=== PATIENT | male | born 1960 | race Caucasian/White ===

== ENCOUNTER 2017-12-13 18:45 | Inpatient (IN) | payer BC, SELFPAY ==
[2017-12-13 19:15] VITALS: BP 152/86; PULSE 100; RESP 18; TEMP 36.8; O2SAT 97; BMI 33.7
[2017-12-13] MEDS: fentaNYL 25 MCG Patch TRANSDERM. (20:17)
[2017-12-13] MEDS: oxyCODONE 5 MG Tablet PO (20:30)
[2017-12-13 20:37] VITALS: BMI 33.7
--- NOTE | 2017-12-13 20:54 | NURSING ---
pt reclining in bed with spouse at bedside. Pain medication administered and pt feeling fatigued. Will continue to monitor
[2017-12-13 21:05] VITALS: BP 150/86; PULSE 102; RESP 18; TEMP 36.8; O2SAT 97
[2017-12-13] MEDS: Atorvastatin Calcium 40 MG Tablet 80 MG PO (21:20)
[2017-12-13] MEDS: Gabapentin 300 MG Capsule PO (21:21)
[2017-12-13] MEDS: Senna/Docusate Sodium 1 Tablet 2 TABLET PO (21:21)
[2017-12-13] MEDS: Acetaminophen 500 MG Tablet 1000 MG PO (21:21)
[2017-12-13 21:45] LABS: Bedside Glucose 133 mg/dL (70-110)
[2017-12-13 22:00] VITALS: PULSE 102
[2017-12-14 05:55] LABS: Hematocrit 32.1 % (40-54); Hemoglobin 10.5 g/dl (13.0-16.5); Mean Corp Hgb Conc 32.7 g/gl (32-36); Mean Corpuscular Hgb 28.1 pg (27.0-32.0); Mean Corpuscular Volume 85.8 fL (80-94); Mean Platelet Vol. 8.5 fl (6.2-12.0); Platelet Count 355 K/mm3 (150-450); RBC Distribution Width CV 13.4 % (11.6-14.6); RBC Distribution Width SD 42.4 fl (35.1-43.9); Red Blood Count 3.74 M/mm3 (4.6-6.2); White Blood Count 11.7 K/mm3 (4.4-11.0)
[2017-12-14 06:04] LABS: Anion Gap 8 (5-15); BUN 22 mg/dL (7-18); BUN/Creat Ratio 29.3 RATIO (10-20); Calcium,Total 8.2 mg/dL (8.5-10.1); Chloride 96 mmol/L (98-107); Creatinine, Serum 0.75 mg/dL (0.70-1.30); EST Glomerular Filtration Rate 114 mL/min (>60); Est Glom Filt Rate - Afr Amer 138 mL/min (>60); Estimated Creatinine Clearance 127.87 ml/min; Glucose 121 mg/dL (74-106); Magnesium 2.3 mg/dL (1.6-2.6); Potassium 4.1 mmol/L (3.5-5.1); Sodium Level 132 mmol/L (136-145)
[2017-12-14 06:09] LABS: Scan Indicated on CBC? Y/N NO
[2017-12-14] MEDS: Acetaminophen 500 MG Tablet 1000 MG PO ×2 (06:39→13:18)
[2017-12-14] MEDS: Enoxaparin 40 MG/0.4 ML Syringe SC (06:39)
[2017-12-14 06:51] LABS: Bedside Glucose 129 mg/dL (70-110)
[2017-12-14 09:44] VITALS: BP 106/71; PULSE 115; RESP 18; TEMP 36.7; O2SAT 95
[2017-12-14] MEDS: oxyCODONE 5 MG Tablet PO ×3 (09:44→18:18)
[2017-12-14] MEDS: Citalopram 40 MG TABLET PO (09:45)
[2017-12-14] MEDS: amLODIPine 5 MG Tablet 10 MG PO (09:45)
[2017-12-14] MEDS: Ascorbic Acid 500 MG Tablet PO ×2 (09:45→17:17)
[2017-12-14] MEDS: hydroCHLOROthiazide 25 MG Tablet PO (09:45)
[2017-12-14 09:50] VITALS: PULSE 123
--- NOTE | 2017-12-14 10:12 | PCM.HP.COS ---
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 He has had ongoing knee pain and underwent a bilateral total knee replacement surgery performed 12/08/17 at the [facility] performed by Dr. Zamora. The postoperative course was uneventful however he did experience some pain. He now presents to [facility] acute rehab unit for rehabilitation in order to return home to his previous level of functional independence. He lives in a two-story house with his family as above, he will need to be able to manage stairs as well as travel to his basement. Past Medical History Past Medical History (Chronic Problems): Chronic Problems Depression (Chronic) Benign essential hypertension (Chronic) Low back pain (Chronic) Urinary incontinence (Chronic) Obesity (BMI 30.0-34.9) (Chronic) Elevated PSA (Chronic) recent biopsies done by DR. Monk are negative Allergies iohexol [From Omnipaque] Allergy (Verified 12/13/17 22:05) Rash Home Medications: Ambulatory Orders Medication Instructions Recorded Citalopram Hydrobromide 40 mg PO DAILY 07/05/16 [Citalopram HBr] Amlodipine [Norvasc] 10 mg PO DAILY 12/13/17 Aspirin E.C. [Ecotrin] mg PO 12/13/17 Atorvastatin Calcium [Lipitor] 80 mg PO QHS 12/13/17 Divalproex (ER) [Depakote ER] mg PO 12/13/17 Lisinopril [Zestril] mg PO 12/13/17 Pantoprazole Sodium [Protonix] 12/13/17 VTE Information - Inpt Only VTE Pharm Prophylaxis ordered?: Yes - Physical Exam Vital Signs Temp Pulse Resp BP Pulse Ox 36.7 C 123 H 18 106/71 95 12/14/17 09:44 12/14/17 09:50 12/14/17 09:44 12/14/17 09:44 12/14/17 09:44 Oxygen Delivery Method Room Air Weight: 119.204 kg Body Mass Index (BMI) 33.7 Finger Stick Blood Glucose 237 Intake and Output for Last 24 Hours 12/12/17 12/13/17 12/14/17 23:59 23:59 23:59 Intake Total 240 / 240 Balance 240 / 240 Laboratory Tests Past 24 Hrs 12/14/17 12/14/17 05:30 05:30 WBC 11.7 H RBC 3.74 L Hgb 10.5 L Hct 32.1 L MCV 85.8 MCH 28.1 MCHC 32.7 RDW 13.4 RDW Differential 42.4 Plt Count 355 MPV 8.5 Sodium 132 L Potassium 4.1 Chloride 96 L Carbon Dioxide 28.0 Anion Gap 8 BUN 22 H Creatinine 0.75 Estim Creat Clear Calc 127.87 Est GFR (MDRD) Af Amer 138 Est GFR (MDRD) Non-Af 114 BUN/Creatinine Ratio 29.3 H Glucose 121 H Calcium 8.2 L Phosphorus 3.0 Magnesium 2.3 POC Glucose 12/14/17 12/13/17 06:38 21:28 POC Glucose 129 H 133 H Assessment/Plan Impression: Debility status post bilateral knee replacement surgery complicated by history of hypertension, hyperlipidemia, and controlled depression. Goal of therapy is religious of prior level of functional independence. Plan: Physical therapy for gait and balance Occupational Therapy for ADLs As needed analgesics Bowel protocol Continue Celexa, depression appears to repeat a remote issue at this point Norvasc and hydrochlorothiazide for hypertension, controlled Lipitor for hyperlipidemia DVT prophylaxis: Lovenox <Jazmin Terrazas - Last Filed: 12/14/17 12:11> History of Present Illness The patient is a 57 year old right handed male, who was admitted to the rehab unit for rehabilitation after under going Bilateral Knee replacement at [facility] by Dr. Zamora on 12/08/17. The postoperative course was uncomplicated, he was experiencing a great deal of pain and discomfort and did have an episode of vagally down when using the toilet, but since then has had no issues. He has a pass medical history of HTN, HLD, BPH, Gout, Lumbago and a CVA in 2016, which left him with some memory difficulty. He is Obese with a BMI of 32.87. He lives with his and children in a 2 story home with 3 steps to get into the house and 13 steps to get up to their bedroom on the second floor. He is previously completely functionally independent, was driving, working and doing all his own ADL prior to his surgery. He is admitted to the rehab unit in order to restore his previous level of functional independence. Past Medical History Allergies iohexol [From Omnipaque] Allergy (Verified 12/13/17 22:05) Rash Surgical History: appendectomy, - - cervical dusion in [id number], prostate biopsy Psychiatric History: Depression - does not take his medication routinely Lives: Spouse/ Significant Other Smoking Status: Never smoker Alcohol: Occasional Drugs: None - *Family History Maternal History Items: - - His mother of a brain aneurysm, age 65 Paternal History Items: Cancer - bone and lung, age 75, - Review of Systems Constitutional: Denies: Chills, Fever, Weight Change HEENT: Denies: Head Aches, Sinus Congestion, Sinus Drainage Cardiovascular: Denies: Chest Pain, Palpitations Respiratory: Denies: Cough, Shortness of breath at rest, Sputum production Gastrointestinal: Denies: Abdominal Pain, Nausea, Vomiting Genitourinary: Denies: Dysuria Musculoskeletal: Denies: Joint Pain, Joint Tenderness Skin: Denies: Rash, Wounds Neurological: Denies: Numbness, Tingling, Focal weakness Psychiatric: Denies: Anxiety, Depression, Homicidal Ideations, Suicidal Ideations Hematologic/ Lymphatic: Denies: Easy Bruising, Easy Bleeding VTE Information - Inpt Only VTE Present on Admission: No VTE Mechan Device Prophylaxis: SCD's, Knee High AFTAB Hose VTE Pharm Prophylaxis ordered?: Yes - Physical Exam General: Alert, Oriented x3, Cooperative HEENT: Atraumatic, PERRLA, EOMI, Normocephalic Neck: Supple, No JVD, Negative Carotid Bruits Lungs: Clear to auscultation, Normal air movement Cardiovascular: Regular rate, No murmurs Abdomen: Bowel Sounds Present, Soft, Non Tender Extremities: No edema, Capillary Refill Less than 3 Seconds, - - Bilaterial knee incision, closed with dermabond, dressing in place is C/D/I, each incision measures 19cm, there is no drainage noted. Skin: No rashes, No breakdown Musculoskeletal: No Tenderness to Palpation of Joints or Extremities Neurological: Cranial nerves II-XII grossly intact Psych/Mental Status: Normal Affect, Appropriate, Alert and oriented to time, place, person, mood and affect Vital Signs Temp Pulse Resp BP Pulse Ox 98.1 F 123 H 18 106/71 95 12/14/17 09:44 12/14/17 09:50 12/14/17 09:44 12/14/17 09:44 12/14/17 09:44 Oxygen Delivery Method Room Air Weight: 119.204 kg Body Mass Index (BMI) 33.7 Finger Stick Blood Glucose 237 Intake and Output for Last 24 Hours 12/12/17 12/13/17 12/14/17 23:59 23:59 23:59 Intake Total 240 / 240 Balance 240 / 240 Laboratory Tests Past 24 Hrs 12/14/17 12/14/17 05:30 05:30 WBC 11.7 H RBC 3.74 L Hgb 10.5 L Hct 32.1 L MCV 85.8 MCH 28.1 MCHC 32.7 RDW 13.4 RDW Differential 42.4 Plt Count 355 MPV 8.5 Sodium 132 L Potassium 4.1 Chloride 96 L Carbon Dioxide 28.0 Anion Gap 8 BUN 22 H Creatinine 0.75 Estim Creat Clear Calc 127.87 Est GFR (MDRD) Af Amer 138 Est GFR (MDRD) Non-Af 114 BUN/Creatinine Ratio 29.3 H Glucose 121 H Calcium 8.2 L Phosphorus 3.0 Magnesium 2.3 POC Glucose 12/14/17 12/13/17 06:38 21:28 POC Glucose 129 H 133 H Active Medications Acetaminophen (Tylenol) 1,000 mg PO Q8 [facility] Last Admin: 12/14/17 06:39 Dose: 1,000 mg Amlodipine Besylate (Norvasc) 10 mg PO DAILY [facility] Last Admin: 12/14/17 09:45 Dose: 10 mg Ascorbic Acid (Vitamin C) 500 mg PO BIDCM [facility] Last Admin: 12/14/17 09:45 Dose: 500 mg Atorvastatin Calcium (Lipitor) 80 mg PO QHS [facility] Last Admin: 12/13/17 21:20 Dose: 80 mg Bisacodyl (Dulcolax) 10 mg RECTAL .PRN X 1 PRN PRN Reason: Constipation Citalopram Hydrobromide (Celexa) 40 mg PO DAILY [facility] Last Admin: 12/14/17 09:45 Dose: 40 mg Enoxaparin Sodium (Lovenox) 40 mg SC DAILY@0600 [facility] Last Admin: 04/03/18 06:39 Dose: 40 mg Fentanyl (Duragesic Patch) 25 mcg TRANSDERM. Q3D [facility] Last Admin: 12/13/17 20:17 Dose: 25 mcg Gabapentin (Neurontin) 300 mg PO QHS [facility] Last Admin: 12/13/17 21:21 Dose: 300 mg Hydrochlorothiazide (Hctz) 25 mg PO DAILY [facility] Last Admin: 12/14/17 09:45 Dose: 25 mg Magnesium Hydroxide (Milk Of Magnesia) 30 ml PO .PRN X 1 PRN PRN Reason: Constipation Ondansetron HCl (Zofran Odt) 4 mg PO Q6H PRN PRN PRN Reason: NAUSEA Oxycodone HCl (Oxyir) 5 - 10 mg PO Q6H PRN PRN PRN Reason: PAIN Last Admin: 12/14/17 09:44 Dose: 10 mg Polyethylene Glycol (Miralax) 17 gm PO DAILY PRN PRN PRN Reason: Constipation Senna/Docusate Sodium (Senokot-S, Zeenat-Colace) 2 tablet PO BID [facility] Last Admin: 12/14/17 09:47 Dose: Not Given
--- NOTE | 2017-12-14 10:23 | HP.PCM.COS_ITS ---
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 He has had ongoing knee pain and underwent a bilateral total knee replacement surgery performed 12/08/17 at the [facility] performed by Dr. Zamora. The postoperative course was uneventful however he did experience some pain. He now presents to [facility] acute rehab unit for rehabilitation in order to return home to his previous level of functional independence. He lives in a two-story house with his family as above, he will need to be able to manage stairs as well as travel to his basement. Past Medical History Past Medical History (Chronic Problems): Chronic Problems Depression (Chronic) Benign essential hypertension (Chronic) Low back pain (Chronic) Urinary incontinence (Chronic) Obesity (BMI 30.0-34.9) (Chronic) Elevated PSA (Chronic) recent biopsies done by DR. Monk are negative Allergies iohexol [From Omnipaque] Allergy (Verified 12/13/17 22:05) Rash Home Medications: Ambulatory Orders Medication Instructions Recorded Citalopram Hydrobromide 40 mg PO DAILY 07/05/16 [Citalopram HBr] Amlodipine [Norvasc] 10 mg PO DAILY 12/13/17 Aspirin E.C. [Ecotrin] mg PO 12/13/17 Atorvastatin Calcium [Lipitor] 80 mg PO QHS 12/13/17 Divalproex (ER) [Depakote ER] mg PO 12/13/17 Lisinopril [Zestril] mg PO 12/13/17 Pantoprazole Sodium [Protonix] 12/13/17 VTE Information - Inpt Only VTE Pharm Prophylaxis ordered?: Yes - Physical Exam Vital Signs Temp Pulse Resp BP Pulse Ox 36.7 C 123 H 18 106/71 95 12/14/17 09:44 12/14/17 09:50 12/14/17 09:44 12/14/17 09:44 12/14/17 09:44 Oxygen Delivery Method Room Air Weight: 119.204 kg Body Mass Index (BMI) 33.7 Finger Stick Blood Glucose 237 Intake and Output for Last 24 Hours 12/12/17 12/13/17 12/14/17 23:59 23:59 23:59 Intake Total 240 / 240 Balance 240 / 240 Laboratory Tests Past 24 Hrs 12/14/17 12/14/17 05:30 05:30 WBC 11.7 H RBC 3.74 L Hgb 10.5 L Hct 32.1 L MCV 85.8 MCH 28.1 MCHC 32.7 RDW 13.4 RDW Differential 42.4 Plt Count 355 MPV 8.5 Sodium 132 L Potassium 4.1 Chloride 96 L Carbon Dioxide 28.0 Anion Gap 8 BUN 22 H Creatinine 0.75 Estim Creat Clear Calc 127.87 Est GFR (MDRD) Af Amer 138 Est GFR (MDRD) Non-Af 114 BUN/Creatinine Ratio 29.3 H Glucose 121 H Calcium 8.2 L Phosphorus 3.0 Magnesium 2.3 POC Glucose 12/14/17 12/13/17 06:38 21:28 POC Glucose 129 H 133 H Assessment/Plan Impression: Debility status post bilateral knee replacement surgery complicated by history of hypertension, hyperlipidemia, and controlled depression. Goal of therapy is sikh of prior level of functional independence. Plan: Physical therapy for gait and balance Occupational Therapy for ADLs As needed analgesics Bowel protocol Continue Celexa, depression appears to repeat a remote issue at this point Norvasc and hydrochlorothiazide for hypertension, controlled Lipitor for hyperlipidemia DVT prophylaxis: Lovenox <Jazmin Terrazas - Last Filed: 12/14/17 12:11> History of Present Illness The patient is a 57 year old right handed male, who was admitted to the rehab unit for rehabilitation after under going Bilateral Knee replacement at [facility] by Dr. Zamora on 12/08/17. The postoperative course was uncomplicated, he was experiencing a great deal of pain and discomfort and did have an episode of vagally down when using the toilet, but since then has had no issues. He has a pass medical history of HTN, HLD, BPH, Gout, Lumbago and a CVA in 2016, which left him with some memory difficulty. He is Obese with a BMI of 32.87. He lives with his and children in a 2 story home with 3 steps to get into the house and 13 steps to get up to their bedroom on the second floor. He is previously completely functionally independent, was driving, working and doing all his own ADL prior to his surgery. He is admitted to the rehab unit in order to restore his previous level of functional independence. Past Medical History Allergies iohexol [From Omnipaque] Allergy (Verified 12/13/17 22:05) Rash Surgical History: appendectomy, - - cervical dusion in [id number], prostate biopsy Psychiatric History: Depression - does not take his medication routinely Lives: Spouse/ Significant Other Smoking Status: Never smoker Alcohol: Occasional Drugs: None - *Family History Maternal History Items: - - His mother of a brain aneurysm, age 65 Paternal History Items: Cancer - bone and lung, age 75, - Review of Systems Constitutional: Denies: Chills, Fever, Weight Change HEENT: Denies: Head Aches, Sinus Congestion, Sinus Drainage Cardiovascular: Denies: Chest Pain, Palpitations Respiratory: Denies: Cough, Shortness of breath at rest, Sputum production Gastrointestinal: Denies: Abdominal Pain, Nausea, Vomiting Genitourinary: Denies: Dysuria Musculoskeletal: Denies: Joint Pain, Joint Tenderness Skin: Denies: Rash, Wounds Neurological: Denies: Numbness, Tingling, Focal weakness Psychiatric: Denies: Anxiety, Depression, Homicidal Ideations, Suicidal Ideations Hematologic/ Lymphatic: Denies: Easy Bruising, Easy Bleeding VTE Information - Inpt Only VTE Present on Admission: No VTE Mechan Device Prophylaxis: SCD's, Knee High AFTAB Hose VTE Pharm Prophylaxis ordered?: Yes - Physical Exam General: Alert, Oriented x3, Cooperative HEENT: Atraumatic, PERRLA, EOMI, Normocephalic Neck: Supple, No JVD, Negative Carotid Bruits Lungs: Clear to auscultation, Normal air movement Cardiovascular: Regular rate, No murmurs Abdomen: Bowel Sounds Present, Soft, Non Tender Extremities: No edema, Capillary Refill Less than 3 Seconds, - - Bilaterial knee incision, closed with dermabond, dressing in place is C/D/I, each incision measures 19cm, there is no drainage noted. Skin: No rashes, No breakdown Musculoskeletal: No Tenderness to Palpation of Joints or Extremities Neurological: Cranial nerves II-XII grossly intact Psych/Mental Status: Normal Affect, Appropriate, Alert and oriented to time, place, person, mood and affect Vital Signs Temp Pulse Resp BP Pulse Ox 98.1 F 123 H 18 106/71 95 12/14/17 09:44 12/14/17 09:50 12/14/17 09:44 12/14/17 09:44 12/14/17 09:44 Oxygen Delivery Method Room Air Weight: 119.204 kg Body Mass Index (BMI) 33.7 Finger Stick Blood Glucose 237 Intake and Output for Last 24 Hours 12/12/17 12/13/17 12/14/17 23:59 23:59 23:59 Intake Total 240 / 240 Balance 240 / 240 Laboratory Tests Past 24 Hrs 12/14/17 12/14/17 05:30 05:30 WBC 11.7 H RBC 3.74 L Hgb 10.5 L Hct 32.1 L MCV 85.8 MCH 28.1 MCHC 32.7 RDW 13.4 RDW Differential 42.4 Plt Count 355 MPV 8.5 Sodium 132 L Potassium 4.1 Chloride 96 L Carbon Dioxide 28.0 Anion Gap 8 BUN 22 H Creatinine 0.75 Estim Creat Clear Calc 127.87 Est GFR (MDRD) Af Amer 138 Est GFR (MDRD) Non-Af 114 BUN/Creatinine Ratio 29.3 H Glucose 121 H Calcium 8.2 L Phosphorus 3.0 Magnesium 2.3 POC Glucose 12/14/17 12/13/17 06:38 21:28 POC Glucose 129 H 133 H Active Medications Acetaminophen (Tylenol) 1,000 mg PO Q8 [facility] Last Admin: 12/14/17 06:39 Dose: 1,000 mg Amlodipine Besylate (Norvasc) 10 mg PO DAILY [facility] Last Admin: 12/14/17 09:45 Dose: 10 mg Ascorbic Acid (Vitamin C) 500 mg PO BIDCM [facility] Last Admin: 12/14/17 09:45 Dose: 500 mg Atorvastatin Calcium (Lipitor) 80 mg PO QHS [facility] Last Admin: 12/13/17 21:20 Dose: 80 mg Bisacodyl (Dulcolax) 10 mg RECTAL .PRN X 1 PRN PRN Reason: Constipation Citalopram Hydrobromide (Celexa) 40 mg PO DAILY [facility] Last Admin: 12/14/17 09:45 Dose: 40 mg Enoxaparin Sodium (Lovenox) 40 mg SC DAILY@0600 [facility] Last Admin: 04/03/18 06:39 Dose: 40 mg Fentanyl (Duragesic Patch) 25 mcg TRANSDERM. Q3D [facility] Last Admin: 12/13/17 20:17 Dose: 25 mcg Gabapentin (Neurontin) 300 mg PO QHS [facility] Last Admin: 12/13/17 21:21 Dose: 300 mg Hydrochlorothiazide (Hctz) 25 mg PO DAILY [facility] Last Admin: 12/14/17 09:45 Dose: 25 mg Magnesium Hydroxide (Milk Of Magnesia) 30 ml PO .PRN X 1 PRN PRN Reason: Constipation Ondansetron HCl (Zofran Odt) 4 mg PO Q6H PRN PRN PRN Reason: NAUSEA Oxycodone HCl (Oxyir) 5 - 10 mg PO Q6H PRN PRN PRN Reason: PAIN Last Admin: 12/14/17 09:44 Dose: 10 mg Polyethylene Glycol (Miralax) 17 gm PO DAILY PRN PRN PRN Reason: Constipation Senna/Docusate Sodium (Senokot-S, Zeenat-Colace) 2 tablet PO BID [facility] Last Admin: 12/14/17 09:47 Dose: Not Given
[2017-12-14 11:00] VITALS: PULSE 120
--- NOTE | 2017-12-14 11:30 | NURSING ---
Tachy HR this AM and recheck HR tachy. Dr. Whalen aware. Labs ordered for tomorrow and UA to be done. Patient aware of orders. Very pleasant and cooperative. Patient rating pain high on 1-10 scale even after pain meds given and patient reported he had not taken any pain meds during the night and he should have. Will monitor.
--- NOTE | 2017-12-14 11:31 | PCM.RU.PYE ---
Admission Information Status Changes from Prescreening?: No changes Identified Actual Problem List:: Skin Intergrity, Pain, ALteration in Cmfrt, Depression, Mobility Impaired, Self Care Deficit, BP, Hypertension, Ineffect.D/C Plan r/t Psy Potential Problem List:: DVT, Bleeding, Infection, UTI, Aspiration, Falls, Skin Integrity, Depression Risk of Complications DVT: LMWH, AFTAB Hose, Sequential Compression Device Bleeding: Monitor Lab Values, Nursing to Teach Precautions for anti-coagulation therapy., Wound, if applicable, to be assessed every shift., Stroke patients assessed for lethargy or change in status. Infection: Clinical Staff to Monitor for S/S of infection:, S/S of infection include fever, redness, warmth, etc. Urinary Tract Infection: Monitor for frequency, burning, discomfort, or incontinence., Nursing will obtain urine sample for urinalysis and C&S when ordered. Aspiration: Clinical staff will monitor for coughing, drooling, congestion., Speech will evaluate swallowing and dsyphasia., Nursing will monitor patient swallowing during meals. Falls: Patient will be evaluated for Fall Precautions, Patient will be placed on Fall Precautions as indicated per protocol. Skin Breakdown: Nursing will assess skin daily using assessment tool., Nursing will place on Skin Breakdown Precautions as indicated. Pain: Clinical staff will assess patient's pain level per protocol., Medications will be given, if needed, and the pain level reassessed., Other methods: Massage, distraction, decrease stimulus, etc. used PRN. Plan of Care Patient requires physician specializing in physical medicine and rehab oversight to provide close medical supervision of rehab issues including: Pain Management, Sleep Problems, Bowel and Bladder, Medical and co-morbidity Management, DVT prophylaxis, Rehabilitation Leadership, Coordination of treatment team Patient needs Physical Therapy: For a minimum of 1 hour, At least 5 out of 7 days Patient needs Physical Therapy to improve:: Mobility, Mobility, Mobility, Strengthening, Transfers, Stretching, ROM, Endurance, Stairs, Gait, Balance Patient needs Occupational Therapy: For a minimum of 1 hour, At least 5 out of 7 days Patient needs Occupational Therapy to improve ADL's incl.: Eating, Grooming, Bathing, Dressing, Toileting, Toilet transfers, Community Reintegration, Higher functioning activities, Household tasks, Adaptive Equipment, Splinting, Other activities as determined Patient requires 24/ Rehabilitation Nursing for: Pain Issues, Identifying and preventing risk factors, Monitoring and reporting current medical conditions, Assisting with ambulation, transfer, and all ADL's, Teaching patients about disease process and medications, Family teaching, Providing safe environment, Bowel and Bladder Issues, Skin integrity, Medication Management Patient needs Operator Automated Process/ Case Management for: Discharge Planning, Arranging Home Equipment or Services, Family Interventions Patient needs Dietary and Nutrition Services for: Adequate Nutrition, Nutritional Supplements, Nutritional Education Goals Patient will remain: free from falls, or injury at time of discharge. Patient will perform bed mobility at: MOD I level of assist. Patient will complete transfers from bed to chair at: MOD I level of assist. Patient will ambulate: 100 feet, with MOD I assist, with LRD Patient will complete upper body dressing at: MOD I level of assist. Patient will complete lower body dressing at: MOD I level of assist. Patient will complete toileting at: MOD I level of assist. Patient will perform bathing at: MOD I level of assist. Patient will complete grooming at: MOD I level of assist. Patient will complete home management skills at: MOD I level of assist. Patient will achieve: 12 stairs, at MOD I assist Patient will have pain level of: of 3 or less Patient's skin will: remain intact, free from infection. Patient will receive: adequate nutrition. Discharge Planning Pt Prognosis for Sig. Practical Improv. w/in Reasonable Time: Good Anticipated D/C Destination: Home with Outpt Therapy Was Preadmission Assessment Accurate?: Yes
--- NOTE | 2017-12-14 13:42 | NURSING ---
Blood sugar done now due to patient refused lunch earlier but stated he would eat now.
[2017-12-14 13:46] LABS: Bedside Glucose 166 mg/dL (70-110)
--- NOTE | 2017-12-14 14:33 | PCM.PN.HOSP ---
Subjective: 57-year-old male with past medical history of CVA (2016), adjustment disorder with depression after CVA, hypertension, hyperlipidemia, degenerative disc disease, borderline diabetes type 2, BPH, who is status post bilateral total knee replacement admitted on 12/14/17 for acute rehab. Patient had bilateral total knee replacement surgery done on 12/08/2017 at the [facility]. His pain is fairly controlled, he denies dizziness, palpitations, chets pain, orthopnea, PND, leg swelling. Vitals/I&O's: Vital Signs Temp Pulse Resp BP Pulse Ox 98.1 F 123 H 18 106/71 95 12/14/17 09:44 12/14/17 09:50 12/14/17 09:44 12/14/17 09:44 12/14/17 09:44 Oxygen Delivery Method Room Air Weight: 119.204 kg Body Mass Index (BMI) 33.7 Finger Stick Blood Glucose 237 Intake and Output for Last 24 Hours 12/12/17 12/13/17 12/14/17 23:59 23:59 23:59 Intake Total 240 / 240 Balance 240 / 240 General: Alert, Oriented x3, Cooperative, No apparent distress HEENT: Atraumatic, PERRLA, EOMI, Normocephalic Oral: Moist Mucosa Neck: Supple Lungs: Clear to auscultation, Normal air movement Cardiovascular: Regular rate, Regular Rhythm, Normal S1, Normal S2, No murmurs Abdomen: Bowel Sounds Present, Soft, Non Tender, Non-Distended, No Hepato-splenomegaly, Obese Extremities: No edema Skin: No rashes, No breakdown Musculoskeletal: No Tenderness to Palpation of Joints or Extremities Lymphatic: No Cervical, Supraclavicular, or Inguinal Adenopathy Neurological: Cranial nerves II-XII grossly intact, Neuro grossly intact Psych/Mental Status: Normal Affect, Appropriate Laboratory Results 12/13/17 21:28: POC Glucose 133 H 12/14/17 05:30: WBC 11.7 H, RBC 3.74 L, Hgb 10.5 L, Hct 32.1 L, MCV 85.8, MCH 28.1, MCHC 32.7, RDW 13.4, RDW Differential 42.4, Plt Count 355, MPV 8.5 12/14/17 05:30: Sodium 132 L, Potassium 4.1, Chloride 96 L, Carbon Dioxide 28.0, Anion Gap 8, BUN 22 H, Creatinine 0.75, Estim Creat Clear Calc 127.87, Est GFR (MDRD) Af Amer 138, Est GFR (MDRD) Non-Af 114, BUN/Creatinine Ratio 29.3 H, Glucose 121 H, Calcium 8.2 L, Phosphorus 3.0, Magnesium 2.3 12/14/17 06:38: POC Glucose 129 H 12/14/17 13:40: POC Glucose 166 H Current Medications Acetaminophen (Tylenol) 1,000 mg PO Q8 [facility] Last Admin: 12/14/17 13:18 Dose: 1,000 mg Amlodipine Besylate (Norvasc) 10 mg PO DAILY [facility] Last Admin: 12/14/17 09:45 Dose: 10 mg Ascorbic Acid (Vitamin C) 500 mg PO BIDCM [facility] Last Admin: 12/14/17 09:45 Dose: 500 mg Atorvastatin Calcium (Lipitor) 80 mg PO QHS [facility] Last Admin: 12/13/17 21:20 Dose: 80 mg Bisacodyl (Dulcolax) 10 mg RECTAL .PRN X 1 PRN PRN Reason: Constipation Citalopram Hydrobromide (Celexa) 40 mg PO DAILY [facility] Last Admin: 12/14/17 09:45 Dose: 40 mg Enoxaparin Sodium (Lovenox) 40 mg SC DAILY@0600 [facility] Last Admin: 12/14/17 06:39 Dose: 40 mg Fentanyl (Duragesic Patch) 25 mcg TRANSDERM. Q3D [facility] Last Admin: 12/13/17 20:17 Dose: 25 mcg Gabapentin (Neurontin) 300 mg PO QHS [facility] Last Admin: 12/13/17 21:21 Dose: 300 mg Hydrochlorothiazide (Hctz) 25 mg PO DAILY [facility] Last Admin: 12/14/17 09:45 Dose: 25 mg Magnesium Hydroxide (Milk Of Magnesia) 30 ml PO .PRN X 1 PRN PRN Reason: Constipation Nutritional Formula (Lactose Free) (Ensure Enlive) 120 ml PO 4X/DAY [facility] Last Admin: 12/14/17 13:27 Dose: 120 ml Ondansetron HCl (Zofran Odt) 4 mg PO Q6H PRN PRN PRN Reason: NAUSEA Oxycodone HCl (Oxyir) 5 - 10 mg PO Q4H PRN PRN PRN Reason: PAIN Last Admin: 12/14/17 13:44 Dose: 10 mg Polyethylene Glycol (Miralax) 17 gm PO DAILY PRN PRN PRN Reason: Constipation Senna/Docusate Sodium (Senokot-S, Zeenat-Colace) 2 tablet PO BID [facility] Last Admin: 12/14/17 09:47 Dose: Not Given Medical Necessity - Tobacco Use Smoking Status: Never smoker Tobacco Use: Non-smoker Assessment/Plan 57-year-old male with past medical history of CVA (2016), adjustment disorder with depression after CVA, hypertension, hyperlipidemia, degenerative disc disease(neck), borderline diabetes type 2, BPH, who is status post bilateral total knee replacement admitted on 12/14/17 for acute rehab. Patient had bilateral total knee replacement surgery done on 12/08/2017 at the [facility]. 1. Debility due to recent bilateral knee replacement, here for rehabilitation 2. Bilateral knee replacement, in a patient by Dr. Aguilar arthritis, pain is fairly controlled on [place], will continue with therapy 3. Hypertension, controlled, continue home medication - amlodipine, HCTZ 4. Hyperlipidemia, on statin 5. Osteoarthritis of the knees/neck 6. Anxiety/depression, on Celexa 7. History of CVA, not on aspirin, on statin, 8. DVT PPx - Lovenox SC Code Visit Inpatient E&M: 33100 Subs Hosp L2
[2017-12-14 14:34] LABS: Bacteria 0 SEEN /hpf (None Seen); Mucous, Urine 0 SEEN /hpf (<or=2+); Red Blood Cells-Urine 0 SEEN /hpf (0-5); White Blood Cells 0 SEEN /hpf (0-5)
[2017-12-14 14:51] LABS: Squamous Epithelial Cells - UA 0-5 SEEN /hpf (0-5)
[2017-12-14 14:54] LABS: Color, Urine Yellow (Yellow); Glucose, Dipstick Normal (Normal); Ketone-Dipstick Negative (Negative); Leukocyte Esterase-Dipstick Negative /ul (Negative); Nitrite-Dipstick Negative (Negative); Occult Blood-Urine Negative /ul (Negative); Protein-Dipstick 15 mg/dl (Negative); Specific Gravity, Urine 1.015 (1.002-1.030); Urine Bilirubin Dipstick Negative (Negative); Urine Clarity Clear (Clear); Urine Urobilinogen 1 mg/dl (Normal)
[2017-12-14] MEDS: Senna/Docusate Sodium 1 Tablet 2 TABLET PO ×2 (17:17→21:12)
[2017-12-14 17:30] LABS: Bedside Glucose 121 mg/dL (70-110)
[2017-12-14 20:13] VITALS: PULSE 103
[2017-12-14 20:43] VITALS: BP 150/68; PULSE 103; RESP 18; TEMP 36.7; O2SAT 96
[2017-12-14 20:55] LABS: Bedside Glucose 148 mg/dL (70-110)
[2017-12-14] MEDS: Gabapentin 300 MG Capsule PO (21:12)
[2017-12-14] MEDS: Atorvastatin Calcium 40 MG Tablet 80 MG PO (21:12)
--- NOTE | 2017-12-14 21:46 | NURSING ---
pt Acetaminophen dosage exceeded with mg per day. Hospitalist called. N/O for 1xdose of Dilaudid 2mg provided for pain -03/22.
[2017-12-14] MEDS: Ondansetron ODT 4 MG Tablet PO (22:13)
[2017-12-14] MEDS: HYDROmorphone 2 MG TABLET PO (22:13)
[2017-12-15] MEDS: oxyCODONE 5 MG Tablet PO ×2 (03:00→07:36)
[2017-12-15] MEDS: Acetaminophen 500 MG Tablet 1000 MG PO (05:16)
[2017-12-15] MEDS: Enoxaparin 40 MG/0.4 ML Syringe SC (05:17)
--- NOTE | 2017-12-15 05:38 | NURSING ---
Dressing removed 05:40 on 12/15/2017. Scant drainage on right incision. No drainage to left drainage. Both left NIKKI. 2 steri strips per knee, 1 proximal and 1 distal incision. PT tolerated well
[2017-12-15 06:36] LABS: Bedside Glucose 198 mg/dL (70-110)
[2017-12-15 07:00] LABS: Hematocrit 32.7 % (40-54); Hemoglobin 10.6 g/dl (13.0-16.5); Mean Corp Hgb Conc 32.4 g/gl (32-36); Mean Corpuscular Hgb 27.9 pg (27.0-32.0); Mean Corpuscular Volume 86.1 fL (80-94); Mean Platelet Vol. 8.6 fl (6.2-12.0); Platelet Count 411 K/mm3 (150-450); RBC Distribution Width CV 13.4 % (11.6-14.6); RBC Distribution Width SD 42.1 fl (35.1-43.9); White Blood Count 15.2 K/mm3 (4.4-11.0)
[2017-12-15 07:02] LABS: Scan Indicated on CBC? Y/N NO
[2017-12-15] MEDS: Ascorbic Acid 500 MG Tablet PO ×2 (07:36→15:51)
[2017-12-15] MEDS: Senna/Docusate Sodium 1 Tablet 2 TABLET PO ×2 (07:36→21:33)
[2017-12-15 10:00] VITALS: BP 154/98; PULSE 104; RESP 16; TEMP 36.9; O2SAT 94
[2017-12-15] MEDS: amLODIPine 5 MG Tablet 10 MG PO (10:07)
[2017-12-15] MEDS: hydroCHLOROthiazide 25 MG Tablet PO (10:07)
[2017-12-15] MEDS: Citalopram 40 MG TABLET PO (10:07)
--- NOTE | 2017-12-15 10:26 | PCM.PN.NEU ---
Subjective: Patient seen and examined. Tolerating therapy. Bilateral incision, dressing is C/D/I, incision is well approximated, no redness or warmth noted along incision line. Denies any shortness of breath or chest pain. Denies any pain in his calves, or swelling in his legs. No issues with GI/. Patient had a CVA in 2015, was started on a statin but was not started on ASA or Plavix at that time, Denies a hx of ulcers or bleeding disorder, will start ASA 81mg. - Physical Exam General: Alert, Oriented x3, Cooperative HEENT: Atraumatic, PERRLA, EOMI, Normocephalic Neck: Supple, No JVD, Negative Carotid Bruits Lungs: Clear to auscultation, Normal air movement Cardiovascular: Regular rate, No murmurs Abdomen: Bowel Sounds Present, Soft, Non Tender Extremities: No edema, Capillary Refill Less than 3 Seconds Skin: No rashes, No breakdown Musculoskeletal: No Tenderness to Palpation of Joints or Extremities Neurological: Cranial nerves II-XII grossly intact Psych/Mental Status: Normal Affect, Appropriate Vital Signs Temp Pulse Resp BP Pulse Ox 98.1 F 104 H 16 154/98 H 94 12/14/17 20:43 12/15/17 10:00 12/15/17 10:00 12/15/17 10:00 12/15/17 10:00 Oxygen Delivery Method Room Air Weight: 113.2 kg Body Mass Index (BMI) 33.7 Finger Stick Blood Glucose 237 Intake and Output for Last 24 Hours 12/13/17 12/14/17 12/15/17 23:59 23:59 23:59 Intake Total 480 / 480 240 / 240 Output Total 250 / 250 325 / 325 Balance -250 / -250 155 / 155 240 / 240 Laboratory Tests Past 24 Hrs 12/14/17 12/15/17 13:09 06:45 WBC 15.2 H RBC 3.80 L Hgb 10.6 L Hct 32.7 L MCV 86.1 MCH 27.9 MCHC 32.4 RDW 13.4 RDW Differential 42.1 Plt Count 411 MPV 8.6 Urine Color Yellow Urine Clarity Clear Urine pH 6.0 Ur Specific [place] 1.015 Urine Protein 15 H Urine Glucose (UA) Normal Urine Ketones Negative Urine Occult Blood Negative Urine Nitrite Negative Urine Bilirubin Negative Urine Urobilinogen 1 H Ur Leukocyte Esterase Negative Urine RBC 0 SEEN Urine WBC 0 SEEN Ur Squamous Epith Cells 0-5 SEEN Urine Bacteria 0 SEEN Urine Mucus 0 SEEN POC Glucose 12/15/17 12/14/17 12/14/17 06:30 20:47 17:23 POC Glucose 198 H 148 H 121 H 12/14/17 13:40 POC Glucose 166 H Active Medications Acetaminophen (Tylenol) 1,000 mg PO Q8 [facility] Last Admin: 12/15/17 05:16 Dose: 1,000 mg Amlodipine Besylate (Norvasc) 10 mg PO DAILY [facility] Last Admin: 12/15/17 10:07 Dose: 10 mg Ascorbic Acid (Vitamin C) 500 mg PO BIDCM [facility] Last Admin: 12/15/17 07:36 Dose: 500 mg Atorvastatin Calcium (Lipitor) 80 mg PO QHS [facility] Last Admin: 12/14/17 21:12 Dose: 80 mg Bisacodyl (Dulcolax) 10 mg RECTAL .PRN X 1 PRN PRN Reason: Constipation Citalopram Hydrobromide (Celexa) 40 mg PO DAILY [facility] Last Admin: 12/15/17 10:07 Dose: 40 mg Enoxaparin Sodium (Lovenox) 40 mg SC DAILY@0600 [facility] Last Admin: 12/15/17 05:17 Dose: 40 mg Fentanyl (Duragesic Patch) 25 mcg TRANSDERM. Q3D [facility] Fentanyl (Duragesic Patch) 12 mcg TRANSDERM. Q72H [facility] Gabapentin (Neurontin) 300 mg PO QHS [facility] Last Admin: 12/14/17 21:12 Dose: 300 mg Hydrochlorothiazide (Hctz) 25 mg PO DAILY [facility] Last Admin: 12/15/17 10:07 Dose: 25 mg Magnesium Hydroxide (Milk Of Magnesia) 30 ml PO .PRN X 1 PRN PRN Reason: Constipation Megestrol Acetate (Megace) 40 mg PO 4X/DAY [facility] Nutritional Formula (Lactose Free) (Ensure Enlive) 120 ml PO 4X/DAY [facility] Last Admin: 12/15/17 10:07 Dose: 120 ml Ondansetron HCl (Zofran Odt) 4 mg PO Q6H PRN PRN PRN Reason: NAUSEA Last Admin: 12/14/17 22:13 Dose: 4 mg Oxycodone HCl (Oxyir) 5 - 10 mg PO Q4H PRN PRN PRN Reason: PAIN Last Admin: 12/15/17 07:36 Dose: 10 mg Polyethylene Glycol (Miralax) 17 gm PO DAILY PRN PRN PRN Reason: Constipation Senna/Docusate Sodium (Senokot-S, Zeenat-Colace) 2 tablet PO BID [facility] Last Admin: 12/15/17 07:36 Dose: 2 tablet Medical Necessity - Tobacco Use Smoking Status: Never smoker Tobacco Use: Non-smoker Assessment/Plan Impression: Debility status post bilateral knee replacement surgery complicated by history of hypertension, hyperlipidemia, and controlled depression. Goal of therapy is hinduism of prior level of functional independence. Plan: - Physical therapy for gait and balance - Occupational Therapy for ADLs - As needed analgesics - Bowel protocol - Continue Celexa, depression appears to repeat a remote issue at this point - Norvasc and hydrochlorothiazide for hypertension, controlled - Lipitor for hyperlipidemia - DVT prophylaxis: Lovenox, SCD, and Mino juan antonio - Increased fentanyl patch to 37 mcq - Poor appetite -> added Megace - Stroke prevention: ASA 81mg, and Statin
--- NOTE | 2017-12-15 10:46 | PN.NEURO_ITS ---
Subjective: Patient seen and examined. Tolerating therapy. Bilateral incision, dressing is C/D/I, incision is well approximated, no redness or warmth noted along incision line. Denies any shortness of breath or chest pain. Denies any pain in his calves, or swelling in his legs. No issues with GI/. Patient had a CVA in 2015 , was started on a statin but was not started on ASA or Plavix at that time, Denies a hx of ulcers or bleeding disorder, will start ASA 81mg. - Physical Exam General: Alert, Oriented x3, Cooperative HEENT: Atraumatic, PERRLA, EOMI, Normocephalic Neck: Supple, No JVD, Negative Carotid Bruits Lungs: Clear to auscultation, Normal air movement Cardiovascular: Regular rate, No murmurs Abdomen: Bowel Sounds Present, Soft, Non Tender Extremities: No edema, Capillary Refill Less than 3 Seconds Skin: No rashes, No breakdown Musculoskeletal: No Tenderness to Palpation of Joints or Extremities Neurological: Cranial nerves II-XII grossly intact Psych/Mental Status: Normal Affect, Appropriate Vital Signs Temp Pulse Resp BP Pulse Ox 98.1 F 104 H 16 154/98 H 94 12/14/17 20:43 12/15/17 10:00 12/15/17 10:00 12/15/17 10:00 12/15/17 10:00 Oxygen Delivery Method Room Air Weight: 113.2 kg Body Mass Index (BMI) 33.7 Finger Stick Blood Glucose 237 Intake and Output for Last 24 Hours 12/13/17 12/14/17 12/15/17 23:59 23:59 23:59 Intake Total 480 / 480 240 / 240 Output Total 250 / 250 325 / 325 Balance -250 / -250 155 / 155 240 / 240 Laboratory Tests Past 24 Hrs 12/14/17 12/15/17 13:09 06:45 WBC 15.2 H RBC 3.80 L Hgb 10.6 L Hct 32.7 L MCV 86.1 MCH 27.9 MCHC 32.4 RDW 13.4 RDW Differential 42.1 Plt Count 411 MPV 8.6 Urine Color Yellow Urine Clarity Clear Urine pH 6.0 Ur Specific [place] 1.015 Urine Protein 15 H Urine Glucose (UA) Normal Urine Ketones Negative Urine Occult Blood Negative Urine Nitrite Negative Urine Bilirubin Negative Urine Urobilinogen 1 H Ur Leukocyte Esterase Negative Urine RBC 0 SEEN Urine WBC 0 SEEN Ur Squamous Epith Cells 0-5 SEEN Urine Bacteria 0 SEEN Urine Mucus 0 SEEN POC Glucose 12/15/17 12/14/17 12/14/17 06:30 20:47 17:23 POC Glucose 198 H 148 H 121 H 12/14/17 13:40 POC Glucose 166 H Active Medications Acetaminophen (Tylenol) 1,000 mg PO Q8 [facility] Last Admin: 12/15/17 05:16 Dose: 1,000 mg Amlodipine Besylate (Norvasc) 10 mg PO DAILY [facility] Last Admin: 12/15/17 10:07 Dose: 10 mg Ascorbic Acid (Vitamin C) 500 mg PO BIDCM [facility] Last Admin: 12/15/17 07:36 Dose: 500 mg Atorvastatin Calcium (Lipitor) 80 mg PO QHS [facility] Last Admin: 12/14/17 21:12 Dose: 80 mg Bisacodyl (Dulcolax) 10 mg RECTAL .PRN X 1 PRN PRN Reason: Constipation Citalopram Hydrobromide (Celexa) 40 mg PO DAILY [facility] Last Admin: 12/15/17 10:07 Dose: 40 mg Enoxaparin Sodium (Lovenox) 40 mg SC DAILY@0600 [facility] Last Admin: 12/15/17 05:17 Dose: 40 mg Fentanyl (Duragesic Patch) 25 mcg TRANSDERM. Q3D [facility] Fentanyl (Duragesic Patch) 12 mcg TRANSDERM. Q72H [facility] Gabapentin (Neurontin) 300 mg PO QHS [facility] Last Admin: 12/14/17 21:12 Dose: 300 mg Hydrochlorothiazide (Hctz) 25 mg PO DAILY [facility] Last Admin: 12/15/17 10:07 Dose: 25 mg Magnesium Hydroxide (Milk Of Magnesia) 30 ml PO .PRN X 1 PRN PRN Reason: Constipation Megestrol Acetate (Megace) 40 mg PO 4X/DAY [facility] Nutritional Formula (Lactose Free) (Ensure Enlive) 120 ml PO 4X/DAY [facility] Last Admin: 12/15/17 10:07 Dose: 120 ml Ondansetron HCl (Zofran Odt) 4 mg PO Q6H PRN PRN PRN Reason: NAUSEA Last Admin: 12/14/17 22:13 Dose: 4 mg Oxycodone HCl (Oxyir) 5 - 10 mg PO Q4H PRN PRN PRN Reason: PAIN Last Admin: 12/15/17 07:36 Dose: 10 mg Polyethylene Glycol (Miralax) 17 gm PO DAILY PRN PRN PRN Reason: Constipation Senna/Docusate Sodium (Senokot-S, Zeenat-Colace) 2 tablet PO BID [facility] Last Admin: 12/15/17 07:36 Dose: 2 tablet Medical Necessity - Tobacco Use Smoking Status: Never smoker Tobacco Use: Non-smoker Assessment/Plan Impression: Debility status post bilateral knee replacement surgery complicated by history of hypertension, hyperlipidemia, and controlled depression. Goal of therapy is mormon of prior level of functional independence. Plan: - Physical therapy for gait and balance - Occupational Therapy for ADLs - As needed analgesics - Bowel protocol - Continue Celexa, depression appears to repeat a remote issue at this point - Norvasc and hydrochlorothiazide for hypertension, controlled - Lipitor for hyperlipidemia - DVT prophylaxis: Lovenox, SCD, and Mino juan antonio - Increased fentanyl patch to 37 mcq - Poor appetite -> added Megace - Stroke prevention: ASA 81mg, and Statin
[2017-12-15] MEDS: Ondansetron ODT 4 MG Tablet PO (11:18)
[2017-12-15] MEDS: fentaNYL 25 MCG Patch TRANSDERM. (11:19)
[2017-12-15 11:30] LABS: Bedside Glucose 157 mg/dL (70-110)
[2017-12-15] MEDS: HYDROcodone Bitartrate/Apap 5/325 Tablet PO ×2 (15:50→20:25)
[2017-12-15] MEDS: Aspirin 81 MG TAB.CHEW PO (15:52)
--- NOTE | 2017-12-15 15:53 | CASEMGMT ---
Social Work Updating insurance on this day. Collaborating with team and patient on discharge plan and patient ability to return home at this time. Therapy recommending for patient to continue with care and treatment within an inpatient rehab setting as patient is planning to return home and has steps to enter the home and negotiate the home. Patient is currently MaxA for stairs. Patient also have nausea on this day and requires cues for ambulating. Patient family is unable to be with patient at all times as patient family works or attending school. Patient lives with spouse and three children (1 high school age and 2 adults). Wanting to continue with patient on the Inpatient Rehab Unit at this time. Clinical information submitted to insurance. Pending continued stay approval. Auth#[id number] Will continue to follow. Divya NICKERSON, COLLECTOR OF PORT
[2017-12-15 17:45] LABS: Bedside Glucose 165 mg/dL (70-110)
[2017-12-15] MEDS: Megestrol 40 MG Tablet PO ×2 (18:29→21:34)
[2017-12-15 20:15] VITALS: BP 136/81; PULSE 102; RESP 20; TEMP 36.6; O2SAT 94
[2017-12-15] MEDS: Gabapentin 300 MG Capsule PO (21:33)
[2017-12-15] MEDS: Atorvastatin Calcium 40 MG Tablet 80 MG PO (21:34)
[2017-12-15 21:35] LABS: Bedside Glucose 131 mg/dL (70-110)
[2017-12-16] MEDS: HYDROcodone Bitartrate/Apap 5/325 Tablet PO ×4 (02:16→22:15)
[2017-12-16] MEDS: Enoxaparin 40 MG/0.4 ML Syringe SC (05:23)
[2017-12-16 06:03] LABS: Hematocrit 32.1 % (40-54); Hemoglobin 10.5 g/dl (13.0-16.5); Mean Corp Hgb Conc 32.7 g/gl (32-36); Mean Corpuscular Hgb 28.2 pg (27.0-32.0); Mean Corpuscular Volume 86.3 fL (80-94); Mean Platelet Vol. 8.6 fl (6.2-12.0); Platelet Count 540 K/mm3 (150-450); RBC Distribution Width CV 13.2 % (11.6-14.6); RBC Distribution Width SD 40.5 fl (35.1-43.9); Red Blood Count 3.72 M/mm3 (4.6-6.2)
[2017-12-16 06:06] LABS: Scan Indicated on CBC? Y/N NO
[2017-12-16 06:30] LABS: Bedside Glucose 126 mg/dL (70-110)
[2017-12-16 08:41] VITALS: BP 100/60; PULSE 121; RESP 18; TEMP 36.7; O2SAT 96
[2017-12-16] MEDS: Senna/Docusate Sodium 1 Tablet 2 TABLET PO ×2 (10:42→21:41)
[2017-12-16] MEDS: amLODIPine 5 MG Tablet 10 MG PO (10:42)
[2017-12-16] MEDS: Ascorbic Acid 500 MG Tablet PO ×2 (10:43→17:49)
[2017-12-16] MEDS: hydroCHLOROthiazide 25 MG Tablet PO (10:43)
[2017-12-16] MEDS: Aspirin 81 MG TAB.CHEW PO (10:43)
[2017-12-16] MEDS: Citalopram 40 MG TABLET PO (10:43)
[2017-12-16 10:46] LABS: Bedside Glucose 145 mg/dL (70-110)
[2017-12-16] MEDS: Megestrol 40 MG Tablet PO ×4 (10:47→21:41)
--- NOTE | 2017-12-16 10:54 | PCM.PN.NEU ---
Subjective: Patient seen and examined. Nursing noted irregular heart beat during vital signs will obtain an EKG, will continue to monitor. Denies any shortness of breath or chest pains. He is currently Tolerating therapy, his pain is controlled on the current pain medications. No issues with GI/. Dressing over bilateral incision is C/D/I, no warmth or redness noted along incision site. - Physical Exam General: Alert, Oriented x3, Cooperative HEENT: Atraumatic, PERRLA, EOMI, Normocephalic Neck: Supple, No JVD, Negative Carotid Bruits Lungs: Clear to auscultation, Normal air movement Cardiovascular: Regular rate, No murmurs Abdomen: Bowel Sounds Present, Soft, Non Tender Extremities: No edema, Capillary Refill Less than 3 Seconds Skin: No rashes, No breakdown Musculoskeletal: No Tenderness to Palpation of Joints or Extremities Neurological: Cranial nerves II-XII grossly intact Psych/Mental Status: Normal Affect, Appropriate Vital Signs Temp Pulse Resp BP Pulse Ox 98.1 F 121 H 18 100/60 96 12/16/17 08:41 12/16/17 08:41 12/16/17 08:41 12/16/17 08:41 12/16/17 08:41 Oxygen Delivery Method Room Air Weight: 113.2 kg Body Mass Index (BMI) 33.7 Finger Stick Blood Glucose 237 Intake and Output for Last 24 Hours 12/14/17 12/15/17 12/16/17 23:59 23:59 23:59 Intake Total 480 / 480 700 / 700 240 / 240 Output Total 325 / 325 Balance 155 / 155 700 / 700 240 / 240 Laboratory Tests Past 24 Hrs 12/16/17 05:20 WBC 14.0 H RBC 3.72 L Hgb 10.5 L Hct 32.1 L MCV 86.3 MCH 28.2 MCHC 32.7 RDW 13.2 RDW Differential 40.5 Plt Count 540 H MPV 8.6 POC Glucose 12/16/17 12/16/17 12/15/17 10:40 06:27 21:29 POC Glucose 145 H 126 H 131 H 12/15/17 12/15/17 17:32 11:28 POC Glucose 165 H 157 H Active Medications Hydrocodone Bitart/Acetaminophen ([place] 5mg-325mg) 1 - 2 tablet PO Q4H PRN PRN PRN Reason: SEVERE PAIN (6-10/10) Last Admin: 12/16/17 10:43 Dose: 2 tablet Amlodipine Besylate (Norvasc) 10 mg PO DAILY [facility] Last Admin: 12/16/17 10:42 Dose: 10 mg Ascorbic Acid (Vitamin C) 500 mg PO BIDCM [facility] Last Admin: 12/16/17 10:43 Dose: 500 mg Aspirin (Aspirin, Baby) 81 mg PO DAILY@0800 [facility] Last Admin: 12/16/17 10:43 Dose: 81 mg Atorvastatin Calcium (Lipitor) 80 mg PO QHS [facility] Last Admin: 12/15/17 21:34 Dose: 80 mg Bisacodyl (Dulcolax) 10 mg RECTAL .PRN X 1 PRN PRN Reason: Constipation Citalopram Hydrobromide (Celexa) 40 mg PO DAILY [facility] Last Admin: 12/16/17 10:43 Dose: 40 mg Enoxaparin Sodium (Lovenox) 40 mg SC DAILY@0600 [facility] Last Admin: 12/16/17 05:23 Dose: 40 mg Fentanyl (Duragesic Patch) 25 mcg TRANSDERM. Q3D [facility] Last Admin: 12/15/17 11:19 Dose: 25 mcg Fentanyl (Duragesic Patch) 12 mcg TRANSDERM. Q72H [facility] Last Admin: 12/15/17 11:19 Dose: 12 mcg Gabapentin (Neurontin) 300 mg PO QHS [facility] Last Admin: 12/15/17 21:33 Dose: 300 mg Hydrochlorothiazide (Hctz) 25 mg PO DAILY [facility] Last Admin: 12/16/17 10:43 Dose: 25 mg Magnesium Hydroxide (Milk Of Magnesia) 30 ml PO .PRN X 1 PRN PRN Reason: Constipation Megestrol Acetate (Megace) 40 mg PO 4X/DAY [facility] Last Admin: 12/16/17 10:47 Dose: 40 mg Nutritional Formula (Lactose Free) (Ensure Enlive) 120 ml PO 4X/DAY [facility] Last Admin: 12/16/17 10:42 Dose: 120 ml Ondansetron HCl (Zofran Odt) 4 mg PO Q6H PRN PRN PRN Reason: NAUSEA Last Admin: 12/15/17 11:18 Dose: 4 mg Oxycodone HCl (Oxyir) 5 - 10 mg PO Q4H PRN PRN PRN Reason: PAIN Last Admin: 12/15/17 07:36 Dose: 10 mg Polyethylene Glycol (Miralax) 17 gm PO DAILY PRN PRN PRN Reason: Constipation Senna/Docusate Sodium (Senokot-S, Zeenat-Colace) 2 tablet PO BID [facility] Last Admin: 12/16/17 10:42 Dose: 2 tablet Medical Necessity - Tobacco Use Smoking Status: Never smoker Tobacco Use: Non-smoker Assessment/Plan Impression: Debility status post bilateral knee replacement surgery complicated by history of hypertension, hyperlipidemia, and controlled depression. Goal of therapy is yarsani of prior level of functional independence. Plan: - Physical therapy for gait and balance - Occupational Therapy for ADLs - As needed analgesics - Bowel protocol - Continue Celexa, depression appears to repeat a remote issue at this point - Norvasc and hydrochlorothiazide for hypertension, controlled - Lipitor for hyperlipidemia - DVT prophylaxis: Lovenox, SCD, and Mino hoses - Increased fentanyl patch to 37 mcq - Poor appetite -> added Megace - Stroke prevention: ASA 81mg, and Statin - 30 day event monitor on discharge - Incision sites are C/D/I no warmth or redness noted along the incision
--- NOTE | 2017-12-16 10:59 | PN.NEURO_ITS ---
Subjective: Patient seen and examined. Nursing noted irregular heart beat during vital signs will obtain an EKG, will continue to monitor. Denies any shortness of breath or chest pains. He is currently Tolerating therapy, his pain is controlled on the current pain medications. No issues with GI/. Dressing over bilateral incision is C/D/I, no warmth or redness noted along incision site. - Physical Exam General: Alert, Oriented x3, Cooperative HEENT: Atraumatic, PERRLA, EOMI, Normocephalic Neck: Supple, No JVD, Negative Carotid Bruits Lungs: Clear to auscultation, Normal air movement Cardiovascular: Regular rate, No murmurs Abdomen: Bowel Sounds Present, Soft, Non Tender Extremities: No edema, Capillary Refill Less than 3 Seconds Skin: No rashes, No breakdown Musculoskeletal: No Tenderness to Palpation of Joints or Extremities Neurological: Cranial nerves II-XII grossly intact Psych/Mental Status: Normal Affect, Appropriate Vital Signs Temp Pulse Resp BP Pulse Ox 98.1 F 121 H 18 100/60 96 12/16/17 08:41 12/16/17 08:41 12/16/17 08:41 12/16/17 08:41 12/16/17 08:41 Oxygen Delivery Method Room Air Weight: 113.2 kg Body Mass Index (BMI) 33.7 Finger Stick Blood Glucose 237 Intake and Output for Last 24 Hours 12/14/17 12/15/17 12/16/17 23:59 23:59 23:59 Intake Total 480 / 480 700 / 700 240 / 240 Output Total 325 / 325 Balance 155 / 155 700 / 700 240 / 240 Laboratory Tests Past 24 Hrs 12/16/17 05:20 WBC 14.0 H RBC 3.72 L Hgb 10.5 L Hct 32.1 L MCV 86.3 MCH 28.2 MCHC 32.7 RDW 13.2 RDW Differential 40.5 Plt Count 540 H MPV 8.6 POC Glucose 12/16/17 12/16/17 12/15/17 10:40 06:27 21:29 POC Glucose 145 H 126 H 131 H 12/15/17 12/15/17 17:32 11:28 POC Glucose 165 H 157 H Active Medications Hydrocodone Bitart/Acetaminophen ([place] 5mg-325mg) 1 - 2 tablet PO Q4H PRN PRN PRN Reason: SEVERE PAIN (6-10/10) Last Admin: 12/16/17 10:43 Dose: 2 tablet Amlodipine Besylate (Norvasc) 10 mg PO DAILY [facility] Last Admin: 12/16/17 10:42 Dose: 10 mg Ascorbic Acid (Vitamin C) 500 mg PO BIDCM [facility] Last Admin: 12/16/17 10:43 Dose: 500 mg Aspirin (Aspirin, Baby) 81 mg PO DAILY@0800 [facility] Last Admin: 12/16/17 10:43 Dose: 81 mg Atorvastatin Calcium (Lipitor) 80 mg PO QHS [facility] Last Admin: 12/15/17 21:34 Dose: 80 mg Bisacodyl (Dulcolax) 10 mg RECTAL .PRN X 1 PRN PRN Reason: Constipation Citalopram Hydrobromide (Celexa) 40 mg PO DAILY [facility] Last Admin: 12/16/17 10:43 Dose: 40 mg Enoxaparin Sodium (Lovenox) 40 mg SC DAILY@0600 [facility] Last Admin: 12/16/17 05:23 Dose: 40 mg Fentanyl (Duragesic Patch) 25 mcg TRANSDERM. Q3D [facility] Last Admin: 12/15/17 11:19 Dose: 25 mcg Fentanyl (Duragesic Patch) 12 mcg TRANSDERM. Q72H [facility] Last Admin: 12/15/17 11:19 Dose: 12 mcg Gabapentin (Neurontin) 300 mg PO QHS [facility] Last Admin: 12/15/17 21:33 Dose: 300 mg Hydrochlorothiazide (Hctz) 25 mg PO DAILY [facility] Last Admin: 12/16/17 10:43 Dose: 25 mg Magnesium Hydroxide (Milk Of Magnesia) 30 ml PO .PRN X 1 PRN PRN Reason: Constipation Megestrol Acetate (Megace) 40 mg PO 4X/DAY [facility] Last Admin: 12/16/17 10:47 Dose: 40 mg Nutritional Formula (Lactose Free) (Ensure Enlive) 120 ml PO 4X/DAY [facility] Last Admin: 12/16/17 10:42 Dose: 120 ml Ondansetron HCl (Zofran Odt) 4 mg PO Q6H PRN PRN PRN Reason: NAUSEA Last Admin: 12/15/17 11:18 Dose: 4 mg Oxycodone HCl (Oxyir) 5 - 10 mg PO Q4H PRN PRN PRN Reason: PAIN Last Admin: 12/15/17 07:36 Dose: 10 mg Polyethylene Glycol (Miralax) 17 gm PO DAILY PRN PRN PRN Reason: Constipation Senna/Docusate Sodium (Senokot-S, Zeenat-Colace) 2 tablet PO BID [facility] Last Admin: 12/16/17 10:42 Dose: 2 tablet Medical Necessity - Tobacco Use Smoking Status: Never smoker Tobacco Use: Non-smoker Assessment/Plan Impression: Debility status post bilateral knee replacement surgery complicated by history of hypertension, hyperlipidemia, and controlled depression. Goal of therapy is yazdanism of prior level of functional independence. Plan: - Physical therapy for gait and balance - Occupational Therapy for ADLs - As needed analgesics - Bowel protocol - Continue Celexa, depression appears to repeat a remote issue at this point - Norvasc and hydrochlorothiazide for hypertension, controlled - Lipitor for hyperlipidemia - DVT prophylaxis: Lovenox, SCD, and Mino hoses - Increased fentanyl patch to 37 mcq - Poor appetite -> added Megace - Stroke prevention: ASA 81mg, and Statin - 30 day event monitor on discharge - Incision sites are C/D/I no warmth or redness noted along the incision
[2017-12-16] MEDS: Magnesium Hydroxide 30 ML UDC PO (12:02)
--- NOTE | 2017-12-16 16:37 | CHAPLAIN ---
Type of Pastoral Visit _x__ Initial Visit ___ Follow-up Visit ___ On-call Visit ___ General Patient Visit ___ Spiritual Assessment ___ Family Conference ___ Bereavement ___ Rapid Response ___ Code Blue ___ Other (describe below) Pastoral Care Referral From _x__ Patient ___ Family ___ Nurse ___ Physician ___ Cable Television Program Director ___ Creative Developer ___ Other (describe below) Sacrament/Intervention _x__ Active listening ___ Anointing ___ Judaism ___ Bereavement ___ Communion _x__ Hyun exploration ___ _x__ Life review _x__ Prayer ___ Reconciliation ___ Sacrament of Sick _x__ Supportive presence ___ Wedding ___ Other (describe below) Pastoral Comments 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
[2017-12-16 18:51] LABS: Bedside Glucose 196 mg/dL (70-110)
[2017-12-16 20:00] VITALS: BP 130/74; PULSE 108; RESP 16; TEMP 37.1; O2SAT 95
[2017-12-16] MEDS: Gabapentin 300 MG Capsule PO (21:41)
[2017-12-16] MEDS: Atorvastatin Calcium 40 MG Tablet 80 MG PO (21:41)
[2017-12-16 22:15] LABS: Bedside Glucose 160 mg/dL (70-110)
[2017-12-17 06:30] LABS: Bedside Glucose 117 mg/dL (70-110)
[2017-12-17] MEDS: Enoxaparin 40 MG/0.4 ML Syringe SC (06:59)
[2017-12-17] MEDS: Ondansetron ODT 4 MG Tablet PO (06:59)
[2017-12-17 08:21] VITALS: BP 144/88; PULSE 106; RESP 19; TEMP 36.7; O2SAT 95
[2017-12-17] MEDS: Senna/Docusate Sodium 1 Tablet 2 TABLET PO ×2 (09:04→20:44)
[2017-12-17] MEDS: amLODIPine 5 MG Tablet 10 MG PO (09:04)
[2017-12-17] MEDS: Aspirin 81 MG TAB.CHEW PO (09:05)
[2017-12-17] MEDS: Megestrol 40 MG Tablet PO ×4 (09:05→20:44)
[2017-12-17] MEDS: HYDROcodone Bitartrate/Apap 5/325 Tablet PO ×4 (09:05→22:13)
[2017-12-17] MEDS: hydroCHLOROthiazide 25 MG Tablet PO (09:05)
[2017-12-17] MEDS: Ascorbic Acid 500 MG Tablet PO ×2 (09:05→17:39)
[2017-12-17] MEDS: Citalopram 40 MG TABLET PO (09:05)
--- NOTE | 2017-12-17 11:54 | PCM.PN.NEU ---
Subjective: Patient lying quietly in bed taking a nap, easily aroused. Tolerating therapy. Pain is reasonable but still having issues, will make adjustment to dose, Fentanyl is 50 mcq, and [place] is 5mg/325mg. No issues with GI/. - Physical Exam General: Alert, Oriented x3, Cooperative HEENT: Atraumatic, PERRLA, EOMI, Normocephalic Neck: Supple, No JVD, Negative Carotid Bruits Lungs: Clear to auscultation, Normal air movement Cardiovascular: Regular rate, No murmurs Abdomen: Bowel Sounds Present, Soft, Non Tender Extremities: No edema, Capillary Refill Less than 3 Seconds Skin: No rashes, No breakdown Musculoskeletal: No Tenderness to Palpation of Joints or Extremities Neurological: Cranial nerves II-XII grossly intact Psych/Mental Status: Normal Affect, Appropriate Vital Signs Temp Pulse Resp BP Pulse Ox 98.0 F 106 H 19 H 144/88 H 95 12/17/17 08:21 12/17/17 08:21 12/17/17 08:21 12/17/17 08:21 12/17/17 08:21 Oxygen Delivery Method Room Air Weight: 113.2 kg Body Mass Index (BMI) 33.7 Finger Stick Blood Glucose 237 Intake and Output for Last 24 Hours 12/15/17 12/16/17 12/17/17 23:59 23:59 23:59 Intake Total 700 / 700 360 / 360 120 / 120 Balance 700 / 700 360 / 360 120 / 120 POC Glucose 12/17/17 12/16/17 12/16/17 06:27 21:55 18:48 POC Glucose 117 H 160 H 196 H Active Medications Hydrocodone Bitart/Acetaminophen ([place] 5mg-325mg) 1 - 2 tablet PO Q4H PRN PRN PRN Reason: SEVERE PAIN (6-10/10) Last Admin: 12/17/17 09:05 Dose: 2 tablet Amlodipine Besylate (Norvasc) 10 mg PO DAILY [facility] Last Admin: 12/17/17 09:04 Dose: 10 mg Ascorbic Acid (Vitamin C) 500 mg PO BIDCM [facility] Last Admin: 12/17/17 09:05 Dose: 500 mg Aspirin (Aspirin, Baby) 81 mg PO DAILY@0800 [facility] Last Admin: 12/17/17 09:05 Dose: 81 mg Atorvastatin Calcium (Lipitor) 80 mg PO QHS [facility] Last Admin: 12/16/17 21:41 Dose: 80 mg Bisacodyl (Dulcolax) 10 mg RECTAL .PRN X 1 PRN PRN Reason: Constipation Citalopram Hydrobromide (Celexa) 40 mg PO DAILY [facility] Last Admin: 12/17/17 09:05 Dose: 40 mg Enoxaparin Sodium (Lovenox) 40 mg SC DAILY@0600 [facility] Last Admin: 12/17/17 06:59 Dose: 40 mg Fentanyl (Duragesic Patch) 50 mcg TRANSDERM. Q3D [facility] Last Admin: 12/16/17 17:49 Dose: 50 mcg Gabapentin (Neurontin) 300 mg PO QHS [facility] Last Admin: 12/16/17 21:41 Dose: 300 mg Hydrochlorothiazide (Hctz) 25 mg PO DAILY [facility] Last Admin: 12/17/17 09:05 Dose: 25 mg Magnesium Hydroxide (Milk Of Magnesia) 30 ml PO .PRN X 1 PRN PRN Reason: Constipation Last Admin: 12/16/17 12:02 Dose: 30 ml Megestrol Acetate (Megace) 40 mg PO 4X/DAY [facility] Last Admin: 12/17/17 09:05 Dose: 40 mg Nutritional Formula (Lactose Free) (Ensure Enlive) 120 ml PO 4X/DAY [facility] Last Admin: 12/17/17 09:06 Dose: 120 ml Ondansetron HCl (Zofran Odt) 4 mg PO Q6H PRN PRN PRN Reason: NAUSEA Last Admin: 12/17/17 06:59 Dose: 4 mg Polyethylene Glycol (Miralax) 17 gm PO DAILY PRN PRN PRN Reason: Constipation Senna/Docusate Sodium (Senokot-S, Zeenat-Colace) 2 tablet PO BID [facility] Last Admin: 12/17/17 09:04 Dose: 2 tablet Medical Necessity - Tobacco Use Smoking Status: Never smoker Tobacco Use: Non-smoker Assessment/Plan Impression: Debility status post bilateral knee replacement surgery complicated by history of hypertension, hyperlipidemia, and controlled depression. Goal of therapy is evangelical of prior level of functional independence. Plan: - Physical therapy for gait and balance - Occupational Therapy for ADLs - As needed analgesics - Bowel protocol - Continue Celexa, depression appears to repeat a remote issue at this point - Norvasc and hydrochlorothiazide for hypertension, controlled - Lipitor for hyperlipidemia - DVT prophylaxis: Lovenox, SCD, and Mino hoses - Increased fentanyl patch to 37 mcq - Poor appetite -> added Megace - Stroke prevention: ASA 81mg, and Statin - 30 day event monitor on discharge - Incision sites are C/D/I no warmth or redness noted along the incision
--- NOTE | 2017-12-17 11:59 | PN.NEURO_ITS ---
Subjective: Patient lying quietly in bed taking a nap, easily aroused. Tolerating therapy. Pain is reasonable but still having issues, will make adjustment to dose, Fentanyl is 50 mcq, and [place] is 5mg/325mg. No issues with GI/. - Physical Exam General: Alert, Oriented x3, Cooperative HEENT: Atraumatic, PERRLA, EOMI, Normocephalic Neck: Supple, No JVD, Negative Carotid Bruits Lungs: Clear to auscultation, Normal air movement Cardiovascular: Regular rate, No murmurs Abdomen: Bowel Sounds Present, Soft, Non Tender Extremities: No edema, Capillary Refill Less than 3 Seconds Skin: No rashes, No breakdown Musculoskeletal: No Tenderness to Palpation of Joints or Extremities Neurological: Cranial nerves II-XII grossly intact Psych/Mental Status: Normal Affect, Appropriate Vital Signs Temp Pulse Resp BP Pulse Ox 98.0 F 106 H 19 H 144/88 H 95 12/17/17 08:21 12/17/17 08:21 12/17/17 08:21 12/17/17 08:21 12/17/17 08:21 Oxygen Delivery Method Room Air Weight: 113.2 kg Body Mass Index (BMI) 33.7 Finger Stick Blood Glucose 237 Intake and Output for Last 24 Hours 12/15/17 12/16/17 12/17/17 23:59 23:59 23:59 Intake Total 700 / 700 360 / 360 120 / 120 Balance 700 / 700 360 / 360 120 / 120 POC Glucose 12/17/17 12/16/17 12/16/17 06:27 21:55 18:48 POC Glucose 117 H 160 H 196 H Active Medications Hydrocodone Bitart/Acetaminophen ([place] 5mg-325mg) 1 - 2 tablet PO Q4H PRN PRN PRN Reason: SEVERE PAIN (6-10/10) Last Admin: 12/17/17 09:05 Dose: 2 tablet Amlodipine Besylate (Norvasc) 10 mg PO DAILY [facility] Last Admin: 12/17/17 09:04 Dose: 10 mg Ascorbic Acid (Vitamin C) 500 mg PO BIDCM [facility] Last Admin: 12/17/17 09:05 Dose: 500 mg Aspirin (Aspirin, Baby) 81 mg PO DAILY@0800 [facility] Last Admin: 12/17/17 09:05 Dose: 81 mg Atorvastatin Calcium (Lipitor) 80 mg PO QHS [facility] Last Admin: 12/16/17 21:41 Dose: 80 mg Bisacodyl (Dulcolax) 10 mg RECTAL .PRN X 1 PRN PRN Reason: Constipation Citalopram Hydrobromide (Celexa) 40 mg PO DAILY [facility] Last Admin: 12/17/17 09:05 Dose: 40 mg Enoxaparin Sodium (Lovenox) 40 mg SC DAILY@0600 [facility] Last Admin: 12/17/17 06:59 Dose: 40 mg Fentanyl (Duragesic Patch) 50 mcg TRANSDERM. Q3D [facility] Last Admin: 12/16/17 17:49 Dose: 50 mcg Gabapentin (Neurontin) 300 mg PO QHS [facility] Last Admin: 12/16/17 21:41 Dose: 300 mg Hydrochlorothiazide (Hctz) 25 mg PO DAILY [facility] Last Admin: 12/17/17 09:05 Dose: 25 mg Magnesium Hydroxide (Milk Of Magnesia) 30 ml PO .PRN X 1 PRN PRN Reason: Constipation Last Admin: 12/16/17 12:02 Dose: 30 ml Megestrol Acetate (Megace) 40 mg PO 4X/DAY [facility] Last Admin: 12/17/17 09:05 Dose: 40 mg Nutritional Formula (Lactose Free) (Ensure Enlive) 120 ml PO 4X/DAY [facility] Last Admin: 12/17/17 09:06 Dose: 120 ml Ondansetron HCl (Zofran Odt) 4 mg PO Q6H PRN PRN PRN Reason: NAUSEA Last Admin: 12/17/17 06:59 Dose: 4 mg Polyethylene Glycol (Miralax) 17 gm PO DAILY PRN PRN PRN Reason: Constipation Senna/Docusate Sodium (Senokot-S, Zeenat-Colace) 2 tablet PO BID [facility] Last Admin: 12/17/17 09:04 Dose: 2 tablet Medical Necessity - Tobacco Use Smoking Status: Never smoker Tobacco Use: Non-smoker Assessment/Plan Impression: Debility status post bilateral knee replacement surgery complicated by history of hypertension, hyperlipidemia, and controlled depression. Goal of therapy is jew of prior level of functional independence. Plan: - Physical therapy for gait and balance - Occupational Therapy for ADLs - As needed analgesics - Bowel protocol - Continue Celexa, depression appears to repeat a remote issue at this point - Norvasc and hydrochlorothiazide for hypertension, controlled - Lipitor for hyperlipidemia - DVT prophylaxis: Lovenox, SCD, and Mino hoses - Increased fentanyl patch to 37 mcq - Poor appetite -> added Megace - Stroke prevention: ASA 81mg, and Statin - 30 day event monitor on discharge - Incision sites are C/D/I no warmth or redness noted along the incision
[2017-12-17 20:40] VITALS: BP 138/74; PULSE 100; RESP 16; TEMP 36.7; O2SAT 96
[2017-12-17] MEDS: Atorvastatin Calcium 40 MG Tablet 80 MG PO (20:43)
[2017-12-17] MEDS: Magnesium Hydroxide 30 ML UDC PO (20:43)
[2017-12-17] MEDS: Gabapentin 300 MG Capsule PO (20:44)
[2017-12-18] MEDS: HYDROcodone Bitartrate/Apap 5/325 Tablet PO ×2 (05:28→18:27)
[2017-12-18] MEDS: Enoxaparin 40 MG/0.4 ML Syringe SC (05:28)
[2017-12-18 06:36] LABS: Bedside Glucose 132 mg/dL (70-110)
--- NOTE | 2017-12-18 07:24 | PCM.PN.HOSP ---
Subjective: Patient was seen and examined. He feels constipated, was given milk of magnesium as well as Senokot yesterday with no effect. Therapy is going well, swelling of his right knee has gone down considerably, denies any chest pain no dizziness or palpitations of fever or chills. Objective: Physical exam: General: Alert, Oriented x3, Cooperative, No apparent distress HEENT: Atraumatic, PERRLA, EOMI, Normocephalic Oral: Moist Mucosa Neck: Supple Lungs: Clear to auscultation, Normal air movement Cardiovascular: Regular rate, Regular Rhythm, Normal S1, Normal S2, No murmurs Abdomen: Bowel Sounds Present, Soft, Non Tender, Non-Distended, No Hepato-splenomegaly, Obese Extremities: No edema Skin: No rashes, No breakdown Musculoskeletal: No Tenderness to Palpation of Joints or Extremities Lymphatic: No Cervical, Supraclavicular, or Inguinal Adenopathy Neurological: Cranial nerves II-XII grossly intact, Neuro grossly intact Psych/Mental Status: Normal Affect, Appropriate Vitals/I&O's: Vital Signs Temp Pulse Resp BP Pulse Ox 98.1 F 100 16 138/74 H 96 12/17/17 20:40 12/17/17 20:40 12/17/17 20:40 12/17/17 20:40 12/17/17 20:40 Oxygen Delivery Method Room Air Weight: 113.2 kg Body Mass Index (BMI) 33.7 Finger Stick Blood Glucose 237 Intake and Output for Last 24 Hours 12/16/17 12/17/17 12/18/17 23:59 23:59 23:59 Intake Total 360 / 360 600 / 600 Balance 360 / 360 600 / 600 Laboratory Results 12/18/17 06:32: POC Glucose 132 H Current Medications Hydrocodone Bitart/Acetaminophen ([place] 5mg-325mg) 1 - 2 tablet PO Q4H PRN PRN PRN Reason: SEVERE PAIN (6-10/10) Last Admin: 12/18/17 05:28 Dose: 2 tablet Amlodipine Besylate (Norvasc) 10 mg PO DAILY [facility] Last Admin: 12/17/17 09:04 Dose: 10 mg Ascorbic Acid (Vitamin C) 500 mg PO BIDCM [facility] Last Admin: 12/17/17 17:39 Dose: 500 mg Aspirin (Aspirin, Baby) 81 mg PO DAILY@0800 [facility] Last Admin: 12/17/17 09:05 Dose: 81 mg Atorvastatin Calcium (Lipitor) 80 mg PO QHS [facility] Last Admin: 12/17/17 20:43 Dose: 80 mg Bisacodyl (Dulcolax) 10 mg RECTAL .PRN X 1 PRN PRN Reason: Constipation Citalopram Hydrobromide (Celexa) 40 mg PO DAILY [facility] Last Admin: 12/17/17 09:05 Dose: 40 mg Enoxaparin Sodium (Lovenox) 40 mg SC DAILY@0600 [facility] Last Admin: 12/18/17 05:28 Dose: 40 mg Fentanyl (Duragesic Patch) 50 mcg TRANSDERM. Q3D [facility] Last Admin: 12/16/17 17:49 Dose: 50 mcg Gabapentin (Neurontin) 300 mg PO QHS [facility] Last Admin: 12/17/17 20:44 Dose: 300 mg Hydrochlorothiazide (Hctz) 25 mg PO DAILY [facility] Last Admin: 12/17/17 09:05 Dose: 25 mg Magnesium Hydroxide (Milk Of Magnesia) 30 ml PO .PRN X 1 PRN PRN Reason: Constipation Last Admin: 12/17/17 20:43 Dose: 30 ml Megestrol Acetate (Megace) 40 mg PO 4X/DAY [facility] Last Admin: 12/17/17 20:44 Dose: 40 mg Nutritional Formula (Lactose Free) (Ensure Enlive) 120 ml PO 4X/DAY [facility] Last Admin: 12/17/17 20:44 Dose: 120 ml Ondansetron HCl (Zofran Odt) 4 mg PO Q6H PRN PRN PRN Reason: NAUSEA Last Admin: 12/17/17 06:59 Dose: 4 mg Polyethylene Glycol (Miralax) 17 gm PO DAILY PRN PRN PRN Reason: Constipation Senna/Docusate Sodium (Senokot-S, Zeenat-Colace) 2 tablet PO BID [facility] Last Admin: 12/17/17 20:44 Dose: 2 tablet Medical Necessity - Tobacco Use Smoking Status: Never smoker Tobacco Use: Non-smoker Assessment/Plan 57-year-old male with past medical history of CVA(2016), adjustment disorder with depression after CVA, hypertension, hyperlipidemia, degenerative disc disease(neck), borderline DM type 2, BPH, who is status post bilateral total knee replacement admitted on 12/14/17 for acute rehab. Patient had bilateral total knee replacement surgery done on 12/08/2017 at the [facility]. 1. Debility due to recent bilateral knee replacement, undergoing physical and occupational therapy with improvement. 2. s/p Bilateral knee replacement, pain is fairly controlled, on oxycodone, fentanyl patch, gabapentin, will continue with therapy 3. Constipation related to use of opiate medication, on senna depreciated, MiraLAX, encourage use of bisacodyl 4. Hypertension, controlled, continue amlodipine, HCTZ, would continue to monitor. 5. Hyperlipidemia, on statin 6. Osteoarthritis of the knees/neck 7. Anxiety/depression, on Celexa 8. History of CVA, not on aspirin, on statin, 9. DVT PPx - Lovenox SC Code Visit Inpatient E&M: 15257 Subs Hosp L2
[2017-12-18 07:49] VITALS: BP 160/90; PULSE 96; RESP 18; TEMP 36.4; O2SAT 95
[2017-12-18] MEDS: Megestrol 40 MG Tablet PO ×4 (07:51→20:47)
[2017-12-18] MEDS: Citalopram 40 MG TABLET PO (07:51)
[2017-12-18] MEDS: hydroCHLOROthiazide 25 MG Tablet PO (07:51)
[2017-12-18] MEDS: Aspirin 81 MG TAB.CHEW PO (07:51)
[2017-12-18] MEDS: Senna/Docusate Sodium 1 Tablet 2 TABLET PO ×2 (07:52→20:46)
[2017-12-18] MEDS: amLODIPine 5 MG Tablet 10 MG PO (07:52)
[2017-12-18] MEDS: Ascorbic Acid 500 MG Tablet PO ×2 (07:52→17:00)
[2017-12-18] MEDS: Polyethylene Glycol 3350 17 GM PACKET PO (08:18)
[2017-12-18 10:22] VITALS: BP 145/82; PULSE 100
[2017-12-18] MEDS: oxyCODONE 5 MG Tablet PO ×2 (13:05→23:26)
[2017-12-18] MEDS: Ondansetron ODT 4 MG Tablet PO ×2 (13:05→23:26)
[2017-12-18 20:25] VITALS: BP 150/78; PULSE 79; RESP 17; TEMP 36.8; O2SAT 96
[2017-12-18] MEDS: Gabapentin 300 MG Capsule PO (20:47)
[2017-12-18] MEDS: Atorvastatin Calcium 40 MG Tablet 80 MG PO (20:47)
[2017-12-19] MEDS: HYDROcodone Bitartrate/Apap 5/325 Tablet PO ×3 (03:10→18:02)
[2017-12-19] MEDS: Enoxaparin 40 MG/0.4 ML Syringe SC (05:44)
[2017-12-19 07:41] VITALS: BP 136/85; PULSE 101; RESP 17; TEMP 36.9; O2SAT 97
[2017-12-19] MEDS: Senna/Docusate Sodium 1 Tablet 2 TABLET PO ×2 (08:21→22:18)
[2017-12-19] MEDS: Aspirin 81 MG TAB.CHEW PO (08:21)
[2017-12-19] MEDS: Megestrol 40 MG Tablet PO ×4 (08:21→22:17)
[2017-12-19] MEDS: hydroCHLOROthiazide 25 MG Tablet PO (08:21)
[2017-12-19] MEDS: Ascorbic Acid 500 MG Tablet PO ×2 (08:21→17:00)
[2017-12-19] MEDS: amLODIPine 5 MG Tablet 10 MG PO (08:21)
[2017-12-19] MEDS: Citalopram 40 MG TABLET PO (08:24)
[2017-12-19] MEDS: oxyCODONE 5 MG Tablet PO (11:31)
--- NOTE | 2017-12-19 19:00 | NURSING ---
Duragesic patch changed, old patch unable locate after shower. Jenifer Javier aware d/t possibility of patch surfacing.
[2017-12-19 22:00] VITALS: BP 137/92; PULSE 100; RESP 16; TEMP 36.8; O2SAT 92
[2017-12-19] MEDS: Atorvastatin Calcium 40 MG Tablet 80 MG PO (22:18)
[2017-12-19] MEDS: Gabapentin 300 MG Capsule PO (22:18)
--- NOTE | 2017-12-20 02:09 | NURSING ---
Reviewed and agree with [employer] documentation.
[2017-12-20] MEDS: Enoxaparin 40 MG/0.4 ML Syringe SC (05:15)
[2017-12-20] MEDS: HYDROcodone Bitartrate/Apap 5/325 Tablet PO ×3 (07:12→19:49)
[2017-12-20] MEDS: amLODIPine 5 MG Tablet 10 MG PO (07:51)
[2017-12-20] MEDS: Aspirin 81 MG TAB.CHEW PO (07:51)
[2017-12-20] MEDS: hydroCHLOROthiazide 25 MG Tablet PO (07:51)
[2017-12-20] MEDS: Citalopram 40 MG TABLET PO (07:51)
[2017-12-20] MEDS: Ascorbic Acid 500 MG Tablet PO ×2 (07:51→17:08)
[2017-12-20] MEDS: Megestrol 40 MG Tablet PO ×4 (07:51→21:19)
[2017-12-20 07:52] VITALS: BP 127/91; PULSE 92; RESP 18; TEMP 36.8; O2SAT 95
--- NOTE | 2017-12-20 10:17 | PCM.PN.HOSP ---
Subjective: Patient is a 57-year-old gentleman with multiple comorbidities who underwent bilateral knee replacement by orthopedic surgery subsequently transferred to [facility] Vitals/I&O's: Vital Signs Temp Pulse Resp BP Pulse Ox 98.2 F 92 18 127/91 H 95 12/20/17 07:52 12/20/17 07:52 12/20/17 07:52 12/20/17 07:52 12/20/17 07:52 Oxygen Delivery Method Room Air Weight: 113.2 kg Body Mass Index (BMI) 33.7 Finger Stick Blood Glucose 237 Intake and Output for Last 24 Hours 12/18/17 12/19/17 12/20/17 23:59 23:59 23:59 Intake Total 760 / 760 320 / 320 240 / 240 Balance 760 / 760 320 / 320 240 / 240 General: Alert HEENT: Atraumatic Neck: Supple Lungs: Diminished Cardiovascular: Regular rate, Regular Rhythm Abdomen: Non-Distended Extremities: No clubbing Neurological: Neuro grossly intact Psych/Mental Status: Normal Affect Current Medications Hydrocodone Bitart/Acetaminophen ([place] 5mg-325mg) 1 tablet PO Q4H PRN PRN PRN Reason: SEVERE PAIN (6-06/22) Amlodipine Besylate (Norvasc) 10 mg PO DAILY [facility] Last Admin: 12/20/17 07:51 Dose: 10 mg Ascorbic Acid (Vitamin C) 500 mg PO BIDCM [facility] Last Admin: 12/20/17 07:51 Dose: 500 mg Aspirin (Aspirin, Baby) 81 mg PO DAILY@0800 [facility] Last Admin: 12/20/17 07:51 Dose: 81 mg Atorvastatin Calcium (Lipitor) 80 mg PO QHS [facility] Last Admin: 12/19/17 22:18 Dose: 80 mg Bisacodyl (Dulcolax) 10 mg RECTAL .PRN X 1 PRN PRN Reason: Constipation Citalopram Hydrobromide (Celexa) 40 mg PO DAILY [facility] Last Admin: 12/20/17 07:51 Dose: 40 mg Enoxaparin Sodium (Lovenox) 40 mg SC DAILY@0600 [facility] Last Admin: 12/20/17 05:15 Dose: 40 mg Fentanyl (Duragesic Patch) 50 mcg TRANSDERM. Q3D [facility] Last Admin: 12/19/17 14:56 Dose: 50 mcg Gabapentin (Neurontin) 300 mg PO QHS [facility] Last Admin: 12/19/17 22:18 Dose: 300 mg Hydrochlorothiazide (Hctz) 25 mg PO DAILY [facility] Last Admin: 12/20/17 07:51 Dose: 25 mg Magnesium Hydroxide (Milk Of Magnesia) 30 ml PO .PRN X 1 PRN PRN Reason: Constipation Last Admin: 12/17/17 20:43 Dose: 30 ml Megestrol Acetate (Megace) 40 mg PO 4X/DAY [facility] Last Admin: 12/20/17 07:51 Dose: 40 mg Nutritional Formula (Lactose Free) (Ensure Enlive) 120 ml PO 4X/DAY [facility] Last Admin: 12/20/17 07:51 Dose: 120 ml Ondansetron HCl (Zofran Odt) 4 mg PO Q6H PRN PRN PRN Reason: NAUSEA Last Admin: 12/18/17 23:26 Dose: 4 mg Oxycodone HCl (Oxyir) 5 mg PO Q6H PRN PRN PRN Reason: Break through Pain (>4/10) Last Admin: 12/19/17 11:31 Dose: 5 mg Polyethylene Glycol (Miralax) 17 gm PO DAILY PRN PRN PRN Reason: Constipation Last Admin: 12/18/17 08:18 Dose: 17 gm Senna/Docusate Sodium (Senokot-S, Zeenat-Colace) 2 tablet PO BID [facility] Last Admin: 12/20/17 07:51 Dose: Not Given Medical Necessity - Tobacco Use Smoking Status: Never smoker Tobacco Use: Non-smoker Assessment/Plan Patient is a 57-year-old gentleman with multiple comorbidities who underwent bilateral knee replacement by orthopedic surgery subsequently transferred to [facility] 1. Status post bilateral total knee arthroplasty on 12/08/2017 at [facility] transferred to the inpatient rehab unit where patient is currently undergoing therapy 2. Hypertension-blood pressure controlled, home medications continued with dose adjustment as needed 3. Dyslipidemia-patient is on statin therapy, continued at home dose 4. Generalized osteoarthritis 5. History of previous CVA 6. Depression with anxiety 7. DVT prophylaxis SC Lovenox 8. Obesity with BMI of 32.0 weight loss advised 9. Constipation treated symptomatically Code Visit Inpatient E&M: 95383 Subs Hosp L2
--- NOTE | 2017-12-20 10:31 | CASEMGMT ---
Team meeting held. Patient present as well as patient sister, Kimi. No discharge date set at this time. Patient continues to be pending insurance approval. Patient plans to discharge home with family at time of discharge. Kimi requesting a call when further information is obtained from insurance. Kimi . Patient to continue with further care and treatment on the Inpatient Rehab Unit. Support given. Will continue to follow. Divya NICKERSON, MARKET GARDEN WORKER
--- NOTE | 2017-12-20 10:42 | PCM.PN.NEU ---
Subjective: Staffed in team meeting. Family was at bedside. Questions answered. With Physical therapy, he is able to stand occasionally at standby assist if the height of the chair is greater than 18 inches if lower requires assistance to stand. He is able to walk about 250feet with walker at standby assistance. Occasionally he requires a hand on his back for safety if he is in pain. He is able to walk up and down about 7 steps using two hand rails. His ROM in his right knee is 89 degrees flexion, his left knee is 71 degrees flexion. With Occupational therapy he is able to do all his own personal care, he can put on his socks and shoes, he does require a hand for balance occasionally. With nursing he still is in pain and we continue to make adjustments as needed. The plan is to re-team him on Wednesday or next week. - Physical Exam General: Alert, Oriented x3, Cooperative HEENT: Atraumatic, PERRLA, EOMI, Normocephalic Neck: Supple, No JVD, Negative Carotid Bruits Lungs: Clear to auscultation, Normal air movement Cardiovascular: Regular rate, No murmurs Abdomen: Bowel Sounds Present, Soft, Non Tender Extremities: No edema, Capillary Refill Less than 3 Seconds Skin: No rashes, No breakdown Musculoskeletal: No Tenderness to Palpation of Joints or Extremities Neurological: Cranial nerves II-XII grossly intact Psych/Mental Status: Normal Affect, Appropriate Vital Signs Temp Pulse Resp BP Pulse Ox 98.2 F 92 18 127/91 H 95 12/20/17 07:52 12/20/17 07:52 12/20/17 07:52 12/20/17 07:52 12/20/17 07:52 Oxygen Delivery Method Room Air Weight: 113.2 kg Body Mass Index (BMI) 33.7 Finger Stick Blood Glucose 237 Intake and Output for Last 24 Hours 12/18/17 12/19/17 12/20/17 23:59 23:59 23:59 Intake Total 760 / 760 320 / 320 240 / 240 Balance 760 / 760 320 / 320 240 / 240 Active Medications Hydrocodone Bitart/Acetaminophen ([place] 5mg-325mg) 1 tablet PO Q4H PRN PRN PRN Reason: SEVERE PAIN (6-10/10) Amlodipine Besylate (Norvasc) 10 mg PO DAILY [facility] Last Admin: 12/20/17 07:51 Dose: 10 mg Ascorbic Acid (Vitamin C) 500 mg PO BIDCM [facility] Last Admin: 12/20/17 07:51 Dose: 500 mg Aspirin (Aspirin, Baby) 81 mg PO DAILY@0800 [facility] Last Admin: 12/20/17 07:51 Dose: 81 mg Atorvastatin Calcium (Lipitor) 80 mg PO QHS [facility] Last Admin: 12/19/17 22:18 Dose: 80 mg Bisacodyl (Dulcolax) 10 mg RECTAL .PRN X 1 PRN PRN Reason: Constipation Citalopram Hydrobromide (Celexa) 40 mg PO DAILY [facility] Last Admin: 12/20/17 07:51 Dose: 40 mg Enoxaparin Sodium (Lovenox) 40 mg SC DAILY@0600 [facility] Last Admin: 12/20/17 05:15 Dose: 40 mg Fentanyl (Duragesic Patch) 50 mcg TRANSDERM. Q3D [facility] Last Admin: 12/19/17 14:56 Dose: 50 mcg Gabapentin (Neurontin) 300 mg PO QHS [facility] Last Admin: 12/19/17 22:18 Dose: 300 mg Hydrochlorothiazide (Hctz) 25 mg PO DAILY [facility] Last Admin: 12/20/17 07:51 Dose: 25 mg Magnesium Hydroxide (Milk Of Magnesia) 30 ml PO .PRN X 1 PRN PRN Reason: Constipation Last Admin: 12/17/17 20:43 Dose: 30 ml Megestrol Acetate (Megace) 40 mg PO 4X/DAY [facility] Last Admin: 12/20/17 07:51 Dose: 40 mg Nutritional Formula (Lactose Free) (Ensure Enlive) 120 ml PO 4X/DAY [facility] Last Admin: 12/20/17 07:51 Dose: 120 ml Ondansetron HCl (Zofran Odt) 4 mg PO Q6H PRN PRN PRN Reason: NAUSEA Last Admin: 12/18/17 23:26 Dose: 4 mg Oxycodone HCl (Oxyir) 5 mg PO Q6H PRN PRN PRN Reason: Break through Pain (>4/10) Last Admin: 12/19/17 11:31 Dose: 5 mg Polyethylene Glycol (Miralax) 17 gm PO DAILY PRN PRN PRN Reason: Constipation Last Admin: 12/18/17 08:18 Dose: 17 gm Senna/Docusate Sodium (Senokot-S, Zeenat-Colace) 2 tablet PO BID [facility] Last Admin: 12/20/17 07:51 Dose: Not Given Medical Necessity - Tobacco Use Smoking Status: Never smoker Tobacco Use: Non-smoker Assessment/Plan Impression: Debility status post bilateral knee replacement surgery complicated by history of hypertension, hyperlipidemia, and controlled depression. Goal of therapy is gnosticism of prior level of functional independence. Plan: - Physical therapy for gait and balance - Occupational Therapy for ADLs - As needed analgesics - Bowel protocol - Continue Celexa, depression appears to repeat a remote issue at this point - Norvasc and hydrochlorothiazide for hypertension, controlled - Lipitor for hyperlipidemia - DVT prophylaxis: Lovenox, SCD, and Mino hoses - Increased fentanyl patch to 37 mcq - Poor appetite -> added Megace - Stroke prevention: ASA 81mg, and Statin - 30 day event monitor on discharge - Incision sites are C/D/I no warmth or redness noted along the incision - Re-team on Wednesday of next week
--- NOTE | 2017-12-20 10:45 | PN.NEURO_ITS ---
Subjective: Staffed in team meeting. Family was at bedside. Questions answered. With Physical therapy, he is able to stand occasionally at standby assist if the height of the chair is greater than 18 inches if lower requires assistance to stand. He is able to walk about 250feet with walker at standby assistance. Occasionally he requires a hand on his back for safety if he is in pain. He is able to walk up and down about 7 steps using two hand rails. His ROM in his right knee is 89 degrees flexion, his left knee is 71 degrees flexion. With Occupational therapy he is able to do all his own personal care, he can put on his socks and shoes, he does require a hand for balance occasionally. With nursing he still is in pain and we continue to make adjustments as needed. The plan is to re-team him on Wednesday or next week. - Physical Exam General: Alert, Oriented x3, Cooperative HEENT: Atraumatic, PERRLA, EOMI, Normocephalic Neck: Supple, No JVD, Negative Carotid Bruits Lungs: Clear to auscultation, Normal air movement Cardiovascular: Regular rate, No murmurs Abdomen: Bowel Sounds Present, Soft, Non Tender Extremities: No edema, Capillary Refill Less than 3 Seconds Skin: No rashes, No breakdown Musculoskeletal: No Tenderness to Palpation of Joints or Extremities Neurological: Cranial nerves II-XII grossly intact Psych/Mental Status: Normal Affect, Appropriate Vital Signs Temp Pulse Resp BP Pulse Ox 98.2 F 92 18 127/91 H 95 12/20/17 07:52 12/20/17 07:52 12/20/17 07:52 12/20/17 07:52 12/20/17 07:52 Oxygen Delivery Method Room Air Weight: 113.2 kg Body Mass Index (BMI) 33.7 Finger Stick Blood Glucose 237 Intake and Output for Last 24 Hours 12/18/17 12/19/17 12/20/17 23:59 23:59 23:59 Intake Total 760 / 760 320 / 320 240 / 240 Balance 760 / 760 320 / 320 240 / 240 Active Medications Hydrocodone Bitart/Acetaminophen ([place] 5mg-325mg) 1 tablet PO Q4H PRN PRN PRN Reason: SEVERE PAIN (6-10/10) Amlodipine Besylate (Norvasc) 10 mg PO DAILY [facility] Last Admin: 12/20/17 07:51 Dose: 10 mg Ascorbic Acid (Vitamin C) 500 mg PO BIDCM [facility] Last Admin: 12/20/17 07:51 Dose: 500 mg Aspirin (Aspirin, Baby) 81 mg PO DAILY@0800 [facility] Last Admin: 12/20/17 07:51 Dose: 81 mg Atorvastatin Calcium (Lipitor) 80 mg PO QHS [facility] Last Admin: 12/19/17 22:18 Dose: 80 mg Bisacodyl (Dulcolax) 10 mg RECTAL .PRN X 1 PRN PRN Reason: Constipation Citalopram Hydrobromide (Celexa) 40 mg PO DAILY [facility] Last Admin: 12/20/17 07:51 Dose: 40 mg Enoxaparin Sodium (Lovenox) 40 mg SC DAILY@0600 [facility] Last Admin: 12/20/17 05:15 Dose: 40 mg Fentanyl (Duragesic Patch) 50 mcg TRANSDERM. Q3D [facility] Last Admin: 12/19/17 14:56 Dose: 50 mcg Gabapentin (Neurontin) 300 mg PO QHS [facility] Last Admin: 12/19/17 22:18 Dose: 300 mg Hydrochlorothiazide (Hctz) 25 mg PO DAILY [facility] Last Admin: 12/20/17 07:51 Dose: 25 mg Magnesium Hydroxide (Milk Of Magnesia) 30 ml PO .PRN X 1 PRN PRN Reason: Constipation Last Admin: 12/17/17 20:43 Dose: 30 ml Megestrol Acetate (Megace) 40 mg PO 4X/DAY [facility] Last Admin: 12/20/17 07:51 Dose: 40 mg Nutritional Formula (Lactose Free) (Ensure Enlive) 120 ml PO 4X/DAY [facility] Last Admin: 12/20/17 07:51 Dose: 120 ml Ondansetron HCl (Zofran Odt) 4 mg PO Q6H PRN PRN PRN Reason: NAUSEA Last Admin: 12/18/17 23:26 Dose: 4 mg Oxycodone HCl (Oxyir) 5 mg PO Q6H PRN PRN PRN Reason: Break through Pain (>4/10) Last Admin: 12/19/17 11:31 Dose: 5 mg Polyethylene Glycol (Miralax) 17 gm PO DAILY PRN PRN PRN Reason: Constipation Last Admin: 12/18/17 08:18 Dose: 17 gm Senna/Docusate Sodium (Senokot-S, Zeenat-Colace) 2 tablet PO BID [facility] Last Admin: 12/20/17 07:51 Dose: Not Given Medical Necessity - Tobacco Use Smoking Status: Never smoker Tobacco Use: Non-smoker Assessment/Plan Impression: Debility status post bilateral knee replacement surgery complicated by history of hypertension, hyperlipidemia, and controlled depression. Goal of therapy is lutheran of prior level of functional independence. Plan: - Physical therapy for gait and balance - Occupational Therapy for ADLs - As needed analgesics - Bowel protocol - Continue Celexa, depression appears to repeat a remote issue at this point - Norvasc and hydrochlorothiazide for hypertension, controlled - Lipitor for hyperlipidemia - DVT prophylaxis: Lovenox, SCD, and Mino hoses - Increased fentanyl patch to 37 mcq - Poor appetite -> added Megace - Stroke prevention: ASA 81mg, and Statin - 30 day event monitor on discharge - Incision sites are C/D/I no warmth or redness noted along the incision - Re-team on Wednesday of next week
[2017-12-20] MEDS: oxyCODONE 5 MG Tablet PO ×2 (13:27→21:17)
--- NOTE | 2017-12-20 14:14 | CASEMGMT ---
Insurance Have not heard back from insurance. Telephone call to Was able to leave voicemail for nurse reviewer on status of case. Will continue to follow. Auth#[id number] Divya NICKERSON, CLINICAL TRAINING SPECIALIST
--- NOTE | 2017-12-20 15:27 | CASEMGMT ---
Insurance Telephone call from Laura, nurse reviewer, gave verbal update. Laura to get back to this social science teacher on continued stay approval by tomorrow. Auth#[id number] Divya NICKERSON, BUSINESS INTEGRATION ANALYST
--- NOTE | 2017-12-20 16:28 | CHAPLAIN ---
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
[2017-12-20 19:47] VITALS: BP 120/78; PULSE 105; RESP 18; TEMP 36.6; O2SAT 95
[2017-12-20] MEDS: Gabapentin 300 MG Capsule PO (21:18)
[2017-12-20] MEDS: Atorvastatin Calcium 40 MG Tablet 80 MG PO (21:18)
[2017-12-20] MEDS: Senna/Docusate Sodium 1 Tablet 2 TABLET PO (21:19)
[2017-12-21] MEDS: HYDROcodone Bitartrate/Apap 5/325 Tablet PO ×5 (01:53→23:03)
[2017-12-21] MEDS: oxyCODONE 5 MG Tablet PO (03:47)
--- NOTE | 2017-12-21 04:03 | NURSING ---
pt awakened by knee pain and Oxyir 5m given for breakthrough pain of 8/10 reported pain. Pt repositioned in bed and polar care refilled with ice.
[2017-12-21] MEDS: Enoxaparin 40 MG/0.4 ML Syringe SC (06:14)
[2017-12-21 07:32] VITALS: BP 144/86; PULSE 110; RESP 16; TEMP 36.3; O2SAT 98
[2017-12-21] MEDS: Ondansetron ODT 4 MG Tablet PO (08:08)
--- NOTE | 2017-12-21 08:50 | NURSING ---
Therapy reported patient did all of his therapy today but max rest breaks given and OT did all bed exercises.
--- NOTE | 2017-12-21 08:56 | CASEMGMT ---
Insurance Continued stay approved with next update due on 12/27/17. Auth#[id number] Divya NICKERSON, PROJECT MANAGER PROCESS DEVELOPMENT
[2017-12-21] MEDS: amLODIPine 5 MG Tablet 10 MG PO (09:30)
[2017-12-21] MEDS: Ascorbic Acid 500 MG Tablet PO ×2 (09:30→18:44)
[2017-12-21] MEDS: Aspirin 81 MG TAB.CHEW PO (09:30)
[2017-12-21] MEDS: Citalopram 40 MG TABLET PO (09:30)
[2017-12-21] MEDS: Megestrol 40 MG Tablet PO ×3 (09:30→22:29)
[2017-12-21] MEDS: hydroCHLOROthiazide 25 MG Tablet PO (09:30)
[2017-12-21] MEDS: Senna/Docusate Sodium 1 Tablet 2 TABLET PO ×2 (09:30→22:29)
--- NOTE | 2017-12-21 10:45 | NURSING ---
VS taken and wnl. Patient up with therapy in [place] and could only take a few steps and said he was not feelling well and had been nauseated this morning and prn zofran given. Patient sat down with therapy assist and stated, I need to go downstairs to see my mother. Reoriented and patient quickly oriented and was Alert and oriented x3. Patient also reported he felt a brief moment of dizziness. Patient requested to lay down and done so. Will monitor.
[2017-12-21 10:46] VITALS: BP 133/81; PULSE 96; RESP 16; TEMP 36.5; O2SAT 98
--- NOTE | 2017-12-21 11:20 | NURSING ---
This nurse called to [facility] and spoke to air quality instrument specialist and requested Jazmin BUSCH to call back regarding possible pain med changes due to pain meds changed yesterday and may be affecting his orientation today.
--- NOTE | 2017-12-21 13:00 | NURSING ---
Jazmin gave new orders to dc oxyir and continue other pain meds per order and this nurse has not given any pain meds this shift to patient and patient has been resting comfortably and has not requested pain meds. No distress noted.
--- NOTE | 2017-12-21 15:15 | NURSING ---
Addendum entered by Chetna Whitney 12/22/17 08:51: Patient also c/o dizzy feeling when up with PT and once sat down it ceased. Original Note: Dr. Oropeza ordered labs. Patient has been alert and oriented all afternoon and fluids encouraged but still reports he cannot do all the therapy today due to not feeling well but no distinct complaint made.
[2017-12-21 17:13] LABS: Hematocrit 32.7 % (40-54); Hemoglobin 10.8 g/dl (13.0-16.5); Mean Corpuscular Hgb 28.1 pg (27.0-32.0); Mean Corpuscular Volume 85.2 fL (80-94); Mean Platelet Vol. 8.4 fl (6.2-12.0); RBC Distribution Width CV 13.6 % (11.6-14.6); RBC Distribution Width SD 41.4 fl (35.1-43.9); Red Blood Count 3.84 M/mm3 (4.6-6.2); White Blood Count 15.3 K/mm3 (4.4-11.0)
[2017-12-21 17:21] LABS: Anion Gap 8 (5-15); BUN 25 mg/dL (7-18); BUN/Creat Ratio 34.2 RATIO (10-20); Calcium,Total 8.6 mg/dL (8.5-10.1); Chloride 98 mmol/L (98-107); Creatinine, Serum 0.73 mg/dL (0.70-1.30); EST Glomerular Filtration Rate 118 mL/min (>60); Est Glom Filt Rate - Afr Amer 142 mL/min (>60); Estimated Creatinine Clearance 131.37 ml/min; Glucose 138 mg/dL (74-106); Potassium 4.4 mmol/L (3.5-5.1); Sodium Level 131 mmol/L (136-145)
[2017-12-21 17:45] LABS: Platelet Count 832 K/mm3 (150-450); Scan Indicated on CBC? Y/N YES- FLAGS NOTED
[2017-12-21 17:46] LABS: Differential Comment SCANNED
--- NOTE | 2017-12-21 17:50 | NURSING ---
Dr. Oropeza paged per movie operator and movie operator made nurse aware that no longer here today due to abnormal lab results reported.
--- NOTE | 2017-12-21 19:00 | NURSING ---
Next shift nurse will report the labs today on patient to saturation diver for [facility].
[2017-12-21 19:45] VITALS: BP 127/65; PULSE 99; RESP 20; TEMP 36.8; O2SAT 95
--- NOTE | 2017-12-21 20:17 | NURSING ---
PAGE PLACED TO NEURO ASSISTANT COUNTY ENGINEER TO INFORM OF LAB RESULTS.
--- NOTE | 2017-12-21 21:10 | NURSING ---
DR CASTRO PHONES INTO UNIT. INFORMED OF PT'S CRITICAL LAB VALUE AND OTHER LAB VALUES THAT WERE DONE TODAY PT HAD SOME FATIGUE, MILD CONFUSION AND DID NOT COMPLETE ALL OF HIS THERAPY TODAY. ORDERS GIVEN.
--- NOTE | 2017-12-21 21:12 | NURSING ---
PAGE PLACED AT 1944, 2009, 2034 TO NEURO ANSWERING SERVICE FOR [facility]. AT 2039 NEURO ANSWERING SERVICE CALLS INTO UNIT AND STATES DR CASTRO WILL BE CALLING ME BACK INSTEAD OF DR MUNSON.
[2017-12-21] MEDS: Atorvastatin Calcium 40 MG Tablet 80 MG PO (22:29)
[2017-12-21] MEDS: Gabapentin 300 MG Capsule PO (22:29)
[2017-12-22] MEDS: HYDROcodone Bitartrate/Apap 5/325 Tablet PO ×5 (03:16→20:41)
[2017-12-22] MEDS: Enoxaparin 40 MG/0.4 ML Syringe SC (05:30)
[2017-12-22 07:10] LABS: Erythrocyte Sedimentation Rate 22 mm/hr (0-20)
[2017-12-22] MEDS: Aspirin 81 MG TAB.CHEW PO (07:30)
[2017-12-22] MEDS: Citalopram 40 MG TABLET PO (07:30)
[2017-12-22] MEDS: Ascorbic Acid 500 MG Tablet PO ×2 (07:30→16:20)
[2017-12-22 07:45] VITALS: BP 137/82; PULSE 125; RESP 19; TEMP 36.8; O2SAT 100
[2017-12-22 08:22] VITALS: BP 135/78; PULSE 127
--- NOTE | 2017-12-22 09:05 | PCM.PN.HOSP ---
Subjective: Patient seen complains of not feeling well. Pain in the knee is quite significant. Has elevated platelet counts and infectious workup undertaken. Objective: General: Alert HEENT: Atraumatic Neck: Supple Lungs: Diminished Cardiovascular: Regular rate, Regular Rhythm Abdomen: Non-Distended Extremities: No clubbing Neurological: Neuro grossly intact Psych/Mental Status: Normal Affect Vitals/I&O's: Vital Signs Temp Pulse Resp BP Pulse Ox 98.3 F 127 H 19 H 135/78 H 100 12/22/17 07:45 12/22/17 08:22 12/22/17 07:45 12/22/17 08:22 12/22/17 07:45 Oxygen Delivery Method Room Air Weight: 108.5 kg Body Mass Index (BMI) 33.7 Finger Stick Blood Glucose 237 Intake and Output for Last 24 Hours 12/20/17 12/21/17 12/22/17 23:59 23:59 23:59 Intake Total 760 / 760 700 / 700 120 / 120 Balance 760 / 760 700 / 700 120 / 120 Laboratory Results 12/21/17 17:02: WBC 15.3 H, RBC 3.84 L, Hgb 10.8 L, Hct 32.7 L, MCV 85.2, MCH 28.1, MCHC 33.0, RDW 13.6, RDW Differential 41.4, Plt Count 832 H*, MPV 8.4, Differential Comment SCANNED, Diff Path Review January12/21/17 17:02: Sodium 131 L, Potassium 4.4, Chloride 98, Carbon Dioxide 25.0, Anion Gap 8, BUN 25 H, Creatinine 0.73, Estim Creat Clear Calc 131.37, Est GFR (MDRD) Af Amer 142, Est GFR (MDRD) Non-Af 118, BUN/Creatinine Ratio 34.2 H, Glucose 138 H, Calcium 8.6 12/22/17 05:40: ESR 22 H Current Medications Hydrocodone Bitart/Acetaminophen ([place] 5mg-325mg) 1 tablet PO Q4H PRN PRN PRN Reason: SEVERE PAIN (-06/22) Last Admin: 12/22/17 07:30 Dose: 1 tablet Amlodipine Besylate (Norvasc) 10 mg PO DAILY [facility] Last Admin: 12/21/17 09:30 Dose: 10 mg Ascorbic Acid (Vitamin C) 500 mg PO BIDCM [facility] Last Admin: 12/22/17 07:30 Dose: 500 mg Aspirin (Aspirin, Baby) 81 mg PO DAILY@0800 [facility] Last Admin: 12/22/17 07:30 Dose: 81 mg Atorvastatin Calcium (Lipitor) 80 mg PO QHS [facility] Last Admin: 12/21/17 22:29 Dose: 80 mg Bisacodyl (Dulcolax) 10 mg RECTAL .PRN X 1 PRN PRN Reason: Constipation Citalopram Hydrobromide (Celexa) 40 mg PO DAILY [facility] Last Admin: 12/22/17 07:30 Dose: 40 mg Enoxaparin Sodium (Lovenox) 40 mg SC DAILY@0600 [facility] Last Admin: 12/22/17 05:30 Dose: 40 mg Fentanyl (Duragesic Patch) 50 mcg TRANSDERM. Q3D [facility] Last Admin: 12/19/17 14:56 Dose: 50 mcg Gabapentin (Neurontin) 300 mg PO QHS [facility] Last Admin: 12/21/17 22:29 Dose: 300 mg Hydrochlorothiazide (Hctz) 25 mg PO DAILY [facility] Last Admin: 12/21/17 09:30 Dose: 25 mg Magnesium Hydroxide (Milk Of Magnesia) 30 ml PO .PRN X 1 PRN PRN Reason: Constipation Last Admin: 12/17/17 20:43 Dose: 30 ml Megestrol Acetate (Megace) 40 mg PO 4X/DAY [facility] Last Admin: 12/21/17 22:29 Dose: 40 mg Nutritional Formula (Lactose Free) (Ensure Enlive) 120 ml PO 4X/DAY [facility] Last Admin: 12/21/17 22:29 Dose: 120 ml Ondansetron HCl (Zofran Odt) 4 mg PO Q6H PRN PRN PRN Reason: NAUSEA Last Admin: 12/21/17 08:08 Dose: 4 mg Polyethylene Glycol (Miralax) 17 gm PO DAILY PRN PRN PRN Reason: Constipation Last Admin: 12/18/17 08:18 Dose: 17 gm Senna/Docusate Sodium (Senokot-S, Zeenat-Colace) 2 tablet PO BID [facility] Last Admin: 12/21/17 22:29 Dose: 2 tablet Medical Necessity - Tobacco Use Smoking Status: Never smoker Tobacco Use: Non-smoker Assessment/Plan Patient is a 57-year-old gentleman with multiple comorbidities who underwent bilateral knee replacement by orthopedic surgery subsequently transferred to [facility] 1. Status post bilateral total knee arthroplasty on 12/08/2017 at [facility] Leticia transferred to the inpatient rehab unit where patient is currently undergoing therapy 2. Hypertension-blood pressure controlled, home medications continued with dose adjustment as needed 3. Dyslipidemia-patient is on statin therapy, continued at home dose 4. Generalized osteoarthritis 5. History of previous CVA 6. Depression with anxiety 7. DVT prophylaxis [place] Lovenox 8. Obesity with BMI of 32.0 weight loss advised 9. Constipation treated symptomatically 10. Thrombocytosis possibly reactive did order chest-x-ray as well as urinalysis to rule out infectious etiology Code Visit Inpatient E&M: 70980 Subs Hosp L2
[2017-12-22 09:07] LABS: Pathologist Review Reviewed
--- NOTE | 2017-12-22 09:30 | NURSING ---
Dr. Oropeza and Jazmin CDL SERVICE TECHNICIAN assessed patient this morning as he was sitting up in chair post therapy session. Labs reviewed. Patient denies cp, nausea, sob, dizziness. Patient had to sit down after taking a few steps with therapy and therapy reported he looked like he was going to pass out. Patient denied feeling any different but stated he was sweaty and he had a pain in his knee and that is why he sat quick. Patient's skin pale and warm, no sweat observed by this nurse.
--- NOTE | 2017-12-22 09:40 | RAD_ITS ---
STUDY: X-RAY CHEST REASON FOR EXAM: Male, 57 years old. Shortness of breath/dyspnea. TECHNIQUE: Single AP portable view of the chest. COMPARISON: Comparison is made with prior study dated July 05, 2016. FINDINGS: The lungs are clear and expanded. Scattered calcified granulomas. There is no demonstrated pleural abnormality. Normal size heart. Normal mediastinum and dain. Normal visualized pulmonary arteries. Normal visualized aortic arch and descending thoracic aorta. There are diffuse degenerative changes of the visualized thoracic spine. There is degenerative osteoarthritis of the bilateral shoulders. There is evidence of prior fusion of the lower cervical vertebrae. There is no demonstrated abnormality of the visualized soft tissue structures of the upper abdomen. RAD/Chest 1 View (Portable) IMPRESSION: Stable examination. No acute abnormality is seen. Electronically Signed: Simón Ro MD at 13:36 EDT Tel [phone], Service support ,
[2017-12-22] MEDS: amLODIPine 5 MG Tablet 10 MG PO (11:08)
[2017-12-22] MEDS: Senna/Docusate Sodium 1 Tablet 2 TABLET PO ×2 (11:08→20:41)
[2017-12-22] MEDS: Megestrol 40 MG Tablet PO ×2 (11:08→20:42)
[2017-12-22] MEDS: hydroCHLOROthiazide 25 MG Tablet PO (11:08)
[2017-12-22] MEDS: Polyethylene Glycol 3350 17 GM PACKET PO (11:38)
[2017-12-22 12:28] LABS: Red Blood Cells-Urine 0 SEEN /hpf (0-5); Squamous Epithelial Cells - UA 0 SEEN /hpf (0-5)
[2017-12-22 12:37] LABS: Color, Urine Yellow (Yellow); Glucose, Dipstick Normal (Normal); Ketone-Dipstick Negative (Negative); Leukocyte Esterase-Dipstick 25 /ul (Negative); Nitrite-Dipstick Negative (Negative); Occult Blood-Urine Negative /ul (Negative); Protein-Dipstick 15 mg/dl (Negative); Urine Bilirubin Dipstick Negative (Negative); Urine Clarity Sl. Cloudy (Clear); Urine Urobilinogen 1 mg/dl (Normal)
[2017-12-22 12:52] LABS: Bacteria RARE /hpf (None Seen); Hyaline Cast 0-5 SEEN /lpf (0-5); White Blood Cells 0-5 SEEN /hpf (0-5)
[2017-12-22 12:53] LABS: Mucous, Urine 1+ /hpf (<or=2+)
[2017-12-22 13:22] VITALS: BP 124/81; BP 132/74; BP 93/76; PULSE 107; PULSE 120; PULSE 70
--- NOTE | 2017-12-22 13:59 | PCM.PN.NEU ---
Subjective: Patient seen and examined. Complaining of pain in his knees during therapy, WBC count is climbing, spoke with the hospitalist, he will order a CXR, UA and culture. Patient denies fevers, chills, or calf pain. Does have some SOB occasionally, will order Orthostatic BPs. His CXR was negative, UA had a few Leukocyte. He does have Orthostatic Hypotension, we D/Cd his HCTZ, Hold his Norvasc if his SBP is < 110, will continue to monitor his BP. - Physical Exam General: Alert, Oriented x3, Cooperative HEENT: Atraumatic, PERRLA, EOMI, Normocephalic Neck: Supple, No JVD, Negative Carotid Bruits Lungs: Clear to auscultation, Normal air movement Cardiovascular: Regular rate, No murmurs Abdomen: Bowel Sounds Present, Soft, Non Tender Extremities: No edema, Capillary Refill Less than 3 Seconds Skin: No rashes, No breakdown Musculoskeletal: No Tenderness to Palpation of Joints or Extremities Neurological: Cranial nerves II-XII grossly intact Psych/Mental Status: Normal Affect, Appropriate, Alert and oriented to time, place, person, mood and affect Vital Signs Temp Pulse Resp BP Pulse Ox 98.3 F 107 H 19 H 132/74 H 100 12/22/17 07:45 12/22/17 13:22 12/22/17 07:45 12/22/17 13:22 12/22/17 07:45 Oxygen Delivery Method Room Air Weight: 108.5 kg Body Mass Index (BMI) 33.7 Finger Stick Blood Glucose 237 Orthostatic Vital Signs Start: 12/22/17 13:22 Freq: q24h Status: Active Protocol: Activity Type Activity Date Activity User E-Sign Co-Sign Detail Recorded Client Recorded Date Recorded By Document 12/22/17 13:22 BL [id number] 12/22/17 13:37 BL 12/22/17 13:22 Orthostatic Vitals Standing -Blood Pressure (90/60-120/80) 93/76 -Extremity Use Right Arm -Pulse Rate (60-100) 70 Sitting -Blood Pressure (90/60-120/80) 124/81 H -Extremity Use Right Arm -Pulse Rate (60-100) 120 H Lying -Blood Pressure (90/60-120/80) 132/74 H -Extremity Use Right Arm -Pulse Rate (60-100) 107 H Intake and Output for Last 24 Hours 12/20/17 12/21/17 12/22/17 23:59 23:59 23:59 Intake Total 760 / 760 700 / 700 120 / 120 Balance 760 / 760 700 / 700 120 / 120 Laboratory Tests Past 24 Hrs 12/21/17 12/21/17 12/22/17 17:02 17:02 05:40 WBC 15.3 H RBC 3.84 L Hgb 10.8 L Hct 32.7 L MCV 85.2 MCH 28.1 MCHC 33.0 RDW 13.6 RDW Differential 41.4 Plt Count 832 H* MPV 8.4 Differential Comment SCANNED Diff Path Review Reviewed ESR 22 H Sodium 131 L Potassium 4.4 Chloride 98 Carbon Dioxide 25.0 Anion Gap 8 BUN 25 H Creatinine 0.73 Estim Creat Clear Calc 131.37 Est GFR (MDRD) Af Amer 142 Est GFR (MDRD) Non-Af 118 BUN/Creatinine Ratio 34.2 H Glucose 138 H Calcium 8.6 Urine Color Urine Clarity Urine pH Ur Specific [place] Urine Protein Urine Glucose (UA) Urine Ketones Urine Occult Blood Urine Nitrite Urine Bilirubin Urine Urobilinogen Ur Leukocyte Esterase Urine RBC Urine WBC Ur Squamous Epith Cells Urine Bacteria Hyaline Casts Urine Mucus 12/22/17 12:00 WBC RBC Hgb Hct MCV MCH MCHC RDW RDW Differential Plt Count MPV Differential Comment Diff Path Review ESR Sodium Potassium Chloride Carbon Dioxide Anion Gap BUN Creatinine Estim Creat Clear Calc Est GFR (MDRD) Af Amer Est GFR (MDRD) Non-Af BUN/Creatinine Ratio Glucose Calcium Urine Color Yellow Urine Clarity Sl. Cloudy Urine pH 6.0 Ur Specific [place] 1.020 Urine Protein 15 H Urine Glucose (UA) Normal Urine Ketones Negative Urine Occult Blood Negative Urine Nitrite Negative Urine Bilirubin Negative Urine Urobilinogen 1 H Ur Leukocyte Esterase 25 H Urine RBC 0 SEEN Urine WBC 0-5 SEEN Ur Squamous Epith Cells 0 SEEN Urine Bacteria RARE Hyaline Casts 0-5 SEEN Urine Mucus 1+ Active Medications Hydrocodone Bitart/Acetaminophen ([place] 5mg-325mg) 1 tablet PO Q4H PRN PRN PRN Reason: SEVERE PAIN (6-10/10) Last Admin: 12/22/17 11:37 Dose: 1 tablet Amlodipine Besylate (Norvasc) 10 mg PO DAILY [facility] Ascorbic Acid (Vitamin C) 500 mg PO BIDCM [facility] Last Admin: 12/22/17 07:30 Dose: 500 mg Aspirin (Aspirin, Baby) 81 mg PO DAILY@0800 [facility] Last Admin: 12/22/17 07:30 Dose: 81 mg Atorvastatin Calcium (Lipitor) 80 mg PO QHS [facility] Last Admin: 12/21/17 22:29 Dose: 80 mg Bisacodyl (Dulcolax) 10 mg RECTAL .PRN X 1 PRN PRN Reason: Constipation Citalopram Hydrobromide (Celexa) 40 mg PO DAILY [facility] Last Admin: 12/22/17 07:30 Dose: 40 mg Enoxaparin Sodium (Lovenox) 40 mg SC DAILY@0600 [facility] Last Admin: 12/22/17 05:30 Dose: 40 mg Fentanyl (Duragesic Patch) 50 mcg TRANSDERM. Q3D [facility] Last Admin: 12/19/17 14:56 Dose: 50 mcg Gabapentin (Neurontin) 300 mg PO QHS [facility] Last Admin: 12/21/17 22:29 Dose: 300 mg Magnesium Hydroxide (Milk Of Magnesia) 30 ml PO .PRN X 1 PRN PRN Reason: Constipation Last Admin: 12/17/17 20:43 Dose: 30 ml Megestrol Acetate (Megace) 40 mg PO 4X/DAY [facility] Last Admin: 12/22/17 11:08 Dose: 40 mg Nutritional Formula (Lactose Free) (Ensure Enlive) 120 ml PO 4X/DAY [facility] Last Admin: 12/22/17 11:08 Dose: 120 ml Ondansetron HCl (Zofran Odt) 4 mg PO Q6H PRN PRN PRN Reason: NAUSEA Last Admin: 12/21/17 08:08 Dose: 4 mg Polyethylene Glycol (Miralax) 17 gm PO DAILY [facility] Last Admin: 12/22/17 11:38 Dose: 17 gm Senna/Docusate Sodium (Senokot-S, Zeenat-Colace) 2 tablet PO BID [facility] Last Admin: 12/22/17 11:08 Dose: 2 tablet Medical Necessity - Tobacco Use Smoking Status: Never smoker Tobacco Use: Non-smoker Assessment/Plan Impression: Debility status post bilateral knee replacement surgery complicated by history of hypertension, hyperlipidemia, and controlled depression. Goal of therapy is oriental orthodox of prior level of functional independence. Plan: - Physical therapy for gait and balance - Occupational Therapy for ADLs - As needed analgesics - Bowel protocol - Continue Celexa, depression appears to repeat a remote issue at this point - Norvasc and hydrochlorothiazide for hypertension, controlled - Lipitor for hyperlipidemia - DVT prophylaxis: Lovenox, SCD, and Mino hoses - Increased fentanyl patch to 37 mcq - Poor appetite -> added Megace - Stroke prevention: ASA 81mg, and Statin - 30 day event monitor on discharge - Incision sites are C/D/I no warmth or redness noted along the incision - Re-team on Wednesday of next week - Orthostatic Hypotension - D/C HCTZ, Hold his Norvasc if SBP < 110
--- NOTE | 2017-12-22 14:00 | NURSING ---
Dr. rodriguez aware of orthostatic BP's and new orders received and patient aware to drink more fluids.
--- NOTE | 2017-12-22 16:42 | CHAPLAIN ---
Type of Pastoral Visit ___ Initial Visit _x__ Follow-up Visit ___ On-call Visit ___ General Patient Visit ___ Spiritual Assessment ___ Family Conference ___ Bereavement ___ Rapid Response ___ Code Blue ___ Other (describe below) Pastoral Care Referral From _x__ Patient ___ Family ___ Nurse ___ Physician ___ Registered Radiographer ___ Burn Center Nurse ___ Other (describe below) Sacrament/Intervention _x__ Active listening ___ Anointing ___ Baptist ___ Bereavement ___ Communion ___ Hyun exploration ___ _x__ Life review _x__ Prayer ___ Reconciliation ___ Sacrament of Sick _x__ Supportive presence ___ Wedding ___ Other (describe below) Pastoral Comments
[2017-12-22 20:32] VITALS: BP 141/76; PULSE 103; RESP 20; TEMP 36.7; O2SAT 98
[2017-12-22] MEDS: Atorvastatin Calcium 40 MG Tablet 80 MG PO (20:42)
[2017-12-22] MEDS: Gabapentin 300 MG Capsule PO (20:42)
[2017-12-23] MEDS: HYDROcodone Bitartrate/Apap 5/325 Tablet PO ×6 (01:03→23:30)
[2017-12-23] MEDS: Enoxaparin 40 MG/0.4 ML Syringe SC (05:49)
[2017-12-23 07:37] VITALS: BP 129/80; PULSE 114; RESP 19; TEMP 36.3; O2SAT 100
[2017-12-23] MEDS: Citalopram 40 MG TABLET PO (08:16)
[2017-12-23] MEDS: Senna/Docusate Sodium 1 Tablet 2 TABLET PO ×2 (08:16→20:27)
[2017-12-23] MEDS: Ascorbic Acid 500 MG Tablet PO ×2 (08:16→17:28)
[2017-12-23] MEDS: Aspirin 81 MG TAB.CHEW PO (08:16)
--- NOTE | 2017-12-23 09:45 | NURSING ---
[facility] [employer] DEPARTMENT CHAIR aware of small amt bright red drainage in toilet after hard formed stool noted and patient reported he had to strain to have the bm and new order received. This nurse will given anusol supp to patient.
[2017-12-23] MEDS: Megestrol 40 MG Tablet PO ×4 (10:32→20:27)
[2017-12-23] MEDS: amLODIPine 10 MG Tablet PO (10:32)
[2017-12-23] MEDS: Polyethylene Glycol 3350 17 GM PACKET PO (10:33)
--- NOTE | 2017-12-23 10:45 | PN.NEURO_ITS ---
Subjective: Patient seen and examined. Continues to have pain during the night, will increase his Fentanyl patch to 75mcq. He is tolerating therapy without difficulty. Denies any shortness of breath or calf pain. No issues with GI/. - Physical Exam General: Alert, Oriented x3, Cooperative HEENT: Atraumatic, PERRLA, EOMI, Normocephalic Neck: Supple, No JVD, Negative Carotid Bruits Lungs: Clear to auscultation, Normal air movement Cardiovascular: Regular rate, No murmurs Abdomen: Bowel Sounds Present, Soft, Non Tender Extremities: No edema, Capillary Refill Less than 3 Seconds Skin: No rashes, No breakdown Musculoskeletal: No Tenderness to Palpation of Joints or Extremities Neurological: Cranial nerves II-XII grossly intact Psych/Mental Status: Normal Affect, Appropriate, Alert and oriented to time, place, person, mood and affect Vital Signs Temp Pulse Resp BP Pulse Ox 97.4 F L 114 H 19 H 129/80 H 100 12/23/17 07:37 12/23/17 07:37 12/23/17 07:37 12/23/17 07:37 12/23/17 07:37 Oxygen Delivery Method Room Air Weight: 108.5 kg Body Mass Index (BMI) 33.7 Finger Stick Blood Glucose 237 Orthostatic Vital Signs Start: 12/22/17 13:22 Freq: q24h Status: Active Protocol: Activity Type Activity Date Activity User E-Sign Co-Sign Detail Recorded Client Recorded Date Recorded By Document 12/22/17 13:22 BL [id number] 12/22/17 13:37 BL 12/22/17 13:22 Orthostatic Vitals Standing -Blood Pressure (90/60-120/80) 93/76 -Extremity Use Right Arm -Pulse Rate (60-100) 70 Sitting -Blood Pressure (90/60-120/80) 124/81 H -Extremity Use Right Arm -Pulse Rate (60-100) 120 H Lying -Blood Pressure (90/60-120/80) 132/74 H -Extremity Use Right Arm -Pulse Rate (60-100) 107 H Intake and Output for Last 24 Hours 12/21/17 12/22/17 12/23/17 23:59 23:59 23:59 Intake Total 700 / 700 570 / 570 260 / 260 Balance 700 / 700 570 / 570 260 / 260 Laboratory Tests Past 24 Hrs 12/22/17 12:00 Urine Color Yellow Urine Clarity Sl. Cloudy Urine pH 6.0 Ur Specific [place] 1.020 Urine Protein 15 H Urine Glucose (UA) Normal Urine Ketones Negative Urine Occult Blood Negative Urine Nitrite Negative Urine Bilirubin Negative Urine Urobilinogen 1 H Ur Leukocyte Esterase 25 H Urine RBC 0 SEEN Urine WBC 0-5 SEEN Ur Squamous Epith Cells 0 SEEN Urine Bacteria RARE Hyaline Casts 0-5 SEEN Urine Mucus 1+ Active Medications Hydrocodone Bitart/Acetaminophen ([place] 5mg-325mg) 1 tablet PO Q4H PRN PRN PRN Reason: SEVERE PAIN (6-1010) Last Admin: 12/23/17 10:31 Dose: 1 tablet Amlodipine Besylate (Norvasc) 10 mg PO DAILY [facility] Last Admin: 12/23/17 10:32 Dose: 10 mg [facility] Last Admin: 12/23/17 08:16 Dose: 500 mg Aspirin (Aspirin, Baby) 81 mg PO DAILY@0800 [facility] Last Admin: 12/23/17 08:16 Dose: 81 mg Atorvastatin Calcium (Lipitor) 80 mg PO QHS [facility] Last Admin: 12/22/17 20:42 Dose: 80 mg Bisacodyl (Dulcolax) 10 mg RECTAL .PRN X 1 PRN PRN Reason: Constipation Citalopram Hydrobromide (Celexa) 40 mg PO DAILY [facility] Last Admin: 12/23/17 08:16 Dose: 40 mg Enoxaparin Sodium (Lovenox) 40 mg SC DAILY@0600 [facility] Last Admin: 12/23/17 05:49 Dose: 40 mg Fentanyl (Duragesic Patch) 75 mcg TRANSDERM. Q72H [facility] Last Admin: 12/23/17 10:32 Dose: 75 mcg Gabapentin (Neurontin) 300 mg PO QHS [facility] Last Admin: 12/22/17 20:42 Dose: 300 mg Hydrocortisone Acetate (Anusol Hc) 25 mg RECTAL BID PRN PRN PRN Reason: Hemorrhoids Magnesium Hydroxide (Milk Of Magnesia) 30 ml PO .PRN X 1 PRN PRN Reason: Constipation Last Admin: 12/17/17 20:43 Dose: 30 ml Megestrol Acetate (Megace) 40 mg PO 4X/DAY [facility] Last Admin: 12/23/17 10:32 Dose: 40 mg Nutritional Formula (Lactose Free) (Ensure Enlive) 120 ml PO 4X/DAY [facility] Last Admin: 12/23/17 08:18 Dose: Not Given Ondansetron HCl (Zofran Odt) 4 mg PO Q6H PRN PRN PRN Reason: NAUSEA Last Admin: 12/21/17 08:08 Dose: 4 mg Polyethylene Glycol (Miralax) 17 gm PO DAILY [facility] Last Admin: 12/23/17 10:33 Dose: 17 gm Senna/Docusate Sodium (Senokot-S, Zeenat-Colace) 2 tablet PO BID [facility] Last Admin: 12/23/17 08:16 Dose: 2 tablet Medical Necessity - Tobacco Use Smoking Status: Never smoker Tobacco Use: Non-smoker Assessment/Plan Impression: Debility status post bilateral knee replacement surgery complicated by history of hypertension, hyperlipidemia, and controlled depression. Goal of therapy is temple of prior level of functional independence. Plan: - Physical therapy for gait and balance - Occupational Therapy for ADLs - As needed analgesics - Bowel protocol - Continue Celexa, depression appears to repeat a remote issue at this point - Norvasc and hydrochlorothiazide for hypertension, controlled - Lipitor for hyperlipidemia - DVT prophylaxis: Lovenox, SCD, and Mino hoses - Increased fentanyl patch to 37 mcq - Poor appetite -> added Megace - Stroke prevention: ASA 81mg, and Statin - 30 day event monitor on discharge - Incision sites are C/D/I no warmth or redness noted along the incision - Re-team on Wednesday of next week - Orthostatic Hypotension - D/C HCTZ, Hold his Norvasc if SBP < 110 - Surgical incisional pain => increase Fentanyl patch to 75mcq
[2017-12-23] MEDS: Hydrocortisone 25 MG Suppository RECTAL (14:39)
[2017-12-23 19:08] VITALS: BP 120/78; PULSE 87; RESP 17; TEMP 36.9; O2SAT 96
[2017-12-23] MEDS: Gabapentin 300 MG Capsule PO (20:26)
[2017-12-23] MEDS: Atorvastatin Calcium 40 MG Tablet 80 MG PO (20:27)
[2017-12-24 06:23] LABS: Hematocrit 31.8 % (40-54); Hemoglobin 10.3 g/dl (13.0-16.5); Mean Corp Hgb Conc 32.4 g/gl (32-36); Mean Corpuscular Hgb 27.9 pg (27.0-32.0); Mean Corpuscular Volume 86.2 fL (80-94); Mean Platelet Vol. 8.6 fl (6.2-12.0); RBC Distribution Width CV 13.7 % (11.6-14.6); RBC Distribution Width SD 41.6 fl (35.1-43.9); Red Blood Count 3.69 M/mm3 (4.6-6.2)
[2017-12-24] MEDS: Enoxaparin 40 MG/0.4 ML Syringe SC (06:23)
[2017-12-24] MEDS: HYDROcodone Bitartrate/Apap 5/325 Tablet PO ×4 (06:23→21:08)
[2017-12-24 06:27] LABS: Scan Indicated on CBC? Y/N YES- FLAGS NOTED
[2017-12-24 06:28] LABS: Platelet Count 880 K/mm3 (150-450)
[2017-12-24 06:29] LABS: Anion Gap 7 (5-15); BUN 23 mg/dL (7-18); BUN/Creat Ratio 32.3 RATIO (10-20); Calcium,Total 8.5 mg/dL (8.5-10.1); Chloride 102 mmol/L (98-107); Creatinine, Serum 0.71 mg/dL (0.70-1.30); EST Glomerular Filtration Rate 121 mL/min (>60); Est Glom Filt Rate - Afr Amer 147 mL/min (>60); Estimated Creatinine Clearance 135.07 ml/min; Glucose 109 mg/dL (74-106); Potassium 4.1 mmol/L (3.5-5.1); Sodium Level 135 mmol/L (136-145)
[2017-12-24 07:19] LABS: Differential Comment SCAN
[2017-12-24 08:37] VITALS: BP 127/73; PULSE 85; RESP 16; TEMP 36.9; O2SAT 98
--- NOTE | 2017-12-24 10:50 | PN.NEURO_ITS ---
Subjective: Patient seen and examined. No new compliant, slept well during the night pain has improved since increase of the fentanyl patch. Tolerating therapy. No issues with GI/. - Physical Exam General: Alert, Oriented x3, Cooperative HEENT: Atraumatic, PERRLA, EOMI, Normocephalic Neck: Supple, No JVD, Negative Carotid Bruits Lungs: Clear to auscultation, Normal air movement Cardiovascular: Regular rate, No murmurs Abdomen: Bowel Sounds Present, Soft, Non Tender Extremities: No edema, Capillary Refill Less than 3 Seconds Skin: No rashes, No breakdown Musculoskeletal: No Tenderness to Palpation of Joints or Extremities Neurological: Cranial nerves II-XII grossly intact Psych/Mental Status: Normal Affect, Appropriate, Alert and oriented to time, place, person, mood and affect Vital Signs Temp Pulse Resp BP Pulse Ox 98.5 F 85 16 127/73 H 98 12/24/17 08:37 12/24/17 08:37 12/24/17 08:37 12/24/17 08:37 12/24/17 08:37 Oxygen Delivery Method Room Air Weight: 108.5 kg Body Mass Index (BMI) 33.7 Finger Stick Blood Glucose 237 Intake and Output for Last 24 Hours 12/22/17 12/23/17 12/24/17 23:59 23:59 23:59 Intake Total 570 / 570 500 / 500 420 / 420 Balance 570 / 570 500 / 500 420 / 420 Microbiology Past 72 Hours 12/22/17 12:00 Urine Culture - Final Urine Catheter - Catheter Culture exhibits no growth. Laboratory Tests Past 24 Hrs 12/24/17 12/24/17 05:40 05:40 WBC 13.0 H RBC 3.69 L Hgb 10.3 L Hct 31.8 L MCV 86.2 MCH 27.9 MCHC 32.4 RDW 13.7 RDW Differential 41.6 Plt Count 880 H* MPV 8.6 Differential Comment SCAN Diff Path Review May foll Sodium 135 L Potassium 4.1 Chloride 102 Carbon Dioxide 26.0 Anion Gap 7 BUN 23 H Creatinine 0.71 Estim Creat Clear Calc 135.07 Est GFR (MDRD) Af Amer 147 Est GFR (MDRD) Non-Af 121 BUN/Creatinine Ratio 32.3 H Glucose 109 H Calcium 8.5 Active Medications Hydrocodone Bitart/Acetaminophen ([place] 5mg-325mg) 1 tablet PO Q4H PRN PRN PRN Reason: SEVERE PAIN (6-10/10) Last Admin: 12/24/17 06:23 Dose: 1 tablet Amlodipine Besylate (Norvasc) 10 mg PO DAILY [facility] Last Admin: 12/23/17 10:32 Dose: 10 mg Ascorbic Acid (Vitamin C) 500 mg PO BIDCM [facility] Last Admin: 12/23/17 17:28 Dose: 500 mg Aspirin (Aspirin, Baby) 81 mg PO DAILY@0800 [facility] Last Admin: 12/23/17 08:16 Dose: 81 mg Atorvastatin Calcium (Lipitor) 80 mg PO QHS [facility] Last Admin: 12/23/17 20:27 Dose: 80 mg Bisacodyl (Dulcolax) 10 mg RECTAL .PRN X 1 PRN PRN Reason: Constipation Citalopram Hydrobromide (Celexa) 40 mg PO DAILY [facility] Last Admin: 12/23/17 08:16 Dose: 40 mg Enoxaparin Sodium (Lovenox) 40 mg SC DAILY@0600 [facility] Last Admin: 12/24/17 06:23 Dose: 40 mg Fentanyl (Duragesic Patch) 75 mcg TRANSDERM. Q72H [facility] Last Admin: 12/23/17 10:32 Dose: 75 mcg Gabapentin (Neurontin) 300 mg PO QHS [facility] Last Admin: 12/23/17 20:26 Dose: 300 mg Hydrocortisone Acetate (Anusol Hc) 25 mg RECTAL BID PRN PRN PRN Reason: Hemorrhoids Last Admin: 12/23/17 14:39 Dose: 25 mg Magnesium Hydroxide (Milk Of Magnesia) 30 ml PO .PRN X 1 PRN PRN Reason: Constipation Last Admin: 12/17/17 20:43 Dose: 30 ml Megestrol Acetate (Megace) 40 mg PO 4X/DAY [facility] Last Admin: 12/23/17 20:27 Dose: 40 mg Nutritional Formula (Lactose Free) (Ensure Enlive) 120 ml PO 4X/DAY [facility] Last Admin: 12/23/17 20:27 Dose: Not Given Ondansetron HCl (Zofran Odt) 4 mg PO Q6H PRN PRN PRN Reason: NAUSEA Last Admin: 12/21/17 08:08 Dose: 4 mg Polyethylene Glycol (Miralax) 17 gm PO DAILY [facility] Last Admin: 12/23/17 10:33 Dose: 17 gm Senna/Docusate Sodium (Senokot-S, Zeenat-Colace) 2 tablet PO BID [facility] Last Admin: 12/23/17 20:27 Dose: 2 tablet Medical Necessity - Tobacco Use Smoking Status: Never smoker Tobacco Use: Non-smoker Assessment/Plan Impression: Debility status post bilateral knee replacement surgery complicated by history of hypertension, hyperlipidemia, and controlled depression. Goal of therapy is tenriism of prior level of functional independence. Plan: - Physical therapy for gait and balance - Occupational Therapy for ADLs - As needed analgesics - Bowel protocol - Continue Celexa, depression appears to repeat a remote issue at this point - Norvasc and hydrochlorothiazide for hypertension, controlled - Lipitor for hyperlipidemia - DVT prophylaxis: Lovenox, SCD, and Mino hoses - Increased fentanyl patch to 37 mcq - Poor appetite -> added Megace - Stroke prevention: ASA 81mg, and Statin - 30 day event monitor on discharge - Incision sites are C/D/I no warmth or redness noted along the incision - Re-team on Wednesday of next week - Orthostatic Hypotension - D/C HCTZ, Hold his Norvasc if SBP < 110 - Surgical incisional pain => increase Fentanyl patch to 75mcq
[2017-12-24] MEDS: Polyethylene Glycol 3350 17 GM PACKET PO (11:08)
[2017-12-24] MEDS: Megestrol 40 MG Tablet PO ×4 (11:08→21:05)
[2017-12-24] MEDS: Citalopram 40 MG TABLET PO (11:09)
[2017-12-24] MEDS: Aspirin 81 MG TAB.CHEW PO (11:09)
[2017-12-24] MEDS: amLODIPine 10 MG Tablet PO (11:09)
[2017-12-24] MEDS: Ascorbic Acid 500 MG Tablet PO ×2 (11:09→18:21)
--- NOTE | 2017-12-24 11:52 | PN_ITS ---
Subjective: Seen feels much better compared to 2 days ago. Tolerating PT well Objective: General: Alert HEENT: Atraumatic Neck: Supple Lungs: Diminished Cardiovascular: Regular rate, Regular Rhythm Abdomen: Non-Distended Extremities: No clubbing Neurological: Neuro grossly intact Psych/Mental Status: Normal Affect Vitals/I&O's: Vital Signs Temp Pulse Resp BP Pulse Ox 98.5 F 85 16 127/73 H 98 12/24/17 08:37 12/24/17 08:37 12/24/17 08:37 12/24/17 08:37 12/24/17 08:37 Oxygen Delivery Method Room Air Weight: 108.5 kg Body Mass Index (BMI) 33.7 Finger Stick Blood Glucose 237 Intake and Output for Last 24 Hours 12/22/17 12/23/17 12/24/17 23:59 23:59 23:59 Intake Total 570 / 570 500 / 500 420 / 420 Balance 570 / 570 500 / 500 420 / 420 Microbiology Past 72 Hours 12/22/17 12:00 Urine Catheter - Catheter Urine Culture - Final Culture exhibits no growth. Laboratory Results 12/24/17 05:40: WBC 13.0 H, RBC 3.69 L, Hgb 10.3 L, Hct 31.8 L, MCV 86.2, MCH 27.9, MCHC 32.4, RDW 13.7, RDW Differential 41.6, Plt Count 880 H*, MPV 8.6, Differential Comment SCAN, Diff Path Review January12/24/17 05:40: Sodium 135 L, Potassium 4.1, Chloride 102, Carbon Dioxide 26.0, Anion Gap 7, BUN 23 H, Creatinine 0.71, Estim Creat Clear Calc 135.07, Est GFR ( MDRD) Af Amer 147, Est GFR (MDRD) Non-Af 121, BUN/Creatinine Ratio 32.3 H, Glucose 109 H, Calcium 8.5 Current Medications Hydrocodone Bitart/Acetaminophen ([place] 5mg-325mg) 1 tablet PO Q4H PRN PRN PRN Reason: SEVERE PAIN (6-10/10) Last Admin: 12/24/17 11:08 Dose: 1 tablet Amlodipine Besylate (Norvasc) 10 mg PO DAILY [facility] Last Admin: 12/24/17 11:09 Dose: 10 mg Ascorbic Acid (Vitamin C) 500 mg PO BIDCM [facility] Last Admin: 12/24/17 11:09 Dose: 500 mg Aspirin (Aspirin, Baby) 81 mg PO DAILY@0800 [facility] Last Admin: 12/24/17 11:09 Dose: 81 mg Atorvastatin Calcium (Lipitor) 80 mg PO QHS [facility] Last Admin: 12/23/17 20:27 Dose: 80 mg Bisacodyl (Dulcolax) 10 mg RECTAL .PRN X 1 PRN PRN Reason: Constipation Citalopram Hydrobromide (Celexa) 40 mg PO DAILY [facility] Last Admin: 12/24/17 11:09 Dose: 40 mg Enoxaparin Sodium (Lovenox) 40 mg SC DAILY@0600 [facility] Last Admin: 12/24/17 06:23 Dose: 40 mg Fentanyl (Duragesic Patch) 75 mcg TRANSDERM. Q72H [facility] Last Admin: 12/23/17 10:32 Dose: 75 mcg Gabapentin (Neurontin) 300 mg PO QHS [facility] Last Admin: 12/23/17 20:26 Dose: 300 mg Hydrocortisone Acetate (Anusol Hc) 25 mg RECTAL BID PRN PRN PRN Reason: Hemorrhoids Last Admin: 12/23/17 14:39 Dose: 25 mg Magnesium Hydroxide (Milk Of Magnesia) 30 ml PO .PRN X 1 PRN PRN Reason: Constipation Last Admin: 12/17/17 20:43 Dose: 30 ml Megestrol Acetate (Megace) 40 mg PO 4X/DAY [facility] Last Admin: 12/24/17 11:08 Dose: 40 mg Nutritional Formula (Lactose Free) (Ensure Enlive) 120 ml PO 4X/DAY [facility] Last Admin: 12/24/17 11:08 Dose: 120 ml Ondansetron HCl (Zofran Odt) 4 mg PO Q6H PRN PRN PRN Reason: NAUSEA Last Admin: 12/21/17 08:08 Dose: 4 mg Polyethylene Glycol (Miralax) 17 gm PO DAILY [facility] Last Admin: 12/24/17 11:08 Dose: 17 gm Senna/Docusate Sodium (Senokot-S, Zeenat-Colace) 2 tablet PO BID [facility] Last Admin: 12/24/17 11:09 Dose: Not Given Medical Necessity - Tobacco Use Smoking Status: Never smoker Tobacco Use: Non-smoker Assessment/Plan Patient is a 57-year-old gentleman with multiple comorbidities who underwent bilateral knee replacement by orthopedic surgery subsequently transferred to [facility] 1. Status post bilateral total knee arthroplasty on 12/08/2017 at [facility] [place] transferred to the inpatient rehab unit where patient is currently undergoing therapy 2. Hypertension-blood pressure controlled, home medications continued with dose adjustment as needed 3. Dyslipidemia-patient is on statin therapy, continued at home dose 4. Generalized osteoarthritis 5. History of previous CVA 6. Depression with anxiety 7. DVT prophylaxis SC Lovenox 8. Obesity with BMI of 32.0 weight loss advised 9. Constipation treated symptomatically 10. Thrombocytosis possibly reactive did order chest-x-ray as well as urinalysis to rule out infectious etiology. work up was negative Code Visit Inpatient E&M: 25876 Subs Hosp L2
[2017-12-24 21:01] VITALS: BP 138/73; PULSE 94; RESP 17; TEMP 36.8; O2SAT 98
[2017-12-24] MEDS: Atorvastatin Calcium 40 MG Tablet 80 MG PO (21:04)
[2017-12-24] MEDS: Gabapentin 300 MG Capsule PO (21:05)
[2017-12-24] MEDS: Senna/Docusate Sodium 1 Tablet 2 TABLET PO (21:05)
[2017-12-25] MEDS: HYDROcodone Bitartrate/Apap 5/325 Tablet PO ×4 (02:56→20:21)
[2017-12-25] MEDS: Enoxaparin 40 MG/0.4 ML Syringe SC (06:06)
[2017-12-25] MEDS: Citalopram 40 MG TABLET PO (08:51)
[2017-12-25] MEDS: Megestrol 40 MG Tablet PO ×4 (08:51→20:22)
[2017-12-25] MEDS: Aspirin 81 MG TAB.CHEW PO (08:51)
[2017-12-25] MEDS: Ascorbic Acid 500 MG Tablet PO ×2 (08:51→17:37)
[2017-12-25] MEDS: Senna/Docusate Sodium 1 Tablet 2 TABLET PO ×2 (08:52→20:22)
[2017-12-25] MEDS: Polyethylene Glycol 3350 17 GM PACKET PO (08:52)
[2017-12-25] MEDS: amLODIPine 10 MG Tablet PO (08:52)
[2017-12-25 09:05] VITALS: BP 143/77; PULSE 107; RESP 18; TEMP 37.1; O2SAT 94
[2017-12-25 09:07] VITALS: PULSE 107
[2017-12-25 20:18] VITALS: BP 142/83; PULSE 101; RESP 17; TEMP 37.3; O2SAT 97
[2017-12-25] MEDS: Gabapentin 300 MG Capsule PO (20:22)
[2017-12-25] MEDS: Atorvastatin Calcium 40 MG Tablet 80 MG PO (20:22)
[2017-12-25 20:44] VITALS: PULSE 101
[2017-12-26] MEDS: HYDROcodone Bitartrate/Apap 5/325 Tablet PO ×5 (00:17→23:43)
[2017-12-26 00:39] VITALS: BP 140/70; PULSE 99; RESP 17; TEMP 36.8; O2SAT 98
[2017-12-26] MEDS: Enoxaparin 40 MG/0.4 ML Syringe SC (05:02)
[2017-12-26] MEDS: Megestrol 40 MG Tablet PO ×4 (08:56→20:36)
[2017-12-26] MEDS: Ascorbic Acid 500 MG Tablet PO ×2 (08:56→18:03)
[2017-12-26] MEDS: Senna/Docusate Sodium 1 Tablet 2 TABLET PO ×2 (08:56→20:35)
[2017-12-26] MEDS: Citalopram 40 MG TABLET PO (08:56)
[2017-12-26] MEDS: amLODIPine 10 MG Tablet PO (08:56)
[2017-12-26] MEDS: Polyethylene Glycol 3350 17 GM PACKET PO (08:56)
[2017-12-26] MEDS: Aspirin 81 MG TAB.CHEW PO (08:56)
[2017-12-26 10:00] VITALS: BP 143/91; PULSE 94; RESP 18; TEMP 36.6; O2SAT 96
--- NOTE | 2017-12-26 12:33 | PCM.PN.HOSP ---
Subjective: Seen complains of significant discomfort in both knees otherwise tolerating PT well Objective: General: Alert HEENT: Atraumatic Neck: Supple Lungs: Diminished Cardiovascular: Regular rate, Regular Rhythm Abdomen: Non-Distended Extremities: No clubbing Neurological: Neuro grossly intact Psych/Mental Status: Normal Affect Vitals/I&O's: Vital Signs Temp Pulse Resp BP Pulse Ox 98 F 94 18 143/91 H 96 12/26/17 10:00 12/26/17 10:00 12/26/17 10:00 12/26/17 10:00 12/26/17 10:00 Oxygen Delivery Method Room Air Weight: 108.5 kg Body Mass Index (BMI) 33.7 Finger Stick Blood Glucose 237 Intake and Output for Last 24 Hours 12/24/17 12/25/17 12/26/17 23:59 23:59 23:59 Intake Total 660 / 660 Balance 660 / 660 Microbiology Past 72 Hours 12/22/17 12:00 Urine Catheter - Catheter Urine Culture - Final Culture exhibits no growth. Current Medications Hydrocodone Bitart/Acetaminophen ([place] 5mg-325mg) 1 tablet PO Q4H PRN PRN PRN Reason: SEVERE PAIN (6-10/10) Last Admin: 12/26/17 05:02 Dose: 1 tablet Amlodipine Besylate (Norvasc) 10 mg PO DAILY [facility] Last Admin: 12/26/17 08:56 Dose: 10 mg Ascorbic Acid (Vitamin C) 500 mg PO BIDCM [facility] Last Admin: 12/26/17 08:56 Dose: 500 mg Aspirin (Aspirin, Baby) 81 mg PO DAILY@0800 [facility] Last Admin: 12/26/17 08:56 Dose: 81 mg Atorvastatin Calcium (Lipitor) 80 mg PO QHS [facility] Last Admin: 12/25/17 20:22 Dose: 80 mg Bisacodyl (Dulcolax) 10 mg RECTAL .PRN X 1 PRN PRN Reason: Constipation Citalopram Hydrobromide (Celexa) 40 mg PO DAILY [facility] Last Admin: 12/26/17 08:56 Dose: 40 mg Enoxaparin Sodium (Lovenox) 40 mg SC DAILY@0600 [facility] Last Admin: 12/26/17 05:02 Dose: 40 mg Fentanyl (Duragesic Patch) 75 mcg TRANSDERM. Q72H [facility] Last Admin: 12/26/17 09:55 Dose: 75 mcg Gabapentin (Neurontin) 300 mg PO QHS [facility] Last Admin: 12/25/17 20:22 Dose: 300 mg Hydrocortisone Acetate (Anusol Hc) 25 mg RECTAL BID PRN PRN PRN Reason: Hemorrhoids Last Admin: 12/23/17 14:39 Dose: 25 mg Magnesium Hydroxide (Milk Of Magnesia) 30 ml PO .PRN X 1 PRN PRN Reason: Constipation Last Admin: 12/17/17 20:43 Dose: 30 ml Megestrol Acetate (Megace) 40 mg PO 4X/DAY [facility] Last Admin: 12/26/17 08:56 Dose: 40 mg Nutritional Formula (Lactose Free) (Ensure Enlive) 120 ml PO 4X/DAY [facility] Last Admin: 12/26/17 08:57 Dose: Not Given Ondansetron HCl (Zofran Odt) 4 mg PO Q6H PRN PRN PRN Reason: NAUSEA Last Admin: 12/21/17 08:08 Dose: 4 mg Polyethylene Glycol (Miralax) 17 gm PO DAILY [facility] Last Admin: 12/26/17 08:56 Dose: 17 gm Senna/Docusate Sodium (Senokot-S, Zeenat-Colace) 2 tablet PO BID [facility] Last Admin: 12/26/17 08:56 Dose: 2 tablet Medical Necessity - Tobacco Use Smoking Status: Never smoker Tobacco Use: Non-smoker Assessment/Plan Patient is a 57-year-old gentleman with multiple comorbidities who underwent bilateral knee replacement by orthopedic surgery subsequently transferred to [facility] 1. Status post bilateral total knee arthroplasty on 12/08/2017 at [facility] transferred to the inpatient rehab unit where patient is currently undergoing therapy 2. Hypertension-blood pressure controlled, home medications continued with dose adjustment as needed 3. Dyslipidemia-patient is on statin therapy, continued at home dose 4. Generalized osteoarthritis 5. History of previous CVA 6. Depression with anxiety 7. DVT prophylaxis SC Lovenox 8. Obesity with BMI of 32.0 weight loss advised 9. Constipation treated symptomatically 10. Thrombocytosis possibly reactive did order chest-x-ray as well as urinalysis to rule out infectious etiology. work up was negative Code Visit Inpatient E&M: 99954 Subs Hosp L2
--- NOTE | 2017-12-26 16:35 | NURSING ---
Pt walked 2x around rehab unit and did nustep, tolerating well.
[2017-12-26 20:23] VITALS: BP 136/79; PULSE 94; RESP 17; TEMP 36.4; O2SAT 94
[2017-12-26] MEDS: Gabapentin 300 MG Capsule PO (20:36)
[2017-12-26] MEDS: Atorvastatin Calcium 40 MG Tablet 80 MG PO (20:36)
[2017-12-27] MEDS: HYDROcodone Bitartrate/Apap 5/325 Tablet PO ×4 (05:05→20:41)
[2017-12-27] MEDS: Enoxaparin 40 MG/0.4 ML Syringe SC (05:05)
[2017-12-27 06:27] LABS: Anion Gap 8 (5-15); BUN 15 mg/dL (7-18); BUN/Creat Ratio 21.8 RATIO (10-20); Calcium,Total 8.6 mg/dL (8.5-10.1); Chloride 100 mmol/L (98-107); Creatinine, Serum 0.69 mg/dL (0.70-1.30); EST Glomerular Filtration Rate 126 mL/min (>60); Est Glom Filt Rate - Afr Amer 153 mL/min (>60); Estimated Creatinine Clearance 138.99 ml/min; Glucose 107 mg/dL (74-106); Magnesium 1.8 mg/dL (1.6-2.6); Potassium 4.4 mmol/L (3.5-5.1); Sodium Level 134 mmol/L (136-145)
[2017-12-27 06:58] LABS: Absolute Lymphocyte Count 3.75 X10^3/ul (0.83-4.51); Absolute Neutrophil Count 6.6 X10^3/uL (2.0-7.7); Basophil# 0.02 X10^3/uL; Basophil% 0.2 % (0-1); Eosinophil# 0.31 X10^3/uL; Eosinophils% 2.7 % (0-5); Hematocrit 33.4 % (40-54); Hemoglobin 10.5 g/dl (13.0-16.5); Lymphocyte # 3.75 X10^3/ul (4.0); Lymphocyte % 32.7 % (19-41); Mean Corp Hgb Conc 31.4 g/gl (32-36); Mean Corpuscular Hgb 27.3 pg (27.0-32.0); Mean Corpuscular Volume 86.8 fL (80-94); Mean Platelet Vol. 8.5 fl (6.2-12.0); Monocyte# 0.78 X10^3/uL; Monocyte% 6.8 % (0-10); Neutrophil # 6.56 X10^3/uL (2.7-7.7); Neutrophil % 57.3 % (47-70); RBC Distribution Width CV 13.9 % (11.6-14.6); RBC Distribution Width SD 44.3 fl (35.1-43.9); Red Blood Count 3.85 M/mm3 (4.6-6.2); White Blood Count 11.5 K/mm3 (4.4-11.0)
[2017-12-27 07:01] LABS: Differential Indicated SCAN CRITERIA MET; POSITIVE COUNT YES; POSITIVE DIFFERENTIAL NO; POSITIVE MORPHOLOGY NO; Platelet Count 893 K/mm3 (150-450)
[2017-12-27 07:38] VITALS: BP 125/82; PULSE 103; RESP 18; TEMP 36.4; O2SAT 96
[2017-12-27] MEDS: Senna/Docusate Sodium 1 Tablet 2 TABLET PO ×2 (07:43→20:39)
[2017-12-27] MEDS: Aspirin 81 MG TAB.CHEW PO (07:43)
[2017-12-27] MEDS: Citalopram 40 MG TABLET PO (07:43)
[2017-12-27] MEDS: Polyethylene Glycol 3350 17 GM PACKET PO (07:43)
[2017-12-27] MEDS: Ascorbic Acid 500 MG Tablet PO ×2 (07:43→16:55)
[2017-12-27] MEDS: amLODIPine 10 MG Tablet PO (07:44)
[2017-12-27] MEDS: Megestrol 40 MG Tablet PO (07:44)
--- NOTE | 2017-12-27 08:44 | NURSING ---
dr rodriguez aware of platlet count of 893. new order for sed rate and to d/c megace.
--- NOTE | 2017-12-27 08:59 | PCM.PN.NEU ---
Subjective: Staffed in team meeting. Family at bedside. Questions answered. With Physical therapy, He is supervision for transfers, bed mobility, and getting on and off the toilet. He is able to walk about 300 to 600 feet at standby assist, or with the therapist walking a few steps behind. He is able to go up and down a flight of stairs using both hand rails at stand by assist. With Occupational therapy, he is supervision for personal care. With Nursing, he continues to have Thrombocytosis, his Sed Rate is 56, and his C-Reactive Protein is 27.50. In the records sent with the patient he had an elevated Platelet count of 391 on 11/29/17, requested additional Lab records from facility where his surgery was performed. He is having pain in his left calf also will obtain B/L Doppler of his lower extremities. The plan is for discharge on Sunday 12/31 home with outpatient Physical therapy. - Physical Exam General: Alert, Oriented x3, Cooperative HEENT: Atraumatic, PERRLA, EOMI, Normocephalic Neck: Supple, No JVD, Negative Carotid Bruits Lungs: Clear to auscultation, Normal air movement Cardiovascular: Regular rate, No murmurs Abdomen: Bowel Sounds Present, Soft, Non Tender Extremities: No edema, Capillary Refill Less than 3 Seconds Skin: No rashes, No breakdown Musculoskeletal: No Tenderness to Palpation of Joints or Extremities Neurological: Cranial nerves II-XII grossly intact Psych/Mental Status: Normal Affect, Appropriate, Alert and oriented to time, place, person, mood and affect Vital Signs Temp Pulse Resp BP Pulse Ox 97.5 F L 103 H 18 125/82 H 96 12/27/17 07:38 12/27/17 07:38 12/27/17 07:38 12/27/17 07:38 12/27/17 07:38 Oxygen Delivery Method Room Air Weight: 108.5 kg Body Mass Index (BMI) 33.7 Finger Stick Blood Glucose 237 Microbiology Past 72 Hours 12/22/17 12:00 Urine Culture - Final Urine Catheter - Catheter Culture exhibits no growth. Laboratory Tests Past 24 Hrs 12/27/17 12/27/17 12/27/17 05:30 05:30 05:30 WBC 11.5 H RBC 3.85 L Hgb 10.5 L Hct 33.4 L MCV 86.8 MCH 27.3 MCHC 31.4 L RDW 13.9 RDW Differential 44.3 H Plt Count 893 H* MPV 8.5 Immature Gran % (Auto) 0.300 Neut % (Auto) 57.3 Lymph % (Auto) 32.7 [place] % (Auto) 6.8 Eos % (Auto) 2.7 Baso % (Auto) 0.2 Absolute Neuts (auto) 6.6 Absolute Lymphs (auto) 3.75 Total Counted Pending ESR Pending Sodium 134 L Potassium 4.4 Chloride 100 Carbon Dioxide 26.0 Anion Gap 8 BUN 15 Creatinine 0.69 L Estim Creat Clear Calc 138.99 Est GFR (MDRD) Af Amer 153 Est GFR (MDRD) Non-Af 126 BUN/Creatinine Ratio 21.8 H Glucose 107 H Calcium 8.6 Magnesium 1.8 Active Medications Hydrocodone Bitart/Acetaminophen ([place] 5mg-325mg) 1 tablet PO Q4H PRN PRN PRN Reason: SEVERE PAIN (6-10/10) Last Admin: 12/27/17 05:05 Dose: 1 tablet Amlodipine Besylate (Norvasc) 10 mg PO DAILY [facility] Last Admin: 12/27/17 07:44 Dose: 10 mg [facility] Last Admin: 12/27/17 07:43 Dose: 500 mg Aspirin (Aspirin, Baby) 81 mg PO DAILY@0800 [facility] Last Admin: 12/27/17 07:43 Dose: 81 mg Atorvastatin Calcium (Lipitor) 80 mg PO QHS [facility] Last Admin: 12/26/17 20:36 Dose: 80 mg Bisacodyl (Dulcolax) 10 mg RECTAL .PRN X 1 PRN PRN Reason: Constipation Citalopram Hydrobromide (Celexa) 40 mg PO DAILY [facility] Last Admin: 12/27/17 07:43 Dose: 40 mg Enoxaparin Sodium (Lovenox) 40 mg SC DAILY@0600 [facility] Last Admin: 12/27/17 05:05 Dose: 40 mg Fentanyl (Duragesic Patch) 75 mcg TRANSDERM. Q72H [facility] Last Admin: 12/26/17 09:55 Dose: 75 mcg Gabapentin (Neurontin) 300 mg PO QHS [facility] Last Admin: 12/26/17 20:36 Dose: 300 mg Hydrocortisone Acetate (Anusol Hc) 25 mg RECTAL BID PRN PRN PRN Reason: Hemorrhoids Last Admin: 12/23/17 14:39 Dose: 25 mg Magnesium Hydroxide (Milk Of Magnesia) 30 ml PO .PRN X 1 PRN PRN Reason: Constipation Last Admin: 12/17/17 20:43 Dose: 30 ml Nutritional Formula (Lactose Free) (Ensure Enlive) 120 ml PO 4X/DAY [facility] Last Admin: 12/27/17 07:45 Dose: 120 ml Ondansetron HCl (Zofran Odt) 4 mg PO Q6H PRN PRN PRN Reason: NAUSEA Last Admin: 12/21/17 08:08 Dose: 4 mg Polyethylene Glycol (Miralax) 17 gm PO DAILY [facility] Last Admin: 12/27/17 07:43 Dose: 17 gm Senna/Docusate Sodium (Senokot-S, Zeenat-Colace) 2 tablet PO BID [facility] Last Admin: 12/27/17 07:43 Dose: 2 tablet Medical Necessity - Tobacco Use Smoking Status: Never smoker Tobacco Use: Non-smoker Assessment/Plan Impression: Debility status post bilateral knee replacement surgery complicated by history of hypertension, hyperlipidemia, and controlled depression. Goal of therapy is congregation of prior level of functional independence. Plan: - Physical therapy for gait and balance - Occupational Therapy for ADLs - As needed analgesics - Bowel protocol - Continue Celexa, depression appears to repeat a remote issue at this point - Norvasc and hydrochlorothiazide for hypertension, controlled - Lipitor for hyperlipidemia - DVT prophylaxis: Lovenox, SCD, and Mino hoses - Increased fentanyl patch to 37 mcq - Poor appetite -> added Megace - Stroke prevention: ASA 81mg, and Statin - 30 day event monitor on discharge - Incision sites are C/D/I no warmth or redness noted along the incision - Re-team on Wednesday of next week - Orthostatic Hypotension - D/C HCTZ, Hold his Norvasc if SBP < 110 - Surgical incisional pain => increase Fentanyl patch to 75mcq - Thrombocytosis - obtain Sed rate, C- reactive protein, and d/c Megace - B/L Doppler of lower extremity
--- NOTE | 2017-12-27 09:03 | PN.NEURO_ITS ---
Subjective: Staffed in team meeting. Family at bedside. Questions answered. With Physical therapy, He is supervision for transfers, bed mobility, and getting on and off the toilet. He is able to walk about 300 to 600 feet at standby assist, or with the therapist walking a few steps behind. He is able to go up and down a flight of stairs using both hand rails at stand by assist. With Occupational therapy, he is supervision for personal care. With Nursing, he continues to have Thrombocytosis, his Sed Rate is 56, and his C-Reactive Protein is 27.50. In the records sent with the patient he had an elevated Platelet count of 391 on , requested additional Lab records from facility where his surgery was performed. He is having pain in his left calf also will obtain B/L Doppler of his lower extremities. The plan is for discharge on Sunday 12/31 home with outpatient Physical therapy. - Physical Exam General: Alert, Oriented x3, Cooperative HEENT: Atraumatic, PERRLA, EOMI, Normocephalic Neck: Supple, No JVD, Negative Carotid Bruits Lungs: Clear to auscultation, Normal air movement Cardiovascular: Regular rate, No murmurs Abdomen: Bowel Sounds Present, Soft, Non Tender Extremities: No edema, Capillary Refill Less than 3 Seconds Skin: No rashes, No breakdown Musculoskeletal: No Tenderness to Palpation of Joints or Extremities Neurological: Cranial nerves II-XII grossly intact Psych/Mental Status: Normal Affect, Appropriate, Alert and oriented to time, place, person, mood and affect Vital Signs Temp Pulse Resp BP Pulse Ox 97.5 F L 103 H 18 125/82 H 96 12/27/17 07:38 12/27/17 07:38 12/27/17 07:38 12/27/17 07:38 12/27/17 07:38 Oxygen Delivery Method Room Air Weight: 108.5 kg Body Mass Index (BMI) 33.7 Finger Stick Blood Glucose 237 Microbiology Past 72 Hours 12/22/17 12:00 Urine Culture - Final Urine Catheter - Catheter Culture exhibits no growth. Laboratory Tests Past 24 Hrs 12/27/17 12/27/17 12/27/17 05:30 05:30 05:30 WBC 11.5 H RBC 3.85 L Hgb 10.5 L Hct 33.4 L MCV 86.8 MCH 27.3 MCHC 31.4 L RDW 13.9 RDW Differential 44.3 H Plt Count 893 H* MPV 8.5 Immature Gran % (Auto) 0.300 Neut % (Auto) 57.3 Lymph % (Auto) 32.7 [place] % (Auto) 6.8 Eos % (Auto) 2.7 Baso % (Auto) 0.2 Absolute Neuts (auto) 6.6 Absolute Lymphs (auto) 3.75 Total Counted Pending ESR Pending Sodium 134 L Potassium 4.4 Chloride 100 Carbon Dioxide 26.0 Anion Gap 8 BUN 15 Creatinine 0.69 L Estim Creat Clear Calc 138.99 Est GFR (MDRD) Af Amer 153 Est GFR (MDRD) Non-Af 126 BUN/Creatinine Ratio 21.8 H Glucose 107 H Calcium 8.6 Magnesium 1.8 Active Medications Hydrocodone Bitart/Acetaminophen ([place] 5mg-325mg) 1 tablet PO Q4H PRN PRN PRN Reason: SEVERE PAIN (6-10/10) Last Admin: 12/27/17 05:05 Dose: 1 tablet Amlodipine Besylate (Norvasc) 10 mg PO DAILY [facility] Last Admin: 12/27/17 07:44 Dose: 10 mg [facility]ic [facility] ([facility] C) [facility] Last Admin: 12/27/17 07:43 Dose: 500 mg Aspirin (Aspirin, Baby) 81 mg PO DAILY@0800 [facility] Last Admin: 12/27/17 07:43 Dose: 81 mg Atorvastatin Calcium (Lipitor) 80 mg PO QHS [facility] Last Admin: 12/26/17 20:36 Dose: 80 mg Bisacodyl (Dulcolax) 10 mg RECTAL .PRN X 1 PRN PRN Reason: Constipation Citalopram Hydrobromide (Celexa) 40 mg PO DAILY [facility] Last Admin: 12/27/17 07:43 Dose: 40 mg Enoxaparin Sodium (Lovenox) 40 mg SC DAILY@0600 [facility] Last Admin: 12/27/17 05:05 Dose: 40 mg Fentanyl (Duragesic Patch) 75 mcg TRANSDERM. Q72H [facility] Last Admin: 12/26/17 09:55 Dose: 75 mcg Gabapentin (Neurontin) 300 mg PO QHS [facility] Last Admin: 12/26/17 20:36 Dose: 300 mg Hydrocortisone Acetate (Anusol Hc) 25 mg RECTAL BID PRN PRN PRN Reason: Hemorrhoids Last Admin: 12/23/17 14:39 Dose: 25 mg Magnesium Hydroxide (Milk Of Magnesia) 30 ml PO .PRN X 1 PRN PRN Reason: Constipation Last Admin: 12/17/17 20:43 Dose: 30 ml Nutritional Formula (Lactose Free) (Ensure Enlive) 120 ml PO 4X/DAY [facility] Last Admin: 12/27/17 07:45 Dose: 120 ml Ondansetron HCl (Zofran Odt) 4 mg PO Q6H PRN PRN PRN Reason: NAUSEA Last Admin: 12/21/17 08:08 Dose: 4 mg Polyethylene Glycol (Miralax) 17 gm PO DAILY [facility] Last Admin: 12/27/17 07:43 Dose: 17 gm Senna/Docusate Sodium (Senokot-S, Zeenat-Colace) 2 tablet PO BID [facility] Last Admin: 12/27/17 07:43 Dose: 2 tablet Medical Necessity - Tobacco Use Smoking Status: Never smoker Tobacco Use: Non-smoker Assessment/Plan Impression: Debility status post bilateral knee replacement surgery complicated by history of hypertension, hyperlipidemia, and controlled depression. Goal of therapy is anglican of prior level of functional independence. Plan: - Physical therapy for gait and balance - Occupational Therapy for ADLs - As needed analgesics - Bowel protocol - Continue Celexa, depression appears to repeat a remote issue at this point - Norvasc and hydrochlorothiazide for hypertension, controlled - Lipitor for hyperlipidemia - DVT prophylaxis: Lovenox, SCD, and Mino hoses - Increased fentanyl patch to 37 mcq - Poor appetite -> added Megace - Stroke prevention: ASA 81mg, and Statin - 30 day event monitor on discharge - Incision sites are C/D/I no warmth or redness noted along the incision - Re-team on Wednesday of next week - Orthostatic Hypotension - D/C HCTZ, Hold his Norvasc if SBP < 110 - Surgical incisional pain => increase Fentanyl patch to 75mcq - Thrombocytosis - obtain Sed rate, C- reactive protein, and d/c Megace - B/L Doppler of lower extremity
[2017-12-27 09:20] LABS: Erythrocyte Sedimentation Rate 56 mm/hr (0-20)
--- NOTE | 2017-12-27 09:46 | VDLE_ITS ---
Reason For Study: Pain RIGHT LEFT GSV is normal. GSV is normal. CFV is compressible, spontaneous, phasic, CFV is compressible, spontaneous, phasic, competent and demonstrates normal competent, and demonstrates normal augmentation. augmentation. FV is compressible, spontaneous, phasic, FV is compressible, spontaneous, phasic, competent and demonstrates normal competent and demonstrates normal augmentation. augmentation. POP V is compressible, spontaneous, phasic, POP V is compressible, spontaneous, phasic, competent and demonstrates normal competent and demonstrates normal augmentation. augmentation. T/P Trunk is compressible. T/P Trunk is compressible. PTV is compressible. PTV is compressible. RT PerV is compressible. LT PerV is compressible. Procedure Hypoechoic, non vascular structure noted Lt Exam performed portable in patient room. Pop Fossa measuring 1.59cm x 3.20cm. A preliminary report was called and/or faxed to Patients RN. Interpretation Summary Deep veins of the lower extremities are bilaterally patent and compressible segmentally. There is no evidence of deep vein thrombosis on either side. Valvular competence appears intact within the proximal deep venous systems bilaterally. The greater saphenous veins appear bilaterally patent and compressible segmentally. A non-vascular, hypoechoic structure is noted in the left popliteal space, measuring 1.59 cm x 3.20 cm. This probably represents a popliteal cyst. Clinical correlation is advised. Ordering Physician: Jazmin Terrazas Referring Physician: Billy De Santiago Performed By: Veronique Ayala, GORDY, RVT
[2017-12-27 10:06] LABS: Pathologist Review Reviewed
--- NOTE | 2017-12-27 10:36 | CASEMGMT ---
Team meeting held. Patient present as well as patient spouse. Collaborating with team, discharge date set for 12/31/17 with plan to continue to monitor lab work and improve patient independence. Patient plans to discharge home with spouse/family at time of discharge. Patient will not have 24hr care at time of discharge. Patient reporting to need a walker set up at time of discharge. Patient aware that insurance update is due on 12/27/17 and that continued stay approval is not guaranteed. Physical therapy recommending for patient to continue with therapy services through Outpatient physical therapy, patient agreeable. Support given. Proposed discharge date: 12/31/17 pending insurance approval. Will continue to follow for discharge planning and support. Divya NICKERSON, AGRICULTURE LABORER
--- NOTE | 2017-12-27 10:39 | CASEMGMT ---
Insurance Clinical information faxed. Pending continued stay approval at this time. Auth#[id number] Divya NICKERSON, STATION SUPERVISOR
--- NOTE | 2017-12-27 15:55 | NURSING ---
duplex completed to ble, negative bernadette ward aware.
--- NOTE | 2017-12-27 18:02 | PCM.PN.HOSP ---
Subjective: Patient was seen and examined. Denies any new complaints. Therapy has been going well. Incisions on his knees are healed. No acute events. Noted that his platelet counts have been increasing. History of elevated platelet counts. Records from that [facility] showed a discharge platelet level was around 252-90 Vitals/I&O's: Vital Signs Temp Pulse Resp BP Pulse Ox 97.5 F L 103 H 18 125/82 H 96 12/27/17 07:38 12/27/17 07:38 12/27/17 07:38 12/27/17 07:38 12/27/17 07:38 Oxygen Delivery Method Room Air Weight: 108.5 kg Body Mass Index (BMI) 33.7 Finger Stick Blood Glucose 237 Intake and Output for Last 24 Hours 12/25/17 12/26/17 12/27/17 23:59 23:59 23:59 Intake Total 360 / 360 Output Total 100 / 100 Balance 260 / 260 General: Alert, Oriented x3, Cooperative, No apparent distress HEENT: Atraumatic, PERRLA, EOMI, Normocephalic Oral: Moist Mucosa Neck: Supple, No JVD, Negative Carotid Bruits Lungs: Clear to auscultation, Normal air movement Cardiovascular: Regular rate, Regular Rhythm, Normal S1, Normal S2, No murmurs Abdomen: Bowel Sounds Present, Soft, Non Tender, Non-Distended, No Hepato-splenomegaly Extremities: No edema, - - Incisions over both knees are clean and dry Skin: No rashes, No breakdown Musculoskeletal: No Tenderness to Palpation of Joints or Extremities Lymphatic: No Cervical, Supraclavicular, or Inguinal Adenopathy Neurological: Cranial nerves II-XII grossly intact Psych/Mental Status: Normal Affect, Appropriate Laboratory Results 12/24/17 05:40: Diff Path Review Reviewed 12/27/17 05:30: WBC 11.5 H, RBC 3.85 L, Hgb 10.5 L, Hct 33.4 L, MCV 86.8, MCH 27.3, MCHC 31.4 L, RDW 13.9, RDW Differential 44.3 H, Plt Count 893 H*, MPV 8.5, Immature Gran % (Auto) 0.300, Neut % (Auto) 57.3, Lymph % (Auto) 32.7, Branch % (Auto) 6.8, Eos % (Auto) 2.7, Baso % (Auto) 0.2, Absolute Neuts (auto) 6.6, Absolute Lymphs (auto) 3.75, Total Counted Not Reportable, Differential Comment COMMENT, Diff Path Review May foll 12/27/17 05:30: Sodium 134 L, Potassium 4.4, Chloride 100, Carbon Dioxide 26.0, Anion Gap 8, BUN 15, Creatinine 0.69 L, Estim Creat Clear Calc 138.99, Est GFR (MDRD) Af Amer 153, Est GFR (MDRD) Non-Af 126, BUN/Creatinine Ratio 21.8 H, Glucose 107 H, Calcium 8.6, Magnesium 1.8 12/27/17 05:30: ESR 56 H 12/27/17 05:30: C-React Prot Ext Range 27.50 H Current Medications Hydrocodone Bitart/Acetaminophen ([place] 5mg-325mg) 1 tablet PO Q4H PRN PRN PRN Reason: SEVERE PAIN (6-10/10) Last Admin: 12/27/17 14:49 Dose: 1 tablet Amlodipine Besylate (Norvasc) 10 mg PO DAILY [facility] Last Admin: 12/27/17 07:44 Dose: 10 mg Ascorbic Acid (Vitamin C) 500 mg PO BIDCM [facility] Last Admin: 12/27/17 16:55 Dose: 500 mg Atorvastatin Calcium (Lipitor) 80 mg PO QHS [facility] Last Admin: 12/26/17 20:36 Dose: 80 mg Bisacodyl (Dulcolax) 10 mg RECTAL .PRN X 1 PRN PRN Reason: Constipation Citalopram Hydrobromide (Celexa) 40 mg PO DAILY [facility] Last Admin: 12/27/17 07:43 Dose: 40 mg Enoxaparin Sodium (Lovenox) 40 mg SC DAILY@0600 [facility] Last Admin: 12/27/17 05:05 Dose: 40 mg Fentanyl (Duragesic Patch) 75 mcg TRANSDERM. Q72H [facility] Last Admin: 12/26/17 09:55 Dose: 75 mcg Gabapentin (Neurontin) 300 mg PO QHS [facility] Last Admin: 12/26/17 20:36 Dose: 300 mg Hydrocortisone Acetate (Anusol Hc) 25 mg RECTAL BID PRN PRN PRN Reason: Hemorrhoids Last Admin: 12/23/17 14:39 Dose: 25 mg Magnesium Hydroxide (Milk Of Magnesia) 30 ml PO .PRN X 1 PRN PRN Reason: Constipation Last Admin: 12/17/17 20:43 Dose: 30 ml Nutritional Formula (Lactose Free) (Ensure Enlive) 120 ml PO 4X/DAY [facility] Last Admin: 12/27/17 16:55 Dose: 120 ml Ondansetron HCl (Zofran Odt) 4 mg PO Q6H PRN PRN PRN Reason: NAUSEA Last Admin: 12/21/17 08:08 Dose: 4 mg Polyethylene Glycol (Miralax) 17 gm PO DAILY [facility] Last Admin: 12/27/17 07:43 Dose: 17 gm Senna/Docusate Sodium (Senokot-S, Zeenat-Colace) 2 tablet PO BID [facility] Last Admin: 12/27/17 07:43 Dose: 2 tablet Medical Necessity - Tobacco Use Smoking Status: Never smoker Tobacco Use: Non-smoker Assessment/Plan 57-year-old male with past medical history of CVA(2016), adjustment disorder with depression after CVA, hypertension, hyperlipidemia, degenerative disc disease(neck), borderline DM type 2, BPH, who is status post bilateral total knee replacement admitted on 12/14/17 for acute rehab. Patient had bilateral total knee replacement surgery done on 12/08/2017 at the [facility]. 1. Debility due to recent bilateral knee replacement, improved with ongoing physical and occupational therapy 2. Thrombocytosis, likely reactive vs related to probable iron deficiency anemia, check for iron deficiency, hematology consult, CBC D in a.m. 3. Anemia, postop, hemoglobin stable around 10.5, will check for iron deficiency, 4. s/p Bilateral knee replacement, pain is fairly controlled, on oxycodone, fentanyl patch, gabapentin, will continue with therapy 5. Constipation related to use of opiate medication, on senna depreciated, MiraLAX, encourage use of bisacodyl 6. Hypertension, controlled, continue amlodipine, HCTZ, would continue to monitor. 7. Hyperlipidemia, on statin 8. Osteoarthritis of the knees/neck 9.. Anxiety/depression, on Celexa 10. History of CVA, on aspirin and statin 11. DVT PPx - Lovenox SC Code Visit Inpatient E&M: 93715 Subs Hosp L2
--- NOTE | 2017-12-27 18:09 | PN_ITS ---
Subjective: Patient was seen and examined. Denies any new complaints. Therapy has been going well. Incisions on his knees are healed. No acute events. Noted that his platelet counts have been increasing. History of elevated platelet counts. Records from that [facility] showed a discharge platelet level was around 252-90 Vitals/I&O's: Vital Signs Temp Pulse Resp BP Pulse Ox 97.5 F L 103 H 18 125/82 H 96 12/27/17 07:38 12/27/17 07:38 12/27/17 07:38 12/27/17 07:38 12/27/17 07:38 Oxygen Delivery Method Room Air Weight: 108.5 kg Body Mass Index (BMI) 33.7 Finger Stick Blood Glucose 237 Intake and Output for Last 24 Hours 12/25/17 12/26/17 12/27/17 23:59 23:59 23:59 Intake Total 360 / 360 Output Total 100 / 100 Balance 260 / 260 General: Alert, Oriented x3, Cooperative, No apparent distress HEENT: Atraumatic, PERRLA, EOMI, Normocephalic Oral: Moist Mucosa Neck: Supple, No JVD, Negative Carotid Bruits Lungs: Clear to auscultation, Normal air movement Cardiovascular: Regular rate, Regular Rhythm, Normal S1, Normal S2, No murmurs Abdomen: Bowel Sounds Present, Soft, Non Tender, Non-Distended, No Hepato- splenomegaly Extremities: No edema, - - Incisions over both knees are clean and dry Skin: No rashes, No breakdown Musculoskeletal: No Tenderness to Palpation of Joints or Extremities Lymphatic: No Cervical, Supraclavicular, or Inguinal Adenopathy Neurological: Cranial nerves II-XII grossly intact Psych/Mental Status: Normal Affect, Appropriate Laboratory Results 12/24/17 05:40: Diff Path Review Reviewed 12/27/17 05:30: WBC 11.5 H, RBC 3.85 L, Hgb 10.5 L, Hct 33.4 L, MCV 86.8, MCH 27.3, MCHC 31.4 L, RDW 13.9, RDW Differential 44.3 H, Plt Count 893 H*, MPV 8.5 , Immature Gran % (Auto) 0.300, Neut % (Auto) 57.3, Lymph % (Auto) 32.7, [place] % (Auto) 6.8, Eos % (Auto) 2.7, Baso % (Auto) 0.2, Absolute Neuts (auto) 6.6, Absolute Lymphs (auto) 3.75, Total Counted Not Reportable, Differential Comment COMMENT, Diff Path Review May foll 12/27/17 05:30: Sodium 134 L, Potassium 4.4, Chloride 100, Carbon Dioxide 26.0, Anion Gap 8, BUN 15, Creatinine 0.69 L, Estim Creat Clear Calc 138.99, Est GFR ( MDRD) Af Amer 153, Est GFR (MDRD) Non-Af 126, BUN/Creatinine Ratio 21.8 H, Glucose 107 H, Calcium 8.6, Magnesium 1.8 12/27/17 05:30: ESR 56 H 12/27/17 05:30: C-React Prot Ext Range 27.50 H Current Medications Hydrocodone Bitart/Acetaminophen ([place] 5mg-325mg) 1 tablet PO Q4H PRN PRN PRN Reason: SEVERE PAIN (6-10/10) Last Admin: 12/27/17 14:49 Dose: 1 tablet Amlodipine Besylate (Norvasc) 10 mg PO DAILY [facility] Last Admin: 12/27/17 07:44 Dose: 10 mg Ascorbic Acid (Vitamin C) 500 mg PO BIDCM [facility] Last Admin: 12/27/17 16:55 Dose: 500 mg Atorvastatin Calcium (Lipitor) 80 mg PO QHS [facility] Last Admin: 12/26/17 20:36 Dose: 80 mg Bisacodyl (Dulcolax) 10 mg RECTAL .PRN X 1 PRN PRN Reason: Constipation Citalopram Hydrobromide (Celexa) 40 mg PO DAILY [facility] Last Admin: 12/27/17 07:43 Dose: 40 mg Enoxaparin Sodium (Lovenox) 40 mg SC DAILY@0600 [facility] Last Admin: 12/27/17 05:05 Dose: 40 mg Fentanyl (Duragesic Patch) 75 mcg TRANSDERM. Q72H [facility] Last Admin: 12/26/17 09:55 Dose: 75 mcg Gabapentin (Neurontin) 300 mg PO QHS [facility] Last Admin: 12/26/17 20:36 Dose: 300 mg Hydrocortisone Acetate (Anusol Hc) 25 mg RECTAL BID PRN PRN PRN Reason: Hemorrhoids Last Admin: 12/23/17 14:39 Dose: 25 mg Magnesium Hydroxide (Milk Of Magnesia) 30 ml PO .PRN X 1 PRN PRN Reason: Constipation Last Admin: 12/17/17 20:43 Dose: 30 ml Nutritional Formula (Lactose Free) (Ensure Enlive) 120 ml PO 4X/DAY [facility] Last Admin: 12/27/17 16:55 Dose: 120 ml Ondansetron HCl (Zofran Odt) 4 mg PO Q6H PRN PRN PRN Reason: NAUSEA Last Admin: 12/21/17 08:08 Dose: 4 mg Polyethylene Glycol (Miralax) 17 gm PO DAILY [facility] Last Admin: 12/27/17 07:43 Dose: 17 gm Senna/Docusate Sodium (Senokot-S, Zeenat-Colace) 2 tablet PO BID [facility] Last Admin: 12/27/17 07:43 Dose: 2 tablet Medical Necessity - Tobacco Use Smoking Status: Never smoker Tobacco Use: Non-smoker Assessment/Plan 57-year-old male with past medical history of CVA(2016), adjustment disorder with depression after CVA, hypertension, hyperlipidemia, degenerative disc disease(neck), borderline DM type 2, BPH, who is status post bilateral total knee replacement admitted on 12/14/17 for acute rehab. Patient had bilateral total knee replacement surgery done on 12/08/2017 at the [facility]. 1. Debility due to recent bilateral knee replacement, improved with ongoing physical and occupational therapy 2. Thrombocytosis, likely reactive vs related to probable iron deficiency anemia, check for iron deficiency, hematology consult, CBC D in a.m. 3. Anemia, postop, hemoglobin stable around 10.5, will check for iron deficiency , 4. s/p Bilateral knee replacement, pain is fairly controlled, on oxycodone, fentanyl patch, gabapentin, will continue with therapy 5. Constipation related to use of opiate medication, on senna depreciated, MiraLAX, encourage use of bisacodyl 6. Hypertension, controlled, continue amlodipine, HCTZ, would continue to monitor. 7. Hyperlipidemia, on statin 8. Osteoarthritis of the knees/neck 9.. Anxiety/depression, on Celexa 10. History of CVA, on aspirin and statin 11. DVT PPx - Lovenox SC Code Visit Inpatient E&M: 64327 Subs Hosp L2
--- NOTE | 2017-12-27 18:13 | NURSING ---
dr frederick here to see patient, new orders received.
[2017-12-27 19:25] LABS: Ferritin 638 ng/mL (26-388); Iron 37 ug/dL (65-175); Iron Binding Capacity,Total 226 ug/dL (250-450); PERCENT IRON SATURATION 16.4 % (15.0-55.0)
[2017-12-27 19:59] VITALS: BP 217/74; PULSE 100; RESP 12; TEMP 36.6; O2SAT 98
[2017-12-27] MEDS: Gabapentin 300 MG Capsule PO (20:40)
[2017-12-27] MEDS: Atorvastatin Calcium 40 MG Tablet 80 MG PO (20:40)
[2017-12-28] MEDS: HYDROcodone Bitartrate/Apap 5/325 Tablet PO ×5 (00:45→17:45)
[2017-12-28] MEDS: Enoxaparin 40 MG/0.4 ML Syringe SC (05:11)
[2017-12-28 07:37] VITALS: BP 127/76; PULSE 117; RESP 20; TEMP 36.7; O2SAT 95
[2017-12-28] MEDS: Citalopram 40 MG TABLET PO (07:41)
[2017-12-28] MEDS: Ascorbic Acid 500 MG Tablet PO ×2 (07:41→16:44)
[2017-12-28] MEDS: Aspirin 81 MG TAB.CHEW PO (07:42)
[2017-12-28] MEDS: Senna/Docusate Sodium 1 Tablet 2 TABLET PO (07:42)
[2017-12-28] MEDS: amLODIPine 10 MG Tablet PO (07:42)
--- NOTE | 2017-12-28 09:15 | CASEMGMT ---
Insurance Continued stay denied with last cover day being 12/27/17 with patient to discharge or financial responsibility to begin on 12/28/17. Auth#[id number] Divya NICKERSON, CONFERENCE SERVICES COORDINATOR
--- NOTE | 2017-12-28 09:16 | CASEMGMT ---
Social Work Spoke with patient. This psych social worker communicating that continued stay has been denied with a last cover day of 12/27/17 and patient to discharge on or financial responsibility to begin on 12/28/17. Patient plans to discharge on 12/28/17 to home with spouse. Physical therapy recommending for patient to have continued therapy through outpatient physical therapy. Patient is agreeable to recommendation and requesting for outpatient physical therapy to be set up through [facility]. This psych social worker educating patient that an order will be faxed to [facility] and then [facility] will contact patient to set up an appointment. Patient also identifying a need for a walker, patient does not have a preference of [employer] to be utilized. This psych social worker offering to contact patient spouse to communicate discharge date and plan, patient declining and reporting to be planning to contact patient spouse. Support given. Telephone call to Destiny Werner. This psych social worker making referral for front wheeled walker. Destiny to deliver walker to patient room prior to discharge. Order faxed. faxed order for outpatient physical therapy to [facility]. Proposed discharge date: 12/28/17 PLAN: Discharge home with spouse and outpatient physical therapy. Divya NICKERSON, CULINARY DIRECTOR
[2017-12-28 09:54] LABS: Pathologist Review Reviewed
--- NOTE | 2017-12-28 11:20 | PCM.RU.DC ---
Rehab Discharge Summary DATE OF ADMISSION: 12/13/17 DATE OF DISCHARGE: 12/28/17 - Rehab Diagnosis Bilateral TKR Discharge Diet: No Restrictions Discharge Activity: May Not Drive, May not drive while taking narcotic pain medications., May Shower, Use Walker, - - do not soak in a tub bath until cleared by surgeon Weight Bearing Status: Weight bearing as tolerated Call your doctor if your incision/area has: Sudden Increased Bleeding, Increased Pain/ Swelling, Increased Redness, Foul Smelling Discharge, Swelling at the incision site Call your doctor if you observe: Fever of 101 or Higher, Coldness, Increased Pain, Numbness or Tingling, Change in Color, Inability to urinate, Inability to have a bowel movement, Using more than one pad per hour, Shortness of breath, Dizziness, Fainting spells, Swelling in the ankles, Chest pain, Prolonged hiccoughing, Increased palpitations (irregular heartbeat), Calf discomfort, Uncontrolled pain Home Medications: Medications to take at Discharge Citalopram Hydrobromide [Citalopram HBr] 40 mg PO DAILY 07/05/16 Atorvastatin Calcium [Lipitor] 80 mg PO QHS 12/13/17 Amlodipine [Norvasc] 10 mg PO DAILY #30 tab 12/28/17 Ascorbic Acid [Vitamin C] 500 mg PO BIDCM #60 tab 12/28/17 Aspirin [Aspirin, Baby] 81 mg PO DAILY@0800 tab.chew 12/28/17 Docusate Sodium [Colace] 200 mg PO BID #60 cap 12/28/17 Ferrous Gluconate 325 mg PO BIDCM #60 tab 12/28/17 Gabapentin [Neurontin] 300 mg PO QHS #30 cap 12/28/17 Hydrocodone Bitart/Apap 5-325 [[place] 5/325] 1 tab PO Q4H PRN PRN #42 tab 12/28/17 Hydrocortisone [Anusol Hc] 25 mg RECTAL BID PRN PRN #20 suppos. 12/28/17 Polyethylene Glycol 3350 [Miralax] 17 gm PO DAILY #30 packet 12/28/17 Senna [Senokot] 2 tab PO BID #60 tab 12/28/17 Following Prescrptions Were Given to Patient: Hydrocodone Bitart/Apap 5-325 [[place] 5/325] 1 tab PO Q4H PRN PRN #42 tab PRN Reason: Severe Pain (6-06/22) Amlodipine [Norvasc] 10 mg PO DAILY #30 tab Gabapentin [Neurontin] 300 mg PO QHS #30 cap Hydrocortisone [Anusol Hc] 25 mg RECTAL BID PRN PRN #20 suppos. PRN Reason: Hemorrhoids Polyethylene Glycol 3350 [Miralax] 17 gm PO DAILY #30 packet Ascorbic Acid [Vitamin C] 500 mg PO BIDCM #60 tab Docusate Sodium [Colace] 200 mg PO BID #60 cap Ferrous Gluconate 325 mg PO BIDCM #60 tab Senna [Senokot] 2 tab PO BID #60 tab Primary Care Physician: Billy De Santiago MD [Primary Care Provider] - Please Follow Up With: [facility] - Outpatient Physical Therapy Please Follow Up With: Dr. De Santiago Please Follow Up With: Dr. 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 He has had ongoing knee pain and underwent a bilateral total knee replacement surgery performed 12/08/17 at the [facility] performed by Dr. Zamora. The postoperative course was uneventful however he did experience some pain. He now presents to [facility] acute rehab unit for rehabilitation in order to return home to his previous level of functional independence. He lives in a two-story house with his family as above, he will need to be able to manage stairs as well as travel to his basement. With Physical therapy, He is supervision for transfers, bed mobility, and getting on and off the toilet. He is able to walk about 300 to 600 feet at standby assist, or with the therapist walking a few steps behind. He is able to go up and down a flight of stairs using both hand rails at stand by assist. With Occupational therapy, he is supervision for personal care. With Nursing, he continues to have Thrombocytosis, his Sed Rate is 56, and his C-Reactive Protein is 27.50. In the records sent with the patient he had an elevated Platelet count of 391 on 11/29/17, requested additional Lab records from facility where his surgery was performed, Oncology was consulted for his Reactive Thrombocytosis, he was started on Iron gluconate with vitamin C 325mg, BID, she feels it is caused by his being anemic, he will follow up with them as an outpatient. He is having pain in his left calf also will obtain B/L Doppler of his lower extremities, which was negative for a DVT. He will be discharged home, with outpatient Physical therapy, all necessary medical equipment needed and his follow up appointments. Meaningful Use Info Meaningful Use Diagnoses (Choose all that apply): None applicable
--- NOTE | 2017-12-28 11:28 | DS.PCM_ITS ---
Rehab Discharge Summary DATE OF ADMISSION: 12/13/17 DATE OF DISCHARGE: 12/28/17 - Rehab Diagnosis Bilateral TKR Discharge Diet: No Restrictions Discharge Activity: May Not Drive, May not drive while taking narcotic pain medications., May Shower, Use Walker, - - do not soak in a tub bath until cleared by surgeon Weight Bearing Status: Weight bearing as tolerated Call your doctor if your incision/area has: Sudden Increased Bleeding, Increased Pain/ Swelling, Increased Redness, Foul Smelling Discharge, Swelling at the incision site Call your doctor if you observe: Fever of 101 or Higher, Coldness, Increased Pain, Numbness or Tingling, Change in Color, Inability to urinate, Inability to have a bowel movement, Using more than one pad per hour, Shortness of breath, Dizziness, Fainting spells, Swelling in the ankles, Chest pain, Prolonged hiccoughing, Increased palpitations (irregular heartbeat), Calf discomfort, Uncontrolled pain Home Medications: Medications to take at Discharge Citalopram Hydrobromide [Citalopram HBr] 40 mg PO DAILY 07/05/16 Atorvastatin Calcium [Lipitor] 80 mg PO QHS 12/13/17 Amlodipine [Norvasc] 10 mg PO DAILY #30 tab 12/28/17 Ascorbic Acid [Vitamin C] 500 mg PO BIDCM #60 tab 12/28/17 Aspirin [Aspirin, Baby] 81 mg PO DAILY@0800 tab.chew 12/28/17 Docusate Sodium [Colace] 200 mg PO BID #60 cap 12/28/17 Ferrous Gluconate 325 mg PO BIDCM #60 tab 12/28/17 Gabapentin [Neurontin] 300 mg PO QHS #30 cap 12/28/17 Hydrocodone Bitart/Apap 5-325 [[place] 5/325] 1 tab PO Q4H PRN PRN #42 tab Hydrocortisone [Anusol Hc] 25 mg RECTAL BID PRN PRN #20 suppos. 12/28/17 Polyethylene Glycol 3350 [Miralax] 17 gm PO DAILY #30 packet 12/28/17 Senna [Senokot] 2 tab PO BID #60 tab 12/28/17 Following Prescrptions Were Given to Patient: Hydrocodone Bitart/Apap 5-325 [[place] 5/325] 1 tab PO Q4H PRN PRN #42 tab PRN Reason: Severe Pain (6-06/22) Amlodipine [Norvasc] 10 mg PO DAILY #30 tab Gabapentin [Neurontin] 300 mg PO QHS #30 cap Hydrocortisone [Anusol Hc] 25 mg RECTAL BID PRN PRN #20 suppos. PRN Reason: Hemorrhoids Polyethylene Glycol 3350 [Miralax] 17 gm PO DAILY #30 packet Ascorbic Acid [Vitamin C] 500 mg PO BIDCM #60 tab Docusate Sodium [Colace] 200 mg PO BID #60 cap Ferrous Gluconate 325 mg PO BIDCM #60 tab Senna [Senokot] 2 tab PO BID #60 tab Primary Care Physician: Billy De Santiago MD [Primary Care Provider] - Please Follow Up With: [facility] - Outpatient Physical Therapy Please Follow Up With: Dr. De Santiago Please Follow Up With: Dr. 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 Zamora. The postoperative course was uneventful however he did experience some pain. He now presents to [facility] acute rehab unit for rehabilitation in order to return home to his previous level of functional independence. He lives in a two-story house with his family as above, he will need to be able to manage stairs as well as travel to his basement. With Physical therapy, He is supervision for transfers, bed mobility, and getting on and off the toilet. He is able to walk about 300 to 600 feet at standby assist, or with the therapist walking a few steps behind. He is able to go up and down a flight of stairs using both hand rails at stand by assist. With Occupational therapy, he is supervision for personal care. With Nursing, he continues to have Thrombocytosis, his Sed Rate is 56, and his C- Reactive Protein is 27.50. In the records sent with the patient he had an elevated Platelet count of 391 on 11/29/17, requested additional Lab records from facility where his surgery was performed, Oncology was consulted for his Reactive Thrombocytosis, he was started on Iron gluconate with vitamin C 325mg, BID, she feels it is caused by his being anemic, he will follow up with them as an outpatient. He is having pain in his left calf also will obtain B/L Doppler of his lower extremities, which was negative for a DVT. He will be discharged home, with outpatient Physical therapy, all necessary medical equipment needed and his follow up appointments. Meaningful Use Info Meaningful Use Diagnoses (Choose all that apply): None applicable
--- NOTE | 2017-12-28 11:28 | PCM.DC ---
- Discharge Diagnoses Reason(s) for Visit for Discharge Instructions: Bilateral TKR You will use the following diet at home:: Regular Your food should be the consistency of: Regular Your liquids should be the consistency of: Regular/Thin Discharge Activity: May Not Drive, May not drive while taking narcotic pain medications., May Shower, Use Walker, - - do not soak in a tub bath until cleared by surgeon Weight Bearing Status: Weight bearing as tolerated Call your doctor if your incision/area has: Sudden Increased Bleeding, Increased Pain/ Swelling, Increased Redness, Foul Smelling Discharge, Swelling at the incision site Call your doctor if you observe: Fever of 101 or Higher, Coldness, Increased Pain, Numbness or Tingling, Change in Color, Inability to urinate, Inability to have a bowel movement, Using more than one pad per hour, Shortness of breath, Dizziness, Fainting spells, Swelling in the ankles, Chest pain, Prolonged hiccoughing, Increased palpitations (irregular heartbeat), Calf discomfort, Uncontrolled pain Allergies/Adverse Reactions: Allergies iohexol [From Omnipaque] Allergy (Verified 12/13/17 22:05) Rash Medications to take at Discharge Citalopram Hydrobromide [Citalopram HBr] 40 mg PO DAILY 07/05/16 Atorvastatin Calcium [Lipitor] 80 mg PO QHS 12/13/17 Amlodipine [Norvasc] 10 mg PO DAILY #30 tab 12/28/17 Ascorbic Acid [Vitamin C] 500 mg PO BIDCM #60 tab 12/28/17 Aspirin [Aspirin, Baby] 81 mg PO DAILY@0800 tab.chew 12/28/17 Docusate Sodium [Colace] 200 mg PO BID #60 cap 12/28/17 Ferrous Gluconate 325 mg PO BIDCM #60 tab 12/28/17 Gabapentin [Neurontin] 300 mg PO QHS #30 cap 12/28/17 Hydrocodone Bitart/Apap 5-325 [[place] 5/325] 1 tab PO Q4H PRN PRN #42 tab 12/28/17 Hydrocortisone [Anusol Hc] 25 mg RECTAL BID PRN PRN #20 suppos. 12/28/17 Polyethylene Glycol 3350 [Miralax] 17 gm PO DAILY #30 packet 12/28/17 Senna [Senokot] 2 tab PO BID #60 tab 12/28/17 The following prescriptions were given: Hydrocodone Bitart/Apap 5-325 [[place] 5/325] 1 tab PO Q4H PRN PRN #42 tab PRN Reason: Severe Pain (-06/22) Amlodipine [Norvasc] 10 mg PO DAILY #30 tab Gabapentin [Neurontin] 300 mg PO QHS #30 cap Hydrocortisone [Anusol Hc] 25 mg RECTAL BID PRN PRN #20 suppos. PRN Reason: Hemorrhoids Polyethylene Glycol 3350 [Miralax] 17 gm PO DAILY #30 packet Ascorbic Acid [Vitamin C] 500 mg PO BIDCM #60 tab Docusate Sodium [Colace] 200 mg PO BID #60 cap Ferrous Gluconate 325 mg PO BIDCM #60 tab Senna [Senokot] 2 tab PO BID #60 tab Primary Care Physician: Billy De Santiago MD [Primary Care Provider] - Please Follow Up With: [facility] - Outpatient [facility] Please Follow Up With: Dr. De Santiago Please Follow Up With: Dr. Zamora Please Follow Up With: Kelly BUSCH When: Hematology Proposed Discharge Date: 12/28/17
--- NOTE | 2017-12-28 11:28 | NURSING ---
[facility] ward from hematology here to see patient will f/u in 2 weeks in office as outpatient recommended ferrous gluconate with vitamin c bid. Bernadette ward aware scant amount of bright red blood noted around stool unable to perform stool occult bernadette ward and dr frederick aware hx of hemorrhoids.
--- NOTE | 2017-12-28 12:13 | ONC.CONS.INP ---
Consult Referring Physician: Dr. Evonne Abraham Subjective Date of Service:: 12/28/17 Chief Complaint: Thrombocytosis History of Present Illness: The patient is a 57 year old male with a history of hypertension, mild remote depression, hyperlipidemia, who is previously functionally independent, lives at home with his and children and is active. He experienced ongoing knee pain and underwent a bilateral total knee replacement surgeries 12/08/17 at the [facility] under the care of Dr. Zamora. The postoperative course was uncomplicated. Transferred to [facility] 12/14/17 for acute rehab. Underwent bilateral lower extremity doppler yesterday which revealed no evidence for DVT. On prophylactic Lovenox. Consult requested by primary team to address finding of thrombocytopenia. Patient reports family history is negative for hematologic disorders including myeloproliferative neoplasms with the exception of an adult son who has hemophilia A and according to patient he has never been told of any aberrancies on CBC. Pre op admits to taking up to 25 tablets of IBU/day x several weeks. Specifically denies weight loss, headaches, abdominal pain and any episodes of bruising or overt bleeding inclusive of melena/hematochezia. Past Medical History: Chronic Problems Depression (Chronic) Benign essential hypertension (Chronic) Low back pain (Chronic) Urinary incontinence (Chronic) Obesity (BMI 30.0-34.9) (Chronic) Elevated PSA (Chronic) recent biopsies done by DR. Monk are negative Past Medical/Surgical History: Past Medical History - Most Recent Inpatient Visit Past Medical History Start: 12/13/17 19:15 Text: Status: Complete Freq: ONCE Protocol: Document 12/13/17 20:37 CAK (Rec: 12/13/17 20:40 CAK [id number]) BMI Required to complete PMH What is Patient's BMI 33.7 Neurologic Medical History Hx Stroke/TIA Yes Hx Dementia/Alzheimer's No Hx Parkinson's Disease No Hx Seizures No Hx Multiple Sclerosis No Hx Migraines No Cardiac Medical History VTE Present on Admission No Hx of Deep Vein Thrombosis/VTE/PE No Hx Hypertension Yes Hx Chest Pain/Angina Yes Hx Heart Attack No Hx Cardiac Surgery/Stents/Etc. No Hx Heart Failure No Hx Pacemaker/AICD No Hx Irregular Heartbeat and/or Afib No Hx Anticoagulant Therapy No Query Text:(Coumadin, Aspirin, Plavix, Xarelto, etc.) Hx Pain in Legs when Walking/Leg Cramps Yes: PAIN IN BOTH FEET Respiratory Medical History Hx COPD No Hx Emphysema No Hx Smoking No Smoking Status Never smoker Hx Smoking Cessation Counseling No: non-smoker Hx Smoking Exposure No Hx Tobacco Use in last 12 months No Hx of Pipe Smoking No Hx Sleep Apnea Yes: NEVER BEEN CHECKED, SUSPECTED CPAP No BIPAP No STOP Results Positive GI Medical History Hx Ulcer No Hx Hepatitis No Hx Cirrhosis No Hx GI Bleed No Hx Unplanned Weight Loss No Genitourinary Medical History Indwelling Catheter in Place on Arrival/ No Admission Hx Renal Disease No Hx Dialysis No Musculoskeletal History Hx Arthritis No Hx Rheumatoid Arthritis No Endocrine Medical History Hx Diabetes Yes Hx Thyroid Disease No Hematologic Medical History Hx of Blood Transfusion No Hx of Transfusion in last 3 Months No Ever experience any problems with No transfusion(s)? Hx of Preganancy in last 3 Months N/A Nurse Filling Out Transfusion & CKAYLOR Questions: Date: 12/13/17 Time: 20:39 Psycho/Social Medical History Hx Depression Yes Hx Anxiety Yes Hx Behavior Disorder No Hx Alcohol Use No Hx Substance Use No Other Medical History Hx Blood Disorders No Hx Anemia No Hx Cancer No: TESTED FOR PROSTATE CANCER Hx Drug Resistant Organism No Wound/Pressure Injury Present on Arrival No /Admission Query Text:If yes, chart assessment in Shift/Clinical Findings Central Line/PICC/VAD Present on Arrival No /Admission Antibiotics within last 7 days? No Methicillin Resistant Staphylococcus aureus Screening Active MRSA No Risk for Readmission Number of Risk Factors 4 At Risk for Readmission Patient is At Risk For Readmission Patient is eligible for Call Back Y Maternal Family History: - - His mother of a brain aneurysm, age 65 Paternal Family History: Cancer - bone and lung, age 75, - - Social History Lives: Spouse/ Significant Other Smoking Status: Never smoker Tobacco Use: Non-smoker Alcohol: Occasional Drugs: None Allergies/Adverse Reactions: Allergy/AdvReac Type Severity Reaction Status Date / Time iohexol [From Omnipaque] Allergy Rash Verified 12/13/17 22:05 Home Medications Medication Instructions Recorded Citalopram Hydrobromide 40 mg PO DAILY 07/05/16 [Citalopram HBr] Atorvastatin Calcium [Lipitor] 80 mg PO QHS 12/13/17 Amlodipine [Norvasc] 10 mg PO DAILY #30 tab 12/28/17 Ascorbic Acid [Vitamin C] 500 mg PO BIDCM #60 tab 12/28/17 Aspirin [Aspirin, Baby] 81 mg PO DAILY@0800 tab.chew 12/28/17 Docusate Sodium [Colace] 200 mg PO BID #60 cap 12/28/17 Ferrous Gluconate 325 mg PO BIDCM #60 tab 12/28/17 Gabapentin [Neurontin] 300 mg PO QHS #30 cap 12/28/17 Hydrocodone Bitart/Apap 5-325 1 tab PO Q4H PRN PRN #42 tab 12/28/17 [[place] 5/325] Hydrocortisone [Anusol Hc] 25 mg RECTAL BID PRN PRN #20 12/28/17 suppos. Polyethylene Glycol 3350 [Miralax] 17 gm PO DAILY #30 packet 12/28/17 Senna [Senokot] 2 tab PO BID #60 tab 12/28/17 Review of Systems Constitutional:: Denies: Fever, Sweats, Weight loss, Appetite change, Chills Cardiovascular:: Denies: Chest pain, Palpitations, Dyspnea on exertion, Orthopnea, PND, Shortness of breath Respiratory: Denies: Cough, Hemoptysis, Shortness of Breath, Wheezing Gastrointestinal:: Denies: Abdominal pain, Nausea, Vomiting, Diarrhea, Constipation, Melena, Hematochezia, Reflux Genitourinary: Denies: Incontinence, Dysuria, Hematuria, Flank pain Musculoskeletal:: Reports: Joint stiffness, - - knees bilat Skin: Denies: Rash, Skin Changes, Wounds Neurological:: Denies: Headache, Dizziness, Numbness, Tingling, Visual changes, Tinnitus, Hearing loss Psychiatric: Denies: Anxiety, Depression, Homicidal Ideations, Suicidal Ideations Vital Signs Height 6 ft 2 in Weight: 239 lb 3.225 oz Weight in Pounds 239.2 lbs Pulse Ox 95 Temperature 98.0 F Pulse Rate [Standing] 70 Pulse Rate [Sitting] 120 Pulse Rate [Lying] 107 Pulse Rate 117 Respiratory Rate 20 Blood Pressure [Standing] 93/76 Blood Pressure [Sitting] 124/81 Blood Pressure [Lying] 132/74 Blood Pressure 127/76 Blood Pressure Position Sitting - Physical Exam General: Alert, Oriented x3, No apparent distress HEENT: Atraumatic, Normocephalic Oropharynx:: Dry mucosa. Negative for: Ulcerated lesions Neck:: Supple, Trachea midline. Negative for: JVD, bilateral Cardiac:: Regular rate, Regular rhythm, Normal S1, Normal S2. Negative for: Murmur Lungs: Clear to auscultation, Excusion symmetrical. Negative for: Rhonchi, Wheezes Abdomen:: Bowel sounds x 4, Soft, Non-tender, Non-distended. Negative for: Hepatosplenomegaly Extremities:: Edema - trace BLE. Negative for: Cyanosis Skin:: - - bilat knees with well healed scars, minimal BLE edema. Negative for: Lesions, Rash, Petechiae, Ecchymosis Psychiatric:: Appropriate affect, Euthymic Lymphatics:: Negative for: Cervical lymphadenopathy, Supraclavicular lymphadenopathy Laboratory Data: Laboratory Tests 12/27/17 12/27/17 Range/Units 05:30 05:30 Diff Path Review Reviewed Iron 37 L (65-175) ug/dL TIBC 226 L (250-450) ug/dL Iron Saturation 16.4 (15.0-55.0) % Ferritin 638 H (26-388) ng/mL Diagnostic Data: Diagnostic Data Chest X-Ray 12/22/17 09:40 IMPRESSION: Stable examination. No acute abnormality is seen. Electronically Signed: Simón Ro MD at 13:36 EDT Tel [phone], Service support , Assessment and Plan Mr. Guerrero is a very pleasant 57 year old man with a past medical history positive for hypertension and hyperlipidemia who underwent bilateral total knee replacements 12/08/17 and was subsequently transferred to [facility] for rehabilitation and care. 1. Thrombocytosis- As evidenced by platelet count of 893,000 today. Presumably reactive in response to trauma imposed by surgery as well as iron deficiency associated with acute blood loss. 2. Anemia in the post operative context- Hgb stable at 10.5. Iron studies reveal deficiency as saturation 16.4%. Recommend he begin PO ferrous gluconate BID with vitamin C on an empty stomach if tolerated. Counseled to continue bowel regimen while on iron. CRP elevated-inflammation is a factor. Would consider stool for guaiac in the ambulatory setting given over-use of IBU of late. Advised against continued over-use of IBU otc. 3. DVT prophylaxis- Recommend continuation of Lovenox prophylactically through day 35 of post operative period. Advised patient to follow up with [facility] 1-2 weeks subsequent to discharge. Will repeat labs at that time. Tatiana Swan, MSN, [employer], AOCNP Medications: Prescriptions This Visit Medication Instructions Recorded Amlodipine [Norvasc] 10 mg PO DAILY 12/13/17 Aspirin E.C. [Ecotrin] mg PO 12/13/17 Atorvastatin Calcium [Lipitor] 80 mg PO QHS 12/13/17 Divalproex (ER) [Depakote ER] mg PO 12/13/17 Lisinopril [Zestril] mg PO 12/13/17 Pantoprazole Sodium [Protonix] 12/13/17 Medications Added to Medication List This Visit Category Date Time Status Aspirin [Aspirin, Baby] Med 12/28/17 08:00 Active 81 mg PO DAILY@0800 Docusate Sodium [Colace] Med 12/28/17 22:00 Active 200 mg PO BID Ferrous Gluconate Med 12/28/17 17:00 Active 325 mg PO BIDCM Senna [Senokot] Med 12/28/17 22:00 Active 2 tablet PO BID Primary Care Provider: Billy De Santiago Referring Provider: - Problem List (1) Thrombocytosis Status: Acute (2) Iron deficiency anemia Status: Acute Qualifiers: Iron deficiency anemia type: other iron deficiency Qualified Code(s): D50.8 - Other iron deficiency anemias (3) DVT prophylaxis Status: Acute
--- NOTE | 2017-12-28 12:20 | NURSING ---
dorie here and delivered walker to patient.
--- NOTE | 2017-12-28 15:19 | CHAPLAIN ---
patient requested that I stop by to see him before he is discharged; pt will be leaving soon; pt expresses thankfulness for support
[2017-12-28] MEDS: Ferrous Gluconate 325 MG Tablet PO (16:44)
--- NOTE | 2017-12-28 18:00 | NURSING ---
both spouse and patient verbalized understanding of discharge instructions. patient discharge home with spouse.
--- NOTE | 2017-12-29 16:21 | CASEMGMT ---
Insurance Notified insurance of patient discharge on 12/28/17 to home with family and outpatient physical therapy. Auth#[id number] Divya NICKERSON, [employer] MACHINIST
== END 2017-12-28 18:02 | disposition home or self-care (01) | DRG 561 ==
PROVIDERS: Internal Medicine; Nurse Practitioner Acute Care; Admitting Provider Psychiatry & Neurology Neurology; Family Provider Family Medicine; PCP Family Medicine; Visit Provider Internal Medicine
DX: Z47.1 Aftercare following joint replacement surgery (principal); Z96.653 Presence of artificial knee joint, bilateral; N40.0 Benign prostatic hyperplasia without lower urinary tract symptoms; I10 Essential (primary) hypertension; E78.5 Hyperlipidemia, unspecified; E11.9 Type 2 diabetes mellitus without complications; F41.8 Other specified anxiety disorders; K59.03 Drug induced constipation; T40.2X5A Adverse effect of other opioids, initial encounter; E66.9 Obesity, unspecified; R79.89 Other specified abnormal findings of blood chemistry; I95.1 Orthostatic hypotension; M47.892 Other spondylosis, cervical region; D50.8 Other iron deficiency anemias; I69.311 Memory deficit following cerebral infarction; Z68.33 Body mass index [BMI] 33.0-33.9, adult; Z71.3 Dietary counseling and surveillance; Z79.899 Other long term (current) drug therapy
CPT/HCPCS: 36415; 71045; 80048; 81001; 82728; 82962; 83540; 83550; 83735; 84100; 85025; 85027; 85652; 86140; 87086; 92606; 93970; 97110; 97116; 97162; 97165; 97530; 97535; 97802

== ENCOUNTER 2017-12-29 12:10 | Inpatient (IN) | payer BC, SELFPAY ==
[2017-12-29] VITALS (7 sets, daily range): BP systolic 88–118; BP diastolic 51–97; PULSE 85–118; RESP 16–21; TEMP 36.6–37.1; O2SAT 93–98; BMI 30.7
--- NOTE | 2017-12-29 13:19 | RAD_ITS ---
STUDY: X-RAY CHEST REASON FOR EXAM: Male, 57 years old. Shortness of breath TECHNIQUE: A single frontal view of the chest was obtained. COMPARISON: December 22, 2017 FINDINGS: The lungs are adequately aerated. There are no focal airspace opacities. There is no demonstrated pleural abnormality. The cardiac silhouette is normal in size. The mediastinum and hilar regions are unremarkable. Normal visualized pulmonary arteries. Normal visualized aortic arch and descending thoracic aorta. There are diffuse degenerative changes of the visualized spine. There are surgical changes in the cervical spine. The visualized ribs, clavicles, and shoulders are unremarkable. There is no demonstrated abnormality of the visualized upper abdomen. RAD/Chest 1 View (Portable) IMPRESSION: No acute cardiopulmonary abnormalities or changes. Electronically Signed: Dorys Madden MD at 13:56 EDT Tel Direct: [phone], Service support ,
--- NOTE | 2017-12-29 13:19 | EKG12_ITS ---
Test Reason : KNEE PAIN Blood Pressure : / mmHG Vent. Rate : 093 BPM Atrial Rate : 093 BPM P-R Int : 136 ms QRS Dur : 106 ms QT Int : 362 ms P-R-T Axes : 043 013 020 degrees QTc Int : 450 ms Normal sinus rhythm Normal ECG Confirmed by ZEUS SHELBY, DANNY ([id number]), book editor GLENN HENNING ([id number]) on 01/04/2018 3:02:33 PM Referred By: NETTE Confirmed By:DANNY SCHULZ MD
[2017-12-29] MEDS: Morphine 4 MG/ML Syringe IV ×4 (13:40→18:52)
[2017-12-29] MEDS: Ondansetron 4 MG/2 ML Vial IV (13:40)
[2017-12-29 14:01] LABS: Absolute Lymphocyte Count 1.68 X10^3/ul (0.83-4.51); Absolute Neutrophil Count 8.1 X10^3/uL (2.0-7.7); Basophil# 0.01 X10^3/uL; Basophil% 0.1 % (0-1); Eosinophil# 0.12 X10^3/uL; Eosinophils% 1.1 % (0-5); Hematocrit 30.9 % (40-54); Hemoglobin 9.9 g/dl (13.0-16.5); Lymphocyte # 1.68 X10^3/ul (4.0); Lymphocyte % 15.9 % (19-41); Mean Corpuscular Hgb 27.7 pg (27.0-32.0); Mean Corpuscular Volume 86.6 fL (80-94); Mean Platelet Vol. 8.5 fl (6.2-12.0); Monocyte# 0.68 X10^3/uL; Monocyte% 6.4 % (0-10); Neutrophil # 8.06 X10^3/uL (2.7-7.7); Neutrophil % 76.2 % (47-70); Platelet Count 714 K/mm3 (150-450); RBC Distribution Width SD 44.2 fl (35.1-43.9); Red Blood Count 3.57 M/mm3 (4.6-6.2); White Blood Count 10.6 K/mm3 (4.4-11.0)
[2017-12-29 14:03] LABS: POSITIVE COUNT NO; POSITIVE DIFFERENTIAL NO; POSITIVE MORPHOLOGY NO
[2017-12-29 14:10] LABS: Anion Gap 6 (5-15); BUN 19 mg/dL (7-18); BUN/Creat Ratio 20.9 RATIO (10-20); Chloride 102 mmol/L (98-107); Creatinine, Serum 0.91 mg/dL (0.70-1.30); EST Glomerular Filtration Rate 91 mL/min (>60); Est Glom Filt Rate - Afr Amer 111 mL/min (>60); Estimated Creatinine Clearance 105.38 ml/min; Glucose 98 mg/dL (74-106); Potassium 4.1 mmol/L (3.5-5.1); Sodium Level 134 mmol/L (136-145)
--- NOTE | 2017-12-29 14:14 | CT_ITS ---
STUDY: CTA CHEST REASON FOR EXAM: Male, 57 years old. Shortness of breath RADIATION DOSAGE (If Supplied By Facility): CTDIvol = ( 24.69 ) mGy, DLP = ( 1614.27 ) mGycm TECHNIQUE: The examination was performed with the intravenous administration of 125 ml of Isovue 370 contrast material. Post-processing of the angiographic images was performed, with multiplanar reformation and 3D reconstruction. Individualized dose optimization techniques were used for this CT. COMPARISON: Chest radiograph from the same day FINDINGS: Normal enhancement of the main pulmonary artery and right and left pulmonary arteries without filling defects. There is limited enhancement of the bilateral peripheral pulmonary arteries. The thoracic aorta is unremarkable. There is no demonstrated aortic dissection. The heart is normal in size. The mediastinum is unremarkable. The hilar regions are unremarkable. The airways are unremarkable. There is a calcified granuloma in the periphery of the left upper lobe. There are increased markings in the dependent aspects of both lungs. There is no demonstrated pleural abnormality. The soft tissues are unremarkable. There are mild degenerative changes in the visualized spine. There is a small hiatal hernia. No acute abnormalities are seen in the upper abdomen. CT/CTA Chest W/WO Contrast IMPRESSION: There is no evidence of pulmonary embolism in the main pulmonary arteries. The peripheral branches are not adequately evaluated due to suboptimal contrast bolus and breathing motion artifact. There is dependent atelectasis in both lungs. There are no focal parenchymal abnormalities. There is no pleural effusion or significant lymphadenopathy. Electronically Signed: Dorys Madden MD at 16:08 EDT Tel Direct: [phone], Service support ,
--- NOTE | 2017-12-29 14:23 | ED.DCSUM_ITS ---
- ER Visit Summary Date of Service: 12/29/17 Chief Complaint: Bilateral knee pain History of Present Illness: The patient is a 57 M presenting with bilateral knee pain. Patient was at his orthopedic surgeon office today. He states he was nauseated and dizzy and they advised him to come to the ED. He has had bilateral knee replacement December [address] Zamora. He was just discharged from rehab yesterday. He states that an ultrasound yesterday of his lower extremities which showed no evidence of DVT. He denies chest pain or shortness of breath. He states that he has bilateral knee pain, nausea, dizziness. Physical Examination: Vitals are stable. Patient is afebrile. Alert no acute distress. HEENT exam is unremarkable. Neck is supple. Lungs are clear and equal bilaterally. Heart is regular rate and rhythm. Abdomen is soft nontender nondistended. Extremities bilateral knee incisions clean dry intact with no erythema or warmth. He is able to range both knees to 45?. Normal distal pulses. Skin is warm and dry. No focal neurologic deficit. Remainder of exam is unremarkable. Emergency Department Course and Treatment: EKG is sinus rate of 93 with no acute ischemic changes. CBC normal except hemoglobin 9.9. Previous 10.5, 2 days ago. Chemistries sodium 134, BUN 19. Troponin is negative. Patient given morphine, Zofran IV. Chest x-ray shows no acute process. Stool is guaiac positive. CTA chest shows no obvious PE, suboptimal. Discussed with Dr. Zamora. He states patient had x-rays of his knees yesterday does not feel these need to be repeated. He had venous doppler yesterday which was negative. He was seen by the nurse practitioner today with no concern for infection. Discussed with Dr. Jensen who will see him in consultation. Discussed with Dr. Bustamante who will admit the patient. Disposition: Admission Impression: Lower GI bleed, dizziness; status post bilateral knee replacement This note was generated with [employer] dictation software. It may contain incorrect words, spelling, and punctuation that were not noted in review of the chart prior to signing ED Disposition - Plan for ED Patient: Chief Complaint: Lower Extremity Injury Referrals: Billy De Santiago MD [Primary Care Provider] -
--- NOTE | 2017-12-29 16:40 | NURSING ---
MED SURG GI BLEED, ANEMIA GBARUK
--- NOTE | 2017-12-29 17:47 | PCM.CONS.GEN ---
Reason for Consult Date of Consultation: 12/29/17 History of Present Illness: The patient is a 57 year old M who is 3 weeks status post bilateral total knee arthroplasty. he is currently on Lovenox injections to prevent lower extremity DVT. Presented for follow-up visit. At [facility], and was noted to have syncopal episodes. He was transferred to [facility] emergency department. In the emergency department he was noted to have rectal bleeding which was relatively bright red. I was contacted by Dr. Matilda Davis with plans for the patient be admitted for monitoring for lower GI bleeding. the patient has a past history of hypertension, GI, or joint disease, and previous CVA. he underwent colonoscopy November 23, 2014 at [facility] by Dr. Delfin Goel. This demonstrated- normal-appearing colon with sigmoid diverticulosis. in discussions with the patient, he states he had rectal bleeding for at least the past 3 or 4 months. This occasionally occurs when his stools are harder. When the patient was in rehabilitation for his knee. He had 2 days of loose stools. 4. He had worse bleeding. His bowels have returned nearly to normal. He has decreased bleeding currently. He did not notice bleeding for the last 24 hours. Rectal exam in the ER was felt to be unremarkable. the patient states he feels his episodes of feeling nearly syncopal occur when he is having relatively severe knee pain. At this point. He says his knee pain is more severe than he expected and occasionally is very significant. This is when he states he feels dizzy or nearly syncopal during his severe pain episodes. Past Medical History Past Medical History (Chronic Problems): Chronic Problems Depression (Chronic) Benign essential hypertension (Chronic) Low back pain (Chronic) Urinary incontinence (Chronic) Obesity (BMI 30.0-34.9) (Chronic) Elevated PSA (Chronic) recent biopsies done by DR. Monk are negative Allergies iohexol [From Omnipaque] Allergy (Verified 12/13/17 22:05) Rash Home Medications: Ambulatory Orders Medication Instructions Recorded Citalopram Hydrobromide 40 mg PO DAILY 07/05/16 [Citalopram HBr] Atorvastatin Calcium [Lipitor] 80 mg PO QHS 12/13/17 Hydrocodone Bitart/Apap 5-325 1 tab PO Q4H PRN PRN #42 tab 12/28/17 [[place] 5/325] Hydrocortisone [Anusol Hc] 25 mg RECTAL BID PRN PRN #20 12/28/17 suppos. Amlodipine [Norvasc] 10 mg PO DAILY 12/29/17 Ascorbic Acid [Vitamin C] 500 mg PO BIDCM 12/29/17 Aspirin [Aspirin, Baby] 81 mg PO DAILY@0800 12/29/17 Docusate Sodium [Colace] 200 mg PO BID 12/29/17 Fentanyl 75 mg TD Q3D PRN 12/29/17 Ferrous Gluconate 325 mg PO BIDCM 12/29/17 Gabapentin [Neurontin] 300 mg PO QHS 12/29/17 Polyethylene Glycol 3350 [Miralax] 17 gm PO DAILY 12/29/17 Senna [Senokot] 2 tablet PO BID 12/29/17 Surgical History: appendectomy, - - cervical dusion in [id number], prostate biopsy Psychiatric History: Depression - does not take his medication routinely Smoking Status: Never smoker - *Family History Maternal History Items: - - His mother of a brain aneurysm, age 65 Paternal History Items: Cancer - bone and lung, age 75, - - Physical Exam General: Alert, Oriented x3, Cooperative Lungs: Clear to auscultation, Normal air movement Cardiovascular: Regular rate, No murmurs Abdomen: Bowel Sounds Present, Soft, Non Tender Vital Signs Temp Pulse Resp BP Pulse Ox 97.8 F 92 18 116/51 L 98 12/29/17 12:11 12/29/17 17:00 12/29/17 17:00 12/29/17 17:00 12/29/17 17:00 Assessment/Plan blood per rectum-likely anal rectal bleeding. Given his history I would recommend outpatient colonoscopy in 3-4 weeks once his knee pain is improved. At this point, I discussed with the patient that since he had a negative colonoscopy 3 years previously, his chance of significant colon pathology is very slim. We discussed that he would require a full bowel prep and given his continued need discomfort in his early postoperative course from his bilateral knee replacement feel its more prudent to perform this in 3-4 weeks. I would like to see him in the office in one week and then arrange for follow-up endoscopy at that time.
--- NOTE | 2017-12-29 20:32 | PCM.HP.STD ---
Problem List (1) Thrombocytosis Status: Acute (2) Iron deficiency anemia Status: Acute Qualifiers: Iron deficiency anemia type: other iron deficiency Qualified Code(s): D50.8 - Other iron deficiency anemias (3) Sleep disorder breathing Status: Acute (4) Hypertensive urgency Status: Acute (5) LALITA (acute kidney injury) Status: Ruled-out (6) CVA (cerebral vascular accident) Status: Acute Qualifiers: CVA mechanism: unspecified Qualified Code(s): I63.9 - Cerebral infarction, unspecified History of Present Illness Date of Admission: 12/29/17 Chief Complaint: presyncope, rectal bleed The patient is a 57 year old M with past medical history of CVA, degenerative joint disease status post recent bilateral knee replacement, she underwent he underwent rehab and was just discharged yesterday. The patient is complaining of bilateral leg pain yesterday underwent ultrasound that showed no DVTs. He is currently receiving Lovenox for DVT prophylaxis. The patient was seen in the surgeon's office today and complained of nausea and dizziness and was recommended to come to the emergency room. Patient room he was noted to have bright red blood per rectum. Her hemoglobin was 9.1. When I saw the patient she was alert and oriented to time place and person and did not appear to be any form of distress, he denied any abdominal pain and no active hematochezia I am of my evaluation. Dr. Reyes of general surgery was also consulted by the ED to see this patient for further evaluation Past Medical History Past Medical History (Chronic Problems): Chronic Problems Depression (Chronic) Benign essential hypertension (Chronic) Low back pain (Chronic) Urinary incontinence (Chronic) Obesity (BMI 30.0-34.9) (Chronic) Elevated PSA (Chronic) recent biopsies done by DR. Monk are negative Allergies iohexol [From Omnipaque] Allergy (Verified 12/13/17 22:05) Rash Home Medications: Ambulatory Orders Medication Instructions Recorded Citalopram Hydrobromide 40 mg PO DAILY 07/05/16 [Citalopram HBr] Atorvastatin Calcium [Lipitor] 80 mg PO QHS 12/13/17 Hydrocodone Bitart/Apap 5-325 1 tab PO Q4H PRN PRN #42 tab 12/28/17 [Ethridge 5/325] Hydrocortisone [Anusol Hc] 25 mg RECTAL BID PRN PRN #20 12/28/17 suppos. Amlodipine [Norvasc] 10 mg PO DAILY 12/29/17 Ascorbic Acid [Vitamin C] 500 mg PO BIDCM 12/29/17 Aspirin [Aspirin, Baby] 81 mg PO DAILY@0800 12/29/17 Docusate Sodium [Colace] 200 mg PO BID 12/29/17 Fentanyl 1 each TD Q3D PRN 12/29/17 Ferrous Gluconate 325 mg PO BIDCM 12/29/17 Gabapentin [Neurontin] 300 mg PO QHS 12/29/17 Polyethylene Glycol 3350 [Miralax] 17 gm PO DAILY 12/29/17 Senna [Senokot] 2 tablet PO BID 12/29/17 Surgical History: appendectomy, - - cervical dusion in [id number], prostate biopsy Psychiatric History: Depression - does not take his medication routinely Smoking Status: Never smoker - *Family History Maternal History Items: - - His mother of a brain aneurysm, age 65 Paternal History Items: Cancer - bone and lung, age 75, - Review of Systems Comment: All Systems were reviewed with pertinent positives mentioned in the HPI above. VTE Information - Inpt Only VTE Present on Admission: No VTE Mechan Device Prophylaxis: SCD's VTE Pharm Prophylaxis ordered?: No - Physical Exam General: Alert, Oriented x3 HEENT: Atraumatic Oral: Moist Mucosa Neck: Supple, No JVD Lungs: Clear to auscultation, Normal air movement, No wheeze Cardiovascular: Regular rate, Regular Rhythm, Normal S1, Normal S2 Abdomen: Bowel Sounds Present, Soft, Non Tender, Non-Distended Extremities: No edema Vital Signs Temp Pulse Resp BP Pulse Ox 97.8 F 91 16 113/97 H 98 12/29/17 12:11 12/29/17 18:37 12/29/17 18:37 12/29/17 18:37 12/29/17 18:37 Weight: 108.55 kg Body Mass Index (BMI) 30.7 Assessment/Plan 1. Acute rectal bleed; will monitor H&H, Dr. Reyes has been consulted to evaluate for colonoscopy. Lovenox has been discontinued. 2. Acute blood loss anemia; hemoglobin is stable at this point we will continue to monitor and transfuse with PRBCs if need be. 3. Recent bilateral knee replacement SCDs for DVT prophylaxis. 4. Old stroke; the patient is on aspirin for secondary stroke prevention we are holding this for now due to the active GI bleed. 5. Essential hypertension ; he is on amlodipine. Code Visit OBSV E&M: 00400 Initial observation care L3
[2017-12-29] MEDS: 0.9% Normal Saline 1,000 ML 100 ML IV (22:15)
[2017-12-29] MEDS: Docusate Sodium 100 MG Capsule 200 MG PO (22:20)
[2017-12-29] MEDS: Atorvastatin Calcium 80 MG Tablet PO (22:21)
[2017-12-29] MEDS: Gabapentin 300 MG Capsule PO (22:21)
[2017-12-29] MEDS: Senna Tablet 2 TABLET PO (22:22)
[2017-12-29 22:40] LABS: Hematocrit 32.3 % (40-54); Hemoglobin 10.3 g/dl (13.0-16.5)
[2017-12-29] MEDS: HYDROcodone Bitartrate/Apap 5/325 Tablet PO (23:52)
[2017-12-30] VITALS (12 sets, daily range): BP systolic 99–138; BP diastolic 63–75; PULSE 85–120; RESP 16–18; TEMP 36.6–37.2; O2SAT 92–100
[2017-12-30] MEDS: HYDROcodone Bitartrate/Apap 5/325 Tablet PO (04:27)
[2017-12-30 06:42] LABS: Absolute Lymphocyte Count 2.34 X10^3/ul (0.83-4.51); Absolute Neutrophil Count 5.8 X10^3/uL (2.0-7.7); Basophil# 0.01 X10^3/uL; Basophil% 0.1 % (0-1); Eosinophil# 0.19 X10^3/uL; Eosinophils% 2.1 % (0-5); Hematocrit 30.4 % (40-54); Hemoglobin 9.7 g/dl (13.0-16.5); Lymphocyte # 2.34 X10^3/ul (4.0); Lymphocyte % 25.8 % (19-41); Mean Corp Hgb Conc 31.9 g/gl (32-36); Mean Corpuscular Hgb 27.6 pg (27.0-32.0); Mean Corpuscular Volume 86.4 fL (80-94); Mean Platelet Vol. 8.4 fl (6.2-12.0); Monocyte# 0.67 X10^3/uL; Monocyte% 7.4 % (0-10); Neutrophil # 5.83 X10^3/uL (2.7-7.7); Neutrophil % 64.4 % (47-70); Platelet Count 681 K/mm3 (150-450); RBC Distribution Width CV 14.4 % (11.6-14.6); RBC Distribution Width SD 45.2 fl (35.1-43.9); Red Blood Count 3.52 M/mm3 (4.6-6.2); White Blood Count 9.1 K/mm3 (4.4-11.0)
[2017-12-30 06:44] LABS: POSITIVE COUNT NO; POSITIVE DIFFERENTIAL NO; POSITIVE MORPHOLOGY NO
[2017-12-30 06:55] LABS: Anion Gap 7 (5-15); BUN 20 mg/dL (7-18); BUN/Creat Ratio 24.6 RATIO (10-20); Chloride 103 mmol/L (98-107); Creatinine, Serum 0.81 mg/dL (0.70-1.30); EST Glomerular Filtration Rate 104 mL/min (>60); Est Glom Filt Rate - Afr Amer 126 mL/min (>60); Glucose 96 mg/dL (74-106); Potassium 4.1 mmol/L (3.5-5.1); Sodium Level 136 mmol/L (136-145)
[2017-12-30] MEDS: Docusate Sodium 100 MG Capsule 200 MG PO ×2 (08:08→22:41)
[2017-12-30] MEDS: 0.9% Normal Saline 1,000 ML 100 ML IV (08:08)
[2017-12-30] MEDS: amLODIPine 10 MG Tablet PO (08:08)
[2017-12-30] MEDS: Polyethylene Glycol 3350 17 GM PACKET PO (08:08)
[2017-12-30] MEDS: Citalopram 40 MG TABLET PO (08:09)
[2017-12-30] MEDS: Ferrous Gluconate 325 MG Tablet PO ×2 (08:09→16:27)
[2017-12-30] MEDS: Senna Tablet 2 TABLET PO ×2 (08:15→22:41)
[2017-12-30 09:44] LABS: Hematocrit 31.5 % (40-54); Hemoglobin 10.1 g/dl (13.0-16.5)
[2017-12-30 10:05] LABS: International Normalized Ratio 1.1; Prothrombin Time (Protime)PT. 14.4 SECONDS (11.7-14.9)
--- NOTE | 2017-12-30 11:02 | PCM.PROGNOTE ---
Subjective: Chief complaint: Follow-up after admission for GI bleed and chronic anemia. Patient seen and examined. No acute events overnight. He has no more active bleeding. He complains of bilateral knee pain, dull aching, constant pain, 9 out of 10 in severity. He has been on fentanyl patch and [place] as needed since his surgery and he thinks that his pain is not controlled at all. His vital signs are stable. - Physical Exam General: Alert, Oriented x3, Cooperative, No apparent distress HEENT: Atraumatic, PERRLA, EOMI Oral: Moist Mucosa, No Gingival or Mucosal Lesions/ Ulcerations Neck: Supple, No JVD, Negative Carotid Bruits, Trachea Midline, Thyroid Normal Size and Texture Lungs: Clear to auscultation, Normal air movement, No rhonchi, No wheeze, No rales Cardiovascular: Regular rate, Regular Rhythm, Normal S1, Normal S2, No murmurs Abdomen: Bowel Sounds Present, Soft, Non Tender, Non-Distended, No Hepato-splenomegaly Extremities: No clubbing, No cyanosis, No edema Skin: No rashes, - - Surgical scars of the both knees are intact, dry no erythema or drainage. Lymphatic: No Cervical, Supraclavicular, or Inguinal Adenopathy Neurological: Cranial nerves II-XII grossly intact, Motor Exam 5/5 strength throughout Psych/Mental Status: Normal Affect, Appropriate, Alert and oriented to time, place, person, mood and affect Vital Signs Temp Pulse Resp BP Pulse Ox 98.9 F 108 H 18 117/71 92 12/30/17 08:01 12/30/17 09:28 12/30/17 08:01 12/30/17 08:01 12/30/17 08:01 Oxygen Delivery Method Room Air Weight: 239 lb 5 oz Body Mass Index (BMI) 30.7 Intake and Output for Last 24 Hours 12/28/17 12/29/17 12/30/17 23:59 23:59 23:59 Intake Total 800 / 800 Output Total 450 / 450 Balance 350 / 350 Laboratory Tests Past 24 Hrs 12/29/17 12/29/17 12/29/17 22:15 22:15 22:15 WBC RBC Hgb 10.3 L Hct 32.3 L MCV MCH MCHC RDW RDW Differential Plt Count MPV Immature Gran % (Auto) Neut % (Auto) Lymph % (Auto) Martin % (Auto) Eos % (Auto) Baso % (Auto) Absolute Neuts (auto) Absolute Lymphs (auto) Total Counted PT INR Sodium Potassium Chloride Carbon Dioxide Anion Gap BUN Creatinine Estim Creat Clear Calc Est GFR (MDRD) Af Amer Est GFR (MDRD) Non-Af BUN/Creatinine Ratio Glucose Calcium Blood Type O POSITIVE Antibody Screen NEGATIVE Crossmatch See Detail 12/30/17 12/30/17 12/30/17 05:46 05:46 09:38 WBC 9.1 RBC 3.52 L Hgb 9.7 L 10.1 L Hct 30.4 L 31.5 L MCV 86.4 MCH 27.6 MCHC 31.9 L RDW 14.4 RDW Differential 45.2 H Plt Count 681 H MPV 8.4 Immature Gran % (Auto) 0.200 Neut % (Auto) 64.4 Lymph % (Auto) 25.8 Martin % (Auto) 7.4 Eos % (Auto) 2.1 Baso % (Auto) 0.1 Absolute Neuts (auto) 5.8 Absolute Lymphs (auto) 2.34 Total Counted Not Reportable PT INR Sodium 136 Potassium 4.1 Chloride 103 Carbon Dioxide 26.0 Anion Gap 7 BUN 20 H Creatinine 0.81 Estim Creat Clear Calc 118.40 Est GFR (MDRD) Af Amer 126 Est GFR (MDRD) Non-Af 104 BUN/Creatinine Ratio 24.6 H Glucose 96 Calcium 8.0 L Blood Type Antibody Screen Crossmatch 12/30/17 09:38 WBC RBC Hgb Hct MCV MCH MCHC RDW RDW Differential Plt Count MPV Immature Gran % (Auto) Neut % (Auto) Lymph % (Auto) Martin % (Auto) Eos % (Auto) Baso % (Auto) Absolute Neuts (auto) Absolute Lymphs (auto) Total Counted PT 14.4 INR 1.1 Sodium Potassium Chloride Carbon Dioxide Anion Gap BUN Creatinine Estim Creat Clear Calc Est GFR (MDRD) Af Amer Est GFR (MDRD) Non-Af BUN/Creatinine Ratio Glucose Calcium Blood Type Antibody Screen Crossmatch Medical Necessity - Tobacco Use Smoking Status: Never smoker Assessment/Plan This is a 57 years old male patient who underwent bilateral knee replacement 3 weeks ago, was seen yesterday at [facility] [place] because of dizziness, lightheadedness and nausea and he was sent to the ER, found to have GI bleed, anemia, presyncope and his bilateral knee pain is not controlled. #1 GI bleed: This has been going on for almost 1 year. Today, he has no more rectal bleeding. His stool was positive for occult blood. Reportedly, patient had colonoscopy 3 years ago that was unremarkable according to Dr. Reyes. He was on aspirin and Lovenox for DVT prophylaxis after his bilateral knee replacement. General surgery consulted. Plan: Monitoring blood counts, transfuse if needed, no plan for endoscopy or colonoscopy at this time. #2 anemia: This has been going on since his surgery. Before surgery, his hemoglobin was normal. After his surgery of bilateral knee replacement, hemoglobin has been around 10 g/dL. This is likely because of blood loss during surgery in addition to GI bleed. Admission hemoglobin was 10.3 g/dL, today's hemoglobin is 10.1 g with sitter. At this time, patient is not actively bleeding. No indication for transfusion. Plan to monitor, repeat H&H tomorrow morning. #3 presyncope: Patient mentioned that he gets dizzy and lightheaded when he gets severe bilateral knee pain. Today, he denies any more dizziness or lightheadedness. His vital signs are stable. #4 status post bilateral knee replacement: Surgical scar of both knees looks clean and dry, no evidence of infection. His bilateral knee pain is not well controlled. He states that his pain is around 8-9 out of 10 in severity. He has been on fentanyl patch and [place] as needed since his surgery which are not effective. Plan: DC fentanyl patch, DC [place], start IV morphine as needed, OxyIR as needed, PT OT eval and treatment, patient [facility] need [facility]. #5 hypertension: Blood pressure stable, continue Norvasc. #6 hyperlipidemia: Continue statins. #7 depression: Continue Celexa. #8 DVT prophylaxis: SCDs. This note was generated with [employer] dictation software. It may contain incorrect words, spelling, and punctuation that were not noted in checking the note before signing. Code Visit Inpatient E&M: 27590 Subs Hosp L2
--- NOTE | 2017-12-30 11:06 | PN_ITS ---
Subjective: Chief complaint: Follow-up after admission for GI bleed and chronic anemia. Patient seen and examined. No acute events overnight. He has no more active bleeding. He complains of bilateral knee pain, dull aching, constant pain, 9 out of 10 in severity. He has been on fentanyl patch and Aroda as needed since his surgery and he thinks that his pain is not controlled at all. His vital signs are stable. - Physical Exam General: Alert, Oriented x3, Cooperative, No apparent distress HEENT: Atraumatic, PERRLA, EOMI Oral: Moist Mucosa, No Gingival or Mucosal Lesions/ Ulcerations Neck: Supple, No JVD, Negative Carotid Bruits, Trachea Midline, Thyroid Normal Size and Texture Lungs: Clear to auscultation, Normal air movement, No rhonchi, No wheeze, No rales Cardiovascular: Regular rate, Regular Rhythm, Normal S1, Normal S2, No murmurs Abdomen: Bowel Sounds Present, Soft, Non Tender, Non-Distended, No Hepato- splenomegaly Extremities: No clubbing, No cyanosis, No edema Skin: No rashes, - - Surgical scars of the both knees are intact, dry no erythema or drainage. Lymphatic: No Cervical, Supraclavicular, or Inguinal Adenopathy Neurological: Cranial nerves II-XII grossly intact, Motor Exam 5/5 strength throughout Psych/Mental Status: Normal Affect, Appropriate, Alert and oriented to time, place, person, mood and affect Vital Signs Temp Pulse Resp BP Pulse Ox 98.9 F 108 H 18 117/71 92 12/30/17 08:01 12/30/17 09:28 12/30/17 08:01 12/30/17 08:01 12/30/17 08:01 Oxygen Delivery Method Room Air Weight: 239 lb 5 oz Body Mass Index (BMI) 30.7 Intake and Output for Last 24 Hours 12/28/17 12/29/17 12/30/17 23:59 23:59 23:59 Intake Total 800 / 800 Output Total 450 / 450 Balance 350 / 350 Laboratory Tests Past 24 Hrs 12/29/17 12/29/17 12/29/17 22:15 22:15 22:15 WBC RBC Hgb 10.3 L Hct 32.3 L MCV MCH MCHC RDW RDW Differential Plt Count MPV Immature Gran % (Auto) Neut % (Auto) Lymph % (Auto) Crenshaw % (Auto) Eos % (Auto) Baso % (Auto) Absolute Neuts (auto) Absolute Lymphs (auto) Total Counted PT INR Sodium Potassium Chloride Carbon Dioxide Anion Gap BUN Creatinine Estim Creat Clear Calc Est GFR (MDRD) Af Amer Est GFR (MDRD) Non-Af BUN/Creatinine Ratio Glucose Calcium Blood Type O POSITIVE Antibody Screen NEGATIVE Crossmatch See Detail 12/30/17 12/30/17 12/30/17 05:46 05:46 09:38 WBC 9.1 RBC 3.52 L Hgb 9.7 L 10.1 L Hct 30.4 L 31.5 L MCV 86.4 MCH 27.6 MCHC 31.9 L RDW 14.4 RDW Differential 45.2 H Plt Count 681 H MPV 8.4 Immature Gran % (Auto) 0.200 Neut % (Auto) 64.4 Lymph % (Auto) 25.8 [place] % (Auto) 7.4 Eos % (Auto) 2.1 Baso % (Auto) 0.1 Absolute Neuts (auto) 5.8 Absolute Lymphs (auto) 2.34 Total Counted Not Reportable PT INR Sodium 136 Potassium 4.1 Chloride 103 Carbon Dioxide 26.0 Anion Gap 7 BUN 20 H Creatinine 0.81 Estim Creat Clear Calc 118.40 Est GFR (MDRD) Af Amer 126 Est GFR (MDRD) Non-Af 104 BUN/Creatinine Ratio 24.6 H Glucose 96 Calcium 8.0 L Blood Type Antibody Screen Crossmatch 12/30/17 09:38 WBC RBC Hgb Hct MCV MCH MCHC RDW RDW Differential Plt Count MPV Immature Gran % (Auto) Neut % (Auto) Lymph % (Auto) [place] % (Auto) Eos % (Auto) Baso % (Auto) Absolute Neuts (auto) Absolute Lymphs (auto) Total Counted PT 14.4 INR 1.1 Sodium Potassium Chloride Carbon Dioxide Anion Gap BUN Creatinine Estim Creat Clear Calc Est GFR (MDRD) Af Amer Est GFR (MDRD) Non-Af BUN/Creatinine Ratio Glucose Calcium Blood Type Antibody Screen Crossmatch Medical Necessity - Tobacco Use Smoking Status: Never smoker Assessment/Plan This is a 57 years old male patient who underwent bilateral knee replacement 3 weeks ago, was seen yesterday at [facility] [place] because of dizziness, lightheadedness and nausea and he was sent to the ER, found to have GI bleed, anemia, presyncope and his bilateral knee pain is not controlled. #1 GI bleed: This has been going on for almost 1 year. Today, he has no more rectal bleeding. His stool was positive for occult blood. Reportedly, patient had colonoscopy 3 years ago that was unremarkable according to Dr. Reyes. He was on aspirin and Lovenox for DVT prophylaxis after his bilateral knee replacement. General surgery consulted. Plan: Monitoring blood counts, transfuse if needed, no plan for endoscopy or colonoscopy at this time. #2 anemia: This has been going on since his surgery. Before surgery, his hemoglobin was normal. After his surgery of bilateral knee replacement, hemoglobin has been around 10 g/dL. This is likely because of blood loss during surgery in addition to GI bleed. Admission hemoglobin was 10.3 g/dL, today's hemoglobin is 10.1 g with sitter. At this time, patient is not actively bleeding. No indication for transfusion. Plan to monitor, repeat H&H tomorrow morning. #3 presyncope: Patient mentioned that he gets dizzy and lightheaded when he gets severe bilateral knee pain. Today, he denies any more dizziness or lightheadedness. His vital signs are stable. #4 status post bilateral knee replacement: Surgical scar of both knees looks clean and dry, no evidence of infection. His bilateral knee pain is not well controlled. He states that his pain is around 8-9 out of 10 in severity. He has been on fentanyl patch and Aroda as needed since his surgery which are not effective. Plan: DC fentanyl patch, DC Aroda, start IV morphine as needed, OxyIR as needed, PT OT eval and treatment, patient may need to [facility] again to [facility]. #5 hypertension: Blood pressure stable, continue Norvasc. #6 hyperlipidemia: Continue statins. #7 depression: Continue Celexa. #8 DVT prophylaxis: SCDs. This note was generated with [employer] dictation software. It may contain incorrect words, spelling, and punctuation that were not noted in checking the note before signing. Code Visit Inpatient E&M: 90832 Subs Hosp L2
--- NOTE | 2017-12-30 11:27 | CASEMGMT ---
TANYA DE SANTIAGO Face to Face with patient for initial transition planning/care coordination assessment. TANYA DE SANTIAGO introduced self and role at [facility]. Patient lying in bed, alert and oriented. Patient willing to participate in assessment and is able to answer all questions appropriately. Care providers, pharmacy, and demographics verified. See link attached. Patient wishes to return to rehab unit if able. Patient states that he was discharged from rehab recently and was to start with outpatient therapy at [facility]. TANYA DE SANTIAGO will update YU Santiago regarding request for inpatient rehab unit. Patient states he has no further needs or concerns at this time. CM to follow for discharge planning needs that may arise. Disposition Plan: Patient to discharge to inpatient rehab unit vs home with outpatient therapy
[2017-12-30] MEDS: oxyCODONE 5 MG Tablet PO ×2 (14:08→20:38)
[2017-12-30] MEDS: 0.9% NaCl Peripheral Flush Adult/Peds IV (16:27)
[2017-12-30] MEDS: Morphine 2 MG/ML Syringe IV ×2 (16:27→22:41)
--- NOTE | 2017-12-30 16:40 | CASEMGMT ---
Social Work: Spoke to Mireya Brown RN CM who states that patient is requesting referral to return to . Spoke with Melina Rivera, apartment community assistant manager. Melina states that they are unable to accept patient back into rehab LOC due to patient just being discharged from the on 12/28/17 at a mod I level. Met with patient in room to discuss D/C plan. Patient aware that the inpatient rehab unit is unable to accept patient back. Patient verbalizing understanding and states that he will return home with outpatient PT. Patient states that [facility] had not called to schedule an outpatient PT appointment as of yet. This SW assured patient that outpatient PT appointment will be made before patient leaves the hospital this admission. TC to Mireya Brown RN CM to update that patient is aware that is unable to accept patient. Mireya states that she will set up outpatient PT at [facility] before patient is discharged. PLAN: Patient to return home with and outpatient PT. TANISHA Mehta
--- NOTE | 2017-12-30 18:24 | NURSING ---
HR tachy at 130. Pt up to restroom. Had a bloody BM (second one of the day). Assisted back to bed. pt c/o of not feeling well. described symptoms as hot, weak, shaky, and off. BP 129/73 and temp 98.6. Room temp was warm and adjusted per pt request. Pt feeling better once back to bed. Instructed pt to call for help when getting up from now on.
[2017-12-30] MEDS: Atorvastatin Calcium 80 MG Tablet PO (22:41)
[2017-12-30] MEDS: Gabapentin 300 MG Capsule PO (22:41)
[2017-12-30 23:18] LABS: Hematocrit 31.1 % (40-54); Hemoglobin 9.8 g/dl (13.0-16.5)
[2017-12-31] VITALS (9 sets, daily range): BP systolic 131–164; BP diastolic 76–85; PULSE 89–114; RESP 16–18; TEMP 36.6–36.9; O2SAT 98–100
[2017-12-31] MEDS: oxyCODONE 5 MG Tablet PO ×2 (02:47→10:16)
[2017-12-31 06:11] LABS: Absolute Lymphocyte Count 2.43 X10^3/ul (0.83-4.51); Absolute Neutrophil Count 6.2 X10^3/uL (2.0-7.7); Basophil# 0.01 X10^3/uL; Basophil% 0.1 % (0-1); Eosinophil# 0.25 X10^3/uL; Eosinophils% 2.6 % (0-5); Hematocrit 30.7 % (40-54); Hemoglobin 9.7 g/dl (13.0-16.5); Lymphocyte # 2.43 X10^3/ul (4.0); Lymphocyte % 25.7 % (19-41); Mean Corp Hgb Conc 31.6 g/gl (32-36); Mean Corpuscular Hgb 27.1 pg (27.0-32.0); Mean Corpuscular Volume 85.8 fL (80-94); Mean Platelet Vol. 8.3 fl (6.2-12.0); Monocyte# 0.58 X10^3/uL; Monocyte% 6.1 % (0-10); Neutrophil # 6.15 X10^3/uL (2.7-7.7); Neutrophil % 65.3 % (47-70); Platelet Count 627 K/mm3 (150-450); RBC Distribution Width CV 14.1 % (11.6-14.6); RBC Distribution Width SD 44.1 fl (35.1-43.9); Red Blood Count 3.58 M/mm3 (4.6-6.2); White Blood Count 9.4 K/mm3 (4.4-11.0)
[2017-12-31 06:13] LABS: POSITIVE COUNT NO; POSITIVE DIFFERENTIAL NO; POSITIVE MORPHOLOGY NO
--- NOTE | 2017-12-31 06:16 | PCM.PN.SRG ---
Subjective: some scant blood in the toilet bowel - still bilateral knee pain - Physical Exam General: Alert, Oriented x3, Cooperative Lungs: Clear to auscultation, Normal air movement Cardiovascular: Regular rate, No murmurs Abdomen: Bowel Sounds Present, Soft, Non Tender Vital Signs Temp Pulse Resp BP Pulse Ox 98 F 99 16 142/85 H 100 12/31/17 02:30 12/31/17 02:45 12/31/17 02:30 12/31/17 02:30 12/31/17 02:30 Oxygen Delivery Method Room Air Weight: 108.55 kg Body Mass Index (BMI) 30.7 Orthostatic Vital Signs Start: 12/30/17 14:00 Freq: X1 Status: Active Protocol: Activity Type Activity Date Activity User E-Sign Co-Sign Detail Recorded Client Recorded Date Recorded By Document 12/30/17 14:00 MAB [id number] 12/30/17 14:04 MAB 12/30/17 14:00 Orthostatic Vitals Standing -Blood Pressure (90/60-120/80) 101/63 -Extremity Use Left Arm -Pulse Rate (60-100) 120 H Sitting -Blood Pressure (90/60-120/80) 99/64 -Extremity Use Left Arm -Pulse Rate (60-100) 113 H Lying -Blood Pressure (90/60-120/80) 136/75 H -Extremity Use Left Arm -Pulse Rate (60-100) 92 Intake and Output for Last 24 Hours 12/29/17 12/30/17 12/31/17 23:59 23:59 23:59 Intake Total 1946 / 1946 600 / 600 Output Total 450 / 450 Balance 1496 / 1496 600 / 600 Laboratory Tests Past 24 Hrs 12/30/17 12/30/17 12/30/17 05:46 05:46 09:38 WBC 9.1 RBC 3.52 L Hgb 9.7 L 10.1 L Hct 30.4 L 31.5 L MCV 86.4 MCH 27.6 MCHC 31.9 L RDW 14.4 RDW Differential 45.2 H Plt Count 681 H MPV 8.4 Immature Gran % (Auto) 0.200 Neut % (Auto) 64.4 Lymph % (Auto) 25.8 Hamilton % (Auto) 7.4 Eos % (Auto) 2.1 Baso % (Auto) 0.1 Absolute Neuts (auto) 5.8 Absolute Lymphs (auto) 2.34 Total Counted Not Reportable PT INR Sodium 136 Potassium 4.1 Chloride 103 Carbon Dioxide 26.0 Anion Gap 7 BUN 20 H Creatinine 0.81 Estim Creat Clear Calc 118.40 Est GFR (MDRD) Af Amer 126 Est GFR (MDRD) Non-Af 104 BUN/Creatinine Ratio 24.6 H Glucose 96 Calcium 8.0 L 12/30/17 12/30/17 12/31/17 09:38 23:03 05:40 WBC 9.4 RBC 3.58 L Hgb 9.8 L 9.7 L Hct 31.1 L 30.7 L MCV 85.8 MCH 27.1 MCHC 31.6 L RDW 14.1 RDW Differential 44.1 H Plt Count 627 H MPV 8.3 Immature Gran % (Auto) 0.200 Neut % (Auto) 65.3 Lymph % (Auto) 25.7 Hamilton % (Auto) 6.1 Eos % (Auto) 2.6 Baso % (Auto) 0.1 Absolute Neuts (auto) 6.2 Absolute Lymphs (auto) 2.43 Total Counted Not Reportable PT 14.4 INR 1.1 Sodium Potassium Chloride Carbon Dioxide Anion Gap BUN Creatinine Estim Creat Clear Calc Est GFR (MDRD) Af Amer Est GFR (MDRD) Non-Af BUN/Creatinine Ratio Glucose Calcium 12/31/17 05:40 WBC RBC Hgb Hct MCV MCH MCHC RDW RDW Differential Plt Count MPV Immature Gran % (Auto) Neut % (Auto) Lymph % (Auto) [place] % (Auto) Eos % (Auto) Baso % (Auto) Absolute Neuts (auto) Absolute Lymphs (auto) Total Counted PT INR Sodium Pending Potassium Pending Chloride Pending Carbon Dioxide Pending Anion Gap Pending BUN Pending Creatinine Pending Estim Creat Clear Calc Est GFR (MDRD) Af Amer Pending Est GFR (MDRD) Non-Af Pending BUN/Creatinine Ratio Pending Glucose Pending Calcium Pending Medical Necessity - Tobacco Use Smoking Status: Never smoker Assessment/Plan blood per rectum-likely anal rectal bleeding. Given his history, I would recommend outpatient colonoscopy in 3-4 weeks once his knee pain is improved. At this point, I discussed with the patient that since he had a negative colonoscopy 3 years previously, his chance of significant colon pathology is very slim. We discussed that he would require a full bowel prep and given his continued need discomfort in his early postoperative course from his bilateral knee replacement feel its more prudent to perform this in 3-4 weeks. I would like to see him in the office in one week and then arrange for follow-up endoscopy at that time.
[2017-12-31 06:22] LABS: Anion Gap 8 (5-15); BUN 16 mg/dL (7-18); BUN/Creat Ratio 22.4 RATIO (10-20); Calcium,Total 8.2 mg/dL (8.5-10.1); Chloride 105 mmol/L (98-107); Creatinine, Serum 0.71 mg/dL (0.70-1.30); EST Glomerular Filtration Rate 121 mL/min (>60); Est Glom Filt Rate - Afr Amer 147 mL/min (>60); Estimated Creatinine Clearance 135.07 ml/min; Glucose 136 mg/dL (74-106); Potassium 3.9 mmol/L (3.5-5.1); Sodium Level 138 mmol/L (136-145)
[2017-12-31] MEDS: Polyethylene Glycol 3350 17 GM PACKET PO (07:49)
[2017-12-31] MEDS: Citalopram 40 MG TABLET PO (07:49)
[2017-12-31] MEDS: Docusate Sodium 100 MG Capsule 200 MG PO ×2 (07:49→21:18)
[2017-12-31] MEDS: Senna Tablet 2 TABLET PO ×2 (07:49→21:17)
[2017-12-31] MEDS: amLODIPine 10 MG Tablet PO (07:49)
[2017-12-31] MEDS: Ferrous Gluconate 325 MG Tablet PO ×2 (07:49→16:55)
[2017-12-31] MEDS: 0.9% NaCl Peripheral Flush Adult/Peds IV ×2 (07:53→13:36)
[2017-12-31] MEDS: Morphine 2 MG/ML Syringe IV ×2 (07:53→13:36)
[2017-12-31 10:21] LABS: Hematocrit 33.6 % (40-54); Hemoglobin 10.7 g/dl (13.0-16.5)
--- NOTE | 2017-12-31 15:31 | PCM.PROGNOTE ---
Subjective: Chief complaint: Follow-up after admission for GI bleed, anemia, presyncope and intractable bilateral knee pain due to bilateral knee replacement. Patient seen and examined. No acute events overnight. Still having some scant blood in the toilet. Denies any more dizziness or lightheadedness. Knee pain still not controlled, 7 out of 10 in severity without improvement with change of his pain medication. His vital signs are stable. - Physical Exam General: Alert, Oriented x3, Cooperative, No apparent distress HEENT: Atraumatic, PERRLA, EOMI Oral: Moist Mucosa, No Gingival or Mucosal Lesions/ Ulcerations Neck: Supple, No JVD, Negative Carotid Bruits, Trachea Midline, Thyroid Normal Size and Texture Lungs: Clear to auscultation, Normal air movement, No rhonchi, No wheeze, No rales Cardiovascular: Regular rate, Regular Rhythm, Normal S1, Normal S2, PMI Normal Abdomen: Bowel Sounds Present, Soft, Non Tender, Non-Distended, No Hepato-splenomegaly Extremities: No clubbing, No cyanosis, No edema Skin: No rashes, No breakdown Lymphatic: No Cervical, Supraclavicular, or Inguinal Adenopathy Neurological: Cranial nerves II-XII grossly intact, Neuro grossly intact Psych/Mental Status: Normal Affect, Appropriate, Alert and oriented to time, place, person, mood and affect Vital Signs Temp Pulse Resp BP Pulse Ox 98.0 F 114 H 18 131/76 H 98 12/31/17 13:33 12/31/17 13:33 12/31/17 13:33 12/31/17 13:33 12/31/17 13:33 Oxygen Delivery Method Room Air Weight: 239 lb 4.988 oz Body Mass Index (BMI) 30.7 Orthostatic Vital Signs Start: 12/30/17 14:00 Freq: X1 Status: Active Protocol: Activity Type Activity Date Activity User E-Sign Co-Sign Detail Recorded Client Recorded Date Recorded By Document 12/30/17 14:00 [facility] [id number] 12/30/17 14:04 [facility] 12/30/17 14:00 Orthostatic Vitals Standing -Blood Pressure (90/60-120/80) 101/63 -Extremity Use Left Arm -Pulse Rate (60-100) 120 H Sitting -Blood Pressure (90/60-120/80) 99/64 -Extremity Use Left Arm -Pulse Rate (60-100) 113 H Lying -Blood Pressure (90/60-120/80) 136/75 H -Extremity Use Left Arm -Pulse Rate (60-100) 92 Intake and Output for Last 24 Hours 12/29/17 12/30/17 12/31/17 23:59 23:59 23:59 Intake Total 1946 / 1946 970 / 970 Output Total 450 / 450 250 / 250 Balance 1496 / 1496 720 / 720 Laboratory Tests Past 24 Hrs 12/30/17 12/31/17 12/31/17 23:03 05:40 05:40 WBC 9.4 RBC 3.58 L Hgb 9.8 L 9.7 L Hct 31.1 L 30.7 L MCV 85.8 MCH 27.1 MCHC 31.6 L RDW 14.1 RDW Differential 44.1 H Plt Count 627 H MPV 8.3 Immature Gran % (Auto) 0.200 Neut % (Auto) 65.3 Lymph % (Auto) 25.7 [place] % (Auto) 6.1 Eos % (Auto) 2.6 Baso % (Auto) 0.1 Absolute Neuts (auto) 6.2 Absolute Lymphs (auto) 2.43 Total Counted Not Reportable Sodium 138 Potassium 3.9 Chloride 105 Carbon Dioxide 25.0 Anion Gap 8 BUN 16 Creatinine 0.71 Estim Creat Clear Calc 135.07 Est GFR (MDRD) Af Amer 147 Est GFR (MDRD) Non-Af 121 BUN/Creatinine Ratio 22.4 H Glucose 136 H Calcium 8.2 L 12/31/17 10:10 WBC RBC Hgb 10.7 L Hct 33.6 L MCV MCH MCHC RDW RDW Differential Plt Count MPV Immature Gran % (Auto) Neut % (Auto) Lymph % (Auto) [place] % (Auto) Eos % (Auto) Baso % (Auto) Absolute Neuts (auto) Absolute Lymphs (auto) Total Counted Sodium Potassium Chloride Carbon Dioxide Anion Gap BUN Creatinine Estim Creat Clear Calc Est GFR (MDRD) Af Amer Est GFR (MDRD) Non-Af BUN/Creatinine Ratio Glucose Calcium Medical Necessity - Tobacco Use Smoking Status: Never smoker Assessment/Plan This is a 57 years old male patient who underwent bilateral knee replacement 3 weeks ago, was seen yesterday at [facility] because of dizziness, lightheadedness and nausea and he was sent to the ER, found to have GI bleed, anemia, presyncope and his bilateral knee pain is not controlled. #1 GI bleed: Patient still having scant amount of blood in the toilet. Most recent hemoglobin is 10.7 g/dL. Remains stable, no indication for transfusion. Vital signs are stable. His stool was positive for occult blood. Reportedly, patient had colonoscopy 3 years ago that was unremarkable according to Dr. Reyes. Dr. Reyes recommended colonoscopy as outpatient in 3-4 weeks. #2 anemia: Secondary to above in addition to some history of bilateral knee replacement. Today's hemoglobin is 10.7 g/dL, remained stable. No indication for transfusion. Plan to repeat H&H tomorrow morning. #3 presyncope: Patient mentioned that he gets dizzy and lightheaded when he gets severe bilateral knee pain. Today, he denies any more dizziness or lightheadedness. His vital signs are stable. #4 Intractable bilateral knee pain/status post bilateral knee replacement: Patient was on fentanyl patch and [place] as needed but pain was not controlled. Yesterday, fentanyl patch and [place] discontinued, started on IV morphine and OxyIR and without improvement. Today, he is still rating his pain as 8 out of 10 in severity. I contacted his orthopedic surgeon, Dr. Zamora's office and I spoke with his nurse who contacted the doctor and they mentioned that he ran out of orders as suggested pain management consultation as outpatient. I discussed the plan with the patient again and I recommended to start him on MS Contin twice daily as well as OxyIR as needed for breakthrough pain: Plan: We will start him on MS Contin, continue OxyIR as needed, anticipate discharge home tomorrow. #5 hypertension: Blood pressure stable, continue Norvasc. #6 hyperlipidemia: Continue statins. #7 depression: Continue Celexa. #8 DVT prophylaxis: SCDs. This note was generated with [employer] dictation software. It may contain incorrect words, spelling, and punctuation that were not noted in checking the note before signing. Code Visit Inpatient E&M: 62882 Subs Hosp L2
--- NOTE | 2017-12-31 15:31 | CASEMGMT ---
RN CM spoke to patient regarding outpatient therapy at [facility] and patient requested that this RN CM schedule appt for patient. RN CM called [facility] and they did not have order from rehab unit for outpatient therapy. TANYA DE SANTIAGO obtained script for outpatient therapy from [facility] Thompson from rehab unit and refaxed to [facility]. RN CM called [facility] again to schedule appt. Patient has appt for Wednesday01/04/18 at 8:00am. Patient updated regarding appt.
--- NOTE | 2017-12-31 15:41 | PN_ITS ---
Subjective: Chief complaint: Follow-up after admission for GI bleed, anemia, presyncope and intractable bilateral knee pain due to bilateral knee replacement. Patient seen and examined. No acute events overnight. Still having some scant blood in the toilet. Denies any more dizziness or lightheadedness. Knee pain still not controlled, 7 out of 10 in severity without improvement with change of his pain medication. His vital signs are stable. - Physical Exam General: Alert, Oriented x3, Cooperative, No apparent distress HEENT: Atraumatic, PERRLA, EOMI Oral: Moist Mucosa, No Gingival or Mucosal Lesions/ Ulcerations Neck: Supple, No JVD, Negative Carotid Bruits, Trachea Midline, Thyroid Normal Size and Texture Lungs: Clear to auscultation, Normal air movement, No rhonchi, No wheeze, No rales Cardiovascular: Regular rate, Regular Rhythm, Normal S1, Normal S2, PMI Normal Abdomen: Bowel Sounds Present, Soft, Non Tender, Non-Distended, No Hepato- splenomegaly Extremities: No clubbing, No cyanosis, No edema Skin: No rashes, No breakdown Lymphatic: No Cervical, Supraclavicular, or Inguinal Adenopathy Neurological: Cranial nerves II-XII grossly intact, Neuro grossly intact Psych/Mental Status: Normal Affect, Appropriate, Alert and oriented to time, place, person, mood and affect Vital Signs Temp Pulse Resp BP Pulse Ox 98.0 F 114 H 18 131/76 H 98 12/31/17 13:33 12/31/17 13:33 12/31/17 13:33 12/31/17 13:33 12/31/17 13:33 Oxygen Delivery Method Room Air Weight: 239 lb 4.988 oz Body Mass Index (BMI) 30.7 Orthostatic Vital Signs Start: 12/30/17 14:00 Freq: X1 Status: Active Protocol: Activity Type Activity Date Activity User E-Sign Co-Sign Detail Recorded Client Recorded Date Recorded By Document 12/30/17 14:00 [facility] [id number] 12/30/17 14:04 [facility] 12/30/17 14:00 Orthostatic Vitals Standing -Blood Pressure (90/60-120/80) 101/63 -Extremity Use Left Arm -Pulse Rate (60-100) 120 H Sitting -Blood Pressure (90/60-120/80) 99/64 -Extremity Use Left Arm -Pulse Rate (60-100) 113 H Lying -Blood Pressure (90/60-120/80) 136/75 H -Extremity Use Left Arm -Pulse Rate (60-100) 92 Intake and Output for Last 24 Hours 12/29/17 12/30/17 12/31/17 23:59 23:59 23:59 Intake Total 1946 / 1946 970 / 970 Output Total 450 / 450 250 / 250 Balance 1496 / 1496 720 / 720 Laboratory Tests Past 24 Hrs 12/30/17 12/31/17 12/31/17 23:03 05:40 05:40 WBC 9.4 RBC 3.58 L Hgb 9.8 L 9.7 L Hct 31.1 L 30.7 L MCV 85.8 MCH 27.1 MCHC 31.6 L RDW 14.1 RDW Differential 44.1 H Plt Count 627 H MPV 8.3 Immature Gran % (Auto) 0.200 Neut % (Auto) 65.3 Lymph % (Auto) 25.7 [place] % (Auto) 6.1 Eos % (Auto) 2.6 Baso % (Auto) 0.1 Absolute Neuts (auto) 6.2 Absolute Lymphs (auto) 2.43 Total Counted Not Reportable Sodium 138 Potassium 3.9 Chloride 105 Carbon Dioxide 25.0 Anion Gap 8 BUN 16 Creatinine 0.71 Estim Creat Clear Calc 135.07 Est GFR (MDRD) Af Amer 147 Est GFR (MDRD) Non-Af 121 BUN/Creatinine Ratio 22.4 H Glucose 136 H Calcium 8.2 L 12/31/17 10:10 WBC RBC Hgb 10.7 L Hct 33.6 L MCV MCH MCHC RDW RDW Differential Plt Count MPV Immature Gran % (Auto) Neut % (Auto) Lymph % (Auto) [place] % (Auto) Eos % (Auto) Baso % (Auto) Absolute Neuts (auto) Absolute Lymphs (auto) Total Counted Sodium Potassium Chloride Carbon Dioxide Anion Gap BUN Creatinine Estim Creat Clear Calc Est GFR (MDRD) Af Amer Est GFR (MDRD) Non-Af BUN/Creatinine Ratio Glucose Calcium Medical Necessity - Tobacco Use Smoking Status: Never smoker Assessment/Plan This is a 57 years old male patient who underwent bilateral knee replacement 3 weeks ago, was seen yesterday at [facility] because of dizziness, lightheadedness and nausea and he was sent to the ER, found to have GI bleed, anemia, presyncope and his bilateral knee pain is not controlled. #1 GI bleed: Patient still having scant amount of blood in the toilet. Most recent hemoglobin is 10.7 g/dL. Remains stable, no indication for transfusion. Vital signs are stable. His stool was positive for occult blood. Reportedly , patient had colonoscopy 3 years ago that was unremarkable according to Dr. Reyes. Dr. Reyes recommended colonoscopy as outpatient in 3-4 weeks. #2 anemia: Secondary to above in addition to some history of bilateral knee replacement. Today's hemoglobin is 10.7 g/dL, remained stable. No indication for transfusion. Plan to repeat H&H tomorrow morning. #3 presyncope: Patient mentioned that he gets dizzy and lightheaded when he gets severe bilateral knee pain. Today, he denies any more dizziness or lightheadedness. His vital signs are stable. #4 Intractable bilateral knee pain/status post bilateral knee replacement: Patient was on fentanyl patch and [place] as needed but pain was not controlled. Yesterday, fentanyl patch and [place] discontinued, started on IV morphine and OxyIR and without improvement. Today, he is still rating his pain as 8 out of 10 in severity. I contacted his orthopedic surgeon, Dr. Zamora's office and I spoke with his nurse who contacted the doctor and they mentioned that he ran out of orders as suggested pain management consultation as outpatient. I discussed the plan with the patient again and I recommended to start him on MS Contin twice daily as well as OxyIR as needed for breakthrough pain: Plan: We will start him on MS Contin, continue OxyIR as needed, anticipate discharge home tomorrow. #5 hypertension: Blood pressure stable, continue Norvasc. #6 hyperlipidemia: Continue statins. #7 depression: Continue Celexa. #8 DVT prophylaxis: SCDs. This note was generated with [employer] dictation software. It may contain incorrect words, spelling, and punctuation that were not noted in checking the note before signing. Code Visit Inpatient E&M: 31727 Subs Hosp L2
[2017-12-31] MEDS: morphine SR 15 MG Tablet PO ×2 (15:45→21:17)
--- NOTE | 2017-12-31 15:46 | CASEMGMT ---
Social Work Note SW informed pt that his outpatient therapy is scheduled for January 04 at 8am at [facility]. Pt states understanding. Plan: Discharge home with outpatient therapy Mireya Santiago LEAD SOFTWARE ARCHITECT, NUCLEAR EQUIPMENT TEST ENGINEER
[2017-12-31] MEDS: Atorvastatin Calcium 80 MG Tablet PO (21:17)
[2017-12-31] MEDS: Gabapentin 300 MG Capsule PO (21:18)
[2018-01-01] MEDS: oxyCODONE 5 MG Tablet PO ×3 (01:08→13:39)
[2018-01-01 01:59] VITALS: PULSE 112
[2018-01-01 04:59] VITALS: BP 163/85; PULSE 87; RESP 18; TEMP 36.4; O2SAT 97
--- NOTE | 2018-01-01 06:32 | PCM.PN.SRG ---
Subjective: Patient denies abdominal pain - Physical Exam General: Alert, Oriented x3 Oral: Moist Mucosa Neck: Supple Abdomen: Soft, Non Tender Vital Signs Temp Pulse Resp BP Pulse Ox 97.6 F L 87 18 163/85 H 97 01/01/18 04:59 01/01/18 04:59 01/01/18 04:59 01/01/18 04:59 01/01/18 04:59 Oxygen Delivery Method Room Air Weight: 108.55 kg Body Mass Index (BMI) 30.7 Orthostatic Vital Signs Start: 12/30/17 14:00 Freq: X1 Status: Active Protocol: Activity Type Activity Date Activity User E-Sign Co-Sign Detail Recorded Client Recorded Date Recorded By Document 12/30/17 14:00 [facility] [id number] 12/30/17 14:04 [facility] 12/30/17 14:00 Orthostatic Vitals Standing -Blood Pressure (90/60-120/80) 101/63 -Extremity Use Left Arm -Pulse Rate (60-100) 120 H Sitting -Blood Pressure (90/60-120/80) 99/64 -Extremity Use Left Arm -Pulse Rate (60-100) 113 H Lying -Blood Pressure (90/60-120/80) 136/75 H -Extremity Use Left Arm -Pulse Rate (60-100) 92 Intake and Output for Last 24 Hours 12/30/17 12/31/17 01/01/18 23:59 23:59 23:59 Intake Total 1946 / 1946 1450 / 1450 460 / 460 Output Total 450 / 450 250 / 250 Balance 1496 / 1496 1200 / 1200 460 / 460 Laboratory Tests Past 24 Hrs 12/31/17 10:10 Hgb 10.7 L Hct 33.6 L Medical Necessity - Tobacco Use Smoking Status: Never smoker Assessment/Plan Impression: anemia rectal bleeding Plan: colonoscopy as an outpatient as per Dr. Jensen's note Hct has been stable - no need for blood transfusions at this point Patient will follow up with Dr. Jensen as an outpatient
[2018-01-01 06:54] LABS: Hemoglobin 10.2 g/dl (13.0-16.5)
[2018-01-01 07:35] VITALS: BP 136/77; PULSE 108; RESP 18; TEMP 36.9; O2SAT 97
--- NOTE | 2018-01-01 08:04 | DCINST_ITS ---
You will use the following diet at home:: Cardiac Your food should be the consistency of: Regular Discharge Activity: Return to Normal Activity, May not drive while taking narcotic pain medications. Weight Bearing Status: Weight bearing as tolerated Keep extremity elevated above heart level: Left Leg, Right Leg Call your doctor if your incision/area has: Continuous Slow Oozing, Increased Pain/ Swelling, Increased Redness, Foul Smelling Discharge, Swelling at the incision site Call your doctor if you observe: Fever of 101 or Higher, Shortness of breath, Dizziness, Fainting spells, Chest pain, Increased palpitations (irregular heartbeat), Uncontrolled pain Allergies/Adverse Reactions: Allergies iohexol [From Omnipaque] Allergy (Verified 12/13/17 22:05) Rash Medications to take at Discharge Citalopram Hydrobromide [Citalopram HBr] 40 mg PO DAILY 07/05/16 Atorvastatin Calcium [Lipitor] 80 mg PO QHS 12/13/17 Hydrocortisone [Anusol Hc] 25 mg RECTAL BID PRN PRN #20 suppos. 12/28/17 Amlodipine [Norvasc] 10 mg PO DAILY 12/29/17 Ascorbic Acid [Vitamin C] 500 mg PO BIDCM 12/29/17 Aspirin [Aspirin, Baby] 81 mg PO DAILY@0800 12/29/17 Docusate Sodium [Colace] 200 mg PO BID 12/29/17 Ferrous Gluconate 325 mg PO BIDCM 12/29/17 Gabapentin [Neurontin] 300 mg PO QHS 12/29/17 Polyethylene Glycol 3350 [Miralax] 17 gm PO DAILY 12/29/17 Senna [Senokot] 2 tablet PO BID 12/29/17 Oxycodone [Oxyir] 5 - 10 mg PO Q6H PRN PRN 7 Days #30 tab 01/01/18 morphine SR tablet [Ms Contin] 15 mg PO BID 7 Days #14 tab 01/01/18 The following prescriptions were given: Oxycodone [Oxyir] 5 - 10 mg PO Q6H PRN PRN 7 Days #30 tab PRN Reason: Severe Pain (6-10/10) morphine SR tablet [Ms Contin] 15 mg PO BID 7 Days #14 tab Orders to be completed after discharge: CBC W/Diff, Automated Time Frame: 1 Week, Location: Laboratory Primary Care Physician: Billy De Santiago MD [Primary Care Provider] - Please follow up with your Primary Care Physician in: 1 week. Please Follow Up With: [employer] When: Wednesday Please Follow Up With: Carlos Zamora MD When: please call his office.
[2018-01-01] MEDS: Polyethylene Glycol 3350 17 GM PACKET PO (09:58)
[2018-01-01] MEDS: Ferrous Gluconate 325 MG Tablet PO (09:58)
[2018-01-01] MEDS: amLODIPine 10 MG Tablet PO (09:58)
[2018-01-01] MEDS: Docusate Sodium 100 MG Capsule 200 MG PO (09:58)
[2018-01-01] MEDS: Citalopram 40 MG TABLET PO (09:58)
[2018-01-01 10:00] VITALS: PULSE 99
[2018-01-01] MEDS: morphine SR 15 MG Tablet PO (10:01)
[2018-01-01] MEDS: Senna Tablet 2 TABLET PO (10:02)
--- NOTE | 2018-01-01 10:30 | NURSING ---
PT ASKING TO SPEAK WITH DR URIBE REGARDING CANCELLING DC HOME FOR TODAY. THIS RN SPOKE WITH DR URIBE. MS STATES PT TO BE DC'D TODAY & NEEDS TO FOLLOW UP WITH ORTHO SURGEON THAT PERFORMED HIS SURGERY. SCRIPTS FOR PAIN MEDICATIONS AVAILABLE FOR PT. EXPLAINED SAME TO PT - PT VERBALIZED UNDERSTANDING.
[2018-01-01 11:47] VITALS: BP 144/86; PULSE 102; RESP 18; TEMP 37.1; O2SAT 99
[2018-01-01 14:07] VITALS: BP 144/86; PULSE 102; RESP 18; TEMP 37.1; O2SAT 99
--- NOTE | 2018-01-01 14:26 | PCM.DC.SUM ---
Discharge Date and Diagnosis Date of Admission: 12/29/17 Date of Discharge: 01/01/18 - Primary Discharge Diagnosis #1 GI bleed, unclear source. #2 anemia. #3 presyncope. #4 intractable bilateral knee pain secondary to recent bilateral knee replacement. - Secondary Discharge Diagnosis Chronic Problems Depression (Chronic) Benign essential hypertension (Chronic) Low back pain (Chronic) Urinary incontinence (Chronic) Obesity (BMI 30.0-34.9) (Chronic) Elevated PSA (Chronic) recent biopsies done by DR. Monk are negative Hospital Course and Treatment Imaging Results: Clinical Impression(s) from Imaging Studies Chest X-Ray 12/29/17 13:19 IMPRESSION: No acute cardiopulmonary abnormalities or changes. Electronically Signed: Dorys Madden MD at 13:56 EDT Tel Direct: [phone], Service support , Chest CTA 12/29/17 14:14 IMPRESSION: There is no evidence of pulmonary embolism in the main pulmonary arteries. The peripheral branches are not adequately evaluated due to suboptimal contrast bolus and breathing motion artifact. There is dependent atelectasis in both lungs. There are no focal parenchymal abnormalities. There is no pleural effusion or significant lymphadenopathy. Electronically Signed: Dorys Madden MD at 16:08 EDT Tel Direct: [phone], Service support , Dr. Reyes, general surgery. Operations: None Procedures: None Summary of Care Provided: Patient seen and examined on the day of discharge and appeared to be stable to be discharged home. He has normal rectal bleeding. He continued to complain of bilateral knee pain. His pain medication adjusted couple of times and still his pain is not controlled. His vital signs are stable. His hemoglobin is stable. - Physical Exam General: Alert, Oriented x3, Cooperative, No apparent distress. HEENT: Atraumatic, PERRLA, EOMI. Neck: Supple, No JVD, Negative Carotid Bruits, Trachea Midline, Thyroid Normal. Lungs: Clear to auscultation, Normal air movement, No rhonchi, No wheeze, No rales. Cardiovascular: Regular rate, Regular Rhythm, Normal S1, Normal S2, PMI Normal. Abdomen: Bowel Sounds Present, Soft, Non Tender, Non-Distended, No Hepato-splenomegaly. Extremities: No clubbing, No cyanosis, No edema. Surgical incisions of both knees are dry and clean. Skin: No rashes, No breakdown. Neurological: Neuro grossly intact Vital Signs are stable. Hospital course: The patient is a 57 year old M was sent to the emergency room from [facility] because of dizziness, lightheadedness and nausea as well as blood in the stool and she was found to have GI bleed with acute anemia as well as presyncope that was attributed to severe bilateral knee pain. Patient was treated with IV fluids and serial H&H and his hemoglobin remained stable without indication for blood transfusion. The patient mentioned that he has been having this GI bleed for almost one year. Recently, he underwent bilateral knee replacement and he was on Lovenox injections for DVT prophylaxis. According to Dr. Reyes, patient had colonoscopy 3 years ago and that was unremarkable. Patient complained of uncontrollable bilateral knee replacement. He was discharged from the rehab 1 day before the admission and he was discharged on fentanyl patch and [place] as needed for pain. He mentioned that his pain never got under control since his surgery. His orthopedic surgeon is aware. I started him on IV morphine and OxyIR as needed without improvement. Next day, patient was started on on MS Contin and OxyIR as needed after discontinuation of IV morphine and again, he stated no improvement of his knee pain. He mentioned that his pain is almost the same since his surgery and when he was at the rehab unit and also when he went home. He has been doing okay with physical therapy. He was evaluated by PT OT and he was refused to go back to rehab for further treatment. I contacted his orthopedic surgeon office and I spoke with his nurse who stated that Dr. Zamora was notified and he has no more options for pain control. He suggested consultation of pain management. On the day of discharge, patient mentioned that with MS Contin, he was able to sleep last night. Patient discharged home in a stable medical condition, discharged on MS Contin twice daily and OxyIR as needed, fentanyl patch and [place] discontinued, order given to repeat CBC in 1 week, continued on his chronic home medication without any changes, recommended to follow-up with his orthopedic surgery regarding uncontrolled bilateral knee pain, suggested referral to pain management as outpatient, plan to follow-up with Dr. Reyes in 3-4 weeks for upper endoscopy and colonoscopy. Discharge Activity: Return to Normal Activity, May not drive while taking narcotic pain medications. Weight Bearing Status: Weight bearing as tolerated Keep extremity elevated above heart level: Left Leg, Right Leg Call your doctor if your incision/area has: Continuous Slow Oozing, Increased Pain/ Swelling, Increased Redness, Foul Smelling Discharge, Swelling at the incision site Call your doctor if you observe: Fever of 101 or Higher, Shortness of breath, Dizziness, Fainting spells, Chest pain, Increased palpitations (irregular heartbeat), Uncontrolled pain Home Medications: Medications to take at Discharge Citalopram Hydrobromide [Citalopram HBr] 40 mg PO DAILY 07/05/16 Atorvastatin Calcium [Lipitor] 80 mg PO QHS 12/13/17 Hydrocortisone [Anusol Hc] 25 mg RECTAL BID PRN PRN #20 suppos. 12/28/17 Amlodipine [Norvasc] 10 mg PO DAILY 12/29/17 Ascorbic Acid [Vitamin C] 500 mg PO BIDCM 12/29/17 Aspirin [Aspirin, Baby] 81 mg PO DAILY@0800 12/29/17 Docusate Sodium [Colace] 200 mg PO BID 12/29/17 Ferrous Gluconate 325 mg PO BIDCM 12/29/17 Gabapentin [Neurontin] 300 mg PO QHS 12/29/17 Polyethylene Glycol 3350 [Miralax] 17 gm PO DAILY 12/29/17 Senna [Senokot] 2 tablet PO BID 12/29/17 Oxycodone [Oxyir] 5 - 10 mg PO Q6H PRN PRN 7 Days #30 tab 01/01/18 morphine SR tablet [Ms Contin] 15 mg PO BID 7 Days #14 tab 01/01/18 Following Prescrptions Were Given to Patient: Oxycodone [Oxyir] 5 - 10 mg PO Q6H PRN PRN 7 Days #30 tab PRN Reason: Severe Pain (6-06/22) morphine SR tablet [Ms Contin] 15 mg PO BID 7 Days #14 tab Primary Care Physician: Billy De Santiago MD [Primary Care Provider] - Please follow up with your Primary Care Physician in: 1 week. Please Follow Up With: [facility] When: Wednesday Please Follow Up With: Carlos Zamora MD When: please call his office. Disposition: Home Minutes spent on discharge:: 34 Medical Necessity - Tobacco Use Smoking Status: Never smoker Meaningful Use Info Meaningful Use Diagnoses (Choose all that apply): None applicable Code Visit Inpatient E&M: 68340 Disch Hosp
--- NOTE | 2018-01-01 14:34 | DS.PCM_ITS ---
Discharge Date and Diagnosis Date of Admission: 12/29/17 Date of Discharge: 01/01/18 - Primary Discharge Diagnosis #1 GI bleed, unclear source. #2 anemia. #3 presyncope. #4 intractable bilateral knee pain secondary to recent bilateral knee replacement. - Secondary Discharge Diagnosis Chronic Problems Depression (Chronic) Benign essential hypertension (Chronic) Low back pain (Chronic) Urinary incontinence (Chronic) Obesity (BMI 30.0-34.9) (Chronic) Elevated PSA (Chronic) recent biopsies done by DR. Monk are negative Hospital Course and Treatment Imaging Results: Clinical Impression(s) from Imaging Studies Chest X-Ray 12/29/17 13:19 IMPRESSION: No acute cardiopulmonary abnormalities or changes. Electronically Signed: Dorys Madden MD at 13:56 EDT Tel Direct: [phone], Service support , Chest CTA 12/29/17 14:14 IMPRESSION: There is no evidence of pulmonary embolism in the main pulmonary arteries. The peripheral branches are not adequately evaluated due to suboptimal contrast bolus and breathing motion artifact. There is dependent atelectasis in both lungs. There are no focal parenchymal abnormalities. There is no pleural effusion or significant lymphadenopathy. Electronically Signed: Dorys Madden MD at 16:08 EDT Tel Direct: [phone], Service support , Dr. Reyes, general surgery. Operations: None Procedures: None Summary of Care Provided: Patient seen and examined on the day of discharge and appeared to be stable to be discharged home. He has normal rectal bleeding. He continued to complain of bilateral knee pain. His pain medication adjusted couple of times and still his pain is not controlled. His vital signs are stable. His hemoglobin is stable. - Physical Exam General: Alert, Oriented x3, Cooperative, No apparent distress. HEENT: Atraumatic, PERRLA, EOMI. Neck: Supple, No JVD, Negative Carotid Bruits, Trachea Midline, Thyroid Normal. Lungs: Clear to auscultation, Normal air movement, No rhonchi, No wheeze, No rales. Cardiovascular: Regular rate, Regular Rhythm, Normal S1, Normal S2, PMI Normal. Abdomen: Bowel Sounds Present, Soft, Non Tender, Non-Distended, No Hepato- splenomegaly. Extremities: No clubbing, No cyanosis, No edema. Surgical incisions of both knees are dry and clean. Skin: No rashes, No breakdown. Neurological: Neuro grossly intact Vital Signs are stable. Hospital course: The patient is a 57 year old M was sent to the emergency room from [facility] because of dizziness, lightheadedness and nausea as well as blood in the stool and she was found to have GI bleed with acute anemia as well as presyncope that was attributed to severe bilateral knee pain. Patient was treated with IV fluids and serial H&H and his hemoglobin remained stable without indication for blood transfusion. The patient mentioned that he has been having this GI bleed for almost one year. Recently, he underwent bilateral knee replacement and he was on Lovenox injections for DVT prophylaxis. According to Dr. Ryees, patient had colonoscopy 3 years ago and that was unremarkable. Patient complained of uncontrollable bilateral knee replacement. He was discharged from the rehab 1 day before the admission and he was discharged on fentanyl patch and Prosperity as needed for pain. He mentioned that his pain never got under control since his surgery. His orthopedic surgeon is aware. I started him on IV morphine and OxyIR as needed without improvement. Next day, patient was started on on MS Contin and OxyIR as needed after discontinuation of IV morphine and again, he stated no improvement of his knee pain. He mentioned that his pain is almost the same since his surgery and when he was at the rehab unit and also when he went home. He has been doing okay with physical therapy. He was evaluated by PT OT and he was refused to go back to rehab for further treatment. I contacted his orthopedic surgeon office and I spoke with his nurse who stated that Dr. Zamora was notified and he has no more options for pain control. He suggested consultation of pain management. On the day of discharge, patient mentioned that with MS Contin, he was able to sleep last night. Patient discharged home in a stable medical condition, discharged on MS Contin twice daily and OxyIR as needed, fentanyl patch and Prosperity discontinued, order given to repeat CBC in 1 week, continued on his chronic home medication without any changes, recommended to follow-up with his orthopedic surgery regarding uncontrolled bilateral knee pain, suggested referral to pain management as outpatient, plan to follow-up with Dr. Reyes in 3-4 weeks for upper endoscopy and colonoscopy. Discharge Activity: Return to Normal Activity, May not drive while taking narcotic pain medications. Weight Bearing Status: Weight bearing as tolerated Keep extremity elevated above heart level: Left Leg, Right Leg Call your doctor if your incision/area has: Continuous Slow Oozing, Increased Pain/ Swelling, Increased Redness, Foul Smelling Discharge, Swelling at the incision site Call your doctor if you observe: Fever of 101 or Higher, Shortness of breath, Dizziness, Fainting spells, Chest pain, Increased palpitations (irregular heartbeat), Uncontrolled pain Home Medications: Medications to take at Discharge Citalopram Hydrobromide [Citalopram HBr] 40 mg PO DAILY 07/05/16 Atorvastatin Calcium [Lipitor] 80 mg PO QHS 12/13/17 Hydrocortisone [Anusol Hc] 25 mg RECTAL BID PRN PRN #20 suppos. 12/28/17 Amlodipine [Norvasc] 10 mg PO DAILY 12/29/17 Ascorbic Acid [Vitamin C] 500 mg PO BIDCM 12/29/17 Aspirin [Aspirin, Baby] 81 mg PO DAILY@0800 12/29/17 Docusate Sodium [Colace] 200 mg PO BID 12/29/17 Ferrous Gluconate 325 mg PO BIDCM 12/29/17 Gabapentin [Neurontin] 300 mg PO QHS 12/29/17 Polyethylene Glycol 3350 [Miralax] 17 gm PO DAILY 12/29/17 Senna [Senokot] 2 tablet PO BID 12/29/17 Oxycodone [Oxyir] 5 - 10 mg PO Q6H PRN PRN 7 Days #30 tab 01/01/18 morphine SR tablet [Ms Contin] 15 mg PO BID 7 Days #14 tab 01/01/18 Following Prescrptions Were Given to Patient: Oxycodone [Oxyir] 5 - 10 mg PO Q6H PRN PRN 7 Days #30 tab PRN Reason: Severe Pain (6-06/22) morphine SR tablet [Ms Contin] 15 mg PO BID 7 Days #14 tab Primary Care Physician: Billy De Santiago MD [Primary Care Provider] - Please follow up with your Primary Care Physician in: 1 week. Please Follow Up With: [employer] When: Wednesday Please Follow Up With: Carlos Zamora MD When: please call his office. Disposition: Home Minutes spent on discharge:: 34 Medical Necessity - Tobacco Use Smoking Status: Never smoker Meaningful Use Info Meaningful Use Diagnoses (Choose all that apply): None applicable Code Visit Inpatient E&M: 20519 Disch Hosp
--- NOTE | 2018-01-05 14:57 | CASEMGMT ---
RN CM Discharge Follow-up Phone Call: EDWARDO: Imer Strata: 3 Call Date: 12/2517 Discharge Date: 01/01/18 Time of Call: 1455 Duration: 1 min Admitting Diagnosis: Bilateral knee pain s/p surgery, lower GI bleed RN JONNATHAN attempted to complete follow-up phone call. No answer and unable to leave message at this time due to mailbox full. TANYA DE SANTIAGO will attempt again later.
== END 2018-01-01 14:07 | disposition home or self-care (01) | DRG 378 ==
LOC: ED 14:03 → MS3 16:53
PROVIDERS: Surgery; Admitting Provider Internal Medicine; Emergency Provider Emergency Medicine; Family Provider Family Medicine; PCP Family Medicine; Visit Provider Hospitalist
DX: K92.2 Gastrointestinal hemorrhage, unspecified (principal); D62 Acute posthemorrhagic anemia; Z96.653 Presence of artificial knee joint, bilateral; R55 Syncope and collapse; D64.9 Anemia, unspecified; D50.8 Other iron deficiency anemias; F32.9 Major depressive disorder, single episode, unspecified; I10 Essential (primary) hypertension; E66.9 Obesity, unspecified; Z86.73 Personal history of transient ischemic attack (TIA), and cerebral infarction without residual deficits; Z68.30 Body mass index [BMI] 30.0-30.9, adult; Z79.82 Long term (current) use of aspirin; E78.5 Hyperlipidemia, unspecified; M54.5 Low back pain; R32 Unspecified urinary incontinence; R97.20 Elevated prostate specific antigen [PSA]
CPT/HCPCS: 36415; 71045; 71275; 80048; 82274; 84484; 85014; 85018; 85025; 85610; 86850; 86900; 86920; 86922; 93005; 97110; 97162; 97166; 97530; 97802; 99285; J7030; Q9967; A4216; J2405

== ENCOUNTER 2018-04-27 14:19 | Emergency (ER) | payer BC, SELFPAY ==
[2018-04-27 14:20] VITALS: BP 203/107; PULSE 94; RESP 16; TEMP 37.4; O2SAT 97; BMI 30.8
[2018-04-27] MEDS: Morphine 4 MG/ML Syringe IV ×3 (15:39→19:32)
--- NOTE | 2018-04-27 16:11 | ED.VISSUMM ---
- ER Visit Summary Date of Service: 04/27/18 Chief Complaint: Back pain History of Present Illness: The patient is a 57 M who presents with back pain that became worse today. Patient went to an urgent care and was referred here for further evaluation. Patient states he lost control of his bowels once and his bladder once. Patient states the pain is sharp and aching. Patient states pain is over the lower lumbar area. Patient states pain is worse with movement. Patient states the pain improves when he is still. Patient admits to some tingling in his legs. Patient denies any weakness. Patient denies any numbness. Patient denies any radiation of the pain. Patient denies any saddle anesthesia. Physical Examination: Vital signs are stable except for an elevated blood pressure of 203/107. Patient is in no acute distress. Patient is afebrile. Heart was regular rate and rhythm. Lungs are clear and equal bilaterally. Abdomen is soft. Bowel sounds are normal. There is no tenderness. Cranial nerves II through XII are intact. Strength is 5/5 bilaterally upper and lower extremities. There are no sensory deficits noted. Deep tendon reflexes are 2+/4 bilaterally. The remaining physical exam is within normal limits. Test Results: MRI does not show any evidence of cauda equina syndrome. There is some bulging disks at L4-L5 and L5-S1. There are mild degenerative changes noted. Emergency Department Course and Treatment: Patient was given morphine and Ativan here in the emergency department. Patient was given subsequent doses of morphine. Patient felt better on reevaluation. Patient was given a prescription for a short course of [place]. Patient was instructed to follow-up with his primary care physician in 5-7 days. Patient understood and was agreeable with the plan. All questions were answered. Disposition: Discharge home Impression: Acute low back pain This note was generated with [employer] dictation software. It may contain incorrect words, spelling, and punctuation that were not noted in review of the chart prior to signing ED Disposition - Plan for ED Patient: Disposition: Home or Assisted Living Chief Complaint: Back Diagnosis: Low back pain Instructions: ED Low Back Pain Injury Prescriptions: Hydrocodone Bitart/Apap 5-325 [[place] 5MG-325MG] 1 tab PO Q6H PRN PRN 3 Days #10 tab PRN Reason: Pain Referrals: Billy De Santiago MD [Primary Care Provider] -
[2018-04-27] MEDS: LORazepam 2 MG/ML Syringe 1 MG IV (16:21)
[2018-04-27 19:36] VITALS: BP 185/98; PULSE 79; RESP 16; O2SAT 96
[2018-04-27] MEDS: proCHLORPERazine 10 MG/2 ML Vial IV (20:38)
[2018-04-27] MEDS: 0.9% Normal Saline 1,000 ML 999 ML IV (20:38)
[2018-04-27] MEDS: DiphenhydrAMINE 50 MG/ML Syringe 25 MG IV (20:38)
--- NOTE | 2018-04-27 20:39 | ED.RN ---
MC WAS MADE AWARE THAT THE PT'S SBP IN THE 180'S AND HEAD FEELS BAD.ORDERS RECIEVED/
[2018-04-27 21:27] VITALS: BP 169/111; PULSE 80; RESP 20; O2SAT 98
--- NOTE | 2018-04-27 21:30 | ED.RN ---
made md aware that the pt feels much better and his sbp is 160's.okay to discharge.
== END 2018-04-27 21:30 | disposition home or self-care (01) ==
PROVIDERS: Emergency Provider Emergency Medicine; Family Provider Family Medicine; PCP Family Medicine
DX: M54.5 Low back pain (principal); I10 Essential (primary) hypertension
CPT/HCPCS: 72148; 99283; J7030; A4216

== ENCOUNTER 2018-06-10 09:00 | Outpatient (RCR) | payer BC, SELFPAY ==
--- NOTE | 2018-01-04 08:46 | HP.PTEVAL ---
Patient's Visit Information ASHWINI HAYES is a 57 year old M referred to Physical Therapy by MUSA Lochkart with a diagnosis of Bilateral TKR. Date of Evaluation: 01/04/18 Physical Therapist: Ivanna Camacho - Visit Plan Frequency: 3x /Week Duration: 4 Weeks Plan: PT called to speak to MD Dr. Zamora secondary to pain level and bleeding from the rectum. Focus on LE ROM, strength and functional mobility - Subjective Subjective: Bilateral knee replacments December 08, [address] Zamora- [facility]- stayed until that Wednesday then transfered to [facility] 4th floor and was there for a 2 weeks. Then went back to see Dr. Zamora and he passed out and ended up being transfered to [facility] for 3 days due to blood pressure issues and knees. Blood pressure is normal and he will follow up PCP Dr. De Santiago. Came home 01/01- two story home with bedroom/bathroom on 2nd floor- with hand rail- able to go up/down with cane and hand rails. Lives with and kids- can help as needed. Before surgery fully I but 2 weeks before surgery was off work due to not being able to walk. Right knee had torn ACL, meniscus and OA and the left was completely full of OA. Patient reports that he is miserable- pooping blood and lots of pain- has not had a bowel movement in 2 days. Has been in contact with PCP and surgeon. Hasn't eaten anything in 2 days. Sleep: disturbed-unable. Sharp, burning, aching pain. Left is worse than right. Worst: 10/10. Agg: movement Eases: walking, exercises Best: 9/10. Pain is located in the knees itself. Sometimes radiates to the left him and down to the left ankle. 10% of the time has N/T in the toes. 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 Return to work February 01, 2018 but subject to change. Goes back to [facility] January 13, [address] Castro as soon as he can get in. PMHx/Meds: no change since surgery. - Objective Posture: FH, RS. Observation: does not sit still throughout evaluation- moving, squirming, putting his head down. His face is pale and writhes in pain. Incisions bilaterally healing well- no s/s of infection. Vitals: 125/75, 96% O2 sats, 104 bmp. Gait: antalgic- uses a straight cane- decrease heel strike/toe off bilaterally secondary to poor ROM. SLS: unable but will weight shift with UE A. HR/TR: able with UE A. Palpation: significantly tender throughout bilateral knees - no pain in calf or quad/hamstring. ROM: left: 35 degrees-90 degrees, right: 20-95 degrees. Strength: Ankle: 5/5, Knee: 2+/5 throughout, Hip: 4/5 can straight leg raise but has a significant lag secondary to ROM - Goals Goal 1:: Patient will be I with HEP and progression Goal Time Frame: 4-6 Weeks Goal 2:: Patient will ambulate >300 feet with a normalized gait pattern and LRD Goal Time Frame: 4-6 Weeks Goal 3:: Patient will asc/desc 8 stairs recip with 1 HR and normal pattern Goal Time Frame: 4-6 Weeks Goal 4:: Patient will demo 0-115 degrees of ROM in bilateral LE Goal Time Frame: 4-6 Weeks - Rehabilitation Potential Physical Therapy Diagnosis: Patient presents with hypomobility- he has decreased ROM, strength and muscular endurance s/p bilateral TKR. Rehabilitation Potential: Fair - Anticipated Interventions Patient/Client Instruction: Educate patient on: Benefits of Fitness Program For the Purpose of:: To improve ability to perform ADL's Therapeutic Exercise to Include: Strength training, Endurance training, Balance training, Body mechanics, Postural training, Flexibilty training, Gait and locomotor training, Passive ROM, Active ROM, Dynamic Lumbar Stabilization For the Purpose of:: To improve muscle performance and motor function TENS: Yes Cryotherapy (ice pack, ice massage): Yes Thermo therapy (hot pack): Yes Ultrasound (thermal/non thermal): No Vasopneumatic device: Yes For the Purpose of:: To decrease pain Thank you for the opportunity to evaluate your patient. For Medicare and Medicare HMO plans, please review the plan of care and approve it. It will need to be FAXED BACK to us at [phone] for Medicare purposes. Please let me know if there are questions or concerns regarding this plan of care. Physician Signature: Date:
--- NOTE | 2018-02-04 09:45 | HP.PTREVAL_ITS ---
Jazmin Terrazas, NARAYAN-C, It has been my pleasure to treat ASHWINI HAYES over the last 12 visits for Bilateral TKR. Please see the progress note below for an update on the physical therapy plan of care! Subjective: Patient reports that his knees are pretty sore. Saw last week who couldn't understand why he is in so much pain- but the knees look good- he is still struggling to sleep- is out of pain medication but plans to start it again today. Worst: 05/23 Agg: yard work (standing). Eases: walking or moving, ice. Had x-rays taken and they look good. Feels like he is moving better- no cane on a daily basis but uses it if he is on uneven terrain or unfamiliar areas. 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 Goes back to March 07. Patient reports that he is less than 1/2 of where he wants to be. Objective/Function: Posture: FH, RS. Observation: sitting still today in chair Incisions bilaterally healing well- no s/s of infection. Gait: antalgic- No AD- decrease heel strike/toe off bilaterally secondary to poor ROM wide GUILLE with increased arm swing. SLS: 3 seconds bilaterally. HR/TR: able with UE A. Palpation: significantly tender throughout bilateral knees - no pain in calf or quad/hamstring. ROM: left: 15-110 degrees, right: 5-110 degrees. Strength: Ankle: 5/5, Knee: 3-/5 throughout, Hip: 4/5 can straight leg raise but has pain Plan Plan: Continue with POC- 3x a week for 4 weeks. Goals Goal 1:: Patient will be I with HEP and progression Goal Time Frame: 4-6 Weeks Goal 2:: Patient will ambulate >300 feet with a normalized gait pattern and LRD Goal Time Frame: 4-6 Weeks Goal 3:: Patient will asc/desc 8 stairs recip with 1 HR and normal pattern Goal Time Frame: 4-6 Weeks Goal 4:: Patient will demo 0-115 degrees of ROM in bilateral LE Goal Time Frame: 4-6 Weeks Anticipated Interventions Patient/Client Instruction: Educate patient on: Benefits of Fitness Program For the Purpose of:: To improve ability to perform ADL's Therapeutic Exercise to Include: Strength training, Endurance training, Balance training, Body mechanics, Postural training, Flexibilty training, Gait and locomotor training, Passive ROM, Active ROM, Dynamic Lumbar Stabilization For the Purpose of:: To improve muscle performance and motor function TENS: Yes Cryotherapy (ice pack, ice massage): Yes Thermo therapy (hot pack): Yes Ultrasound (thermal/non thermal): No Vasopneumatic device: Yes For the Purpose of:: To decrease pain Please do not hesitate to contact me at [phone] by phone or Fax: if you have questions or concerns regarding this new plan of care! Sincerely, Ivanna Camacho
--- NOTE | 2018-03-04 09:33 | HP.PTREVAL_ITS ---
Jazmin Terrazas, NARAYAN-C, It has been my pleasure to treat ASHWINI HAYES over the last 22 visits for Bilateral TKR. Please see the progress note below for an update on the physical therapy plan of care! Subjective: Patient reports that the knees are coming along- the pain is still a 6-7/10- the right knee gives out on him every once in awhile- but feels we are making progress. Right is mildly worse that the left. Feels that he still wants to continue therapy. Does not have a return to work date- talked to who was thinking May- goes back to [facility] on Wednesday. Objective/Function: posture: FH, RS. Observation: sitting still today in chair Incisions bilaterally healing well- no s/s of infection. Gait: antalgic- No AD- decrease heel strike/toe off bilaterally SLS: 10 seconds bilaterally. HR/TR : able with UE A. Palpation: significantly tender throughout bilateral knees - no pain in calf or quad/hamstring. ROM: left: 0-115 degrees, right:0-120 degrees. Strength: Ankle: 5/5, Knee: 4/5 throughout, Hip: 4+/5 can straight leg raise but has pain Plan Plan: Continue 3x a week for 4 weeks- progress with strength and functional mobility Goals Goal 1:: Patient will be I with HEP and progression Goal Time Frame: 4-6 Weeks Goal Progress: Progressing Goal 2:: Patient will ambulate >300 feet with a normalized gait pattern and LRD Goal Time Frame: 4-6 Weeks Goal Progress: Progressing Goal 3:: Patient will asc/desc 8 stairs recip with 1 HR and normal pattern Goal Time Frame: 4-6 Weeks Goal Progress: Progressing Goal 4:: Patient will demo 0-115 degrees of ROM in bilateral LE Goal Time Frame: 4-6 Weeks Goal Progress: Goal Met Anticipated Interventions Patient/Client Instruction: Educate patient on: Benefits of Fitness Program For the Purpose of:: To improve ability to perform ADL's Therapeutic Exercise to Include: Strength training, Endurance training, Balance training, Body mechanics, Postural training, Flexibilty training, Gait and locomotor training, Passive ROM, Active ROM, Dynamic Lumbar Stabilization For the Purpose of:: To improve muscle performance and motor function TENS: Yes Cryotherapy (ice pack, ice massage): Yes Thermo therapy (hot pack): Yes Ultrasound (thermal/non thermal): No Vasopneumatic device: Yes For the Purpose of:: To decrease pain Please do not hesitate to contact me at [phone] by phone or Fax: if you have questions or concerns regarding this new plan of care! Sincerely, Ivanna Camacho
--- NOTE | 2018-04-11 10:17 | HP.PTREVAL_ITS ---
Jazmin Terrazas, NARAYAN-C, It has been my pleasure to treat ASHWINI HAYES over the last 34 visits for Bilateral TKR. Please see the progress note below for an update on the physical therapy plan of care! Subjective: Patient reports that he feels he is 50% back to normal function of both knees. His pain level is normally a 6/10 but had a 7/10 after sitting for 45 minutes. He reports therapy is going well but he is still challenged with box lifts from the ground. He goes back to [facility] on Wednesday. He is concerned about going back to work due to his job duties of sitting, standing, stooping and being on his knees for 12 hours. Objective/Function: Posture: FH, RS. Observation: sitting still today in chair Incisions bilaterally healing well- no s/s of infection. Gait: antalgic- No AD- decrease heel strike/toe off bilaterally HR/TR: able with UE A. ROM: left: 0-115 degrees, right:0-120 degrees. Strength: Ankle: 5/5, Knee: 4+/5 throughout , Hip: 4+/5. Plan Plan: Possible Work Conditioning Goals Goal 1:: Patient will be I with HEP and progression Goal Time Frame: 4-6 Weeks Goal Progress: Goal Met Goal 2:: Patient will ambulate >300 feet with a normalized gait pattern and LRD Goal Time Frame: 4-6 Weeks Goal Progress: Progressing Goal 3:: Patient will asc/desc 8 stairs recip with 1 HR and normal pattern Goal Time Frame: 4-6 Weeks Goal Progress: Progressing Goal 4:: Patient will demo 0-115 degrees of ROM in bilateral LE Goal Time Frame: 4-6 Weeks Goal Progress: Goal Met Anticipated Interventions Patient/Client Instruction: Educate patient on: Benefits of Fitness Program For the Purpose of:: To improve ability to perform ADL's Therapeutic Exercise to Include: Strength training, Endurance training, Balance training, Body mechanics, Postural training, Flexibilty training, Gait and locomotor training, Passive ROM, Active ROM, Dynamic Lumbar Stabilization For the Purpose of:: To improve muscle performance and motor function TENS: Yes Cryotherapy (ice pack, ice massage): Yes Thermo therapy (hot pack): Yes Ultrasound (thermal/non thermal): No Vasopneumatic device: Yes For the Purpose of:: To decrease pain Please do not hesitate to contact me at [phone] by phone or Fax: if you have questions or concerns regarding this new plan of care! Sincerely, Ivanna Camacho
--- NOTE | 2018-05-13 10:20 | HP.PTREVAL ---
Jazmin Terrazas, NARAYAN-C, It has been my pleasure to treat ASHWINI HAYES over the last 46 visits for Bilateral TKR. Please see the progress note below for an update on the physical therapy plan of care! Subjective: Pain is getting better- 4/10. Feels like he turned a corner. MD wants him to continue work conditioning as he is not going back to work. Follow up again Jun 09. Work conditioning is helping- really hard to bend down and lift, getting on his knees. Bike/TM are going well no problems. Increases in therapy due to bending goes up to a 5/10. The back is painful right in the back but its getting better. Objective/Function: Posture: FH, RS sits in slumped position. Observation: sitting still today in chair. Incisions bilaterally healing well- no s/s of infection- no adhesions. Gait: antalgic- No AD- decrease heel strike/toe off bilaterally HR/TR: able with UE A. SLS: left 4 seconds right 11 seconds Strength: Ankle: 5/5, Knee: 4+/5 throughout, Hip: 4+/5. Plan Plan: Continue work conditioning per MD- focus on hour of work related tasks and do I 30-60 minutes of cardio in clinic Goals Goal 1:: Patient will be I with HEP and progression Goal Time Frame: 4-6 Weeks Goal Progress: Goal Met Goal 2:: Patient will ambulate >300 feet with a normalized gait pattern and LRD Goal Time Frame: 4-6 Weeks Goal Progress: Progressing Goal 3:: Patient will asc/desc 8 stairs recip with 1 HR and normal pattern Goal Time Frame: 4-6 Weeks Goal Progress: Progressing Goal 4:: Patient will demo 0-115 degrees of ROM in bilateral LE Goal Time Frame: 4-6 Weeks Goal Progress: Goal Met Goal 5:: Patient will lift box floor to counter x 10 with good technique. Goal Time Frame: 4-6 Weeks Anticipated Interventions Patient/Client Instruction: Educate patient on: Benefits of Fitness Program For the Purpose of:: To improve ability to perform ADL's Therapeutic Exercise to Include: Strength training, Endurance training, Balance training, Body mechanics, Postural training, Flexibilty training, Gait and locomotor training, Passive ROM, Active ROM, Dynamic Lumbar Stabilization For the Purpose of:: To improve muscle performance and motor function TENS: Yes Cryotherapy (ice pack, ice massage): Yes Thermo therapy (hot pack): Yes Ultrasound (thermal/non thermal): No Vasopneumatic device: Yes For the Purpose of:: To decrease pain Please do not hesitate to contact me at [phone] by phone or if you have questions or concerns regarding this new plan of care! Sincerely, Ivanna Camacho
--- NOTE | 2018-06-10 09:31 | HP.PTDCSUM_ITS ---
HP - PT D/C Summary It has been my pleasure to treat ASHWINI HAYES under orders from CECI Lockhart C, for the diagnosis of Bilateral TKR for a total of 60 visit(s). Discharge Date: Please see the following information for a summary of their discharge status. - Subjective Subjective: Patient reports that he goes back to work July 03. The knees still burn and ache- he still has problems bending down and getting in/out of the car. Still working on kneeling on the knee. Patient feels that he is 70% better. Pain level is currently a 3/10 Worst: 4/10. The back is good again. - Pain Left Knee Pain Intensity (Out of 10): 4 Right Knee Pain Intensity (Out of 10): 4 Back Pain Intensity (Out of 10): 4 - Overall Improvement % Improvement: 70 - Objective Objective/Function: Posture: good throughout session. Observation: sitting still today in chair. Incisions bilaterally healing well- no s/s of infection- no adhesions. Gait: slightly antalgic decrease heel.toe pattern HR/TR: able with UE A. SLS: left 22 seconds right 30 seconds Strength: Ankle: 5/5, Knee: 5/5 throughout, Hip: 5/5. - Goals Goal 1:: Patient will be I with HEP and progression Goal Progress: Goal Met Goal 2:: Patient will ambulate >300 feet with a normalized gait pattern and LRD Goal Progress: Progressing Goal 3:: Patient will asc/desc 8 stairs recip with 1 HR and normal pattern Goal Progress: Progressing Goal 4:: Patient will demo 0-115 degrees of ROM in bilateral LE Goal Progress: Goal Met Goal 5:: Patient will lift box floor to counter x 10 with good technique. - Plan Plan: Discharge to HEP - D/C Information If there are questions or concerns regarding this patient's physical therapy, please feel free to call me at [phone]. Thank you for the referral of this patient. Sincerely, Ivanna Camacho
== END 2018-06-10 14:21 | disposition home or self-care (01) ==
LOC: PT 09:00
PROVIDERS: Family Provider Family Medicine; PCP Family Medicine; Visit Provider Nurse Practitioner Acute Care
DX: Z96.653 Presence of artificial knee joint, bilateral (principal)
CPT/HCPCS: 97014; 97110; 97163; 97164; 97530; G0283

== ENCOUNTER 2018-08-07 19:50 | Observation (INO) | payer BC, SELFPAY ==
[2018-08-07] VITALS (8 sets, daily range): BP systolic 154–189; BP diastolic 78–110; PULSE 68–89; RESP 12–20; TEMP 36.6–37.6; O2SAT 97–99; BMI 33.3
--- NOTE | 2018-08-07 19:53 | CT_ITS ---
STUDY: CT BRAIN WITHOUT CONTRAST REASON FOR EXAM: Male, 58 years old. Weakness and confusion RADIATION DOSAGE (If Supplied By Facility): CTDIvol = ( 57.90 ) mGy, DLP = ( 1067.18 ) mGycm TECHNIQUE: Transaxial CT imaging of the brain was performed without administration of intravenous contrast material. Individualized dose optimization techniques were used for this CT. COMPARISON: 2015 FINDINGS: Normal soft tissue structures. Normal calvarium. Normal size ventricles and extra-axial spaces for the patient's age. Normal white matter tracts of the cerebral hemispheres. Normal basal ganglia and thalami. Normal brainstem. Normal cerebellum. There is no intracranial hemorrhage. There are no findings of an acute ischemic infarction. Normal visualized paranasal sinuses. CT/Brain/Head without Contrast IMPRESSION: Chronic involutional changes of the brain. No acute hemorrhage Electronically Signed: Mo Rowe MD at 21:24 EST , Service support ,
--- NOTE | 2018-08-07 19:53 | EKG12_ITS ---
Test Reason : CP Blood Pressure : / mmHG Vent. Rate : 083 BPM Atrial Rate : 083 BPM P-R Int : 156 ms QRS Dur : 114 ms QT Int : 376 ms P-R-T Axes : 054 027 044 degrees QTc Int : 441 ms Normal sinus rhythm Possible Left atrial enlargement Borderline ECG Confirmed by SARA SHELBY, IVAN ([id number]), loan expeditor RONAK PLASCENCIA ([id number]) on 08/09/2018 4:24:30 PM Referred By: MARTIN/TRUMAN Confirmed By:IVAN RUIZ MD
--- NOTE | 2018-08-07 19:55 | RAD_ITS ---
STUDY: X-RAY CHEST REASON FOR EXAM: Male, 58 years old. Weakness times several weeks, confusion and found unresponsive TECHNIQUE: Single AP portable view of the chest. COMPARISON: Prior study of 12/29/2017 FINDINGS: personnel monitor leads are present. The lungs are clear and expanded. There is no demonstrated pleural abnormality. Normal size heart. Normal mediastinum and dain. Normal visualized pulmonary arteries. Normal visualized aortic arch and descending thoracic aorta. Normal visualized thoracic spine. Normal visualized ribs, clavicles, and shoulders. Orthopedic hardware is seen over the lower cervical spine. There is no demonstrated abnormality of the visualized soft tissue structures of the upper abdomen. RAD/Chest 1 View IMPRESSION: No acute cardiopulmonary disease process is seen. Chest findings are stable in the interval. Electronically Signed: Patrice Red MD at 20:33 EST , Service support ,
[2018-08-07] MEDS: Dextrose 50%-Water 25 GM/50 ML DISP.SYRIN IV (19:59)
--- NOTE | 2018-08-07 20:01 | ED.DCSUM_ITS ---
- ER Visit Summary Date of Service: 08/07/18 Chief Complaint: Weakness, headache History of Present Illness: The patient is a 58 M presents to the emergency department multiple complaints. The patient apparently was in his normal state of health today. He went to work. 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 He is complaining of mild headache earlier in the day. He stopped and checked his blood pressure and it was high. He states that he came home. His did see him in approximately 4:00. States that he was normal. Later on in the evening, he had called his son and told him that he was having problems with his vision and was asking nonsensical questions. The son was not at the house but called the squad. states when she got home from confucianist, EMS was [facility] on scene. Patient does have prior stroke in 2016. He has been having intermittent headache for the past 3 days that worsened today. Physical Examination: Vital signs reviewed General: Well-nourished, well-developed Head: Normocephalic, atraumatic Eyes: Pupils equal and reactive, extraocular muscles intact Neck, supple, no lymphadenopathy Heart: Regular rate and rhythm Respiratory: No distress, clear bilaterally Abdomen: Soft, nontender, nondistended, no peritoneal signs Back: Nontender Extremities: Nontender, no edema, no cords Skin: Normal color no rash Neuro: Alert and oriented, no focal or lateralizing deficits, patient does answer questions appropriately, he will not hold any extremities against gravity. His exam is nonfocal. Test Results: [] Emergency Department Course and Treatment: The patient did score an NIH of 16 for his extremities, but it involves all 4 extremities and is nonfocal. I do not feel that he is a TPA candidate. His last known well was approximately 4:00 today. As this does not fall though a definitive focal process, stroke team was not called. The patient was sent for immediate noncontrast head CT. This shows no evidence of bleeding or tumor. His NIH exam would wax and wane where he would have more effort against gravity diffusely, but then would have no effort. He was also complaining of headache. On arrival, his blood sugar was 67 he was given half an amp of D50. He really had no change in his symptoms. His screening labs are unremarkable. I am unsure if this was true stroke versus some other process. The patient has been under a significant amount of stress lately. States that his daughter had just left to go back to college. He is also concerned about his current employment status. Either way, with the patient's history of hypertension, prior stroke, and the symptoms I do feel that he is going to require further workup. The patient was discussed with the hospitalist and will be admitted. Treatment Plan: [] Disposition: Admission Impression: 1. Generalized weakness with history of stroke This note was generated with [employer] dictation software. It may contain incorrect words, spelling, and punctuation that were not noted in review of the chart prior to signing ED Disposition - Plan for ED Patient: Chief Complaint: Neuro S/Sx Referrals: Billy De Santiago MD [Primary Care Provider] -
[2018-08-07 20:06] LABS: Bedside Glucose 67 mg/dL (70-110)
[2018-08-07 20:07] LABS: Absolute Lymphocyte Count 2.78 X10^3/ul (0.83-4.51); Absolute Neutrophil Count 6.3 X10^3/uL (2.0-7.7); Basophil# 0.03 X10^3/uL; Basophil% 0.3 % (0-1); Eosinophil# 0.09 X10^3/uL; Eosinophils% 0.9 % (0-5); Hematocrit 41.3 % (40-54); Hemoglobin 13.8 g/dl (13.0-16.5); Lymphocyte # 2.78 X10^3/ul (4.0); Lymphocyte % 28.5 % (19-41); Mean Corp Hgb Conc 33.4 g/gl (32-36); Mean Corpuscular Hgb 28.3 pg (27.0-32.0); Mean Corpuscular Volume 84.6 fL (80-94); Mean Platelet Vol. 9.4 fl (6.2-12.0); Monocyte% 6.1 % (0-10); Neutrophil # 6.25 X10^3/uL (2.7-7.7); POSITIVE COUNT NO; POSITIVE DIFFERENTIAL NO; POSITIVE MORPHOLOGY NO; Platelet Count 388 K/mm3 (150-450); RBC Distribution Width CV 13.9 % (11.6-14.6); RBC Distribution Width SD 43.3 fl (35.1-43.9); Red Blood Count 4.88 M/mm3 (4.6-6.2); White Blood Count 9.8 K/mm3 (4.4-11.0)
[2018-08-07 20:10] LABS: Prothrombin Time (Protime)PT. 13.1 SECONDS (11.7-14.9)
[2018-08-07 20:11] LABS: Partial Thromboplast Time 29.7 Seconds (24.1-36.2)
[2018-08-07 20:26] LABS: Anion Gap 7 (5-15); BUN 16 mg/dL (7-18); BUN/Creat Ratio 16.4 RATIO (10-20); Calcium,Total 8.6 mg/dL (8.5-10.1); Chloride 103 mmol/L (98-107); Creatinine, Serum 0.98 mg/dL (0.70-1.30); EST Glomerular Filtration Rate 84 mL/min (>60); Est Glom Filt Rate - Afr Amer 102 mL/min (>60); Estimated Creatinine Clearance 96.69 ml/min; Glucose 84 mg/dL (74-106); Potassium 3.6 mmol/L (3.5-5.1); Sodium Level 136 mmol/L (136-145)
[2018-08-07 20:31] LABS: Bedside Glucose 99 mg/dL (70-110)
[2018-08-07] MEDS: Morphine 4 MG/ML Syringe IV (20:34)
[2018-08-07] MEDS: Acetaminophen 500 MG Tablet 1000 MG PO (21:22)
--- NOTE | 2018-08-07 21:41 | PCM.HP.STD ---
Problem List (1) Migraine Status: Acute Qualifiers: Intractability: intractable (2) TIA (transient ischemic attack) Status: Acute (3) Anxiety and depression Status: Chronic (4) Chronic back pain Status: Chronic Qualifiers: Back pain location: back pain in unspecified location Back pain laterality: unspecified Qualified Code(s): M54.9 - Dorsalgia, unspecified; G89.29 - Other chronic pain (5) Thrombocytosis Status: Chronic (6) Iron deficiency anemia Status: Chronic Qualifiers: Iron deficiency anemia type: unspecified iron deficiency Qualified Code(s): D50.9 - Iron deficiency anemia, unspecified (7) Sleep disorder breathing Status: Chronic (8) CVA (cerebral vascular accident) Status: Chronic Qualifiers: CVA mechanism: unspecified Qualified Code(s): I63.9 - Cerebral infarction, unspecified (9) Benign essential hypertension Status: Chronic (10) Obesity (BMI 30.0-34.9) Status: Chronic History of Present Illness Date of Admission: 08/07/18 Chief Complaint: Headache, confusion, generalized weakness. 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 Upon EMS evaluation, he had no focal deficits. Family and patient note he has been under significant stress with several things going on at home. Inital ED NIH 16-->repeat prior to admission improved to 9 with continued improvement upon evaluation. In the ED work-up included T 99.6, heart rate 87, BP initially 180/101, respiratory rate 19, 9 mm percent on room air, unremarkable CBC, unremarkable coags, unremarkable BMP except initially noted BS check 67, repeat 99 and on BMP 102 as noted normal, troponin < 0.015, EKG w/ no acute evidence of ischemia, chest x-ray with no acute process, CT brain with no acute findings. In the ED patient administered Compazine, morphine, Benadryl, dextrose, Tylenol. Past Medical History Past Medical History (Chronic Problems): Chronic Problems Thrombocytosis (Chronic) Iron deficiency anemia (Chronic) Anxiety and depression (Chronic) Chronic back pain (Chronic) Sleep disorder breathing (Chronic) CVA (cerebral vascular accident) (Chronic) Depression (Chronic) Benign essential hypertension (Chronic) Low back pain (Chronic) Urinary incontinence (Chronic) Obesity (BMI 30.0-34.9) (Chronic) Elevated PSA (Chronic) recent biopsies done by DR. Monk are negative Allergies iohexol [From Omnipaque] Allergy (Verified 08/07/18 20:09) Rash Home Medications: Ambulatory Orders Medication Instructions Recorded Citalopram Hydrobromide 40 mg PO DAILY 07/05/16 [Citalopram HBr] Atorvastatin Calcium [Lipitor] 80 mg PO QHS 12/13/17 Amlodipine [Norvasc] 10 mg PO DAILY 12/29/17 Ascorbic Acid [Vitamin C] 500 mg PO BIDCM 12/29/17 Docusate Sodium [Colace] 200 mg PO BID 12/29/17 Ferrous Gluconate 325 mg PO BIDCM 12/29/17 Gabapentin [Neurontin] 300 mg PO TID PRN 12/29/17 Polyethylene Glycol 3350 [Miralax] 17 gm PO DAILY 12/29/17 Oxycodone [Oxyir] 5 - 10 mg PO Q6H PRN PRN 7 Days 01/01/18 #30 tab Carvedilol [Coreg] 6.25 mg PO BID 04/27/18 Hydrocodone Bitart/Apap 5-325 1 tab PO Q6H PRN PRN 3 Days #10 tab 04/27/18 [[place] 5MG-325MG] Ondansetron [Zofran Odt] 4 mg PO Q6H PRN PRN 04/27/18 Zolpidem Tartrate [Ambien] 10 mg PO QHS 04/27/18 traZODone [Desyrel] 50 mg PO QHS 04/27/18 Surgical History: appendectomy, - - Cervical fusion, prostate biopsy, BL TKR. Psychiatric History: Depression - does not take his medication routinely Lives: Spouse/ Significant Other Smoking Status: Never smoker Tobacco Use: Non-smoker Alcohol: None Drugs: None - *Family History Maternal History Items: - - His mother of a brain aneurysm, age 65 Paternal History Items: Cancer - Fathered with history of cancer, bone and lung, age 75 Review of Systems Constitutional: Reports: Weakness, Fatigue. Denies: Chills, Fever, Weight Change HEENT: Reports: Visual Changes. Denies: Head Aches, Sinus Congestion, Sinus Drainage Cardiovascular: Denies: Chest Pain, Palpitations Respiratory: Denies: Cough, Shortness of breath at rest, Sputum production Gastrointestinal: Denies: Abdominal Pain, Nausea, Vomiting Genitourinary: Denies: Dysuria Musculoskeletal: Reports: Back Pain, Joint Pain. Denies: Joint Tenderness Skin: Denies: Rash, Wounds Neurological: Reports: Balance problems, Blurred vision, Confusion. Denies: Focal weakness, Numbness, Tingling Psychiatric: Reports: Anxiety, Depression. Denies: Homicidal Ideations, Suicidal Ideations Hematologic/ Lymphatic: Reports: Anemia. Denies: Easy Bruising, Easy Bleeding VTE Information - Inpt Only VTE Present on Admission: No VTE Mechan Device Prophylaxis: SCD's VTE Pharm Prophylaxis ordered?: Yes Patient Problems: Active and Suspected Problems TIA (transient ischemic attack) (Acute) Migraine (Acute) Subjective: Seated upright in the ED bed, fatigued, improved. Objective: Physical Examination: General: awake, alert, oriented x 3 and cooperative, seated upright in the ED bed in no apparent distress. Skin: normal color, turgor, no icterus, cyanosis. HEENT: AT/NC, EOMI, PERRLA, mildly dry MM, no carotid bruits or JVD noted. Lungs: CTA bilaterally, moderate effort, mild decrease BL bases, no rales, ronchi or wheezing. Heart: Regular rate and rhythm; no gallop, rub audible. Abdomen: soft, obese, NTTP, ND, normal BS, no HSM. Extremities: no cyanosis, clubbing, or edema. Neurological: patient awake, alert, oriented x 3; cognitive function improved, nearing baseline intact; pupils equally reactive to light and accomodation; cranial nerves II-XII grossly normal, moving all 4 extremities, sensation intact, negative babinski, FTN mildly irregular BL, HTS normal BL, no focal deficits, strength mildly to moderately generally decreased. Psychiatric: affect appears fatigued, stressed, no acute evidence of depressive feelings. - Physical Exam Vital Signs Temp Pulse Resp BP Pulse Ox 99.6 F H 86 13 189/110 H 98 08/07/18 19:51 08/07/18 21:30 08/07/18 21:30 08/07/18 21:30 08/07/18 21:30 Oxygen Flow Rate (L/min) 2 Oxygen Delivery Method Nasal Cannula Weight: 259 lb 7.745 oz Body Mass Index (BMI) 33.3 Finger Stick Blood Glucose 99 Laboratory Tests Past 24 Hrs 08/07/18 08/07/18 08/07/18 20:00 20:00 20:00 WBC 9.8 RBC 4.88 Hgb 13.8 Hct 41.3 MCV 84.6 MCH 28.3 MCHC 33.4 RDW 13.9 RDW Differential 43.3 Plt Count 388 MPV 9.4 Immature Gran % (Auto) 0.200 Neut % (Auto) 64.0 Lymph % (Auto) 28.5 [place] % (Auto) 6.1 Eos % (Auto) 0.9 Baso % (Auto) 0.3 Absolute Neuts (auto) 6.3 Absolute Lymphs (auto) 2.78 Total Counted Not Reportable PT 13.1 INR 1.0 APTT 29.7 Sodium 136 Potassium 3.6 Chloride 103 Carbon Dioxide 26.0 Anion Gap 7 BUN 16 Creatinine 0.98 Estim Creat Clear Calc 96.69 Est GFR (MDRD) Af Amer 102 Est GFR (MDRD) Non-Af 84 BUN/Creatinine Ratio 16.4 Glucose 84 Calcium 8.6 Troponin I < 0.015 POC Glucose 08/07/18 08/07/18 20:23 19:54 POC Glucose 99 67 L Assessment/Plan All Active Problems DVT prophylaxis (Acute) TIA (transient ischemic attack) (Acute) Migraine (Acute) Noncompliance with medication regimen (Acute) Hypertensive urgency (Acute) LALITA (acute kidney injury) (Ruled-out) Headache (Acute) The patient is a 58 y/o M w/ PMHx: Obesity, HTN, HLD, History of Headaches, Prior CVA 2016 with only memory deficits, Sleep Disorder Breathing, Fe Deficiency Anemia, Anxiety and Depression who presents to the [facility] ED on 08/07/18 noted to have gone to work on day of presentation without issue, but did note ongoing generalized sharp stabbing headache with elevated BP (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 (1) Confusion, Generalized Weakness concerning for Atypical presentation TIA/CVA versus Acute Complex Migraine: ED work-up included T 99.6, heart rate 87, BP initially 180/101, respiratory rate 19, 9 mm percent on room air, unremarkable CBC, unremarkable coags, unremarkable BMP except initially noted BS check 67, repeat 99 and on BMP 102 as noted normal, troponin < 0.015, EKG w/ no acute evidence of ischemia, chest x-ray with no acute process, CT brain with no acute findings. Will admit to PCU, will obtain MRI Brain, MRA Head and Neck, ECHO, PT/OT/Speech/Nutrition evaluation per protocol. Will consult Neurology for evaluation. Will allow permissive HTN, maintain on asa, statin w/ AM FLP, fall precautions. Mag, TSH pending. Will additionally, given headache ongoing, administered migraine cocktail per ED, initiate IV VPA 500mg Q6 hours, IV Decadron 4mg Q6 hours, IV Toradol 15 mg q 8h x 5, continue home neurontin regimen. (2) Chronic Headaches: From prior Neurology note, patient w/ chronic headaches treated in the past with Depakote ED but did not follow with treatment, recommendation at that time had been to restart Depakote 500 mg ER and avoid all NSAID usage. As noted some concern presentation consistent w/ complex migraine but still concern for possible alternate neurological etiology. (3) Prior CVA: Prior CVA 2016 tiny acute infarct left basal ganglia with sequelae of old infarcts involving the left frontal lobe, left basal ganglia and mckeon radiata, continued on aspirin, high-dose statin, BP regimen with permissive hypertension currently but re-addition once appropriate. (4) Suspected PEYTON: Benefit from outpatient sleep study. (5) Fe Deficiency Anemia: Admission Hgb 13.8, continue Fe supplementation. (6) obesity: Weight loss and lifestyle changes encouraged. (7) Hypertension: Permissive pending MRI brain. (8) Hyperlipidemia: Continue home statin regimen. AM FLP. (9) Anxiety and Depression: Continue home citalopram regimen. (10 DVT prophylaxis: SCDs, lovenox. Code Visit Inpatient E&M: 13795 Init Hosp L3
[2018-08-07] MEDS: proCHLORPERazine 10 MG/2 ML Vial IV (21:49)
[2018-08-07] MEDS: DiphenhydrAMINE 50 MG/ML Syringe 25 MG IV (21:49)
--- NOTE | 2018-08-07 22:39 | MRI_ITS ---
STUDY: MRI BRAIN WITHOUT CONTRAST REASON FOR EXAM: Male, 58 years old. CVA and headache for 2 days TECHNIQUE: Standardized multiplanar fat and water weighted pulse sequences were obtained. COMPARISON: CT of the brain on August 07, 2018 MRI on July 06, 2016 FINDINGS: Normal size of the ventricles and extra-axial spaces for the patient's age. Mild periventricular white matter changes in the left mckeon radiata and subependymoma white matter contiguous with the frontal horn of left lateral ventricle. There is no restricted diffusion observed.. Normal bilateral basal ganglia. Normal thalami. There is no extra-axial fluid accumulation. Normal flow voids within the major intracranial circulation suggesting patency by spin echo criteria. Normal sella turcica, pituitary gland, infundibular stalk, optic chiasm and hypothalamus. Normal tectal plate and pineal gland. Normal midbrain, jeremei and medulla. Normal cerebellum. Normal basal cisterns. Normal bilateral temporal bones. Normal bilateral internal auditory canals. No demonstrated orbital abnormality, within the constraints of a routine brain study. Minor mucosal thickening of the maxillary and ethmoid sinuses bilaterally.. Normal calvarium and skull base. Normal visualized soft tissue structures. Normal visualized upper cervical spine. No significant change since prior exam MRI/Brain without Contrast IMPRESSION: Chronic ischemic changes in the left frontal lobe. No evidence for acute infarct at this time. Electronically Signed: Rashaad Sellers MD at 16:37 EST , Service support ,
--- NOTE | 2018-08-07 22:39 | MRI_ITS ---
STUDY: MRA OF THE HEAD WITHOUT CONTRAST REASON FOR EXAM: Male, 58 years old. Stroke TECHNIQUE: 3-D [id number] (TOF) imaging was performed with MIPs. The study was performed unenhanced. COMPARISON: July 06, 2016 FINDINGS: Normal bilateral petrous carotid arteries. Normal right cavernous carotid artery with a normal supraclinoid bifurcation. Normal left cavernous carotid artery with a normal supraclinoid bifurcation. Normal right A1 segments of the anterior cerebral artery. Normal left A1 segments of the anterior cerebral artery. Normal intact anterior communicating artery (ACOM). Normal bilateral A2 segments of the anterior cerebral arteries. Normal right M1 and M2 segments of the middle cerebral arteries, with a normal M1 bifurcation. Normal left M1 and M2 segments of the middle cerebral arteries, with a normal M1 bifurcation. Normal right posterior communicating artery (PCOM). Left posterior communicating artery not visualized consistent with normal variant Normal bilateral vertebral arteries. Normal basilar artery with a normal basilar bifurcation. The visualized bilateral superior cerebellar (SCA) arteries are normal. Normal left posterior cerebral artery. origin of the right posterior cerebral artery with absence of the P1 segment There is no demonstrated aneurysm of the [place]. There is no major vessel occlusion or hemodynamically significant stenosis. There is no demonstrated abnormality of the visualized brain. MRI/MRA Head ONLY without Contrast IMPRESSION: Normal MRA of the head Electronically Signed: Rashaad Sellers MD at 17:51 EST , Service support ,
--- NOTE | 2018-08-07 22:39 | MRI_ITS ---
STUDY: MRA NECK WITHOUT CONTRAST REASON FOR EXAM: Male, 58 years old. Stroke TECHNIQUE: Source images were obtained, MIPs were performed. The study was performed unenhanced. COMPARISON: None. FINDINGS: RIGHT CAROTID ARTERIES: Normal right common carotid artery (CCA). Normal right common carotid bulb. Normal origin of the right internal carotid (ICA) artery without a hemodynamically significant stenosis. Normal visualized cervical portion of the right internal carotid artery. Normal origin of the right external carotid artery (ECA). LEFT CAROTID ARTERIES: Normal left common carotid artery (CCA). Normal left common carotid bulb. Normal origin of the left internal carotid (ICA) artery without a hemodynamically significant stenosis. Normal visualized cervical portion of the left internal carotid artery. Normal origin of the left external carotid artery (ECA). VERTEBRAL ARTERIES: Normal antegrade flow within the bilateral vertebral artery without a hemodynamically significant stenosis. MRI/MRA Neck without Contrast IMPRESSION: Normal bilateral cervical carotid and vertebral arteries. Electronically Signed: Rashaad Sellers MD at 17:52 EST , Service support ,
--- NOTE | 2018-08-07 22:39 | ECHOD_ITS ---
Reason For Study: TIA/CVA Procedure This was a 2D Doppler, Color Flow transthoracic echocardiogram. Exam performed portable in patient room. Left Ventricle Normal LV size. Left ventricular systolic function is normal. The estimated ejection fraction is 55 %. No evidence for diastolic dysfunction. No regional wall motion abnormalities noted. Right Ventricle Normal RV size. Normal systolic function. Atria Normal left atrium. Normal right atrium. Bubble contrast study negative for right to left interatrial shunt. Mitral Valve Normal mitral valve. Tricuspid Valve Normal tricuspid valve. Mild tricuspid valve insufficiency. Pulmonary artery systolic pressure is 26 mmHg. Aortic Valve Normal aortic valve. Trisinus/trileaflet aortic valve. Pulmonic Valve Normal pulmonic valve. Great Vessels Normal aortic root. The pulmonary artery is normal size. Normal inferior vena cava. Pericardium/Pleural No pericardial effusion. Medication Performed a rapid injection of agitated mix of 9 cc saline and 1cc air to assess for atrial septal defect. MMode/2D Measurements & Calculations LVIDd: 5.2 cm IVSd: 1.1 cm Ao root diam: 3.5 cm LVIDs: 3.6 cm LVPWd: 1.1 cm RVDd: 3.6 cm FS: 29.6 % LAV(MOD-bp): 81.2 ml LA A4 area: 26.2 cm2 LA dimension(2D): 4.4 cm LAV(MOD-bp) Indexed: 33.9 ml/m2 LAV(MOD-sp2): 64.2 ml LAV(MOD-sp4): 81.7 ml RA A4 area: 17.1 cm2 Time Measurements MV dec time: 0.28 sec Doppler Measurements & Calculations MV E max td: 107.3 cm/sec Lat Peak E' Td: 8.8 cm/sec Med Peak E' Td: 9.2 cm/sec MV A max td: 106.1 cm/sec E/E' lat: 12.1 E/E' med: 11.7 MV E/A: 1.0 Ao V2 max: 146.2 cm/sec LV V1 max: 88.3 cm/sec TR max td: 235.6 cm/sec Ao max P.6 mmHg LV V1 max P.1 mmHg TR max P.3 mmHg Interpretation Summary Normal LV size. Left ventricular systolic function is normal. The estimated ejection fraction is 55 %. No evidence for diastolic dysfunction. Mild tricuspid valve insufficiency. Bubble contrast study negative for right to left interatrial shunt. Ordering Physician: Kirsten Vogel Referring Physician: MD Anyi Billy Performed By: Suni Fuentes, RDCS, RVT
[2018-08-07 23:12] LABS: Thyroid Stim Hormone (TSH) 2.32 uIU/mL (0.358-3.74)
[2018-08-07] MEDS: 0.9% Normal Saline 1,000 ML 125 ML IV (23:47)
[2018-08-07] MEDS: Docusate Sodium 100 MG Capsule 200 MG PO (23:50)
[2018-08-07] MEDS: Gabapentin 100 MG Capsule PO (23:51)
[2018-08-07] MEDS: Ketorolac 15 MG/ML Vial IV (23:51)
[2018-08-07] MEDS: Famotidine 20 MG Tablet PO (23:52)
[2018-08-07] MEDS: traZODone 50 MG Tablet PO (23:52)
[2018-08-07] MEDS: Magnesium Sulfate 1 GM in 0.9% Normal Saline 100 ML IV (23:53)
[2018-08-08] VITALS (15 sets, daily range): BP systolic 140–186; BP diastolic 71–104; PULSE 58–116; RESP 15–18; TEMP 36.4–36.8; O2SAT 94–100; BMI 32.3; BMI 32.4
[2018-08-08] MEDS: 0.9% NaCl Peripheral Flush Adult/Peds IV ×2 (06:09→12:44)
[2018-08-08] MEDS: Ketorolac 15 MG/ML Vial IV ×3 (06:09→21:52)
--- NOTE | 2018-08-08 06:35 | PCM.PROGNOTE ---
Patient Problems: Active and Suspected Problems TIA (transient ischemic attack) (Acute) Migraine (Acute) Objective: Mr. Guerrero is a 58-year-old male with a past medical history of obesity, hypertension, hyperlipidemia, CVA in 2016, suspected disordered breathing, iron deficiency anemia, anxiety/depression and headaches who presented to the [facility] emergency department on 08/07/2018 complaining of a sharp stabbing headache and confusion. He complained of generalized weakness and not being able to see. EMS was summoned and he had no focal deficits. CT brain in the emergency department had no acute findings. Chest x-ray showed no infiltrates, pleural effusions. CBC was normal. BMP was unremarkable. TSH was normal and troponin was less than 0.015. The initial glucose was mildly decreased at 67. Home medications include Ambien, trazodone, Vicodin, OxyIR, gabapentin and citalopram. He admitted to not consistently taking his antidepressant. When Dr. Vogel examined him in the emergency department he was alert and oriented x3. Neuro exam was unremarkable. He had no focal neurologic deficits. He was treated with a migraine cocktail in the emergency department and had Depakote, Decadron and Toradol ordered at admission. He had a similar presentation to [facility] in September 2015 at which time I took care of him. At that time he was taking Motrin, up to 1000 mg 3 times daily. He was a valid UA did by neurology at that time and they felt his headaches were multifactorial and due to untreated sleep apnea, uncontrolled hypertension and possible migraine variant. They recommended discharge on Depakote and gabapentin and follow-up in the office in 1-2 weeks. They also recommended an outpatient PSG but the patient never followed up. Afebrile since admission Blood pressures were initially quite elevated and ranged from 162/107-180 9/110. The current blood pressure is 154/72. Repeat lab is pending. In summary the patient has been seen for headaches in the past and was not compliant with follow-up or with the medication given to him. He was not compliant with follow-up for an outpatient PSG. He has been diagnosed with depression and is not consistently taking his antidepressant. He is on multiple medications which are sedating and he likely has sleep disordered breathing. - Physical Exam Vital Signs Temp Pulse Resp BP Pulse Ox 97.7 F L 68 16 140/71 H 96 08/08/18 03:02 08/08/18 03:02 08/08/18 03:02 08/08/18 03:02 08/08/18 03:02 Oxygen Flow Rate (L/min) 2 Oxygen Delivery Method Room Air Weight: 251 lb 15.814 oz Body Mass Index (BMI) 32.3 Finger Stick Blood Glucose 99 Intake and Output for Last 24 Hours 08/06/18 08/07/18 08/08/18 23:59 23:59 23:59 Intake Total 1039 / 1039 Output Total 475 / 475 Balance 564 / 564 Laboratory Tests Past 24 Hrs 08/07/18 08/07/18 08/07/18 20:00 20:00 20:00 WBC 9.8 RBC 4.88 Hgb 13.8 Hct 41.3 MCV 84.6 MCH 28.3 MCHC 33.4 RDW 13.9 RDW Differential 43.3 Plt Count 388 MPV 9.4 Immature Gran % (Auto) 0.200 Neut % (Auto) 64.0 Lymph % (Auto) 28.5 [place] % (Auto) 6.1 Eos % (Auto) 0.9 Baso % (Auto) 0.3 Absolute Neuts (auto) 6.3 Absolute Lymphs (auto) 2.78 Total Counted Not Reportable PT 13.1 INR 1.0 APTT 29.7 Sodium 136 Potassium 3.6 Chloride 103 Carbon Dioxide 26.0 Anion Gap 7 BUN 16 Creatinine 0.98 Estim Creat Clear Calc 96.69 Est GFR (MDRD) Af Amer 102 Est GFR (MDRD) Non-Af 84 BUN/Creatinine Ratio 16.4 Glucose 84 Calcium 8.6 Magnesium Troponin I < 0.015 TSH 08/07/18 22:00 WBC RBC Hgb Hct MCV MCH MCHC RDW RDW Differential Plt Count MPV Immature Gran % (Auto) Neut % (Auto) Lymph % (Auto) [place] % (Auto) Eos % (Auto) Baso % (Auto) Absolute Neuts (auto) Absolute Lymphs (auto) Total Counted PT INR APTT Sodium Potassium Chloride Carbon Dioxide Anion Gap BUN Creatinine Estim Creat Clear Calc Est GFR (MDRD) Af Amer Est GFR (MDRD) Non-Af BUN/Creatinine Ratio Glucose Calcium Magnesium 2.0 Troponin I TSH 2.32 POC Glucose 08/07/18 08/07/18 20:23 19:54 POC Glucose 99 67 L Medical Necessity - Tobacco Use Smoking Status: Never smoker Tobacco Use: Non-smoker Assessment/Plan All Active Problems DVT prophylaxis (Acute) TIA (transient ischemic attack) (Acute) Migraine (Acute) Noncompliance with medication regimen (Acute) Hypertensive urgency (Acute) LALITA (acute kidney injury) (Ruled-out) Headache (Acute)
[2018-08-08 06:45] LABS: Absolute Lymphocyte Count 1.11 X10^3/ul (0.83-4.51); Absolute Neutrophil Count 4.9 X10^3/uL (2.0-7.7); Basophil# 0.01 X10^3/uL; Basophil% 0.2 % (0-1); Hematocrit 40.7 % (40-54); Hemoglobin 13.3 g/dl (13.0-16.5); Lymphocyte # 1.11 X10^3/ul (4.0); Mean Corp Hgb Conc 32.7 g/gl (32-36); Mean Corpuscular Hgb 27.9 pg (27.0-32.0); Mean Corpuscular Volume 85.3 fL (80-94); Mean Platelet Vol. 9.4 fl (6.2-12.0); Monocyte# 0.11 X10^3/uL; Monocyte% 1.8 % (0-10); Neutrophil # 4.92 X10^3/uL (2.7-7.7); Neutrophil % 79.8 % (47-70); Platelet Count 384 K/mm3 (150-450); RBC Distribution Width CV 13.8 % (11.6-14.6); RBC Distribution Width SD 42.4 fl (35.1-43.9); Red Blood Count 4.77 M/mm3 (4.6-6.2); White Blood Count 6.2 K/mm3 (4.4-11.0)
[2018-08-08 06:54] LABS: POSITIVE COUNT NO; POSITIVE DIFFERENTIAL NO; POSITIVE MORPHOLOGY NO
[2018-08-08 07:00] LABS: Anion Gap 11 (5-15); BUN 15 mg/dL (7-18); BUN/Creat Ratio 15.8 RATIO (10-20); Calcium,Total 8.2 mg/dL (8.5-10.1); Chloride 103 mmol/L (98-107); Cholesterol 172 mg/dL (200); Creatinine, Serum 0.95 mg/dL (0.70-1.30); EST Glomerular Filtration Rate 87 mL/min (>60); Est Glom Filt Rate - Afr Amer 105 mL/min (>60); Estimated Creatinine Clearance 99.75 ml/min; Glucose 155 mg/dL (74-106); High Density Lipoprotein 38 mg/dL; Potassium 4.7 mmol/L (3.5-5.1); Sodium Level 137 mmol/L (136-145); Triglycerides 68 mg/dL; Very Low Density Lipoprotein 14 mg/dL (5-40)
[2018-08-08] MEDS: Aspirin 81 MG TAB.CHEW PO (08:53)
[2018-08-08] MEDS: Enoxaparin 40 MG/0.4 ML Syringe SC (08:54)
[2018-08-08] MEDS: Gabapentin 100 MG Capsule PO ×2 (08:54→16:53)
[2018-08-08] MEDS: Citalopram 40 MG TABLET PO (08:54)
[2018-08-08] MEDS: Ferrous Gluconate 324 MG Tablet PO ×2 (08:54→16:53)
[2018-08-08] MEDS: Docusate Sodium 100 MG Capsule 200 MG PO ×2 (08:54→21:51)
[2018-08-08] MEDS: Famotidine 20 MG Tablet PO ×2 (08:55→21:51)
--- NOTE | 2018-08-08 10:39 | PCM.CONS.GEN ---
Reason for Consult Date of Consultation: 08/08/18 Reason for Consultation: headache History of Present Illness: The patient is a 58 year old M who presented with a headache associated with high blood pressure over 200 measured at home. reports increased stress at home but no other trigger, reports good med compliance. headache now 4/10, improved from 9/10. normally takes ibuprofen 15-20/day for headache and knee pain (recent b tkr), but says would still take 10/day for headache. 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 Upon EMS evaluation, he had no focal deficits. Family and patient note he has been under significant stress with several things going on at home. Inital ED NIH 16-->repeat prior to admission improved to 9 with continued improvement upon evaluation. In the ED work-up included T 99.6, heart rate 87, BP initially 180/101, respiratory rate 19, 9 mm percent on room air, unremarkable CBC, unremarkable coags, unremarkable BMP except initially noted BS check 67, repeat 99 and on BMP 102 as noted normal, troponin < 0.015, EKG w/ no acute evidence of ischemia, chest x-ray with no acute process, CT brain with no acute findings. In the ED patient administered Compazine, morphine, Benadryl, dextrose, Tylenol. Past Medical History Past Medical History (Chronic Problems): Chronic Problems Thrombocytosis (Chronic) Iron deficiency anemia (Chronic) Anxiety and depression (Chronic) Chronic back pain (Chronic) Sleep disorder breathing (Chronic) CVA (cerebral vascular accident) (Chronic) Depression (Chronic) Benign essential hypertension (Chronic) Low back pain (Chronic) Urinary incontinence (Chronic) Obesity (BMI 30.0-34.9) (Chronic) Elevated PSA (Chronic) recent biopsies done by DR. Monk are negative Allergies iohexol [From Omnipaque] Allergy (Verified 08/07/18 20:09) Rash Home Medications: Ambulatory Orders Medication Instructions Recorded Citalopram Hydrobromide 40 mg PO DAILY 07/05/16 [Citalopram HBr] Amlodipine [Norvasc] 10 mg PO DAILY 12/29/17 Zolpidem Tartrate [Ambien] 10 mg PO QHS 04/27/18 Lisinopril [Zestril] 40 mg PO DAILY 08/08/18 Surgical History: appendectomy, - - Cervical fusion, prostate biopsy, BL TKR. Psychiatric History: Depression - does not take his medication routinely Lives: Spouse/ Significant Other Smoking Status: Never smoker Tobacco Use: Non-smoker Alcohol: None Drugs: None - *Family History Maternal History Items: - - His mother of a brain aneurysm, age 65 Paternal History Items: Cancer - Fathered with history of cancer, bone and lung, age 75 Patient Problems: Active and Suspected Problems TIA (transient ischemic attack) (Acute) Migraine (Acute) - Physical Exam General: Alert, Oriented x3, Cooperative HEENT: Atraumatic, PERRLA, EOMI, Normocephalic Neck: Supple, No JVD, Negative Carotid Bruits Lungs: Clear to auscultation, Normal air movement Cardiovascular: Regular rate, No murmurs Abdomen: Bowel Sounds Present, Soft, Non Tender Extremities: No edema, Capillary Refill Less than 3 Seconds Skin: No rashes, No breakdown Musculoskeletal: No Tenderness to Palpation of Joints or Extremities Neurological: Cranial nerves II-XII grossly intact Psych/Mental Status: Normal Affect, Appropriate Vital Signs Temp Pulse Resp BP Pulse Ox 36.5 C L 63 16 154/72 H 94 08/08/18 06:26 08/08/18 06:26 08/08/18 06:26 08/08/18 06:26 08/08/18 07:10 Oxygen Flow Rate (L/min) 2 Oxygen Delivery Method Room Air Weight: 114.3 kg Body Mass Index (BMI) 32.3 Finger Stick Blood Glucose 99 Intake and Output for Last 24 Hours 08/06/18 08/07/18 08/08/18 23:59 23:59 23:59 Intake Total 1039 / 1039 Output Total 475 / 475 Balance 564 / 564 Laboratory Tests Past 24 Hrs 08/07/18 08/07/18 08/07/18 19:54 20:00 20:00 WBC 9.8 RBC 4.88 Hgb 13.8 Hct 41.3 MCV 84.6 MCH 28.3 MCHC 33.4 RDW 13.9 RDW Differential 43.3 Plt Count 388 MPV 9.4 Immature Gran % (Auto) 0.200 Neut % (Auto) 64.0 Lymph % (Auto) 28.5 [place] % (Auto) 6.1 Eos % (Auto) 0.9 Baso % (Auto) 0.3 Absolute Neuts (auto) 6.3 Absolute Lymphs (auto) 2.78 Total Counted Not Reportable PT 13.1 INR 1.0 APTT 29.7 Sodium Potassium Chloride Carbon Dioxide Anion Gap BUN Creatinine Estim Creat Clear Calc Est GFR (MDRD) Af Amer Est GFR (MDRD) Non-Af BUN/Creatinine Ratio Glucose Calcium Magnesium Troponin I Triglycerides Cholesterol LDL Cholesterol VLDL Cholesterol HDL Cholesterol TSH POC Glucose 67 L 08/07/18 08/07/18 08/07/18 20:00 20:23 22:00 WBC RBC Hgb Hct MCV MCH MCHC RDW RDW Differential Plt Count MPV Immature Gran % (Auto) Neut % (Auto) Lymph % (Auto) [place] % (Auto) Eos % (Auto) Baso % (Auto) Absolute Neuts (auto) Absolute Lymphs (auto) Total Counted PT INR APTT Sodium 136 Potassium 3.6 Chloride 103 Carbon Dioxide 26.0 Anion Gap 7 BUN 16 Creatinine 0.98 Estim Creat Clear Calc 96.69 Est GFR (MDRD) Af Amer 102 Est GFR (MDRD) Non-Af 84 BUN/Creatinine Ratio 16.4 Glucose 84 Calcium 8.6 Magnesium 2.0 Troponin I < 0.015 Triglycerides Cholesterol LDL Cholesterol VLDL Cholesterol HDL Cholesterol TSH 2.32 POC Glucose 99 08/08/18 08/08/18 06:25 06:25 WBC 6.2 RBC 4.77 Hgb 13.3 Hct 40.7 MCV 85.3 MCH 27.9 MCHC 32.7 RDW 13.8 RDW Differential 42.4 Plt Count 384 MPV 9.4 Immature Gran % (Auto) 0.200 Neut % (Auto) 79.8 H Lymph % (Auto) 18.0 L [place] % (Auto) 1.8 Eos % (Auto) 0.0 Baso % (Auto) 0.2 Absolute Neuts (auto) 4.9 Absolute Lymphs (auto) 1.11 Total Counted Not Reportable PT INR APTT Sodium 137 Potassium 4.7 Chloride 103 Carbon Dioxide 23.0 Anion Gap 11 BUN 15 Creatinine 0.95 Estim Creat Clear Calc 99.75 Est GFR (MDRD) Af Amer 105 Est GFR (MDRD) Non-Af 87 BUN/Creatinine Ratio 15.8 Glucose 155 H Calcium 8.2 L Magnesium Troponin I Triglycerides 68 Cholesterol 172 LDL Cholesterol 120 VLDL Cholesterol 14 HDL Cholesterol 38 L TSH POC Glucose POC Glucose 08/07/18 08/07/18 20:23 19:54 POC Glucose 99 67 L Current Home Med List Medication Instructions Recorded Confirmed Type Citalopram Hydrobromide 40 mg PO DAILY 07/05/16 08/08/18 History [Citalopram HBr] Amlodipine [Norvasc] 10 mg PO DAILY 12/29/17 08/08/18 History Zolpidem Tartrate [Ambien] 10 mg PO QHS 04/27/18 08/08/18 History Lisinopril [Zestril] 40 mg PO DAILY 08/08/18 08/08/18 History Current Medications Generic Name Dose Route Start Last Admin Trade Name Freq PRN Reason Stop Dose Admin Acetaminophen 650 mg 08/07/18 22:39 Tylenol PO Q4H PRN PRN Headache/Temp>99F Acetaminophen 650 mg 08/07/18 22:39 Tylenol RECTAL Q4H PRN PRN Headache/Temp>99F Acetaminophen 650 mg 08/07/18 22:39 Tylenol Liquid NG Q4H PRN PRN Headache/Temp>99F Al Hydroxide/Mg Hydroxide 30 ml 08/07/18 22:39 Mylanta Ii PO Q6H PRN PRN Gastric burning Aspirin 81 mg 08/08/18 08:00 08/08/18 08:53 Aspirin, Baby PO 81 mg DAILY@0800 [facility] Administration Citalopram Hydrobromide 40 mg 08/08/18 10:00 08/08/18 08:54 Celexa PO 40 mg DAILY [facility] Administration Dexamethasone Sodium Phosphate 4 mg 08/07/18 22:39 08/08/18 06:09 Decadron IV 4 mg Q6 [facility] Administration Docusate Sodium 200 mg 08/07/18 22:39 08/08/18 08:54 Colace PO 200 mg BID [facility] Administration Enoxaparin Sodium 40 mg 08/08/18 10:00 08/08/18 08:54 Lovenox SC 40 mg DAILY@1000 [facility] Administration Famotidine 20 mg 08/07/18 22:39 08/08/18 08:55 Pepcid PO 20 mg BID [facility] Administration Ferrous Gluconate 324 mg 08/08/18 08:00 08/08/18 08:54 Ferrous Gluconate PO 324 mg BIDCM [facility] Administration Gabapentin 100 mg 08/07/18 22:53 08/08/18 08:54 Neurontin PO 100 mg BIDCM [facility] Administration Hydralazine HCl 10 mg 08/07/18 22:39 Apresoline Iv IV Q4H PRN SBP > 180 Sodium Chloride 1,000 mls @ 125 mls/hr 08/07/18 22:39 08/07/18 23:47 IV 125 mls/hr .Q8H [facility] Administration Valproic Acid 500 mg/ Dextrose 55 mls @ 50 mls/hr 08/07/18 22:55 08/08/18 06:09 IV 50 mls/hr Q6 [facility] Administration Ketorolac Tromethamine 15 mg 08/07/18 22:39 08/08/18 06:09 Toradol IV 08/09/18 06:01 15 mg Q8 [facility] Administration Labetalol HCl 10 mg 08/07/18 22:39 Trandate IV 08/08/18 22:40 Q10M PRN SBP > 180 Magnesium Hydroxide 30 ml 08/07/18 22:39 Milk Of Magnesia PO DAILY PRN Constipation Ondansetron HCl 4 mg 08/07/18 22:39 Zofran IV Q8H PRN PRN NAUSEA Polyethylene Glycol 17 gm 08/08/18 10:00 08/08/18 08:53 Miralax PO Not Given DAILY [facility] Promethazine HCl 12.5 mg 08/07/18 22:39 Phenergan IV Q6H PRN PRN NAUSEA/VOMITING Sodium Chloride 5 - 30 ml 08/08/18 00:35 08/08/18 06:09 IV 10 ml UD PRN Administration SALINE FLUSH Trazodone HCl 50 mg 08/07/18 22:39 11/25/18 23:52 Desyrel PO 50 mg QHS [facility] Administration Assessment/Plan All Active Problems DVT prophylaxis (Acute) TIA (transient ischemic attack) (Acute) Migraine (Acute) Noncompliance with medication regimen (Acute) Hypertensive urgency (Acute) LALITA (acute kidney injury) (Ruled-out) Headache (Acute) headache, combination of medication overuse, migraine, possible htn urgency as well, in addition to anxiety. insomnia may contribute as well, currently treated with sleep aide at night (ambien 10mg). also snorer. await mri treat migriane avoid nsaids recommend outpt psg recommend
--- NOTE | 2018-08-08 10:44 | CON.PCM_ITS ---
Reason for Consult Date of Consultation: 08/08/18 Reason for Consultation: headache History of Present Illness: The patient is a 58 year old M who presented with a headache associated with high blood pressure over 200 measured at home. reports increased stress at home but no other trigger, reports good med compliance. headache now 4/10, improved from 9/10. normally takes ibuprofen 15-20/day for headache and knee pain (recent b tkr), but says would still take 10/day for headache. 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 Upon EMS evaluation, he had no focal deficits. Family and patient note he has been under significant stress with several things going on at home. Inital ED NIH 16-->repeat prior to admission improved to 9 with continued improvement upon evaluation. In the ED work-up included T 99.6, heart rate 87, BP initially 180/101, respiratory rate 19, 9 mm percent on room air, unremarkable CBC, unremarkable coags, unremarkable BMP except initially noted BS check 67, repeat 99 and on BMP 102 as noted normal, troponin < 0.015, EKG w/ no acute evidence of ischemia, chest x-ray with no acute process, CT brain with no acute findings. In the ED patient administered Compazine, morphine, Benadryl, dextrose, Tylenol. Past Medical History Past Medical History (Chronic Problems): Chronic Problems Thrombocytosis (Chronic) Iron deficiency anemia (Chronic) Anxiety and depression (Chronic) Chronic back pain (Chronic) Sleep disorder breathing (Chronic) CVA (cerebral vascular accident) (Chronic) Depression (Chronic) Benign essential hypertension (Chronic) Low back pain (Chronic) Urinary incontinence (Chronic) Obesity (BMI 30.0-34.9) (Chronic) Elevated PSA (Chronic) recent biopsies done by DR. Monk are negative Allergies iohexol [From Omnipaque] Allergy (Verified 08/07/18 20:09) Rash Home Medications: Ambulatory Orders Medication Instructions Recorded Citalopram Hydrobromide 40 mg PO DAILY 07/05/16 [Citalopram HBr] Amlodipine [Norvasc] 10 mg PO DAILY 12/29/17 Zolpidem Tartrate [Ambien] 10 mg PO QHS 04/27/18 Lisinopril [Zestril] 40 mg PO DAILY 08/08/18 Surgical History: appendectomy, - - Cervical fusion, prostate biopsy, BL TKR. Psychiatric History: Depression - does not take his medication routinely Lives: Spouse/ Significant Other Smoking Status: Never smoker Tobacco Use: Non-smoker Alcohol: None Drugs: None - *Family History Maternal History Items: - - His mother of a brain aneurysm, age 65 Paternal History Items: Cancer - Fathered with history of cancer, bone and lung, age 75 Patient Problems: Active and Suspected Problems TIA (transient ischemic attack) (Acute) Migraine (Acute) - Physical Exam General: Alert, Oriented x3, Cooperative HEENT: Atraumatic, PERRLA, EOMI, Normocephalic Neck: Supple, No JVD, Negative Carotid Bruits Lungs: Clear to auscultation, Normal air movement Cardiovascular: Regular rate, No murmurs Abdomen: Bowel Sounds Present, Soft, Non Tender Extremities: No edema, Capillary Refill Less than 3 Seconds Skin: No rashes, No breakdown Musculoskeletal: No Tenderness to Palpation of Joints or Extremities Neurological: Cranial nerves II-XII grossly intact Psych/Mental Status: Normal Affect, Appropriate Vital Signs Temp Pulse Resp BP Pulse Ox 36.5 C L 63 16 154/72 H 94 08/08/18 06:26 08/08/18 06:26 08/08/18 06:26 08/08/18 06:26 08/08/18 07:10 Oxygen Flow Rate (L/min) 2 Oxygen Delivery Method Room Air Weight: 114.3 kg Body Mass Index (BMI) 32.3 Finger Stick Blood Glucose 99 Intake and Output for Last 24 Hours 08/06/18 08/07/18 08/08/18 23:59 23:59 23:59 Intake Total 1039 / 1039 Output Total 475 / 475 Balance 564 / 564 Laboratory Tests Past 24 Hrs 08/07/18 08/07/18 08/07/18 19:54 20:00 20:00 WBC 9.8 RBC 4.88 Hgb 13.8 Hct 41.3 MCV 84.6 MCH 28.3 MCHC 33.4 RDW 13.9 RDW Differential 43.3 Plt Count 388 MPV 9.4 Immature Gran % (Auto) 0.200 Neut % (Auto) 64.0 Lymph % (Auto) 28.5 Faulk % (Auto) 6.1 Eos % (Auto) 0.9 Baso % (Auto) 0.3 Absolute Neuts (auto) 6.3 Absolute Lymphs (auto) 2.78 Total Counted Not Reportable PT 13.1 INR 1.0 APTT 29.7 Sodium Potassium Chloride Carbon Dioxide Anion Gap BUN Creatinine Estim Creat Clear Calc Est GFR (MDRD) Af Amer Est GFR (MDRD) Non-Af BUN/Creatinine Ratio Glucose Calcium Magnesium Troponin I Triglycerides Cholesterol LDL Cholesterol VLDL Cholesterol HDL Cholesterol TSH POC Glucose 67 L 08/07/18 08/07/18 08/07/18 20:00 20:23 22:00 WBC RBC Hgb Hct MCV MCH MCHC RDW RDW Differential Plt Count MPV Immature Gran % (Auto) Neut % (Auto) Lymph % (Auto) Faulk % (Auto) Eos % (Auto) Baso % (Auto) Absolute Neuts (auto) Absolute Lymphs (auto) Total Counted PT INR APTT Sodium 136 Potassium 3.6 Chloride 103 Carbon Dioxide 26.0 Anion Gap 7 BUN 16 Creatinine 0.98 Estim Creat Clear Calc 96.69 Est GFR (MDRD) Af Amer 102 Est GFR (MDRD) Non-Af 84 BUN/Creatinine Ratio 16.4 Glucose 84 Calcium 8.6 Magnesium 2.0 Troponin I < 0.015 Triglycerides Cholesterol LDL Cholesterol VLDL Cholesterol HDL Cholesterol TSH 2.32 POC Glucose 99 08/08/18 08/08/18 06:25 06:25 WBC 6.2 RBC 4.77 Hgb 13.3 Hct 40.7 MCV 85.3 MCH 27.9 MCHC 32.7 RDW 13.8 RDW Differential 42.4 Plt Count 384 MPV 9.4 Immature Gran % (Auto) 0.200 Neut % (Auto) 79.8 H Lymph % (Auto) 18.0 L Faulk % (Auto) 1.8 Eos % (Auto) 0.0 Baso % (Auto) 0.2 Absolute Neuts (auto) 4.9 Absolute Lymphs (auto) 1.11 Total Counted Not Reportable PT INR APTT Sodium 137 Potassium 4.7 Chloride 103 Carbon Dioxide 23.0 Anion Gap 11 BUN 15 Creatinine 0.95 Estim Creat Clear Calc 99.75 Est GFR (MDRD) Af Amer 105 Est GFR (MDRD) Non-Af 87 BUN/Creatinine Ratio 15.8 Glucose 155 H Calcium 8.2 L Magnesium Troponin I Triglycerides 68 Cholesterol 172 LDL Cholesterol 120 VLDL Cholesterol 14 HDL Cholesterol 38 L TSH POC Glucose POC Glucose 08/07/18 08/07/18 20:23 19:54 POC Glucose 99 67 L Current Home Med List Medication Instructions Recorded Confirmed Type Citalopram Hydrobromide 40 mg PO DAILY 07/05/16 08/08/18 History [Citalopram HBr] Amlodipine [Norvasc] 10 mg PO DAILY 12/29/17 08/08/18 History Zolpidem Tartrate [Ambien] 10 mg PO QHS 04/27/18 08/08/18 History Lisinopril [Zestril] 40 mg PO DAILY 08/08/18 08/08/18 History Current Medications Generic Name Dose Route Start Last Admin Trade Name Freq PRN Reason Stop Dose Admin Acetaminophen 650 mg 08/07/18 22:39 Tylenol PO Q4H PRN PRN Headache/Temp>99F Acetaminophen 650 mg 08/07/18 22:39 Tylenol RECTAL Q4H PRN PRN Headache/Temp>99F Acetaminophen 650 mg 08/07/18 22:39 Tylenol Liquid NG Q4H PRN PRN Headache/Temp>99F Al Hydroxide/Mg Hydroxide 30 ml 08/07/18 22:39 Mylanta Ii PO Q6H PRN PRN Gastric burning Aspirin 81 mg 08/08/18 08:00 08/08/18 08:53 Aspirin, Baby PO 81 mg DAILY@0800 [facility] Administration Citalopram Hydrobromide 40 mg 08/08/18 10:00 08/08/18 08:54 Celexa PO 40 mg DAILY [facility] Administration Dexamethasone Sodium Phosphate 4 mg 08/07/18 22:39 08/08/18 06:09 Decadron IV 4 mg Q6 [facility] Administration Docusate Sodium 200 mg 08/07/18 22:39 08/08/18 08:54 Colace PO 200 mg BID [facility] Administration Enoxaparin Sodium 40 mg 08/08/18 10:00 08/08/18 08:54 Lovenox SC 40 mg DAILY@1000 [facility] Administration Famotidine 20 mg 08/07/18 22:39 08/08/18 08:55 Pepcid PO 20 mg BID [facility] Administration Ferrous Gluconate 324 mg 08/08/18 08:00 08/08/18 08:54 Ferrous Gluconate PO 324 mg BIDCM [facility] Administration Gabapentin 100 mg 08/07/18 22:53 08/08/18 08:54 Neurontin PO 100 mg BIDCM [facility] Administration Hydralazine HCl 10 mg 08/07/18 22:39 Apresoline Iv IV Q4H PRN SBP > 180 Sodium Chloride 1,000 mls @ 125 mls/hr 08/07/18 22:39 08/07/18 23:47 IV 125 mls/hr .Q8H [facility] Administration Valproic Acid 500 mg/ Dextrose 55 mls @ 50 mls/hr 08/07/18 22:55 08/08/18 06:09 IV 50 mls/hr Q6 [facility] Administration Ketorolac Tromethamine 15 mg 08/07/18 22:39 08/08/18 06:09 Toradol IV 08/09/18 06:01 15 mg Q8 [facility] Administration Labetalol HCl 10 mg 08/07/18 22:39 Trandate IV 08/08/18 22:40 Q10M PRN SBP > 180 Magnesium Hydroxide 30 ml 08/07/18 22:39 Milk Of Magnesia PO DAILY PRN Constipation Ondansetron HCl 4 mg 08/07/18 22:39 Zofran IV Q8H PRN PRN NAUSEA Polyethylene Glycol 17 gm 08/08/18 10:00 08/08/18 08:53 Miralax PO Not Given DAILY [facility] Promethazine HCl 12.5 mg 08/07/18 22:39 Phenergan IV Q6H PRN PRN NAUSEA/VOMITING Sodium Chloride 5 - 30 ml 08/08/18 00:35 08/08/18 06:09 IV 10 ml UD PRN Administration SALINE FLUSH Trazodone HCl 50 mg 08/07/18 22:39 08/07/18 23:52 Desyrel PO 50 mg QHS [facility] Administration Assessment/Plan All Active Problems DVT prophylaxis (Acute) TIA (transient ischemic attack) (Acute) Migraine (Acute) Noncompliance with medication regimen (Acute) Hypertensive urgency (Acute) LALITA (acute kidney injury) (Ruled-out) Headache (Acute) headache, combination of medication overuse, migraine, possible htn urgency as well, in addition to anxiety. insomnia may contribute as well, currently treated with sleep aide at night (ambien 10mg). also snorer. await mri treat migriane avoid nsaids recommend outpt psg recommend
--- NOTE | 2018-08-08 11:12 | CASEMGMT ---
Face to Face with patient for initial transition planning/care coordination assessment. RN JONNATHAN introduced self and role at [facility], pt voices understanding. Care providers, pharmacy, and demographics verified. PCP: Dr. De Santiago Preferred Pharmacy: [facility] Insurance: [facility] Will/HPOA: Has both, copies not here. Shana is listed as HPOA. Living Arrangements: Pt lives in a 2 story home with 13 steps to the second floor and 3 steps to get into the home. 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 Pt states his is able to assist him if needed. Pt denies any mobility concerns at this time. Transportation: Drives independently DME/HHC: None Plan: Pt plans to return home. Pt denies any needs. MRI, neuro consult and therapy evals pending. Will continue to follow for any identified discharge needs.
[2018-08-08] MEDS: 0.9% Normal Saline 1,000 ML 125 ML IV (12:50)
[2018-08-08] MEDS: DiphenhydrAMINE 50 MG/ML Syringe IV (13:59)
[2018-08-08] MEDS: LORazepam 2 MG/ML Syringe 0.5 MG IV (14:04)
--- NOTE | 2018-08-08 16:06 | PCM.PN.HOSP ---
Patient Problems: Active and Suspected Problems TIA (transient ischemic attack) (Acute) Migraine (Acute) Subjective: Patient seen and examined. Was admitted with a complaint of headache. He is been managed for migraines. Patient seen and examined. He had no complaints. He did say headache was still present and oriented about 7 out of 10. He denied any fever chills, cough or chest pain, shortness of breath, abdominal pain, any diarrhea vomiting. He has been admitted and managed for migraines in the past and was scheduled to follow-up with neurology but he never did. Labs and vitals reviewed. Vitals/I&O's: Vital Signs Temp Pulse Resp BP Pulse Ox 98.2 F 88 15 162/89 H 96 08/08/18 10:26 08/08/18 11:21 08/08/18 10:26 08/08/18 10:26 08/08/18 10:26 Oxygen Flow Rate (L/min) 2 Oxygen Delivery Method Room Air Weight: 251 lb 15.814 oz Body Mass Index (BMI) 32.3 Finger Stick Blood Glucose 99 Intake and Output for Last 24 Hours 08/06/18 08/07/18 08/08/18 23:59 23:59 23:59 Intake Total 1902 / 1902 Output Total 475 / 475 Balance 1427 / 1427 General: Alert, Oriented x3, Cooperative, No apparent distress HEENT: Atraumatic, PERRLA, EOMI, Normocephalic Oral: Moist Mucosa Neck: Supple, No JVD, Negative Carotid Bruits Lungs: Clear to auscultation, Normal air movement Cardiovascular: Regular rate, Regular Rhythm, Normal S1, Normal S2, No murmurs Abdomen: Bowel Sounds Present, Soft, Non Tender, Non-Distended, No Hepato-splenomegaly Extremities: No clubbing, No cyanosis, No edema, Capillary Refill Less than 3 Seconds Skin: No rashes, No breakdown Musculoskeletal: No Tenderness to Palpation of Joints or Extremities Lymphatic: No Cervical, Supraclavicular, or Inguinal Adenopathy Neurological: Cranial nerves II-XII grossly intact, Neuro grossly intact, Motor Exam 5/5 strength throughout Psych/Mental Status: Normal Affect, Appropriate, Alert and oriented to time, place, person, mood and affect Laboratory Results 08/07/18 19:54: POC Glucose 67 L 08/07/18 20:00: WBC 9.8, RBC 4.88, Hgb 13.8, Hct 41.3, MCV 84.6, MCH 28.3, MCHC 33.4, RDW 13.9, RDW Differential 43.3, Plt Count 388, MPV 9.4, Immature Gran % (Auto) 0.200, Neut % (Auto) 64.0, Lymph % (Auto) 28.5, Jones % (Auto) 6.1, Eos % (Auto) 0.9, Baso % (Auto) 0.3, Absolute Neuts (auto) 6.3, Absolute Lymphs (auto) 2.78, Total Counted Not Reportable 08/07/18 20:00: PT 13.1, INR 1.0, APTT 29.7 08/07/18 20:00: Sodium 136, Potassium 3.6, Chloride 103, Carbon Dioxide 26.0, Anion Gap 7, BUN 16, Creatinine 0.98, Estim Creat Clear Calc 96.69, Est GFR (MDRD) Af Amer 102, Est GFR (MDRD) Non-Af 84, BUN/Creatinine Ratio 16.4, Glucose 84, Calcium 8.6, Troponin I < 0.015 08/07/18 20:23: POC Glucose 99 08/07/18 22:00: Magnesium 2.0, TSH 2.32 08/08/18 06:25: WBC 6.2, RBC 4.77, Hgb 13.3, Hct 40.7, MCV 85.3, MCH 27.9, MCHC 32.7, RDW 13.8, RDW Differential 42.4, Plt Count 384, MPV 9.4, Immature Gran % (Auto) 0.200, Neut % (Auto) 79.8 H, Lymph % (Auto) 18.0 L, Jones % (Auto) 1.8, Eos % (Auto) 0.0, Baso % (Auto) 0.2, Absolute Neuts (auto) 4.9, Absolute Lymphs (auto) 1.11, Total Counted Not Reportable 08/08/18 06:25: Sodium 137, Potassium 4.7, Chloride 103, Carbon Dioxide 23.0, Anion Gap 11, BUN 15, Creatinine 0.95, Estim Creat Clear Calc 99.75, Est GFR (MDRD) Af Amer 105, Est GFR (MDRD) Non-Af 87, BUN/Creatinine Ratio 15.8, Glucose 155 H, Calcium 8.2 L, Triglycerides 68, Cholesterol 172, LDL Cholesterol 120, VLDL Cholesterol 14, HDL Cholesterol 38 L Diagnostic Data Brain CT 08/07/18 19:53 IMPRESSION: Chronic involutional changes of the brain. No acute hemorrhage Electronically Signed: Mo Rowe MD at 21:24 EST , Service support , Chest X-Ray 08/07/18 19:55 IMPRESSION: No acute cardiopulmonary disease process is seen. Chest findings are stable in the interval. Electronically Signed: Patrice Red MD at 20:33 EST , Service support , Current Medications Acetaminophen (Tylenol) 650 mg PO Q4H PRN PRN PRN Reason: Headache/Temp>99F Acetaminophen (Tylenol) 650 mg RECTAL Q4H PRN PRN PRN Reason: Headache/Temp>99F Acetaminophen (Tylenol Liquid) 650 mg NG Q4H PRN PRN PRN Reason: Headache/Temp>99F Al Hydroxide/Mg Hydroxide (Mylanta Ii) 30 ml PO Q6H PRN PRN PRN Reason: Gastric burning Aspirin (Aspirin, Baby) 81 mg PO DAILY@0800 [facility] Last Admin: 08/08/18 08:53 Dose: 81 mg Citalopram Hydrobromide (Celexa) 40 mg PO DAILY [facility] Last Admin: 08/08/18 08:54 Dose: 40 mg Dexamethasone Sodium Phosphate (Decadron) 4 mg IV Q6 [facility] Last Admin: 08/08/18 12:44 Dose: 4 mg Docusate Sodium (Colace) 200 mg PO BID [facility] Last Admin: 08/08/18 08:54 Dose: 200 mg Enoxaparin Sodium (Lovenox) 40 mg SC DAILY@1000 [facility] Last Admin: 08/08/18 08:54 Dose: 40 mg Famotidine (Pepcid) 20 mg PO BID [facility] Last Admin: 08/08/18 08:55 Dose: 20 mg [facility] Last Admin: 08/08/18 08:54 Dose: 324 mg Gabapentin (Neurontin) 100 mg PO BIDCM [facility] Last Admin: 08/08/18 08:54 Dose: 100 mg Hydralazine HCl (Apresoline Iv) 10 mg IV Q4H PRN PRN Reason: SBP > 180 Sodium Chloride () 1,000 mls @ 125 mls/hr IV .Q8H [facility] Last Admin: 08/08/18 12:50 Dose: 125 mls/hr Valproic Acid 500 mg/ Dextrose 55 mls @ 50 mls/hr IV Q6 [facility] Last Admin: 08/08/18 12:44 Dose: 50 mls/hr Ketorolac Tromethamine (Toradol) 15 mg IV Q8 [facility] Stop: 08/09/18 06:01 Last Admin: 08/08/18 06:09 Dose: 15 mg Labetalol HCl (Trandate) 10 mg IV Q10M PRN PRN Reason: SBP > 180 Stop: 08/08/18 22:40 Magnesium Hydroxide (Milk Of Magnesia) 30 ml PO DAILY PRN PRN Reason: Constipation Ondansetron HCl (Zofran) 4 mg IV Q8H PRN PRN PRN Reason: NAUSEA Polyethylene Glycol (Miralax) 17 gm PO DAILY [facility] Last Admin: 08/08/18 08:53 Dose: Not Given Promethazine HCl (Phenergan) 12.5 mg IV Q6H PRN PRN PRN Reason: NAUSEA/VOMITING Sodium Chloride () 5 - 30 ml IV UD PRN PRN Reason: SALINE FLUSH Last Admin: 08/08/18 12:44 Dose: 10 ml Trazodone HCl (Desyrel) 50 mg PO QHS [facility] Last Admin: 08/07/18 23:52 Dose: 50 mg Medical Necessity - Tobacco Use Smoking Status: Never smoker Tobacco Use: Non-smoker Assessment/Plan All Active Problems DVT prophylaxis (Acute) TIA (transient ischemic attack) (Acute) Migraine (Acute) Noncompliance with medication regimen (Acute) Hypertensive urgency (Acute) LALITA (acute kidney injury) (Ruled-out) Headache (Acute) 1. Migraine headache Admitted with headaches which still persists. He has been seen in the past for chronic headaches and was treated with Depakote but did not follow-up. Neurology on board. To have MRI today CT brain showed no acute intracranial pathology With Depakote. On IV Decadron and IV Toradol. Avoid NSAIDs. 2. Confusion and weakness concerning for TIA: resolved. having MRI today to assess for any intracranial pathology 3. History of CVA: on aspirin, statin 4. Suspected PEYTON: for outpatient sleep study 5. Iron deficiency anemia: on iron supplementation 6. Obesity: Counseled on weight loss and lifestyle changes. 7. Hypertension: BP in 160s systolic. The pain meds were held on admission on account of suspicion for stroke and to allow permissive hypertension. Will resume BP meds. 8. Depression: On citalopram DVT prophylaxis: Lovenox Code Visit OBSV E&M: 16184 Subsequent observation care L3
--- NOTE | 2018-08-08 16:12 | PN_ITS ---
Patient Problems: Active and Suspected Problems TIA (transient ischemic attack) (Acute) Migraine (Acute) Subjective: Patient seen and examined. Was admitted with a complaint of headache. He is been managed for migraines. Patient seen and examined. He had no complaints. He did say headache was still present and oriented about 7 out of 10. He denied any fever chills, cough or chest pain, shortness of breath, abdominal pain, any diarrhea vomiting. He has been admitted and managed for migraines in the past and was scheduled to follow-up with neurology but he never did. Labs and vitals reviewed. Vitals/I&O's: Vital Signs Temp Pulse Resp BP Pulse Ox 98.2 F 88 15 162/89 H 96 08/08/18 10:26 08/08/18 11:21 08/08/18 10:08/08/18 10:26 08/08/18 10:26 Oxygen Flow Rate (L/min) 2 Oxygen Delivery Method Room Air Weight: 251 lb 15.814 oz Body Mass Index (BMI) 32.3 Finger Stick Blood Glucose 99 Intake and Output for Last 24 Hours 08/06/18 08/07/18 08/08/18 23:59 23:59 23:59 Intake Total 1902 / 1902 Output Total 475 / 475 Balance 1427 / 1427 General: Alert, Oriented x3, Cooperative, No apparent distress HEENT: Atraumatic, PERRLA, EOMI, Normocephalic Oral: Moist Mucosa Neck: Supple, No JVD, Negative Carotid Bruits Lungs: Clear to auscultation, Normal air movement Cardiovascular: Regular rate, Regular Rhythm, Normal S1, Normal S2, No murmurs Abdomen: Bowel Sounds Present, Soft, Non Tender, Non-Distended, No Hepato-s plenomegaly Extremities: No clubbing, No cyanosis, No edema, Capillary Refill Less than 3 Seconds Skin: No rashes, No breakdown Musculoskeletal: No Tenderness to Palpation of Joints or Extremities Lymphatic: No Cervical, Supraclavicular, or Inguinal Adenopathy Neurological: Cranial nerves II-XII grossly intact, Neuro grossly intact, Motor Exam 5/5 strength throughout Psych/Mental Status: Normal Affect, Appropriate, Alert and oriented to time, elie ce, person, mood and affect Laboratory Results 08/07/18 19:54: POC Glucose 67 L 08/07/18 20:00: WBC 9.8, RBC 4.88, Hgb 13.8, Hct 41.3, MCV 84.6, MCH 28.3, MCHC 33.4, RDW 13.9, RDW Differential 43.3, Plt Count 388, MPV 9.4, Immature Gran % (Auto) 0.200, Neut % (Auto) 64.0, Lymph % (Auto) 28.5, [place] % (Auto) 6.1, Eos % (Auto) 0.9, Baso % (Auto) 0.3, Absolute Neuts (auto) 6.3, Absolute Lymphs (auto) 2.78, Total Counted Not Reportable 08/07/18 20:00: PT 13.1, INR 1.0, APTT 29.7 08/07/18 20:00: Sodium 136, Potassium 3.6, Chloride 103, Carbon Dioxide 26.0, Anion Gap 7, BUN 16, Creatinine 0.98, Estim Creat Clear Calc 96.69, Est GFR (MDRD) Af Amer 102, Est GFR (MDRD) Non-Af 84, BUN/Creatinine Ratio 16.4, Glucose 84, Calcium 8.6, Troponin I < 0.015 08/07/18 20:23: POC Glucose 99 08/07/18 22:00: Magnesium 2.0, TSH 2.32 08/08/18 06:25: WBC 6.2, RBC 4.77, Hgb 13.3, Hct 40.7, MCV 85.3, MCH 27.9, MCHC 32.7, RDW 13.8, RDW Differential 42.4, Plt Count 384, MPV 9.4, Immature Gran % (Auto) 0.200, Neut % (Auto) 79.8 H, Lymph % (Auto) 18.0 L, [place] % (Auto) 1.8, Eos % (Auto) 0.0, Baso % (Auto) 0.2, Absolute Neuts (auto) 4.9, Absolute Lymphs (auto) 1.11, Total Counted Not Reportable 08/08/18 06:25: Sodium 137, Potassium 4.7, Chloride 103, Carbon Dioxide 23.0, Anion Gap 11, BUN 15, Creatinine 0.95, Estim Creat Clear Calc 99.75, Est GFR (MDRD) Af Amer 105, Est GFR (MDRD) Non-Af 87, BUN/Creatinine Ratio 15.8, Glucose 155 H, Calcium 8.2 L, Triglycerides 68, Cholesterol 172, LDL Cholesterol 120, VLDL Cholesterol 14, HDL Cholesterol 38 L Diagnostic Data Brain CT 08/07/18 19:53 IMPRESSION: Chronic involutional changes of the brain. No acute hemorrhage Electronically Signed: Mo Rowe MD at 21:24 EST , Service support , Chest X-Ray 08/07/18 19:55 IMPRESSION: No acute cardiopulmonary disease process is seen. Chest findings are stable in the interval. Electronically Signed: Patrice Red MD at 20:33 EST , Service support , Current Medications Acetaminophen (Tylenol) 650 mg PO Q4H PRN PRN PRN Reason: Headache/Temp>99F Acetaminophen (Tylenol) 650 mg RECTAL Q4H PRN PRN PRN Reason: Headache/Temp>99F Acetaminophen (Tylenol Liquid) 650 mg NG Q4H PRN PRN PRN Reason: Headache/Temp>99F Al Hydroxide/Mg Hydroxide (Mylanta Ii) 30 ml PO Q6H PRN PRN PRN Reason: Gastric burning Aspirin (Aspirin, Baby) 81 mg PO DAILY@0800 [facility] Last Admin: 08/08/18 08:53 Dose: 81 mg Citalopram Hydrobromide (Celexa) 40 mg PO DAILY [facility] Last Admin: 08/08/18 08:54 Dose: 40 mg Dexamethasone Sodium Phosphate (Decadron) 4 mg IV Q6 [facility] Last Admin: 08/08/18 12:44 Dose: 4 mg Docusate Sodium (Colace) 200 mg PO BID [facility] Last Admin: 08/08/18 08:54 Dose: 200 mg Enoxaparin Sodium (Lovenox) 40 mg SC DAILY@1000 [facility] Last Admin: 08/08/18 08:54 Dose: 40 mg Famotidine (Pepcid) 20 mg PO BID [facility] Last Admin: 08/08/18 08:55 Dose: 20 mg [facility]ous [facility] Admin: 08/08/18 08:54 Dose: 324 mg Gabapentin (Neurontin) 100 mg PO BIDCM [facility] Last Admin: 08/08/18 08:54 Dose: 100 mg Hydralazine HCl (Apresoline Iv) 10 mg IV Q4H PRN PRN Reason: SBP > 180 Sodium Chloride () 1,000 mls @ 125 mls/hr IV .Q8H [facility] Last Admin: 08/08/18 12:50 Dose: 125 mls/hr Valproic Acid 500 mg/ Dextrose 55 mls @ 50 mls/hr IV Q6 [facility] Last Admin: 08/08/18 12:44 Dose: 50 mls/hr Ketorolac Tromethamine (Toradol) 15 mg IV Q8 [facility] Stop: 08/09/18 06:01 Last Admin: 08/08/18 06:09 Dose: 15 mg Labetalol HCl (Trandate) 10 mg IV Q10M PRN PRN Reason: SBP > 180 Stop: 08/08/18 22:40 Magnesium Hydroxide (Milk Of Magnesia) 30 ml PO DAILY PRN PRN Reason: Constipation Ondansetron HCl (Zofran) 4 mg IV Q8H PRN PRN PRN Reason: NAUSEA Polyethylene Glycol (Miralax) 17 gm PO DAILY [facility] Last Admin: 08/08/18 08:53 Dose: Not Given Promethazine HCl (Phenergan) 12.5 mg IV Q6H PRN PRN PRN Reason: NAUSEA/VOMITING Sodium Chloride () 5 - 30 ml IV UD PRN PRN Reason: SALINE FLUSH Last Admin: 08/08/18 12:44 Dose: 10 ml Trazodone HCl (Desyrel) 50 mg PO QHS [facility] Last Admin: 08/07/18 23:52 Dose: 50 mg Medical Necessity - Tobacco Use Smoking Status: Never smoker Tobacco Use: Non-smoker Assessment/Plan All Active Problems DVT prophylaxis (Acute) TIA (transient ischemic attack) (Acute) Migraine (Acute) Noncompliance with medication regimen (Acute) Hypertensive urgency (Acute) LALITA (acute kidney injury) (Ruled-out) Headache (Acute) 1. Migraine headache * Admitted with headaches which still persists. He has been seen in the past for chronic headaches and was treated with Depakote but did not follow-up. * Neurology on board. To have MRI today * CT brain showed no acute intracranial pathology * With Depakote. * On IV Decadron and IV Toradol. Avoid NSAIDs. * 2. Confusion and weakness concerning for TIA: resolved. having MRI today to assess for any intracranial pathology 3. History of CVA: on aspirin, statin 4. Suspected PEYTON: for outpatient sleep study 5. Iron deficiency anemia: on iron supplementation 6. Obesity: Counseled on weight loss and lifestyle changes. 7. Hypertension: * BP in 160s systolic. * The pain meds were held on admission on account of suspicion for stroke and to allow permissive hypertension. * Will resume BP meds. * 8. Depression: On citalopram DVT prophylaxis: Lovenox Code Visit OBSV E&M: 89399 Subsequent observation care L3
[2018-08-08] MEDS: hydrALAZINE 20 MG/ML Vial 10 MG IV (17:10)
[2018-08-08] MEDS: Metoprolol Tartrate 5 MG/5 ML Vial 2.5 MG IV (19:43)
[2018-08-08] MEDS: Lisinopril 40 MG Tablet PO (19:44)
[2018-08-08] MEDS: amLODIPine 10 MG Tablet PO (19:44)
[2018-08-08 19:51] LABS: Bedside Glucose 197 mg/dL (70-110)
[2018-08-08] MEDS: Zolpidem Tartrate 5 MG Tablet PO (21:51)
[2018-08-08] MEDS: traZODone 50 MG Tablet PO (21:51)
[2018-08-09] VITALS (17 sets, daily range): BP systolic 126–166; BP diastolic 74–94; PULSE 65–110; RESP 16–20; TEMP 36.4–36.8; O2SAT 96–99
[2018-08-09] MEDS: Zolpidem Tartrate 5 MG Tablet PO (00:25)
[2018-08-09 06:26] LABS: Absolute Lymphocyte Count 1.42 X10^3/ul (0.83-4.51); Absolute Neutrophil Count 14.8 X10^3/uL (2.0-7.7); Basophil# 0.01 X10^3/uL; Basophil% 0.1 % (0-1); Hematocrit 39.8 % (40-54); Hemoglobin 12.9 g/dl (13.0-16.5); Lymphocyte # 1.42 X10^3/ul (4.0); Lymphocyte % 8.4 % (19-41); Mean Corp Hgb Conc 32.4 g/gl (32-36); Mean Corpuscular Hgb 27.5 pg (27.0-32.0); Mean Corpuscular Volume 84.9 fL (80-94); Mean Platelet Vol. 9.6 fl (6.2-12.0); Monocyte# 0.77 X10^3/uL; Monocyte% 4.5 % (0-10); Neutrophil # 14.76 X10^3/uL (2.7-7.7); Neutrophil % 86.8 % (47-70); Platelet Count 401 K/mm3 (150-450); RBC Distribution Width SD 43.5 fl (35.1-43.9); Red Blood Count 4.69 M/mm3 (4.6-6.2)
[2018-08-09 06:47] LABS: Anion Gap 10 (5-15); BUN 22 mg/dL (7-18); BUN/Creat Ratio 23.6 RATIO (10-20); Calcium,Total 8.5 mg/dL (8.5-10.1); Chloride 106 mmol/L (98-107); Creatinine, Serum 0.93 mg/dL (0.70-1.30); EST Glomerular Filtration Rate 89 mL/min (>60); Est Glom Filt Rate - Afr Amer 107 mL/min (>60); Estimated Creatinine Clearance 101.89 ml/min; Glucose 199 mg/dL (74-106); Potassium 4.4 mmol/L (3.5-5.1); Sodium Level 138 mmol/L (136-145)
[2018-08-09 07:02] LABS: POSITIVE COUNT NO; POSITIVE DIFFERENTIAL NO; POSITIVE MORPHOLOGY NO
[2018-08-09] MEDS: Ketorolac 15 MG/ML Vial IV (07:04)
[2018-08-09] MEDS: Aspirin 81 MG TAB.CHEW PO (08:24)
[2018-08-09] MEDS: Ferrous Gluconate 324 MG Tablet PO ×2 (08:24→16:47)
[2018-08-09] MEDS: Gabapentin 100 MG Capsule PO ×2 (08:24→16:48)
[2018-08-09] MEDS: Citalopram 40 MG TABLET PO (08:25)
[2018-08-09] MEDS: Enoxaparin 40 MG/0.4 ML Syringe SC (08:25)
[2018-08-09] MEDS: Docusate Sodium 100 MG Capsule 200 MG PO ×2 (08:25→21:56)
[2018-08-09] MEDS: amLODIPine 10 MG Tablet PO (08:26)
[2018-08-09] MEDS: Famotidine 20 MG Tablet PO ×2 (08:26→21:56)
[2018-08-09] MEDS: Lisinopril 40 MG Tablet PO (08:26)
[2018-08-09] MEDS: 0.9% NaCl Peripheral Flush Adult/Peds IV ×2 (12:09→18:21)
[2018-08-09] MEDS: Acetaminophen 325 MG Tablet 650 MG PO (12:11)
[2018-08-09] MEDS: Acetaminophen/Butalbital/Caffe 1 Tablet 2 TABLET PO (15:04)
[2018-08-09] MEDS: Metoprolol Tartrate 50 MG Tablet PO (16:44)
[2018-08-09] MEDS: oxyCODONE 5 MG Tablet 15 MG PO (16:45)
--- NOTE | 2018-08-09 17:18 | CHAPLAIN ---
Type of Pastoral Visit _x__ Initial Visit ___ Follow-up Visit ___ On-call Visit ___ General Patient Visit ___ Spiritual Assessment ___ Family Conference ___ Bereavement ___ Rapid Response ___ Code Blue ___ Other (describe below) Pastoral Care Referral From _x__ Patient ___ Family ___ Nurse ___ Physician ___ Events Administrative Assistant ___ Event Mgr ___ Other (describe below) Sacrament/Intervention _x__ Active listening ___ Anointing ___ Jainism ___ Bereavement ___ Communion _x__ Hyun exploration ___ _x__ Life review _x__ Prayer ___ Reconciliation ___ Sacrament of Sick _x__ Supportive presence ___ Wedding ___ Other (describe below) Pastoral Comments patient has been seen by this pattern wheel maker in previous admission; pt claims stress as a problem; pt asks for spiritual guidance on how to deal with stress; pt requests prayer and is open to future visits
--- NOTE | 2018-08-09 19:26 | PN_ITS ---
Patient Problems: Active and Suspected Problems TIA (transient ischemic attack) (Acute) Migraine (Acute) Subjective: Patient was seen and examined today, I spent some time talking with him today and ultimately talked with his . Patient has had a headache all day long, I have given him Fioricet, OxyIR, and he is remained on IV Decadron and IV Depakote. Patient also had periods of rapid respiration and complaint of being short of breath although his pulse ox was 96% on room air. I feel the patient most likely has an anxiety disorder, he became very defensive today when I talked with him at times and said he would just go home. Patient's echocardiogram today showed a preserved EF, he had a brief period of ventricular bigeminy that was asymptomatic. His blood pressure remained elevated today and I elected to place him on a beta-lorenzo. I do not feel at this time that the patient is safe to go home due to his headache, I think he may need to be seen again by neurology tomorrow for reevaluation of his problem, patient denies any history of migraine cephalgia. Patient's MRI showed no evidence of acute ischemic stroke. Patient does state in the past he was told he had a stroke but was not told to remain on aspirin which I feel is odd. - Physical Exam General: Alert, Oriented x3, Cooperative, No apparent distress, Well developed, Well nourished HEENT: Atraumatic, PERRLA, EOMI, Normocephalic Oral: Moist Mucosa Neck: Supple, No Nuchal Rigidity, Trachea Midline, Thyroid Normal Size and Texture Lungs: Clear to auscultation, Normal air movement, No rhonchi, No wheeze, No rales Cardiovascular: Regular rate, Regular Rhythm, Normal S1, Normal S2, No murmurs, No Ectopic Activity Abdomen: Bowel Sounds Present, Soft, Non Tender, Non-Distended Extremities: No clubbing, No cyanosis, No edema, Capillary Refill Less than 3 Seconds Skin: No rashes, No breakdown Musculoskeletal: No Tenderness to Palpation of Joints or Extremities Neurological: Cranial nerves II-XII grossly intact, Neuro grossly intact, Sensory exam intact to light touch and pain, Coordination normal Psych/Mental Status: Appropriate, Flat Affect, Alert and oriented to time, place, person, mood and affect Vital Signs Temp Pulse Resp BP Pulse Ox 98.0 F 98 16 166/87 H 99 08/09/18 16:00 08/09/18 16:44 08/09/18 16:00 08/09/18 16:00 08/09/18 16:00 Oxygen Flow Rate (L/min) [ 0 AMBULATING on Room Air] Oxygen Flow Rate (L/min) [At 0 REST on Room Air] Oxygen Flow Rate (L/min) 2 Oxygen Delivery Method Room Air Weight: 114.3 kg Body Mass Index (BMI) 32.3 Finger Stick Blood Glucose 99 Intake and Output for Last 24 Hours 08/07/18 08/08/18 08/09/18 23:59 23:59 23:59 Intake Total 2691 / 2691 2066 Output Total 475 / 475 Balance 221 / 2216 2066 Laboratory Tests Past 24 Hrs 08/09/18 08/09/18 05:45 05:45 WBC 17.0 H RBC 4.69 Hgb 12.9 L Hct 39.8 L MCV 84.9 MCH 27.5 MCHC 32.4 RDW 14.0 RDW Differential 43.5 Plt Count 401 MPV 9.6 Immature Gran % (Auto) 0.200 Neut % (Auto) 86.8 H Lymph % (Auto) 8.4 L [place] % (Auto) 4.5 Eos % (Auto) 0.0 Baso % (Auto) 0.1 Absolute Neuts (auto) 14.8 H Absolute Lymphs (auto) 1.42 Total Counted Not Reportable Sodium 138 Potassium 4.4 Chloride 106 Carbon Dioxide 22.0 Anion Gap 10 BUN 22 H Creatinine 0.93 Estim Creat Clear Calc 101.89 Est GFR (MDRD) Af Amer 107 Est GFR (MDRD) Non-Af 89 BUN/Creatinine Ratio 23.6 H Glucose 199 H Calcium 8.5 POC Glucose 08/08/18 18:19 POC Glucose 197 H Medical Necessity - Tobacco Use Smoking Status: Never smoker Tobacco Use: Non-smoker Assessment/Plan All Active Problems DVT prophylaxis (Acute) TIA (transient ischemic attack) (Acute) Migraine (Acute) Noncompliance with medication regimen (Acute) Hypertensive urgency (Acute) LALITA (acute kidney injury) (Ruled-out) Headache (Acute) #1 cephalgia-etiology unclear at this point, it is neurology's opinion that it may be secondary to migraine, neurology will need to reevaluate the patient tomorrow, for now, he will remain on his present medications #2 depression with questionable compliance on his medications #3 complaints of acute dyspnea-etiology unclear at this point, patient's pulse ox has remained high on room air #4 probable anxiety disorder #5 cerebrovascular disease without acute infarction #6 hypertension-patient was placed on metoprolol in addition to his other blood pressure medications. Code Visit OBSV E&M: 27656 Subsequent observation care L3
[2018-08-09] MEDS: traZODone 50 MG Tablet PO (21:56)
[2018-08-09] MEDS: Zolpidem Tartrate 5 MG Tablet 10 MG PO (21:56)
[2018-08-10] VITALS (11 sets, daily range): BP systolic 125–164; BP diastolic 81–94; PULSE 53–73; RESP 16–24; TEMP 36.3–36.4; O2SAT 95–100
[2018-08-10] MEDS: Gabapentin 100 MG Capsule PO (08:53)
[2018-08-10] MEDS: Aspirin 81 MG TAB.CHEW PO (08:53)
[2018-08-10] MEDS: Polyethylene Glycol 3350 17 GM PACKET PO (09:08)
[2018-08-10] MEDS: Enoxaparin 40 MG/0.4 ML Syringe SC (09:08)
[2018-08-10] MEDS: Citalopram 40 MG TABLET PO (09:08)
[2018-08-10] MEDS: Famotidine 20 MG Tablet PO (09:09)
[2018-08-10] MEDS: Lisinopril 40 MG Tablet PO (09:09)
[2018-08-10] MEDS: Docusate Sodium 100 MG Capsule 200 MG PO (09:10)
[2018-08-10] MEDS: Metoprolol Tartrate 50 MG Tablet PO (09:10)
[2018-08-10] MEDS: amLODIPine 10 MG Tablet PO (09:10)
[2018-08-10] MEDS: Ferrous Gluconate 324 MG Tablet PO (09:50)
[2018-08-10] MEDS: 0.9% NaCl Peripheral Flush Adult/Peds IV (11:29)
--- NOTE | 2018-08-10 11:32 | DCINST_ITS ---
- Discharge Diagnoses Current Active Problems: Current Active and Chronic Problems Anxiety and depression (Chronic) Chronic back pain (Chronic) TIA (transient ischemic attack) (Acute) Migraine (Acute) You will use the following diet at home:: Cardiac Your food should be the consistency of: Regular Discharge Activity: Return to Normal Activity Weight Bearing Status: Weight bearing as tolerated Call your doctor if you observe: - - worsening headache Allergies/Adverse Reactions: Allergies iohexol [From Omnipaque] Allergy (Verified 08/07/18 20:09) Rash Medications to take at Discharge Citalopram Hydrobromide [Citalopram HBr] 40 mg PO DAILY 07/05/16 Amlodipine [Norvasc] 10 mg PO DAILY 12/29/17 Zolpidem Tartrate [Ambien] 10 mg PO QHS 04/27/18 Lisinopril [Zestril] 40 mg PO DAILY 08/08/18 Acetaminophen [Tylenol Tablet] 650 mg PO Q4H PRN PRN #30 tablet 08/10/18 The following prescriptions were given: Acetaminophen [Tylenol Tablet] 650 mg PO Q4H PRN PRN #30 tablet PRN Reason: Headache/Temp>99F Primary Care Physician: Billy De Santiago MD [Primary Care Provider] - Please follow up with your Primary Care Physician in: one week Test Results: Test results from this visit will be discussed in further detail at your follow- up appointment, if applicable. Please Follow Up With: Frederick Whalen MD When: 1-2 weeks Please Follow Up With: Cheng Norris DO When: 2-4 weeks for outpatient sleep study Proposed Discharge Date: 08/10/18
--- NOTE | 2018-08-10 11:33 | PCM.DC.SUM ---
Discharge Date and Diagnosis - Problem List Patient Problems: Active and Suspected Problems TIA (transient ischemic attack) (Acute) Migraine (Acute) Date of Admission: 08/07/18 Date of Discharge: 08/10/18 - Primary Discharge Diagnosis Active and Suspected Problems TIA (transient ischemic attack) (Acute) Migraine (Acute) - Secondary Discharge Diagnosis Chronic Problems Thrombocytosis (Chronic) Iron deficiency anemia (Chronic) Anxiety and depression (Chronic) Chronic back pain (Chronic) Sleep disorder breathing (Chronic) CVA (cerebral vascular accident) (Chronic) Depression (Chronic) Benign essential hypertension (Chronic) Low back pain (Chronic) Urinary incontinence (Chronic) Obesity (BMI 30.0-34.9) (Chronic) Elevated PSA (Chronic) recent biopsies done by DR. Monk are negative Hospital Course and Treatment Imaging Results: Diagnostic Data Brain CT 08/07/18 19:53 IMPRESSION: Chronic involutional changes of the brain. No acute hemorrhage Electronically Signed: Mo Rowe MD at 21:24 EST , Service support , Chest X-Ray 08/07/18 19:55 IMPRESSION: No acute cardiopulmonary disease process is seen. Chest findings are stable in the interval. Electronically Signed: Patrice Red MD at 20:33 EST , Service support , Brain MRI 08/07/18 22:39 IMPRESSION: Chronic ischemic changes in the left frontal lobe. No evidence for acute infarct at this time. Electronically Signed: Rashaad Sellers MD at 16:37 EST , Service support , Head MRA 08/07/18 22:39 IMPRESSION: Normal MRA of the head Electronically Signed: Rashaad Sellers MD at 17:51 EST , Service support , Neck MRA 08/07/18 22:39 IMPRESSION: Normal bilateral cervical carotid and vertebral arteries. Electronically Signed: Rashaad Sellers MD at 17:52 EST , Service support , neurology- Dr Whalen Operations: None Procedures: None Summary of Care Provided: The patient is a 58 year old M with an extensive PMH as listed below. He was admitted with a complaint of headache, confusion and generalised weakness. He was admitted and managed for possible TIA and migraine headache. CT of the head and MRI of hte brain showed no acute pathology. He was started on depakote and prednisone for hte migraine. He had not been compliant with his meds. 2D echo done showed EF of 55%, with negative bubble conrsat study, normal LV SF. Neurology was consulted. Patient remained stable; his BP was not controlled so lopressor was added onto his meds.; He remained stable and was dischaged home on after being reviewed by [facility]; it was thought that anxiety played a role in his symptoms. Patient was seen and examined prior to discharge. He had no complaints and felt well. He denied any fever, chills, cough, chest pain, SOB, abdominal pain, diarrhea or vomiting. Headache was much better. LAbs and vitals reviewed. Home meds reviewed and reconciled. o/e: Vital Signs Height 6 ft 2 in Weight: 251 lb 15.814 oz Weight in Pounds 252.0 lbs Pulse Ox [AMBULATING on Room 97 Air] Pulse Ox [At REST on Room Air] 98 Pulse Ox 99 Temperature 97.6 F Pulse Rate 60 Respiratory Rate 20 Blood Pressure [BP] 157/79 Blood Pressure 125/88 Blood Pressure Position [BP] Semi-Fowlers Blood Pressure Position Sitting []General: Alert, Oriented x3, Cooperative, No apparent distress HEENT: Atraumatic, PERRLA, EOMI, Normocephalic Oral: Moist Mucosa Neck: Supple, No JVD, Negative Carotid Bruits Lungs: Clear to auscultation, Normal air movement Cardiovascular: Regular rate, Regular Rhythm, Normal S1, Normal S2, No murmurs Abdomen: Bowel Sounds Present, Soft, Non Tender, Non-Distended, No Hepato-splenomegaly Extremities: No clubbing, No cyanosis, No edema, Capillary Refill Less than 3 Seconds Skin: No rashes, No breakdown Musculoskeletal: No Tenderness to Palpation of Joints or Extremities Lymphatic: No Cervical, Supraclavicular, or Inguinal Adenopathy Neurological: Cranial nerves II-XII grossly intact, Neuro grossly intact, Motor Exam 5/5 strength throughout Psych/Mental Status: Normal Affect, Appropriate, Alert and oriented to time, place, person, mood and affect Plan as described above. He is to follow up with his PCP and neurologist. He is also to follow up with an outpatient counselor for anxiety issues. He is also to follow up with pulmonology for outpatient sleep study o/a of sleep apnea. Patient Problems: Active and Suspected Problems TIA (transient ischemic attack) (Acute) Migraine (Acute) - Physical Exam Psych/Mental Status: Alert and oriented to time, place, person, mood and affect Vital Signs Temp Pulse Resp BP Pulse Ox 97.6 F L 60 20 H 125/88 H 97 08/10/18 09:06 08/10/18 09:10 08/10/18 09:06 08/10/18 09:10 08/10/18 10:05 Oxygen Flow Rate (L/min) [ 0 AMBULATING on Room Air] Oxygen Flow Rate (L/min) [At 0 REST on Room Air] Oxygen Flow Rate (L/min) 2 Oxygen Delivery Method Room Air Weight: 251 lb 15.814 oz Body Mass Index (BMI) 32.3 Finger Stick Blood Glucose 99 Intake and Output for Last 24 Hours 08/08/18 08/09/18 08/10/18 23:59 23:59 23:59 Intake Total 2691 / 2691 2066 / 2066 1691 / 1691 Output Total 475 / 475 Balance 2216 / 2216 2066 1691 / 1691 Discharge Diet: Low fat/ Low Cholesterol Discharge Activity: Return to Normal Activity Weight Bearing Status: Weight bearing as tolerated Call your doctor if you observe: - - worsening headache Home Medications: Medications to take at Discharge Citalopram Hydrobromide [Citalopram HBr] 40 mg PO DAILY 07/05/16 Amlodipine [Norvasc] 10 mg PO DAILY 12/29/17 Zolpidem Tartrate [Ambien] 10 mg PO QHS 04/27/18 Lisinopril [Zestril] 40 mg PO DAILY 08/08/18 Acetaminophen [Tylenol Tablet] 650 mg PO Q4H PRN PRN #30 tablet 08/10/18 Metoprolol Tartrate [Lopressor (beta lorenzo)] 50 mg PO BID #60 tablet 08/10/18 Following Prescrptions Were Given to Patient: Acetaminophen [Tylenol Tablet] 650 mg PO Q4H PRN PRN #30 tablet PRN Reason: Headache/Temp>99F Metoprolol Tartrate [Lopressor (beta lorenzo)] 50 mg PO BID #60 tablet Primary Care Physician: Billy De Santiago MD [Primary Care Provider] - Please follow up with your Primary Care Physician in: one week Please Follow Up With: Frederick Whalen MD When: 1-2 weeks Please Follow Up With: Cheng Norris DO When: 2-4 weeks for outpatient sleep study Disposition: Home Minutes spent on discharge:: 40 Patient Condition:: Stable Medical Necessity - Tobacco Use Smoking Status: Never smoker Tobacco Use: Non-smoker Meaningful Use Info Meaningful Use Diagnoses (Choose all that apply): None applicable Code Visit Inpatient E&M: 04384 Disch Hosp
--- NOTE | 2018-08-10 11:35 | CASEMGMT ---
In morning huddle this am it was discussed that patient may benefit from a visit from Behavioral Health due to his anxiety. YU spoke with RN who agreed this would be a great idea. YU called David with Behavioral Health and let him know situation. He will be over to see patient. Kami JACQUES MSW
--- NOTE | 2018-08-10 12:11 | NURSING ---
ATTEMPTED TO MAKE APPOINTMENT WITH DR. CASTRO. STATES THEY WILL NOT MAKE ONE D/T PT BEING IN COLLECTIONS.
--- NOTE | 2018-08-10 12:42 | BH.NOTE ---
BH: Inpatient Note - Notes Behavioral Health Inpatient Note: 08/10/18 12:42 Referral from [facility] social work due to anxiety exacerbating medical issues. Met with pt in his room alone. Cooperative. Smiling at times. Pt denies active suicidal ideations, plan, or intent. No hx of attempts or psychiatric admissions. Admits to hx of depression and anxiety. Not currently linked with outpatient mental health treatment. Reports frustration with managing medical issues which include two strokes and bilateral knee surgery in the past few years. Notes that medical issues have led to stress at job and decrease in overall wellness. Admits to stress at home however is vague and guarded regarding the specifics. Working 60 hours a week. Was open to referral to outpatient counseling and recommendations to find daily self-care and relaxation strategies to decrease stress, anxiety, and depression. Discussed outpatient treatment options and pt was given a list of referrals to local MH providers including [facility] and [facility].
== END 2018-08-10 11:32 | disposition home or self-care (01) ==
LOC: ED 20:11 → PCU 22:07
PROVIDERS: Admitting Provider Family Medicine; Emergency Provider Emergency Medicine; Family Provider Family Medicine; PCP Family Medicine; Visit Provider Student in an Organized Health Care Education/Training Program
DX: G45.9 Transient cerebral ischemic attack, unspecified (principal); G43.909 Migraine, unspecified, not intractable, without status migrainosus; I10 Essential (primary) hypertension; F41.9 Anxiety disorder, unspecified; F32.9 Major depressive disorder, single episode, unspecified; E66.9 Obesity, unspecified; Z68.32 Body mass index [BMI] 32.0-32.9, adult; Z71.3 Dietary counseling and surveillance; Z79.899 Other long term (current) drug therapy; D50.9 Iron deficiency anemia, unspecified; R32 Unspecified urinary incontinence; Z91.14 Patient's other noncompliance with medication regimen; I69.311 Memory deficit following cerebral infarction; E78.5 Hyperlipidemia, unspecified
CPT/HCPCS: 36415; 70450; 70544; 70547; 70551; 71045; 80048; 80061; 82962; 83735; 84443; 84484; 85025; 85610; 85730; 92523; 93005; 93306; 96361; 96365; 96366; 96372; 96375; 96376; 97162; 97165; 97802; 99218; 99284; J7030; Q9957; A4216; G0378

== ENCOUNTER 2019-01-16 12:23 | Emergency (ER) | payer BC, SELFPAY ==
[2018-08-08 00:07] VITALS: BMI 32.3
[2019-01-16 12:24] VITALS: BP 200/105; BP 212/112; PULSE 91; RESP 18; TEMP 36.7; O2SAT 96; BMI 33.7
--- NOTE | 2019-01-16 13:02 | EKG12_ITS ---
Test Reason : CP Blood Pressure : / mmHG Vent. Rate : 089 BPM Atrial Rate : 089 BPM P-R Int : 144 ms QRS Dur : 104 ms QT Int : 360 ms P-R-T Axes : 049 012 015 degrees QTc Int : 438 ms Normal sinus rhythm Possible Left atrial enlargement Borderline ECG Confirmed by REINALDO SANTIAGO ([id number]), senior editor FIDEL BERMAN ([id number]) on 01/20/2019 10:55:29 AM Referred By: MARCOS/ALISHA Confirmed By:REINALDO SANTIAGO
--- NOTE | 2019-01-16 13:02 | CT_ITS ---
STUDY: CT BRAIN WITHOUT CONTRAST REASON FOR EXAM: Male, 58 years old. Headache with blurry vision and left-sided numbness RADIATION DOSAGE (If Supplied By Facility): CTDIvol = ( 44.99 ) mGy, DLP = ( 815.79 ) mGycm TECHNIQUE: Transaxial CT imaging of the brain was performed without administration of intravenous contrast material. Individualized dose optimization techniques were used for this CT. COMPARISON: 08/07/2018 FINDINGS: Normal soft tissue structures. Normal calvarium. There is mild cerebral atrophy with widening of the extra-axial spaces and ventricular dilatation. There are areas of decreased attenuation within the white matter tracts of the supratentorial brain, consistent with microvascular disease changes. Normal basal ganglia and thalami. Normal brainstem. There is mild cerebellar atrophy. Prior lacunar infarct in the left basal ganglia. There is no intracranial hemorrhage. There are no findings of an acute ischemic infarction. Normal visualized paranasal sinuses. CT/Brain/Head without Contrast IMPRESSION: Chronic involutional changes of the brain. Electronically Signed: Kirt Brumfield DO at 13:47 EDT Tel , Service support ,
[2019-01-16 13:21] LABS: Hematocrit 49.1 % (40-54); Hemoglobin 16.6 g/dl (13.0-16.5); Mean Corp Hgb Conc 33.8 g/gl (32-36); Mean Corpuscular Volume 82.9 fL (80-94); Mean Platelet Vol. 9.7 fl (6.2-12.0); Platelet Count 313 K/mm3 (150-450); RBC Distribution Width CV 15.3 % (11.6-14.6); RBC Distribution Width SD 46.3 fl (35.1-43.9); Red Blood Count 5.92 M/mm3 (4.6-6.2); Scan Indicated on CBC? Y/N NO; White Blood Count 9.4 K/mm3 (4.4-11.0)
[2019-01-16 13:25] VITALS: BP 187/113; PULSE 83; RESP 18; O2SAT 97
[2019-01-16 13:28] LABS: Anion Gap 3 (5-15); BUN 23 mg/dL (7-18); BUN/Creat Ratio 21.9 RATIO (10-20); Chloride 104 mmol/L (98-107); Creatinine, Serum 1.05 mg/dL (0.70-1.30); EST Glomerular Filtration Rate 77 mL/min (>60); Est Glom Filt Rate - Afr Amer 93 mL/min (>60); Estimated Creatinine Clearance 90.25 ml/min; Glucose 111 mg/dL (74-106); Potassium 4.4 mmol/L (3.5-5.1); Sodium Level 134 mmol/L (136-145)
[2019-01-16 14:48] VITALS: BP 192/108; PULSE 78; RESP 19
--- NOTE | 2019-01-16 14:58 | ED.VIS.GEN ---
History of Present Illness Chief Complaint: Chest Pain Detail of Chief Complaint: Headache, change in vision and numbness Informant: Patient Onset: Yesterday Context: - - Unknown Timing: Continuous Quality: Bifrontal head pain, blurred vision left numbness left upper extremity Location: Previously documented Current Severity: Mild Maximum Severity: Moderate Worsened by: Per patient has symptoms when blood pressure elevated Relieved by: Nothing Associated Symptoms: Previously documented Narrative: Patient presents because of headache, blurred vision left eye and numbness left upper extremity. He attributes this to his elevated blood pressure. He did not take his medication this morning. He is not able to tell me why he did not take his blood pressure meds. When asked to clarify regarding dizziness he does not describe vertiginous symptoms or problems with balance. He denies trouble with speech or swallowing. He denies cardiac or respiratory symptoms. He denies GI symptoms. He denies urologic symptoms. Prior similar symptoms: Yes Recent Illness/Hospitalization: No - Past Medical History (1) Migraine Status: Acute (2) TIA (transient ischemic attack) Status: Acute (3) Anxiety and depression Status: Chronic (4) Benign essential hypertension Status: Chronic (5) Chronic back pain Status: Chronic (6) Iron deficiency anemia Status: Chronic (7) Obesity (BMI 30.0-34.9) Status: Chronic (8) Sleep disorder breathing Status: Chronic Past Medical History - Allergies and Home Meds Allergies/Adverse Reactions: Allergies iohexol [From Omnipaque] Allergy (Verified 08/07/18 20:09) Rash Primary Care Physician: Billy De Santiago MD [Primary Care Provider] - Prior records reviewed: Yes Surgical History: appendectomy, - - Cervical fusion, prostate biopsy, BL TKR. Lives: Spouse/ Significant Other Smoking Status: Never smoker Alcohol: None - Family History Maternal Family History: Reports: - - His mother of a brain aneurysm, age 65 Paternal Family History: Reports: Cancer - Fathered with history of cancer, bone and lung, age 75 Review of Systems General: Denies: Chills, Fever, Subjective, Sweats Eyes: Denies: Visual changes - bilaterally, Blurred Vision - bilaterally, Diplopia ENT: Denies: Bilateral ear pain, Rhinorrhea, Sore throat Cardiovascular: Denies: Chest pain, Palpitations Respiratory: Denies: Dyspnea, Cough, Dyspnea on exertion Gastrointestinal: Denies: Abdominal pain, Nausea, Vomiting, Diarrhea, Melena, Hematochezia Genitourinary: Denies: Dysuria, Hematuria, Frequency Musculoskeletal: Denies: Back pain, Extremity Pain Skin: Denies: Rash, Wounds Neurological: Reports: Headache, Parasthesia. Denies: Weakness, Numbness, -, - Psych: Reports: Depression Hematologic: Denies: Easy bruising, Easy bleeding Allergy: Denies: Uticaria, Swelling of the mouth Physical Exam Vital Signs/Narrative: Vital Signs Temp Pulse Resp BP Pulse Ox 01/16/19 14:48 78 19 H 192/108 H 01/16/19 13:25 83 18 187/113 H 97 01/16/19 12:24 98.0 F 91 18 200/105 H 96 Inital Vital Signs reviewed: Yes General: Well nourished, Well developed, Obese, No Acute Distress Head: Normocephalic, Atraumatic Eyes: Perrl, EOMI. Negative for: Pale conjunctiva, Scleral icterus, - ENT: Moist mucous membranes, No rhinorrhea, TM's clear Neck: Supple, Nontender, No lymphadenopathy, No JVD, - Cardiovascular: Regular rate, Regular rhythm, No murmurs, Normal S1, Normal S2 Respiratory: No distress, CTA bilaterally, Chest nontender Abdomen: Soft, Nontender, Nondistended, Normal bowel sounds, No masses Extremities: Nontender, No edema Skin: Normal color, No rash. Negative for: Cyanosis, Jaundice Neurological: Alert, Oriented x3, Cranial nerves II-XII grossly intact, Normal Strength, Normal Sensation, Normal DTR, - - [id number] to finger performed well. Tandem gait normal. Psychological: Depressed Diagnostic/Tx/Re-eval - EKG Initial EKG Interpretation: Sinus Rhythm - Circular rate 89. DE interval, QT interval and axis are normal. QRS duration is 104 ms. There is evidence of left atrial enlargement. - Medical Decision Making With patient's symptoms and prior history of hypertensive urgency CT of the head was obtained to evaluate for intracranial bleed. None was noted. Blood work reveals no evidence of endorgan injury. EKG does not reveal evidence of LVH. Patient was administered 20 mill grams of labetalol. I was informed he was administered this medication approximately 15 to 30 minutes ago. Patient's had a 15% reduction in his systolic and diastolic blood pressure. He still reports headache but his vision and left upper extremity symptoms resolved. Patient was informed to continue taking his blood pressure medication and not to withhold his medication. He was instructed to follow-up with his primary care physician for repeat blood pressure check in 2 to 3 days. ED Disposition - Plan for ED Patient: Disposition: Home or Assisted Living Diagnosis: Accelerated hypertension Instructions: ED Hypertension Conf Out Of Control Referrals: Billy De Santiago MD [Primary Care Provider] - 3-5 Days
[2019-01-16 15:05] VITALS: BP 181/104; PULSE 71
[2019-01-16 15:32] VITALS: BP 172/103; PULSE 75; RESP 18; O2SAT 94
[2019-01-16] MEDS: Acetaminophen 325 MG Tablet 650 MG PO (15:55)
[2019-01-16 15:56] VITALS: BP 175/98; PULSE 71; RESP 18
== END 2019-01-16 16:12 | disposition home or self-care (01) ==
PROVIDERS: Emergency Provider Emergency Medicine; Family Provider Family Medicine; PCP Family Medicine
DX: I10 Essential (primary) hypertension (principal); F32.9 Major depressive disorder, single episode, unspecified; E66.9 Obesity, unspecified; G89.29 Other chronic pain; M54.9 Dorsalgia, unspecified; D50.9 Iron deficiency anemia, unspecified; F41.9 Anxiety disorder, unspecified; Z86.73 Personal history of transient ischemic attack (TIA), and cerebral infarction without residual deficits
CPT/HCPCS: 70450; 80048; 85027; 93005; 96374; 99285; A4216

== ENCOUNTER 2019-03-19 12:48 | Emergency (ER) | payer BC, SELFPAY ==
[2019-03-19 12:49] VITALS: BP 172/124; PULSE 83; RESP 16; TEMP 36.7; O2SAT 97; BMI 33.1
--- NOTE | 2019-03-19 13:08 | CT_ITS ---
STUDY: CT ABDOMEN AND PELVIS WITHOUT CONTRAST REASON FOR EXAM: Male, 58 years old. Left-sided abdominal pain RADIATION DOSAGE (If Supplied By Facility): CTDIvol = ( 14.79 ) mGy, DLP = ( 759.00 ) mGycm TECHNIQUE: Transaxial images were obtained from the dome of the diaphragm to the symphysis pubis without oral contrast, and without intravenous contrast. Sagittal and coronal images were reconstructed. Individualized dose optimization techniques were used for this CT. COMPARISON: CT 10/04/2015. FINDINGS: The visualized lung bases are unremarkable. The visualized portions of the heart are within normal limits. There is inhomogeneous hypodensity within the liver. Normal gallbladder and extrahepatic biliary system. Normal spleen. Normal pancreas. There is small hiatal hernia versus mild wall thickening of lower esophagus. Normal bilateral adrenal glands. Normal right kidney. There is a 2 mm left renal calculus. No hydronephrosis or ureteral calculi Normal visualized stomach. Normal small intestine. Normal colon. The appendix is visualized and appears normal. Normal abdominal aorta. Normal inferior vena cava. Normal retroperitoneum. Normal urinary bladder. There is enlargement of the prostate. Normal abdominal wall. There are multilevel Schmorl's nodes. There are bilateral fatty inguinal hernia. There is small anterior abdominal wall fatty hernia CT/Abdomen/Pelvis without Cont IMPRESSION: Inhomogeneous hypodensity within the liver suspicious for fatty infiltration versus infiltrative liver lesions. Further evaluation with CT IV contrast study would be recommended. 2 mm left renal calculus, no hydronephrosis or ureteral calculi Colonic diverticulosis no evidence for acute diverticulitis mild bladder wall thickening which may represent incomplete distention versus cystitis Prostate enlargement which should be correlated with PSA level Small anterior abdominal wall fatty hernia Multilevel Schmorl's nodes Bilateral fatty inguinal hernias Small hiatal hernia, wall thickening of the lower esophagus which may be secondary to esophagitis cannot exclude esophageal malignancy. Barium swallow or endoscopy is recommended to further evaluate Electronically Signed: Delfin Melchor, at 17:12 EDT Tel , Service support ,
[2019-03-19] MEDS: Morphine 4 MG/ML Syringe IV ×2 (13:16→15:22)
[2019-03-19] MEDS: 0.9% Normal Saline 1,000 ML 125 ML IV (13:16)
[2019-03-19] MEDS: Ketorolac 30 MG/ML Syringe IV (13:16)
[2019-03-19] MEDS: Ondansetron 4 MG/2 ML Vial IV (13:16)
[2019-03-19 13:40] LABS: Absolute Lymphocyte Count 2.74 X10^3/ul (0.83-4.51); Absolute Neutrophil Count 5.1 X10^3/uL (2.0-7.7); Basophil# 0.02 X10^3/uL; Basophil% 0.2 % (0-1); Eosinophil# 0.24 X10^3/uL; Eosinophils% 2.8 % (0-5); Hematocrit 46.7 % (40-54); Lymphocyte # 2.74 X10^3/ul (4.0); Lymphocyte % 31.5 % (19-41); Mean Corp Hgb Conc 34.3 g/gl (32-36); Mean Corpuscular Hgb 29.2 pg (27.0-32.0); Mean Corpuscular Volume 85.2 fL (80-94); Mean Platelet Vol. 9.8 fl (6.2-12.0); Monocyte# 0.64 X10^3/uL; Monocyte% 7.3 % (0-10); Neutrophil # 5.05 X10^3/uL (2.7-7.7); Platelet Count 280 K/mm3 (150-450); RBC Distribution Width CV 13.7 % (11.6-14.6); RBC Distribution Width SD 42.6 fl (35.1-43.9); Red Blood Count 5.48 M/mm3 (4.6-6.2); White Blood Count 8.7 K/mm3 (4.4-11.0)
[2019-03-19 13:41] LABS: Anion Gap 4 (5-15); BUN 16 mg/dL (7-18); BUN/Creat Ratio 19.5 RATIO (10-20); Calcium,Total 9.5 mg/dL (8.5-10.1); Chloride 103 mmol/L (98-107); Creatinine, Serum 0.82 mg/dL (0.70-1.30); EST Glomerular Filtration Rate 102 mL/min (>60); Est Glom Filt Rate - Afr Amer 124 mL/min (>60); Estimated Creatinine Clearance 115.56 ml/min; Glucose 113 mg/dL (74-106); Potassium 4.1 mmol/L (3.5-5.1); Sodium Level 135 mmol/L (136-145)
[2019-03-19 13:49] LABS: POSITIVE COUNT NO; POSITIVE DIFFERENTIAL NO; POSITIVE MORPHOLOGY NO
[2019-03-19 13:51] LABS: Bacteria 0 SEEN /hpf (None Seen); Mucous, Urine 0 SEEN /hpf (<or=2+); Red Blood Cells-Urine 0 SEEN /hpf (0-5); Squamous Epithelial Cells - UA 0 SEEN /hpf (0-5); White Blood Cells 0 SEEN /hpf (0-5)
[2019-03-19 13:53] LABS: Color, Urine Yellow (Yellow); Glucose, Dipstick Normal (Normal); Ketone-Dipstick Negative (Negative); Leukocyte Esterase-Dipstick Negative /ul (Negative); Nitrite-Dipstick Negative (Negative); Occult Blood-Urine Negative /ul (Negative); Protein-Dipstick 15 mg/dl (Negative); Specific Gravity, Urine 1.015 (1.002-1.030); Urine Bilirubin Dipstick Negative (Negative); Urine Clarity Clear (Clear); Urine Urobilinogen Normal (Normal)
[2019-03-19 15:00] VITALS: PULSE 82; RESP 16
--- NOTE | 2019-03-19 17:29 | ED.DCSUM_ITS ---
- ER Visit Summary Date of Service: 03/19/19 Chief Complaint: [Flank pain] History of Present Illness: The patient is a 58 M [presents the emergency department with left-sided flank pain that started about 3 days ago. Patient states the pain is been continuous and he rates it an 8 out of 10. He has had nausea with it but no vomiting. He denies urinary symptoms. He denies any fever. Patient states the pain came on rather suddenly. Patient states that the pain comes from the back and radiates to the front of the abdomen and pelvis. Patient denies any injury to his back. He has not had discomfort like this before. He denies any testicular pain.] Physical Examination: [HEENT-PERRLA, EOMI. Cranial nerves II through XII grossly intact. TMs clear. Mucous membranes moist. No adenopathy. Cardiovascular-regular rate and rhythm without murmur or ectopy Lungs-clear to auscultation, chest wall stable without crepitus or subcu emphysema Abdomen-normoactive bowel sounds, soft. Patient has tenderness palpation over left lower quadrant with some guarding. There is no rebound, rigidity, cranial signs. Patient does have CVA tenderness on the left. Back exam-has tenderness over the lumbar paraspinal muscular trip. Patient has negative straight leg raises. Deep tendon reflexes are plus 2 out of 4 bilaterally at the patella and Achilles. Patient has normal 5 extension. Extremities-intact ?4, normal range of motion, normal pulses, atraumatic] Test Results: [CBC with differential obtained was normal. Chemistries were normal. Urinalysis was normal. CT flank showed prostate enlargement as well as bilateral inguinal hernias containing fat. Patient had a hiatal hernia with some thickening of the esophagus which could be esophagitis versus cannot rule out mass. Patient also was noted to have some infiltrated lesions of the liver which may be fatty infiltration but recommended having a CT with IV contrast at some point to further evaluate.] Emergency Department Course and Treatment: [Patient was medicated with Toradol, morphine, and Zofran. Patient had to be remedicated with morphine for continued pain.] Treatment Plan: [Patient will be given a prescription for [facility] for home and referral to general surgery on-call Dr. Raffaele Nam for follow-up if symptoms persist. Patient is aware that he needs to follow-up with primary care physician regarding the CT with IV contrast that can be done as an outpatient as well as he will need to follow-up to have an EGD performed.] Disposition: [Discharged to home stable condition.] Impression: [Abdominal pain pain-etiology uncertain] Back pain This note was generated with [employer] dictation software. It may contain incorrect words, spelling, and punctuation that were not noted in review of the chart prior to signing ED Disposition - Plan for ED Patient: Referrals: Billy De Santiago MD [Primary Care Provider] -
--- NOTE | 2019-03-19 17:34 | DCINST.ED_ITS ---
ED Disposition - Plan for ED Patient: Instructions: FLANK PAIN, Uncertain Cause Prescriptions: Hydrocodone Bitart/Apap 5-325 [[facility] 5MG-325MG] 1 tab PO Q4H PRN PRN 2 Days #15 tab PRN Reason: Pain Prescription Printed Referrals: Billy De Santiago MD [Primary Care Provider] - 3-5 Days Raffaele Jensen MD [STAFF PHYSICIAN] - 3-5 Days
[2019-03-19 17:44] VITALS: BP 188/112; PULSE 64; RESP 16
== END 2019-03-19 17:49 | disposition home or self-care (01) ==
LOC: ED 13:33
PROVIDERS: Emergency Provider Emergency Medicine; Family Provider Family Medicine; PCP Family Medicine
DX: R10.9 Unspecified abdominal pain (principal); M54.9 Dorsalgia, unspecified; N40.0 Benign prostatic hyperplasia without lower urinary tract symptoms; K40.20 Bilateral inguinal hernia, without obstruction or gangrene, not specified as recurrent; I10 Essential (primary) hypertension; Z86.73 Personal history of transient ischemic attack (TIA), and cerebral infarction without residual deficits; Z86.718 Personal history of other venous thrombosis and embolism
CPT/HCPCS: 74176; 80048; 81001; 85025; 96361; 96374; 96375; 96376; 99283; J7030; J2405

== ENCOUNTER 2019-04-09 07:54 | Inpatient (IN) | payer BC, SELFPAY ==
[2019-04-09] VITALS (20 sets, daily range): BP systolic 125–197; BP diastolic 10–120; PULSE 69–89; RESP 16–22; TEMP 36.5–37; O2SAT 94–98; BMI 28.2; BMI 33.0
--- NOTE | 2019-04-09 08:12 | ED.RN ---
PT APPEARS TO NOT BE ABLE TO COMPREHEND COMMANDS IMMEDIATELY. DELAYED REACTION TO COMMANDS. MEMORY WAS IMPAIRED BY PREVIOUS CVA, WELL IMPAIRED TO RT ARM PER .
[2019-04-09 08:16] LABS: Bedside Glucose 138 mg/dL (70-110)
--- NOTE | 2019-04-09 08:18 | CT_ITS ---
STUDY: CT BRAIN WITHOUT CONTRAST REASON FOR EXAM: Male, 58 years old. FOUND ON BATHROOM FLOOR, CONFUSION, HX TIA. RADIATION DOSAGE (If Supplied By Facility): CTDIvol = ( 44.99 ) mGy, DLP = ( 812.98 ) mGycm TECHNIQUE: Transaxial CT imaging of the brain was performed without administration of intravenous contrast material. Individualized dose optimization techniques were used for this CT. COMPARISON: January 16, 2019 FINDINGS: Normal size ventricles and extra-axial spaces for the patient's age. Normal white matter tracts of the cerebral hemispheres. Again noted is the left basal ganglia chronic infarct. Normal brainstem. Normal cerebellum. There is no intracranial hemorrhage. There are no findings of an acute ischemic infarction. CT/Brain/Head without Contrast IMPRESSION: No acute intracranial abnormality. Chronic left basal ganglia infarct. Electronically Signed: Carlota Rivas MD at 8:37 EDT Tel , Service support ,
--- NOTE | 2019-04-09 08:18 | RAD_ITS ---
STUDY: X-RAY CHEST REASON FOR EXAM: Male, 58 years old. Confused. TECHNIQUE: Single AP portable view of the chest. COMPARISON: 07 August 2018 FINDINGS: The lungs are clear and expanded. There is no demonstrated pleural abnormality. Normal size heart. Normal mediastinum and dain. Normal visualized pulmonary arteries. Normal visualized aortic arch and descending thoracic aorta. Normal visualized thoracic spine. Normal visualized ribs, clavicles, and shoulders. There is no demonstrated abnormality of the visualized soft tissue structures of the upper abdomen. RAD/Chest 1 View IMPRESSION: No evidence of acute cardiopulmonary process. Electronically Signed: Juan M Field DO at 8:58 EDT , Service support ,
--- NOTE | 2019-04-09 08:18 | EKG12_ITS ---
Test Reason : SYNCOPE Blood Pressure : / mmHG Vent. Rate : 076 BPM Atrial Rate : 076 BPM P-R Int : 154 ms QRS Dur : 112 ms QT Int : 384 ms P-R-T Axes : 042 016 022 degrees QTc Int : 432 ms Normal sinus rhythm Possible Left atrial enlargement Borderline ECG Confirmed by ZEUS SHELBY, DANNY ([id number]), development editor FIDEL BERMAN ([id number]) on 04/12/2019 10:37:26 AM Referred By: BB Confirmed By:DANNY SCHULZ MD
--- NOTE | 2019-04-09 08:20 | ED.DCSUM_ITS ---
History of Present Illness Chief Complaint: Fall Informant: Family Narrative: Patient is confused this morning. heard a crash apparently as he was getting out of bed he fell and hit his head on a nearby nightstand. He slept all day yesterday, getting up once to eat something, but did not talk to him, and the last time she had a conversation with him that he was normal and at baseline was the day/night before yesterday. He had a stroke about a year and a half ago that left him with some right arm deficits and some memory issues. He has had no other recent illnesses except for some lower abdominal discomfort that he was seen in the ER several weeks ago and thought to have large prostate, states he urinates very frequently since then, but she does not know details of all of those symptoms. - Past Medical History (1) Migraine Status: Chronic (2) TIA (transient ischemic attack) Status: Chronic (3) Anxiety and depression Status: Chronic (4) Benign essential hypertension Status: Chronic (5) CVA (cerebral vascular accident) Status: Chronic (6) Chronic back pain Status: Chronic (7) Iron deficiency anemia Status: Chronic (8) Sleep disorder breathing Status: Chronic Past Medical History - Allergies and Home Meds Allergies/Adverse Reactions: Allergies iohexol [From Omnipaque] Allergy (Verified 04/09/19 07:54) Rash Primary Care Physician: Billy De Santiago MD [Primary Care Provider] - Surgical History: appendectomy, - - Cervical fusion, prostate biopsy, BL TKR. Lives: Spouse/ Significant Other Smoking Status: Never smoker - Family History Maternal Family History: Reports: - - His mother of a brain aneurysm, age 65 Paternal Family History: Reports: Cancer - Fathered with history of cancer, bone and lung, age 75 Review of Systems ROS: Unable to Obtain Physical Exam Vital Signs/Narrative: Vital Signs Temp Pulse Resp BP Pulse Ox 04/09/19 07:55 98.6 F 83 17 189/120 H 95 Inital Vital Signs reviewed: Yes General: Well nourished, Well developed, No Acute Distress Head: Normocephalic, Atraumatic Eyes: Perrl, EOMI - Very limited exam, patient has trouble following commands but eventually is able to move his eyes in all directions ENT: Moist mucous membranes, No rhinorrhea, TM's clear - No hemotympanum, - - No midface trauma or tenderness Neck: Supple, Nontender, - - No carotid bruits bilaterally Cardiovascular: Regular rate, Regular rhythm, No murmurs Respiratory: No distress, CTA bilaterally, Chest nontender Abdomen: Soft, Nontender, Nondistended, Normal bowel sounds Back: Nontender, Normal Inspection Extremities: Nontender, No edema Skin: Normal color, No rash Neurological: Alert - But somnolent; eyes open to voice. Does follow commands. Very confused and not able to carry conversation. GCS 3/6/4 equals 13., Oriented x3, Cranial nerves II-XII grossly intact, Normal Sensation, Weakness - Can hold both arms up without drift, but both legs at the bed and both move, symmetrically. Not able to perform cerebellar exam. See NIHSS. Psychological: Normal affect, Normal Mood Diagnostic/Tx/Re-eval NIH Stroke Scale/Score (NIHSS) from [employer] on 04/09/2019 0815 All calculations should be rechecked by clinician prior to use RESULT SUMMARY: 6 points NIH Stroke Scale INPUTS: 1A: Level of consciousness ?> 1 = Arouses to minor stimulation 1B: Ask month and age ?> 0 = Both questions right 1C: 'Blink eyes' & 'squeeze hands' ?> 0 = Performs both tasks 2: Horizontal extraocular movements ?> 0 = Normal 3: Visual wade ?> 0 = No visual loss 4: Facial palsy ?> 0 = Normal symmetry 5A: Left arm motor drift ?> 0 = No drift for 10 seconds 5B: Right arm motor drift ?> 0 = No drift for 10 seconds 6A: Left leg motor drift ?> 2 = Some effort against gravity 6B: Right leg motor drift ?> 2 = Some effort against gravity 7: Limb Ataxia ?> 0 = No ataxia 8: Sensation ?> 0 = Normal; no sensory loss 9: Language/aphasia ?> 1 = Mild-moderate aphasia: some obvious changes, without significant limitation 10: Dysarthria ?> 0 = Normal 11: Extinction/inattention ?> 0 = No abnormality Impressions Brain CT 04/09/19 08:18 IMPRESSION: No acute intracranial abnormality. Chronic left basal ganglia infarct. Electronically Signed: Carlota Rivas MD at 8:37 EDT Tel , Service support , Chest X-Ray 04/09/19 08:18 IMPRESSION: No evidence of acute cardiopulmonary process. Electronically Signed: Juan M Field at 8:58 EDT , Service support , Head/Neck CTA 04/09/19 09:00 IMPRESSION: No evidence of significant steno-occlusive disease or aneurysm. Electronically Signed: Juan M FieldDO at 10:26 EDT , Service support , 04/09/19 08:18 Brain/Head without Contrast [CT] Stat Chest 1 View [RAD] Stat 04/09/19 09:00 CTA Head AND Neck W/ Contrast [CT] Stat Laboratory Results 04/09/19 04/09/19 04/09/19 08:10 08:11 08:11 WBC 9.5 RBC 5.89 Hgb 16.7 H Hct 51.0 MCV 86.6 MCH 28.4 MCHC 32.7 RDW Std Deviation 41.6 RDW Coeff of Melanie 13.1 Plt Count 290 MPV 9.6 Immature Gran % (Auto) 0.600 Neut % (Auto) 63.7 Lymph % (Auto) 26.3 Sevier % (Auto) 6.8 Eos % (Auto) 2.3 Baso % (Auto) 0.3 Absolute Neuts (auto) 6.0 Absolute Lymphs (auto) 2.49 Absolute Nucleated RBC 0.00 Nucleated RBC % 0 PT 14.6 INR 1.2 APTT 28.5 Sodium Potassium Chloride Carbon Dioxide Anion Gap BUN Creatinine Estim Creat Clear Calc Est GFR (MDRD) Af Amer Est GFR (MDRD) Non-Af BUN/Creatinine Ratio Glucose Calcium Total Bilirubin AST ALT Alkaline Phosphatase Troponin I Total Protein Albumin Globulin Albumin/Globulin Ratio POC Glucose 138 H 04/09/19 08:11 WBC RBC Hgb Hct MCV MCH MCHC RDW Std Deviation RDW Coeff of Melanie Plt Count MPV Immature Gran % (Auto) Neut % (Auto) Lymph % (Auto) Sevier % (Auto) Eos % (Auto) Baso % (Auto) Absolute Neuts (auto) Absolute Lymphs (auto) Absolute Nucleated RBC Nucleated RBC % PT INR APTT Sodium 140 Potassium 4.3 Chloride 104 Carbon Dioxide 26.0 Anion Gap 10 BUN 17 Creatinine 0.94 Estim Creat Clear Calc 100.81 Est GFR (MDRD) Af Amer 107 Est GFR (MDRD) Non-Af 88 BUN/Creatinine Ratio 18.2 Glucose 121 H Calcium 8.8 Total Bilirubin 0.60 AST 17 ALT 39 Alkaline Phosphatase 118 H Troponin I < 0.015 Total Protein 7.6 Albumin 3.6 Globulin 4.0 Albumin/Globulin Ratio 0.9 POC Glucose - Medical Decision Making Unknown when the patient became confused, if it was after hitting his head this morning or if it was before today, as really did not interact with them yesterday, she states that he basically slept all day. Therefore he was out of the 24-hour window for emergent treatment for LVO, so stroke team was not called or indicated. Plain CT of the head showed nothing acute, he was sent back for CT angiography later, it showed no acute abnormality. The rest of his evaluation is unremarkable. His blood pressure remains very high. I would consider him potentially hypertensive encephalopathy until proven otherwise, starting him on Cardene, admit to PCU. Discussed with Dr. Abraham - Critical Care Time Critical care time (excluding procedures): 30-74 minutes, Including time spent:, Discussing w/Patient &/or Family/Community Board Member, Discussing w/Consultants, Arranging Admission or Transfer, Performing Direct Patient Care at Bedside ED Disposition - Plan for ED Patient: Disposition: Acute Care Hospital [facility] Diagnosis: Altered mental status, unspecified, Hypertensive emergency Referrals: Billy De Santiago MD [Primary Care Provider] -
[2019-04-09 08:29] LABS: Absolute Lymphocyte Count 2.49 X10^3/uL (0.83-4.51); Basophil# 0.03 X10^3/uL; Basophil% 0.3 % (0-1); Eosinophil# 0.22 X10^3/uL; Eosinophils% 2.3 % (0-5); Hemoglobin 16.7 g/dL (13.0-16.5); Lymphocyte # 2.49 X10^3/ul (4.0); Lymphocyte % 26.3 % (19-41); Mean Corp Hgb Conc 32.7 g/dL (32-36); Mean Corpuscular Hgb 28.4 pg (27.0-32.0); Mean Corpuscular Volume 86.6 fL (80-94); Mean Platelet Vol. 9.6 fl (6.2-12.0); Monocyte# 0.64 X10^3/uL; Monocyte% 6.8 % (0-10); NRBC Flagged by Analyzer 0 % (0-5); Neutrophil # 6.04 X10^3/uL (2.7-7.7); Neutrophil % 63.7 % (47-70); Platelet Count 290 K/mm3 (150-450); RBC Distribution Width CV 13.1 % (11.6-14.6); RBC Distribution Width SD 41.6 fl (35.1-43.9); Red Blood Count 5.89 M/mm3 (4.6-6.2); White Blood Count 9.5 K/mm3 (4.4-11.0)
--- NOTE | 2019-04-09 08:30 | ED.RN ---
PT WAS ABLE TO MOVE TO THE CT BED AND BACK TO ED CART BY HIMSELF. PT IS BECOMING MORE VERBAL, TOLD RADIOLOGY STAFF THANK YOU AFTER CHEST XRAY.
[2019-04-09 08:37] LABS: International Normalized Ratio 1.2; Prothrombin Time (Protime)PT. 14.6 SECONDS (11.7-14.9)
[2019-04-09 08:38] LABS: Partial Thromboplast Time 28.5 Seconds (24.1-36.2)
[2019-04-09 08:55] LABS: ALB/GLOB Ratio 0.9 RATIO (0.9-2.4); AST(SGOT) 17 U/L (15-37); Alanine Aminotransfer ALT/SGPT 39 U/L (16-61); Albumin, Serum 3.6 g/dL (3.2-5.0); Alkaline Phosphatase 118 U/L (45-117); Anion Gap 10 (5-15); BUN 17 mg/dL (7-18); BUN/Creat Ratio 18.2 RATIO (10-20); Calcium,Total 8.8 mg/dL (8.5-10.1); Chloride 104 mmol/L (98-107); Creatinine, Serum 0.94 mg/dL (0.70-1.30); EST Glomerular Filtration Rate 88 mL/min (>60); Est Glom Filt Rate - Afr Amer 107 mL/min (>60); Estimated Creatinine Clearance 100.81 ml/min; Glucose 121 mg/dL (74-106); Potassium 4.3 mmol/L (3.5-5.1); Protein, Total 7.6 g/dL (6.4-8.2); Sodium Level 140 mmol/L (136-145)
--- NOTE | 2019-04-09 09:00 | CT_ITS ---
STUDY: CTA HEAD AND NECK WITH CONTRAST REASON FOR EXAM: Male, 58 years old. Aphasia, found in the bathroom floor with confusion. RADIATION DOSAGE (If Supplied By Facility): CTDIvol = ( 27.11 ) mGy, DLP = ( 873.55 ) mGycm TECHNIQUE: CT angiography was performed with a multi-detector CT scanner. Data acquisition was obtained from the skull base through the vertex following intravenous administration of 100 IV Isovue 370. MIP images were reconstructed from the axial data set. Post-processing of the angiographic images was performed, with multiplanar reformation and 3D reconstruction. Individualized dose optimization techniques were used for this CT. COMPARISON: No relevant priors. FINDINGS: Normal bilateral petrous carotid arteries. Normal right cavernous carotid artery with a normal supraclinoid bifurcation. Normal left cavernous carotid artery with a normal supraclinoid bifurcation. Normal right A1 segments of the anterior cerebral artery. Normal left A1 segments of the anterior cerebral artery. Normal intact anterior communicating artery (ACOM). Normal bilateral A2 segments of the anterior cerebral arteries. Normal right M1 and M2 segments of the middle cerebral arteries, with a normal M1 bifurcation. Normal left M1 and M2 segments of the middle cerebral arteries, with a normal M1 bifurcation. Normal right posterior communicating artery (PCOM). Normal left posterior communicating artery (PCOM). Normal bilateral vertebral arteries. Normal basilar artery with a normal basilar bifurcation. The visualized bilateral superior cerebellar (SCA) arteries are normal. Normal bilateral P1, P2 and visualized P3 segments of the posterior cerebral arteries. There is no demonstrated aneurysm of the [place]. There is no demonstrated abnormality of the visualized brain. AORTIC ARCH: Normal visualized aortic arch. Normal origins of the brachiocephalic, left common carotid, and left subclavian arteries. RIGHT CAROTID ARTERIES: Normal right common carotid artery (CCA). Normal right common carotid bulb. Normal origin of the right internal carotid (ICA) artery without a hemodynamically significant stenosis. Normal visualized cervical portion of the right internal carotid artery. Normal origin of the right external carotid artery (ECA). LEFT CAROTID ARTERIES: Normal left common carotid artery (CCA). Normal left common carotid bulb. Normal origin of the left internal carotid (ICA) artery without a hemodynamically significant stenosis. Normal visualized cervical portion of the left internal carotid artery. Normal origin of the left external carotid artery (ECA). VERTEBRAL ARTERIES: Normal bilateral vertebral arteries. CT/CTA Head AND Neck W/ Contrast IMPRESSION: No evidence of significant steno-occlusive disease or aneurysm. Electronically Signed: Juan M Field DO at 10:26 EDT , Service support ,
[2019-04-09] MEDS: MethylPREDNISolone 125 MG/2 ML Vial IV (09:07)
[2019-04-09] MEDS: DiphenhydrAMINE 50 MG/ML Syringe 25 MG IV (09:07)
--- NOTE | 2019-04-09 11:49 | HP.PCM_ITS ---
Problem List (1) Altered mental status, unspecified Status: Acute Qualifiers: Altered mental status type: unspecified Qualified Code(s): R41.82 - Altered mental status, unspecified (2) Anxiety and depression Status: Chronic (3) Benign essential hypertension Status: Chronic (4) CVA (cerebral vascular accident) Status: Chronic Qualifiers: CVA mechanism: unspecified Qualified Code(s): I63.9 - Cerebral infarction, unspecified (5) Chronic back pain Status: Chronic Qualifiers: Back pain location: back pain in unspecified location Back pain laterality: unspecified Qualified Code(s): M54.9 - Dorsalgia, unspecified; G89.29 - Other chronic pain (6) Syncope Status: Acute Qualifiers: Syncope type: unspecified Qualified Code(s): R55 - Syncope and collapse History of Present Illness Date of Admission: 04/09/19 Chief Complaint: Syncope, altered mental status - 1 day The patient is a 58 year old M with PMHx of Hypertension, migraine headaches, h/o TIA who was in his usual state of health until 2 days ago when he started feeling generally unwell. He spent the whole day lying in bed yesterday. He denied any fever or chills or diarrhea. He complains of left lower abdominal discomfort. He was seen in the emergency department on 03/19/[address] of the abdomen/pelvis did not show any acute emergent findings. He woke up this morning, as he was getting ready to go to work, his heard a fall, found him in the bathroom, unconscious. She is unsure if he fell and hit his head on a nearby nightstand. He regained consciousness. He had since then been confused and not himself. Patient admits to frequency and strangury. His says he has history of enlarged prostate. His vitals in the ED show temperature 98.6 F, heart rate 83, blood pressure 189/120, respiratory rate is 70, SPO2 is 95% on room air. His admitting blood work was unremarkable CT scan of the head showed no acute intracranial abnormality, chronic left basal ganglia infarct. CT of the head and neck was negative. NIHSS in ED was 6. Past Medical History Past Medical History (Chronic Problems): Chronic Problems Thrombocytosis (Chronic) Iron deficiency anemia (Chronic) Anxiety and depression (Chronic) Chronic back pain (Chronic) TIA (transient ischemic attack) (Chronic) Migraine (Chronic) Sleep disorder breathing (Chronic) CVA (cerebral vascular accident) (Chronic) Depression (Chronic) Benign essential hypertension (Chronic) Low back pain (Chronic) Urinary incontinence (Chronic) Obesity (BMI 30.0-34.9) (Chronic) Elevated PSA (Chronic) recent biopsies done by DR. Monk are negative Allergies iohexol [From Omnipaque] Allergy (Verified 04/09/19 07:54) Rash Home Medications: Ambulatory Orders Medication Instructions Recorded Citalopram Hydrobromide 40 mg PO DAILY 07/05/16 [Citalopram HBr] Amlodipine [Norvasc] 10 mg PO DAILY 12/29/17 Zolpidem Tartrate [Ambien] 10 mg PO QHS 04/27/18 Lisinopril [Zestril] 40 mg PO DAILY 08/08/18 Acetaminophen [Tylenol Tablet] 650 mg PO Q4H PRN PRN #30 tablet 08/10/18 Metoprolol Tartrate [Lopressor 50 mg PO BID #60 tablet 08/10/18 (beta lorenzo)] Surgical History: appendectomy, - - Cervical fusion, prostate biopsy, BL TKR. Psychiatric History: Depression - does not take his medication routinely Lives: Spouse/ Significant Other Smoking Status: Never smoker - *Family History Maternal History Items: - - His mother of a brain aneurysm, age 65 Paternal History Items: Cancer - Fathered with history of cancer, bone and lung, age 75 Review of Systems Constitutional: Reports: Anorexia, Malaise, Weakness, Fatigue. Denies: Chills, Fever, Night Sweats, Weight Change Eyes: Denies: Blurred vision, Cataracts, Conjunctivae Inflammation, Double vision, Pain, Redness, Vision Change HEENT: Denies: Difficulty Hearing, Difficulty Swallowing, Head Aches, Hearing Changes, Nasal Congestion, Post Nasal Drip, Sinus Congestion, Sinus Drainage Cardiovascular: Denies: Chest Pain, Claudication, Chest Pressure, Palpitations Respiratory: Denies: Cough, Hemoptysis, Shortness of breath at rest, Sputum production Gastrointestinal: Reports: Abdominal Pain. Denies: Hematemesis, Hematochezia, Nausea, Vomiting Genitourinary: Denies: Dysuria, Frequency Musculoskeletal: Denies: Joint Pain, Joint stiffness, Joint swelling, Joint Tend erness Skin: Denies: Rash, Wounds Neurological: Denies: Numbness, Tingling, Focal weakness Psychiatric: Denies: Anxiety, Depression, Homicidal Ideations, Suicidal Ideations Hematologic/ Lymphatic: Denies: Easy Bruising, Easy Bleeding VTE Information - Inpt Only VTE Present on Admission: No VTE Pharm Prophylaxis ordered?: Yes Patient Problems: Active and Suspected Problems Altered mental status, unspecified (Acute) Hypertensive emergency (Acute) Syncope (Acute) - Physical Exam General: Alert, Oriented x3, Cooperative, - - looks unwell, takes time to answer, appears unhappy HEENT: Atraumatic, PERRLA, EOMI, Normocephalic Oral: Moist Mucosa Neck: Supple Lungs: Clear to auscultation, Normal air movement Cardiovascular: Regular rate, Regular Rhythm, Normal S1, Normal S2, No murmurs Abdomen: Bowel Sounds Present, Soft, Non-Distended, No Hepato-splenomegaly, Tender - over the LLQ with guarding, no RBT Extremities: No edema Skin: No rashes, No breakdown Musculoskeletal: No Tenderness to Palpation of Joints or Extremities Lymphatic: No Cervical, Supraclavicular, or Inguinal Adenopathy Neurological: Cranial nerves II-XII grossly intact, Neuro grossly intact, - - flat Psych/Mental Status: Normal Affect, Appropriate Vital Signs Temp Pulse Resp BP Pulse Ox 98.6 F 69 20 H 195/115 H 95 04/09/19 07:55 04/09/19 10:30 04/09/19 10:30 04/09/19 11:00 04/09/19 10:00 Oxygen Flow Rate (L/min) 97 Oxygen Delivery Method Room Air Weight: 99.79 kg Body Mass Index (BMI) 28.2 Finger Stick Blood Glucose 138 Laboratory Tests Past 24 Hrs 04/09/19 04/09/19 04/09/19 08:11 08:11 08:11 WBC 9.5 RBC 5.89 Hgb 16.7 H Hct 51.0 MCV 86.6 MCH 28.4 MCHC 32.7 RDW Std Deviation 41.6 RDW Coeff of Melanie 13.1 Plt Count 290 MPV 9.6 Immature Gran % (Auto) 0.600 Neut % (Auto) 63.7 Lymph % (Auto) 26.3 Foard % (Auto) 6.8 Eos % (Auto) 2.3 Baso % (Auto) 0.3 Absolute Neuts (auto) 6.0 Absolute Lymphs (auto) 2.49 Absolute Nucleated RBC 0.00 Nucleated RBC % 0 PT 14.6 INR 1.2 APTT 28.5 Sodium 140 Potassium 4.3 Chloride 104 Carbon Dioxide 26.0 Anion Gap 10 BUN 17 Creatinine 0.94 Estim Creat Clear Calc 100.81 Est GFR (MDRD) Af Amer 107 Est GFR (MDRD) Non-Af 88 BUN/Creatinine Ratio 18.2 Glucose 121 H Calcium 8.8 Total Bilirubin 0.60 AST 17 ALT 39 Alkaline Phosphatase 118 H Troponin I < 0.015 Total Protein 7.6 Albumin 3.6 Globulin 4.0 Albumin/Globulin Ratio 0.9 POC Glucose 04/09/19 08:10 POC Glucose 138 H Assessment/Plan All Active Problems DVT prophylaxis (Acute) Altered mental status, unspecified (Acute) Hypertensive emergency (Acute) Syncope (Acute) Noncompliance with medication regimen (Acute) Hypertensive urgency (Acute) LALITA (acute kidney injury) (Ruled-out) Headache (Acute) 58 year old M with PMHx of Hypertension, migraine headaches, h/o TIA who was in his usual state of health until 2 days ago when he started feeling generally unwell. 1. Altered mental status, unclear etiology for now, h/o TIA, chronic migraine, will need to rule out acute stroke Initial CT of the head, CTA of the head and neck is negative Plan: Admit to PCU, monitor on telemetry, MRI brain, neurology consult, continue on home meds 2. Syncope, likely vasovagal from abdominal pain, will work up as #1 3. Abdominal pain, unclear etiology, CT scan on abd/pelvis is unchanged from 03/19/19 4 Accelerated hypertension/Hypertensive urgency, patient complains of headaches. Continue home metoprolol, Lisinopril, amlodipine, prn hydralazine 5 Chronic migraine, will monitor 6. Anxiety/depression, continue home Celexa 7. DVT PPx - Lovenox SC Code Visit Inpatient E&M: 27209 Init Hosp L3
[2019-04-09] MEDS: Morphine 2 MG/ML Syringe IV ×4 (12:09→21:57)
--- NOTE | 2019-04-09 12:53 | ECHOD_ITS ---
Reason For Study: TIA/CVA Procedure This was a 2D Doppler, Color Flow transthoracic echocardiogram. Exam performed portable in patient room. Left Ventricle Normal LV size. Left ventricular systolic function is normal. The estimated ejection fraction is 60 %. Stage 2 diastolic dysfunction. No regional wall motion abnormalities noted. Right Ventricle Normal RV size. Normal systolic function. Atria Normal left atrium. Normal right atrium. Mitral Valve Normal mitral valve. Tricuspid Valve Normal tricuspid valve. Mild (1+) tricuspid valve insufficiency. Pulmonary artery systolic pressure is 32 mmHg. Aortic Valve Normal aortic valve. Pulmonic Valve Normal pulmonic valve. Great Vessels Normal aortic root. The pulmonary artery is normal size. Normal inferior vena cava. Pericardium/Pleural No pericardial effusion. MMode/2D Measurements & Calculations LVIDd: 5.2 cm IVSd: 1.3 cm Ao root diam: 3.4 cm LVIDs: 3.5 cm LVPWd: 1.2 cm RVDd: 3.6 cm FS: 33.5 % LAV(MOD-bp): 45.3 ml LVAd ap4: 34.8 cm2 SV(MOD-sp4): 64.3 ml LAV(MOD-bp) Indexed: 18.7 ml/m2 EDV(MOD-sp4): 111.2 ml LAV(MOD-sp2): 43.4 ml EDV(sp4-el): 111.4 ml LAV(MOD-sp4): 45.5 ml LVAs ap4: 20.0 cm2 ESV(MOD-sp4): 46.9 ml ESV(sp4-el): 47.2 ml EF(MOD-sp4): 57.8 % EF(sp4-el): 57.7 % SV(sp4-el): 64.3 ml LA A4 area: 17.6 cm2 LA dimension(2D): 3.7 cm RA A4 area: 13.8 cm2 Doppler Measurements & Calculations MV E max td: 100.2 cm/sec Lat Peak E' Td: 9.2 cm/sec Med Peak E' Td: 7.7 cm/sec MV A max td: 80.3 cm/sec E/E' lat: 10.9 E/E' med: 13.0 MV E/A: 1.2 Ao V2 max: 152.1 cm/sec LV V1 max: 94.4 cm/sec PA V2 max: 105.9 cm/sec Ao max P.2 mmHg LV V1 max P.6 mmHg Ao V2 mean: 108.6 cm/sec Ao mean P.2 mmHg Ao V2 VTI: 33.9 cm PI end-d td: 89.6 cm/sec TR max td: 263.3 cm/sec TR max P.7 mmHg Interpretation Summary Normal LV size. Left ventricular systolic function is normal. The estimated ejection fraction is 60 %. Stage 2 diastolic dysfunction. Mild (1+) tricuspid valve insufficiency. Ordering Physician: Evonne Abraham Referring Physician: Billy De Santiago Performed By: Veronique Ayala, GORDY, RVT
--- NOTE | 2019-04-09 12:53 | CT_ITS ---
STUDY: CT ABDOMEN AND PELVIS WITHOUT CONTRAST REASON FOR EXAM: Male, 58 years old. Low abdominal pain RADIATION DOSAGE (If Supplied By Facility): CTDIvol = ( 22.03 ) mGy, DLP = ( 1221.92 ) mGycm TECHNIQUE: Transaxial images were obtained from the dome of the diaphragm to the symphysis pubis without oral contrast, and without intravenous contrast. Sagittal and coronal images were reconstructed. Individualized dose optimization techniques were used for this CT. COMPARISON: March 19, 2019 CT scan abdomen and pelvis FINDINGS: There is minimal lower lobe atelectasis. The visualized portions of the heart are within normal limits. The liver is fatty infiltrated with sparing. Normal gallbladder and extrahepatic biliary system. Normal spleen. Normal pancreas. Normal bilateral adrenal glands. There is contrast in the collecting system of the right kidney from a previous CT angiogram study. Normal left kidney. There is a small hiatal hernia. Normal small intestine. There is mild to moderate stool in the colon. There is diverticulosis without visualized diverticulitis. There is non-visualization of the appendix. There is partially calcified. Normal inferior vena cava. Normal retroperitoneum. The bladder is full of contrast. State is enlarged measuring 5.2 x 5.2 cm. There is a right-sided fatty inguinal hernia. There is a midline umbilical hernia. There are diffuse degenerative changes of the visualized lumbar spine. CT/Abdomen/Pelvis without Cont IMPRESSION: Mild to moderate constipation diverticulosis no evidence of diverticulitis. Mildly enlarged prostate recommend correlation with laboratory values. Findings are not changed since prior study, March 19, 2019. Enlarged fatty infiltrated liver with sparing. The minimal heterogeneity and mild wall thickening of the distal esophagus similar to prior study consider esophagitis. Multilevel degenerative change of the thoracolumbar spine stable since prior study. Electronically Signed: Britni Chaidez MD at 14:09 EDT Tel , Service support ,
[2019-04-09] MEDS: amLODIPine 10 MG Tablet PO (14:00)
[2019-04-09] MEDS: Metoprolol Tartrate 50 MG Tablet PO ×2 (14:00→21:58)
[2019-04-09] MEDS: Lisinopril 40 MG Tablet PO (14:00)
[2019-04-09 14:28] LABS: Amphetamine Urine VISTA NEGATIVE (<1000 ng/mL); Barbiturate Urine VISTA NEGATIVE (< 200 ng/mL); Benzodiazepine Urine VISTA NEGATIVE (< 200 ng/mL); Cocaine Urine VISTA NEGATIVE (< 300 ng/mL); Ecstacy Urine VISTA NEGATIVE (< 500 ng/mL); Methadone Urine VISTA NEGATIVE (< 300 ng/mL); PCP Urine VISTA NEGATIVE (< 25 ng/mL); THC Urine VISTA NEGATIVE (< 50 ng/mL); Vista UDS pH Range 5
[2019-04-09] MEDS: Acetaminophen 325 MG Tablet 650 MG PO (19:58)
[2019-04-09] MEDS: MELATONIN 3 MG TABLET PO (21:57)
[2019-04-09] MEDS: Famotidine 20 MG Tablet PO (21:58)
[2019-04-10] VITALS (12 sets, daily range): BP systolic 104–143; BP diastolic 67–83; PULSE 49–79; RESP 16–18; TEMP 36.3–37.1; O2SAT 93–98; BMI 33.0
[2019-04-10] MEDS: Morphine 2 MG/ML Syringe IV ×4 (02:11→21:26)
[2019-04-10 06:34] LABS: Absolute Lymphocyte Count 2.54 X10^3/uL (0.83-4.51); Absolute Neutrophil Count 11.7 X10^3/uL (2.0-7.7); Basophil# 0.02 X10^3/uL; Basophil% 0.1 % (0-1); Eosinophil# 0.03 X10^3/uL; Eosinophils% 0.2 % (0-5); Hemoglobin 15.4 g/dL (13.0-16.5); Lymphocyte # 2.54 X10^3/ul (4.0); Lymphocyte % 16.3 % (19-41); Mean Corp Hgb Conc 32.8 g/dL (32-36); Mean Corpuscular Hgb 28.4 pg (27.0-32.0); Mean Corpuscular Volume 86.6 fL (80-94); Mean Platelet Vol. 9.9 fl (6.2-12.0); Monocyte# 1.18 X10^3/uL; Monocyte% 7.6 % (0-10); NRBC Flagged by Analyzer 0 % (0-5); Neutrophil # 11.69 X10^3/uL (2.7-7.7); Neutrophil % 75.2 % (47-70); Platelet Count 290 K/mm3 (150-450); RBC Distribution Width CV 13.6 % (11.6-14.6); RBC Distribution Width SD 42.8 fl (35.1-43.9); Red Blood Count 5.43 M/mm3 (4.6-6.2); White Blood Count 15.6 K/mm3 (4.4-11.0)
[2019-04-10 06:55] LABS: Anion Gap 9 (5-15); BUN 25 mg/dL (7-18); BUN/Creat Ratio 25.5 RATIO (10-20); Calcium,Total 8.5 mg/dL (8.5-10.1); Chloride 104 mmol/L (98-107); Cholesterol 228 mg/dL (200); Creatinine, Serum 0.98 mg/dL (0.70-1.30); EST Glomerular Filtration Rate 83 mL/min (>60); Est Glom Filt Rate - Afr Amer 101 mL/min (>60); Estimated Creatinine Clearance 96.69 ml/min; Glucose 143 mg/dL (74-106); High Density Lipoprotein 43 mg/dL; PSA,Total- Diagnostic 3.31 ng/mL (0.0-4.0); Potassium 4.1 mmol/L (3.5-5.1); Sodium Level 138 mmol/L (136-145); Triglycerides 108 mg/dL; Very Low Density Lipoprotein 22 mg/dL (5-40)
[2019-04-10 08:02] LABS: Hemoglobin A1c 6.9 % (4.2-6.3)
[2019-04-10 08:09] LABS: Bacteria 0 SEEN /hpf (None Seen); Mucous, Urine 0 SEEN /hpf (<or=2+); Red Blood Cells-Urine 0 SEEN /hpf (0-5); Squamous Epithelial Cells - UA 0 SEEN /hpf (0-5); White Blood Cells 0 SEEN /hpf (0-5)
[2019-04-10 08:24] LABS: Color, Urine Yellow (Yellow); Glucose, Dipstick Normal (Normal); Ketone-Dipstick Negative (Negative); Leukocyte Esterase-Dipstick Negative /ul (Negative); Nitrite-Dipstick Negative (Negative); Occult Blood-Urine Negative /ul (Negative); Protein-Dipstick 15 mg/dl (Negative); Urine Bilirubin Dipstick Negative (Negative); Urine Clarity Clear (Clear); Urine Urobilinogen Normal (Normal)
[2019-04-10] MEDS: Acetaminophen 325 MG Tablet 650 MG PO ×3 (08:28→21:27)
--- NOTE | 2019-04-10 08:30 | MRI_ITS ---
STUDY: MRI BRAIN WITHOUT CONTRAST REASON FOR EXAM: Male, 58 years old. Confusion, unsteady gait, syncope, h/o migraines, htn. TECHNIQUE: Standardized multiplanar fat and water weighted pulse sequences were obtained. COMPARISON: April 09, 2018 FINDINGS: Normal size of the ventricles and extra-axial spaces for the patient's age. There are a limited number of small white matter hyperintensities, distributed throughout the deep white matter tracts of the cerebral hemispheres, consistent with mild chronic white matter ischemic changes. Normal bilateral basal ganglia. Normal thalami. There is no extra-axial fluid accumulation. Normal flow voids within the major intracranial circulation suggesting patency by spin echo criteria. Normal sella turcica, pituitary gland, infundibular stalk, optic chiasm and hypothalamus. Normal tectal plate and pineal gland. Normal midbrain, jeremie and medulla. Normal cerebellum. MRI/Brain without Contrast IMPRESSION: No acute intracranial abnormality Electronically Signed: Carlota Rivas MD at 14:12 EDT Tel , Service support ,
[2019-04-10] MEDS: Enoxaparin 40 MG/0.4 ML Syringe SC (10:24)
[2019-04-10] MEDS: Citalopram 40 MG TABLET PO (10:25)
[2019-04-10] MEDS: Famotidine 20 MG Tablet PO ×2 (10:26→21:27)
--- NOTE | 2019-04-10 10:41 | CASEMGMT ---
TANYA DE SANTIAGO assessment: Face to Face with patient for initial transition planning/care coordination assessment. TANYA DE SANTIAGO introduced self and role at [facility], pt voices understanding and consents to assessment at this time. Pt is sitting up in chair in no distress at this time. Pt is A/Ox4 at this time and answers all questions appropriately at this time. Care providers, pharmacy, and demographics verified at this time. PCP: [facility] Specialists: Pt states currently has no specialists. [facility]erred [facility]acy: [facility] Insurance: [place] Prescription Benefit: [place] Living Will/HPOA: Pt states does not have LW/HPOA but would like AD info at this time. Pt is aware that AD's can be completed here with SW, voices understanding. Liza NICHOLAS aware at this time, voices understanding. LNOK: Shana Guerrero, Living Arrangements: Pt lives with in 2 story home and states no concerns at home at this time. Pt states is independent with ADL's. Transportation: Pt states drives self and states no transportation concerns at this time. DME/HHC: Pt states no current DME or need for any at this time. Pt states no hx of HHC or SNF in the past. Pt states no concerns with going home at time of discharge. 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 Pt states does not smoke or drink ETOH. Pt states no further concerns/needs at this time. CM to follow for any further discharge planning/needs. Advised pt to ask for CM if any further questions/concerns/needs arise, voices understanding. Pt Goal: Home Plan[place] TANYA DE SANTIAGO
--- NOTE | 2019-04-10 10:54 | PCM.CONS.GEN ---
Problem List (1) Altered mental status, unspecified Status: Acute Qualifiers: Altered mental status type: unspecified Qualified Code(s): R41.82 - Altered mental status, unspecified (2) Syncope Status: Acute Qualifiers: Syncope type: unspecified Qualified Code(s): R55 - Syncope and collapse (3) Hypertensive urgency Status: Acute Reason for Consult Date of Consultation: 04/10/19 Reason for Consultation: Confusion, syncope History of Present Illness: The patient is a 58 year old M [facility] HTN, history of stroke, history of neck surgery, anxiety/depression, admitted with altered mental status and confusion. Per patient yesterday's 04/09/2019 patient got up at around 5:30 AM and got ready to go to work, patient then suddenly had episode of confusion and he passed out, had a fall, hit the head, per patient he may have passed out for few seconds, denies any tongue bite, denies any urinary incontinence, but was confused after the event, per documentation patient was probably sleepy and not feeling well the day before. Per patient at present he denies any confusion, dizziness, focal motor weakness, sensory loss, speech disturbances, visual disturbances and per patient his headache has improved. CT head done on admission did not report anything acute but showed chronic left basal ganglia infarct, CTA head/neck did not show any hemodynamically significant stenosis or occlusion. Per patient he is not on any aspirin or any antiplatelets at baseline, denies any frequent falls, does not use a cane or walker to ambulate, and does drive. Patient was found to have uncontrolled high blood pressure on admission. Per patient he has been stressed out of late as 1 of his sons had overdosed on heroine about a week ago, and per patient he generally goes to counseling for help. [] Past Medical History Past Medical History (Chronic Problems): Chronic Problems Thrombocytosis (Chronic) Iron deficiency anemia (Chronic) Anxiety and depression (Chronic) Chronic back pain (Chronic) TIA (transient ischemic attack) (Chronic) Migraine (Chronic) Sleep disorder breathing (Chronic) CVA (cerebral vascular accident) (Chronic) Depression (Chronic) Benign essential hypertension (Chronic) Low back pain (Chronic) Urinary incontinence (Chronic) Obesity (BMI 30.0-34.9) (Chronic) Elevated PSA (Chronic) recent biopsies done by DR. Monk are negative Allergies iohexol [From Omnipaque] Allergy (Verified 07/28/19 07:54) Rash Home Medications: Ambulatory Orders Medication Instructions Recorded Citalopram Hydrobromide 40 mg PO DAILY 07/05/16 [Citalopram HBr] Amlodipine [Norvasc] 10 mg PO DAILY 12/29/17 Zolpidem Tartrate [Ambien] 10 mg PO QHS 04/27/18 Lisinopril [Zestril] 40 mg PO DAILY 08/08/18 Acetaminophen [Tylenol Tablet] 650 mg PO Q4H PRN PRN #30 tablet 08/10/18 Metoprolol Tartrate [Lopressor 50 mg PO BID #60 tablet 08/10/18 (beta lorenzo)] Surgical History: appendectomy, - - Cervical fusion, prostate biopsy, BL TKR. Psychiatric History: Depression - does not take his medication routinely Lives: Spouse/ Significant Other Smoking Status: Never smoker Tobacco Use: Non-smoker Alcohol: None Drugs: None - *Family History Maternal History Items: - - His mother of a brain aneurysm, age 65 Paternal History Items: Cancer - Fathered with history of cancer, bone and lung, age 75 Review of Systems Constitutional: Reports: - - Complete ROS negative except as documented in HPI Patient Problems: Active and Suspected Problems Altered mental status, unspecified (Acute) Hypertensive emergency (Acute) Syncope (Acute) - Physical Exam General: Alert HEENT: Normocephalic Neck: Supple Lungs: Normal air movement Cardiovascular: Normal S1, Normal S2 Abdomen: Bowel Sounds Present Extremities: No cyanosis Neurological: - - Conscious, alert, CN II through XII grossly intact, power 5 x 5 both upper and lower extremities, no sensory loss, no cerebellar signs, no speech disturbances at present, gait deferred, reflexes + B/L B/S/T/K/A Psych/Mental Status: Normal Affect Vital Signs Temp Pulse Resp BP Pulse Ox 97.4 F L 59 L 18 122/67 H 96 04/10/19 10:04/10/19 10:00 04/10/19 10:00 04/10/19 10:04/10/19 10:00 Oxygen Flow Rate (L/min) 97 Oxygen Delivery Method Room Air Weight: 117.4 kg Body Mass Index (BMI) 33.0 Finger Stick Blood Glucose 138 Intake and Output for Last 24 Hours 04/08/19 04/09/19 04/10/19 23:59 23:59 23:59 Intake Total 1430 / 1430 240 / 240 Output Total 500 / 500 Balance 930 / 930 240 / 240 Laboratory Tests Past 24 Hrs 04/09/19 04/09/19 04/09/19 13:27 14:00 14:08 WBC RBC Hgb Hct MCV MCH MCHC RDW Std Deviation RDW Coeff of Melanie Plt Count MPV Immature Gran % (Auto) Neut % (Auto) Lymph % (Auto) [place] % (Auto) Eos % (Auto) Baso % (Auto) Absolute Neuts (auto) Absolute Lymphs (auto) Nucleated RBC % Sodium Potassium Chloride Carbon Dioxide Anion Gap BUN Creatinine Estim Creat Clear Calc Est GFR (MDRD) Af Amer Est GFR (MDRD) Non-Af BUN/Creatinine Ratio Glucose Hemoglobin A1c Calcium Troponin I < 0.015 Triglycerides Cholesterol LDL Cholesterol VLDL Cholesterol HDL Cholesterol Total PSA Urine Color Yellow Urine Clarity Clear Urine pH 5.0 Ur Specific [place] 1.010 Urine Protein 15 H Urine Glucose (UA) Normal Urine Ketones Negative Urine Occult Blood Negative Urine Nitrite Negative Urine Bilirubin Negative Urine Urobilinogen Normal Ur Leukocyte Esterase Negative Urine RBC 0 SEEN Urine WBC 0 SEEN Ur Squamous Epith Cells 0 SEEN Urine Bacteria 0 SEEN Urine Mucus 0 SEEN Urine Opiates Screen POSITIVE H Urine Methadone Screen NEGATIVE Ur Barbiturates Screen NEGATIVE Ur Phencyclidine Scrn NEGATIVE Ur Amphetamines Screen NEGATIVE U Methamphetamin-MDMA NEGATIVE U Benzodiazepines Scrn NEGATIVE Urine Cocaine Screen NEGATIVE U Cannabinoids Screen NEGATIVE Ur Drug Screen Comment 04/09/19 04/09/19 04/10/19 15:55 19:40 05:40 WBC 15.6 H RBC 5.43 Hgb 15.4 Hct 47.0 MCV 86.6 MCH 28.4 MCHC 32.8 RDW Std Deviation 42.8 RDW Coeff of Melanie 13.6 Plt Count 290 MPV 9.9 Immature Gran % (Auto) 0.600 Neut % (Auto) 75.2 H Lymph % (Auto) 16.3 L [place] % (Auto) 7.6 Eos % (Auto) 0.2 Baso % (Auto) 0.1 Absolute Neuts (auto) 11.7 H Absolute Lymphs (auto) 2.54 Nucleated RBC % 0 Sodium Potassium Chloride Carbon Dioxide Anion Gap BUN Creatinine Estim Creat Clear Calc Est GFR (MDRD) Af Amer Est GFR (MDRD) Non-Af BUN/Creatinine Ratio Glucose Hemoglobin A1c Calcium Troponin I < 0.015 < 0.015 Triglycerides Cholesterol LDL Cholesterol VLDL Cholesterol HDL Cholesterol Total PSA Urine Color Urine Clarity Urine pH Ur Specific [place] Urine Protein Urine Glucose (UA) Urine Ketones Urine Occult Blood Urine Nitrite Urine Bilirubin Urine Urobilinogen Ur Leukocyte Esterase Urine RBC Urine WBC Ur Squamous Epith Cells Urine Bacteria Urine Mucus Urine Opiates Screen Urine Methadone Screen Ur Barbiturates Screen Ur Phencyclidine Scrn Ur Amphetamines Screen U Methamphetamin-MDMA U Benzodiazepines Scrn Urine Cocaine Screen U Cannabinoids Screen Ur Drug Screen Comment 04/10/19 04/10/19 05:40 05:40 WBC RBC Hgb Hct MCV MCH MCHC RDW Std Deviation RDW Coeff of Melanie Plt Count MPV Immature Gran % (Auto) Neut % (Auto) Lymph % (Auto) [place] % (Auto) Eos % (Auto) Baso % (Auto) Absolute Neuts (auto) Absolute Lymphs (auto) Nucleated RBC % Sodium 138 Potassium 4.1 Chloride 104 Carbon Dioxide 25.0 Anion Gap 9 BUN 25 H Creatinine 0.98 Estim Creat Clear Calc 96.69 Est GFR (MDRD) Af Amer 101 Est GFR (MDRD) Non-Af 83 BUN/Creatinine Ratio 25.5 H Glucose 143 H Hemoglobin A1c 6.9 H Calcium 8.5 Troponin I Triglycerides 108 Cholesterol 228 H LDL Cholesterol 163 H VLDL Cholesterol 22 HDL Cholesterol 43 Total PSA 3.31 Urine Color Urine Clarity Urine pH Ur Specific [place] Urine Protein Urine Glucose (UA) Urine Ketones Urine Occult Blood Urine Nitrite Urine Bilirubin Urine Urobilinogen Ur Leukocyte Esterase Urine RBC Urine WBC Ur Squamous Epith Cells Urine Bacteria Urine Mucus Urine Opiates Screen Urine Methadone Screen Ur Barbiturates Screen Ur Phencyclidine Scrn Ur Amphetamines Screen U Methamphetamin-MDMA U Benzodiazepines Scrn Urine Cocaine Screen U Cannabinoids Screen Ur Drug Screen Comment Assessment/Plan All Active Problems DVT prophylaxis (Acute) Altered mental status, unspecified (Acute) Hypertensive emergency (Acute) Syncope (Acute) Noncompliance with medication regimen (Acute) Hypertensive urgency (Acute) LALITA (acute kidney injury) (Ruled-out) Headache (Acute) The patient is a 58 year old M [facility] HTN, history of stroke, history of neck surgery, anxiety/depression, admitted with altered mental status and confusion. Per patient yesterday's 04/09/2019 patient got up at around 5:30 AM and got ready to go to work, patient then suddenly had episode of confusion and he passed out, had a fall, hit the head, per patient he may have passed out for few seconds, denies any tongue bite, denies any urinary incontinence, but was confused after the event, per documentation patient was probably sleepy and not feeling well the day before. Per patient at present he denies any confusion, dizziness, focal motor weakness, sensory loss, speech disturbances, visual disturbances and per patient his headache has improved. CT head done on admission did not report anything acute but showed chronic left basal ganglia infarct, CTA head/neck did not show any hemodynamically significant stenosis or occlusion. Per patient he is not on any aspirin or any antiplatelets at baseline, denies any frequent falls, does not use a cane or walker to ambulate, and does drive. Patient was found to have uncontrolled high blood pressure on admission. Per patient he has been stressed out of late as 1 of his sons had overdosed on heroine about a week ago, and per patient he generally goes to counseling for help Impression Episode of confusion/AMS possibly secondary to uncontrolled hypertension Syncope Plan ?MRI brain without contrast ?EEG ?CT head reported to show chronic left basal angle infarct, nothing acute. ?CTA head/neck did not show any hemodynamically significant stenosis or occlusion. ?Given the history of stroke, patient should be on aspirin 81 mg p.o. once daily for secondary stroke prevention and also on Lipitor 20 mg p.o. nightly, LDL 163 and cholesterol 228 ?TTE ?Cardiology consult ?Better blood pressure control with goal of less than 130/80 mmHg defer to hospitalist ?PT/OT/ST ?Fall precautions ?GI/DVT prophylaxis ?Further medical management per hospitalist team ?Follow-up with neurology as outpatient in 6 weeks ?Please call with questions if any ?Thank you for allowing us to participate in patient's care and management. This note was generated with [employer] dictation software. It may contain incorrect words, spelling, and punctuation that were not noted in review of the chart prior to signing Code Visit Inpatient E&M: 45173 Init Hosp L3
[2019-04-10] MEDS: Metoprolol Tartrate 50 MG Tablet PO ×2 (11:12→21:26)
[2019-04-10] MEDS: amLODIPine 10 MG Tablet PO (11:13)
[2019-04-10] MEDS: Lisinopril 40 MG Tablet PO (11:13)
[2019-04-10] MEDS: Aspirin 81 MG TAB.CHEW PO (11:38)
[2019-04-10] MEDS: LORazepam 2 MG/ML Syringe 1 MG IV (11:51)
[2019-04-10] MEDS: Ondansetron 4 MG/2 ML Vial IV (14:30)
--- NOTE | 2019-04-10 15:01 | CASEMGMT ---
SW completed Healthcare Power of [employer] and Healthcare Living Will with patient. Copies made and given to patient along with originals. A copy of each was also placed in his chart. Kami SMITH
--- NOTE | 2019-04-10 15:30 | EEG ---
- Electroencephalogram Date of service 04/10/2019 History EEG is being done in this 58 yr M to rule out seizures EEG Description: This is an 18 channel EEG with 10-20 lead placement system. Bipolar montages, and Referential montages were reviewed. Photic stimulation and Hyperventilation were performed. The posterior dominant rhythm is 9 HZ synchronous, symmetric, reacting to eye opening and closing. Photo stimulation elicited normal driving response but no abnormal photoparoxysmal response, Hyperventilation did not elicit any abnormal photoparoxysmal response. Sleep was identified. There is no abnormal background slowing noted. There was no epileptiform discharges or electrographic seizures noted during this recording. EKG artefact noted during the record. EEG Interpretation This is a normal awake and asleep EEG. There is no epileptiform discharges or electrographic seizures noted during the record.
[2019-04-10] MEDS: Tamsulosin HCl 0.4 MG Capsule PO (17:47)
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
[2019-04-10] MEDS: Zolpidem Tartrate 5 MG Tablet PO (21:27)
[2019-04-10] MEDS: Atorvastatin Calcium 20 MG Tablet PO (21:27)
[2019-04-11] VITALS (9 sets, daily range): BP systolic 113–148; BP diastolic 52–81; PULSE 50–62; RESP 16–18; TEMP 36.4–36.7; O2SAT 95–98; BMI 33.0
--- NOTE | 2019-04-11 05:55 | EKG12_ITS ---
Test Reason : AM EKG Blood Pressure : / mmHG Vent. Rate : 049 BPM Atrial Rate : 049 BPM P-R Int : 162 ms QRS Dur : 122 ms QT Int : 450 ms P-R-T Axes : 010 033 029 degrees QTc Int : 406 ms Sinus bradycardia Non-specific intra-ventricular conduction delay Borderline ECG When compared with ECG of 09-APR-2019 08:31, MANUAL COMPARISON REQUIRED, DATA IS UNCONFIRMED Confirmed by REINALDO SANTIAGO ([id number]), television news video editor FIDEL BERMAN ([id number]) on 04/14/2019 9:05:13 AM Referred By: SHEYLA Confirmed By:REINALDO SANTIAGO
[2019-04-11] MEDS: Lisinopril 40 MG Tablet PO (06:28)
[2019-04-11] MEDS: Aspirin 81 MG TAB.CHEW PO (06:28)
[2019-04-11 06:38] LABS: Prothrombin Time (Protime)PT. 13.2 SECONDS (11.7-14.9)
[2019-04-11 06:41] LABS: Absolute Lymphocyte Count 3.93 X10^3/uL (0.83-4.51); Absolute Neutrophil Count 4.7 X10^3/uL (2.0-7.7); Basophil# 0.05 X10^3/uL; Basophil% 0.5 % (0-1); Eosinophil# 0.19 X10^3/uL; Hematocrit 44.5 % (40-54); Hemoglobin 14.4 g/dL (13.0-16.5); Lymphocyte # 3.93 X10^3/ul (4.0); Mean Corp Hgb Conc 32.4 g/dL (32-36); Mean Corpuscular Hgb 28.4 pg (27.0-32.0); Mean Corpuscular Volume 87.8 fL (80-94); Mean Platelet Vol. 9.8 fl (6.2-12.0); Monocyte# 0.67 X10^3/uL; NRBC Flagged by Analyzer 0 % (0-5); Platelet Count 258 K/mm3 (150-450); RBC Distribution Width CV 13.8 % (11.6-14.6); RBC Distribution Width SD 43.7 fl (35.1-43.9); Red Blood Count 5.07 M/mm3 (4.6-6.2); White Blood Count 9.6 K/mm3 (4.4-11.0)
[2019-04-11 06:51] LABS: Bedside Glucose 106 mg/dL (70-110)
[2019-04-11 06:54] LABS: Anion Gap 7 (5-15); BUN 27 mg/dL (7-18); BUN/Creat Ratio 27.2 RATIO (10-20); Calcium,Total 8.2 mg/dL (8.5-10.1); Chloride 103 mmol/L (98-107); Creatinine, Serum 0.99 mg/dL (0.70-1.30); EST Glomerular Filtration Rate 82 mL/min (>60); Est Glom Filt Rate - Afr Amer 100 mL/min (>60); Estimated Creatinine Clearance 95.72 ml/min; Glucose 105 mg/dL (74-106); Potassium 4.5 mmol/L (3.5-5.1); Sodium Level 138 mmol/L (136-145)
[2019-04-11] MEDS: Acetaminophen 325 MG Tablet 650 MG PO (07:24)
[2019-04-11] MEDS: Morphine 2 MG/ML Syringe IV (07:25)
--- NOTE | 2019-04-11 09:44 | STRESSREP ---
Stress Test Report Date: 04-11-19 Procedure: Exercise tolerance test/imaging study Indications: Near-syncope/syncope; CAD Consent: Per the patient Procedure: The patient exercised on a Ezra protocol for 8 minutes and 30 seconds completing Stage II and 2 minutes and 30 seconds of Stage III achieving a peak heart rate of 129 bpm (79 % predicted maximal heart rate) with a peak blood pressure 182/100 mmHg and a peak MET capacity of 9 METs. The baseline ECG demonstrated sinus bradycardia. The peak exercise ECG demonstrated no obvious ECG changes. There was a rare PVC and an isolated ventricular couplet during exercise. The functional capacity was considered good. There was no complaint of chest discomfort during exercise or recovery. The examination was discontinued secondary to dyspnea; fatigue; left arm discomfort . Impression: 1. Technically adequate (percent predicted maximal heart rate greater than 85%) exercise tolerance test 2. Peak exercise ECG mistreated no obvious ECG changes at the heart rate achieved 3. There was a rare PVC and an isolated ventricular couplet during exercise 4. Nuclear images pending Myocardial perfusion imaging study: Technique: The patient was injected with 14.5 mCi of technetium 99m Cardiolite and subsequently rest SPECT Cardiolite nuclear imaging was obtained in the horizontal long, vertical long, and short axis views. The patient exercised on a Ezra protocol for 8 minutes and 30 seconds completing Stage II and 2 minutes and 30 seconds of Stage III achieving a peak heart rate of 129 bpm (79 % predicted maximal heart rate) with a peak blood pressure 182/100 mmHg and a peak MET capacity of 9 METs. The patient was injected with 44.7 mCi of technetium 99m Cardiolite and subsequently stress SPECT Cardiolite nuclear imaging was obtained in the horizontal long, vertical long, and short axis views. A gated Cardiolite study at peak stress was obtained. Interpretation: Rest and stress SPECT Cardiolite nuclear imaging status post realignment, normalization, and attenuation correction, demonstrates the appearance of relative uniform tracer uptake and myocardial perfusion appearing within normal limits. There is end systolic thickening and brightening. The gated Cardiolite study demonstrates myocardial thickening and inward wall motion. The reported LVEF is 57 %. Impression: 1. Rest and stress SPECT Cardiolite nuclear imaging demonstrate relative uniform tracer uptake and myocardial perfusion appearing within normal limits at the heart rate achieved. 2. The gated Cardiolite study reports an LVEF of 57 %. This note was generated with Next[employer] software. It may contain incorrect words, spelling, and punctuation that were not noted in checking the note before signing.
[2019-04-11] MEDS: Metoprolol Tartrate 50 MG Tablet PO (10:38)
[2019-04-11] MEDS: Citalopram 40 MG TABLET PO (10:38)
[2019-04-11] MEDS: Enoxaparin 40 MG/0.4 ML Syringe SC (10:39)
[2019-04-11] MEDS: amLODIPine 10 MG Tablet PO (10:39)
[2019-04-11] MEDS: Famotidine 20 MG Tablet PO (10:39)
--- NOTE | 2019-04-11 11:25 | PCM.DC ---
- Discharge Diagnoses Current Active Problems: Current Active and Chronic Problems Altered mental status, unspecified (Acute) Hypertensive emergency (Acute) Syncope (Acute) You will use the following diet at home:: Other - Low-fat, carbohydrate controlled Your food should be the consistency of: Regular Your liquids should be the consistency of: Regular/Thin Discharge Activity: Return to Normal Activity Call your doctor if you observe: Fever of 101 or Higher, Inability to urinate, Shortness of breath, Dizziness, Fainting spells, Swelling in the ankles, Uncontrolled pain Additional Instructions: 1. You have diabetes mellitus type 2. Your blood sugars are mildly elevated and at this time you do not require medication. Decrease your carbohydrate intake and lose some weight and you may not need medication in the future. 2. Your cholesterol is too high. Cholesterol can be broken down into good cholesterol and bad cholesterol. The bad cholesterol is the LDL and in patients with a history of TIA or stroke the LDL needs to be 70 or less. Your LDL is 163 and you have been started on a medication called Lipitor to lower your cholesterol. You will need your primary care doctor to order a lipid profile and liver tests in 6 weeks to see how the lipid-lowering agent is working. 3. Your prostate is enlarged but your PSA is within normal limits. We have started you on a medication called Flomax to help the urine flow better. I suggest you follow-up with a urologist as an outpatient and the urologist at [facility] is Dr. Gaona. 4. If the abdominal pain fails to resolve with the flomax I would discuss starting a drug to treat irritable bowel syndrome with Dr. De Santiago or ask to see a surgeon for possible adhesions. Jaylen Lang. I really hope things work out for you, your family and danielle your son.......I hope something clicks with him in rehab and he is able to get off drugs.......most people go to rehab more than one time and sometimes 7-8 times before they are able to stay off drugs. Hang in there Pending Tests on Discharge: none Allergies/Adverse Reactions: Allergies iohexol [From Omnipaque] Allergy (Verified 04/09/19 07:54) Rash Medications to take at Discharge Citalopram Hydrobromide [Citalopram HBr] 40 mg PO DAILY 07/05/16 Amlodipine [Norvasc] 10 mg PO DAILY 12/29/17 Zolpidem Tartrate [Ambien] 10 mg PO QHS 04/27/18 Lisinopril [Zestril] 40 mg PO DAILY 08/08/18 Acetaminophen [Tylenol Tablet] 650 mg PO Q4H PRN PRN #30 tablet 08/10/18 Metoprolol Tartrate [Lopressor (beta lorenzo)] 50 mg PO BID #60 tablet 08/10/18 Aspirin [Aspirin, Baby] 81 mg PO DAILY@0800 tab.chew 04/11/19 Atorvastatin Calcium [Lipitor] 20 mg PO QHS #30 tab 04/11/19 Tamsulosin HCl [Flomax] 0.4 mg PO DAILY@1730 #30 cap 04/11/19 The following prescriptions were given: Tamsulosin HCl [Flomax] 0.4 mg PO DAILY@1730 #30 cap Transmission Status: Received by [facility] Atorvastatin Calcium [Lipitor] 20 mg PO QHS #30 tab Transmission Status: Received by [facility] Primary Care Physician: Billy De Santiago MD [Primary Care Provider] - Please follow up with your Primary Care Physician in: 2 weeks Test Results: Test results from this visit will be discussed in further detail at your follow-up appointment, if applicable. Proposed Discharge Date: 04/11/19
[2019-04-11] MEDS: Gabapentin 300 MG Capsule PO (11:53)
--- NOTE | 2019-04-11 12:00 | PN.NEURO_ITS ---
Patient Problems: Active and Suspected Problems Leukocytosis (Acute) Diabetes mellitus type 2 in obese (Acute) BPH (benign prostatic hyperplasia) (Acute) Hypertensive emergency (Acute) Syncope (Acute) Subjective: No issues overnight. Care discussed with the hospitalist. Per photovoltaic technician patient was dizzy and lightheaded yesterday 04/10/2019 while the EEG was being done. But patient denies any dizziness or lightheadedness at present. - Physical Exam General: Alert HEENT: Normocephalic Neck: Supple Lungs: Normal air movement Cardiovascular: Normal S1, Normal S2 Abdomen: Bowel Sounds Present Extremities: No cyanosis Neurological: - - Conscious, alert, CN II through XII grossly intact, power 5 x 5 both upper and lower extremities, no sensory loss, no cerebellar signs, no speech disturbances at present, gait deferred, reflexes + B/L B/S/T/K/A Psych/Mental Status: Normal Affect Vital Signs Temp Pulse Resp BP Pulse Ox 97.7 F L 60 16 113/57 L 95 04/11/19 10:48 04/11/19 11:20 04/11/19 10:48 04/11/19 10:48 04/11/19 10:48 Oxygen Flow Rate (L/min) 97 Oxygen Delivery Method Room Air Weight: 119 kg Body Mass Index (BMI) 33.0 Finger Stick Blood Glucose 138 Intake and Output for Last 24 Hours 04/09/19 04/10/19 04/11/19 23:59 23:59 23:59 Intake Total 1430 / 1430 840 / 1080 840 / 840 Output Total 500 / 500 Balance 930 / 930 840 / 1080 840 / 840 Microbiology Past 72 Hours 04/09/19 14:00 Urine Culture - Preliminary Urine, Clean Catch Culture exhibits no growth. Laboratory Tests Past 24 Hrs 04/11/19 04/11/19 04/11/19 06:10 06:10 06:10 WBC 9.6 RBC 5.07 Hgb 14.4 Hct 44.5 MCV 87.8 MCH 28.4 MCHC 32.4 RDW Std Deviation 43.7 RDW Coeff of Melanie 13.8 Plt Count 258 MPV 9.8 Immature Gran % (Auto) 0.500 Neut % (Auto) 49.0 Lymph % (Auto) 41.0 [place] % (Auto) 7.0 Eos % (Auto) 2.0 Baso % (Auto) 0.5 Absolute Neuts (auto) 4.7 Absolute Lymphs (auto) 3.93 Nucleated RBC % 0 PT 13.2 INR 1.0 APTT 30.0 Sodium 138 Potassium 4.5 Chloride 103 Carbon Dioxide 28.0 Anion Gap 7 BUN 27 H Creatinine 0.99 Estim Creat Clear Calc 95.72 Est GFR (MDRD) Af Amer 100 Est GFR (MDRD) Non-Af 82 BUN/Creatinine Ratio 27.2 H Glucose 105 Calcium 8.2 L POC Glucose 04/11/19 06:31 POC Glucose 106 Medical Necessity - Tobacco Use Smoking Status: Never smoker Tobacco Use: Non-smoker Assessment/Plan All Active Problems Leukocytosis (Acute) Diabetes mellitus type 2 in obese (Acute) BPH (benign prostatic hyperplasia) (Acute) Hypertensive emergency (Acute) Syncope (Acute) ALLITA (acute kidney injury) (Ruled-out) Headache (Acute) CVA (cerebral vascular accident) (Resolved) Elevated PSA (Resolved) Thrombocytosis (Resolved) The patient is a 58 year old M [facility] HTN, history of stroke, history of neck surgery, anxiety/depression, admitted with altered mental status and confusion. Per patient yesterday's 04/09/2019 patient got up at around 5:30 AM and got ready to go to work, patient then suddenly had episode of confusion and he passed out, had a fall, hit the head, per patient he may have passed out for few seconds, denies any tongue bite, denies any urinary incontinence, but was confused after the event, per documentation patient was probably sleepy and not feeling well the day before. Per patient at present he denies any confusion, dizziness, focal motor weakness, sensory loss, speech disturbances, visual disturbances and per patient his headache has improved. CT head done on admission did not report anything acute but showed chronic left basal ganglia infarct, CTA head/neck did not show any hemodynamically significant stenosis or occlusion. Per patient he is not on any aspirin or any antiplatelets at baseline, denies any frequent falls, does not use a cane or walker to ambulate, and does drive. Patient was found to have uncontrolled high blood pressure on admission. Per patient he has been stressed out of late as 1 of his sons had overdosed on heroine about a week ago, and per patient he generally goes to counseling for help Impression Episode of confusion/AMS possibly secondary to uncontrolled hypertension Syncope Plan ?MRI brain without contrast-nothing acute, possible old left basal ganglia infarct ?EEG- normal ?CT head reported to show chronic left basal angle infarct, nothing acute. ?CTA head/neck did not show any hemodynamically significant stenosis or occlusion. ?Given the history of stroke, patient should be on aspirin 81 mg p.o. once daily for secondary stroke prevention and also on Lipitor 20 mg p.o. nightly, LDL 163 and cholesterol 228 ?TTE-EF 60%, normal LA size ?Cardiology consult ?Better blood pressure control with goal of less than 130/80 mmHg defer to hospitalist ?PT/OT/ST ?Fall precautions ?GI/DVT prophylaxis ?Further medical management per hospitalist team ?Follow-up with neurology as outpatient in 6 weeks ?Please call with questions if any ?Thank you for allowing us to participate in patient's care and management. This note was generated with [employer] dictation software. It may contain incorrect words, spelling, and punctuation that were not noted in review of the note prior to signing
[2019-04-11] MEDS: Tamsulosin HCl 0.4 MG Capsule PO (16:25)
--- NOTE | 2019-04-11 18:17 | PCM.DC.SUM ---
Discharge Date and Diagnosis - Problem List Patient Problems: Active and Suspected Problems Leukocytosis (Acute) Diabetes mellitus type 2 in obese (Acute) BPH (benign prostatic hyperplasia) (Acute) Date of Admission: 04/09/19 Date of Discharge: 04/11/19 - Primary Discharge Diagnosis Active and Suspected Problems Syncope (Acute) Hypertensive emergency (Acute) Transient confusion and slurred speech-possibly secondary to uncontrolled hypertension. CVA ruled out Leukocytosis (Acute) - due to solu-medrol Diabetes mellitus type 2 in obese (Acute) - new diagnosis BPH (benign prostatic hyperplasia)suspected - Secondary Discharge Diagnosis Chronic Problems Abdominal pain (Chronic) - possible IBS vs adhesions Grade II diastolic dysfunction (Chronic) Hyperlipidemia (Chronic) Iron deficiency anemia (Chronic) Anxiety and depression (Chronic) Chronic back pain (Chronic) TIA (transient ischemic attack) (Chronic) Migraine (Chronic) Sleep disorder breathing (Chronic) Depression/anxiety (Chronic) Benign essential hypertension (Chronic) Low back pain (Chronic) Urinary incontinence and nocturia (Chronic) Obesity (BMI 30.0-34.9) (Chronic) Hospital Course and Treatment Imaging Results: Clinical Impression(s) from Imaging Studies Brain CT 04/09/19 08:18 IMPRESSION: No acute intracranial abnormality. Chronic left basal ganglia infarct. Electronically Signed: Carlota Rivas MD at 8:37 EDT Tel , Service support , Chest X-Ray 04/09/19 08:18 IMPRESSION: No evidence of acute cardiopulmonary process. Electronically Signed: Juan M Field DO at 8:58 EDT , Service support , Head/Neck CTA 04/09/19 09:00 IMPRESSION: No evidence of significant steno-occlusive disease or aneurysm. Electronically Signed: Juan M Field DO at 10:26 EDT , Service support , Abdomen/Pelvis CT 04/09/19 12:53 IMPRESSION: Mild to moderate constipation diverticulosis no evidence of diverticulitis. Mildly enlarged prostate recommend correlation with laboratory values. Findings are not changed since prior study, March 19, 2019. Enlarged fatty infiltrated liver with sparing. The minimal heterogeneity and mild wall thickening of the distal esophagus similar to prior study consider esophagitis. Multilevel degenerative change of the thoracolumbar spine stable since prior study. Electronically Signed: Britni Chaidez MD at 14:09 EDT Tel , Service support , Brain MRI 04/10/19 08:30 IMPRESSION: No acute intracranial abnormality Electronically Signed: Carlota Rivas MD at 14:12 EDT Tel , Service support , Dr. Moore-neurology Operations: None Procedures: 2-D Echocardiogram, Nuclear stress test Summary of Care Provided: The patient is a 58-year-old male with a past medical history of chronic back pain, chronic bilateral knee pain, chronic lower abdominal pain for the past 6 to 7 months, anxiety/depression, insomnia and obesity who presented to the emergency department at [facility] on 04/09/2019 complaining of having a syncopal episode at home. He told me that he fell over a chair and he does not recall if he passed out after falling over the chair or passed out and then fell over a chair. When he awoke he recognized his 's voice and he knew where he was. He denied any fecal or urinary incontinence. He complained of difficulty getting his words out in the emergency department and also some difficulty swallowing. He also related that he had a similar episode while in a restaurant approximately 1 year ago and it lasted a few hours. Vital signs at presentation to the emergency room were temperature 98.6, pulse rate 83, blood pressure 189/120, respiratory rate 17 and he was 95% saturated on room air. CBC was remarkable for an elevated hemoglobin at 16.7. BUN was 17 with a creatinine of 0.94 and a BUN/creatinine ratio of 18.2. LFTs were unremarkable. Troponin was less than 0.015. UA was negative for infection or hematuria. Brain CT had no acute findings. In addition to syncope and slurred speech with difficulty swallowing he complained of pain in the right and left lower abdomen which comes and goes and has been present for the past 6 or [address] scan of the abdomen and pelvis showed mild to moderate constipation and diverticulosis with no evidence of diverticulitis. The prostate was mildly enlarged and there was fatty infiltration of the liver. Many years ago he had an elevated PSA and was seen by Dr. Monk and had a prostate biopsy that was negative for malignancy. No source for lower abdominal pain was identified. He was admitted to a monitored bed on PCU and the stroke protocol was initiated. He was started on aspirin 81 mg daily. CTA of the head and neck were negative for any significant stenosis or dissection or aneurysm. MRI of the brain showed no acute abnormality. He was seen in consultation by Dr. Moore from neurology who ordered an EEG which was negative for epileptiform activity. A lipid panel showed an elevated LDL at 163 and the patient was started on Lipitor. A transthoracic echocardiogram showed a left ventricular ejection fraction of 60% with stage II diastolic dysfunction and +1 TR. Telemetry showed normal sinus rhythm and sinus bradycardia with no significant ectopy and specifically no atrial fibrillation. A nuclear stress test was done on the date of discharge and was negative for ischemia. The gated nuclear ejection fraction was 57%. While in the hospital he was started on Flomax because of nocturia, urge incontinence and urinary frequency and this improved his flow and prior to discharge he slept through the night without having to get up to urinate. On the date of discharge he was given a dose of gabapentin to see if the abdominal pain would improve and point us toward radiculitis as the etiology of the lower abdominal pain which is severe for 5 to 10 seconds and then resolves. The gabapentin was not very effective. He was then given a dose of Librax for possible irritable bowel syndrome and this did not change his pain at all. He is very overwhelmed currently because his son overdosed on illicit drugs 1 week prior to admission and is now living with him and his . There is a lot of conflict in the family over this arrangement. He has had anxiety and depression in the past and is on a high dose of citalopram and Ambien at night. He is currently seeing a counselor once a week. He has been seen by behavioral health at [facility] in the past. He was discharged home on Flomax, aspirin and atorvastatin in addition to his regular home medications. He will need a liver panel and lipid profile in 6 weeks. If the abdominal pain persists he may want to consider a surgical consult since he has had an appendectomy in the past and may have adhesions. Another consideration would be starting a medication to treat irritable bowel syndrome. - Physical Exam General: Alert, Oriented x3, Cooperative, No apparent distress HEENT: Atraumatic, PERRLA, EOMI, Normocephalic Oral: Moist Mucosa Neck: Supple, No JVD, Negative Carotid Bruits Lungs: Clear to auscultation Cardiovascular: Regular rate, Regular Rhythm, Normal S1, Normal S2, No murmurs, No rub noted, No Gallop Abdomen: Bowel Sounds Present, Soft, Non-Distended, Obese, Tender - Intermittently tender in the right and left lower quadrants laterally.... Nontender with palpation and no guarding with even deep palpation. Extremities: No clubbing, No cyanosis, No edema Neurological: Cranial nerves II-XII grossly intact, Neuro grossly intact Psych/Mental Status: Appropriate, Flat Affect This note was generated with [employer] dictation software. It may contain incorrect words, spelling, and punctuation that were not noted in checking the note before signing. Patient Problems: Active and Suspected Problems Leukocytosis (Acute) Diabetes mellitus type 2 in obese (Acute) BPH (benign prostatic hyperplasia) (Acute) - Physical Exam Vital Signs Temp Pulse Resp BP Pulse Ox 97.8 F 58 L 16 148/73 H 98 04/11/19 16:30 04/11/19 16:30 04/11/19 16:30 04/11/19 16:30 04/11/19 16:30 Oxygen Flow Rate (L/min) 97 Oxygen Delivery Method Room Air Weight: 262 lb 5.601 oz Body Mass Index (BMI) 33.0 Finger Stick Blood Glucose 138 Intake and Output for Last 24 Hours 04/09/19 04/10/19 04/11/19 23:59 23:59 23:59 Intake Total 1430 / 1430 840 / 1080 840 / 840 Output Total 500 / 500 Balance 930 / 930 840 / 1080 840 / 840 Microbiology Past 72 Hours 04/09/19 14:00 Urine Culture - Preliminary Urine, Clean Catch Culture exhibits no growth. Laboratory Tests Past 24 Hrs 04/11/19 04/11/19 04/11/19 06:10 06:10 06:10 WBC 9.6 RBC 5.07 Hgb 14.4 Hct 44.5 MCV 87.8 MCH 28.4 MCHC 32.4 RDW Std Deviation 43.7 RDW Coeff of Melanie 13.8 Plt Count 258 MPV 9.8 Immature Gran % (Auto) 0.500 Neut % (Auto) 49.0 Lymph % (Auto) 41.0 [place] % (Auto) 7.0 Eos % (Auto) 2.0 Baso % (Auto) 0.5 Absolute Neuts (auto) 4.7 Absolute Lymphs (auto) 3.93 Nucleated RBC % 0 PT 13.2 INR 1.0 APTT 30.0 Sodium 138 Potassium 4.5 Chloride 103 Carbon Dioxide 28.0 Anion Gap 7 BUN 27 H Creatinine 0.99 Estim Creat Clear Calc 95.72 Est GFR (MDRD) Af Amer 100 Est GFR (MDRD) Non-Af 82 BUN/Creatinine Ratio 27.2 H Glucose 105 Calcium 8.2 L POC Glucose 04/11/19 06:31 POC Glucose 106 Discharge Activity: Return to Normal Activity Call your doctor if you observe: Fever of 101 or Higher, Inability to urinate, Shortness of breath, Dizziness, Fainting spells, Swelling in the ankles, Uncontrolled pain Home Medications: Medications to take at Discharge Citalopram Hydrobromide [Citalopram HBr] 40 mg PO DAILY 07/05/16 Amlodipine [Norvasc] 10 mg PO DAILY 12/29/17 Zolpidem Tartrate [Ambien] 10 mg PO QHS 04/27/18 Lisinopril [Zestril] 40 mg PO DAILY 08/08/18 Acetaminophen [Tylenol Tablet] 650 mg PO Q4H PRN PRN #30 tablet 08/10/18 Metoprolol Tartrate [Lopressor (beta lorenzo)] 50 mg PO BID #60 tablet 08/10/18 Aspirin [Aspirin, Baby] 81 mg PO DAILY@0800 tab.chew 04/11/19 Atorvastatin Calcium [Lipitor] 20 mg PO QHS #30 tab 04/11/19 Tamsulosin HCl [Flomax] 0.4 mg PO DAILY@1730 #30 cap 04/11/19 Following Prescrptions Were Given to Patient: Tamsulosin HCl [Flomax] 0.4 mg PO DAILY@1730 #30 cap Transmission Status: Received by [facility] Atorvastatin Calcium [Lipitor] 20 mg PO QHS #30 tab Transmission Status: Received by [facility] Primary Care Physician: Billy De Santiago MD [Primary Care Provider] - Please follow up with your Primary Care Physician in: 2 weeks Minutes spent on discharge:: 35 Medical Necessity - Tobacco Use Smoking Status: Never smoker Tobacco Use: Non-smoker Meaningful Use Info Meaningful Use Diagnoses (Choose all that apply): None applicable Code Visit Inpatient E&M: 05106 Subs Hosp L3
--- NOTE | 2019-04-12 14:51 | CASEMGMT ---
TANYA DE SANTIAGO Discharge Follow-Up Phone Call. Lace: 12 Strata: 4 Discharge Date: 04/11/19 Adm Dx: Acute Metabolic Encephalopathy Attempted discharge follow-up phone call. No answer. Message left for pt to return call to MANUFACTURING SHIFT SUPERVISOR CM, Mireya Agrawal, if he has any questions about the discharge instructions, medications, or appts. Phone number provided. Erick DOUGLAS RN, CM
== END 2019-04-11 18:16 | disposition home or self-care (01) | DRG 305 ==
LOC: ED 11:42 → PCU 12:23
PROVIDERS: Family Medicine; Admitting Provider Internal Medicine; Emergency Provider Emergency Medicine; Family Provider Family Medicine; PCP Family Medicine; Visit Provider Internal Medicine
DX: I16.1 Hypertensive emergency (principal); R55 Syncope and collapse; G43.909 Migraine, unspecified, not intractable, without status migrainosus; E78.5 Hyperlipidemia, unspecified; E66.9 Obesity, unspecified; E11.9 Type 2 diabetes mellitus without complications; N40.1 Benign prostatic hyperplasia with lower urinary tract symptoms; Z68.33 Body mass index [BMI] 33.0-33.9, adult; R41.0 Disorientation, unspecified; R47.81 Slurred speech; I10 Essential (primary) hypertension; R35.1 Nocturia; D72.829 Elevated white blood cell count, unspecified; T38.0X5A Adverse effect of glucocorticoids and synthetic analogues, initial encounter; G89.29 Other chronic pain; M54.5 Low back pain; R35.0 Frequency of micturition; Z86.73 Personal history of transient ischemic attack (TIA), and cerebral infarction without residual deficits; F32.9 Major depressive disorder, single episode, unspecified; F41.9 Anxiety disorder, unspecified; R10.9 Unspecified abdominal pain
CPT/HCPCS: 36415; 70450; 70496; 70498; 70551; 71045; 74176; 78452; 80048; 80053; 80061; 80307; 81001; 82962; 83036; 84153; 84484; 85025; 85610; 85730; 87086; 92523; 93005; 93017; 93306; 94762; 95819; 97116; 97162; 97530; 97802; 97803; 99285; A9500; J7030; J7040; J7050; Q9957; Q9967; A4216; J2405; J2785

== ENCOUNTER 2020-07-30 10:29 | Emergency (ER) | payer BC, SELFPAY ==
[2019-04-11 08:59] VITALS: BMI 33.0
[2020-07-30 10:30] VITALS: BP 191/110; PULSE 73; RESP 22; TEMP 36.8; O2SAT 97; BMI 33.4
--- NOTE | 2020-07-30 10:46 | EKG12_ITS ---
Test Reason : Blood Pressure : / mmHG Vent. Rate : 071 BPM Atrial Rate : 071 BPM P-R Int : 158 ms QRS Dur : 108 ms QT Int : 392 ms P-R-T Axes : 012 -03 011 degrees QTc Int : 425 ms Normal sinus rhythm Normal ECG Confirmed by SARA SHELBY, IVAN ([id number]), design editor MARYLU GUTHRIE ([id number]) on 07/31/2020 1:52:19 PM Referred By: LUCIANO Confirmed By:IVAN RUIZ MD
--- NOTE | 2020-07-30 10:57 | ED.DCSUM_ITS ---
History of Present Illness Chief Complaint: Dizziness Informant: Patient Onset: Yesterday - At approximately 10 AM Context: Sudden Onset Timing: Continuous Quality: Sense of not feeling well, dyspnea, chest pain Location: Anterior central Current Severity: Mild Maximum Severity: Moderate Worsened by: Nothing Relieved by: Nothing Associated Symptoms: No cough, fever chills or exposure to anyone ill Narrative: Patient is a middle-age male with multiple medical problems who presents with not feeling well. Onset of symptoms at approximately 10 AM yesterday. He does complain of pain above his right brow for the past 3 months. He denies change in vision double vision etc. He states that he has by ocular blurred vision. He has not checked his blood sugar recently. He denies polyuria polydipsia. He denies fever, chills night sweats. Denies rhinorrhea, postnasal drainage or congestion. He denies sore throat. He denies change in taste or smell. Nothing exacerbates, alleviates or precipitates the chest discomfort. He has not noted any swelling of his lower extremities. He states he is able to lie flat in bed. He denies abdominal pain. He denies nausea, vomiting or diarrhea. He denies hematemesis, melena hematochezia. He denies urologic symptoms. Prior similar symptoms: No Recent Illness/Hospitalization: No - Past Medical History (1) BPH (benign prostatic hyperplasia) Status: Acute (2) Diabetes mellitus type 2 in obese Status: Acute (3) Headache Status: Acute (4) Hypertensive emergency Status: Acute (5) Anxiety and depression Status: Chronic (6) Grade II diastolic dysfunction Status: Chronic (7) Iron deficiency anemia Status: Chronic (8) Migraine Status: Chronic (9) Obesity (BMI 30.0-34.9) Status: Chronic (10) Sleep disorder breathing Status: Chronic (11) TIA (transient ischemic attack) Status: Chronic (12) Noncompliance with medication regimen Status: Suspected Past Medical History - Allergies and Home Meds Allergies/Adverse Reactions: Allergies iohexol [From Omnipaque] Allergy (Verified 04/09/19 07:54) Rash Primary Care Physician: Billy De Santiago MD [Primary Care Provider] - Prior records reviewed: Yes Surgical History: appendectomy, - - Cervical fusion, prostate biopsy, BL TKR. Lives: Spouse/ Significant Other Smoking Status: Never smoker Alcohol: None Drugs: None - Family History Maternal Family History: Reports: - - His mother of a brain aneurysm, age 65 Paternal Family History: Reports: Cancer - Fathered with history of cancer, bone and lung, age 75 Review of Systems General: Reports: Malaise. Denies: Chills, Fever, Subjective, Sweats, Weight loss Eyes: Reports: Blurred Vision - bilaterally. Denies: Visual changes - bilaterally, Diplopia ENT: Reports: - - See HPI. He denies ringing in his ears or decreased hearing.. Denies: Bilateral ear pain, Rhinorrhea, Sore throat Cardiovascular: Reports: Chest pain. Denies: Palpitations, Heart racing Respiratory: Reports: Dyspnea. Denies: Cough, Sputum, Dyspnea on exertion, Orthopnea, Paroxysmal nocturnal dyspnea Gastrointestinal: Denies: Abdominal pain, Nausea, Vomiting, Diarrhea, Constipation, Melena, Hematochezia Genitourinary: Denies: Dysuria, Hematuria, Frequency Musculoskeletal: Denies: Myalgias, Arthralgias, Neck pain, Back pain, Swelling, Extremity Pain Skin: Denies: Rash, Wounds Neurological: Reports: Headache. Denies: Weakness, Parasthesia, Numbness Psych: Reports: Depression Endocrine: Denies: Polyuria, Polydipsia Hematologic: Denies: Easy bruising, Easy bleeding Physical Exam Vital Signs/Narrative: Vital Signs Temp Pulse Resp BP Pulse Ox 07/30/20 10:30 98.2 F 73 22 H 191/110 H 97 Inital Vital Signs reviewed: Yes General: Well nourished, Well developed, Obese, No Acute Distress Head: Normocephalic, Atraumatic Eyes: Perrl, EOMI. Negative for: Pale conjunctiva, Scleral icterus ENT: No rhinorrhea, TM's clear. Negative for: Dry mucous membranes, Nasal congestion, Sinus tenderness Neck: Supple, Nontender, No lymphadenopathy, No JVD Cardiovascular: Regular rate, Regular rhythm, No murmurs, Normal S1, Normal S2 Respiratory: No distress, CTA bilaterally, Chest nontender Abdomen: Soft, Nontender, Nondistended, Normal bowel sounds Back: Nontender, Normal Inspection. Negative for: CVA tenderness Extremities: Nontender, Edema - 1 to 2 mm of pitting edema Skin: Normal color, No rash Neurological: Alert, Oriented x3, Cranial nerves II-XII grossly intact, Normal Strength, Normal Sensation Psychological: Depressed Diagnostic/Tx/Re-eval Chest X-Ray - ED: 1 View, Read by ED Physician, Normal, Heart, Mediastinum, Bony Structures - Hardware noted lower cervical spine., No Acute Disease, Chronic Changes, - - X-ray was interpreted by me at 1114. Impressions Chest X-Ray 07/30/20 11:05 IMPRESSION: No acute abnormality is seen. Mild scarring at the lung bases. Electronically Signed: Simón Ro, at 11:21 EST , Service support , 07/30/20 11:05 Chest 1 View (Portable) [RAD] Stat Laboratory Results 07/30/20 07/30/20 11:00 11:00 WBC 7.5 RBC 5.75 Hgb 15.8 Hct 49.7 MCV 86.4 MCH 27.5 MCHC 31.8 L RDW Std Deviation 40.5 RDW Coeff of Melanie 12.8 Plt Count 302 MPV 9.8 Immature Gran % (Auto) 0.400 Neut % (Auto) 51.2 Lymph % (Auto) 38.4 [place] % (Auto) 7.7 Eos % (Auto) 1.9 Baso % (Auto) 0.4 Absolute Neuts (auto) 3.9 Absolute Lymphs (auto) 2.89 Nucleated RBC % 0 ESR 5 Sodium 137 Potassium 4.5 Chloride 107 Carbon Dioxide 26.0 Anion Gap 4 L BUN 20 H Creatinine 1.03 Estim Creat Clear Calc 89.78 Est GFR (MDRD) Af Amer 95 Est GFR (MDRD) Non-Af 79 BUN/Creatinine Ratio 19.4 Glucose 143 H Calcium 9.0 Troponin I 0.019 - EKG Initial EKG Interpretation: Sinus Rhythm - Normal sinus rhythm with a ventricular rate of 71. TX interval is 158 ms. QRS duration 100 ms. QT duration 392 ms. [place] is normal. The EKG is normal. - Medical Decision Making Patient with very vague symptoms. Will rule out atypical cardiac etiology, pneumonia, possible early viral infection Patient was informed that his blood results were essentially unremarkable other than slightly elevated glucose of 140. He does feel better after Toradol. There is no evidence of vasculitis. Patient was given excuse for work that included today and for tomorrow. Suspect he has a viral infection. ED Disposition - Plan for ED Patient: Disposition: Home or Assisted Living Diagnosis: Acute viral syndrome, Cephalgia Instructions: ED Viral Syndrome Referrals: Billy De Santiago MD [Primary Care Provider] - 3-5 Days if not improving
--- NOTE | 2020-07-30 11:05 | RAD_ITS ---
STUDY: X-RAY CHEST REASON FOR EXAM: Male, 60 years old. Chest pain and dyspnea, dizziness, headache, shortness of breath TECHNIQUE: Single AP portable view of the chest. COMPARISON: Comparison is made with prior study dated 04/09/2019. FINDINGS: EKG electrodes are seen. Stable mild increased linear markings at the lung bases suggests mild bibasilar scarring. There is no demonstrated pleural abnormality. Normal size heart. Normal mediastinum and dain. Normal visualized pulmonary arteries. Normal visualized aortic arch and descending thoracic aorta. There are diffuse degenerative changes of the visualized thoracic spine. Prior fusion in the lower cervical spine. Normal visualized ribs, clavicles, and shoulders. There is no demonstrated abnormality of the visualized soft tissue structures of the upper abdomen. RAD/Chest 1 View (Portable) IMPRESSION: No acute abnormality is seen. Mild scarring at the lung bases. Electronically Signed: Simón Ro, at 11:21 EST , Service support ,
[2020-07-30 11:15] VITALS: BP 174/112
[2020-07-30 11:27] LABS: Anion Gap 4 (5-15); BUN 20 mg/dL (7-18); BUN/Creat Ratio 19.4 RATIO (10-20); Chloride 107 mmol/L (98-107); Creatinine, Serum 1.03 mg/dL (0.70-1.30); EST Glomerular Filtration Rate 79 mL/min (>60); Est Glom Filt Rate - Afr Amer 95 mL/min (>60); Estimated Creatinine Clearance 89.78 ml/min; Glucose 143 mg/dL (74-106); Potassium 4.5 mmol/L (3.5-5.1); Sodium Level 137 mmol/L (136-145)
[2020-07-30 11:37] LABS: Erythrocyte Sedimentation Rate 5 mm/hr (0-20)
[2020-07-30 11:39] LABS: Absolute Lymphocyte Count 2.89 X10^3/uL (0.83-4.51); Absolute Neutrophil Count 3.9 X10^3/uL (2.0-7.7); Basophil# 0.03 X10^3/uL; Basophil% 0.4 % (0-1); Eosinophil# 0.14 X10^3/uL; Eosinophils% 1.9 % (0-5); Hematocrit 49.7 % (40-54); Hemoglobin 15.8 g/dL (13.0-16.5); Lymphocyte # 2.89 X10^3/ul (4.0); Lymphocyte % 38.4 % (19-41); Mean Corp Hgb Conc 31.8 g/dL (32-36); Mean Corpuscular Hgb 27.5 pg (27.0-32.0); Mean Corpuscular Volume 86.4 fL (80-94); Mean Platelet Vol. 9.8 fl (6.2-12.0); Monocyte# 0.58 X10^3/uL; Monocyte% 7.7 % (0-10); NRBC Flagged by Analyzer 0 % (0-5); Neutrophil # 3.86 X10^3/uL (2.7-7.7); Neutrophil % 51.2 % (47-70); Platelet Count 302 K/mm3 (150-450); RBC Distribution Width CV 12.8 % (11.6-14.6); RBC Distribution Width SD 40.5 fl (35.1-43.9); Red Blood Count 5.75 M/mm3 (4.6-6.2); White Blood Count 7.5 K/mm3 (4.4-11.0)
[2020-07-30 12:50] VITALS: BP 180/103; PULSE 70; RESP 19; O2SAT 98
[2020-07-30 12:52] VITALS: BP 180/103; BP 193/105; BP 194/105; PULSE 67; PULSE 70; PULSE 74
[2020-07-30 14:00] VITALS: BP 167/97; PULSE 70; RESP 16; O2SAT 99
[2020-07-30] MEDS: Ketorolac 15 MG/ML Vial IV (14:26)
[2020-07-30 15:28] VITALS: BP 164/86; PULSE 66; RESP 17; O2SAT 99
== END 2020-07-30 15:29 | disposition home or self-care (01) ==
PROVIDERS: Emergency Provider Emergency Medicine; PCP Family Medicine
DX: B34.9 Viral infection, unspecified (principal); R51.9 Headache, unspecified; N40.0 Benign prostatic hyperplasia without lower urinary tract symptoms; E11.9 Type 2 diabetes mellitus without complications; E66.9 Obesity, unspecified; Z80.1 Family history of malignant neoplasm of trachea, bronchus and lung; Z86.73 Personal history of transient ischemic attack (TIA), and cerebral infarction without residual deficits; F32.9 Major depressive disorder, single episode, unspecified; F41.9 Anxiety disorder, unspecified; D50.9 Iron deficiency anemia, unspecified; Z68.30 Body mass index [BMI] 30.0-30.9, adult
CPT/HCPCS: 71045; 80048; 84484; 85025; 85652; 93005; 96374; 99284; A4216

== ENCOUNTER 2021-01-20 06:09 | Emergency (ER) | payer BC, SELFPAY ==
[2021-01-20 06:10] VITALS: BP 191/101; PULSE 83; RESP 18; TEMP 36.5; O2SAT 97; BMI 33.0
--- NOTE | 2021-01-20 06:25 | CT_ITS ---
HISTORY: Pain ADDITIONAL HISTORY: None provided. EXAMINATION/TECHNIQUE: CT Abdomen And Pelvis W/O Contrast Injection Enteric contrast was not given. Number of images including paperwork: 532. A radiation dose optimization technique was used for this scan. COMPARISON: 04/09/2019 FINDINGS: Evaluation of the abdominopelvic organs is limited in the absence of contrast. LOWER THORAX: No consolidation or pleural effusion. LIVER: Hepatic steatosis, somewhat inhomogeneous. GALLBLADDER: No radiopaque calculi. BILE DUCTS: No significant biliary dilatation. SPLEEN: Unremarkable. PANCREAS: Unremarkable. ADRENAL GLANDS: Unremarkable. KIDNEYS/URETERS: Left renal cyst for which no follow-up is warranted for consensus guidelines. Punctate nonobstructing left renal calculus. BOWEL: No bowel obstruction. No significant bowel wall thickening. No localized inflammation. Colonic diverticulosis. APPENDIX: No evidence of appendicitis. FREE FLUID: No significant free fluid. FREE AIR: None. LYMPH NODES: No pathologic appearing adenopathy. PERITONEUM, RETROPERITONEUM AND MESENTERY: Otherwise unremarkable. VASCULATURE: Atherosclerotic calcification. ABDOMINAL WALL: Unremarkable. PELVIS: Unremarkable bladder. Enlarged prostate. OSSEOUS AND SOFT TISSUE STRUCTURES: No acute skeletal findings. Degenerative changes. CT/Abdomen/Pelvis without Cont IMPRESSION: No acute abdominopelvic abnormality. Colonic diverticulosis. Nonobstructing left renal calculus. Additional findings above. Individualized dose optimization techniques were used for this CT. at 0740 Reported and signed by: Deepali Donato MD Electronically Signed: Deepali Donato MD at 7:40 EDT Tel , Service support ,
--- NOTE | 2021-01-20 06:25 | EKG12_ITS ---
Test Reason : ABD PAIN Blood Pressure : / mmHG Vent. Rate : 080 BPM Atrial Rate : 080 BPM P-R Int : 156 ms QRS Dur : 116 ms QT Int : 368 ms P-R-T Axes : 055 016 024 degrees QTc Int : 424 ms Normal sinus rhythm Normal ECG Confirmed by ZEUS SHELBY, DANNY ([id number]), mapping editor FIDEL BERMAN ([id number]) on 01/22/2021 8:18:36 AM Referred By: MIRA Confirmed By:DANNY SCHULZ MD
--- NOTE | 2021-01-20 06:33 | ED.VIS.GI ---
HPI <Dr. Feng Turner DO - Last Filed: 01/20/21 08:07> HPI - GI History of Present Illness Chief Complaint: Abd Pain Informant: patient Abdominal Pain/Flank Pain Onset: Weeks (3) Context: Gradual Onset Timing: Continuous Quality: Sharp Location: RUQ and Right Flank Worsened by: Nothing Relieved by: - (Sleep) Nausea/Vomiting/Emesis GI Symptom: Positive for Nausea; Negative for Vomiting Diarrhea/Melena/Hematochezia GI Symptom: Negative for Diarrhea, Melena and Hematochezia Associated Symptoms Associated Symptoms: Positive for Frequency; Negative for Dysuria and Hematuria Narrative Narrative: Patient presents with right-sided abdominal and flank pain that is been getting worse over the past 2 to 3 weeks. Patient describes the pain as sharp and aching. Patient states the pain is localized to the right flank area and radiates to his right shoulder area. Patient also states the pain radiates into his right lower abdomen. Patient states it gets better with sleep. Patient admits to nausea but denies any vomiting. Patient denies any diarrhea, melena, or hematochezia. Patient denies any dysuria but admits to urinary frequency. [facility] <Dr. Feng Turner DO - Last Filed: 01/20/21 08:07> [facility] Medical History TIA (transient ischemic attack) Home Medications citalopram 40 mg PO DAILY 07/05/16 [History Last Taken 08/07/18] amlodipine 10 mg PO DAILY 12/29/17 [History Last Taken 08/07/18] lisinopril [Zestril] 40 mg PO DAILY 08/08/18 [History Last Taken 08/07/18] metoprolol tartrate 50 mg PO BID #60 tablet 08/10/18 [Rx Last Taken Unknown] atorvastatin 20 mg PO QHS #30 tab 04/11/19 [Rx Last Taken Unknown] tamsulosin 0.4 mg PO DAILY@1730 #30 cap 04/11/19 [Rx Last Taken Unknown] metformin 1,000 mg PO DAILY 01/20/21 [History Last Taken Unknown] naproxen 500 mg PO BID PRN #20 tab 01/20/21 [Rx Last Taken Unknown] Allergy/AdvReac Type Severity Reaction Status Date / Time iohexol [From oneDrum] Allergy Rash Verified 01/20/21 06:10 Surgical History History of appendectomy History of knee joint replacement History of tonsillectomy Social History Smoking Status: Never smoker ROS <Dr. Feng Turner DO - Last Filed: 01/20/21 08:07> ROS ED Constitutional Constitutional ED: Reports chills and subjective; Denies fever(s) ENT ENT ED: Denies rhinorrhea or sore throat Cardiovascular Cardiovascular: Denies chest pain or palpitations Respiratory/Chest Respiratory/Chest: Reports cough and dyspnea Gastrointestinal Gastrointestinal: Reports abdominal pain and nausea; Denies vomiting Genitourinary Genitourinary ED: Reports urinary frequency; Denies dysuria or hematuria Musculoskeletal Musculoskeletal: Reports back pain and neck pain Integumentary Denies abscess or rash Neurologic Neurologic: Denies headache(s) or weakness Allergic/Immunologic Allergic/Immunologic ED: Denies mouth swelling or urticaria EXAM <Dr. Feng Turner DO - Last Filed: 01/20/21 08:07> Physical Exam Const Vital Signs: 01/20/21 06:10 01/20/21 08:10 Temperature 97.7 F L Temperature Source Temporal Pulse Rate 83 77 Respiratory Rate 18 16 Blood Pressure 191/101 H 183/98 H Blood Pressure Mean 131 126 Pulse Ox 97 98 Oxygen Delivery Method Room Air Positive well nourished, well developed and obese General Appearance ED: well developed Nutritional Appearance: obese HEENT Reports moist mucous membranes Neck supple and no JVD Resp normal respiratory effort and clear to auscultation bilaterally Cardio regular rate and regular rhythm GI Auscultation: normoactive bowel sounds Palpation: soft and tender LLQ, RLQ, LUQ and RUQ; Negative for guarding or rebound tenderness present Neuro CN's II-XII intact bilaterally, moves all extremities and no sensory deficits noted Sensorium / Orientation: alert, oriented to person, oriented to place and oriented to time <Dr. Timothy Stanton MD - Last Filed: 01/20/21 08:53> Physical Exam Const Vital Signs: 01/20/21 06:10 01/20/21 08:10 Temperature 97.7 F L Temperature Source Temporal Pulse Rate 83 77 Respiratory Rate 18 16 Blood Pressure 191/101 H 183/98 H Blood Pressure Mean 131 126 Pulse Ox 97 98 Oxygen Delivery Method Room Air [facility] <Dr. Feng Turner, DO - Last Filed: 01/20/21 08:07> [facility] Narrative Medical decision making narrative: EKG was obtained. On my interpretation, it showed a normal sinus rhythm with a rate of 80. MA interval, QRS interval, and QTc intervals were all normal. [place] was normal. There are no acute ST or T wave changes. CBC and comprehensive metabolic profile were within normal limits. Troponin was normal. Urinalysis does not show any evidence of urinary tract infection. CT scan of the abdomen and pelvis was obtained. There is no acute abnormality noted. This was interpreted by the radiologist and reviewed by myself. Patient states he is not feeling any better. Patient was given Benadryl and Solu-Medrol. CTA of the chest was ordered. This is pending. Care of the patient will be signed out to the oncoming physician. Lab Data Attestation: I reviewed the patient's lab results. Labs: Laboratory Results - last 24 hr 01/20/21 01/20/21 01/20/21 06:30 06:30 06:45 WBC 7.6 RBC 5.58 Hgb 15.8 Hct 47.5 MCV 85.1 MCH 28.3 MCHC 33.3 RDW Std Deviation 38.4 RDW Coeff of Melanie 12.3 Plt Count 302 MPV 9.2 Immature Gran % (Auto) 0.400 Neut % (Auto) 53.3 Lymph % (Auto) 33.6 [place] % (Auto) 8.4 Eos % (Auto) 3.9 Baso % (Auto) 0.4 Absolute Neuts (auto) 4.1 Absolute Lymphs (auto) 2.57 Nucleated RBC % 0 Sodium 135 L Potassium 4.1 Chloride 103 Carbon Dioxide 24.0 Anion Gap 8 BUN 22 H Creatinine 0.94 Estim Creat Clear Calc 98.38 Est GFR (MDRD) Af Amer 106 Est GFR (MDRD) Non-Af 87 BUN/Creatinine Ratio 23.4 H Glucose 217 H Calcium 8.6 Total Bilirubin 0.60 AST 18 ALT 40 Alkaline Phosphatase 152 H Troponin I < 0.015 Total Protein 6.9 Albumin 3.4 Globulin 3.5 Albumin/Globulin Ratio 1.0 Urine Color Yellow Urine Clarity Clear Urine pH 5.0 Ur Specific [place] 1.025 Urine Protein 15 H Urine Glucose (UA) 1000 H Urine Ketones 15 H Urine Occult Blood 10 H Urine Nitrite Negative Urine Bilirubin Negative Urine Urobilinogen Normal Ur Leukocyte Esterase Negative Urine RBC 0-5 SEEN Urine WBC 0 SEEN Ur Squamous Epith Cells 0 SEEN Urine Bacteria 0 SEEN Urine Mucus 0 SEEN Radiography Diagnostic Testing: Radiology Impression Abdomen/Pelvis CT 01/20/21 06:25 IMPRESSION: No acute abdominopelvic abnormality. Colonic diverticulosis. Nonobstructing left renal calculus. Additional findings above. Individualized dose optimization techniques were used for this CT. at 0740 Reported and signed by: Deepali Donato MD Electronically Signed: Deepali Donato MD at 7:40 EDT Tel , Service support , Chest CTA 01/20/21 07:53 IMPRESSION: Normal CTA chest examination, without a demonstrated pulmonary embolism or arterial dissection. Electronically Signed: Simón Ro MD at 8:30 EDT , Service support , EKG Initial EKG: Attestation: I personally reviewed and interpreted this EKG as follows: Interpretation: Sinus Rhythm (80) and No Acute Injury Pattern <Dr. Timothy Stanton MD - Last Filed: 01/20/21 08:53> [facility] Narrative Medical decision making narrative: CTA of the chest was unremarkable. I did give him a dose of Dilaudid for pain control. I do not see any acute causes for the patient's pain at this time. I will send him home with analgesia. He will need to follow-up with his PCP. Lab Data Labs: Laboratory Results - last 24 hr 01/20/21 01/20/21 01/20/21 06:30 06:30 06:45 WBC 7.6 RBC 5.58 Hgb 15.8 Hct 47.5 MCV 85.1 MCH 28.3 MCHC 33.3 RDW Std Deviation 38.4 RDW Coeff of Melanie 12.3 Plt Count 302 MPV 9.2 Immature Gran % (Auto) 0.400 Neut % (Auto) 53.3 Lymph % (Auto) 33.6 [place] % (Auto) 8.4 Eos % (Auto) 3.9 Baso % (Auto) 0.4 Absolute Neuts (auto) 4.1 Absolute Lymphs (auto) 2.57 Nucleated RBC % 0 Sodium 135 L Potassium 4.1 Chloride 103 Carbon Dioxide 24.0 Anion Gap 8 BUN 22 H Creatinine 0.94 Estim Creat Clear Calc 98.38 Est GFR (MDRD) Af Amer 106 Est GFR (MDRD) Non-Af 87 BUN/Creatinine Ratio 23.4 H Glucose 217 H Calcium 8.6 Total Bilirubin 0.60 AST 18 ALT 40 Alkaline Phosphatase 152 H Troponin I < 0.015 Total Protein 6.9 Albumin 3.4 Globulin 3.5 Albumin/Globulin Ratio 1.0 Urine Color Yellow Urine Clarity Clear Urine pH 5.0 Ur Specific [place] 1.025 Urine Protein 15 H Urine Glucose (UA) 1000 H Urine Ketones 15 H Urine Occult Blood 10 H Urine Nitrite Negative Urine Bilirubin Negative Urine Urobilinogen Normal Ur Leukocyte Esterase Negative Urine RBC 0-5 SEEN Urine WBC 0 SEEN Ur Squamous Epith Cells 0 SEEN Urine Bacteria 0 SEEN Urine Mucus 0 SEEN Radiography Diagnostic Testing: Radiology Impression Abdomen/Pelvis CT 01/20/21 06:25 IMPRESSION: No acute abdominopelvic abnormality. Colonic diverticulosis. Nonobstructing left renal calculus. Additional findings above. Individualized dose optimization techniques were used for this CT. at 0740 Reported and signed by: Deepali Donato MD Electronically Signed: Deepali Donato MD at 7:40 EDT Tel , Service support , Chest CTA 01/20/21 07:53 IMPRESSION: Normal CTA chest examination, without a demonstrated pulmonary embolism or arterial dissection. Electronically Signed: Simón Ro MD at 8:30 EDT , Service support , Discharge Plan Triage Chief Complaint: Abd Pain Other Complaint: Shortness of Breath ED Provider: Timothy Stanton Dx/Rx/DC Orders Clinical Impression: Acute right flank pain Instructions: ED Flank Pain, Uncertain Cause Prescriptions: New naproxen 500 MG tablet 500 mg PO BID PRN Qty: 20 RF: 0 No Action citalopram 40 MG tablet 40 mg PO DAILY RF: 0 amlodipine 10 MG tablet 10 mg PO DAILY RF: 0 lisinopril [Zestril] 40 MG tablet 40 mg PO DAILY RF: 0 metoprolol tartrate 50 MG tablet 50 mg PO BID Qty: 60 RF: 1 atorvastatin 20 MG tablet 20 mg PO QHS Qty: 30 RF: 0 tamsulosin 0.4 MG capsule 0.4 mg PO DAILY@1730 Qty: 30 RF: 0 metformin 500 mg Tablet 1,000 mg PO DAILY RF: 0 Primary Care Provider: Billy De Santiago Referrals: Billy De Santiago MD [Primary Care Provider] - Disposition Disposition: Home, self care
[2021-01-20 06:37] LABS: Absolute Lymphocyte Count 2.57 X10^3/uL (0.83-4.51); Absolute Neutrophil Count 4.1 X10^3/uL (2.0-7.7); Basophil# 0.03 X10^3/uL; Basophil% 0.4 % (0-1); Eosinophils% 3.9 % (0-5); Hematocrit 47.5 % (40-54); Hemoglobin 15.8 g/dL (13.0-16.5); Lymphocyte # 2.57 X10^3/ul (0.83-4.51); Lymphocyte % 33.6 % (19-41); Mean Corp Hgb Conc 33.3 g/dL (32-36); Mean Corpuscular Hgb 28.3 pg (27.0-32.0); Mean Corpuscular Volume 85.1 fL (80-94); Mean Platelet Vol. 9.2 fl (6.2-12.0); Monocyte# 0.64 X10^3/uL; Monocyte% 8.4 % (0-10); NRBC Flagged by Analyzer 0 % (0-5); Neutrophil # 4.07 X10^3/uL (2.7-7.7); Neutrophil % 53.3 % (47-70); Platelet Count 302 K/mm3 (150-450); RBC Distribution Width CV 12.3 % (11.6-14.6); RBC Distribution Width SD 38.4 fl (35.1-43.9); Red Blood Count 5.58 M/mm3 (4.6-6.2); White Blood Count 7.6 K/mm3 (4.4-11.0)
[2021-01-20] MEDS: 0.9% Normal Saline 1,000 ML 1000 ML IV (06:39)
[2021-01-20] MEDS: Ondansetron 4 MG/2 ML Vial IV (06:39)
[2021-01-20] MEDS: Morphine 4 MG/ML Syringe IV (06:39)
[2021-01-20 06:52] LABS: Bacteria 0 SEEN /hpf (None Seen); Mucous, Urine 0 SEEN /hpf (<or=2+); Squamous Epithelial Cells - UA 0 SEEN /hpf (0-5); White Blood Cells 0 SEEN /hpf (0-5)
[2021-01-20 06:53] LABS: Color, Urine Yellow (Yellow); Glucose, Dipstick 1000 mg/dl (Normal); Ketone-Dipstick 15 mg/dl (Negative); Leukocyte Esterase-Dipstick Negative /ul (Negative); Nitrite-Dipstick Negative (Negative); Occult Blood-Urine 10 /ul (Negative); Protein-Dipstick 15 mg/dl (Negative); Specific Gravity, Urine 1.025 (1.002-1.030); Urine Bilirubin Dipstick Negative (Negative); Urine Clarity Clear (Clear); Urine Urobilinogen Normal (Normal)
[2021-01-20 06:58] LABS: Red Blood Cells-Urine 0-5 SEEN /hpf (0-5)
[2021-01-20 07:05] LABS: AST(SGOT) 18 U/L (15-37); Alanine Aminotransfer ALT/SGPT 40 U/L (16-61); Albumin, Serum 3.4 g/dL (3.2-5.0); Alkaline Phosphatase 152 U/L (45-117); Anion Gap 8 (5-15); BUN 22 mg/dL (7-18); BUN/Creat Ratio 23.4 RATIO (10-20); Calcium,Total 8.6 mg/dL (8.5-10.1); Chloride 103 mmol/L (98-107); Creatinine, Serum 0.94 mg/dL (0.70-1.30); EST Glomerular Filtration Rate 87 mL/min (>60); Est Glom Filt Rate - Afr Amer 106 mL/min (>60); Estimated Creatinine Clearance 98.38 ml/min; Globulin 3.5 g/dL (2.2-4.2); Glucose 217 mg/dL (74-106); Potassium 4.1 mmol/L (3.5-5.1); Protein, Total 6.9 g/dL (6.4-8.2); Sodium Level 135 mmol/L (136-145)
--- NOTE | 2021-01-20 07:53 | CT_ITS ---
STUDY: CTA CHEST REASON FOR EXAM: Male, 60 years old. Chest pain. Right lower quadrant pain and nausea. RADIATION DOSAGE (If Supplied By Facility): CTDIvol = ( 14.8 ) mGy, DLP = ( 504.57 ) mGycm TECHNIQUE: The examination was performed with the intravenous administration of IV 100mL Isovue-370. Post-processing of the angiographic images was performed, with multiplanar reformation and 3D reconstruction. Individualized dose optimization techniques were used for this CT. COMPARISON: Comparison is made with prior study dated 12/29/2017. FINDINGS: Normal enhancement of the main pulmonary artery and right and left pulmonary arteries. Normal enhancement of the bilateral peripheral pulmonary arteries. There is no demonstrated pulmonary embolism. Normal thoracic aorta and visualized great vessels. There is no demonstrated aortic dissection. Normal heart and pericardium. Normal mediastinum. Normal hilar regions. Normal visualized trachea and bronchi. The lungs are well expanded. Normal pulmonary parenchyma. Normal pleura. Normal chest wall structures. Normal osseous structures. There is a small hiatal hernia. CT/CTA Chest W/WO Contrast IMPRESSION: Normal CTA chest examination, without a demonstrated pulmonary embolism or arterial dissection. Electronically Signed: Simón Ro MD at 8:30 EDT , Service support ,
[2021-01-20] MEDS: DiphenhydrAMINE 50 MG/ML Syringe 25 MG IV (07:58)
[2021-01-20] MEDS: MethylPREDNISolone 125 MG/2 ML Vial 60 MG IV (07:58)
[2021-01-20 08:10] VITALS: BP 183/98; PULSE 77; RESP 16; O2SAT 98
[2021-01-20] MEDS: HYDROmorphone 1 MG/ML Syringe IV (08:54)
[2021-01-20 09:43] VITALS: BP 160/75; PULSE 72; RESP 15; O2SAT 96
== END 2021-01-20 09:44 | disposition home or self-care (01) ==
PROVIDERS: Emergency Medicine; Emergency Provider Emergency Medicine; PCP Family Medicine
DX: R06.02 Shortness of breath (principal); E66.9 Obesity, unspecified; Z79.84 Long term (current) use of oral hypoglycemic drugs; Z79.899 Other long term (current) drug therapy
CPT/HCPCS: 71275; 74176; 80053; 81001; 84484; 85025; 93005; 96374; 96375; 99283; J7030; Q9967; A4216; J2405

== ENCOUNTER 2021-01-24 12:29 | Emergency (ER) | payer BC, SELFPAY ==
[2021-01-24 12:30] VITALS: BP 188/107; PULSE 109; RESP 18; TEMP 37.1; O2SAT 96; BMI 35.9
--- NOTE | 2021-01-24 13:06 | EKG12_ITS ---
Test Reason : NEURO S SX Blood Pressure : / mmHG Vent. Rate : 088 BPM Atrial Rate : 088 BPM P-R Int : 148 ms QRS Dur : 108 ms QT Int : 360 ms P-R-T Axes : 066 047 051 degrees QTc Int : 435 ms Normal sinus rhythm Normal ECG Confirmed by SARA SHELBY, IVAN ([id number]), editor & co founder FIDEL BERMAN ([id number]) on 01/28/2021 9:28:52 AM Referred By: LUÍS Confirmed By:IVAN RUIZ MD
[2021-01-24 13:24] LABS: Absolute Lymphocyte Count 2.55 X10^3/uL (0.83-4.51); Basophil# 0.04 X10^3/uL; Basophil% 0.5 % (0-1); Eosinophil# 0.21 X10^3/uL; Eosinophils% 2.5 % (0-5); Hematocrit 47.6 % (40-54); Hemoglobin 15.3 g/dL (13.0-16.5); Lymphocyte # 2.55 X10^3/ul (0.83-4.51); Lymphocyte % 30.8 % (19-41); Mean Corp Hgb Conc 32.1 g/dL (32-36); Mean Corpuscular Hgb 27.1 pg (27.0-32.0); Mean Corpuscular Volume 84.2 fL (80-94); Mean Platelet Vol. 9.4 fl (6.2-12.0); Monocyte# 0.47 X10^3/uL; Monocyte% 5.7 % (0-10); NRBC Flagged by Analyzer 0 % (0-5); Neutrophil # 4.98 X10^3/uL (2.7-7.7); Neutrophil % 60.1 % (47-70); Platelet Count 295 K/mm3 (150-450); RBC Distribution Width CV 12.4 % (11.6-14.6); RBC Distribution Width SD 37.5 fl (35.1-43.9); Red Blood Count 5.65 M/mm3 (4.6-6.2); White Blood Count 8.3 K/mm3 (4.4-11.0)
--- NOTE | 2021-01-24 13:30 | RAD_ITS ---
STUDY: X-RAY CHEST REASON FOR EXAM: Male, 60 years old. Patient presents with numbness and tingling in the right arm and right leg. TECHNIQUE: Single AP portable view of the chest. COMPARISON: Comparison is made with prior study dated 07/30/2020. FINDINGS: Hyperinflation. Minimal increased linear markings at the lung bases suggestive of minimal basilar scarring. This is unchanged. There is no demonstrated pleural abnormality. Normal size heart. Normal mediastinum and dain. Normal visualized pulmonary arteries. Normal visualized aortic arch and descending thoracic aorta. There are diffuse degenerative changes of the visualized thoracic spine. The patient is status post fusion and prosthetic disc placement in the lower cervical spine. There is no demonstrated abnormality of the visualized soft tissue structures of the upper abdomen. RAD/Chest 1 View (Portable) IMPRESSION: Hyperinflation. No acute abnormality is seen. Electronically Signed: Simón Ro MD at 14:02 EDT , Service support ,
[2021-01-24 13:38] LABS: D-Dimer Quantitative (DVT/PE) <= 0.27 FEU/ug/m (0.27-0.49)
[2021-01-24 13:42] LABS: AST(SGOT) 10 U/L (15-37); Alanine Aminotransfer ALT/SGPT 34 U/L (16-61); Albumin, Serum 3.1 g/dL (3.2-5.0); Alkaline Phosphatase 134 U/L (45-117); Anion Gap 6 (5-15); BUN 23 mg/dL (7-18); BUN/Creat Ratio 20.5 RATIO (10-20); Bilirubin, Direct 0.07 mg/dL (0.00-0.30); Calcium,Total 8.6 mg/dL (8.5-10.1); Chloride 99 mmol/L (98-107); Creatinine, Serum 1.12 mg/dL (0.70-1.30); EST Glomerular Filtration Rate 71 mL/min (>60); Est Glom Filt Rate - Afr Amer 86 mL/min (>60); Estimated Creatinine Clearance 82.57 ml/min; Globulin 3.7 g/dL (2.2-4.2); Glucose 387 mg/dL (74-106); Lipase 284 U/L (73-393); Protein, Total 6.8 g/dL (6.4-8.2); Sodium Level 133 mmol/L (136-145)
[2021-01-24] MEDS: oxyCODONE 5 MG Tablet PO (13:47)
--- NOTE | 2021-01-24 15:22 | EDS_ITS ---
HPI History of Present Illness Chief Complaint: Numb/Ting Informant: patient Onset/Context/Timing Onset: Month(s) Context: Gradual Onset Timing: Waxes and wanes Current Severity: Moderate Maximum Severity: Moderate Narrative Narrative: Patient complains of pain which he describes as a burning sensation along with numbness and tingling from his right upper chest, down his right torso, including the right arm and leg. Patient does complain of some sharp pain in the right upper chest. Symptoms of been ongoing since at least November. He was seen by nurse practitioner at his PCPs office. He had a right upper quadrant ultrasound. He states the report showed an enlarged liver with a normal gallbladder. Normal right kidney. He states he was told if he did not get any better he should just go the emergency room. [facility] Medical History Benign essential hypertension BPH (benign prostatic hyperplasia) Depression Diabetes Diabetes mellitus type 2 in obese Hyperlipidemia TIA (transient ischemic attack) Home Medications citalopram 40 mg PO DAILY 07/05/16 [History Last Taken 08/07/18] amlodipine 10 mg PO DAILY 12/29/17 [History Last Taken 08/07/18] lisinopril [Zestril] 40 mg PO DAILY 08/08/18 [History Last Taken 08/07/18] metoprolol tartrate 50 mg PO BID #60 tablet 08/10/18 [Rx Last Taken Unknown] atorvastatin 20 mg PO QHS #30 tab 04/11/19 [Rx Last Taken Unknown] tamsulosin 0.4 mg PO DAILY@1730 #30 cap 04/11/19 [Rx Last Taken Unknown] metformin 1,000 mg PO DAILY 01/20/21 [History Last Taken Unknown] naproxen 500 mg PO BID PRN #20 tab 01/20/21 [Rx Last Taken Unknown] oxycodone-acetaminophen [Percocet] 1 tab PO Q6H PRN 3 Days #10 tab 01/24/21 [Rx Last Taken Unknown] Allergy/AdvReac Type Severity Reaction Status Date / Time Iodinated Contrast Media [CT] Allergy Rash Verified 01/24/21 12:33 iohexol [From Omnipaque] Allergy Rash Verified 01/20/21 06:10 Surgical History History of appendectomy History of knee joint replacement History of tonsillectomy Social History Smoking Status: Never smoker ROS ROS ED Constitutional Constitutional ED: Denies chills or fever(s) Eyes Eyes: Denies change in vision ENT ENT ED: Denies sore throat Cardiovascular Cardiovascular: Reports chest pain Respiratory/Chest Respiratory/Chest: Denies cough or dyspnea Gastrointestinal Gastrointestinal: Reports abdominal pain; Denies diarrhea, nausea or vomiting Genitourinary Genitourinary ED: Denies dysuria Musculoskeletal Musculoskeletal: Reports arthralgias; Denies back pain Integumentary Denies rash Neurologic Neurologic: Reports paresthesias and weakness; Denies headache(s) Psychiatric Psychiatric: Denies anxiety or depression Endocrine Endocrinology: Denies polydipsia or polyuria Allergic/Immunologic Allergic/Immunologic ED: Denies urticaria EXAM Physical Exam Const Vital Signs: 01/24/21 12:30 Temperature 98.7 F Temperature Source Temporal Pulse Rate 109 H Respiratory Rate 18 Blood Pressure 188/107 H Blood Pressure Mean 134 Pulse Ox 96 Oxygen Delivery Method Room Air Positive well nourished and well developed General Appearance ED: well developed HEENT Reports normocephalic and head/scalp atraumatic Eyes PERRL and EOMs intact bilaterally Neck supple Chest Wall inspection of chest normal and palpation of chest normal Chest Narrative: No reproducible chest wall pain. Resp normal respiratory effort and clear to auscultation bilaterally Cardio regular rate and regular rhythm GI normal to inspection, nondistended, normoactive bowel sounds Palpation: soft Back/Spine no CVA tenderness Extremity normal to inspection Neuro oriented x3 Sensorium / Orientation: alert and other Patient reports decreased sensation to light touch over the right forearm, but normal sensation over the right upper arm. No other neurologic deficits noted on testing. Motor Exam: strength 5/5 throughout Psych mental status grossly normal Skin no rashes or lesions noted MDM MDM MDM Narrative Medical decision making narrative: Patient given a tab of oxycodone for pain. Lab Data Attestation: I reviewed the patient's lab results. Labs: Laboratory Results - last 24 hr 01/24/21 01/24/21 01/24/21 13:15 13:15 13:15 WBC 8.3 RBC 5.65 Hgb 15.3 Hct 47.6 MCV 84.2 MCH 27.1 MCHC 32.1 RDW Std Deviation 37.5 RDW Coeff of Melanie 12.4 Plt Count 295 MPV 9.4 Immature Gran % (Auto) 0.400 Neut % (Auto) 60.1 Lymph % (Auto) 30.8 [place] % (Auto) 5.7 Eos % (Auto) 2.5 Baso % (Auto) 0.5 Absolute Neuts (auto) 5.0 Absolute Lymphs (auto) 2.55 Nucleated RBC % 0 D-Dimer Quant (PE/DVT) <= 0.27 Sodium 133 L Potassium 4.0 Chloride 99 Carbon Dioxide 28.0 Anion Gap 6 BUN 23 H Creatinine 1.12 Estim Creat Clear Calc 82.57 Est GFR (MDRD) Af Amer 86 Est GFR (MDRD) Non-Af 71 BUN/Creatinine Ratio 20.5 H Glucose 387 H Calcium 8.6 Total Bilirubin 0.50 Direct Bilirubin 0.07 AST 10 L ALT 34 Alkaline Phosphatase 134 H Troponin I < 0.015 Total Protein 6.8 Albumin 3.1 L Globulin 3.7 Lipase 284 Radiography Chest X-Ray - ED: 1 View, Read by ED Physician and Chronic Changes Diagnostic Testing: Radiology Impression Chest X-Ray 01/24/21 13:30 IMPRESSION: Hyperinflation. No acute abnormality is seen. Electronically Signed: Simón Ro MD at 14:02 EDT , Service support , EKG Initial EKG: Interpretation: Sinus Rhythm (Sinus 88. No acute ischemia.) Treatment and Re-Evaluation Comments:: Repeat evaluation patient resting comfortably. He does still complain of burning pain to his right side. He is already on gabapentin. Test results are discussed with him. This time blood work including D-dimer are unremarkable. We did discuss his elevated blood sugar in the 380s. Patient will continue his gabapentin and I will add oxycodone for breakthrough pain. He will follow with his PCP for further testing. Just prior to discharge nursing staff advised the patient's blood pressure was 210/109. Patient be given a dose of clonidine p.o. for blood pressure. Discharge Plan Triage Chief Complaint: Numb/Ting ED Provider: Dorys Colin Dx/Rx/DC Orders Clinical Impression: Neuropathy, Abdominal pain Instructions: ED Neuropathy, Peripheral, ED Unknown Causes of Abdominal ... Prescriptions: New oxycodone-acetaminophen [Percocet] 5-325 mg tablet 1 tab PO Q6H PRN (Reason: pain) 3 Days Qty: 10 RF: 0 No Action citalopram 40 MG tablet 40 mg PO DAILY RF: 0 amlodipine 10 MG tablet 10 mg PO DAILY RF: 0 lisinopril [Zestril] 40 MG tablet 40 mg PO DAILY RF: 0 metoprolol tartrate 50 MG tablet 50 mg PO BID Qty: 60 RF: 1 atorvastatin 20 MG tablet 20 mg PO QHS Qty: 30 RF: 0 tamsulosin 0.4 MG capsule 0.4 mg PO DAILY@1730 Qty: 30 RF: 0 metformin 500 mg Tablet 1,000 mg PO DAILY RF: 0 naproxen 500 MG tablet 500 mg PO BID PRN Qty: 20 RF: 0 Primary Care Provider: Billy De Santiago Referrals: Billy De Santiago MD [Primary Care Provider] - 1 Week Disposition Disposition: Home, self care
[2021-01-24] MEDS: cloNIDine HCl 0.1 MG Tablet PO (16:09)
[2021-01-24 16:11] VITALS: BP 210/109; PULSE 75; RESP 16; O2SAT 95
== END 2021-01-24 16:13 | disposition home or self-care (01) ==
PROVIDERS: Emergency Provider Emergency Medicine; PCP Family Medicine
DX: E11.40 Type 2 diabetes mellitus with diabetic neuropathy, unspecified (principal); R10.9 Unspecified abdominal pain; E78.5 Hyperlipidemia, unspecified; I10 Essential (primary) hypertension; F32.9 Major depressive disorder, single episode, unspecified; N40.0 Benign prostatic hyperplasia without lower urinary tract symptoms; Z86.73 Personal history of transient ischemic attack (TIA), and cerebral infarction without residual deficits; Z79.84 Long term (current) use of oral hypoglycemic drugs
CPT/HCPCS: 71045; 80048; 80076; 83690; 84484; 85025; 85379; 93005; 99285

== ENCOUNTER 2021-02-14 14:29 | Emergency (ER) | payer BC, SELFPAY ==
[2021-02-14 14:29] VITALS: BP 168/120; PULSE 109; RESP 18; TEMP 37.1; O2SAT 96; BMI 32.1
--- NOTE | 2021-02-14 14:45 | EDS_ITS ---
HPI History of Present Illness Chief Complaint: Hyperglycemia Informant: patient Onset/Context/Timing Onset: Weeks Context: Gradual Onset Timing: Continuous Current Severity: Mild Maximum Severity: Mild Narrative Narrative: 60-year-old [id number] diabetic male states his blood sugars have been elevated 1 to 2 weeks. That was as high as 700 last week. He states today there were 400. He spoke to his primary care physician's office who instructed him to come in the emergency department. He denies any fever or chills. He has had nausea but no vomiting. Denies diarrhea. States has been peeing more frequently. He denies any chest pain nor any abdominal pain or any shortness of breath. Prior similar symptoms: Yes Recent Illness/Hospitalization: No PFSH PFS Medical History Benign essential hypertension BPH (benign prostatic hyperplasia) Depression Diabetes Diabetes mellitus type 2 in obese Hyperlipidemia TIA (transient ischemic attack) Home Medications citalopram 40 mg PO DAILY 07/05/16 [History Last Taken 08/07/18] amlodipine 10 mg PO DAILY 12/29/17 [History Last Taken 08/07/18] lisinopril [Zestril] 40 mg PO DAILY 08/08/18 [History Last Taken 08/07/18] metoprolol tartrate 50 mg PO BID #60 tablet 08/10/18 [Rx Last Taken Unknown] atorvastatin 20 mg PO QHS #30 tab 04/11/19 [Rx Last Taken Unknown] tamsulosin 0.4 mg PO DAILY@1730 #30 cap 04/11/19 [Rx Last Taken Unknown] metformin 1,000 mg PO DAILY 01/20/21 [History Last Taken Unknown] naproxen 500 mg PO BID PRN #20 tab 01/20/21 [Rx Last Taken Unknown] oxycodone-acetaminophen [Percocet] 1 tab PO Q6H PRN 3 Days #10 tab 01/24/21 [Rx Last Taken Unknown] Allergy/AdvReac Type Severity Reaction Status Date / Time Iodinated Contrast Media [CT] Allergy Rash Verified 01/24/21 12:33 iohexol [From Omnipaque] Allergy Rash Verified 01/20/21 06:10 Surgical History History of appendectomy History of knee joint replacement History of tonsillectomy Social History Smoking Status: Never smoker ROS ROS ED ROS Narrative Patient recently elevated blood sugars. Complaining of nausea but no vomiting. Also urinary frequency. Review of Systems ROS Unobtainable: Denies due to encephalopathy Constitutional Constitutional ED: Denies fever(s) Eyes Eyes: Reports blurry vision ENT ENT ED: Denies ear pain or sore throat Cardiovascular Cardiovascular: Denies chest pain or palpitations Respiratory/Chest Respiratory/Chest: Denies dyspnea Gastrointestinal Gastrointestinal: Reports nausea; Denies abdominal pain, diarrhea or vomiting Genitourinary Genitourinary ED: Reports urinary frequency; Denies dysuria or hematuria Musculoskeletal Musculoskeletal: Denies myalgias Integumentary Denies rash Neurologic Neurologic: Denies headache(s) Psychiatric Psychiatric: Denies depression Endocrine Endocrinology: Reports polyuria Allergic/Immunologic Allergic/Immunologic ED: Denies urticaria EXAM Physical Exam Narrative Exam Narrative: Middle-age male no acute distress. Vital signs stable initial blood pressure elevated be rechecked. Exam unremarkable. Abdomen soft nontender. Lungs are clear. Heart regular rate and rhythm no murmur rate about 100. Const Vital Signs: 02/14/21 14:29 02/14/21 15:14 02/14/21 15:18 Temperature 98.8 F Temperature Source Temporal Pulse Rate 109 H 87 Respiratory Rate 18 18 Respiratory Effort Normal Respiratory Pattern Normal Blood Pressure 168/120 H 146/95 H Blood Pressure Mean 136 112 Pulse Ox 96 97 Oxygen Delivery Method Room Air Room Air HEENT Reports moist mucous membranes Negative for trauma or tenderness Eyes PERRL and EOMs intact bilaterally Neck no lymphadenopathy, supple and no JVD General: Negative for tenderness Chest Wall inspection of chest normal and palpation of chest normal Resp normal respiratory effort and clear to auscultation bilaterally Cardio regular rhythm and no murmurs Rate: tachycardic GI normal to inspection, nondistended, normoactive bowel sounds, non-tender, non- distended and no masses Auscultation: normoactive bowel sounds Palpation: soft Back/Spine no CVA tenderness Extremity normal to inspection General Extremety ED: Negative for edema or tenderness General Extremity: Negative for edema Neuro oriented x3 and CN's II-XII intact bilaterally Sensorium / Orientation: alert Motor Exam: strength 5/5 throughout Psych mental status grossly normal Skin no rashes or lesions noted and no wounds MDM MDM MDM Narrative Medical decision making narrative: Middle-age male elevated blood sugar rule out DKA. Treated with IV fluids and laboratory work-up. Lab Data Lab results narrative: CBC unremarkable hemoglobin 16. White count 11. Electrolytes sodium 128 consistent with his hyperglycemia blood sugar 403. Creatinine 1.2. Gap is normal at 8. Serum ketones are negative. UA is negative no signs of infection. Patient's labs are consistent with hyperglycemia but not DKA. Repeat exam patient doing well at 4:10 PM. He is comfortable being discharged home. He will be given insulin and is receiving a second liter normal saline currently. He had I discussed the need to check his blood sugar is minimally 3 times a day. Labs: Laboratory Results - last 24 hr 02/14/21 02/14/21 02/14/21 15:00 15:00 15:00 WBC 11.1 H RBC 5.72 Hgb 16.1 Hct 47.2 MCV 82.5 MCH 28.1 MCHC 34.1 RDW Std Deviation 37.1 RDW Coeff of Melanie 12.3 Plt Count 286 MPV 10.1 Immature Gran % (Auto) 0.400 Neut % (Auto) 61.8 Lymph % (Auto) 29.6 [place] % (Auto) 5.9 Eos % (Auto) 1.9 Baso % (Auto) 0.4 Absolute Neuts (auto) 6.9 Absolute Lymphs (auto) 3.30 Nucleated RBC % 0 Sodium 128 L Potassium 4.2 Chloride 93 L Carbon Dioxide 27.0 Anion Gap 8 BUN 24 H Creatinine 1.20 Estim Creat Clear Calc 77.06 Est GFR (MDRD) Af Amer 80 Est GFR (MDRD) Non-Af 66 BUN/Creatinine Ratio 20.0 Glucose 403 H Calcium 8.5 Total Bilirubin 0.70 AST 20 ALT 47 Alkaline Phosphatase 153 H Total Protein 7.2 Albumin 3.2 Globulin 4.0 Albumin/Globulin Ratio 0.8 L Urine Color Urine Clarity Urine pH Ur Specific [place] Urine Protein Urine Glucose (UA) Urine Ketones Urine Occult Blood Urine Nitrite Urine Bilirubin Urine Urobilinogen Ur Leukocyte Esterase Urine RBC Urine WBC Ur Squamous Epith Cells Urine Bacteria Urine Mucus Acetone Level NEGATIVE 02/14/21 15:00 WBC RBC Hgb Hct MCV MCH MCHC RDW Std Deviation RDW Coeff of Melanie Plt Count MPV Immature Gran % (Auto) Neut % (Auto) Lymph % (Auto) [place] % (Auto) Eos % (Auto) Baso % (Auto) Absolute Neuts (auto) Absolute Lymphs (auto) Nucleated RBC % Sodium Potassium Chloride Carbon Dioxide Anion Gap BUN Creatinine Estim Creat Clear Calc Est GFR (MDRD) Af Amer Est GFR (MDRD) Non-Af BUN/Creatinine Ratio Glucose Calcium Total Bilirubin AST ALT Alkaline Phosphatase Total Protein Albumin Globulin Albumin/Globulin Ratio Urine Color Yellow Urine Clarity Clear Urine pH 6.0 Ur Specific [place] 1.015 Urine Protein Negative Urine Glucose (UA) 1000 H Urine Ketones 5 H Urine Occult Blood Negative Urine Nitrite Negative Urine Bilirubin Negative Urine Urobilinogen Normal Ur Leukocyte Esterase Negative Urine RBC 0 SEEN Urine WBC 0 SEEN Ur Squamous Epith Cells 0 SEEN Urine Bacteria 0 SEEN Urine Mucus 0 SEEN Acetone Level Discharge Plan Triage Chief Complaint: Hyperglycemia ED Provider: Bud Wetzel Dx/Rx/DC Orders Clinical Impression: Acute hyperglycemia Instructions: ED Diabetic Hyperglycemia Prescriptions: No Action citalopram 40 MG tablet 40 mg PO DAILY RF: 0 amlodipine 10 MG tablet 10 mg PO DAILY RF: 0 lisinopril [Zestril] 40 MG tablet 40 mg PO DAILY RF: 0 metoprolol tartrate 50 MG tablet 50 mg PO BID Qty: 60 RF: 1 atorvastatin 20 MG tablet 20 mg PO QHS Qty: 30 RF: 0 tamsulosin 0.4 MG capsule 0.4 mg PO DAILY@1730 Qty: 30 RF: 0 metformin 500 mg Tablet 1,000 mg PO DAILY RF: 0 naproxen 500 MG tablet 500 mg PO BID PRN Qty: 20 RF: 0 oxycodone-acetaminophen [Percocet] 5-325 mg tablet 1 tab PO Q6H PRN (Reason: pain) 3 Days Qty: 10 RF: 0 Primary Care Provider: Billy De Santiago Referrals: Billy De Santiago MD [Primary Care Provider] - 3-5 Days Activity Restrictions/Additional Instructions: Must check your blood sugars at minimum 3 times a day. Go to bed tonight. If it is running 100 or below eat a snack before bedtime. Follow-up your primary care physician in 3 days to 5 days. Return if you are feeling worse. Drink plenty of water. Disposition Disposition: Home, self care
[2021-02-14 15:08] LABS: Bacteria 0 SEEN /hpf (None Seen); Mucous, Urine 0 SEEN /hpf (<or=2+); Red Blood Cells-Urine 0 SEEN /hpf (0-5); Squamous Epithelial Cells - UA 0 SEEN /hpf (0-5); White Blood Cells 0 SEEN /hpf (0-5)
[2021-02-14 15:11] LABS: Color, Urine Yellow (Yellow); Glucose, Dipstick 1000 mg/dl (Normal); Ketone-Dipstick 5 mg/dl (Negative); Leukocyte Esterase-Dipstick Negative /ul (Negative); Nitrite-Dipstick Negative (Negative); Occult Blood-Urine Negative /ul (Negative); Protein-Dipstick Negative (Negative); Specific Gravity, Urine 1.015 (1.002-1.030); Urine Bilirubin Dipstick Negative (Negative); Urine Clarity Clear (Clear); Urine Urobilinogen Normal (Normal)
[2021-02-14] MEDS: 0.9% Normal Saline 1,000 ML 1000 ML IV ×2 (15:12→15:56)
[2021-02-14 15:14] VITALS: BP 146/95; PULSE 87; RESP 18; O2SAT 97
[2021-02-14 15:15] LABS: Absolute Neutrophil Count 6.9 X10^3/uL (2.0-7.7); Basophil# 0.04 X10^3/uL; Basophil% 0.4 % (0-1); Eosinophil# 0.21 X10^3/uL; Eosinophils% 1.9 % (0-5); Hematocrit 47.2 % (40-54); Hemoglobin 16.1 g/dL (13.0-16.5); Lymphocyte % 29.6 % (19-41); Mean Corp Hgb Conc 34.1 g/dL (32-36); Mean Corpuscular Hgb 28.1 pg (27.0-32.0); Mean Corpuscular Volume 82.5 fL (80-94); Mean Platelet Vol. 10.1 fl (6.2-12.0); Monocyte# 0.66 X10^3/uL; Monocyte% 5.9 % (0-10); NRBC Flagged by Analyzer 0 % (0-5); Neutrophil # 6.89 X10^3/uL (2.7-7.7); Neutrophil % 61.8 % (47-70); Platelet Count 286 K/mm3 (150-450); RBC Distribution Width CV 12.3 % (11.6-14.6); RBC Distribution Width SD 37.1 fl (35.1-43.9); Red Blood Count 5.72 M/mm3 (4.6-6.2); White Blood Count 11.1 K/mm3 (4.4-11.0)
[2021-02-14 15:33] LABS: ALB/GLOB Ratio 0.8 RATIO (0.9-2.4); AST(SGOT) 20 U/L (15-37); Alanine Aminotransfer ALT/SGPT 47 U/L (16-61); Albumin, Serum 3.2 g/dL (3.2-5.0); Alkaline Phosphatase 153 U/L (45-117); Anion Gap 8 (5-15); BUN 24 mg/dL (7-18); Calcium,Total 8.5 mg/dL (8.5-10.1); Chloride 93 mmol/L (98-107); EST Glomerular Filtration Rate 66 mL/min (>60); Est Glom Filt Rate - Afr Amer 80 mL/min (>60); Estimated Creatinine Clearance 77.06 ml/min; Glucose 403 mg/dL (74-106); Potassium 4.2 mmol/L (3.5-5.1); Protein, Total 7.2 g/dL (6.4-8.2); Sodium Level 128 mmol/L (136-145)
[2021-02-14] MEDS: Insulin Lispro 100 UNIT/ML INSULN.PEN 10 UNIT SC (16:20)
[2021-02-14 17:10] LABS: Bedside Glucose 284 mg/dL (70-110)
[2021-02-14 17:28] VITALS: BP 133/71; PULSE 78; RESP 16; O2SAT 98
== END 2021-02-14 17:30 | disposition home or self-care (01) ==
PROVIDERS: Emergency Provider Emergency Medicine; PCP Family Medicine
DX: E11.65 Type 2 diabetes mellitus with hyperglycemia (principal); B37.89 Other sites of candidiasis; I10 Essential (primary) hypertension; N40.0 Benign prostatic hyperplasia without lower urinary tract symptoms; E78.5 Hyperlipidemia, unspecified; Z86.73 Personal history of transient ischemic attack (TIA), and cerebral infarction without residual deficits; F32.9 Major depressive disorder, single episode, unspecified; Z79.84 Long term (current) use of oral hypoglycemic drugs
CPT/HCPCS: 80053; 81001; 82009; 82962; 85025; 96360; 96361; 99283; J7030; A4216

== ENCOUNTER 2021-04-15 09:22 | Emergency (ER) | payer BC, SELFPAY ==
[2021-04-15 09:24] VITALS: BP 184/100; PULSE 118; RESP 18; TEMP 37.6; O2SAT 100; BMI 31.4
--- NOTE | 2021-04-15 09:36 | EKG12_ITS ---
Test Reason : Blood Pressure : / mmHG Vent. Rate : 109 BPM Atrial Rate : 109 BPM P-R Int : 148 ms QRS Dur : 106 ms QT Int : 334 ms P-R-T Axes : 046 023 030 degrees QTc Int : 449 ms Sinus tachycardia Otherwise normal ECG Confirmed by ZEUS SHELBY, DANNY ([id number]), editorial manager FIDEL BERMAN ([id number]) on 04/21/2021 9:19:42 AM Referred By: Confirmed By:DANNY SCHULZ MD
--- NOTE | 2021-04-15 09:36 | RAD_ITS ---
EXAM DESCRIPTION: PORTABLE AP CHEST CLINICAL HISTORY: 60 years Male, cough cough COMPARISON: Previous AP portable chest obtained on 01/24/2021 FINDINGS: The thorax is intact. The heart and mediastinum appear to be within normal limits. The lungs appear to be well areated without evidence of pneumonic consolidation or pleural effusion. RAD/Chest 1 View (Portable) IMPRESSION: Normal portable chest. Electronically Signed: Pascual Baptiste DO at 11:12 EDT Tel , Service support ,
--- NOTE | 2021-04-15 09:37 | EDS_ITS ---
HPI History of Present Illness Chief Complaint: Shortness of Breath Informant: patient Narrative Narrative: 60-year-old male presents the emergency room with chief complaint of feeling poorly. Tells me that yesterday he began to feel ill. Got worse during the night. He attempted to go to work today but was unable to do so. He reports being chilled, myalgias, headache, mild sore throat, chest tightness, mild rhinorrhea, nausea, and cough. Patient states his has been ill with Covid recently. He is unvaccinated. [facility] Medical History Benign essential hypertension BPH (benign prostatic hyperplasia) Depression Diabetes Diabetes mellitus type 2 in obese Hyperlipidemia TIA (transient ischemic attack) Home Medications citalopram 20 mg PO DAILY 07/05/16 [History Last Taken 08/07/18] amlodipine 10 mg PO DAILY 12/29/17 [History Last Taken 08/07/18] lisinopril [Zestril] 40 mg PO DAILY 08/08/18 [History Last Taken 08/07/18] metoprolol tartrate 50 mg PO BID #60 tablet 08/10/18 [Rx Last Taken Unknown] tamsulosin 0.4 mg PO DAILY@1730 #30 cap 04/11/19 [Rx Last Taken Unknown] metformin 2,000 mg PO DAILY 01/20/21 [History Last Taken Unknown] naproxen 500 mg PO BID PRN #20 tab 01/20/21 [Rx Last Taken Unknown] oxycodone-acetaminophen [Percocet] 1 tab PO Q6H PRN 3 Days #10 tab 01/24/21 [Rx Last Taken Unknown] nystatin 1 applic TOPICAL BID #30 g 02/14/21 [Rx Last Taken Unknown] atorvastatin 40 mg PO QHS 04/15/21 [History Last Taken Unknown] bupropion HCl 150 mg PO DAILY 04/15/21 [History Last Taken Unknown] buspirone 5 mg PO BID 04/15/21 [History Last Taken Unknown] gabapentin 600 mg PO TID 04/15/21 [History Last Taken Unknown] glimepiride 4 mg PO DAILY 04/15/21 [History Last Taken Unknown] hydrochlorothiazide 25 mg PO DAILY 04/15/21 [History Last Taken Unknown] insulin glargine [Lantus Solostar U-100 Insulin] 16 unit SUBCUT QHS 04/15/21 [History Last Taken Unknown] zolpidem 10 mg PO DAILY 04/15/21 [History Last Taken Unknown] Allergy/AdvReac Type Severity Reaction Status Date / Time Iodinated Contrast Media [CT] Allergy Rash Verified 01/24/21 12:33 iohexol [From Omnipaque] Allergy Rash Verified 01/20/21 06:10 Surgical History History of appendectomy History of knee joint replacement History of tonsillectomy Social History Smoking Status: Never smoker ROS ROS ED Constitutional Constitutional ED: Reports chills and subjective; Denies weight loss Eyes Eyes: Denies change in vision or diplopia ENT ENT ED: Reports rhinorrhea and sore throat; Denies ear pain Cardiovascular Cardiovascular: Reports chest pain; Denies orthopnea, palpitations or racing heartbeat Respiratory/Chest Respiratory/Chest: Reports cough and dyspnea; Denies orthopnea Gastrointestinal Gastrointestinal: Reports nausea; Denies abdominal pain, diarrhea or vomiting Genitourinary Genitourinary ED: Denies dysuria, hematuria or urinary frequency Musculoskeletal Musculoskeletal: Reports myalgias; Denies arthralgias Integumentary Denies abscess or rash Neurologic Neurologic: Reports headache(s); Denies weakness Psychiatric Psychiatric: Denies anxiety, depression, suicidal ideation or suicidal thoughts Endocrine Endocrinology: Denies polydipsia, polyphagia or polyuria Allergic/Immunologic Allergic/Immunologic ED: Denies mouth swelling, tongue swelling or urticaria EXAM Physical Exam Narrative Exam Narrative: Patient appears to have rigors Const Vital Signs: 04/15/21 09:24 04/15/21 10:15 Temperature 99.7 F H 99.7 F H Temperature Source Oral Temporal Pulse Rate 118 H 115 H Respiratory Rate 18 27 H Respiratory Effort Short of Breath Labored Accessory Muscle Use Respiratory Depth Shallow Respiratory Pattern Tachypnea Blood Pressure 184/100 H 184/100 H Blood Pressure Mean 128 128 Pulse Ox 100 96 Oxygen Delivery Method Room Air Room Air Positive well nourished and well developed General Appearance ED: well developed HEENT Reports normocephalic, head/scalp atraumatic and moist mucous membranes Eyes PERRL and EOMs intact bilaterally Neck no lymphadenopathy, supple and no JVD Resp normal respiratory effort and clear to auscultation bilaterally Cardio regular rate, regular rhythm and no murmurs GI normal to inspection, nondistended, normoactive bowel sounds and non-tender Palpation: soft Back/Spine no CVA tenderness and normal ROM Extremity normal to inspection General Extremety ED: Negative for edema General Extremity: Negative for edema Neuro oriented x3 and CN's II-XII intact bilaterally Sensorium / Orientation: alert Motor Exam: strength 5/5 throughout Psych mental status grossly normal Mood & Affect: Negative for depressed or tearful Skin no rashes or lesions noted and no wounds MDM MDM MDM Narrative Medical decision making narrative: Patient is COVID-19 positive. My impression of the chest x-ray is no acute process. White count 4.7. Lactic acid 2.1 most likely up due to his rigors. He has remained high nineties on room air. Patient was advised on home care and on return instructions. Specifically informed the gentleman that it would not be burns to return to work in the near future given his positive status Lab Data Attestation: I reviewed the patient's lab results. Labs: Laboratory Results - last 24 hr 04/15/21 04/15/21 04/15/21 09:55 09:55 09:55 WBC 4.7 RBC 4.82 Hgb 13.7 Hct 41.9 MCV 86.9 MCH 28.4 MCHC 32.7 RDW Std Deviation 41.3 RDW Coeff of Melanie 13.0 Plt Count 258 MPV 10.1 Immature Gran % (Auto) 0.600 Neut % (Auto) 72.2 H Lymph % (Auto) 10.5 L [place] % (Auto) 13.5 H Eos % (Auto) 2.6 Baso % (Auto) 0.6 Absolute Neuts (auto) 3.4 Absolute Lymphs (auto) 0.49 L Nucleated RBC % 0 Differential Comment COMMENT Sodium 133 L Potassium 3.8 Chloride 100 Carbon Dioxide 27.0 Anion Gap 6 BUN 16 Creatinine 0.97 Estim Creat Clear Calc 95.34 Est GFR (MDRD) Af Amer 101 Est GFR (MDRD) Non-Af 84 BUN/Creatinine Ratio 16.5 Glucose 326 H Lactic Acid 2.1 H* Calcium 8.2 L Total Bilirubin 0.70 AST 36 ALT 65 H Alkaline Phosphatase 108 Total Protein 6.7 Albumin 3.5 Globulin 3.2 Albumin/Globulin Ratio 1.1 Radiography Diagnostic Testing: Radiology Impression Chest X-Ray 04/15/21 09:36 IMPRESSION: Normal portable chest. Electronically Signed: Pascual Baptiste DO at 11:12 EDT Tel , Service support , EKG Initial EKG: Attestation: I personally reviewed and interpreted this EKG as follows: Comments: EKG demonstrates a sinus tachycardia with ventricular rate of 109. No concerning features of ACS or ectopy noted Discharge Plan Triage Chief Complaint: Shortness of Breath ED Provider: Usmaa Pierre Dx/Rx/DC Orders Clinical Impression: COVID-19 Instructions: Coronavirus Disease 2019 (COVID-19): Caring for Yourself or Others Prescriptions: No Action citalopram 40 MG tablet 20 mg PO DAILY RF: 0 amlodipine 10 MG tablet 10 mg PO DAILY RF: 0 lisinopril [Zestril] 40 MG tablet 40 mg PO DAILY RF: 0 metoprolol tartrate 50 MG tablet 50 mg PO BID Qty: 60 RF: 1 tamsulosin 0.4 MG capsule 0.4 mg PO DAILY@1730 Qty: 30 RF: 0 metformin 500 mg Tablet 2,000 mg PO DAILY RF: 0 naproxen 500 MG tablet 500 mg PO BID PRN Qty: 20 RF: 0 oxycodone-acetaminophen [Percocet] 5-325 mg tablet 1 tab PO Q6H PRN (Reason: pain) 3 Days Qty: 10 RF: 0 nystatin 100,000 unit/gram cream 1 applic topical BID Qty: 30 RF: 0 buspirone 5 mg tablet 5 mg PO BID RF: 0 glimepiride 4 mg tablet 4 mg PO DAILY RF: 0 gabapentin 300 mg capsule 600 mg PO TID RF: 0 hydrochlorothiazide 25 mg tablet 25 mg PO DAILY RF: 0 zolpidem 10 mg tablet 10 mg PO DAILY RF: 0 bupropion HCl 150 mg tablet extended release 24 hr 150 mg PO DAILY RF: 0 Lantus Solostar U-100 Insulin 100 unit/mL (3 mL) insulin pen 16 unit SUBCUT QHS RF: 0 atorvastatin 20 MG tablet 40 mg PO QHS RF: 0 Other Ambulatory Orders: COVID: Outpatient Monoclonal Antibody Referral (Routine) Location: None Selected Ordered By: Dr. Usama Pierre Primary Care Provider: Billy De Santiago Referrals: Billy De Santiago MD [Primary Care Provider] - Disposition Disposition: Home, Self Care
[2021-04-15] MEDS: Ketorolac 30 MG/ML Syringe IV (10:00)
[2021-04-15] MEDS: Ondansetron 4 MG/2 ML Vial IV (10:01)
[2021-04-15] MEDS: Acetaminophen 500 MG Tablet 1000 MG PO (10:03)
[2021-04-15 10:15] VITALS: BP 184/100; PULSE 115; RESP 27; TEMP 37.6; O2SAT 96
[2021-04-15 10:20] LABS: Absolute Lymphocyte Count 0.49 X10^3/uL (0.83-4.51); Absolute Neutrophil Count 3.4 X10^3/uL (2.0-7.7); Basophil# 0.03 X10^3/uL; Basophil% 0.6 % (0-1); Differential Indicated SCAN CRITERIA MET; Eosinophil# 0.12 X10^3/uL; Eosinophils% 2.6 % (0-5); Hematocrit 41.9 % (40-54); Hemoglobin 13.7 g/dL (13.0-16.5); Lymphocyte # 0.49 X10^3/ul (0.83-4.51); Lymphocyte % 10.5 % (19-41); Mean Corp Hgb Conc 32.7 g/dL (32-36); Mean Corpuscular Hgb 28.4 pg (27.0-32.0); Mean Corpuscular Volume 86.9 fL (80-94); Mean Platelet Vol. 10.1 fl (6.2-12.0); Monocyte# 0.63 X10^3/uL; Monocyte% 13.5 % (0-10); NRBC Flagged by Analyzer 0 % (0-5); Neutrophil # 3.36 X10^3/uL (2.7-7.7); Neutrophil % 72.2 % (47-70); POSITIVE DIFFERENTIAL YES; Platelet Count 258 K/mm3 (150-450); RBC Distribution Width SD 41.3 fl (35.1-43.9); Red Blood Count 4.82 M/mm3 (4.6-6.2); White Blood Count 4.7 K/mm3 (4.4-11.0)
[2021-04-15 10:37] LABS: BUN 16 mg/dL (7-18); Creatinine, Serum 0.97 mg/dL (0.70-1.30); Estimated Creatinine Clearance 95.34 ml/min; Glucose 326 mg/dL (74-106)
[2021-04-15 10:38] LABS: ALB/GLOB Ratio 1.1 RATIO (0.9-2.4); AST(SGOT) 36 U/L (15-37); Alanine Aminotransfer ALT/SGPT 65 U/L (16-61); Albumin, Serum 3.5 g/dL (3.2-5.0); Alkaline Phosphatase 108 U/L (45-117); Anion Gap 6 (5-15); BUN/Creat Ratio 16.5 RATIO (10-20); Calcium,Total 8.2 mg/dL (8.5-10.1); Chloride 100 mmol/L (98-107); EST Glomerular Filtration Rate 84 mL/min (>60); Est Glom Filt Rate - Afr Amer 101 mL/min (>60); Globulin 3.2 g/dL (2.2-4.2); Potassium 3.8 mmol/L (3.5-5.1); Protein, Total 6.7 g/dL (6.4-8.2); Sodium Level 133 mmol/L (136-145)
[2021-04-15 10:48] LABS: Lactic Acid 2.1 mmol/L (0.4-1.9)
[2021-04-15 11:51] VITALS: PULSE 97; RESP 19; O2SAT 97
[2021-04-15 14:15] LABS: Reflex Lactate? Y
== END 2021-04-15 12:27 | disposition home or self-care (01) ==
PROVIDERS: Emergency Provider Emergency Medicine; PCP Family Medicine
DX: U07.1 COVID-19 (principal); I10 Essential (primary) hypertension; N40.0 Benign prostatic hyperplasia without lower urinary tract symptoms; E11.9 Type 2 diabetes mellitus without complications; E78.5 Hyperlipidemia, unspecified; F32.9 Major depressive disorder, single episode, unspecified; Z86.73 Personal history of transient ischemic attack (TIA), and cerebral infarction without residual deficits; Z79.4 Long term (current) use of insulin
CPT/HCPCS: 71045; 80053; 83605; 85025; 87426; 93005; 96374; 96375; 99284; A4216; J2405

== ENCOUNTER 2021-04-21 12:54 | Inpatient (IN) | payer BC, SELFPAY ==
[2021-04-15 13:17] VITALS: BMI 31.4
[2021-04-21] VITALS (11 sets, daily range): BP systolic 100–151; BP diastolic 66–100; PULSE 86–104; RESP 18–30; TEMP 37.3–38.2; O2SAT 89–96; BMI 30.2
--- NOTE | 2021-04-21 13:43 | RAD_ITS ---
STUDY: X-RAY CHEST REASON FOR EXAM: Male, 60 years old. Cough sob covid TECHNIQUE: Single AP portable view of the chest. COMPARISON: Comparison is made with prior study 04/15/2021. FINDINGS: EKG electrode are seen. New focal patchy areas of infiltrates seen in a preferential lateral distribution more prominent in the left hemithorax. There is no demonstrated pleural abnormality. Normal size heart. Normal mediastinum and dain. Normal visualized pulmonary arteries. Normal visualized aortic arch and descending thoracic aorta. There are diffuse degenerative changes of the visualized thoracic spine. Patient is status post fusion of the lower cervical spine. There is no demonstrated abnormality of the visualized soft tissue structures of the upper abdomen. RAD/Chest 1 View (Portable) IMPRESSION: New bilateral peripheral infiltrates worse in the left hemithorax. Findings suggestive of Covid pneumonia. Electronically Signed: Simón Ro MD at 14:38 EDT , Service support ,
--- NOTE | 2021-04-21 13:45 | EDS_ITS ---
HPI History of Present Illness Chief Complaint: Weakness Informant: patient Onset/Context/Timing Onset: Weeks (1) Context: Gradual Onset Timing: Continuous Quality: weak Location: all over Current Severity: Severe Maximum Severity: Severe Worsened by: nothing Relieved by: nothing Associated Symptoms Associated Symptoms: myalgias, chills, abd pain, diarrhea, nausea w/o vtg Narrative Narrative: Patient's came down with COVID-19, now he has it. Symptoms for 1 week, tested positive on the first day of symptoms, getting weaker. Shortness of breath is mild. No chest discomfort but he has abdominal discomfort diffusely and has diarrhea some nausea. He presents here mainly for the fatigue and weakness. He did not have vaccination. [facility] Medical History Benign essential hypertension BPH (benign prostatic hyperplasia) Depression Diabetes Diabetes mellitus type 2 in obese Hyperlipidemia TIA (transient ischemic attack) Home Medications citalopram 20 mg PO DAILY 07/05/16 [History Last Taken 08/07/18] amlodipine 10 mg PO DAILY 12/29/17 [History Last Taken 08/07/18] lisinopril [Zestril] 40 mg PO DAILY 08/08/18 [History Last Taken 08/07/18] metoprolol tartrate 50 mg PO BID #60 tablet 08/10/18 [Rx Last Taken Unknown] tamsulosin 0.4 mg PO DAILY@1730 #30 cap 04/11/19 [Rx Last Taken Unknown] metformin 2,000 mg PO DAILY 01/20/21 [History Last Taken Unknown] naproxen 500 mg PO BID PRN #20 tab 01/20/21 [Rx Last Taken Unknown] atorvastatin 40 mg PO QHS 04/15/21 [History Last Taken Unknown] bupropion HCl 150 mg PO DAILY 04/15/21 [History Last Taken Unknown] buspirone 5 mg PO BID 04/15/21 [History Last Taken Unknown] gabapentin 600 mg PO TID 04/15/21 [History Last Taken Unknown] glimepiride 4 mg PO DAILY 04/15/21 [History Last Taken Unknown] hydrochlorothiazide 25 mg PO DAILY 04/15/21 [History Last Taken Unknown] insulin glargine [Lantus Solostar U-100 Insulin] 16 unit SUBCUT QHS 04/15/21 [History Last Taken Unknown] zolpidem 10 mg PO QHS PRN 04/15/21 [History Last Taken Unknown] Allergy/AdvReac Type Severity Reaction Status Date / Time Iodinated Contrast Media [CT] Allergy Rash Verified 04/21/21 13:01 iohexol [From Omnipaque] Allergy Rash Verified 04/21/21 13:01 Surgical History History of appendectomy History of knee joint replacement History of tonsillectomy Social History Smoking Status: Never smoker ROS ROS ED Constitutional Constitutional ED: Reports as per HPI, body ache(s), chills, fatigue, fever(s) and weakness Eyes Eyes: Denies change in vision or diplopia ENT ENT ED: Denies rhinorrhea or sore throat Cardiovascular Cardiovascular: Denies chest pain or palpitations Respiratory/Chest Respiratory/Chest: Reports cough and dyspnea Gastrointestinal Gastrointestinal: Reports abdominal pain, diarrhea and nausea; Denies hematochezia, melena or vomiting Genitourinary Genitourinary ED: Denies dysuria or hematuria Musculoskeletal Musculoskeletal: Reports back pain and muscle cramps; Denies neck pain Integumentary Denies abscess or rash Neurologic Neurologic: Reports headache(s); Denies paresthesias or weakness Psychiatric Psychiatric: Denies anxiety or suicidal thoughts EXAM Physical Exam Const Vital Signs: 04/21/21 12:55 04/21/21 13:03 04/21/21 14:54 Temperature 99.2 F H 99.3 F H Temperature Source Temporal Temporal Pulse Rate 98 101 H Respiratory Rate 18 24 H Respiratory Effort Normal Non-Labored Respiratory Pattern Normal Blood Pressure 151/100 H 120/82 H Blood Pressure Mean 117 94 Pulse Ox 96 89 Oxygen Delivery Method Room Air Room Air 04/21/21 15:17 04/21/21 15:51 Temperature Temperature Source Pulse Rate 104 H Respiratory Rate 27 H Respiratory Effort Respiratory Pattern Blood Pressure 100/66 Blood Pressure Mean 77 Pulse Ox 90 92 Oxygen Delivery Method Room Air Room Air Positive well nourished and well developed Constitutional Narrative: Ill-appearing but in no distress General Appearance ED: well developed and NAD HEENT Reports moist mucous membranes normocephalic and atraumatic Eyes PERRL and EOMs intact bilaterally Neck full ROM, no lymphadenopathy and supple Resp normal respiratory effort and clear to auscultation bilaterally Cardio regular rate, regular rhythm and no murmurs Rate: Negative for tachycardic GI non-distended GI Narrative: Diffusely mildly tender without guarding or rebound tenderness Auscultation: normoactive bowel sounds Palpation: soft Back/Spine no CVA tenderness General Back: other FROM Extremity normal to inspection Extremity Narrative: Limited effort to move extremities General Extremety ED: Negative for edema, pulses abnormal or tenderness General Extremity: Negative for edema or pulses abnormal Neuro oriented x3, CN's II-XII intact bilaterally and no sensory deficits noted Sensorium / Orientation: awake and alert Motor Exam: strength 5/5 throughout Skin no rashes or lesions noted and no wounds MDM MDM MDM Narrative Medical decision making narrative: Patient still very ill appearing and getting dyspnea, chest x-ray confirms development of Covid pneumonia. His D-dimer is 0.56, which when corrected for his age is well within normal limits, ruling out pulmonary embolus acutely. He likely is a little abnormal because of Covid proper. His oxygen saturations are hovering between 89 and 90%. I was speaking with him and at rest he dipped down to 86%. He feels sick enough to prefer staying in the hospital versus going home. We placed him on oxygen and started Decadron, and I discussed with hospitalist. Lab Data Attestation: I reviewed the patient's lab results. Labs: Laboratory Results - last 24 hr 04/21/21 04/21/21 04/21/21 13:10 13:10 14:00 WBC 5.6 RBC 5.60 Hgb 15.8 Hct 49.0 MCV 87.5 MCH 28.2 MCHC 32.2 RDW Std Deviation 42.4 RDW Coeff of Melanie 13.2 Plt Count 219 MPV 9.6 Immature Gran % (Auto) 0.400 Neut % (Auto) 63.1 Lymph % (Auto) 25.2 [place] % (Auto) 11.1 H Eos % (Auto) 0.0 Baso % (Auto) 0.2 Absolute Neuts (auto) 3.5 Absolute Lymphs (auto) 1.41 Nucleated RBC % 0 D-Dimer Quant (PE/DVT) 0.56 H* Sodium 131 L Potassium 3.9 Chloride 97 L Carbon Dioxide 24.0 Anion Gap 10 BUN 18 Creatinine 1.11 Estim Creat Clear Calc 83.31 Est GFR (MDRD) Af Amer 87 Est GFR (MDRD) Non-Af 72 BUN/Creatinine Ratio 16.2 Glucose 234 H Calcium 8.0 L Total Bilirubin 0.60 AST 33 ALT 49 Alkaline Phosphatase 95 Total Protein 7.2 Albumin 2.9 L Globulin 4.3 H Albumin/Globulin Ratio 0.7 L Radiography Diagnostic Testing: Radiology Impression Chest X-Ray 04/21/21 13:43 IMPRESSION: New bilateral peripheral infiltrates worse in the left hemithorax. Findings suggestive of Covid pneumonia. Electronically Signed: Simón Ro MD at 14:38 EDT , Service support , Rhythm Strip Rhythm Strip: Sinus Rhythm Rate: 95 Ectopy: None Discharge Plan Dx/Rx/DC Orders Clinical Impression: Pneumonia due to 2019 novel coronavirus, Hypoxemia Disposition Disposition: Acute Care [facility]
[2021-04-21] MEDS: Ketorolac 15 MG/ML Vial IV (13:55)
[2021-04-21] MEDS: Ondansetron 4 MG/2 ML Vial IV (13:55)
[2021-04-21 13:57] LABS: Absolute Lymphocyte Count 1.41 X10^3/uL (0.83-4.51); Absolute Neutrophil Count 3.5 X10^3/uL (2.0-7.7); Basophil# 0.01 X10^3/uL; Basophil% 0.2 % (0-1); Hemoglobin 15.8 g/dL (13.0-16.5); Lymphocyte # 1.41 X10^3/ul (0.83-4.51); Lymphocyte % 25.2 % (19-41); Mean Corp Hgb Conc 32.2 g/dL (32-36); Mean Corpuscular Hgb 28.2 pg (27.0-32.0); Mean Corpuscular Volume 87.5 fL (80-94); Mean Platelet Vol. 9.6 fl (6.2-12.0); Monocyte# 0.62 X10^3/uL; Monocyte% 11.1 % (0-10); NRBC Flagged by Analyzer 0 % (0-5); Neutrophil # 3.54 X10^3/uL (2.7-7.7); Neutrophil % 63.1 % (47-70); Platelet Count 219 K/mm3 (150-450); RBC Distribution Width CV 13.2 % (11.6-14.6); RBC Distribution Width SD 42.4 fl (35.1-43.9); White Blood Count 5.6 K/mm3 (4.4-11.0)
[2021-04-21 14:12] LABS: ALB/GLOB Ratio 0.7 RATIO (0.9-2.4); AST(SGOT) 33 U/L (15-37); Alanine Aminotransfer ALT/SGPT 49 U/L (16-61); Albumin, Serum 2.9 g/dL (3.2-5.0); Alkaline Phosphatase 95 U/L (45-117); Anion Gap 10 (5-15); BUN 18 mg/dL (7-18); BUN/Creat Ratio 16.2 RATIO (10-20); Chloride 97 mmol/L (98-107); Creatinine, Serum 1.11 mg/dL (0.70-1.30); EST Glomerular Filtration Rate 72 mL/min (>60); Est Glom Filt Rate - Afr Amer 87 mL/min (>60); Estimated Creatinine Clearance 83.31 ml/min; Globulin 4.3 g/dL (2.2-4.2); Glucose 234 mg/dL (74-106); Potassium 3.9 mmol/L (3.5-5.1); Protein, Total 7.2 g/dL (6.4-8.2); Sodium Level 131 mmol/L (136-145)
[2021-04-21 14:30] LABS: D-Dimer Quantitative (DVT/PE) 0.56 FEU/ug/m (0.27-0.49)
[2021-04-21] MEDS: dexAMETHasone 4 MG/ML Vial 6 MG IV (15:50)
--- NOTE | 2021-04-21 16:23 | HP.PCM.HOS_ITS ---
HPI - General General Date of Admission: 04/21/21 Date of Service: 04/21/21 Chief Complaint: COVID x 1 week, worsening symptoms HPI Narrative The patient is a 60 y/o M w/ PMHx: Obesity, HTN, HLD, Depression and Anxiety, BPH, Diabetes mellitus type II, Hx TIA who presents to the [facility] ED on 04/21/21 with history of recent 04/15/2021 ED visit secondary to shortness of breath complaint starting the day prior to that visit with chills, myalgias, headache, mild sore throat, chest tightness, mild rhinorrhea, nausea and cough with recently i ll with Covid with unvaccinated status with positive COVID-19 testing at that time discharged home given stable appearance however now returns with worsening fatigue, malaise in addition to generalized abdominal discomfort and now some mild diarrhea not improving prompting ED evaluation secondary to debility and worsening symptoms. Patient upon evaluation with primarily right sided abdominal discomfort, reports primarily with diarrhea and with palpation, currently following evaluation rates pain 8 out of 10 in severity, more sharp with palpation. Work-up in the ED included T 99.3, heart rate 104, BP 120/82, respiratory rate 27, 89 to 92% on room air at rest however did decrease to 86% on RA with discussions with ED physician, CBC with WBC 5.6, hemoglobin 15.8, platelet 219 with no marked shift, D-dimer 0.56 although normal once age- adjusted, CMP with sodium 131, chloride 97, glucose 234, unremarkable hepatic profile, chest x-ray with new bilateral perihilar infiltrates worse in the left hemithorax suggestive of Covid pneumonia. In the ED patient administered Zofran, normal saline, Toradol, Decadron 6 mg as well as albuterol. Did discuss vaccination following recovery and patient is amenable. [facility] Medical History (Updated 04/21/21 @ 15:[address] Carlos Henderson MD) Benign essential hypertension BPH (benign prostatic hyperplasia) Depression Diabetes Diabetes mellitus type 2 in obese Hyperlipidemia TIA (transient ischemic attack) Home Medications citalopram 20 mg PO DAILY 07/05/16 [History Last Taken 08/07/18] amlodipine 10 mg PO DAILY 12/29/17 [History Last Taken 08/07/18] lisinopril [Zestril] 40 mg PO DAILY 08/08/18 [History Last Taken 08/07/18] metoprolol tartrate 50 mg PO BID #60 tablet 08/10/18 [Rx Last Taken Unknown] tamsulosin 0.4 mg PO DAILY@1730 #30 cap 04/11/19 [Rx Last Taken Unknown] metformin 2,000 mg PO DAILY 01/20/21 [History Last Taken Unknown] naproxen 500 mg PO BID PRN #20 tab 01/20/21 [Rx Last Taken Unknown] atorvastatin 40 mg PO QHS 04/15/21 [History Last Taken Unknown] bupropion HCl 150 mg PO DAILY 04/15/21 [History Last Taken Unknown] buspirone 5 mg PO BID 04/15/21 [History Last Taken Unknown] gabapentin 600 mg PO TID 04/15/21 [History Last Taken Unknown] glimepiride 4 mg PO DAILY 04/15/21 [History Last Taken Unknown] hydrochlorothiazide 25 mg PO DAILY 04/15/21 [History Last Taken Unknown] insulin glargine [Lantus Solostar U-100 Insulin] 16 unit SUBCUT QHS 04/15/21 [History Last Taken Unknown] zolpidem 10 mg PO QHS PRN 04/15/21 [History Last Taken Unknown] Allergy/AdvReac Type Severity Reaction Status Date / Time Iodinated Contrast Media [CT] Allergy Rash Verified 04/21/21 13:01 iohexol [From Omnipaque] Allergy Rash Verified 04/21/21 13:01 Family History (Updated 04/21/21 @ 17:[address] Kirsten Vogel MD) Mother Brain aneurysm age 65 with ruptured aneurysm. Father Diabetes Surgical History (Updated 04/21/21 @ 17:[address] Kirsten Vogel MD) History of appendectomy History of back surgery History of knee joint replacement History of tonsillectomy Social History (Updated 04/21/21 @ 17:[address] Kirsten Vogel MD) household members: spouse Smoking Status: Never smoker alcohol intake: never substance use type: does not use ROS ROS Narrative Admission Review of Systems: CONSTITUTIONAL: No weight loss, +fever, chills, weakness or fatigue. HEENT: Eyes: No visual loss, blurred vision, double vision or yellow sclerae. Ears, Nose, Throat: No hearing loss, sneezing, congestion, runny nose or sore throat. SKIN: No rash or itching, lesions, wounds. CARDIOVASCULAR: No chest pain, chest pressure or chest discomfort, palpitations, edema, orthopnea, syncopal events. RESPIRATORY: + shortness of breath, cough without marked sputum, No wheezing, hemoptysis. GASTROINTESTINAL: + anorexia, nausea, vomiting, diarrhea, abdominal pain, No melena, BRBPR. GENITOURINARY: No dysuria, frequency, urgency or retention. NEUROLOGICAL: No headache, dizziness, syncope, paralysis, ataxia, numbness or tingling in the extremities, focal weakness, change in bowel or bladder control, seizure. MUSCULOSKELETAL: + muscle, back pain, joint pain or stiffness. HEMATOLOGIC: No anemia, bleeding or bruising. LYMPHATICS: No enlarged nodes. No history of splenectomy. PSYCHIATRIC: + history of depression or anxiety. ENDOCRINOLOGIC: No reports of sweating, cold or heat intolerance. No polyuria or polydipsia. ALLERGIES: No history of asthma, hives, eczema or rhinitis. Vital Signs Vital Signs Vital Signs: 04/21/21 12:55 04/21/21 13:03 04/21/21 14:54 Temperature 99.2 F H 99.3 F H Temperature Source Temporal Temporal Pulse Rate 98 101 H Respiratory Rate 18 24 H Respiratory Effort Normal Non-Labored Respiratory Pattern Normal Blood Pressure 151/100 H 120/82 H Blood Pressure Mean 117 94 Pulse Ox 96 89 Oxygen Delivery Method Room Air Room Air 04/21/21 15:17 04/21/21 15:51 Temperature Temperature Source Pulse Rate 104 H Respiratory Rate 27 H Respiratory Effort Respiratory Pattern Blood Pressure 100/66 Blood Pressure Mean 77 Pulse Ox 90 92 Oxygen Delivery Method Room Air Room Air Weight Weight: 234 lb 2.095 oz Body Mass Index (BMI) 30.0 Physical Exam Narrative Physical Examination: General: Awake, alert, oriented x 3 and cooperative, laying in the ED bed, fatigued and ill-appearing, ongoing mildly noted hypoxia. Skin: Flushed color, normal turgor, no icterus, no cyanosis. HEENT: AT/NC, EOMI, PERRLA, dry MM, no carotid bruits or JVD noted. Lungs: Severely diffusely diminished breath sounds, greater bases, decreased effort, mild increased respiratory rate but no obvious evidence of distress, no rales, ronchi or wheezing. Heart: Mildly tachycardic with regular rhythm; no gallop, rub audible. Abdomen: Soft, notable right upper quadrant pain with palpation with some rebound and mild guarding, ND, hyperactive BS, no obvious HSM but difficult exam given discomfort with evaluation as noted. Extremities: No cyanosis, clubbing, or edema. Neurological: Patient awake, alert, oriented as noted, cognitive function intact; pupils equally reactive to light and accommodation, cranial nerves II- XII grossly normal, moving all 4 extremities, no focal deficits, strength severely global decrease secondary to acute presentation. Psychiatric: Affect appears ill, fatigued, no acute evidence of depressive or anxiety feelings. Results Lab / Micro Data Result Diagrams: 04/21/21 13:10 04/21/21 13:10 Labs: Laboratory Results - last 24 hr 04/21/21 13:10: WBC 5.6, RBC 5.60, Hgb 15.8, Hct 49.0, MCV 87.5, MCH 28.2, MCHC 32.2, RDW Std Deviation 42.4, RDW Coeff of Melanie 13.2, Plt Count 219, MPV 9.6, Immature Gran % (Auto) 0.400, Neut % (Auto) 63.1, Lymph % (Auto) 25.2, [place] % (Auto) 11.1 H, Eos % (Auto) 0.0, Baso % (Auto) 0.2, Absolute Neuts (auto) 3.5, Absolute Lymphs (auto) 1.41, Nucleated RBC % 0 04/21/21 13:10: Sodium 131 L, Potassium 3.9, Chloride 97 L, Carbon Dioxide 24.0, Anion Gap 10, BUN 18, Creatinine 1.11, Estim Creat Clear Calc 83.31, Est GFR (M DRD) Af Amer 87, Est GFR (MDRD) Non-Af 72, BUN/Creatinine Ratio 16.2, Glucose 234 H, Calcium 8.0 L, Total Bilirubin 0.60, AST 33, ALT 49, Alkaline Phosphatase 95, Total Protein 7.2, Albumin 2.9 L, Globulin 4.3 H, Albumin/Globulin Ratio 0.7 L 04/21/21 14:00: D-Dimer Quant (PE/DVT) 0.56 H* Radiology Impression Chest X-Ray 04/21/21 13:43 IMPRESSION: New bilateral peripheral infiltrates worse in the left hemithorax. Findings suggestive of Covid pneumonia. Electronically Signed: Simón Ro MD at 14:38 EDT , Service support , Assessment & Plan Assessment/Plan (1) Pneumonia due to 2019 novel coronavirus: (2) Hypoxemia: PLAN: The patient is a 60 y/o M w/ PMHx: Obesity, HTN, HLD, Depression and Anxiety, BPH, Diabetes mellitus type II, Hx TIA who presents to the [facility] ED on 04/21/21 with history of recent 04/15/2021 ED visit secondary to shortness of breath complaint starting the day prior to that visit with chills, myalgias, headache, mild sore throat, chest tightness, mild rhinorrhea, nausea and cough with recently ill with Covid with unvaccinated status with positive COVID-19 testing at that time discharged home given stable appearance however now returns with worsening fatigue, malaise in addition to generalized abdominal discomfort and now some mild diarrhea not improving prompting ED evaluation secondary to debility and worsening symptoms. 1. Acute Sepsis (SIRS x 2 with source) secondary to Acute Bilateral Pneumonia secondary to Acute Viral Syndrome, COVID-19 with associated Hypoxia: Will admit to the COVID unit, will maintain on oxygen with wean as tolerated to room air, PRN albuterol, HOB, IS parameters w/ pending sputum cultures, respiratory viral panel and urine antigens, will obtain procalcitonin, CRP, CPK, Ferritin, LDH, trop and BNP, continue supportive care including q 2 hour turning including prone given no prone bed availability and judicious hydration, closely monitor for worsening status for ARDS and multiorgan failure, will initiate and continue IV decadron x 10 doses, given presentation will also initiate IV remdesivir given < 10 day history but defer to discretion of Infectious disease. Given ongoing episodes of diarrhea will also place on antidiarrheal regimen. 2. Severe right upper quadrant pain: Possibly from acute presentation #1 and diarrhea but notable rebound and some guarding, given allergy to CT contrast will request right upper quadrant ultrasound, hepatic profile was not marked appearing, do suspect likely secondary to 1 but to be cautious we will continue with this evaluation, repeat CMP in a.m. additionally. N.p.o. status currently, transition diet if this is unremarkable. 3. Diabetes mellitus type II with polyneuropathy: Hold oral home regimen, continue home insulin regimen, currently will maintain n.p.o. status pending ri ght upper quadrant ultrasound given significant pain upon palpation but following this if appropriate will initiate clears and transition as able to tolerate to ADA diet, accu checks w/ ISS, continue patient home gabapentin regimen. 4. Hypertension: Continue home regimen including amlodipine, hydr ochlorothiazide, metoprolol, lisinopril with hold parameters, PRN hydralazine. 5. Hyperlipidemia: We will continue patient on statin therapy. 6. Anxiety and depression: We will continue patient home bupropion, citalopram, buspirone regimen. 7. History TIA: We will continue patient home aspirin, statin, hypertensive regimen as well as diabetic regimen. 8. BPH: We will continue patient home Flomax regimen. 9. DVT prophylaxis: SCDs, Lovenox. 10. CODE status: Patient DONA is his and living will is currently in place. Discussed CODE status at length including difference between FULL code, DNR-CCA and DNR-CC status. Following discussions about the differences in these status, requested Full Code status, amenable to high flow and BIPAP also. Advanced Care Planning Face to Face Time: 16 minutes. Charges/Coding Visit Charges Inpatient E&M: 16975 Init Hosp L3 Procedures Hospitalists Procedures: 21168 Advncd Care Plan 30 Min
--- NOTE | 2021-04-21 17:02 | US_ITS ---
STUDY: ABDOMINAL ULTRASOUND - RIGHT UPPER QUADRANT REASON FOR VISIT: Male, 60 years old RUQ pain TECHNIQUE: Ultrasound evaluation of the right upper quadrant was performed with real-time and static keller-scale imaging. TECHNICAL QUALITY: Adequate. COMPARISON: None. FINDINGS: Liver: The liver measures 17.4 cm. There is increased echogenicity consistent with fatty infiltration. There is focal sparing adjacent to the gallbladder fossa. The bile ducts are within normal limits. There is hepatic color flow. The direction of portal flow is hepatopetal. There is no demonstrated mass lesion. Gallbladder: Normal distended gallbladder. The gallbladder wall measures 2 mm. There is a negative sonographic Bonilla''s sign. There is no pericholecystic fluid. There are no gallstones. Common Bile Duct (C.B.D.): The common bile duct measures 3 mm. Pancreas: Normal size of the head, body and tail of the pancreas. There is increased echogenicity of the pancreas. There is no demonstrated pancreatic mass or cyst. Right Kidney: Normal size of the right kidney. The right kidney measures 11.5 cm. Normal renal cortex. The right cortex measures 1.3 cm. There is no demonstrated renal mass or cyst. There is no right hydronephrosis. US/Gallbladder IMPRESSION: Fatty infiltration of the liver with focal sparing adjacent to the gallbladder. No gallstones or biliary dilatation. Electronically Signed: Carlos Perez MD at 19:59 EDT , Service support ,
[2021-04-21 19:11] LABS: Ferritin 1261 ng/mL (26-388); LDH 245 U/L (87-241); Magnesium 1.9 mg/dL (1.6-2.6); Procalcitonin 0.09 ng/mL (0.00-0.09); Troponin-I HS 13.8 pg/mL (3.0-78.5)
[2021-04-21 19:24] LABS: BNP,B-Type NATRIURETIC PEPTIDE < 2.0 pg/mL (0-100)
[2021-04-21] MEDS: Tamsulosin HCl 0.4 MG Capsule PO (20:41)
[2021-04-21] MEDS: 0.9% Saline Lock 10 ML Syringe IV (20:41)
[2021-04-21] MEDS: Atorvastatin Calcium 20 MG Tablet PO (20:41)
[2021-04-21] MEDS: 0.9% Normal Saline 1,000 ML 100 ML IV (20:41)
[2021-04-21] MEDS: MELATONIN 3 MG TABLET PO (20:42)
[2021-04-21] MEDS: Gabapentin 600 MG Tablet PO (20:42)
[2021-04-21] MEDS: Enoxaparin 40 MG/0.4 ML Syringe SC (20:42)
[2021-04-21] MEDS: Famotidine 20 MG Tablet PO (20:42)
[2021-04-21] MEDS: Morphine 2 MG/ML Syringe IV (20:43)
[2021-04-21] MEDS: Metoprolol Tartrate 50 MG Tablet PO (20:51)
[2021-04-21] MEDS: busPIRone 5 MG Tablet PO (20:52)
[2021-04-21 21:25] LABS: Bedside Glucose 284 mg/dL (70-110)
[2021-04-21] MEDS: oxyCODONE 5 MG Tablet PO (22:22)
[2021-04-21] MEDS: guaiFENesin 10 ML UDC (200MG/10ML) 20 ML PO (22:22)
[2021-04-21] MEDS: BENZOCAINE/MENTHOL 1 LOZENGE MUCOUS MEM (22:23)
[2021-04-21] MEDS: Acetaminophen 325 MG Tablet 650 MG PO (22:23)
[2021-04-22] VITALS (17 sets, daily range): BP systolic 100–136; BP diastolic 56–79; PULSE 70–98; RESP 20–22; TEMP 36.2–37.9; O2SAT 90–95
[2021-04-22] MEDS: BENZOCAINE/MENTHOL 1 LOZENGE MUCOUS MEM ×3 (01:13→21:26)
[2021-04-22] MEDS: Morphine 2 MG/ML Syringe IV ×4 (01:13→21:27)
[2021-04-22] MEDS: Acetaminophen 325 MG Tablet 650 MG PO ×2 (03:02→10:51)
[2021-04-22] MEDS: guaiFENesin 10 ML UDC (200MG/10ML) 20 ML PO ×4 (03:03→21:26)
[2021-04-22] MEDS: oxyCODONE 5 MG Tablet PO (03:03)
[2021-04-22] MEDS: Gabapentin 600 MG Tablet PO ×3 (06:23→21:26)
[2021-04-22] MEDS: 0.9% Normal Saline 1,000 ML 100 ML IV (06:27)
[2021-04-22 06:56] LABS: Bedside Glucose 270 mg/dL (70-110)
[2021-04-22 06:58] LABS: Absolute Lymphocyte Count 1.24 X10^3/uL (0.83-4.51); Absolute Neutrophil Count 3.3 X10^3/uL (2.0-7.7); Basophil# 0.02 X10^3/uL; Basophil% 0.4 % (0-1); Hematocrit 48.5 % (40-54); Hemoglobin 14.5 g/dL (13.0-16.5); Lymphocyte # 1.24 X10^3/ul (0.83-4.51); Lymphocyte % 24.4 % (19-41); Mean Corp Hgb Conc 29.9 g/dL (32-36); Mean Corpuscular Volume 93.6 fL (80-94); Mean Platelet Vol. 9.4 fl (6.2-12.0); Monocyte# 0.48 X10^3/uL; Monocyte% 9.4 % (0-10); NRBC Flagged by Analyzer 0 % (0-5); Neutrophil # 3.33 X10^3/uL (2.7-7.7); Neutrophil % 65.4 % (47-70); Platelet Count 210 K/mm3 (150-450); RBC Distribution Width CV 13.4 % (11.6-14.6); RBC Distribution Width SD 46.7 fl (35.1-43.9); Red Blood Count 5.18 M/mm3 (4.6-6.2); White Blood Count 5.1 K/mm3 (4.4-11.0)
--- NOTE | 2021-04-22 07:23 | PCM.PN.HOSP ---
Subjective Subjective Patient is a 60-year-old gentleman recently diagnosed with SARS-CoV-2 who presented to the ED after a week of symptoms. Imaging studies obtained on admission demonstrated bilateral peripheral infiltrates suggestive of Covid pneumonia admitted to regular nursing floor for further management Objective Data Objective Data Vital Signs: Vital Signs Temp Pulse Resp BP Pulse Ox 98.4 F 72 22 H 121/71 H 93 04/22/21 03:00 04/22/21 03:58 04/22/21 03:00 04/22/21 03:00 04/22/21 03:00 Oxygen Delivery Method Room Air Weight: 106.9 kg Body Mass Index (BMI) 30.2 Intake & Output: Intake and Output for Last 24 Hours 04/20/21 04/21/21 04/22/21 23:59 23:59 23:59 Intake Total 500 / 600 1096.67 / 1096.67 Output Total 425 / 425 Balance 500 / 600 671.67 / 671.67 Lab / Micro Data Result Diagrams: 04/22/21 06:44 04/22/21 06:44 Labs: Laboratory Results - last 24 hr 04/21/21 13:10: WBC 5.6, RBC 5.60, Hgb 15.8, Hct 49.0, MCV 87.5, MCH 28.2, MCHC 32.2, RDW Std Deviation 42.4, RDW Coeff of Melanie 13.2, Plt Count 219, MPV 9.6, Immature Gran % (Auto) 0.400, Neut % (Auto) 63.1, Lymph % (Auto) 25.2, [place] % (Auto) 11.1 H, Eos % (Auto) 0.0, Baso % (Auto) 0.2, Absolute Neuts (auto) 3.5, Absolute Lymphs (auto) 1.41, Nucleated RBC % 0 04/21/21 13:10: Sodium 131 L, Potassium 3.9, Chloride 97 L, Carbon Dioxide 24.0, Anion Gap 10, BUN 18, Creatinine 1.11, Estim Creat Clear Calc 83.31, Est GFR (MDRD) Af Amer 87, Est GFR (MDRD) Non-Af 72, BUN/Creatinine Ratio 16.2, Glucose 234 H, Calcium 8.0 L, Total Bilirubin 0.60, AST 33, ALT 49, Alkaline Phosphatase 95, Total Protein 7.2, Albumin 2.9 L, Globulin 4.3 H, Albumin/Globulin Ratio 0.7 L 04/21/21 13:10: Magnesium 1.9, Ferritin 1261 H, Lactate Dehydrogenase 245 H, Troponin I High Sens 13.8, C-React Prot Ext Range 78.80 H 04/21/21 13:10: B-Natriuretic Peptide < 2.0 04/21/21 13:10: Procalcitonin 0.09 04/21/21 14:00: D-Dimer Quant (PE/DVT) 0.56 H* 04/21/21 21:07: POC Glucose 284 H 04/22/21 06:21: POC Glucose 270 H 04/22/21 06:44: WBC 5.1, RBC 5.18, Hgb 14.5, Hct 48.5, MCV 93.6 D, MCH 28.0, MCHC 29.9 L D, RDW Std Deviation 46.7 H, RDW Coeff of Melanie 13.4, Plt Count 210, MPV 9.4, Immature Gran % (Auto) 0.400, Neut % (Auto) 65.4, Lymph % (Auto) 24.4, [place] % (Auto) 9.4, Eos % (Auto) 0.0, Baso % (Auto) 0.4, Absolute Neuts (auto) 3.3, Absolute Lymphs (auto) 1.24, Nucleated RBC % 0 Micro: Microbiology 04/21/21 17:28 Mucosa - Nasopharyngeal Respiratory Panel (PCR) - Final 04/21/21 19:00 Urine, Clean Catch Legionella Antigen - Final 04/21/21 19:00 Urine, Clean Catch Streptococcus pneumoniae Antigen (M - Final Radiography Diagnostic Testing: Radiology Impression Chest X-Ray 04/21/21 13:43 IMPRESSION: New bilateral peripheral infiltrates worse in the left hemithorax. Findings suggestive of Covid pneumonia. Electronically Signed: Simón Ro MD at 14:38 EDT , Service support , Gallbladder Ultrasound 04/21/21 17:02 IMPRESSION: Fatty infiltration of the liver with focal sparing adjacent to the gallbladder. No gallstones or biliary dilatation. Electronically Signed: Carlos Perez MD at 19:59 EDT , Service support , Rhythm Strip Rhythm Strip: Sinus Rhythm Rate: 95 Ectopy: None Physical Exam Narrative GENERAL: cooperative HEENT: Atraumatic; EYES; Anicteric, Normal Conjunctiva NECK; supple, normal thyroid, RESPIRATORY: Diminished to auscultation CARDIOVASCULAR: Regular S1 S2, GI: soft, normoactive bowel sounds, : No Renal angle tenderness; EXTREMITIES: No edema, no clubbing, MUSCULOSKELETAL: no muscle waisting NEURO: Awake; no lateralizing signs. SKIN: No Rash PSYCH; Flat affect Assessment & Plan Assessment/Plan (1) Pneumonia due to 2019 novel coronavirus: (2) Hypoxemia: PLAN: Patient is a 60-year-old gentleman recently diagnosed with SARS-CoV-2 who presented to the ED after a week of symptoms. Imaging studies obtained on admission demonstrated bilateral peripheral infiltrates suggestive of Covid pneumonia admitted to regular nursing floor for further management 1. Sepsis secondary to SARS-CoV-2 pneumonia -Patient has been admitted to regular nursing floor managed with supplemental oxygen, Decadron as well as remdesivir in addition to supportive care. Seen this a.m. complains of fatigue 2. Diabetes mellitus type II -patient's oral hypoglycemics held. Placed on long acting insulin, Accu-Cheks a.c. and at bedtime and covered with sliding scale insulin 3. Hypertension - Blood pressure controlled, home medications continued with dose adjustment as needed 4. Dyslipidemia -Patient is on statin therapy, continued at home dose 5. Depression with anxiety ?Patient is on citalopram did continue 6. BPH ?Patient symptoms controlled on tamsulosin did continue 7. DVT prophylaxis - On enoxaparin Charges/Coding Visit Charges Inpatient E&M: 83924 [facility] Hosp L3
[2021-04-22 07:28] LABS: ALB/GLOB Ratio 0.6 RATIO (0.9-2.4); AST(SGOT) 29 U/L (15-37); Alanine Aminotransfer ALT/SGPT 43 U/L (16-61); Albumin, Serum 2.6 g/dL (3.2-5.0); Alkaline Phosphatase 87 U/L (45-117); Anion Gap 8 (5-15); BUN 27 mg/dL (7-18); BUN/Creat Ratio 24.8 RATIO (10-20); Calcium,Total 7.6 mg/dL (8.5-10.1); Chloride 102 mmol/L (98-107); Creatinine, Serum 1.09 mg/dL (0.70-1.30); EST Glomerular Filtration Rate 73 mL/min (>60); Est Glom Filt Rate - Afr Amer 89 mL/min (>60); Estimated Creatinine Clearance 84.84 ml/min; Glucose 262 mg/dL (74-106); Protein, Total 6.6 g/dL (6.4-8.2); Sodium Level 132 mmol/L (136-145)
[2021-04-22] MEDS: proCHLORPERazine 10 MG/2 ML Vial 5 MG IV (08:33)
[2021-04-22] MEDS: 0.9% Saline Lock 10 ML Syringe IV ×3 (08:33→21:23)
[2021-04-22] MEDS: Insulin Lispro 100 UNIT/ML INSULN.PEN SC ×4 (08:41→21:36)
[2021-04-22] MEDS: Aspirin 81 MG TAB.CHEW PO (10:48)
[2021-04-22] MEDS: busPIRone 5 MG Tablet PO ×2 (10:49→21:26)
[2021-04-22] MEDS: Metoprolol Tartrate 50 MG Tablet PO ×2 (10:50→21:26)
[2021-04-22] MEDS: hydroCHLOROthiazide 25 MG Tablet PO (10:50)
[2021-04-22] MEDS: Citalopram 20 MG Tablet PO (10:50)
[2021-04-22] MEDS: dexAMETHasone 10 MG/ML Vial 6 MG IV (10:50)
[2021-04-22] MEDS: amLODIPine 10 MG Tablet PO (10:51)
[2021-04-22] MEDS: Enoxaparin 40 MG/0.4 ML Syringe SC (10:51)
[2021-04-22] MEDS: buPROPion (XL) 150 MG TABLET.XL PO (10:51)
[2021-04-22] MEDS: Famotidine 20 MG Tablet PO ×2 (10:51→21:26)
[2021-04-22] MEDS: Lisinopril 40 MG Tablet PO (10:51)
[2021-04-22 11:10] LABS: Bedside Glucose 221 mg/dL (70-110)
--- NOTE | 2021-04-22 12:00 | CASEMGMT ---
Palliative screening tool completed for [facility]. Patient does not meet criteria for palliative consult.
--- NOTE | 2021-04-22 15:30 | CASEMGMT ---
TANYA DE SANTIAGO Assessment: Face to Face with pt for initial transition planning/care coordination assessment. TANYA DE SANTIAGO introduced self and role at [facility], pt voices understanding and consents to assessment. Pt is A/O x4 and answers all questions appropriately at this time. Pt lying in bed with O2 on in no distress. Care providers, pharmacy, and demographics verified/updated. Admitting Dx: COVID PNA/Sepsis/Hypoxia PCP: [facility] Specialists:Pt denies having any specialists. Preferred Pharmacy: [facility] Retail while inpatient Insurance: [employer] Prescription Benefit: yes LW/HPOA: Pt has LW/DPOA and his DPOA is his Shana Guerrero. It is on file at [facility]. LNOK: Shana Guerrero, Living Arrangements: Pt lives with and 25 year old son in a two story house with 3 steps to enter with a rail. Pt states he is I in ADL's and denies concerns at home. Transportation: Pt drives self and denies concerns with ambulation. DME/HHC/SNF: Pt denies having DME in the home, hx of HHC or SNF stay. Pt states no concerns with going home at time of dc. Pt states his also has covid and his son does not. He and his are quarantining from his son using separate bathrooms and bedrooms. He states his son doesn't leave the house. When pt dc's he states he would order online for groceries and supplies to be sent to his house. His first covid test was at [facility]. Discussed with pt the possibility of need O2 upon dc. Discussed the local in network providers. Pt preferred provider is [facility]. Pt states no further concerns/needs. CM to follow. Advised pt to ask CM if any further question/concerns/needs arise, voices understanding. Pt Goal: Home Plan: Home
[2021-04-22] MEDS: 0.9% Normal Saline 1,000 ML 125 ML IV (16:02)
[2021-04-22 16:26] LABS: Bedside Glucose 361 mg/dL (70-110)
[2021-04-22] MEDS: Tamsulosin HCl 0.4 MG Capsule PO (18:10)
[2021-04-22] MEDS: Glucerna Shake 120 ML LIQUID PO (18:11)
[2021-04-22] MEDS: MELATONIN 3 MG TABLET PO (21:26)
[2021-04-22] MEDS: Atorvastatin Calcium 20 MG Tablet PO (21:26)
[2021-04-22 22:01] LABS: Bedside Glucose 306 mg/dL (70-110)
[2021-04-23] VITALS (17 sets, daily range): BP systolic 104–144; BP diastolic 60–77; PULSE 61–76; RESP 18–20; TEMP 36.7–37.3; O2SAT 90–96
[2021-04-23] MEDS: Acetaminophen 325 MG Tablet 650 MG PO (02:31)
[2021-04-23] MEDS: oxyCODONE 5 MG Tablet PO ×3 (02:31→20:51)
[2021-04-23] MEDS: BENZOCAINE/MENTHOL 1 LOZENGE MUCOUS MEM ×2 (02:31→06:30)
[2021-04-23] MEDS: guaiFENesin 10 ML UDC (200MG/10ML) 20 ML PO (02:31)
[2021-04-23] MEDS: 0.9% Normal Saline 1,000 ML 100 ML IV ×3 (04:10→23:30)
[2021-04-23] MEDS: 0.9% Saline Lock 10 ML Syringe IV ×2 (06:30→21:03)
[2021-04-23] MEDS: Gabapentin 600 MG Tablet PO ×3 (06:30→20:49)
[2021-04-23] MEDS: Insulin Lispro 100 UNIT/ML INSULN.PEN SC ×4 (06:35→20:52)
[2021-04-23 06:46] LABS: Bedside Glucose 250 mg/dL (70-110)
[2021-04-23 07:18] LABS: Absolute Lymphocyte Count 1.23 X10^3/uL (0.83-4.51); Absolute Neutrophil Count 4.1 X10^3/uL (2.0-7.7); Basophil# 0.01 X10^3/uL; Basophil% 0.2 % (0-1); Hematocrit 41.1 % (40-54); Hemoglobin 13.2 g/dL (13.0-16.5); Lymphocyte # 1.23 X10^3/ul (0.83-4.51); Mean Corp Hgb Conc 32.1 g/dL (32-36); Mean Corpuscular Hgb 28.4 pg (27.0-32.0); Mean Corpuscular Volume 88.4 fL (80-94); Mean Platelet Vol. 9.8 fl (6.2-12.0); Monocyte# 0.51 X10^3/uL; Monocyte% 8.7 % (0-10); NRBC Flagged by Analyzer 0 % (0-5); Neutrophil # 4.08 X10^3/uL (2.7-7.7); Neutrophil % 69.6 % (47-70); Platelet Count 237 K/mm3 (150-450); RBC Distribution Width CV 13.7 % (11.6-14.6); RBC Distribution Width SD 44.2 fl (35.1-43.9); Red Blood Count 4.65 M/mm3 (4.6-6.2); White Blood Count 5.9 K/mm3 (4.4-11.0)
--- NOTE | 2021-04-23 07:20 | PN.HOSP_ITS ---
Subjective Subjective Patient was placed on supplemental oxygen also complains of feeling weak. Currently remains recommended treatment Objective Data Objective Data Vital Signs: Vital Signs Temp Pulse Resp BP Pulse Ox 99.2 F H 69 20 H 120/75 92 04/23/21 02:27 04/23/21 03:18 04/23/21 02:27 04/23/21 02:27 04/23/21 02:27 Oxygen Flow Rate (L/min) 3 Oxygen Delivery Method Nasal Cannula Weight: 108.4 kg Body Mass Index (BMI) 30.2 Intake & Output: Intake and Output for Last 24 Hours 04/21/21 04/22/21 04/23/21 23:59 23:59 23:59 Intake Total 500 / 600 3377.92 / 3377.92 1100 / 1100 Output Total 2100 / 2100 300 / 300 Balance 500 / 600 1277.92 / 1277.92 800 / 800 Medical Nutrition Assessment Dietitian: Nutrition Therapy Diagnosis Start: 04/22/21 11:06 Freq: Status: Active Protocol: Document 04/22/21 17:57 RMA (Rec: 04/22/21 17:58 RMA [id number]) Nutrition Malnutrition Evidence of Malnutrition Exists Yes Malnutrition (severe): Acute Illness/Injury Evidenced By Suboptimal Energy Intake ( Severe),Weight Loss (Severe) Clinical Problem Acute Disease or Injury Related Malnutrition Etiology Severe protein-calorie malnutrition in the context of acute illness related to ongoing poor appetite and inability to consume adequate calories Signs/Symptoms as evidenced by ~4% wt loss x 1 week, need for oral nutrition supplements and ongoing poor intake meeting less than 50% estimated nutrition needs. Status Active Problem Recommendation Dietitian Recommendations/Changes Will change diet to Carbohydrate-Controlled/ Cardiac (no caloric restriction). Will d/c glucerna shake w/ medpass and add 120ml TID w/ meals instead. Lab / Micro Data Result Diagrams: 04/23/21 06:38 04/23/21 06:38 Labs: Laboratory Results - last 24 hr 04/22/21 06:44: Sodium 132 L, Potassium 4.0, Chloride 102, Carbon Dioxide 22.0, Anion Gap 8, BUN 27 H, Creatinine 1.09, Estim Creat Clear Calc 84.84, Est GFR (MDRD) Af Amer 89, Est GFR (MDRD) Non-Af 73, BUN/Creatinine Ratio 24.8 H, Glucose 262 H, Calcium 7.6 L, Total Bilirubin 0.60, AST 29, ALT 43, Alkaline Phosphatase 87, Total Protein 6.6, Albumin 2.6 L, Globulin 4.0, Albumin/Globulin Ratio 0.6 L 04/22/21 10:43: POC Glucose 221 H 04/22/21 16:00: POC Glucose 361 H 04/22/21 21:35: POC Glucose 306 H 04/23/21 06:35: POC Glucose 250 H Micro: Microbiology 04/21/21 17:28 Mucosa - Nasopharyngeal Respiratory Panel (PCR) - Final 04/21/21 19:00 Urine, Clean Catch Legionella Antigen - Final 04/21/21 19:00 Urine, Clean Catch Streptococcus pneumoniae Antigen (M - Final Rhythm Strip Rhythm Strip: Sinus Rhythm Rate: 95 Ectopy: None Physical Exam Narrative GENERAL: cooperative HEENT: Atraumatic; EYES; Anicteric, Normal Conjunctiva NECK; supple, normal thyroid, RESPIRATORY: Diminished to auscultation CARDIOVASCULAR: Regular S1 S2, GI: soft, normoactive bowel sounds, : No Renal angle tenderness; EXTREMITIES: No edema, no clubbing, MUSCULOSKELETAL: no muscle waisting NEURO: Awake; no lateralizing signs. SKIN: No Rash PSYCH; Flat affect Assessment & Plan Assessment/Plan (1) Pneumonia due to 2019 novel coronavirus: (2) Hypoxemia: PLAN: Patient is a 60-year-old gentleman recently diagnosed with SARS-CoV-2 who presented to the ED after a week of symptoms. Imaging studies obtained on admission demonstrated bilateral peripheral infiltrates suggestive of Covid pneumonia admitted to regular nursing floor for further management 1. Sepsis secondary to SARS-CoV-2 pneumonia -Patient has been admitted to regular nursing floor managed with supplemental oxygen, Decadron as well as remdesivir in addition to supportive care. Seen this a.m. complains of fatigue - Patient was placed on supplemental oxygen also complains of feeling weak. Cu rrently remains recommended treatment 2. Diabetes mellitus type II -patient's oral hypoglycemics held. Placed on long acting insulin, Accu-Cheks a.c. and at bedtime and covered with sliding scale insulin 3. Hypertension - Blood pressure controlled, home medications continued with dose adjustment as needed 4. Dyslipidemia -Patient is on statin therapy, continued at home dose 5. Depression with anxiety ?Patient is on citalopram did continue 6. BPH ?Patient symptoms controlled on tamsulosin did continue 7. DVT prophylaxis - On enoxaparin Charges/Coding Visit Charges Inpatient E&M: 51227 Subs Hosp L2
[2021-04-23 07:46] LABS: Anion Gap 8 (5-15); BUN 28 mg/dL (7-18); BUN/Creat Ratio 31.3 RATIO (10-20); Chloride 104 mmol/L (98-107); Creatinine, Serum 0.89 mg/dL (0.70-1.30); EST Glomerular Filtration Rate 92 mL/min (>60); Est Glom Filt Rate - Afr Amer 112 mL/min (>60); Glucose 226 mg/dL (74-106); Magnesium 2.3 mg/dL (1.6-2.6); Potassium 3.9 mmol/L (3.5-5.1); Sodium Level 135 mmol/L (136-145)
[2021-04-23] MEDS: Aspirin 81 MG TAB.CHEW PO (08:53)
[2021-04-23] MEDS: dexAMETHasone 10 MG/ML Vial 6 MG IV (10:05)
[2021-04-23] MEDS: Citalopram 20 MG Tablet PO (10:05)
[2021-04-23] MEDS: busPIRone 5 MG Tablet PO ×2 (10:05→20:48)
[2021-04-23] MEDS: hydroCHLOROthiazide 25 MG Tablet PO (10:06)
[2021-04-23] MEDS: Lisinopril 40 MG Tablet PO (10:07)
[2021-04-23] MEDS: amLODIPine 10 MG Tablet PO (10:07)
[2021-04-23] MEDS: Famotidine 20 MG Tablet PO ×2 (10:07→20:50)
[2021-04-23] MEDS: Metoprolol Tartrate 50 MG Tablet PO ×2 (10:07→20:50)
[2021-04-23] MEDS: Enoxaparin 40 MG/0.4 ML Syringe SC (10:07)
[2021-04-23] MEDS: buPROPion (XL) 150 MG TABLET.XL PO (10:07)
[2021-04-23 12:51] LABS: Bedside Glucose 391 mg/dL (70-110)
[2021-04-23 16:30] LABS: Bedside Glucose 351 mg/dL (70-110)
--- NOTE | 2021-04-23 16:33 | CHAPLAIN ---
Type of Pastoral Visit ___ Initial Visit ___ Follow-up Visit ___ On-call Visit _x__ General Patient Visit ___ Spiritual Assessment ___ Family Conference ___ Bereavement ___ Rapid Response ___ Code Blue _x__ Other (describe below) Pastoral Care Referral From _x__ Patient ___ Family ___ Nurse ___ Physician ___ Punchboard Assembler ___ Laboratory Animal Care Veterinarian ___ Other (describe below) Sacrament/Intervention _x__ Active listening ___ Anointing ___ Rastafari ___ Bereavement ___ Communion ___ Hyun exploration ___ _x__ Life review _x__ Prayer ___ Reconciliation ___ Sacrament of Sick ___ Supportive presence ___ Wedding ___ Other (describe below) Pastoral Comments phone call into isolation room; pt answers phone and welcomes time to make conversation and to share his family needs; pt has concerns for adult son; pt welcomes prayer and support; pt feels he is getting better and that he will come through
[2021-04-23] MEDS: Tamsulosin HCl 0.4 MG Capsule PO (17:54)
[2021-04-23] MEDS: Atorvastatin Calcium 20 MG Tablet PO (20:49)
[2021-04-23] MEDS: MELATONIN 3 MG TABLET PO (20:50)
[2021-04-24] VITALS (15 sets, daily range): BP systolic 141–161; BP diastolic 75–97; PULSE 57–88; RESP 17–22; TEMP 36.3–37.1; O2SAT 90–95
[2021-04-24 00:01] LABS: Bedside Glucose 420 mg/dL (70-110)
[2021-04-24] MEDS: Gabapentin 600 MG Tablet PO ×3 (06:25→20:46)
[2021-04-24] MEDS: 0.9% Saline Lock 10 ML Syringe IV (06:26)
[2021-04-24] MEDS: Insulin Lispro 100 UNIT/ML INSULN.PEN SC ×4 (06:34→20:47)
[2021-04-24] MEDS: 0.9% Normal Saline 1,000 ML 100 ML IV (06:39)
[2021-04-24 06:46] LABS: Absolute Lymphocyte Count 1.16 X10^3/uL (0.83-4.51); Absolute Neutrophil Count 2.8 X10^3/uL (2.0-7.7); Hematocrit 41.2 % (40-54); Lymphocyte # 1.16 X10^3/ul (0.83-4.51); Mean Corp Hgb Conc 31.6 g/dL (32-36); Mean Corpuscular Hgb 27.5 pg (27.0-32.0); Mean Corpuscular Volume 87.3 fL (80-94); Mean Platelet Vol. 9.4 fl (6.2-12.0); Monocyte# 0.52 X10^3/uL; Monocyte% 11.6 % (0-10); NRBC Flagged by Analyzer 0 % (0-5); Neutrophil # 2.78 X10^3/uL (2.7-7.7); Neutrophil % 62.2 % (47-70); Platelet Count 264 K/mm3 (150-450); RBC Distribution Width CV 13.7 % (11.6-14.6); RBC Distribution Width SD 44.1 fl (35.1-43.9); Red Blood Count 4.72 M/mm3 (4.6-6.2); White Blood Count 4.5 K/mm3 (4.4-11.0)
[2021-04-24 07:08] LABS: Anion Gap 7 (5-15); BUN 21 mg/dL (7-18); BUN/Creat Ratio 26.3 RATIO (10-20); Calcium,Total 8.2 mg/dL (8.5-10.1); Chloride 103 mmol/L (98-107); EST Glomerular Filtration Rate 105 mL/min (>60); Est Glom Filt Rate - Afr Amer 127 mL/min (>60); Estimated Creatinine Clearance 115.59 ml/min; Glucose 216 mg/dL (74-106); Potassium 3.9 mmol/L (3.5-5.1); Sodium Level 137 mmol/L (136-145)
--- NOTE | 2021-04-24 07:31 | PCM.DC.SUM ---
Providers Date of Admission: 04/21/21 Primary Care Physician: Dr. Billy De Santiago MD Reason For Visit: COVID PNA / SEPSIS / HYPOXIA Diagnosis Discharge Diagnosis (1) Pneumonia due to 2019 novel coronavirus: Status: Acute Code(s): U07.1 - COVID-19; J12.82 - Pneumonia due to coronavirus disease 2019 (2) Hypoxemia: Status: Acute Code(s): R09.02 - Hypoxemia Medications at Discharge Home Medications citalopram 20 mg PO DAILY 07/05/16 amlodipine 10 mg PO DAILY 12/29/17 lisinopril [Zestril] 40 mg PO DAILY 08/08/18 metoprolol tartrate 50 mg PO BID #60 tablet 08/10/18 tamsulosin 0.4 mg PO DAILY@1730 #30 cap 04/11/19 metformin 2,000 mg PO DAILY 01/20/21 naproxen 500 mg PO BID PRN #20 tab 01/20/21 Lantus Solostar U-100 Insulin 16 unit SUBCUT QHS 04/15/21 atorvastatin 40 mg PO QHS 04/15/21 bupropion HCl 150 mg PO DAILY 04/15/21 buspirone 5 mg PO BID 04/15/21 gabapentin 600 mg PO TID 04/15/21 glimepiride 4 mg PO DAILY 04/15/21 hydrochlorothiazide 25 mg PO DAILY 04/15/21 zolpidem 10 mg PO QHS PRN 04/15/21 dexamethasone [Decadron] 6 mg PO DAILY #7 tab 04/24/21 Medical Records Data Medical Nutrition Assessment Dietitian: Nutrition Therapy Diagnosis Start: 04/22/21 11:06 Freq: Status: Active Protocol: Document 04/22/21 17:57 RMA (Rec: 04/22/21 17:58 RMA [id number]) Nutrition Malnutrition Evidence of Malnutrition Exists Yes Malnutrition (severe): Acute Illness/Injury Evidenced By Suboptimal Energy Intake ( Severe),Weight Loss (Severe) Clinical Problem Acute Disease or Injury Related Malnutrition Etiology Severe protein-calorie malnutrition in the context of acute illness related to ongoing poor appetite and inability to consume adequate calories Signs/Symptoms as evidenced by ~4% wt loss x 1 week, need for oral nutrition supplements and ongoing poor intake meeting less than 50% estimated nutrition needs. Status Active Problem Recommendation Dietitian Recommendations/Changes Will change diet to Carbohydrate-Controlled/ Cardiac (no caloric restriction). Will d/c glucerna shake w/ medpass and add 120ml TID w/ meals instead. Weight / BMI Weight Weight: 107.7 kg Body Mass Index (BMI) 30.2 ABG / Lab / Microbiology Data Result Diagrams: 04/24/21 06:32 04/24/21 06:32 Laboratory: Laboratory Results - last 24 hr 04/23/21 06:38: Sodium 135 L, Potassium 3.9, Chloride 104, Carbon Dioxide 23.0, Anion Gap 8, BUN 28 H, Creatinine 0.89, Estim Creat Clear Calc 103.90, Est GFR (MDRD) Af Amer 112, Est GFR (MDRD) Non-Af 92, BUN/Creatinine Ratio 31.3 H, Glucose 226 H, Calcium 8.0 L, Magnesium 2.3 04/23/21 12:37: POC Glucose 391 H 04/23/21 16:18: POC Glucose 351 H 04/23/21 20:30: POC Glucose 420 H 04/24/21 06:32: WBC 4.5, RBC 4.72, Hgb 13.0, Hct 41.2, MCV 87.3, MCH 27.5, MCHC 31.6 L, RDW Std Deviation 44.1 H, RDW Coeff of Melanie 13.7, Plt Count 264, MPV 9.4, Immature Gran % (Auto) 0.200, Neut % (Auto) 62.2, Lymph % (Auto) 26.0, [place] % (Auto) 11.6 H, Eos % (Auto) 0.0, Baso % (Auto) 0.0, Absolute Neuts (auto) 2.8, Absolute Lymphs (auto) 1.16, Nucleated RBC % 0 04/24/21 06:32: Sodium 137, Potassium 3.9, Chloride 103, Carbon Dioxide 27.0, Anion Gap 7, BUN 21 H, Creatinine 0.80, Estim Creat Clear Calc 115.59, Est GFR (MDRD) Af Amer 127, Est GFR (MDRD) Non-Af 105, BUN/Creatinine Ratio 26.3 H, Glucose 216 H, Calcium 8.2 L Microbiology: Microbiology 04/21/21 14:00 Blood Culture (Wb) - Anticubital Left Blood Culture - Preliminary No growth in 48 hours. 04/21/21 13:10 Blood Culture (Wb) - Anticubital Right Blood Culture - Preliminary No growth in 48 hours. 04/21/21 17:28 Mucosa - Nasopharyngeal Respiratory Panel (PCR) - Final 04/21/21 19:00 Urine, Clean Catch Legionella Antigen - Final 04/21/21 19:00 Urine, Clean Catch Streptococcus pneumoniae Antigen (M - Final Discharge Plan Admission Admit Date/Time: 04/21/21 17:02 Primary Reason for Your Visit: SARS-CoV-2 pneumonia Attending Provider: Rickey Oropeza Primary Care Provider: Billy De Santiago Discharge Orders/Prescriptions Prescriptions: New dexamethasone [Decadron] 6 mg tablet 6 mg PO DAILY Qty: 7 RF: 0 Continued citalopram 40 MG tablet 20 mg PO DAILY RF: 0 amlodipine 10 MG tablet 10 mg PO DAILY RF: 0 lisinopril [Zestril] 40 MG tablet 40 mg PO DAILY RF: 0 metoprolol tartrate 50 MG tablet 50 mg PO BID Qty: 60 RF: 1 tamsulosin 0.4 MG capsule 0.4 mg PO DAILY@1730 Qty: 30 RF: 0 metformin 500 mg Tablet 2,000 mg PO DAILY RF: 0 naproxen 500 MG tablet 500 mg PO BID PRN Qty: 20 RF: 0 buspirone 5 mg tablet 5 mg PO BID RF: 0 glimepiride 4 mg tablet 4 mg PO DAILY RF: 0 gabapentin 300 mg capsule 600 mg PO TID RF: 0 hydrochlorothiazide 25 mg tablet 25 mg PO DAILY RF: 0 zolpidem 10 mg tablet 10 mg PO QHS PRN (Reason: Insomnia) RF: 0 bupropion HCl 150 mg tablet extended release 24 hr 150 mg PO DAILY RF: 0 Lantus Solostar U-100 Insulin 100 unit/mL (3 mL) insulin pen 16 unit SUBCUT QHS RF: 0 atorvastatin 20 MG tablet 40 mg PO QHS RF: 0 Referrals / Follow Up: Billy De Santiago MD [Primary Care Provider] - In 1 Week
--- NOTE | 2021-04-24 09:46 | PN.HOSP_ITS ---
Subjective Subjective Patient seen complaining of increasing cough. Also admit to increasing fatigue. His oxygen demand is going up Objective Data Objective Data Vital Signs: Vital Signs Temp Pulse Resp BP Pulse Ox 97.6 F L 74 20 H 141/80 H 95 04/24/21 06:25 04/24/21 06:25 04/24/21 06:25 04/24/21 06:25 04/24/21 06:25 Oxygen Flow Rate (L/min) 3 Oxygen Delivery Method Nasal Cannula Weight: 107.7 kg Body Mass Index (BMI) 30.2 Intake & Output: Intake and Output for Last 24 Hours 04/22/21 04/23/21 04/24/21 23:59 23:59 23:59 Intake Total 3377.92 / 3377.92 3065 / 3065 715 / 715 Output Total 2099 / 2099 Balance 1277.92 / 1277.92 1090 / 1090 715 / 715 Medical Nutrition Assessment Dietitian: Nutrition Therapy Diagnosis Start: 04/22/21 11:06 Freq: Status: Active Protocol: Document 04/22/21 17:57 RMA (Rec: 04/22/21 17:58 RMA [id number]) Nutrition Malnutrition Evidence of Malnutrition Exists Yes Malnutrition (severe): Acute Illness/Injury Evidenced By Suboptimal Energy Intake ( Severe),Weight Loss (Severe) Clinical Problem Acute Disease or Injury Related Malnutrition Etiology Severe protein-calorie malnutrition in the context of acute illness related to ongoing poor appetite and inability to consume adequate calories Signs/Symptoms as evidenced by ~4% wt loss x 1 week, need for oral nutrition supplements and ongoing poor intake meeting less than 50% estimated nutrition needs. Status Active Problem Recommendation Dietitian Recommendations/Changes Will change diet to Carbohydrate-Controlled/ Cardiac (no caloric restriction). Will d/c glucerna shake w/ medpass and add 120ml TID w/ meals instead. Lab / Micro Data Result Diagrams: 04/24/21 06:32 04/24/21 06:32 Labs: Laboratory Results - last 24 hr 04/23/21 12:37: POC Glucose 391 H 04/23/21 16:18: POC Glucose 351 H 04/23/21 20:30: POC Glucose 420 H 04/24/21 06:32: WBC 4.5, RBC 4.72, Hgb 13.0, Hct 41.2, MCV 87.3, MCH 27.5, MCHC 31.6 L, RDW Std Deviation 44.1 H, RDW Coeff of Melanie 13.7, Plt Count 264, MPV 9.4, Immature Gran % (Auto) 0.200, Neut % (Auto) 62.2, Lymph % (Auto) 26.0, [place] % (Auto) 11.6 H, Eos % (Auto) 0.0, Baso % (Auto) 0.0, Absolute Neuts (auto) 2.8, Absolute Lymphs (auto) 1.16, Nucleated RBC % 0 04/24/21 06:32: Sodium 137, Potassium 3.9, Chloride 103, Carbon Dioxide 27.0, Anion Gap 7, BUN 21 H, Creatinine 0.80, Estim Creat Clear Calc 115.59, Est GFR (MDRD) Af Amer 127, Est GFR (MDRD) Non-Af 105, BUN/Creatinine Ratio 26.3 H, Glucose 216 H, Calcium 8.2 L Micro: Microbiology 04/21/21 14:00 Blood Culture (Wb) - Anticubital Left Blood Culture - Preliminary No growth in 48 hours. 04/21/21 13:10 Blood Culture (Wb) - Anticubital Right Blood Culture - Preliminary No growth in 48 hours. 04/21/21 17:28 Mucosa - Nasopharyngeal Respiratory Panel (PCR) - Final 04/21/21 19:00 Urine, Clean Catch Legionella Antigen - Final 04/21/21 19:00 Urine, Clean Catch Streptococcus pneumoniae Antigen (M - Final Rhythm Strip Rhythm Strip: Sinus Rhythm Rate: 95 Ectopy: None Physical Exam Narrative GENERAL: cooperative, ill looking HEENT: Atraumatic; EYES; Anicteric, Normal Conjunctiva NECK; supple, normal thyroid, RESPIRATORY: Diminished to auscultation CARDIOVASCULAR: Regular S1 S2, GI: soft, normoactive bowel sounds, : No Renal angle tenderness; EXTREMITIES: No edema, no clubbing, MUSCULOSKELETAL: no muscle waisting NEURO: Awake; no lateralizing signs. SKIN: No Rash PSYCH; Flat affect Assessment & Plan Assessment/Plan (1) Pneumonia due to 2019 novel coronavirus: (2) Hypoxemia: PLAN: Patient is a 60-year-old gentleman recently diagnosed with SARS-CoV-2 who presented to the ED after a week of symptoms. Imaging studies obtained on admission demonstrated bilateral peripheral infiltrates suggestive of Covid pneumonia admitted to regular nursing floor for further management 1. Sepsis secondary to SARS-CoV-2 pneumonia -Patient has been admitted to regular nursing floor managed with supplemental oxygen, Decadron as well as remdesivir in addition to supportive care. Seen this a.m. complains of fatigue -04/23/2021 patient was placed on supplemental oxygen also complains of feeling weak. Currently remains recommended treatment - 04/24/2021 Patient seen complaining of increasing cough. Also admit to increasing fatigue. His oxygen demand is going up. Consultation placed infectious disease 2. Diabetes mellitus type II -patient's oral hypoglycemics held. Placed on long acting insulin, Accu-Cheks a.c. and at bedtime and covered with sliding scale insulin 3. Hypertension - Blood pressure controlled, home medications continued with dose adjustment as needed 4. Dyslipidemia -Patient is on statin therapy, continued at home dose 5. Depression with anxiety ?Patient is on citalopram did continue 6. BPH ?Patient symptoms controlled on tamsulosin did continue 7. DVT prophylaxis - On enoxaparin Charges/Coding Visit Charges Inpatient E&M: 63660 Subs Hosp L2
[2021-04-24 11:25] LABS: Bedside Glucose 205 mg/dL (70-110)
[2021-04-24] MEDS: Aspirin 81 MG TAB.CHEW PO (11:27)
[2021-04-24] MEDS: dexAMETHasone 10 MG/ML Vial 6 MG IV (11:28)
[2021-04-24] MEDS: Citalopram 20 MG Tablet PO (11:28)
[2021-04-24] MEDS: busPIRone 5 MG Tablet PO ×2 (11:28→20:44)
[2021-04-24] MEDS: amLODIPine 10 MG Tablet PO (11:29)
[2021-04-24] MEDS: Lisinopril 40 MG Tablet PO (11:29)
[2021-04-24] MEDS: Famotidine 20 MG Tablet PO ×2 (11:29→20:44)
[2021-04-24] MEDS: hydroCHLOROthiazide 25 MG Tablet PO (11:30)
[2021-04-24] MEDS: Metoprolol Tartrate 50 MG Tablet PO ×2 (11:30→20:45)
[2021-04-24] MEDS: buPROPion (XL) 150 MG TABLET.XL PO (11:30)
[2021-04-24] MEDS: Enoxaparin 40 MG/0.4 ML Syringe SC (11:36)
[2021-04-24 11:51] LABS: Bedside Glucose 368 mg/dL (70-110)
[2021-04-24] MEDS: Tamsulosin HCl 0.4 MG Capsule PO (17:31)
[2021-04-24 17:41] LABS: Bedside Glucose 312 mg/dL (70-110)
[2021-04-24] MEDS: MELATONIN 3 MG TABLET PO (20:44)
[2021-04-24] MEDS: Acetaminophen 325 MG Tablet 650 MG PO (20:45)
[2021-04-24] MEDS: oxyCODONE 5 MG Tablet PO (20:45)
[2021-04-24] MEDS: Atorvastatin Calcium 20 MG Tablet PO (20:45)
[2021-04-24 21:01] LABS: Bedside Glucose 401 mg/dL (70-110)
[2021-04-25] VITALS (17 sets, daily range): BP systolic 119–157; BP diastolic 68–96; PULSE 47–86; RESP 17–22; TEMP 35.7–36.4; O2SAT 92–96
[2021-04-25] MEDS: 0.9% Normal Saline 1,000 ML 100 ML IV ×2 (03:04→20:58)
[2021-04-25] MEDS: Gabapentin 600 MG Tablet PO ×3 (06:14→20:54)
[2021-04-25] MEDS: Insulin Lispro 100 UNIT/ML INSULN.PEN SC ×4 (06:15→20:56)
[2021-04-25 06:30] LABS: Bedside Glucose 325 mg/dL (70-110)
[2021-04-25 07:13] LABS: Absolute Lymphocyte Count 1.22 X10^3/uL (0.83-4.51); Absolute Neutrophil Count 3.7 X10^3/uL (2.0-7.7); Hematocrit 40.9 % (40-54); Hemoglobin 13.4 g/dL (13.0-16.5); Lymphocyte # 1.22 X10^3/ul (0.83-4.51); Lymphocyte % 22.3 % (19-41); Mean Corp Hgb Conc 32.8 g/dL (32-36); Mean Corpuscular Hgb 28.3 pg (27.0-32.0); Mean Corpuscular Volume 86.3 fL (80-94); Mean Platelet Vol. 9.6 fl (6.2-12.0); Monocyte# 0.54 X10^3/uL; Monocyte% 9.9 % (0-10); NRBC Flagged by Analyzer 0 % (0-5); Neutrophil # 3.68 X10^3/uL (2.7-7.7); Neutrophil % 67.4 % (47-70); Platelet Count 274 K/mm3 (150-450); RBC Distribution Width CV 13.4 % (11.6-14.6); RBC Distribution Width SD 42.8 fl (35.1-43.9); Red Blood Count 4.74 M/mm3 (4.6-6.2); White Blood Count 5.5 K/mm3 (4.4-11.0)
--- NOTE | 2021-04-25 07:31 | PN.HOSP_ITS ---
Subjective Subjective Patient seen still appears ill looking and fatigued. He still has persistent cough. Consult was placed to ID Objective Data Objective Data Vital Signs: Vital Signs Temp Pulse Resp BP Pulse Ox 97.6 F L 65 19 H 155/96 H 95 04/25/21 02:42 04/25/21 03:06 04/25/21 02:42 04/25/21 02:42 04/25/21 02:42 Oxygen Flow Rate (L/min) 3.5 Oxygen Delivery Method Nasal Cannula Weight: 108.771 kg Body Mass Index (BMI) 30.2 Intake & Output: Intake and Output for Last 24 Hours 04/23/21 04/24/21 04/25/21 23:59 23:59 23:59 Intake Total 3065 / 3065 965 / 1405 1846.67 / 1846.67 Output Total 1974 1175 / 2050 2575 / 2575 Balance 1090 / 1090 -210 / -645 -728.33 / -728.33 Medical Nutrition Assessment Dietitian: Nutrition Therapy Diagnosis Start: 04/22/21 11:06 Freq: Status: Active Protocol: Document 04/24/21 13:23 BP (Rec: 04/24/21 13:23 BP [id number]) Nutrition Malnutrition Evidence of Malnutrition Exists Yes Malnutrition (severe): Acute Illness/Injury Evidenced By Suboptimal Energy Intake ( Severe),Weight Loss (Severe) Clinical Problem Acute Disease or Injury Related Malnutrition Etiology Severe protein-calorie malnutrition in the context of acute illness related to ongoing poor appetite and inability to consume adequate calories Signs/Symptoms as evidenced by ~4% wt loss x 1 week, need for oral nutrition supplements and ongoing poor intake meeting less than 50% estimated nutrition needs. Status Active Problem Recommendation Dietitian Recommendations/Changes Continue Carbohydrate- Controlled/Cardiac & 120ml Glucerna TID w/ meals. Lab / Micro Data Result Diagrams: 04/25/21 06:30 04/25/21 06:30 Labs: Laboratory Results - last 24 hr 04/24/21 06:34: POC Glucose 205 H 04/24/21 11:26: POC Glucose 368 H 04/24/21 17:29: POC Glucose 312 H 04/24/21 20:41: POC Glucose 401 H 04/25/21 06:13: POC Glucose 325 H 04/25/21 06:30: WBC 5.5, RBC 4.74, Hgb 13.4, Hct 40.9, MCV 86.3, MCH 28.3, MCHC 32.8, RDW Std Deviation 42.8, RDW Coeff of Melanie 13.4, Plt Count 274, MPV 9.6, Immature Gran % (Auto) 0.400, Neut % (Auto) 67.4, Lymph % (Auto) 22.3, Collier % (Auto) 9.9, Eos % (Auto) 0.0, Baso % (Auto) 0.0, Absolute Neuts (auto) 3.7, Absolute Lymphs (auto) 1.22, Nucleated RBC % 0 Micro: Microbiology 04/21/21 14:00 Blood Culture (Wb) - Anticubital Left Blood Culture - Preliminary No growth in 48 hours. 04/21/21 13:10 Blood Culture (Wb) - Anticubital Right Blood Culture - Preliminary No growth in 48 hours. 04/21/21 17:28 Mucosa - Nasopharyngeal Respiratory Panel (PCR) - Final 04/21/21 19:00 Urine, Clean Catch Legionella Antigen - Final 04/21/21 19:00 Urine, Clean Catch Streptococcus pneumoniae Antigen (M - Final Rhythm Strip Rhythm Strip: Sinus Rhythm Rate: 95 Ectopy: None Physical Exam Narrative GENERAL: cooperative, ill looking HEENT: Atraumatic; EYES; Anicteric, Normal Conjunctiva NECK; supple, normal thyroid, RESPIRATORY: Diminished to auscultation CARDIOVASCULAR: Regular S1 S2, GI: soft, normoactive bowel sounds, : No Renal angle tenderness; EXTREMITIES: No edema, no clubbing, MUSCULOSKELETAL: no muscle waisting NEURO: Awake; no lateralizing signs. SKIN: No Rash PSYCH; Flat affect Assessment & Plan Assessment/Plan (1) Pneumonia due to 2019 novel coronavirus: (2) Hypoxemia: PLAN: Patient is a 60-year-old gentleman recently diagnosed with SARS-CoV-2 who presented to the ED after a week of symptoms. Imaging studies obtained on admission demonstrated bilateral peripheral infiltrates suggestive of Covid pneumonia admitted to regular nursing floor for further management 1. Sepsis secondary to SARS-CoV-2 pneumonia -Patient has been admitted to regular nursing floor managed with supplemental oxygen, Decadron as well as remdesivir in addition to supportive care. Seen this a.m. complains of fatigue -04/23/2021 patient was placed on supplemental oxygen also complains of feeling weak. Currently remains recommended treatment - 04/24/2021 Patient seen complaining of increasing cough. Also admit to increasing fatigue. His oxygen demand is going up. Consultation placed infectious disease ?04/25/2021; no significant change in patient's clinical condition. Remains on remdesivir and Decadron in consultation was placed to infectious disease the day prior 2. Diabetes mellitus type II -patient's oral hypoglycemics held. Placed on long acting insulin, Accu-Cheks a.c. and at bedtime and covered with sliding scale insulin 3. Hypertension - Blood pressure controlled, home medications continued with dose adjustment as needed 4. Dyslipidemia -Patient is on statin therapy, continued at home dose 5. Depression with anxiety ?Patient is on citalopram did continue 6. BPH ?Patient symptoms controlled on tamsulosin did continue 7. DVT prophylaxis - On enoxaparin Charges/Coding Visit Charges Inpatient E&M: 29492 Subs Hosp L2
[2021-04-25 07:43] LABS: Anion Gap 6 (5-15); BUN 19 mg/dL (7-18); BUN/Creat Ratio 25.8 RATIO (10-20); Calcium,Total 8.2 mg/dL (8.5-10.1); Chloride 102 mmol/L (98-107); Creatinine, Serum 0.74 mg/dL (0.70-1.30); EST Glomerular Filtration Rate 115 mL/min (>60); Est Glom Filt Rate - Afr Amer 140 mL/min (>60); Estimated Creatinine Clearance 124.97 ml/min; Glucose 315 mg/dL (74-106); Potassium 4.1 mmol/L (3.5-5.1); Sodium Level 134 mmol/L (136-145)
[2021-04-25] MEDS: Lisinopril 40 MG Tablet PO (09:19)
[2021-04-25] MEDS: Enoxaparin 40 MG/0.4 ML Syringe SC (09:19)
[2021-04-25] MEDS: buPROPion (XL) 150 MG TABLET.XL PO (09:19)
[2021-04-25] MEDS: Citalopram 20 MG Tablet PO (09:20)
[2021-04-25] MEDS: busPIRone 5 MG Tablet PO ×2 (09:20→20:54)
[2021-04-25] MEDS: Aspirin 81 MG TAB.CHEW PO (09:20)
[2021-04-25] MEDS: Metoprolol Tartrate 50 MG Tablet PO ×2 (09:20→20:54)
[2021-04-25] MEDS: Famotidine 20 MG Tablet PO ×2 (09:20→20:54)
[2021-04-25] MEDS: amLODIPine 10 MG Tablet PO (09:20)
[2021-04-25] MEDS: hydroCHLOROthiazide 25 MG Tablet PO (09:20)
[2021-04-25] MEDS: dexAMETHasone 10 MG/ML Vial 6 MG IV (09:21)
[2021-04-25] MEDS: Insulin Lispro 100 UNIT/ML INSULN.PEN 10 UNIT SC ×2 (12:38→16:58)
[2021-04-25 12:54] LABS: AST(SGOT) 27 U/L (15-37); Alanine Aminotransfer ALT/SGPT 40 U/L (16-61); Albumin, Serum 2.4 g/dL (3.2-5.0); Alkaline Phosphatase 81 U/L (45-117); Bilirubin, Direct 0.15 mg/dL (0.00-0.30); Globulin 3.8 g/dL (2.2-4.2); Protein, Total 6.2 g/dL (6.4-8.2)
[2021-04-25 14:21] LABS: Bedside Glucose > 500 mg/dL (70-110)
--- NOTE | 2021-04-25 15:11 | PCM.CONS.GEN ---
Assessment & Plan Assessment/Plan (1) Pneumonia due to 2019 novel coronavirus: PLAN: Sx started 04/14/21. Unvaccinated, and son also sick. Recommend vaccine after 20 days of quarantine from start of symptoms. On 10 day course of dex, 5 day course of remdesivir. O2 improving. Will follow, thank you (2) Hypoxemia: HPI Consult Data Date of Consult: 04/25/21 HPI Narrative HPI Narrative: ASHWINI HAYES, is a 60 M who presented 04/21 with one week of fever, chills, cough, dyspnea, headache, body aches. Unvaccinated for covid, also sick at home. Son with mild illness. Came to ED, admitted on dex/remdesivir, feeling a little better, but still some cough/dyspnea/hypoxia. Full ROS performed and neg except as noted above. [facility] Medical History Benign essential hypertension BPH (benign prostatic hyperplasia) Depression Diabetes Diabetes mellitus type 2 in obese Hyperlipidemia TIA (transient ischemic attack) Home Medications citalopram 20 mg PO DAILY 07/05/16 [History Last Taken 08/07/18] amlodipine 10 mg PO DAILY 12/29/17 [History Last Taken 08/07/18] lisinopril [Zestril] 40 mg PO DAILY 08/08/18 [History Last Taken 08/07/18] metoprolol tartrate 50 mg PO BID #60 tablet 08/10/18 [Rx Last Taken Unknown] tamsulosin 0.4 mg PO DAILY@1730 #30 cap 04/11/19 [Rx Last Taken Unknown] metformin 2,000 mg PO DAILY 01/20/21 [History Last Taken Unknown] naproxen 500 mg PO BID PRN #20 tab 01/20/21 [Rx Last Taken Unknown] Lantus Solostar U-100 Insulin 16 unit SUBCUT QHS 04/15/21 [History Last Taken Unknown] atorvastatin 40 mg PO QHS 04/15/21 [History Last Taken Unknown] bupropion HCl 150 mg PO DAILY 04/15/21 [History Last Taken Unknown] buspirone 5 mg PO BID 04/15/21 [History Last Taken Unknown] gabapentin 600 mg PO TID 04/15/21 [History Last Taken Unknown] glimepiride 4 mg PO DAILY 04/15/21 [History Last Taken Unknown] hydrochlorothiazide 25 mg PO DAILY 04/15/21 [History Last Taken Unknown] zolpidem 10 mg PO QHS PRN 04/15/21 [History Last Taken Unknown] dexamethasone [Decadron] 6 mg PO DAILY #7 tab 04/24/21 [Rx Last Taken Unknown] Allergy/AdvReac Type Severity Reaction Status Date / Time Iodinated Contrast Media [CT] Allergy Rash Verified 04/21/21 13:01 iohexol [From Omnipaque] Allergy Rash Verified 04/21/21 13:01 Family History (Updated 04/21/21 @ 17:[address] Kirsten Vogel MD) Mother Brain aneurysm age 65 with ruptured aneurysm. Father Diabetes Surgical History History of appendectomy History of back surgery History of knee joint replacement History of tonsillectomy Social History (Updated 04/21/21 @ 17:[address] Kirsten Vogel MD) household members: spouse Smoking Status: Never smoker alcohol intake: never substance use type: does not use Physical Exam Const alert and oriented x3 General Appearance: cooperative Exam Limitations: no limitations HEENT normocephalic and head/scalp atraumatic Eyes PERRL and EOMs intact bilaterally Neck supple and No nodes Resp clear to auscultation bilaterally Auscultation: diminished lung sounds Cardio regular rate and regular rhythm GI normal to inspection, nondistended, normoactive bowel sounds Extremity no clubbing, cyanosis or edema Skin no rashes or lesions noted Neuro CN's II-XII intact bilaterally Medical Records Data Medical Nutrition Assessment Dietitian: Nutrition Therapy Diagnosis Start: 04/22/21 11:06 Freq: Status: Active Protocol: Document 04/24/21 13:23 BP (Rec: 04/24/21 13:23 BP [id number]) Nutrition Malnutrition Evidence of Malnutrition Exists Yes Malnutrition (severe): Acute Illness/Injury Evidenced By Suboptimal Energy Intake ( Severe),Weight Loss (Severe) Clinical Problem Acute Disease or Injury Related Malnutrition Etiology Severe protein-calorie malnutrition in the context of acute illness related to ongoing poor appetite and inability to consume adequate calories Signs/Symptoms as evidenced by ~4% wt loss x 1 week, need for oral nutrition supplements and ongoing poor intake meeting less than 50% estimated nutrition needs. Status Active Problem Recommendation Dietitian Recommendations/Changes Continue Carbohydrate- Controlled/Cardiac & 120ml Glucerna TID w/ meals. Lab / Micro Data Result Diagrams: 04/25/21 06:30 04/25/21 06:30 Labs: Laboratory Results - last 24 hr 04/24/21 17:29: POC Glucose 312 H 04/24/21 20:41: POC Glucose 401 H 04/25/21 06:13: POC Glucose 325 H 04/25/21 06:30: WBC 5.5, RBC 4.74, Hgb 13.4, Hct 40.9, MCV 86.3, MCH 28.3, MCHC 32.8, RDW Std Deviation 42.8, RDW Coeff of Melanie 13.4, Plt Count 274, MPV 9.6, Immature Gran % (Auto) 0.400, Neut % (Auto) 67.4, Lymph % (Auto) 22.3, Eddy % (Auto) 9.9, Eos % (Auto) 0.0, Baso % (Auto) 0.0, Absolute Neuts (auto) 3.7, Absolute Lymphs (auto) 1.22, Nucleated RBC % 0 04/25/21 06:30: Sodium 134 L, Potassium 4.1, Chloride 102, Carbon Dioxide 26.0, Anion Gap 6, BUN 19 H, Creatinine 0.74, Estim Creat Clear Calc 124.97, Est GFR (MDRD) Af Amer 140, Est GFR (MDRD) Non-Af 115, BUN/Creatinine Ratio 25.8 H, Glucose 315 H, Calcium 8.2 L 04/25/21 06:30: Total Bilirubin 0.50, Direct Bilirubin 0.15, AST 27, ALT 40, Alkaline Phosphatase 81, Total Protein 6.2 L, Albumin 2.4 L, Globulin 3.8 04/25/21 14:00: POC Glucose > 500 H* Rhythm Strip Rhythm Strip: Sinus Rhythm Rate: 95 Ectopy: None
--- NOTE | 2021-04-25 15:57 | CASEMGMT ---
Social Work Note SW updated that pt would like to redo HCPOA. SW in to speak with pt. SW introduced self and role at [facility]. Pt states he would like to redo his HCPOA naming his sister to be his HCPOA at this time as pt's currently has COVID. SW informed pt that HCPOA can be changed but if he eventually wants his to be his HCPOA again he will need to complete documents again. Pt states understanding, still prefers to redo HCPOA at this time. Pt completed HCPOA, states he doens't need to redo LW. SW informed pt that once he wants to redo HCPOA again, then he can call [facility] and schedule an appointment as an outpatient to complete HCPOA again. Pt states understanding. Copy of HCPOA placed on pt's chart. YU asked RN to provide pt with HCPOA original when she returns to pt's room as pt does have COVID. RN states understanding. Mireya Santiago ACCESSIONER, CLEARANCE REPRESENTATIVE
[2021-04-25] MEDS: Tamsulosin HCl 0.4 MG Capsule PO (16:40)
[2021-04-25] MEDS: Acetaminophen 325 MG Tablet 650 MG PO ×2 (16:40→20:54)
[2021-04-25] MEDS: 0.9% Saline Lock 10 ML Syringe IV (16:59)
[2021-04-25 17:10] LABS: Bedside Glucose 428 mg/dL (70-110)
[2021-04-25 17:53] LABS: Bacteria 0 SEEN /hpf (None Seen); Mucous, Urine 0 SEEN /hpf (<or=2+); Red Blood Cells-Urine 0 SEEN /hpf (0-5); Squamous Epithelial Cells - UA 0 SEEN /hpf (0-5); White Blood Cells 0 SEEN /hpf (0-5)
[2021-04-25 18:05] LABS: Color, Urine Yellow (Yellow); Glucose, Dipstick 1000 mg/dl (Normal); Ketone-Dipstick Negative (Negative); Leukocyte Esterase-Dipstick Negative /ul (Negative); Nitrite-Dipstick Negative (Negative); Occult Blood-Urine Negative /ul (Negative); Protein-Dipstick Negative (Negative); Urine Bilirubin Dipstick Negative (Negative); Urine Clarity Clear (Clear); Urine Urobilinogen Normal (Normal)
[2021-04-25 18:43] LABS: Anion Gap 8 (5-15); BUN 25 mg/dL (7-18); BUN/Creat Ratio 26.2 RATIO (10-20); Chloride 99 mmol/L (98-107); Creatinine, Serum 0.95 mg/dL (0.70-1.30); EST Glomerular Filtration Rate 86 mL/min (>60); Est Glom Filt Rate - Afr Amer 104 mL/min (>60); Estimated Creatinine Clearance 97.34 ml/min; Glucose 406 mg/dL (74-106); Sodium Level 131 mmol/L (136-145)
[2021-04-25] MEDS: Atorvastatin Calcium 20 MG Tablet PO (20:54)
[2021-04-25] MEDS: MELATONIN 3 MG TABLET PO (20:54)
[2021-04-25] MEDS: guaiFENesin 10 ML UDC (200MG/10ML) 20 ML PO (20:54)
[2021-04-25 21:11] LABS: Bedside Glucose 310 mg/dL (70-110)
[2021-04-25 23:26] LABS: Bedside Glucose > 500 mg/dL (70-110)
[2021-04-26] VITALS (15 sets, daily range): BP systolic 126–160; BP diastolic 64–94; PULSE 50–88; RESP 16–20; TEMP 35.8–36.6; O2SAT 92–96
[2021-04-26] MEDS: 0.9% Saline Lock 10 ML Syringe IV ×2 (02:53→09:39)
[2021-04-26] MEDS: Ondansetron 4 MG/2 ML Vial IV (02:53)
[2021-04-26] MEDS: proCHLORPERazine 10 MG/2 ML Vial 5 MG IV (06:30)
[2021-04-26] MEDS: Gabapentin 600 MG Tablet PO ×3 (06:32→22:09)
[2021-04-26] MEDS: Insulin Lispro 100 UNIT/ML INSULN.PEN SC ×4 (06:32→22:11)
[2021-04-26] MEDS: 0.9% Normal Saline 1,000 ML 100 ML IV ×2 (06:34→20:32)
[2021-04-26] MEDS: Insulin Lispro 100 UNIT/ML INSULN.PEN 10 UNIT SC ×3 (06:34→17:15)
[2021-04-26 06:45] LABS: Bedside Glucose 253 mg/dL (70-110)
--- NOTE | 2021-04-26 08:01 | PCM.PN.HOSP ---
Subjective Subjective Patient seen admit to improvement in his overall condition compared to previous day. Currently off oxygen Objective Data Objective Data Vital Signs: Vital Signs Temp Pulse Resp BP Pulse Ox 97.8 F 50 L 17 138/80 H 95 04/26/21 02:56 04/26/21 07:43 04/26/21 02:56 04/26/21 02:56 04/26/21 07:58 Oxygen Flow Rate (L/min) 3 Oxygen Delivery Method Nasal Cannula Weight: 108.046 kg Body Mass Index (BMI) 30.2 Intake & Output: Intake and Output for Last 24 Hours 04/24/21 04/25/21 04/26/21 23:59 23:59 23:59 Intake Total 965 / 1405 4476.67 / 4996.67 1955 / 1955 Output Total 1175 / 2050 5875 / 6625 1450 / 1450 Balance -210 / -645 -1398.33 / -1628.33 505 / 505 Medical Nutrition Assessment Dietitian: Nutrition Therapy Diagnosis Start: 04/22/21 11:06 Freq: Status: Active Protocol: Document 04/24/21 13:23 BP (Rec: 04/24/21 13:23 BP [id number]) Nutrition Malnutrition Evidence of Malnutrition Exists Yes Malnutrition (severe): Acute Illness/Injury Evidenced By Suboptimal Energy Intake ( Severe),Weight Loss (Severe) Clinical Problem Acute Disease or Injury Related Malnutrition Etiology Severe protein-calorie malnutrition in the context of acute illness related to ongoing poor appetite and inability to consume adequate calories Signs/Symptoms as evidenced by ~4% wt loss x 1 week, need for oral nutrition supplements and ongoing poor intake meeting less than 50% estimated nutrition needs. Status Active Problem Recommendation Dietitian Recommendations/Changes Continue Carbohydrate- Controlled/Cardiac & 120ml Glucerna TID w/ meals. Lab / Micro Data Result Diagrams: 04/25/21 06:30 04/25/21 18:07 Labs: Laboratory Results - last 24 hr 04/25/21 06:30: Total Bilirubin 0.50, Direct Bilirubin 0.15, AST 27, ALT 40, Alkaline Phosphatase 81, Total Protein 6.2 L, Albumin 2.4 L, Globulin 3.8 04/25/21 11:35: POC Glucose > 500 H* 04/25/21 14:00: POC Glucose > 500 H* 04/25/21 16:39: POC Glucose 428 H 04/25/21 17:20: Urine Color Yellow, Urine Clarity Clear, Urine pH 6.0, Ur Specific Cutler 1.010, Urine Protein Negative, Urine Glucose (UA) 1000 H, Urine Ketones Negative, Urine Occult Blood Negative, Urine Nitrite Negative, Urine Bilirubin Negative, Urine Urobilinogen Normal, Ur Leukocyte Esterase Negative, Urine RBC 0 SEEN, Urine WBC 0 SEEN, Ur Squamous Epith Cells 0 SEEN, Urine Bacteria 0 SEEN, Urine Mucus 0 SEEN 04/25/21 18:07: Sodium 131 L, Potassium 4.0, Chloride 99, Carbon Dioxide 24.0, Anion Gap 8, BUN 25 H, Creatinine 0.95, Estim Creat Clear Calc 97.34, Est GFR (MDRD) Af Amer 104, Est GFR (MDRD) Non-Af 86, BUN/Creatinine Ratio 26.2 H, Glucose 406 H, Calcium 9.0 04/25/21 20:48: POC Glucose 310 H 04/26/21 06:29: POC Glucose 253 H Micro: Microbiology 04/21/21 14:00 Blood Culture (Wb) - Anticubital Left Blood Culture - Preliminary No growth in 48 hours. 04/21/21 13:10 Blood Culture (Wb) - Anticubital Right Blood Culture - Preliminary No growth in 48 hours. 04/21/21 17:28 Mucosa - Nasopharyngeal Respiratory Panel (PCR) - Final 04/21/21 19:00 Urine, Clean Catch Legionella Antigen - Final 04/21/21 19:00 Urine, Clean Catch Streptococcus pneumoniae Antigen (M - Final Rhythm Strip Rhythm Strip: Sinus Rhythm Rate: 95 Ectopy: None Physical Exam Narrative GENERAL: cooperative, ill looking HEENT: Atraumatic; EYES; Anicteric, Normal Conjunctiva NECK; supple, normal thyroid, RESPIRATORY: Diminished to auscultation CARDIOVASCULAR: Regular S1 S2, GI: soft, normoactive bowel sounds, : No Renal angle tenderness; EXTREMITIES: No edema, no clubbing, MUSCULOSKELETAL: no muscle waisting NEURO: Awake; no lateralizing signs. SKIN: No Rash PSYCH; Flat affect Assessment & Plan Assessment/Plan (1) Pneumonia due to 2019 novel coronavirus: (2) Hypoxemia: PLAN: Patient is a 60-year-old gentleman recently diagnosed with SARS-CoV-2 who presented to the ED after a week of symptoms. Imaging studies obtained on admission demonstrated bilateral peripheral infiltrates suggestive of Covid pneumonia admitted to regular nursing floor for further management 1. Sepsis secondary to SARS-CoV-2 pneumonia -Patient has been admitted to regular nursing floor managed with supplemental oxygen, Decadron as well as remdesivir in addition to supportive care. Seen this a.m. complains of fatigue -04/23/2021 patient was placed on supplemental oxygen also complains of feeling weak. Currently remains recommended treatment - 04/24/2021 Patient seen complaining of increasing cough. Also admit to increasing fatigue. His oxygen demand is going up. Consultation placed infectious disease ?04/25/2021; no significant change in patient's clinical condition. Remains on remdesivir and Decadron in consultation was placed to infectious disease the day prior -04/26/2021.Patient seen admit to improvement in his overall condition compared to previous day. Currently off oxygen, plan is to assess oxygen needs with ambulation prior to making a decision on discharge 2. Diabetes mellitus type II -patient's oral hypoglycemics held. Placed on long acting insulin, Accu-Cheks a.c. and at bedtime and covered with sliding scale insulin 3. Hypertension - Blood pressure controlled, home medications continued with dose adjustment as needed 4. Dyslipidemia -Patient is on statin therapy, continued at home dose 5. Depression with anxiety ?Patient is on citalopram did continue 6. BPH ?Patient symptoms controlled on tamsulosin did continue 7. DVT prophylaxis - On enoxaparin Charges/Coding Visit Charges Inpatient E&M: 26428 Subs Hosp L2
[2021-04-26] MEDS: Citalopram 20 MG Tablet PO (09:40)
[2021-04-26] MEDS: Famotidine 20 MG Tablet PO ×2 (09:40→22:09)
[2021-04-26] MEDS: buPROPion (XL) 150 MG TABLET.XL PO (09:40)
[2021-04-26] MEDS: Lisinopril 40 MG Tablet PO (09:40)
[2021-04-26] MEDS: hydroCHLOROthiazide 25 MG Tablet PO (09:40)
[2021-04-26] MEDS: amLODIPine 10 MG Tablet PO (09:40)
[2021-04-26] MEDS: Metoprolol Tartrate 50 MG Tablet PO ×2 (09:40→22:09)
[2021-04-26] MEDS: Enoxaparin 40 MG/0.4 ML Syringe SC (09:40)
[2021-04-26] MEDS: busPIRone 5 MG Tablet PO ×2 (09:40→22:09)
[2021-04-26] MEDS: Aspirin 81 MG TAB.CHEW PO (09:40)
[2021-04-26] MEDS: dexAMETHasone 10 MG/ML Vial 6 MG IV (09:41)
[2021-04-26] MEDS: Acetaminophen 325 MG Tablet 650 MG PO ×2 (09:47→22:08)
[2021-04-26 12:56] LABS: Bedside Glucose 398 mg/dL (70-110)
[2021-04-26] MEDS: Tamsulosin HCl 0.4 MG Capsule PO (17:15)
[2021-04-26 17:21] LABS: Bedside Glucose 381 mg/dL (70-110)
[2021-04-26] MEDS: Atorvastatin Calcium 20 MG Tablet PO (22:09)
[2021-04-26 22:21] LABS: Bedside Glucose 298 mg/dL (70-110)
[2021-04-27 03:07] VITALS: BP 175/99; PULSE 59; RESP 18; TEMP 36.2; O2SAT 96
[2021-04-27 03:15] VITALS: BP 175/99; PULSE 59
[2021-04-27] MEDS: hydrALAZINE 20 MG/ML Vial 10 MG IV (03:15)
[2021-04-27] MEDS: 0.9% Saline Lock 10 ML Syringe IV (03:17)
[2021-04-27 05:33] VITALS: PULSE 57
[2021-04-27 05:46] VITALS: BP 146/80; PULSE 61
[2021-04-27] MEDS: 0.9% Normal Saline 1,000 ML 100 ML IV (05:46)
[2021-04-27] MEDS: Gabapentin 600 MG Tablet PO (05:47)
--- NOTE | 2021-04-27 07:24 | DS.PCM_ITS ---
Providers Date of Admission: 04/21/21 Primary Care Physician: Dr. Billy De Santiago MD Consultations 04/24/21 09:52 Consult: Infectious Disease Routine Consulting Provider: Delfin Guzman Reason for Consult: covid EMERGENT Consult: No MD Notified: Yes Date Notified: 04/24/21 Time Notified: 10:58 Method of Notification: Verbal Reason For Visit: COVID PNA / SEPSIS / HYPOXIA Diagnosis Discharge Diagnosis (1) Pneumonia due to 2019 novel coronavirus: Status: Acute Code(s): U07.1 - COVID-19; J12.82 - Pneumonia due to coronavirus disease 2019 (2) Hypoxemia: Status: Acute Code(s): R09.02 - Hypoxemia Medications at Discharge Home Medications citalopram 20 mg PO DAILY 07/05/16 amlodipine 10 mg PO DAILY 12/29/17 lisinopril [Zestril] 40 mg PO DAILY 08/08/18 metoprolol tartrate 50 mg PO BID #60 tablet 08/10/18 tamsulosin 0.4 mg PO DAILY@1730 #30 cap 04/11/19 metformin 2,000 mg PO DAILY 01/20/21 naproxen 500 mg PO BID PRN #20 tab 01/20/21 Lantus Solostar U-100 Insulin 16 unit SUBCUT QHS 04/15/21 atorvastatin 40 mg PO QHS 04/15/21 bupropion HCl 150 mg PO DAILY 04/15/21 buspirone 5 mg PO BID 04/15/21 gabapentin 600 mg PO TID 04/15/21 glimepiride 4 mg PO DAILY 04/15/21 hydrochlorothiazide 25 mg PO DAILY 04/15/21 zolpidem 10 mg PO QHS PRN 04/15/21 dexamethasone [Decadron] 6 mg PO DAILY #7 tab 04/24/21 Hospital Course Summary of Care Provided Minutes Spent on Discharge: 35 Hospital Course: Patient is a 60-year-old gentleman recently diagnosed with SARS-CoV-2 who presented to the ED after a week of symptoms. Imaging studies obtained on admission demonstrated bilateral peripheral infiltrates suggestive of Covid pneumonia admitted to regular nursing floor for further management 1. Sepsis secondary to SARS-CoV-2 pneumonia -Patient has been admitted to regular nursing floor managed with supplemental oxygen, Decadron as well as remdesivir in addition to supportive care. Seen this a.m. complains of fatigue -04/23/2021 patient was placed on supplemental oxygen also complains of feeling weak. Currently remains recommended treatment - 04/24/2021 Patient seen complaining of increasing cough. Also admit to increasing fatigue. His oxygen demand is going up. Consultation placed infectious disease ?04/25/2021; no significant change in patient's clinical condition. Remains on remdesivir and Decadron in consultation was placed to infectious disease the day prior -04/26/2021.Patient seen admit to improvement in his overall condition compared to previous day. Currently off oxygen, plan is to assess oxygen needs with ambulation prior to making a decision on discharge - 04/27/2021; stable for Discharge 2. Diabetes mellitus type II -patient's oral hypoglycemics held. Placed on long acting insulin, Accu-Cheks a.c. and at bedtime and covered with sliding scale insulin 3. Hypertension - Blood pressure controlled, home medications continued with dose adjustment as needed 4. Dyslipidemia -Patient is on statin therapy, continued at home dose 5. Depression with anxiety ?Patient is on citalopram did continue 6. BPH ?Patient symptoms controlled on tamsulosin did continue 7. DVT prophylaxis - On enoxaparin Physical Exam Narrative GENERAL: cooperative, HEENT: Atraumatic; EYES; Anicteric, Normal Conjunctiva NECK; supple, normal thyroid, RESPIRATORY: Diminished to auscultation CARDIOVASCULAR: Regular S1 S2, GI: soft, normoactive bowel sounds, : No Renal angle tenderness; EXTREMITIES: No edema, no clubbing, MUSCULOSKELETAL: no muscle waisting NEURO: Awake; no lateralizing signs. SKIN: No Rash PSYCH; Flat affect Medical Records Data Medical Nutrition Assessment Dietitian: Nutrition Therapy Diagnosis Start: 04/22/21 11:06 Freq: Status: Active Protocol: Document 04/24/21 13:23 BP (Rec: 04/24/21 13:23 BP [id number]) Nutrition Malnutrition Evidence of Malnutrition Exists Yes Malnutrition (severe): Acute Illness/Injury Evidenced By Suboptimal Energy Intake ( Severe),Weight Loss (Severe) Clinical Problem Acute Disease or Injury Related Malnutrition Etiology Severe protein-calorie malnutrition in the context of acute illness related to ongoing poor appetite and inability to consume adequate calories Signs/Symptoms as evidenced by ~4% wt loss x 1 week, need for oral nutrition supplements and ongoing poor intake meeting less than 50% estimated nutrition needs. Status Active Problem Recommendation Dietitian Recommendations/Changes Continue Carbohydrate- Controlled/Cardiac & 120ml Glucerna TID w/ meals. Weight / BMI Weight Weight: 108 kg Body Mass Index (BMI) 30.2 ABG / Lab / Microbiology Data Result Diagrams: 04/25/21 06:30 04/25/21 18:07 Laboratory: Laboratory Results - last 24 hr 04/26/21 12:41: POC Glucose 398 H 04/26/21 17:08: POC Glucose 381 H 04/26/21 22:03: POC Glucose 298 H Microbiology: Microbiology 04/21/21 14:00 Blood Culture (Wb) - Anticubital Left Blood Culture - Final No growth in 5 days. 04/21/21 13:10 Blood Culture (Wb) - Anticubital Right Blood Culture - Final No growth in 5 days. 04/26/21 02:33 Stool C. difficile GDH Antigen & Toxins - Final 04/26/21 02:33 Stool C. difficile DNA Amplification - Final 04/21/21 17:28 Mucosa - Nasopharyngeal Respiratory Panel (PCR) - Final 04/21/21 19:00 Urine, Clean Catch Legionella Antigen - Final 04/21/21 19:00 Urine, Clean Catch Streptococcus pneumoniae Antigen (M - Beth l D/C Instructions Discharge Diet: 1800 Calorie Control Diet Discharge Activity: Return to Normal Activity Call your doctor if you observe: Fever of 101 or Higher, Shortness of breath, Fainting spells and Chest pain Additional Dressing/Incision Instructions: Patient to current time until May 05, 2021 Meaningful Use Info Meaningful Use Diagnoses (Choose all that apply): None applicable Discharge Plan Admission Admit Date/Time: 04/21/21 17:02 Primary Reason for Your Visit: SARS-CoV-2 pneumonia Attending Provider: Rickey Oropeza Primary Care Provider: Billy De Santiago Consulting Providers: Delfin Guzman Discharge Orders/Prescriptions Prescriptions: New dexamethasone [Decadron] 6 mg tablet 6 mg PO DAILY Qty: 7 RF: 0 Continued citalopram 40 MG tablet 20 mg PO DAILY RF: 0 amlodipine 10 MG tablet 10 mg PO DAILY RF: 0 lisinopril [Zestril] 40 MG tablet 40 mg PO DAILY RF: 0 metoprolol tartrate 50 MG tablet 50 mg PO BID Qty: 60 RF: 1 tamsulosin 0.4 MG capsule 0.4 mg PO DAILY@1730 Qty: 30 RF: 0 metformin 500 mg Tablet 2,000 mg PO DAILY RF: 0 naproxen 500 MG tablet 500 mg PO BID PRN Qty: 20 RF: 0 buspirone 5 mg tablet 5 mg PO BID RF: 0 glimepiride 4 mg tablet 4 mg PO DAILY RF: 0 gabapentin 300 mg capsule 600 mg PO TID RF: 0 hydrochlorothiazide 25 mg tablet 25 mg PO DAILY RF: 0 zolpidem 10 mg tablet 10 mg PO QHS PRN (Reason: Insomnia) RF: 0 bupropion HCl 150 mg tablet extended release 24 hr 150 mg PO DAILY RF: 0 Lantus Solostar U-100 Insulin 100 unit/mL (3 mL) insulin pen 16 unit SUBCUT QHS RF: 0 atorvastatin 20 MG tablet 40 mg PO QHS RF: 0 Referrals / Follow Up: Billy De Santiago MD [Primary Care Provider] - 05/09/21 10:20 am (make sure you wear mask before going into building) Disposition Disposition (needs filled in before D/C Order can be placed): Home, Self Care Charges/Coding Visit Charges Inpatient E&M: 63961 Disch Hosp
[2021-04-27] MEDS: Insulin Lispro 100 UNIT/ML INSULN.PEN SC ×2 (08:29→11:42)
[2021-04-27] MEDS: Insulin Lispro 100 UNIT/ML INSULN.PEN 10 UNIT SC ×2 (08:30→11:43)
[2021-04-27] MEDS: Aspirin 81 MG TAB.CHEW PO (08:31)
[2021-04-27] MEDS: Citalopram 20 MG Tablet PO (08:32)
[2021-04-27] MEDS: busPIRone 5 MG Tablet PO (08:32)
[2021-04-27 08:33] VITALS: BP 146/80; PULSE 61
[2021-04-27] MEDS: Metoprolol Tartrate 50 MG Tablet PO (08:33)
[2021-04-27] MEDS: hydroCHLOROthiazide 25 MG Tablet PO (08:33)
[2021-04-27] MEDS: Famotidine 20 MG Tablet PO (08:34)
[2021-04-27] MEDS: oxyCODONE 5 MG Tablet PO (08:34)
[2021-04-27] MEDS: amLODIPine 10 MG Tablet PO (08:34)
[2021-04-27] MEDS: buPROPion (XL) 150 MG TABLET.XL PO (08:34)
[2021-04-27] MEDS: Lisinopril 40 MG Tablet PO (08:34)
[2021-04-27] MEDS: guaiFENesin 10 ML UDC (200MG/10ML) 20 ML PO (08:35)
[2021-04-27 09:00] VITALS: BP 130/72; PULSE 56; RESP 18; TEMP 35.9; O2SAT 94
[2021-04-27] MEDS: dexAMETHasone 10 MG/ML Vial 6 MG IV (10:00)
[2021-04-27 11:36] LABS: Bedside Glucose 196 mg/dL (70-110)
[2021-04-27] MEDS: Enoxaparin 40 MG/0.4 ML Syringe SC (11:43)
[2021-04-27 12:01] LABS: Bedside Glucose 364 mg/dL (70-110)
--- NOTE | 2021-04-28 15:24 | CASEMGMT ---
RN CM Discharge Follow-Up Phone Call. Lace: 16 Strata: 4 Discharge Date: 04/28/21 Adm Dx: COVID PNA, sepsis, hypoxia Attempted discharge f/u phone call. No answer. Recording w/pt's name identified came on. VM left for return call to RN CM if there are any questions or concerns. Phone number provided. Erick DOUGLAS RN CM
== END 2021-04-27 12:20 | disposition home or self-care (01) | DRG 871 ==
LOC: ED 15:41 → MS3 16:50
PROVIDERS: Internal Medicine Infectious Disease; Admitting Provider Family Medicine; Emergency Provider Emergency Medicine; PCP Family Medicine; Visit Provider Internal Medicine
DX: A41.9 Sepsis, unspecified organism (principal); U07.1 COVID-19; J12.82 Pneumonia due to coronavirus disease 2019; E43 Unspecified severe protein-calorie malnutrition; E78.5 Hyperlipidemia, unspecified; I10 Essential (primary) hypertension; N40.0 Benign prostatic hyperplasia without lower urinary tract symptoms; F41.8 Other specified anxiety disorders; E11.42 Type 2 diabetes mellitus with diabetic polyneuropathy; Z66 Do not resuscitate; Z86.73 Personal history of transient ischemic attack (TIA), and cerebral infarction without residual deficits; Z83.3 Family history of diabetes mellitus; Z90.49 Acquired absence of other specified parts of digestive tract; Z96.659 Presence of unspecified artificial knee joint; Z28.3 Underimmunization status; Z68.30 Body mass index [BMI] 30.0-30.9, adult
CPT/HCPCS: 36415; 71045; 76705; 80048; 80053; 80076; 81001; 82728; 82962; 83615; 83735; 83880; 84145; 84484; 85025; 85379; 86140; 87040; 87449; 87493; 87633; 97110; 97162; 97166; 97530; 97535; 97802; 99251; 99285; J7030; J7050; A4216; G0463; J2405

== ENCOUNTER 2021-05-09 10:38 | Emergency (ER) | payer BC, SELFPAY ==
[2021-05-09 10:39] VITALS: BP 116/89; PULSE 99; RESP 16; TEMP 36.7; O2SAT 96; BMI 28.3
--- NOTE | 2021-05-09 11:18 | EDS_ITS ---
HPI History of Present Illness Chief Complaint: General Illness Informant: patient and spouse/S.O. Narrative Narrative: Patient presents just not improving after Covid. He states he is weak. He still has muscle aches nausea occasional chest tightness and cough. He has some dyspnea. He has some headaches. These are all the same symptoms he has had since he was diagnosed on the second of this month. He had been admitted for 5 days. He states he is just not getting better. He is able to eat and drink although his appetite is down. None of the symptoms are so much new is much as they are not getting better and he feels very weak and tired. [facility] Medical History Benign essential hypertension BPH (benign prostatic hyperplasia) Depression Diabetes Diabetes mellitus type 2 in obese Hyperlipidemia TIA (transient ischemic attack) Home Medications citalopram 20 mg PO DAILY 07/05/16 [History Last Taken 05/08/21] amlodipine 10 mg PO DAILY 12/29/17 [History Last Taken 05/08/21] lisinopril [Zestril] 40 mg PO DAILY 08/08/18 [History Last Taken 05/08/21] metformin 2,000 mg PO DAILY 01/20/21 [History Last Taken 05/08/21] Lantus Solostar U-100 Insulin 22 unit SUBCUT QHS 04/15/21 [History Last Taken 05/08/21] atorvastatin 40 mg PO QHS 04/15/21 [History Last Taken 05/08/21] bupropion HCl 150 mg PO DAILY 04/15/21 [History Last Taken 05/08/21] buspirone 5 mg PO BID 04/15/21 [History Last Taken 05/08/21] gabapentin 600 mg PO TID 04/15/21 [History Last Taken 05/08/21] glimepiride 4 mg PO DAILY 04/15/21 [History Last Taken 05/08/21] zolpidem 10 mg PO QHS PRN 04/15/21 [History Last Taken 05/08/21] apixaban [Eliquis DVT-PE Treat 30D Start] 10 mg PO BID #74 tab 05/09/21 [Rx Last Taken Unknown] Allergy/AdvReac Type Severity Reaction Status Date / Time Iodinated Contrast Media [CT] Allergy Rash Verified 05/09/21 10:41 iohexol [From Omnipaque] Allergy Rash Verified 05/09/21 10:41 Family History Mother Brain aneurysm age 65 with ruptured aneurysm. Father Diabetes Surgical History History of appendectomy History of back surgery History of knee joint replacement History of tonsillectomy Social History household members: spouse Smoking Status: Never smoker alcohol intake: never substance use type: does not use ROS ROS ED Constitutional Constitutional ED: Reports subjective; Denies weight loss Eyes Eyes: Denies blurry vision ENT ENT ED: Denies rhinorrhea or sore throat Cardiovascular Cardiovascular: Reports chest pain; Denies palpitations or racing heartbeat Respiratory/Chest Respiratory/Chest: Reports cough; Denies sputum Gastrointestinal Gastrointestinal: Reports diarrhea and nausea; Denies abdominal pain or vomiting Genitourinary Genitourinary ED: Denies dysuria or hematuria Musculoskeletal Musculoskeletal: Reports myalgias Integumentary Denies rash Neurologic Neurologic: Reports headache(s) and paresthesias; Denies weakness Psychiatric Psychiatric: Reports anxiety and depression Endocrine Endocrinology: Reports polydipsia and polyuria Allergic/Immunologic Allergic/Immunologic ED: Denies urticaria EXAM Physical Exam Const Vital Signs: 05/09/21 10:39 05/09/21 11:41 05/09/21 11:48 Temperature 98.1 F Temperature Source Temporal Pulse Rate 99 80 Respiratory Rate 16 18 Respiratory Effort Normal Non-Labored Respiratory Pattern Normal Normal Blood Pressure 116/89 H Blood Pressure Mean 98 Pulse Ox 96 Oxygen Delivery Method Room Air 05/09/21 13:07 Temperature Temperature Source Pulse Rate 84 Respiratory Rate 16 Respiratory Effort Respiratory Pattern Blood Pressure 143/83 H Blood Pressure Mean 103 Pulse Ox 98 Oxygen Delivery Method Room Air Positive well nourished and well developed Constitutional Narrative: Patient looks like he does not feel well but he does not look acutely ill. He is not toxic appearing. He is not diaphoretic or pale. General Appearance ED: well developed and NAD; Negative for cyanotic or diaphoretic HEENT Reports dry mucous membranes Negative for trauma or tenderness Mouth ED: Yes dry mucous membranes Mouth: dry mucous membranes Eyes EOMs intact bilaterally Neck no lymphadenopathy Chest Wall inspection of chest normal Resp normal respiratory effort and clear to auscultation bilaterally Resp Narrative: No pleuritic pain. His lungs overall do not sound bad. Auscultation: Negative for rales, rhonchi or wheezes Cardio regular rate, regular rhythm and no murmurs GI normal to inspection, nondistended, normoactive bowel sounds and non-tender Palpation: soft Back/Spine no CVA tenderness Extremity normal to inspection General Extremety ED: Negative for edema or tenderness General Extremity: Negative for edema Neuro oriented x3 Sensorium / Orientation: alert Psych mental status grossly normal Psych Narrative: Flat affect. Skin no rashes or lesions noted MDM MDM MDM Narrative Medical decision making narrative: Patient CBC is showing no marked abnormalities. Electrolytes are essentially normal other than elevated glucose. However he has diabetes and his glucose was elevated in the hospital. His urinalysis is normal. Chest x-ray showed improvement. With the patient's continued symptoms and recent Covid, I did do CT angiogram. He was pretreated with Benadryl and Solu-Medrol. He did not have a rash or problem from the CT. CAT scan did show some small left upper lobe pulmonary emboli. However, this does not explain all this patient's symptoms. This patient has symptoms of waxing and waning Covid. He has headaches myalgias nausea decreased appetite decreased energy lethargy. Although he has pulmonary emboli, he is not tachycardic tachypneic or hypoxic. His blood pressure is normal. I do not think the pulmonary emboli in any way explain all of his symptoms. 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 I did discuss the case with hospitalist. The plan will be to get the patient home. I explained that he feels bad but he is going to feel bad at home or in the hospital. There is no a bnormal vitals or labs. Even troponin is. Normal. We can get him started on blood thinner for his pulmonary embolus. He is not suffering any hemodynamic problems from this. His symptoms do not match an acute onset. His symptoms have been present ever since he got Covid and just have not gone away. They wax and wane. I will start Berkley here. I have got him a card for the initial free 30 days. Lab Data Attestation: I reviewed the patient's lab results. Labs: Laboratory Results - last 24 hr 05/09/21 05/09/21 05/09/21 11:39 11:39 11:39 WBC 8.5 RBC 5.42 Hgb 15.1 Hct 46.1 MCV 85.1 MCH 27.9 MCHC 32.8 RDW Std Deviation 40.5 RDW Coeff of Melanie 13.1 Plt Count 310 MPV 9.9 Immature Gran % (Auto) 0.400 Neut % (Auto) 59.8 Lymph % (Auto) 29.3 Screven % (Auto) 7.8 Eos % (Auto) 2.2 Baso % (Auto) 0.5 Absolute Neuts (auto) 5.1 Absolute Lymphs (auto) 2.49 Nucleated RBC % 0 Sodium 132 L Potassium 4.5 Chloride 100 Carbon Dioxide 29.0 Anion Gap 3 L BUN 21 H Creatinine 1.03 Estim Creat Clear Calc 89.78 Est GFR (MDRD) Af Amer 95 Est GFR (MDRD) Non-Af 78 BUN/Creatinine Ratio 20.4 H Glucose 320 H Calcium 8.8 Total Bilirubin 0.70 AST 22 ALT 68 H Alkaline Phosphatase 133 H Troponin I High Sens 12 Total Protein 7.2 Albumin 3.1 L Globulin 4.1 Albumin/Globulin Ratio 0.8 L Urine Color Yellow Urine Clarity Sl. Cloudy Urine pH 5.0 Ur Specific [place] 1.015 Urine Protein 15 H Urine Glucose (UA) 1000 H Urine Ketones 5 H Urine Occult Blood Negative Urine Nitrite Negative Urine Bilirubin Negative Urine Urobilinogen Normal Ur Leukocyte Esterase Negative Urine RBC 0 SEEN Urine WBC 0 SEEN Ur Squamous Epith Cells 0 SEEN Urine Bacteria 0 SEEN Urine Mucus 0 SEEN Radiography Diagnostic Testing: Radiology Impression Chest X-Ray 05/09/21 13:07 IMPRESSION: Mild residual increased markings at the lung bases although there has been improved aeration as compared to prior study. Electronically Signed: Simón Ro MD at 13:26 EDT , Service support , Chest CTA 05/09/21 13:50 IMPRESSION: Small pulmonary emboli in the branches of the left upper lobe pulmonary artery. Patchy ground glass infiltrates in both lungs as described suggestive of Covid pneumonitis. Electronically Signed: Simón Ro MD at 14:25 EDT , Service support , EKG Initial EKG: Comments: EKG done for generalized weakness chest pain and dyspnea. EKG shows sinus rhythm with a rate of 80. Slight inferior ST. No sign of infarct. NM interval, QRS duration and QTc are normal. Discharge Plan Triage Chief Complaint: General Illness ED Provider: Alex Campos Dx/Rx/DC Orders Clinical Impression: Pulmonary embolism, COVID-19 long sandra Instructions: Embolism Pulmonary Dc, Caring for Someone Who Has COVID-19 Prescriptions: New [employer] DVT-PE Treat 30D Start 5 mg (74 tabs) tablets,dose pack 10 mg PO BID Qty: 74 RF: 0 No Action citalopram 40 MG tablet 20 mg PO DAILY RF: 0 amlodipine 10 MG tablet 10 mg PO DAILY RF: 0 lisinopril [Zestril] 40 MG tablet 40 mg PO DAILY RF: 0 metformin 500 mg Tablet 2,000 mg PO DAILY RF: 0 buspirone 5 mg tablet 5 mg PO BID RF: 0 glimepiride 4 mg tablet 4 mg PO DAILY RF: 0 gabapentin 300 mg capsule 600 mg PO TID RF: 0 zolpidem 10 mg tablet 10 mg PO QHS PRN (Reason: Insomnia) RF: 0 bupropion HCl 150 mg tablet extended release 24 hr 150 mg PO DAILY RF: 0 Lantus Solostar U-100 Insulin 100 unit/mL (3 mL) insulin pen 22 unit SUBCUT QHS RF: 0 atorvastatin 20 MG tablet 40 mg PO QHS RF: 0 Primary Care Provider: Billy De Santiago Referrals: Billy De Santiago MD [Primary Care Provider] - 3-5 Days if not improving Disposition Disposition: Home, Self Care
--- NOTE | 2021-05-09 11:20 | EKG12_ITS ---
Test Reason : CP Blood Pressure : / mmHG Vent. Rate : 080 BPM Atrial Rate : 080 BPM P-R Int : 150 ms QRS Dur : 100 ms QT Int : 378 ms P-R-T Axes : 043 007 010 degrees QTc Int : 435 ms Normal sinus rhythm Normal ECG Confirmed by SARA SEHLBY, IVAN ([id number]), scientific publications editor FIDEL BERMAN ([id number]) on 05/12/2021 12:42:52 PM Referred By: PL Confirmed By:IVAN RUIZ MD
[2021-05-09] MEDS: Ondansetron 4 MG/2 ML Vial IV (11:37)
[2021-05-09] MEDS: Morphine 4 MG/ML Syringe IV (11:37)
[2021-05-09] MEDS: 0.9% Normal Saline 1,000 ML 1000 ML IV (11:37)
[2021-05-09] MEDS: Ipratropium/Albuterol Sulfate 3 ML AMPUL.NEB INHALATION (11:39)
[2021-05-09 11:45] LABS: Bacteria 0 SEEN /hpf (None Seen); Mucous, Urine 0 SEEN /hpf (<or=2+); Red Blood Cells-Urine 0 SEEN /hpf (0-5); Squamous Epithelial Cells - UA 0 SEEN /hpf (0-5); White Blood Cells 0 SEEN /hpf (0-5)
[2021-05-09 11:46] LABS: Color, Urine Yellow (Yellow); Glucose, Dipstick 1000 mg/dl (Normal); Ketone-Dipstick 5 mg/dl (Negative); Leukocyte Esterase-Dipstick Negative /ul (Negative); Nitrite-Dipstick Negative (Negative); Occult Blood-Urine Negative /ul (Negative); Protein-Dipstick 15 mg/dl (Negative); Specific Gravity, Urine 1.015 (1.002-1.030); Urine Bilirubin Dipstick Negative (Negative); Urine Clarity Sl. Cloudy (Clear); Urine Urobilinogen Normal (Normal)
[2021-05-09 11:48] VITALS: PULSE 80; RESP 18
[2021-05-09 11:48] LABS: Absolute Lymphocyte Count 2.49 X10^3/uL (0.83-4.51); Absolute Neutrophil Count 5.1 X10^3/uL (2.0-7.7); Basophil# 0.04 X10^3/uL; Basophil% 0.5 % (0-1); Eosinophil# 0.19 X10^3/uL; Eosinophils% 2.2 % (0-5); Hematocrit 46.1 % (40-54); Hemoglobin 15.1 g/dL (13.0-16.5); Lymphocyte # 2.49 X10^3/ul (0.83-4.51); Lymphocyte % 29.3 % (19-41); Mean Corp Hgb Conc 32.8 g/dL (32-36); Mean Corpuscular Hgb 27.9 pg (27.0-32.0); Mean Corpuscular Volume 85.1 fL (80-94); Mean Platelet Vol. 9.9 fl (6.2-12.0); Monocyte# 0.66 X10^3/uL; Monocyte% 7.8 % (0-10); NRBC Flagged by Analyzer 0 % (0-5); Neutrophil # 5.08 X10^3/uL (2.7-7.7); Neutrophil % 59.8 % (47-70); Platelet Count 310 K/mm3 (150-450); RBC Distribution Width CV 13.1 % (11.6-14.6); RBC Distribution Width SD 40.5 fl (35.1-43.9); Red Blood Count 5.42 M/mm3 (4.6-6.2); White Blood Count 8.5 K/mm3 (4.4-11.0)
[2021-05-09 12:06] LABS: ALB/GLOB Ratio 0.8 RATIO (0.9-2.4); AST(SGOT) 22 U/L (15-37); Alanine Aminotransfer ALT/SGPT 68 U/L (16-61); Albumin, Serum 3.1 g/dL (3.2-5.0); Alkaline Phosphatase 133 U/L (45-117); Anion Gap 3 (5-15); BUN 21 mg/dL (7-18); BUN/Creat Ratio 20.4 RATIO (10-20); Calcium,Total 8.8 mg/dL (8.5-10.1); Chloride 100 mmol/L (98-107); Creatinine, Serum 1.03 mg/dL (0.70-1.30); EST Glomerular Filtration Rate 78 mL/min (>60); Est Glom Filt Rate - Afr Amer 95 mL/min (>60); Estimated Creatinine Clearance 89.78 ml/min; Globulin 4.1 g/dL (2.2-4.2); Glucose 320 mg/dL (74-106); Potassium 4.5 mmol/L (3.5-5.1); Protein, Total 7.2 g/dL (6.4-8.2); Sodium Level 132 mmol/L (136-145); Troponin-I HS 12 pg/mL (3.0-78.0)
[2021-05-09] MEDS: DiphenhydrAMINE 50 MG/ML Syringe 25 MG IV (12:19)
[2021-05-09] MEDS: MethylPREDNISolone 125 MG/2 ML Vial IV (12:19)
[2021-05-09] MEDS: Insulin Lispro 100 UNIT/ML INSULN.PEN 10 UNIT SC (13:05)
[2021-05-09 13:07] VITALS: BP 143/83; PULSE 84; RESP 16; O2SAT 98
--- NOTE | 2021-05-09 13:07 | RAD_ITS ---
STUDY: X-RAY CHEST REASON FOR EXAM: Male, 60 years old. Cough. History of prior Covid. TECHNIQUE: Single AP portable view of the chest. COMPARISON: Comparison is made with prior examination dated 04/21/2021. FINDINGS: Stable elevation of the right hemidiaphragm. Mild residual increased markings at the lung bases although there has been improved aeration as compared to prior study. There is no demonstrated pleural abnormality. Normal size heart. Normal mediastinum and dain. Normal visualized pulmonary arteries. Normal visualized aortic arch and descending thoracic aorta. There are diffuse degenerative changes of the visualized thoracic spine. There is evidence of prior fusion of the lower cervical spine. There is no demonstrated abnormality of the visualized soft tissue structures of the upper abdomen. RAD/Chest 1 View (Portable) IMPRESSION: Mild residual increased markings at the lung bases although there has been improved aeration as compared to prior study. Electronically Signed: Simón Ro MD at 13:26 EDT , Service support ,
--- NOTE | 2021-05-09 13:50 | CT_ITS ---
STUDY: CTA CHEST REASON FOR EXAM: Male, 60 years old. Pulmonary embolus. Chest pain. Recent Covid. RADIATION DOSAGE (If Supplied By Facility): CTDIvol = ( 12.32 ) mGy, DLP = ( 542.28 ) mGycm TECHNIQUE: The examination was performed with the intravenous administration of IV 100mL Isovue-370. Post-processing of the angiographic images was performed, with multiplanar reformation and 3D reconstruction. Individualized dose optimization techniques were used for this CT. COMPARISON: Comparison is made with prior examination dated 01/20/2021. FINDINGS: There are small nonocclusive intraluminal filling defects in branches of the left upper lobe pulmonary infiltrate with pulmonary emboli. Normal thoracic aorta and visualized great vessels. There is no demonstrated aortic dissection. Normal heart and pericardium. Normal mediastinum. Normal hilar regions. Normal visualized trachea and bronchi. The lungs are well expanded. Focal patchy areas of the groundglass appearance in both upper and lower lobes in the preferential peripheral localization suggestive of Covid pneumonitis. Normal pleura. Normal chest wall structures. There are degenerative changes of thoracic spine. Small hiatal hernia. CT/CTA Chest W/WO Contrast IMPRESSION: Small pulmonary emboli in the branches of the left upper lobe pulmonary artery. Patchy ground glass infiltrates in both lungs as described suggestive of Covid pneumonitis. Electronically Signed: Simón Ro MD at 14:25 EDT , Service support ,
[2021-05-09 15:43] VITALS: BP 148/72; PULSE 69; RESP 17; O2SAT 95
[2021-05-09] MEDS: APIXABAN 5 MG TABLET 10 MG PO (15:43)
== END 2021-05-09 15:44 | disposition home or self-care (01) ==
PROVIDERS: Emergency Provider Emergency Medicine; PCP Family Medicine
DX: I26.99 Other pulmonary embolism without acute cor pulmonale (principal); U07.1 COVID-19; I10 Essential (primary) hypertension; N40.0 Benign prostatic hyperplasia without lower urinary tract symptoms; E78.5 Hyperlipidemia, unspecified; E11.9 Type 2 diabetes mellitus without complications; F32.9 Major depressive disorder, single episode, unspecified; Z86.73 Personal history of transient ischemic attack (TIA), and cerebral infarction without residual deficits; Z79.01 Long term (current) use of anticoagulants; Z79.4 Long term (current) use of insulin
CPT/HCPCS: 71045; 71275; 80053; 81001; 84484; 85025; 93005; 94640; 96361; 96374; 96375; 99284; J7030; Q9967; A4216; J2405

== ENCOUNTER 2021-09-04 15:53 | Inpatient (IN) | payer BC, SELFPAY ==
[2021-09-04] VITALS (8 sets, daily range): BP systolic 153–221; BP diastolic 77–157; PULSE 84–110; RESP 17–23; TEMP 36.9; O2SAT 92–99; BMI 30.9
--- NOTE | 2021-09-04 16:29 | CT_ITS ---
STUDY: CT CERVICAL SPINE WITHOUT CONTRAST REASON FOR EXAM: Male, 61 years old. fall/injury, neck pain RADIATION DOSAGE (If Supplied By Facility): CTDIvol = ( 24.99 ) mGy, DLP = ( 672.72 ) mGycm TECHNIQUE: High resolution transaxial imaging was performed without contrast material. Sagittal and coronal images were reconstructed. Individualized dose optimization techniques were used for this CT. COMPARISON: 08/16/2013 report only FINDINGS: Normal craniovertebral junction. Normal anterior atlantoaxial articulation. Normal odontoid process. Normal cervical lordosis. Normal vertebral bodies and posterior osseous elements. C2-3: Normal endplates. Normal disc height and morphology. Normal central canal and intervertebral neuroforamina. C3-4: Narrowed disc space and endplate spurring. Narrowed central canal and mild cord compression. Severe bilateral neuroforaminal stenosis secondary to bony hypertrophy. C4-5: Normal endplates. Normal disc height and morphology. Normal central canal. Mild left neuroforaminal encroachment secondary to bony hypertrophy. C5-6: Postop change status post anterior fusion.. Normal central canal and intervertebral neuroforamina. C6-7: Postop change status post anterior fusion.. Normal central canal and intervertebral neuroforamina. C7-T1: Normal endplates. Normal disc height and morphology. Normal central canal and intervertebral neuroforamina. Normal visualized soft tissue structures. CT/Spine Cervical without Contras IMPRESSION: No evidence for acute fracture or subluxation.. Postop change at C5-6 and C6-7 Mild spondylosis most severe at C3-4. Electronically Signed: Rashaad Sellers MD at 16:58 EST , Service support ,
--- NOTE | 2021-09-04 16:29 | CT_ITS ---
STUDY: CT BRAIN WITHOUT CONTRAST REASON FOR EXAM: Male, 61 years old. trauma/fall RADIATION DOSAGE (If Supplied By Facility): CTDIvol = ( 44.99 ) mGy, DLP = ( 846.73 ) mGycm TECHNIQUE: Transaxial CT imaging of the brain was performed without administration of intravenous contrast material. Individualized dose optimization techniques were used for this CT. COMPARISON: 04/09/2019 FINDINGS: Normal soft tissue structures. Normal calvarium. Mild calcification of cavernous carotid Normal size ventricles and extra-axial spaces for the patient''s age. Normal white matter tracts of the cerebral hemispheres. Old lacunar infarct in left basal ganglia. Normal brainstem. Normal cerebellum. There is no intracranial hemorrhage. There are no findings of an acute ischemic infarction. Small polyp in left maxillary sinus No significant change since prior study CT/Brain/Head without Contrast IMPRESSION: Old left lacunar infarct. No evidence for acute intracranial bleed Electronically Signed: Rashaad Sellers MD at 16:55 EST , Service support ,
--- NOTE | 2021-09-04 16:30 | EX.ED.GENINJ ---
HPI History of Present Illness Chief Complaint: Head Injury Informant: patient and EMS Onset/Context/Timing Onset: Today Mechanism/Context: Blunt Injury and Fall Location: head/neck Current Severity: Moderate Maximum Severity: Moderate Worsened by: nothing Relieved by: nothing Associated Symptoms Associated Symptoms: Positive for Amnesia (partially w/r/t certain details) Narrative Narrative: Patient had Covid in April and has long-haul Covid symptoms, he was in physical therapy today, he is on Eliquis because of pulmonary embolism, while there, he states he fell off of a physical therapy weight machine, hitting his head on the metal frame of a weight machine. He was days, does not get lost consciousness. He has been confused since then with elevated blood pressure, he complains of a headache and upper neck pain as well. Denies any other injuries. Later, the came and I discussed further with her. She states that when he left for physical therapy this morning, he was at baseline and not confused, and apparently he hit his head there and then went to his doctor's appointment afterwards before he came home, and he was disoriented there and was sent here to the emergency department from his PCPs office, which I was unaware of prior to that. [facility] Medical History Anxiety and depression Benign essential hypertension BPH (benign prostatic hyperplasia) COVID-19 long hauler Diabetes Diabetes mellitus type 2 in obese Grade II diastolic dysfunction Hyperlipidemia Iron deficiency anemia Pulmonary embolism TIA (transient ischemic attack) Medical History unable to obtain Home Medications citalopram 20 mg PO DAILY 07/05/16 [History Last Taken 05/08/21] amlodipine 10 mg PO DAILY 12/29/17 [History Last Taken 05/08/21] metformin 2,000 mg PO DAILY 01/20/21 [History Last Taken 05/08/21] Lantus Solostar U-100 Insulin 25 unit SUBCUT QHS 04/15/21 [History Last Taken 05/08/21] atorvastatin 40 mg PO QHS 04/15/21 [History Last Taken 05/08/21] bupropion HCl 150 mg PO DAILY 04/15/21 [History Last Taken 05/08/21] buspirone 5 mg PO QHS 04/15/21 [History Last Taken 05/08/21] zolpidem 10 mg PO QHS PRN 04/15/21 [History Last Taken 05/08/21] aspirin 1 tab PO DAILY 09/05/21 [History Last Taken Unknown] duloxetine 30 mg PO DAILY 09/05/21 [History Last Taken Unknown] hydrochlorothiazide 25 mg PO DAILY 09/05/21 [History Last Taken Unknown] insulin lispro [Humalog KwikPen Insulin] 8 unit SUBCUT TIDCM 09/05/21 [History Last Taken Unknown] metoprolol tartrate 50 mg PO BID 09/05/21 [History Last Taken Unknown] rivaroxaban [Xarelto] 20 mg PO DINNER 09/05/21 [History Last Taken Unknown] tamsulosin 0.4 mg PO QHS 09/05/21 [History Last Taken Unknown] Allergy/AdvReac Type Severity Reaction Status Date / Time Iodinated Contrast Media [CT] Allergy Rash Verified 05/09/21 10:41 iohexol [From Omnipaque] Allergy Rash Verified 05/09/21 10:41 Family History Mother Brain aneurysm age 65 with ruptured aneurysm. Father Diabetes Surgical History History of appendectomy History of back surgery History of knee joint replacement History of tonsillectomy Surgical History unable to obtain Social History household members: spouse Smoking Status: Never smoker alcohol intake: never substance use type: does not use ROS ROS ED Review of Systems ROS Unobtainable: due to mental status Constitutional Constitutional ED: Reports fatigue Cardiovascular Cardiovascular: Denies chest pain or palpitations Respiratory/Chest Respiratory/Chest: Denies dyspnea or dyspnea on exertion Gastrointestinal Gastrointestinal: Reports nausea; Denies abdominal pain or vomiting Musculoskeletal Musculoskeletal: Reports neck pain; Denies back pain Neurologic Neurologic: Reports headache(s); Denies paresthesias or weakness EXAM Physical Exam Const Vital Signs: 09/04/21 15:54 09/04/21 16:18 09/04/21 17:03 Temperature 98.5 F Temperature Source Oral Pulse Rate 110 H 95 Respiratory Rate 18 23 H Respiratory Effort Normal Non-Labored Blood Pressure 221/112 H 169/108 H Blood Pressure Mean 148 128 Pulse Ox 99 96 Oxygen Delivery Method Room Air Room Air Room Air 09/04/21 18:35 09/04/21 19:54 09/04/21 20:26 Temperature Temperature Source Pulse Rate 100 90 88 Respiratory Rate 20 H 17 20 H Respiratory Effort Blood Pressure 153/77 H 161/113 H 185/101 H Blood Pressure Mean 102 129 129 Pulse Ox 92 94 96 Oxygen Delivery Method Room Air Room Air Room Air 09/04/21 21:09 09/04/21 22:22 09/04/21 23:08 Temperature Temperature Source Pulse Rate 86 84 89 Respiratory Rate 17 20 H 19 H Respiratory Effort Blood Pressure 221/157 H 197/108 H 182/112 H Blood Pressure Mean 178 137 135 Pulse Ox 95 92 94 Oxygen Delivery Method Room Air Room Air Room Air Positive well nourished and well developed General Appearance ED: well developed and NAD HEENT Reports TM's clear and nasal mucous membranes and turbinates normal HEENT Narrative: No tenderness posterior scalp, no crepitance or depression or obvious signs of trauma atraumatic Face and Sinus: Negative for facial tenderness Tympanic Membrane ED: Yes TM's clear Eyes PERRL and EOMs intact bilaterally Visual Acuity: other Other Details: no entrapment or pain with extraocular movements Neck Neck Narrative: C-collar stabilization maintained. Mild tenderness upper mid C-spine, no step-off or obvious signs of trauma. General: tenderness Chest Wall inspection of chest normal and palpation of chest normal Chest: symmetrical chest wall rise; Negative for crepitus or tenderness Resp normal respiratory effort and clear to auscultation bilaterally Percussion: other equal BS bilat Cardio no murmurs Rate: regular rate Rhythm: regular rhythm GI normal to inspection, nondistended, normoactive bowel sounds, soft to palpation and non-tender Back/Spine normal ROM Cervical Spine: Negative for cervical spine tenderness Thoracic Spine / Upper Back: Negative for thoracic spinal tenderness Lumbar Spine / Lower Back: Negative for lumbar spinal tenderness Extremity normal to inspection and full ROM General Extremety ED: Negative for tenderness Neuro oriented x3, CN's II-XII intact bilaterally, moves all extremities and no sensory deficits noted Surprise Coma Scale: document GCS findings To Voice Obeys Commands Confused 13 Sensorium / Orientation: awake, alert, oriented to person and oriented to place; Negative for oriented to time Motor Exam: strength abnormal other (Generalized symmetric weakness with 4+/5 muscle strength) Right Pupil Size (mm): 3 Left Pupil Size (mm): 3 Psych mental status grossly normal and thought process normal Skin no wounds Lesions: no lesions Rashes: no rashes MDM MDM MDM Narrative Medical decision making narrative: Patient was sent for CT of the head and cervical spine, both of those scans as below were negative for any acute. Cervical spine was cleared, he is a little disoriented but he is wide awake, GCS 14. He feels better without the collar on. He is able to move his head around a little but he is having difficulty following commands. He is remaining still in bed. He has occasional tremor/jerking of one of his arms, sometimes the other one, does not appear to be seizure activity more like brief intermittent myoclonus. Discussed this with the , she states he had this after his booster shot, then went away and now he is having it again. His labs look good except for hyperglycemia at 357, we also sent a urinalysis, that returned negative for infection, just glycosuria. We treated his hyperglycemia with a dose of insulin and some IV fluids. We were observing him for a while however awaiting urine sample, and he became more disoriented instead of better. He had more tremor in his right upper extremity which would stop periodically and was not rhythmic like seizure activity; he was having tremors and still able to do purposeful movements during that. However he had lapses in consciousness without changes in vital signs, intermittently unable to follow commands. Blood pressure still elevated but not as bad as before after we treated it. Therefore I sent him for CT angiography of the head and neck to ensure we were not missing an LVO from an unusual stroke presentation. There were delays for this as well because he has an nonlife-threatening allergic reaction to iodinated contrast media, so needed to be pretreated with Solu-Medrol. While waiting for results, patient spiked his blood pressure again to the 220 range, on several different measurements 10 minutes apart, so again he was treated with labetalol this time [address] angiography returned negative. Patient's blood pressure is now down to the 160-180 range, and now he is complaining of a headache. Discussed with hospitalist for admission for further work-up, they request [facility] neurology consult. That is requested, and pending. Checked out to oncoming night physician at shift change for final disposition. Neurology was consulted and agreed with admission, MRI, further monitoring for mental status change of unknown etiology. Lab Data Attestation: I reviewed the patient's lab results. Labs: Laboratory Results - last 24 hr 09/04/21 09/04/21 09/04/21 14:00 14:00 14:00 WBC 7.4 RBC 6.07 Hgb 17.1 H Hct 51.1 MCV 84.2 MCH 28.2 MCHC 33.5 RDW Std Deviation 38.2 RDW Coeff of Melanie 12.4 Plt Count 284 MPV 10.0 Immature Gran % (Auto) 0.100 Neut % (Auto) 58.9 Lymph % (Auto) 32.8 [place] % (Auto) 6.8 Eos % (Auto) 1.1 Baso % (Auto) 0.3 Absolute Neuts (auto) 4.3 Absolute Lymphs (auto) 2.41 Nucleated RBC % 0 Sodium 136 Potassium 4.1 Chloride 100 Carbon Dioxide 26.0 Anion Gap 10 BUN 16 Creatinine 1.13 Estim Creat Clear Calc 85.35 Est GFR (MDRD) Af Amer 85 Est GFR (MDRD) Non-Af 70 BUN/Creatinine Ratio 14.2 Glucose 357 H Calcium 8.8 Troponin I High Sens 12 Urine Color Urine Clarity Urine pH Ur Specific [place] Urine Protein Urine Glucose (UA) Urine Ketones Urine Occult Blood Urine Nitrite Urine Bilirubin Urine Urobilinogen Ur Leukocyte Esterase Urine RBC Urine WBC Ur Squamous Epith Cells Urine Bacteria Urine Mucus POC Glucose 09/04/21 09/04/21 19:25 21:42 WBC RBC Hgb Hct MCV MCH MCHC RDW Std Deviation RDW Coeff of Melanie Plt Count MPV Immature Gran % (Auto) Neut % (Auto) Lymph % (Auto) [place] % (Auto) Eos % (Auto) Baso % (Auto) Absolute Neuts (auto) Absolute Lymphs (auto) Nucleated RBC % Sodium Potassium Chloride Carbon Dioxide Anion Gap BUN Creatinine Estim Creat Clear Calc Est GFR (MDRD) Af Amer Est GFR (MDRD) Non-Af BUN/Creatinine Ratio Glucose Calcium Troponin I High Sens Urine Color Yellow Urine Clarity Clear Urine pH 5.0 Ur Specific [place] 1.025 Urine Protein 30 H Urine Glucose (UA) 1000 H Urine Ketones 5 H Urine Occult Blood Negative Urine Nitrite Negative Urine Bilirubin Negative Urine Urobilinogen Normal Ur Leukocyte Esterase Negative Urine RBC 0 SEEN Urine WBC 0 SEEN Ur Squamous Epith Cells 0-5 SEEN Urine Bacteria 0 SEEN Urine Mucus 0 SEEN POC Glucose 141 H Radiography Diagnostic Testing: Clinical Impression(s) from Imaging Studies Brain CT 09/04/21 16:29 IMPRESSION: Old left lacunar infarct. No evidence for acute intracranial bleed Electronically Signed: Rashaad Sellers MD at 16:55 EST , Service support , Cervical Spine CT 09/04/21 16:29 IMPRESSION: No evidence for acute fracture or subluxation.. Postop change at C5-6 and C6-7 Mild spondylosis most severe at C3-4. Electronically Signed: Rashaad Sellers MD at 16:58 EST , Service support , Head/Neck CTA 09/04/21 19:58 IMPRESSION: Normal CTA Head and neck with contrast. Electronically Signed: Rashaad Sellers MD at 22:51 EST , Service support , EKG Initial EKG: Attestation: I personally reviewed and interpreted this EKG as follows: Interpretation: Sinus Rhythm and No Acute Injury Pattern Comments: normal EKG Discharge Plan Dx/Rx/DC Orders Clinical Impression: Acute encephalopathy, Hypertensive urgency, Intermittent tremor Disposition Disposition: Acute Care Hospital [facility] Discharge Date/Time: 09/05/21 00:49
[2021-09-04] MEDS: Labetalol (Prefilled) 20 MG/4 ML 10 MG IV (16:42)
[2021-09-04] MEDS: Acetaminophen 500 MG Tablet 1000 MG PO (17:02)
[2021-09-04] MEDS: Ondansetron 4 MG/2 ML Vial IV (17:02)
[2021-09-04 17:05] LABS: Absolute Lymphocyte Count 2.41 X10^3/uL (0.83-4.51); Absolute Neutrophil Count 4.3 X10^3/uL (2.0-7.7); Basophil# 0.02 X10^3/uL; Basophil% 0.3 % (0-1); Eosinophil# 0.08 X10^3/uL; Eosinophils% 1.1 % (0-5); Hematocrit 51.1 % (40-54); Hemoglobin 17.1 g/dL (13.0-16.5); Lymphocyte # 2.41 X10^3/ul (0.83-4.51); Lymphocyte % 32.8 % (19-41); Mean Corp Hgb Conc 33.5 g/dL (32-36); Mean Corpuscular Hgb 28.2 pg (27.0-32.0); Mean Corpuscular Volume 84.2 fL (80-94); Monocyte% 6.8 % (0-10); NRBC Flagged by Analyzer 0 % (0-5); Neutrophil # 4.33 X10^3/uL (2.7-7.7); Neutrophil % 58.9 % (47-70); Platelet Count 284 K/mm3 (150-450); RBC Distribution Width CV 12.4 % (11.6-14.6); RBC Distribution Width SD 38.2 fl (35.1-43.9); Red Blood Count 6.07 M/mm3 (4.6-6.2); White Blood Count 7.4 K/mm3 (4.4-11.0)
[2021-09-04 17:17] LABS: Anion Gap 10 (5-15); BUN 16 mg/dL (7-18); BUN/Creat Ratio 14.2 RATIO (10-20); Calcium,Total 8.8 mg/dL (8.5-10.1); Chloride 100 mmol/L (98-107); Creatinine, Serum 1.13 mg/dL (0.70-1.30); EST Glomerular Filtration Rate 70 mL/min (>60); Est Glom Filt Rate - Afr Amer 85 mL/min (>60); Estimated Creatinine Clearance 85.35 ml/min; Glucose 357 mg/dL (74-106); Potassium 4.1 mmol/L (3.5-5.1); Sodium Level 136 mmol/L (136-145)
--- NOTE | 2021-09-04 17:42 | ED.RN ---
THIS NURSE SPOKE WITH THE BASIC COMBATANT SWIMMER. WHEN THE PT FELL, HE HAD BOTH HANDS ON THE BAR AND SAT DOWN MISSING THE BENCH. AT THAT TIME, PT DENIED HITTING HIS HEAD. PT WAS C/O A HEADACHE BUT PER THERAPY STAFF PT HAS A HEADACHE EVERY TIME HE GOES TO THERAPY. WHEN PT LEFT HE WAS ALERT AND ORIENTED AND NORMAL MENTATION
[2021-09-04 19:33] LABS: Bacteria 0 SEEN /hpf (None Seen); Mucous, Urine 0 SEEN /hpf (<or=2+); Red Blood Cells-Urine 0 SEEN /hpf (0-5); White Blood Cells 0 SEEN /hpf (0-5)
[2021-09-04 19:45] LABS: Color, Urine Yellow (Yellow); Glucose, Dipstick 1000 mg/dl (Normal); Ketone-Dipstick 5 mg/dl (Negative); Leukocyte Esterase-Dipstick Negative /ul (Negative); Nitrite-Dipstick Negative (Negative); Occult Blood-Urine Negative /ul (Negative); Protein-Dipstick 30 mg/dl (Negative); Specific Gravity, Urine 1.025 (1.002-1.030); Urine Bilirubin Dipstick Negative (Negative); Urine Clarity Clear (Clear); Urine Urobilinogen Normal (Normal)
[2021-09-04] MEDS: Insulin Lispro 100 UNIT/ML INSULN.PEN 14 UNIT SC (19:57)
--- NOTE | 2021-09-04 19:58 | CT_ITS ---
STUDY: CTA HEAD AND NECK WITH CONTRAST REASON FOR EXAM: Male, 61 years old. fall, injury, off balance, mental status change RADIATION DOSAGE (If Supplied By Facility): CTDIvol = ( 29.8 ) mGy, DLP = ( 1569.25 ) mGycm TECHNIQUE: CT angiography was performed with a multi-detector CT scanner. Data acquisition was obtained from the skull base through the vertex following intravenous administration of IV 100mL [id number]-[id number]. MIP images were reconstructed from the axial data set. Post-processing of the angiographic images was performed, with multiplanar reformation and 3D reconstruction. Individualized dose optimization techniques were used for this CT. COMPARISON: No relevant priors. FINDINGS: Normal bilateral petrous carotid arteries. Normal right cavernous carotid artery with a normal supraclinoid bifurcation. Minor calcific plaquing of the left cavernous carotid artery with a normal supraclinoid bifurcation. Normal right A1 segments of the anterior cerebral artery. Normal left A1 segments of the anterior cerebral artery. Normal intact anterior communicating artery (ACOM). Normal bilateral A2 segments of the anterior cerebral arteries. Normal right M1 and M2 segments of the middle cerebral arteries, with a normal M1 bifurcation. Normal left M1 and M2 segments of the middle cerebral arteries, with a normal M1 bifurcation. Bilateral posterior communicating arteries are normal caliber. Normal bilateral vertebral arteries. Normal basilar artery with a normal basilar bifurcation. The visualized bilateral superior cerebellar (SCA) arteries are normal. Normal bilateral P1, P2 and visualized P3 segments of the posterior cerebral arteries. There is no demonstrated aneurysm of the kake of [place]. There is no demonstrated abnormality of the visualized brain. AORTIC ARCH: Normal visualized aortic arch. Normal origins of the brachiocephalic, left common carotid, and left subclavian arteries. RIGHT CAROTID ARTERIES: Normal right common carotid artery (CCA). Minor calcific plaquing of the right common carotid bulb. Minor calcific plaquing of the origin of the right internal carotid (ICA) artery without a hemodynamically significant stenosis. Normal visualized cervical portion of the right internal carotid artery. Normal origin of the right external carotid artery (ECA). LEFT CAROTID ARTERIES: Normal left common carotid artery (CCA). Normal left common carotid bulb. Normal origin of the left internal carotid (ICA) artery without a hemodynamically significant stenosis. Normal visualized cervical portion of the left internal carotid artery. Normal origin of the left external carotid artery (ECA). VERTEBRAL ARTERIES: Normal bilateral vertebral arteries. CT/CTA Head AND Neck W/ Contrast IMPRESSION: Normal CTA Head and neck with contrast. Electronically Signed: Rashaad Sellers MD at 22:51 EST , Service support ,
[2021-09-04 20:03] LABS: Squamous Epithelial Cells - UA 0-5 SEEN /hpf (0-5)
[2021-09-04] MEDS: MethylPREDNISolone 125 MG/2 ML Vial IV (20:23)
--- NOTE | 2021-09-04 20:59 | EKG12_ITS ---
Test Reason : DYSRHYTHMIA Blood Pressure : / mmHG Vent. Rate : 083 BPM Atrial Rate : 083 BPM P-R Int : 158 ms QRS Dur : 112 ms QT Int : 380 ms P-R-T Axes : 059 018 026 degrees QTc Int : 446 ms Normal sinus rhythm Normal ECG Confirmed by SARA SHELBY, IVAN ([id number]), science editor FIDEL BERMAN ([id number]) on 09/09/2021 9:33:29 AM Referred By: BB Confirmed By:IVAN RUIZ MD
[2021-09-04 21:23] LABS: Troponin-I HS 12 pg/mL (3.0-78.0)
[2021-09-04 21:46] LABS: Bedside Glucose 141 mg/dL (70-110)
[2021-09-04] MEDS: Labetalol (Prefilled) 20 MG/4 ML IV (22:19)
--- NOTE | 2021-09-04 23:12 | TELEMED_ITS ---
[facility] has confirmed receipt of a request for visit. This document confirms receipt of the order initiating the consult. To find the results of the consultation, please view the patient's reports for the scanned Telemed Consult.
[2021-09-05] VITALS (17 sets, daily range): BP systolic 141–199; BP diastolic 91–122; PULSE 91–105; RESP 16–18; TEMP 36.1–37.1; O2SAT 93–98; BMI 32.5
--- NOTE | 2021-09-05 00:16 | HP.PCM.HOS_ITS ---
HPI - General General Date of Admission: 09/05/21 Chief Complaint: FALL HPI Narrative ASHWINI HAYES, is a 61 M who presents to the emergency department with a fall. Patient was admitted for COVID-19 infection around April 2021 at outside hospital hospital. Reportedly he developed PE and blood clots in his left arm from the Covid. While being admitted for Covid he received one shot of Pfizer COVID-19 infection and then he blacked out. He also developed poor balance and tremors/twitches and had rehabilitation at [facility] ([facility]). After his hospitalization at [facility] he continues to have physical therapy. On the day of presentation patient was working out with physical therapy. He lost his balance and fell. Reportedly he landed on his neck and on his head; and on his back. He reports pain in his head especially around his right eye. His reported that he had a bump. Patient remembers parts of the events of the fall but not the entire picture. After a fall patient followed up with a routine PCP appointment for continues eligibility for disability. It was realized that he was more confused and was sent to emergency department. Of note reports that with his Covid blister symptoms he has had poor cognition. Reportedly his poor cognition was worse on this presentation. Emergent department doctor reported that during the course of examination patient cognition became worse. Patient was noted to have severely elevated blood pressure and was given labetalol. [facility] Medical History Anxiety and depression Benign essential hypertension BPH (benign prostatic hyperplasia) COVID-19 long hauler Diabetes Diabetes mellitus type 2 in obese Grade II diastolic dysfunction Hyperlipidemia Iron deficiency anemia Pulmonary embolism TIA (transient ischemic attack) Medical History unable to obtain Home Medications citalopram 20 mg PO DAILY 07/05/16 [History Last Taken 05/08/21] amlodipine 10 mg PO DAILY 12/29/17 [History Last Taken 05/08/21] lisinopril [Zestril] 40 mg PO DAILY 08/08/18 [History Last Taken 05/08/21] metformin 2,000 mg PO DAILY 01/20/21 [History Last Taken 05/08/21] Lantus Solostar U-100 Insulin 22 unit SUBCUT QHS 04/15/21 [History Last Taken 05/08/21] atorvastatin 40 mg PO QHS 04/15/21 [History Last Taken 05/08/21] bupropion HCl 150 mg PO DAILY 04/15/21 [History Last Taken 05/08/21] buspirone 5 mg PO BID 04/15/21 [History Last Taken 05/08/21] gabapentin 600 mg PO TID 04/15/21 [History Last Taken 05/08/21] glimepiride 4 mg PO DAILY 04/15/21 [History Last Taken 05/08/21] zolpidem 10 mg PO QHS PRN 04/15/21 [History Last Taken 05/08/21] apixaban [Eliquis DVT-PE Treat 30D Start] 10 mg PO BID #74 tab 05/09/21 [Rx Last Taken Unknown] Allergy/AdvReac Type Severity Reaction Status Date / Time Iodinated Contrast Media [CT] Allergy Rash Verified 05/09/21 10:41 iohexol [From Omnipaque] Allergy Rash Verified 05/09/21 10:41 Family History Mother Brain aneurysm age 65 with ruptured aneurysm. Father Diabetes Surgical History History of appendectomy History of back surgery History of knee joint replacement History of tonsillectomy Surgical History unable to obtain Social History household members: spouse Smoking Status: Never smoker alcohol intake: never substance use type: does not use ROS ROS Narrative Constitutional: Denies fever, chills, fatigue, anorexia and change in weight Eyes: Denies blurry vision, change in eye color, change in vision, discharge from eye(s), double vision, erythema, eye pain, loss of vision or other HEENT: Denies abnormal hearing, dysphagia, ear pain, epistaxis, hearing loss, nasal congestion, nasal discharge, post nasal drip, sinus pressure, sore throat or other Cardiovascular: Denies chest pain or palpitations. Denies dyspnea on exertion, orthopnea and paroxysmal nocturnal dyspnea Respiratory/Chest: Denies cough, excessive phlegm production, shortness of breath with exertion and wheezing Gastrointestinal: Denies abdominal pain, coffee ground emesis, constipation, diarrhea, dyspepsia, hematemesis, hematochezia, loose stools, melena, nausea, vomiting or other Genitourinary: Denies burning urination, difficulty urinating, dysuria, hematuria, nocturia, urinary frequency, urinary hesitancy, urinary incontinence, urinary urgency or other Musculoskeletal: Reports left flank pain. Denies joint stiffness, joint swelling, or other. Neurologic: Reports abnormal gait and confusion. Reports tremors. Reports headache. Denies focal weakness, seizure-like activity, seizures, tingling, tremor(s) or other Psychiatric: Denies anxiety, depression, homicidal ideation, suicidal ideation or other Endocrinology: Denies change in body appearance, cold intolerance, excessive sweating, heat intolerance, polydipsia, polyuria or other Hematologic/Lymphatic: Denies anemia, easy bleeding, easy bruising, lymphadenopathy or other Integumentary: Denies rashes Allergic/Immunologic: Denies rhinitis, hives, eczema, asthma or other Vital Signs Vital Signs Vital Signs: 09/04/21 15:54 09/04/21 16:18 09/04/21 17:03 Temperature 98.5 F Temperature Source Oral Pulse Rate 110 H 95 Respiratory Rate 18 23 H Respiratory Effort Normal Non-Labored Blood Pressure 221/112 H 169/108 H Blood Pressure Mean 148 128 Pulse Ox 99 96 Oxygen Delivery Method Room Air Room Air Room Air 09/04/21 18:35 09/04/21 19:54 09/04/21 20:26 Temperature Temperature Source Pulse Rate 100 90 88 Respiratory Rate 20 H 17 20 H Respiratory Effort Blood Pressure 153/77 H 161/113 H 185/101 H Blood Pressure Mean 102 129 129 Pulse Ox 92 94 96 Oxygen Delivery Method Room Air Room Air Room Air 09/04/21 21:09 09/04/21 22:22 09/04/21 23:08 Temperature Temperature Source Pulse Rate 86 84 89 Respiratory Rate 17 20 H 19 H Respiratory Effort Blood Pressure 221/157 H 197/108 H 182/112 H Blood Pressure Mean 178 137 135 Pulse Ox 95 92 94 Oxygen Delivery Method Room Air Room Air Room Air Weight Weight: 115.2 kg Body Mass Index (BMI) 30.9 Physical Exam Narrative Physical exam: General: Well-nourished, well-developed. Head: Normocephalic, atraumatic, no tenderness Eyes: PERRLA, EOMI ENT, no trauma, moist mucous membranes, no rhinorrhea Neck: Nontender, full range of motion, no spinal tenderness, deformities, step- off CVS: Regular rate and rhythm. S1-S2 present. No murmur, gallop or rub. Respiratory : clear to auscultation bilaterally, chest wall nontender, no wheezing Abdomen: Soft, tender right side of abdomen. Nondistended, normal bowel sounds, no masses : Deferred Back: Nontender, no CVA tenderness, no midline spinal tenderness, deformities, step-offs Extremities: Nontender full range of motion, no trauma Skin: Normal color, no trauma, abrasions Neuro: Alert, oriented, cranial nerves II through XII grossly intact. Psychiatry: Normal mood. Normal affect. Not depressed. Not anxious. Results Lab / Micro Data Result Diagrams: 09/04/21 14:00 09/04/21 14:00 Labs: Laboratory Results - last 24 hr 09/04/21 14:00: WBC 7.4, RBC 6.07, Hgb 17.1 H, Hct 51.1, MCV 84.2, MCH 28.2, MCHC 33.5, RDW Std Deviation 38.2, RDW Coeff of Melanie 12.4, Plt Count 284, MPV 10.0, Immature Gran % (Auto) 0.100, Neut % (Auto) 58.9, Lymph % (Auto) 32.8, [place] % (Auto) 6.8, Eos % (Auto) 1.1, Baso % (Auto) 0.3, Absolute Neuts (auto) 4.3, Absolute Lymphs (auto) 2.41, Nucleated RBC % 0 09/04/21 14:00: Sodium 136, Potassium 4.1, Chloride 100, Carbon Dioxide 26.0, Anion Gap 10, BUN 16, Creatinine 1.13, Estim Creat Clear Calc 85.35, Est GFR (MDRD) Af Amer 85, Est GFR (MDRD) Non-Af 70, BUN/Creatinine Ratio 14.2, Glucose 357 H, Calcium 8.8 09/04/21 14:00: Troponin I High Sens 12 09/04/21 19:25: Urine Color Yellow, Urine Clarity Clear, Urine pH 5.0, Ur Specific [place] 1.025, Urine Protein 30 H, Urine Glucose (UA) 1000 H, Urine Ketones 5 H, Urine Occult Blood Negative, Urine Nitrite Negative, Urine Bilirubin Negative, Urine Urobilinogen Normal, Ur Leukocyte Esterase Negative, Urine RBC 0 SEEN, Urine WBC 0 SEEN, Ur Squamous Epith Cells 0-5 SEEN, Urine B acteria 0 SEEN, Urine Mucus 0 SEEN 09/04/21 21:42: POC Glucose 141 H Radiology Impression Brain CT 09/04/21 16:29 IMPRESSION: Old left lacunar infarct. No evidence for acute intracranial bleed Electronically Signed: Rashaad Sellers MD at 16:55 EST , Service support , Cervical Spine CT 09/04/21 16:29 IMPRESSION: No evidence for acute fracture or subluxation.. Postop change at C5-6 and C6-7 Mild spondylosis most severe at C3-4. Electronically Signed: Rashaad Sellers MD at 16:58 EST , Service support , Head/Neck CTA 09/04/21 19:58 IMPRESSION: Normal CTA Head and neck with contrast. Electronically Signed: Rashaad Sellers MD at 22:51 EST , Service support , Assessment & Plan Assessment/Plan (1) Acute encephalopathy: (2) Blunt head trauma: QUALIFIERS: Encounter type: initial encounter Qualified Code(s): S09.8XXA - Other specified injuries of head, initial encounter PLAN: Acute encephalopathy/blunt head trauma Head/neck CTA, cervical spine CT and brain CT was independently interpreted and agree radiologist interpretation above. Emergent department the discussed the case with [facility] neurologist who recommended stroke work-up with MRI. We will hold Eliquis until MRI brain. MRI ordered. We will get echocardiogram. NIH per stroke protocol. Labetalol and hydrochlorothiazide optimize hypertension ordered. PT and OT to work with patient and evaluate We will get A1c and lipid panel Consider aspirin and statin after MRI. Review of labs showed hemoglobin of 17.1. Tylenol for pain Diabetes mellitus Patient with hyperglycemia on presentation Accu-Chek QA [facility] with correction scale insulin ordered. History of a PE and clots in left. Hold Eliquis for now. After MRI brain if there is no hemorrhage consider resuming Eliquis DVT prophylaxis: SCD Charges/Coding Visit Charges Inpatient E&M: 03810 Init Hosp L3
[2021-09-05] MEDS: Acetaminophen 500 MG Tablet 1000 MG PO (00:45)
--- NOTE | 2021-09-05 01:05 | MRI_ITS ---
STUDY: MRI BRAIN WITHOUT CONTRAST REASON FOR EXAM: Male, 61 years old. CVA TECHNIQUE: Standardized multiplanar fat and water weighted pulse sequences were obtained. COMPARISON: CT 09/04/2021, MRI 04/10/2019 FINDINGS: There is mild cerebral atrophy with widening of the extra-axial spaces and ventricular dilatation. There are a limited number of small white matter hyperintensities, distributed throughout the deep white matter tracts of the cerebral hemispheres, consistent with mild chronic white matter ischemic changes. There is no evidence for recent intracranial ischemia or other cause of cytotoxic edema on diffusion weighted imaging (DWI). Normal T2* images of the brain without demonstrated susceptibility artifact. There is no demonstrated hemosiderin stain. Chronic lacunar infarct of the left basal ganglia. Normal thalami. There is no extra-axial fluid accumulation. Normal flow voids within the major intracranial circulation suggesting patency by spin echo criteria. Normal sella turcica, pituitary gland, infundibular stalk, optic chiasm and hypothalamus. Normal tectal plate and pineal gland. Normal midbrain, jeremie and medulla. Normal cerebellum. Normal basal cisterns. Normal bilateral temporal bones. Normal bilateral internal auditory canals. No demonstrated orbital abnormality, within the constraints of a routine brain study. Normal visualized paranasal sinuses. Normal calvarium and skull base. Normal visualized soft tissue structures. Normal visualized upper cervical spine. MRI/Brain without Contrast IMPRESSION: Involutional changes of the brain, as described above. No acute infarct. Electronically Signed: Raffaele Negron MD at 12:40 EST Tel , Service support ,
--- NOTE | 2021-09-05 01:05 | ECHOD_ITS ---
Reason For Study: TIA/CVA Procedure This was a 2D Doppler, Color Flow transthoracic echocardiogram. Exam performed portable in patient room. Left Ventricle Normal left ventricle. The estimated ejection fraction is 55-60 %. Right Ventricle Normal right ventricle. Normal systolic function. Atria Normal left atrium. Normal right atrium. Mitral Valve The mitral valve is structurally normal. No prolapse or stenosis seen. No mitral valve insufficiency. Tricuspid Valve Normal tricuspid valve. Mild tricuspid valve insufficiency. Great Vessels Normal aortic root. Pericardium/Pleural No pericardial effusion. Medication Negative bubble study on previous echo. MMode/2D Measurements & Calculations LVIDd: 4.1 cm IVSd: 1.4 cm Ao root diam: 3.6 cm LVIDs: 2.4 cm LVPWd: 1.4 cm RVDd: 3.4 cm FS: 41.7 % LAV(MOD-bp): 48.2 ml LVAd ap4: 41.0 cm2 LVAd ap2: 31.6 cm2 LAV(MOD-bp) Indexed: 19.7 ml/m2 LVLd ap4: 9.5 cm LVLd ap2: 9.2 cm LAV(MOD-sp2): 47.5 ml EDV(MOD-sp4): 146.6 ml EDV(MOD-sp2): 88.5 ml LAV(MOD-sp4): 49.3 ml EDV(sp4-el): 149.9 ml EDV(sp2-el): 92.1 ml LVAs ap4: 21.1 cm2 LVAs ap2: 18.8 cm2 LVLs ap4: 8.0 cm LVLs ap2: 8.4 cm ESV(MOD-sp4): 47.5 ml ESV(MOD-sp2): 36.9 ml ESV(sp4-el): 47.1 ml ESV(sp2-el): 35.9 ml EF(MOD-sp4): 67.6 % EF(MOD-sp2): 58.3 % EF(sp4-el): 68.6 % SV(MOD-sp4): 99.2 ml SV(MOD-sp2): 51.6 ml SV(sp4-el): 102.8 ml LA dimension(2D): 3.9 cm LA A4 area: 17.7 cm2 RA A4 area: 14.3 cm2 Doppler Measurements & Calculations MV E max td: 87.3 cm/sec Lat Peak E' Td: 8.1 cm/sec Med Peak E' Td: 7.8 cm/sec MV A max td: 125.3 cm/sec E/E' lat: 10.8 E/E' med: 11.2 MV E/A: 0.70 Ao V2 max: 158.4 cm/sec LV V1 max: 102.0 cm/sec PA V2 max: 124.2 cm/sec Ao max P.0 mmHg LV V1 max P.2 mmHg ECHO/Echo Complete Interpretation Summary The estimated ejection fraction is 55-60 %. No significant change from prior echo in 03/2019 Ordering Physician: Otoniel Patrick Referring Physician: MD Anyi Billy Performed By: Sima Hamm RDCS
--- NOTE | 2021-09-05 01:10 | NURSING ---
Pt reports he got one dose of the pfizer vaccine, unsure of date .
--- NOTE | 2021-09-05 01:11 | PCS.PANDOC ---
PANDEMIC DOCUMENTATION INITIATED: Date: 04/28/2021 Time: 190
[2021-09-05 02:21] LABS: Bedside Glucose 281 mg/dL (70-110)
[2021-09-05] MEDS: 0.9% Saline Lock 10 ML Syringe IV ×3 (04:14→21:13)
[2021-09-05] MEDS: Ketorolac 15 MG/ML Vial IV ×3 (04:14→21:13)
[2021-09-05] MEDS: Ondansetron 4 MG/2 ML Vial IV (04:17)
[2021-09-05 06:35] LABS: Absolute Lymphocyte Count 1.16 X10^3/uL (0.83-4.51); Absolute Neutrophil Count 11.1 X10^3/uL (2.0-7.7); Basophil# 0.01 X10^3/uL; Basophil% 0.1 % (0-1); Hematocrit 48.2 % (40-54); Hemoglobin 16.1 g/dL (13.0-16.5); Lymphocyte # 1.16 X10^3/ul (0.83-4.51); Lymphocyte % 9.1 % (19-41); Mean Corp Hgb Conc 33.4 g/dL (32-36); Mean Corpuscular Hgb 28.1 pg (27.0-32.0); Mean Corpuscular Volume 84.3 fL (80-94); Mean Platelet Vol. 9.6 fl (6.2-12.0); Monocyte# 0.33 X10^3/uL; Monocyte% 2.6 % (0-10); NRBC Flagged by Analyzer 0 % (0-5); Neutrophil # 11.14 X10^3/uL (2.7-7.7); Neutrophil % 87.9 % (47-70); Platelet Count 287 K/mm3 (150-450); RBC Distribution Width CV 12.6 % (11.6-14.6); RBC Distribution Width SD 38.8 fl (35.1-43.9); Red Blood Count 5.72 M/mm3 (4.6-6.2); White Blood Count 12.7 K/mm3 (4.4-11.0)
[2021-09-05 07:03] LABS: Anion Gap 8 (5-15); BUN 19 mg/dL (7-18); BUN/Creat Ratio 18.4 RATIO (10-20); Calcium,Total 8.5 mg/dL (8.5-10.1); Chloride 102 mmol/L (98-107); Cholesterol 252 mg/dL (200); Creatinine, Serum 1.03 mg/dL (0.70-1.30); EST Glomerular Filtration Rate 78 mL/min (>60); Est Glom Filt Rate - Afr Amer 95 mL/min (>60); Estimated Creatinine Clearance 88.67 ml/min; Glucose 243 mg/dL (74-106); High Density Lipoprotein 37 mg/dL; Potassium 4.6 mmol/L (3.5-5.1); Sodium Level 134 mmol/L (136-145); Triglycerides 85 mg/dL; Very Low Density Lipoprotein 17 mg/dL (5-40)
[2021-09-05] MEDS: buPROPion (XL) 150 MG TABLET.XL PO (08:44)
[2021-09-05] MEDS: DULoxetine Hcl 30 MG Capsule PO (08:44)
[2021-09-05] MEDS: Citalopram 20 MG Tablet PO (08:44)
[2021-09-05] MEDS: Insulin Lispro 100 UNIT/ML INSULN.PEN 8 UNIT SC ×3 (08:45→16:42)
[2021-09-05] MEDS: Insulin Lispro 100 UNIT/ML INSULN.PEN SC ×4 (08:45→21:08)
[2021-09-05] MEDS: Acetaminophen 325 MG Tablet 650 MG PO ×2 (08:50→21:12)
[2021-09-05 08:55] LABS: Bedside Glucose 293 mg/dL (70-110)
[2021-09-05 09:12] LABS: Hemoglobin A1c 8.5 % (3.8-5.6)
--- NOTE | 2021-09-05 09:40 | CASEMGMT ---
RN JONNATHAN Face to Face with patient for initial transition planning/care coordination assessment. RN CM introduced self and role at [facility]. Patient sitting in chair, alert and oriented. Patient willing to participate in assessment and is able to answer all questions appropriately. Care providers, pharmacy, and demographics verified. Patient wishes to discharge home, with resumption of outpatient therapy. Patient states he has no further needs or concerns at this time. CM to follow for discharge planning needs that may arise. PCP: Anyi Specialists: none Preferred Pharmacy: [facility] Insurance: [employer] Prescription Benefit: yes Living Will/HPOA: sister Kimi Larios LNOK: , sister Living Arrangements: Patient lives with in a 2 story home. Patient states he is independent and able to ambulate stairs at home. Transportation: DME/C: Patient states he has shower chair, raised toilet, cane, and walker at home. Patient states he was previously at [facility]. Patient is currently attending outpatient therapy at [facility] for PT/OT/ST. Disposition Plan: Patient to discharge home with outpatient therapy, family support, and follow-up plans in place. Mireya DOUGLAS, RN, CM
[2021-09-05] MEDS: LORazepam 2 MG/ML Syringe 1 MG IV (10:06)
[2021-09-05 12:00] LABS: Bedside Glucose 209 mg/dL (70-110)
--- NOTE | 2021-09-05 14:44 | CASEMGMT ---
TANYA DE SANTIAGO called and spoke to regarding discharge planning. Shana [phone]. states that her son would be available 05/04 to assist with patient. Patient states that he would be will to go to SNF if needed for additional rehab if family not comfortable with patient going home. Patient is currently require min assist of 1 and walked 50ft with therapy. TANYA DE SANTIAGO updated hospitalist PAULINE Garner regarding concerns. Therapy to work with patient tomorrow to determine safe discharge plan of home with outpatient therapy with family assistance or SNF.
--- NOTE | 2021-09-05 14:55 | PCM.PN.HOSP ---
Documented by User: Pascual CARPENTER 09/05/21 15:11 Subjective Subjective Patient is a 61-year-old male comfortably resting in a chair, alert and orient x3. Patient is weak and unsteady but does not demonstrate any focal neurological deficits. Denies development of any new symptoms overnight. Does not appear in acute distress. Objective Data Objective Data Vital Signs: Vital Signs Temp Pulse Resp BP Pulse Ox 97 F L 103 H 18 157/98 H 96 09/05/21 12:20 09/05/21 12:20 09/05/21 12:20 09/05/21 12:20 09/05/21 12:20 Oxygen Delivery Method Room Air Weight: 253 lb 1.451 oz Body Mass Index (BMI) 32.5 Intake & Output: Intake and Output for Last 24 Hours 09/03/21 09/04/21 09/05/21 23:59 23:59 23:59 Intake Total 1000 / 1000 420 / 420 Output Total 700 / 700 Balance 1000 / 1000 -280 / -280 Lab / Micro Data Result Diagrams: 09/05/21 06:15 09/05/21 06:15 Labs: Laboratory Results - last 24 hr 09/04/21 14:00: WBC 7.4, RBC 6.07, Hgb 17.1 H, Hct 51.1, MCV 84.2, MCH 28.2, MCHC 33.5, RDW Std Deviation 38.2, RDW Coeff of Melanie 12.4, Plt Count 284, MPV 10.0, Immature Gran % (Auto) 0.100, Neut % (Auto) 58.9, Lymph % (Auto) 32.8, [place] % (Auto) 6.8, Eos % (Auto) 1.1, Baso % (Auto) 0.3, Absolute Neuts (auto) 4.3, Absolute Lymphs (auto) 2.41, Nucleated RBC % 0 09/04/21 14:00: Sodium 136, Potassium 4.1, Chloride 100, Carbon Dioxide 26.0, Anion Gap 10, BUN 16, Creatinine 1.13, Estim Creat Clear Calc 85.35, Est GFR (MDRD) Af Amer 85, Est GFR (MDRD) Non-Af 70, BUN/Creatinine Ratio 14.2, Glucose 357 H, Calcium 8.8 09/04/21 14:00: Troponin I High Sens 12 09/04/21 19:25: Urine Color Yellow, Urine Clarity Clear, Urine pH 5.0, Ur Specific [place] 1.025, Urine Protein 30 H, Urine Glucose (UA) 1000 H, Urine Ketones 5 H, Urine Occult Blood Negative, Urine Nitrite Negative, Urine Bilirubin Negative, Urine Urobilinogen Normal, Ur Leukocyte Esterase Negative, Urine RBC 0 SEEN, Urine WBC 0 SEEN, Ur Squamous Epith Cells 0-5 SEEN, Urine Bacteria 0 SEEN, Urine Mucus 0 SEEN 09/04/21 21:42: POC Glucose 141 H 09/05/21 02:07: POC Glucose 281 H 09/05/21 06:15: WBC 12.7 H, RBC 5.72, Hgb 16.1, Hct 48.2, MCV 84.3, MCH 28.1, MCHC 33.4, RDW Std Deviation 38.8, RDW Coeff of Melanie 12.6, Plt Count 287, MPV 9.6, Immature Gran % (Auto) 0.300, Neut % (Auto) 87.9 H, Lymph % (Auto) 9.1 L, [place] % (Auto) 2.6, Eos % (Auto) 0.0, Baso % (Auto) 0.1, Absolute Neuts (auto) 11.1 H, Absolute Lymphs (auto) 1.16, Nucleated RBC % 0 09/05/21 06:15: Sodium 134 L, Potassium 4.6, Chloride 102, Carbon Dioxide 24.0, Anion Gap 8, BUN 19 H, Creatinine 1.03, Estim Creat Clear Calc 88.67, Est GFR (MDRD) Af Amer 95, Est GFR (MDRD) Non-Af 78, BUN/Creatinine Ratio 18.4, Glucose 243 H, Calcium 8.5, Triglycerides 85, Cholesterol 252 H, LDL Cholesterol 198 H, VLDL Cholesterol 17, HDL Cholesterol 37 L 09/05/21 06:15: Hemoglobin A1c 8.5 H 09/05/21 08:35: POC Glucose 293 H 09/05/21 11:41: POC Glucose 209 H Radiography Diagnostic Testing: Radiology Impression Brain CT 09/04/21 16:29 IMPRESSION: Old left lacunar infarct. No evidence for acute intracranial bleed Electronically Signed: Rashaad Sellers MD at 16:55 EST , Service support , Cervical Spine CT 09/04/21 16:29 IMPRESSION: No evidence for acute fracture or subluxation.. Postop change at C5-6 and C6-7 Mild spondylosis most severe at C3-4. Electronically Signed: Rashaad Sellers MD at 16:58 EST , Service support , Head/Neck CTA 09/04/21 19:58 IMPRESSION: Normal CTA Head and neck with contrast. Electronically Signed: Rashaad Sellers MD at 22:51 EST , Service support , Brain MRI 09/05/21 01:05 IMPRESSION: Involutional changes of the brain, as described above. No acute infarct. Electronically Signed: Raffaele Negron MD at 12:40 EST Tel , Service support , Physical Exam Const alert, oriented x3 and no apparent distress HEENT head/scalp atraumatic and moist oral mucous membranes Head and Scalp: normocephalic Eyes PERRL, EOMs intact bilaterally and conjunctivae normal Neck no lymphadenopathy, supple and no JVD Resp normal respiratory effort, no retractions and no use of accessory muscles Cardio regular rate, regular rhythm, no murmurs and no JVD GI normal to inspection, nondistended, normoactive bowel sounds, soft to palpation and non-tender Extremity normal to inspection, full ROM and no clubbing, cyanosis or edema Skin no rashes or lesions noted, no wounds and skin turgor normal Neuro CN's II-XII intact bilaterally Psych affect normal Assessment & Plan Assessment/Plan (1) Acute encephalopathy: (2) Blunt head trauma: QUALIFIERS: Encounter type: initial encounter Qualified Code(s): S09.8XXA - Other specified injuries of head, initial encounter PLAN: Day 1 Discharge planning: To be determined. 1) acute encephalopathy with strokelike symptoms Patient confusion has resolved from admission and he is appropriately alert and oriented. Does not demonstrate any focal neurological deficits on my exam, however is extremely weak. MRI does not demonstrate any evidence of acute ischemia or infarction. Patient likely to need skilled therapy on discharge, physical therapy to follow. 2) blunt head trauma CT of the head and neck only demonstrated old lacunar infarct and demonstrated no evidence of acute intracranial bleed, no acute fracture seen on CT of the spine. We will continue to monitor. 3) hyponatremia Sodium currently 134, likely due to poor oral intake. We will continue to monitor BMP. 4) HTN Elevated due to allowance of permissive hypertension. Will reinitiate metoprolol, continue to hold amlodipine and hydrochlorothiazide. As needed hydralazine ordered. 5) history of PE On Xarelto, continue anticoagulation. DVT prophylaxis - Xarelto Patient seen by Pascual Vicente PA-C, under the supervision of Dr. Hamilton. Documented by User: Dr. Nina Hamilton MD 09/05/21 15:47 Objective Data Lab / Micro Data Result Diagrams: 09/05/21 06:15 09/05/21 06:15 Charges/Coding Addendum Addendum: Patient seen by Pascual Vicente PA-C under my supervision Patient seen and examined. HE was admitted with complaint of syncope and mechanical fall. He is being worked up for stroke. He had MRI today which was negative for any evidence of stroke. PT evaluated him and it is thought he will benefit again from SNF. O/E: Const alert, oriented x3 and no apparent distress HEENT head/scalp atraumatic and moist oral mucous membranes Head and Scalp: normocephalic Eyes PERRL, EOMs intact bilaterally and conjunctivae normal Neck no lymphadenopathy, supple and no JVD Resp normal respiratory effort, no retractions and no use of accessory muscles Cardio regular rate, regular rhythm, no murmurs and no JVD GI normal to inspection, nondistended, normoactive bowel sounds, soft to palpation and non-tender Extremity normal to inspection, full ROM and no clubbing, cyanosis or edema Skin no rashes or lesions noted, no wounds and skin turgor normal Neuro CN's II-XII intact bilaterally Psych affect normal Plan is to manage patient for syncope. To continue working with PT/OT. Fall precautions. Case management on board to help with placement. CT of the brain and MRI of the brain were both negative for any evidence of infarct or any bleed in the brain. PT/OT on board. BP was also elevated. Since stroke has been ruled out with negative CT and MRI, will resume metoprolol as well as HCTZ and amlodipine. Continue xarelto due to history of PE. Rest as per Pascual Vicente PA-C's note, which I have reviewed and endorsed. Visit Charges OBSV E&M: 32427 Subsequent observation care L2
[2021-09-05] MEDS: hydrALAZINE 20 MG/ML Vial 5 MG IV (16:41)
[2021-09-05] MEDS: Rivaroxaban 20 MG Tablet PO (16:42)
[2021-09-05 17:00] LABS: Bedside Glucose 248 mg/dL (70-110)
[2021-09-05] MEDS: Metoprolol Tartrate 50 MG Tablet PO (21:07)
[2021-09-05] MEDS: busPIRone 5 MG Tablet PO (21:07)
[2021-09-05] MEDS: Tamsulosin HCl 0.4 MG Capsule PO (21:07)
[2021-09-05] MEDS: Atorvastatin Calcium 40 MG Tablet PO (21:07)
[2021-09-05] MEDS: Zolpidem Tartrate 5 MG Tablet PO (21:12)
[2021-09-05 21:21] LABS: Bedside Glucose 311 mg/dL (70-110)
[2021-09-06 03:00] VITALS: PULSE 61
[2021-09-06 03:25] VITALS: BP 152/105; PULSE 62; RESP 20; TEMP 36.5; O2SAT 98
[2021-09-06 06:23] LABS: Absolute Lymphocyte Count 3.05 X10^3/uL (0.83-4.51); Absolute Neutrophil Count 4.4 X10^3/uL (2.0-7.7); Basophil# 0.02 X10^3/uL; Basophil% 0.2 % (0-1); Eosinophil# 0.12 X10^3/uL; Eosinophils% 1.5 % (0-5); Hematocrit 46.9 % (40-54); Hemoglobin 14.9 g/dL (13.0-16.5); Lymphocyte # 3.05 X10^3/ul (0.83-4.51); Lymphocyte % 37.2 % (19-41); Mean Corp Hgb Conc 31.8 g/dL (32-36); Mean Corpuscular Hgb 27.5 pg (27.0-32.0); Mean Corpuscular Volume 86.5 fL (80-94); Mean Platelet Vol. 9.6 fl (6.2-12.0); Monocyte# 0.58 X10^3/uL; Monocyte% 7.1 % (0-10); NRBC Flagged by Analyzer 0 % (0-5); Neutrophil # 4.41 X10^3/uL (2.7-7.7); Neutrophil % 53.8 % (47-70); Platelet Count 264 K/mm3 (150-450); RBC Distribution Width CV 12.9 % (11.6-14.6); RBC Distribution Width SD 40.3 fl (35.1-43.9); Red Blood Count 5.42 M/mm3 (4.6-6.2); White Blood Count 8.2 K/mm3 (4.4-11.0)
[2021-09-06 06:42] LABS: Anion Gap 5 (5-15); BUN 29 mg/dL (7-18); BUN/Creat Ratio 27.1 RATIO (10-20); Calcium,Total 8.3 mg/dL (8.5-10.1); Chloride 102 mmol/L (98-107); Creatinine, Serum 1.07 mg/dL (0.70-1.30); EST Glomerular Filtration Rate 75 mL/min (>60); Est Glom Filt Rate - Afr Amer 91 mL/min (>60); Estimated Creatinine Clearance 85.36 ml/min; Glucose 302 mg/dL (74-106); Potassium 4.3 mmol/L (3.5-5.1); Sodium Level 134 mmol/L (136-145)
[2021-09-06 07:32] VITALS: PULSE 71
[2021-09-06] MEDS: Aspirin 81 MG TAB.CHEW PO (08:30)
[2021-09-06] MEDS: Insulin Lispro 100 UNIT/ML INSULN.PEN SC ×2 (08:30→12:10)
[2021-09-06] MEDS: Insulin Lispro 100 UNIT/ML INSULN.PEN 8 UNIT SC ×2 (08:30→12:10)
[2021-09-06 08:31] VITALS: PULSE 71
[2021-09-06] MEDS: buPROPion (XL) 150 MG TABLET.XL PO (08:31)
[2021-09-06] MEDS: DULoxetine Hcl 30 MG Capsule PO (08:31)
[2021-09-06] MEDS: Metoprolol Tartrate 50 MG Tablet PO (08:31)
[2021-09-06] MEDS: Citalopram 20 MG Tablet PO (08:31)
[2021-09-06 08:41] LABS: Bedside Glucose 292 mg/dL (70-110)
--- NOTE | 2021-09-06 09:57 | PCM.DC ---
Discharge Instructions Diet Discharge Diet: No restrictions Activity Discharge Activity: Return to Normal Activity Weight Bearing Status: Weight bearing as tolerated Dressing / Incision Call your doctor if you observe: Fever of 101 or Higher, Numbness or Tingling, Shortness of breath, Dizziness, Chest pain, Increased palpitations (irregular heartbeat) and Calf discomfort Follow Up Care Please Follow Up With: Primary care provider When: Within the next two weeks. Test Results: Test results from this visit will be discussed in further detail at your follow-up appointment, if applicable. Discharge Plan Admission Admit Date/Time: 09/05/21 00:02 Primary Reason for Your Visit: Stroke like symptoms. Attending Provider: Nina Hamilton Primary Care Provider: Billy De Santiago Instructions Additional Instructions / Restrictions: * Work with your primary care provider in regards to better regulation of diabetes mellitus, your hemoglobin A1C was 8.5. Goal is 7 or below. * Continue to work with home health care for ongoing therapy. Discharge Orders/Prescriptions Prescriptions: Continued citalopram 40 MG tablet 20 mg PO DAILY RF: 0 amlodipine 10 MG tablet 10 mg PO DAILY RF: 0 metformin 500 mg Tablet 2,000 mg PO DAILY RF: 0 buspirone 5 mg tablet 5 mg PO QHS RF: 0 zolpidem 10 mg tablet 10 mg PO QHS PRN (Reason: Insomnia) RF: 0 bupropion HCl 150 mg tablet extended release 24 hr 150 mg PO DAILY RF: 0 Lantus Solostar U-100 Insulin 100 unit/mL (3 mL) insulin pen 25 unit SUBCUT QHS RF: 0 atorvastatin 20 MG tablet 40 mg PO QHS RF: 0 aspirin 81 mg tablet,chewable 1 tab PO DAILY RF: 0 hydrochlorothiazide 25 mg tablet 25 mg PO DAILY RF: 0 tamsulosin 0.4 mg capsule 0.4 mg PO QHS RF: 0 metoprolol tartrate 50 mg tablet 50 mg PO BID RF: 0 Xarelto 20 mg tablet 20 mg PO DINNER RF: 0 insulin lispro [Humalog KwikPen Insulin] 100 unit/mL insulin pen 8 unit SUBCUT TIDCM RF: 0 duloxetine 30 mg capsule,delayed release(DR/EC) 30 mg PO DAILY RF: 0 Referrals / Follow Up: Billy De Santiago MD [Primary Care Provider] - Within 2 Weeks Disposition Disposition (needs filled in before D/C Order can be placed): Home, Self Care
--- NOTE | 2021-09-06 10:17 | PCM.DC.SUM ---
Documented by User: Pascual CARPENTER 09/06/21 11:55 Providers Date of Admission: 09/05/21 Primary Care Physician: Dr. Billy De Santiago MD Reason For Visit: BLUNT TRAUMA TO HEAD Diagnosis Discharge Diagnosis (1) Acute encephalopathy: Status: Acute Code(s): G93.40 - Encephalopathy, unspecified (2) Blunt head trauma: Status: Acute Code(s): S09.8XXA - Other specified injuries of head, initial encounter Qualifiers: Encounter type: initial encounter Qualified Code(s): S09.8XXA - Other specified injuries of head, initial encounter Medications at Discharge Home Medications citalopram 20 mg PO DAILY 07/05/16 amlodipine 10 mg PO DAILY 12/29/17 metformin 2,000 mg PO DAILY 01/20/21 Lantus Solostar U-100 Insulin 25 unit SUBCUT QHS 04/15/21 atorvastatin 40 mg PO QHS 04/15/21 bupropion HCl 150 mg PO DAILY 04/15/21 buspirone 5 mg PO QHS 04/15/21 zolpidem 10 mg PO QHS PRN 04/15/21 Xarelto 20 mg PO DINNER 09/05/21 aspirin 1 tab PO DAILY 09/05/21 duloxetine 30 mg PO DAILY 09/05/21 hydrochlorothiazide 25 mg PO DAILY 09/05/21 insulin lispro [Humalog KwikPen Insulin] 8 unit SUBCUT TIDCM 09/05/21 metoprolol tartrate 50 mg PO BID 09/05/21 tamsulosin 0.4 mg PO QHS 09/05/21 Hospital Course Procedures 2-D Echocardiogram and Transthoracic echo Summary of Care Provided Minutes Spent on Discharge: 35 Hospital Course: Disposition: Patient to discharge home. 1) acute encephalopathy with strokelike symptoms Patient confusion has resolved from admission and he is appropriately alert and oriented. Does not demonstrate any focal neurological deficits on my exam. MRI does not demonstrate any evidence of acute ischemia or infarction. Echocardiogram demonstrates an EF of 55 to 60% and shows no significant change from prior study. There was some concern from initial physical therapy evaluation that patient would need skilled therapy before going home. Patient significantly improved in his strength and ability with physical therapy. Patient has a cane and walker at home and can rely on his son and for support if needed. Patient also has home health care, which he should continue. Patient already on appropriate aspirin and statin regimen. Hemoglobin A1c noted to be 8.5, patient should follow-up with primary care provider for tighter regulation of his diabetic care. 2) blunt head trauma CT of the head and neck only demonstrated old lacunar infarct and demonstrated no evidence of acute intracranial bleed, no acute fracture seen on CT of the spine. 3) hyponatremia Sodium currently 134, likely due to poor oral intake. Stable for discharge. 4) HTN Reinitiate home BP regimen. 5) history of PE On Xarelto, continue anticoagulation. Patient seen by Pascual Vicente PA-C, under the supervision of Dr. Hamilton. Physical Exam Narrative Patient is a 61-year-old male comfortably resting in bed, alert and orient x3. Denies development of any new symptoms overnight. Does not appear in acute distress. Const alert, oriented x3 and no apparent distress HEENT normocephalic, head/scalp atraumatic and hearing grossly normal bilaterally Eyes PERRL, EOMs intact bilaterally and conjunctivae normal Neck no lymphadenopathy, supple and no JVD Resp normal respiratory effort, no retractions and no use of accessory muscles Cardio regular rate, regular rhythm, no murmurs and no JVD GI normal to inspection, nondistended, normoactive bowel sounds, soft to palpation and non-tender Extremity normal to inspection, full ROM and no clubbing, cyanosis or edema Skin no rashes or lesions noted, no wounds and skin turgor normal Neuro CN's II-XII intact bilaterally Psych affect normal Weight / BMI Weight Weight: 253 lb 1.451 oz Body Mass Index (BMI) 32.5 ABG / Lab / Microbiology Data Result Diagrams: 09/06/21 06:01 09/06/21 06:01 Laboratory: Laboratory Results - last 24 hr 09/05/21 11:41: POC Glucose 209 H 09/05/21 16:32: POC Glucose 248 H 09/05/21 21:04: POC Glucose 311 H 09/06/21 06:01: WBC 8.2, RBC 5.42, Hgb 14.9, Hct 46.9, MCV 86.5, MCH 27.5, MCHC 31.8 L, RDW Std Deviation 40.3, RDW Coeff of Melanie 12.9, Plt Count 264, MPV 9.6, Immature Gran % (Auto) 0.200, Neut % (Auto) 53.8, Lymph % (Auto) 37.2, [place] % (Auto) 7.1, Eos % (Auto) 1.5, Baso % (Auto) 0.2, Absolute Neuts (auto) 4.4, Absolute Lymphs (auto) 3.05, Nucleated RBC % 0 09/06/21 06:01: Sodium 134 L, Potassium 4.3, Chloride 102, Carbon Dioxide 27.0, Anion Gap 5, BUN 29 H, Creatinine 1.07, Estim Creat Clear Calc 85.36, Est GFR (MDRD) Af Amer 91, Est GFR (MDRD) Non-Af 75, BUN/Creatinine Ratio 27.1 H, Glucose 302 H, Calcium 8.3 L 09/06/21 08:28: POC Glucose 292 H Radiography Diagnostic Testing: Radiology Impression Brain MRI 09/05/21 01:05 IMPRESSION: Involutional changes of the brain, as described above. No acute infarct. Electronically Signed: Raffaele Negron MD at 12:40 EST Tel , Service support , Echocardiogram 09/05/21 01:05 Interpretation Summary The estimated ejection fraction is 55-60 %. No significant change from prior echo in 03/2019 Ordering Physician: Otoniel Patrick Referring Physician: MD Anyi Billy Performed By: Sima Hamm, [facility] D/C Instructions Discharge Diet: No restrictions Weight Bearing Status: Weight bearing as tolerated Call your doctor if you observe: Fever of 101 or Higher, Numbness or Tingling, Shortness of breath, Dizziness, Chest pain, Increased palpitations (irregular heartbeat) and Calf discomfort Please Follow Up With: Primary care provider When: Within the next two weeks. Meaningful Use Info Meaningful Use Diagnoses (Choose all that apply): None applicable Discharge Plan Admission Admit Date/Time: 09/05/21 00:02 Primary Reason for Your Visit: Stroke like symptoms. Attending Provider: Nina Hamilton Primary Care Provider: Billy De Santiago Instructions Additional Instructions / Restrictions: * Work with your primary care provider in regards to better regulation of diabetes mellitus, your hemoglobin A1C was 8.5. Goal is 7 or below. * Continue to work with home health care for ongoing therapy. Discharge Orders/Prescriptions Prescriptions: Continued citalopram 40 MG tablet 20 mg PO DAILY RF: 0 amlodipine 10 MG tablet 10 mg PO DAILY RF: 0 metformin 500 mg Tablet 2,000 mg PO DAILY RF: 0 buspirone 5 mg tablet 5 mg PO QHS RF: 0 zolpidem 10 mg tablet 10 mg PO QHS PRN (Reason: Insomnia) RF: 0 bupropion HCl 150 mg tablet extended release 24 hr 150 mg PO DAILY RF: 0 Lantus Solostar U-100 Insulin 100 unit/mL (3 mL) insulin pen 25 unit SUBCUT QHS RF: 0 atorvastatin 20 MG tablet 40 mg PO QHS RF: 0 aspirin 81 mg tablet,chewable 1 tab PO DAILY RF: 0 hydrochlorothiazide 25 mg tablet 25 mg PO DAILY RF: 0 tamsulosin 0.4 mg capsule 0.4 mg PO QHS RF: 0 metoprolol tartrate 50 mg tablet 50 mg PO BID RF: 0 Xarelto 20 mg tablet 20 mg PO DINNER RF: 0 insulin lispro [Humalog KwikPen Insulin] 100 unit/mL insulin pen 8 unit SUBCUT TIDCM RF: 0 duloxetine 30 mg capsule,delayed release(DR/EC) 30 mg PO DAILY RF: 0 Referrals / Follow Up: Billy De Santiago MD [Primary Care Provider] - Within 2 Weeks Disposition Disposition (needs filled in before D/C Order can be placed): Home, Self Care Documented by User: Dr. Nina Hamilton MD 09/06/21 12:38 Providers Date of Admission: 09/05/21 Reason For Visit: BLUNT TRAUMA TO HEAD Medications at Discharge Home Medications citalopram 20 mg PO DAILY 07/05/16 amlodipine 10 mg PO DAILY 12/29/17 metformin 2,000 mg PO DAILY 01/20/21 Lantus Solostar U-100 Insulin 25 unit SUBCUT QHS 04/15/21 atorvastatin 40 mg PO QHS 04/15/21 bupropion HCl 150 mg PO DAILY 04/15/21 buspirone 5 mg PO QHS 04/15/21 zolpidem 10 mg PO QHS PRN 04/15/21 Xarelto 20 mg PO DINNER 09/05/21 aspirin 1 tab PO DAILY 09/05/21 duloxetine 30 mg PO DAILY 09/05/21 hydrochlorothiazide 25 mg PO DAILY 09/05/21 insulin lispro [Humalog KwikPen Insulin] 8 unit SUBCUT TIDCM 09/05/21 metoprolol tartrate 50 mg PO BID 09/05/21 tamsulosin 0.4 mg PO QHS 09/05/21 ABG / Lab / Microbiology Data Result Diagrams: 09/06/21 06:01 09/06/21 06:01 Discharge Plan Admission Admit Date/Time: 09/05/21 00:02 Primary Reason for Your Visit: Stroke like symptoms. Attending Provider: Nina Hamilton Primary Care Provider: Billy De Santiago Instructions Additional Instructions / Restrictions: * Work with your primary care provider in regards to better regulation of diabetes mellitus, your hemoglobin A1C was 8.5. Goal is 7 or below. * Continue to work with home health care for ongoing therapy. Discharge Orders/Prescriptions Prescriptions: Continued citalopram 40 MG tablet 20 mg PO DAILY RF: 0 amlodipine 10 MG tablet 10 mg PO DAILY RF: 0 metformin 500 mg Tablet 2,000 mg PO DAILY RF: 0 buspirone 5 mg tablet 5 mg PO QHS RF: 0 zolpidem 10 mg tablet 10 mg PO QHS PRN (Reason: Insomnia) RF: 0 bupropion HCl 150 mg tablet extended release 24 hr 150 mg PO DAILY RF: 0 Lantus Solostar U-100 Insulin 100 unit/mL (3 mL) insulin pen 25 unit SUBCUT QHS RF: 0 atorvastatin 20 MG tablet 40 mg PO QHS RF: 0 aspirin 81 mg tablet,chewable 1 tab PO DAILY RF: 0 hydrochlorothiazide 25 mg tablet 25 mg PO DAILY RF: 0 tamsulosin 0.4 mg capsule 0.4 mg PO QHS RF: 0 metoprolol tartrate 50 mg tablet 50 mg PO BID RF: 0 Xarelto 20 mg tablet 20 mg PO DINNER RF: 0 insulin lispro [Humalog KwikPen Insulin] 100 unit/mL insulin pen 8 unit SUBCUT TIDCM RF: 0 duloxetine 30 mg capsule,delayed release(DR/EC) 30 mg PO DAILY RF: 0 Referrals / Follow Up: Billy De Santiago MD [Primary Care Provider] - Within 2 Weeks Disposition Disposition (needs filled in before D/C Order can be placed): Home, Self Care Charges/Coding Addendum Addendum: Patient seen by Pascual Vicente PA-C under my supervision Patient is a 61-year-old male was admitted through the ED on 09/05/2021 with a complaint of mechanical fall. Patient had been diagnosed with COVID-19 infection in April 2021 and subsequently developed PE and blood clots in his lower extremities. Was subsequently sent to a rehab facility and after was discharged home. He had continued to have outpatient physical therapy. On the day of presentation, patient was working with physical therapy and lost his balance and fell. He could not remember what made him fall. He was sent to his PCP after he fell and was noted to be more confused so he was brought into the ED. Family had concerns that he had been getting more confused and having problems with his cognition after Covid. Her blood pressure was also markedly elevated. He was admitted to be managed for mechanical fall and acute metabolic encephalopathy to rule out a stroke. CT of the brain was negative and MRI of the brain done was also negative for any evidence of stroke. 2D echo showed EF of 55 to 60% with no significant change from previous echo in March 2019. Patient remained stable and worked well with physical therapy. He was therefore discharged home on 09/06/2021 to continue with outpatient physical therapy and follow-up with his primary care doctor. Patient was seen and examined prior to discharge. He felt well and had no complaints. He was alert and oriented and metabolic encephalopathy had resolved. Review of systems otherwise negative. Labs and vitals reviewed. Home medication reviewed and reconciled. O/E: Const alert, oriented x3 and no apparent distress HEENT head/scalp atraumatic and moist oral mucous membranes Head and Scalp: normocephalic Eyes PERRL, EOMs intact bilaterally and conjunctivae normal Neck no lymphadenopathy, supple and no JVD Resp normal respiratory effort, no retractions and no use of accessory muscles Cardio regular rate, regular rhythm, no murmurs and no JVD GI normal to inspection, nondistended, normoactive bowel sounds, soft to palpation and non-tender Extremity normal to inspection, full ROM and no clubbing, cyanosis or edema Skin no rashes or lesions noted, no wounds and skin turgor normal Neuro CN's II-XII intact bilaterally Psych affect normal Plan is for discharge home today as outlined above. Rest as per Pascual Vicente PA-C's note which I have reviewed and endorsed. Visit Charges OBSV E&M: 24349 Observation care discharge
[2021-09-06 10:41] VITALS: BP 140/90; PULSE 65; RESP 18; TEMP 36.5; O2SAT 96
[2021-09-06 11:45] LABS: Bedside Glucose 198 mg/dL (70-110)
[2021-09-06 14:22] VITALS: O2SAT 96
== END 2021-09-06 15:01 | disposition home or self-care (01) | DRG 71 ==
LOC: ED 09-05 00:03 → PCU 09-05 00:17
PROVIDERS: Physician Assistant; Admitting Provider Hospitalist; Emergency Provider Emergency Medicine; PCP Family Medicine; Visit Provider Student in an Organized Health Care Education/Training Program
DX: G93.40 Encephalopathy, unspecified (principal); E87.1 Hypo-osmolality and hyponatremia; I10 Essential (primary) hypertension; E11.65 Type 2 diabetes mellitus with hyperglycemia; S09.8XXA Other specified injuries of head, initial encounter; W01.0XXA Fall on same level from slipping, tripping and stumbling without subsequent striking against object, initial encounter; Z86.711 Personal history of pulmonary embolism; Z86.73 Personal history of transient ischemic attack (TIA), and cerebral infarction without residual deficits; Z86.16 Personal history of COVID-19; Z79.01 Long term (current) use of anticoagulants; Z83.3 Family history of diabetes mellitus
CPT/HCPCS: 36415; 70450; 70496; 70498; 70551; 72125; 80048; 80061; 81001; 82962; 83036; 84484; 85025; 93005; 93306; 94762; 97110; 97116; 97162; 97165; 97530; 97802; 99285; J7040; Q9957; Q9967; A4216; J2405

== ENCOUNTER 2021-11-14 14:24 | Observation (INO) | payer BC, SELFPAY ==
[2021-11-14] VITALS (7 sets, daily range): BP systolic 156–178; BP diastolic 83–101; PULSE 74–95; RESP 14–18; TEMP 36.6–36.9; O2SAT 95–99; BMI 33.3; BMI 33.4
--- NOTE | 2021-11-14 14:47 | EKG12_ITS ---
Test Reason : DYSRHYTHMIA Blood Pressure : / mmHG Vent. Rate : 089 BPM Atrial Rate : 089 BPM P-R Int : 156 ms QRS Dur : 108 ms QT Int : 352 ms P-R-T Axes : 046 010 014 degrees QTc Int : 428 ms Normal sinus rhythm Normal ECG Confirmed by SARA SHELBY, IVAN ([id number]), video editor FIDEL BERMAN ([id number]) on 11/17/2021 10:57:10 AM Referred By: PC Confirmed By:IVAN RUIZ MD
--- NOTE | 2021-11-14 14:49 | CT_ITS ---
STUDY: CT ABDOMEN AND PELVIS WITHOUT CONTRAST REASON FOR EXAM: Male, 61 years old. Generalized abdominal pain. RADIATION DOSAGE (If Supplied By Facility): CTDIvol = ( 20.79 ) mGy, DLP = ( 1159.31 ) mGycm TECHNIQUE: Transaxial images were obtained from the dome of the diaphragm to the symphysis pubis without oral contrast, and without intravenous contrast. Sagittal and coronal images were reconstructed. Individualized dose optimization techniques were used for this CT. COMPARISON: Comparison is made with prior study dated 01/20/2021. FINDINGS: The visualized lung bases are unremarkable. The visualized portions of the heart are within normal limits. There is decreased attenuation of the liver consistent with steatosis. Normal gallbladder and extrahepatic biliary system. Normal spleen. Normal pancreas. Normal bilateral adrenal glands. Normal right kidney. Punctate calculus in the lower pole calyx of the left kidney. There is a small hiatal hernia. Normal small intestine. There are multiple colonic diverticula consistent with diverticulosis. The patient is status post appendectomy. There is scattered atherosclerotic calcification of the abdominal aorta, without a demonstrated aneurysm. Normal inferior vena cava. There is borderline retroperitoneal lymphadenopathy with enlarged nodes no greater than 10mm in the short axis diameter. Normal urinary bladder. There is enlargement of the prostate gland. Prostate measures 6.1 cm x 6.4 cm. This causes indentation of the bladder base. There is a small umbilical hernia containing fat. There are degenerative changes of the visualized lumbar spine. CT/Abdomen/Pelvis without Cont IMPRESSION: Fatty infiltration of the liver. Sigmoid diverticulosis. Nonobstructive calculus in the lower pole calyx of the left kidney. Prostatic enlargement. Electronically Signed: Simón Ro MD at 15:43 EST ,
--- NOTE | 2021-11-14 14:51 | EDS_ITS ---
HPI <MUSA Lane - Last Filed: 11/14/21 21:02> History of Present Illness Chief Complaint: General Illness Narrative Narrative: Patient is a 61-year-old male with history of hypertension, diabetes, blood clots in the legs and lungs secondary from Covid on Xarelto. Patient states that for the last several weeks, he has had increased weakness, intermittent shortness of breath as well as right abdominal pain. Patient states this has been ongoing, the pain is intermittent however there is they are 80% of time. Patient states to feel nausea however no vomiting. Patient denies any diarrhea, difficulty urinating. Patient states to have intermittent fever and chills, and a general feeling of not well. Patient denies any blood in stool or vomit. Patient is taking his Xarelto as scheduled. PFSH <MUSA Lane - Last Filed: 11/14/21 21:02> [facility] Medical History Anxiety and depression Benign essential hypertension BPH (benign prostatic hyperplasia) COVID-19 long hauler Diabetes Diabetes mellitus type 2 in obese Grade II diastolic dysfunction Hyperlipidemia Iron deficiency anemia Pulmonary embolism TIA (transient ischemic attack) Medical History unable to obtain Home Medications citalopram 20 mg PO DAILY 07/05/16 [History Last Taken 05/08/21] amlodipine 10 mg PO DAILY 12/29/17 [History Last Taken 05/08/21] metformin 2,000 mg PO DAILY 01/20/21 [History Last Taken 05/08/21] Lantus Solostar U-100 Insulin 25 unit SUBCUT QHS 04/15/21 [History Last Taken 05/08/21] atorvastatin 40 mg PO QHS 04/15/21 [History Last Taken 05/08/21] bupropion HCl 150 mg PO DAILY 04/15/21 [History Last Taken 05/08/21] buspirone 5 mg PO QHS 04/15/21 [History Last Taken 05/08/21] zolpidem 10 mg PO QHS PRN 04/15/21 [History Last Taken 05/08/21] Xarelto 20 mg PO DINNER 09/05/21 [History Last Taken Unknown] aspirin 1 tab PO DAILY 09/05/21 [History Last Taken Unknown] duloxetine 30 mg PO DAILY 09/05/21 [History Last Taken Unknown] hydrochlorothiazide 25 mg PO DAILY 09/05/21 [History Last Taken Unknown] insulin lispro [Humalog KwikPen Insulin] 8 unit SUBCUT TIDCM 09/05/21 [History Last Taken Unknown] metoprolol tartrate 50 mg PO BID 09/05/21 [History Last Taken Unknown] tamsulosin 0.4 mg PO QHS 09/05/21 [History Last Taken Unknown] Allergy/AdvReac Type Severity Reaction Status Date / Time Iodinated Contrast Media [CT] Allergy Rash Verified 05/09/21 10:41 iohexol [From Omnipaque] Allergy Rash Verified 05/09/21 10:41 Family History Mother Brain aneurysm age 65 with ruptured aneurysm. Father Diabetes Surgical History History of appendectomy History of back surgery History of knee joint replacement History of tonsillectomy Surgical History unable to obtain Social History household members: spouse Smoking Status: Never smoker alcohol intake: never substance use type: does not use ROS <MUSA Lane - Last Filed: 11/14/21 21:02> ROS ED ROS Narrative Constitutional: Negative for weight loss or gain, weakness. Positive for fever and chills Eyes: Negative for vision loss, double vision. Positive for vision change, blurred vision ENT: Negative for any hearing changes, ringing in the ears, dizziness, disch arge, pain Nose: Negative for any congestion, runny nose, sinus pain, allergies Throat: Negative for any sore throat hoarseness, voice changes, Cardiovascular: Negative for any chest pain, tightness, palpitations, racing heartbeat Respiratory: Negative for any sputum production, coughing, hemoptysis, shortness of breath on exertion. Positive for dyspnea, shortness of breath on exertion intermittently Gastrointestinal: Negative for any nausea, vomiting, diarrhea, constipation, blood in stool, blood in vomit. Positive right-sided abdominal pain : Negative for any urinary frequency, incontinence, dysuria, retention, blood in urine Muscle skeletal: Negative for any muscle joint pain, stiffness, myalgias, arthralgias, neck pain, back pain Neurological: Negative for any headache, head injury, dizziness, syncope, numbness or tingling Skin: Negative for any rashes, lumps, itching, abrasions, lacerations Psychiatric: Negative for any depression, anxiety, stress, suicidal ideation, homicidal ideation Hematologic: Negative for any easy bruising, excessive bruising, easy bleeding Allergies: Negative for any eczema, hives, rash EXAM <MUSA Lane - Last Filed: 11/14/21 21:02> Physical Exam Const Vital Signs: 11/14/21 14:25 11/14/21 15:04 11/14/21 18:46 Temperature 98.4 F 98.4 F Temperature Source Temporal Temporal Pulse Rate 93 93 95 Respiratory Rate 16 16 Respiratory Effort Normal Non-Labored Respiratory Pattern Normal Blood Pressure 178/101 H 178/101 H 158/86 H Blood Pressure Mean 126 126 110 Pulse Ox 95 95 Oxygen Delivery Method Room Air Room Air Room Air 11/14/21 19:34 11/14/21 20:51 Temperature Temperature Source Pulse Rate 74 Respiratory Rate 18 Respiratory Effort Respiratory Pattern Blood Pressure 168/87 H 161/83 H Blood Pressure Mean 109 Pulse Ox 97 Oxygen Delivery Method Positive well nourished and well developed General Appearance ED: well developed Eyes PERRL Neck no lymphadenopathy and supple Chest Wall inspection of chest normal Resp normal respiratory effort and clear to auscultation bilaterally Cardio regular rate and regular rhythm GI GI Narrative: Patient has tenderness to the right mid abdomen. This is pain on palpation, as patient states this has been getting worse over the last couple days. Negative for any right lower, right upper pain. This is midline to the right of the umbilicus Palpation: tender Back/Spine no CVA tenderness Extremity normal to inspection Neuro oriented x3 and CN's II-XII intact bilaterally Sensorium / Orientation: alert Psych mental status grossly normal Skin no rashes or lesions noted and no wounds <Dr. Og Sharma MD - Last Filed: 11/14/21 21:27> Physical Exam Const Vital Signs: 11/14/21 14:25 11/14/21 15:04 11/14/21 18:46 Temperature 98.4 F 98.4 F Temperature Source Temporal Temporal Pulse Rate 93 93 95 Respiratory Rate 16 16 Respiratory Effort Normal Non-Labored Respiratory Pattern Normal Blood Pressure 178/101 H 178/101 H 158/86 H Blood Pressure Mean 126 126 110 Pulse Ox 95 95 Oxygen Delivery Method Room Air Room Air Room Air 11/14/21 19:34 11/14/21 20:51 Temperature Temperature Source Pulse Rate 74 Respiratory Rate 18 Respiratory Effort Respiratory Pattern Blood Pressure 168/87 H 161/83 H Blood Pressure Mean 109 Pulse Ox 97 Oxygen Delivery Method [facility] <Og Smith ONCOLOGY RN-C - Last Filed: 11/14/21 21:02> [facility] Lab Data Lab results narrative: Patient appears well, patient appears nontoxic, vital signs are stable. Patient presents to the emergency department multiple weeks of not feeling well, decreased energy, difficulty breathing on exertion, this is all stemming from his COVID-19 infection in April 2021. Patient did receive a full work-up, patient CBC was unremarkable, patient's BMP showed no acute process however the patient's blood sugar was 324. Patient did receive 1 L of normal saline, as well as a CT of the brain, chest x-ray, CT of the abdomen pelvis. All of these radiologic exams were unremarkable for any acute process explain the patient's symptoms. Patient did feel slightly better after IV fluids, patient's vital signs remained stable. At this time, I believe the patient is still struggling from the COVID-19 infection. Patient will follow up closely with his PCP, instructed to return to the emergency room for any worsening chest pain, shortness of breath, fever chills nausea vomiting. Patient stable for discharge. At this time, I do not believe there is any indication of any ACS, LA, pneumonia, acute abdominal pelvic process. Labs: Laboratory Results - last 24 hr 11/14/21 11/14/21 11/14/21 15:00 15:00 15:00 WBC 7.9 RBC 5.77 Hgb 15.9 Hct 48.5 MCV 84.1 MCH 27.6 MCHC 32.8 RDW Std Deviation 42.1 RDW Coeff of Melanie 13.7 Plt Count 299 MPV 9.7 Immature Gran % (Auto) 0.400 Neut % (Auto) 53.3 Lymph % (Auto) 36.3 [place] % (Auto) 7.6 Eos % (Auto) 2.0 Baso % (Auto) 0.4 Absolute Neuts (auto) 4.2 Absolute Lymphs (auto) 2.88 Nucleated RBC % 0 Sodium 135 L Potassium 4.6 Chloride 104 Carbon Dioxide 27.0 Anion Gap 4 L BUN 16 Creatinine 1.21 Estim Creat Clear Calc 75.48 Est GFR (MDRD) Af Amer 79 Est GFR (MDRD) Non-Af 65 BUN/Creatinine Ratio 13.2 Glucose 324 H Calcium 9.3 Total Bilirubin 0.60 AST 19 ALT 43 Alkaline Phosphatase 120 H Troponin I High Sens Total Protein 7.0 Albumin 3.4 Globulin 3.6 Albumin/Globulin Ratio 0.9 Lipase 103 Urine Color Yellow Urine Clarity Clear Urine pH 5.0 Ur Specific [place] 1.015 Urine Protein Negative Urine Glucose (UA) 1000 H Urine Ketones 5 H Urine Occult Blood Negative Urine Nitrite Negative Urine Bilirubin Negative Urine Urobilinogen Normal Ur Leukocyte Esterase Negative Urine RBC 0 SEEN Urine WBC 0 SEEN Ur Squamous Epith Cells 0 SEEN Urine Bacteria 0 SEEN Urine Mucus 0 SEEN POC Glucose 11/14/21 11/14/21 19:07 20:27 WBC RBC Hgb Hct MCV MCH MCHC RDW Std Deviation RDW Coeff of Melanie Plt Count MPV Immature Gran % (Auto) Neut % (Auto) Lymph % (Auto) [place] % (Auto) Eos % (Auto) Baso % (Auto) Absolute Neuts (auto) Absolute Lymphs (auto) Nucleated RBC % Sodium Potassium Chloride Carbon Dioxide Anion Gap BUN Creatinine Estim Creat Clear Calc Est GFR (MDRD) Af Amer Est GFR (MDRD) Non-Af BUN/Creatinine Ratio Glucose Calcium Total Bilirubin AST ALT Alkaline Phosphatase Troponin I High Sens 10 Total Protein Albumin Globulin Albumin/Globulin Ratio Lipase Urine Color Urine Clarity Urine pH Ur Specific [place] Urine Protein Urine Glucose (UA) Urine Ketones Urine Occult Blood Urine Nitrite Urine Bilirubin Urine Urobilinogen Ur Leukocyte Esterase Urine RBC Urine WBC Ur Squamous Epith Cells Urine Bacteria Urine Mucus POC Glucose 161 H Radiography Diagnostic Testing: Clinical Impression(s) from Imaging Studies Abdomen/Pelvis CT 11/14/21 14:49 IMPRESSION: Fatty infiltration of the liver. Sigmoid diverticulosis. Nonobstructive calculus in the lower pole calyx of the left kidney. Prostatic enlargement. Electronically Signed: Simón Ro MD at 15:43 EST , Brain CT 11/14/21 15:52 IMPRESSION: 1. No acute intracranial abnormality. 2. Stable chronic microvascular changes. Individualized dose optimization techniques were used for this CT. at 1621 Reported and signed by: Gildardo Toth MD Electronically Signed: Gildardo Toth MD at 16:20 EST , Chest X-Ray 11/14/21 18:06 IMPRESSION: No acute cardiopulmonary disease or interval change. Electronically Signed: Charles Butler DO at 18:45 EST , <Dr. Og Sharma MD - Last Filed: 11/14/21 21:27> [facility] MDM Narrative Medical decision making narrative: Zachary-patient was seen by me, he does not feel well, he feels quite ill, initially I saw him when we were on the way to discharge home but he felt quite ill. I then had a troponin and a repeat EKG these are normal. His entire work-up is negative but he tells me there is something wrong inside. Because of this I will observe in the hospital. Lab Data Labs: Laboratory Results - last 24 hr 11/14/21 11/14/21 11/14/21 15:00 15:00 15:00 WBC 7.9 RBC 5.77 Hgb 15.9 Hct 48.5 MCV 84.1 MCH 27.6 MCHC 32.8 RDW Std Deviation 42.1 RDW Coeff of Melanie 13.7 Plt Count 299 MPV 9.7 Immature Gran % (Auto) 0.400 Neut % (Auto) 53.3 Lymph % (Auto) 36.3 [place] % (Auto) 7.6 Eos % (Auto) 2.0 Baso % (Auto) 0.4 Absolute Neuts (auto) 4.2 Absolute Lymphs (auto) 2.88 Nucleated RBC % 0 Sodium 135 L Potassium 4.6 Chloride 104 Carbon Dioxide 27.0 Anion Gap 4 L BUN 16 Creatinine 1.21 Estim Creat Clear Calc 75.48 Est GFR (MDRD) Af Amer 79 Est GFR (MDRD) Non-Af 65 BUN/Creatinine Ratio 13.2 Glucose 324 H Calcium 9.3 Total Bilirubin 0.60 AST 19 ALT 43 Alkaline Phosphatase 120 H Troponin I High Sens Total Protein 7.0 Albumin 3.4 Globulin 3.6 Albumin/Globulin Ratio 0.9 Lipase 103 Urine Color Yellow Urine Clarity Clear Urine pH 5.0 Ur Specific [place] 1.015 Urine Protein Negative Urine Glucose (UA) 1000 H Urine Ketones 5 H Urine Occult Blood Negative Urine Nitrite Negative Urine Bilirubin Negative Urine Urobilinogen Normal Ur Leukocyte Esterase Negative Urine RBC 0 SEEN Urine WBC 0 SEEN Ur Squamous Epith Cells 0 SEEN Urine Bacteria 0 SEEN Urine Mucus 0 SEEN POC Glucose 11/14/21 11/14/21 19:07 20:27 WBC RBC Hgb Hct MCV MCH MCHC RDW Std Deviation RDW Coeff of Melanie Plt Count MPV Immature Gran % (Auto) Neut % (Auto) Lymph % (Auto) [place] % (Auto) Eos % (Auto) Baso % (Auto) Absolute Neuts (auto) Absolute Lymphs (auto) Nucleated RBC % Sodium Potassium Chloride Carbon Dioxide Anion Gap BUN Creatinine Estim Creat Clear Calc Est GFR (MDRD) Af Amer Est GFR (MDRD) Non-Af BUN/Creatinine Ratio Glucose Calcium Total Bilirubin AST ALT Alkaline Phosphatase Troponin I High Sens 10 Total Protein Albumin Globulin Albumin/Globulin Ratio Lipase Urine Color Urine Clarity Urine pH Ur Specific [place] Urine Protein Urine Glucose (UA) Urine Ketones Urine Occult Blood Urine Nitrite Urine Bilirubin Urine Urobilinogen Ur Leukocyte Esterase Urine RBC Urine WBC Ur Squamous Epith Cells Urine Bacteria Urine Mucus POC Glucose 161 H Radiography Diagnostic Testing: Clinical Impression(s) from Imaging Studies Abdomen/Pelvis CT 11/14/21 14:49 IMPRESSION: Fatty infiltration of the liver. Sigmoid diverticulosis. Nonobstructive calculus in the lower pole calyx of the left kidney. Prostatic enlargement. Electronically Signed: Simón Ro MD at 15:43 EST , Brain CT 11/14/21 15:52 IMPRESSION: 1. No acute intracranial abnormality. 2. Stable chronic microvascular changes. Individualized dose optimization techniques were used for this CT. at 1621 Reported and signed by: Gildardo Toth MD Electronically Signed: Gildardo Toth MD at 16:20 EST , Chest X-Ray 11/14/21 18:06 IMPRESSION: No acute cardiopulmonary disease or interval change. Electronically Signed: Charles Butler DO at 18:45 EST , Discharge Plan Triage Chief Complaint: General Illness ED Provider: Og Smith Dx/Rx/DC Orders Clinical Impression: Fatigue, Hyperglycemia Instructions: High Blood Sugar (Hyperglycemia) Prescriptions: No Action citalopram 40 MG tablet 20 mg PO DAILY RF: 0 amlodipine 10 MG tablet 10 mg PO DAILY RF: 0 metformin 500 mg Tablet 2,000 mg PO DAILY RF: 0 buspirone 5 mg tablet 5 mg PO QHS RF: 0 zolpidem 10 mg tablet 10 mg PO QHS PRN (Reason: Insomnia) RF: 0 bupropion HCl 150 mg tablet extended release 24 hr 150 mg PO DAILY RF: 0 Lantus Solostar U-100 Insulin 100 unit/mL (3 mL) insulin pen 25 unit SUBCUT QHS RF: 0 atorvastatin 20 MG tablet 40 mg PO QHS RF: 0 aspirin 81 mg tablet,chewable 1 tab PO DAILY RF: 0 hydrochlorothiazide 25 mg tablet 25 mg PO DAILY RF: 0 tamsulosin 0.4 mg capsule 0.4 mg PO QHS RF: 0 metoprolol tartrate 50 mg tablet 50 mg PO BID RF: 0 Xarelto 20 mg tablet 20 mg PO DINNER RF: 0 insulin lispro [Humalog KwikPen Insulin] 100 unit/mL insulin pen 8 unit SUBCUT TIDCM RF: 0 duloxetine 30 mg capsule,delayed release(DR/EC) 30 mg PO DAILY RF: 0 Stand Alone Forms: ED Work / School Excuse Primary Care Provider: Bella Prince Referrals: Bella Prince, PA [Primary Care Provider] - Activity Restrictions/Additional Instructions: Please monitor your blood sugars more closely, please stay hydrated. You are cleared to perform physical therapy
[2021-11-14] MEDS: 0.9% Normal Saline 1,000 ML 1000 ML IV (15:03)
[2021-11-14] MEDS: Ondansetron 4 MG/2 ML Vial IV (15:03)
[2021-11-14] MEDS: Ketorolac 15 MG/ML Vial IV (15:03)
[2021-11-14 15:06] LABS: Bacteria 0 SEEN /hpf (None Seen); Mucous, Urine 0 SEEN /hpf (<or=2+); Red Blood Cells-Urine 0 SEEN /hpf (0-5); Squamous Epithelial Cells - UA 0 SEEN /hpf (0-5); White Blood Cells 0 SEEN /hpf (0-5)
[2021-11-14 15:14] LABS: Color, Urine Yellow (Yellow); Glucose, Dipstick 1000 mg/dl (Normal); Ketone-Dipstick 5 mg/dl (Negative); Leukocyte Esterase-Dipstick Negative /ul (Negative); Nitrite-Dipstick Negative (Negative); Occult Blood-Urine Negative /ul (Negative); Protein-Dipstick Negative (Negative); Specific Gravity, Urine 1.015 (1.002-1.030); Urine Bilirubin Dipstick Negative (Negative); Urine Clarity Clear (Clear); Urine Urobilinogen Normal (Normal)
[2021-11-14 15:15] LABS: Absolute Lymphocyte Count 2.88 X10^3/uL (0.83-4.51); Absolute Neutrophil Count 4.2 X10^3/uL (2.0-7.7); Basophil# 0.03 X10^3/uL; Basophil% 0.4 % (0-1); Eosinophil# 0.16 X10^3/uL; Hematocrit 48.5 % (40-54); Hemoglobin 15.9 g/dL (13.0-16.5); Lymphocyte # 2.88 X10^3/ul (0.83-4.51); Lymphocyte % 36.3 % (19-41); Mean Corp Hgb Conc 32.8 g/dL (32-36); Mean Corpuscular Hgb 27.6 pg (27.0-32.0); Mean Corpuscular Volume 84.1 fL (80-94); Mean Platelet Vol. 9.7 fl (6.2-12.0); Monocyte% 7.6 % (0-10); NRBC Flagged by Analyzer 0 % (0-5); Neutrophil # 4.24 X10^3/uL (2.7-7.7); Neutrophil % 53.3 % (47-70); Platelet Count 299 K/mm3 (150-450); RBC Distribution Width CV 13.7 % (11.6-14.6); RBC Distribution Width SD 42.1 fl (35.1-43.9); Red Blood Count 5.77 M/mm3 (4.6-6.2); White Blood Count 7.9 K/mm3 (4.4-11.0)
[2021-11-14 15:34] LABS: ALB/GLOB Ratio 0.9 RATIO (0.9-2.4); AST(SGOT) 19 U/L (15-37); Alanine Aminotransfer ALT/SGPT 43 U/L (16-61); Albumin, Serum 3.4 g/dL (3.2-5.0); Alkaline Phosphatase 120 U/L (45-117); Anion Gap 4 (5-15); BUN 16 mg/dL (7-18); BUN/Creat Ratio 13.2 RATIO (10-20); Calcium,Total 9.3 mg/dL (8.5-10.1); Chloride 104 mmol/L (98-107); Creatinine, Serum 1.21 mg/dL (0.70-1.30); EST Glomerular Filtration Rate 65 mL/min (>60); Est Glom Filt Rate - Afr Amer 79 mL/min (>60); Estimated Creatinine Clearance 75.48 ml/min; Globulin 3.6 g/dL (2.2-4.2); Glucose 324 mg/dL (74-106); Lipase 103 U/L (73-393); Potassium 4.6 mmol/L (3.5-5.1); Sodium Level 135 mmol/L (136-145)
--- NOTE | 2021-11-14 15:52 | CT_ITS ---
EXAM: CT HEAD WITHOUT INTRAVENOUS CONTRAST : 1960 CLINICAL INDICATION: vision changes TECHNIQUE: Multiple axial images were obtained of the head without intravenous contrast. This CT exam was performed using one or more of the following dose reduction techniques: automated exposure control, adjustment of the mA and/or kV according to patient size, and/or use of iterative reconstruction technique. This report was created using [employer] report generation technology. COMPARISON: September 04, 2021 FINDINGS: BRAIN AND EXTRA-AXIAL SPACES: There are areas of diminished density within the left frontal white matter, left basal ganglion and mckeon radiata consistent with chronic ischemic change. Brain attenuation is otherwise normal. No intra- or extra-axial hemorrhage. No intracranial mass or mass effect. Posterior fossa structures are unremarkable. Ventricles are appropriate for age. No hydrocephalus. Basal cisterns are patent. BONES/JOINTS: Unremarkable. No discrete lytic or blastic abnormalities. SINUSES: Mild mucosal thickening within the left maxillary sinus again seen. MASTOID AIR CELLS: Unremarkable. Clear. ORBITS: Visualized globes, extraocular muscles, optic nerves and retrobulbar fat appear unremarkable. CT/Brain/Head without Contrast IMPRESSION: 1. No acute intracranial abnormality. 2. Stable chronic microvascular changes. Individualized dose optimization techniques were used for this CT. at 1621 Reported and signed by: Gildardo Toth MD Electronically Signed: Gildardo Toth MD at 16:20 EST ,
--- NOTE | 2021-11-14 18:06 | RAD_ITS ---
STUDY: X-RAY CHEST REASON FOR EXAM: Male, 61 years old. Shortness of breath. Chills and fatigue and lightheadedness and blurry vision for a couple of weeks. TECHNIQUE: Single AP portable view of the chest. COMPARISON: CTA of the chest, 05/09/2021. Chest, 05/09/2021 FINDINGS: There is minimally improved inspiratory effort when compared to prior study. There is no new mass or infiltrate.. There is no demonstrated pleural abnormality. Normal size heart. Normal mediastinum and dain. Normal visualized pulmonary arteries. Normal visualized aortic arch and descending thoracic aorta. No osseous changes. Again seen is anterior fusion of the lower cervical spine. Normal visualized ribs, clavicles, and shoulders. There is no demonstrated abnormality of the visualized soft tissue structures of the upper abdomen. RAD/Chest 1 View (Portable) IMPRESSION: No acute cardiopulmonary disease or interval change. Electronically Signed: Charles Butler DO at 18:45 EST ,
[2021-11-14 19:11] LABS: Bedside Glucose 161 mg/dL (74-106)
--- NOTE | 2021-11-14 19:30 | ED.RN ---
PROVIDED PT W/DC INSTRUCTIONS. OFFERED W/C AND PT REFUSED. WHILE WALKING OUT THE ROOM, PT LEANED UP AGAINST THE WALL. AND MEDIC WAS ABLE TO HOLD HIM UP IN PLACE UNTIL HE COULD BE SEATED IN A W/C AND RETURNED TO HIS ROOM. DR HSAH AND PAULINE DELGADO BOTH MADE AWARE.
--- NOTE | 2021-11-14 20:05 | EKG12_ITS ---
Test Reason : GENERAL ILLNESS Blood Pressure : / mmHG Vent. Rate : 088 BPM Atrial Rate : 088 BPM P-R Int : 150 ms QRS Dur : 102 ms QT Int : 348 ms P-R-T Axes : 040 012 023 degrees QTc Int : 421 ms Normal sinus rhythm Normal ECG Confirmed by SARA SHELBY, IVAN ([id number]), web content editor FIDEL BERMAN ([id number]) on 11/17/2021 10:58:54 AM Referred By: PAULINE Confirmed By:IVAN RUIZ MD
[2021-11-14 20:51] LABS: Troponin-I HS 10 pg/mL (3.0-78.0)
--- NOTE | 2021-11-14 21:47 | HP.PCM.HOS_ITS ---
HPI - General HPI Narrative ASHWINI HAYES, is a 61 M who presents to the hospital with generalized illness. He states he has been feeling unwell for 2 weeks but he cannot clarify as to what exactly was wrong. He just feels sick. He has some intermittent sharp pain in his right lower quadrant, CT of the abdomen was unremarkable here in the ER. Vital signs are all normal lab work was unremarkable except for slightly elevated glucose of 324. He states that he normally sits around 150 units blood sugars but occasionally has gone up to 600 without feeling this bad. He states that this started about 2 weeks ago and it was worse last Wednesday when he wanted to give it time to go away he never saw his PCP. Since it has not gone away by then as when he came into the hospital today. Initially the ER was can try to send him home however when they got him up he seemed weak and at 1 point had to lean against the wall to be stabilized and it took 2 people to try to help him back in the bed. 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 [facility], [facility] Medical History Anxiety and depression Benign essential hypertension BPH (benign prostatic hyperplasia) COVID-19 long hauler Diabetes Diabetes mellitus type 2 in obese Grade II diastolic dysfunction Hyperlipidemia Iron deficiency anemia Pulmonary embolism TIA (transient ischemic attack) Medical History unable to obtain Home Medications citalopram 20 mg PO DAILY 07/05/16 [History Last Taken 05/08/21] amlodipine 10 mg PO DAILY 12/29/17 [History Last Taken 05/08/21] metformin 2,000 mg PO DAILY 01/20/21 [History Last Taken 05/08/21] Lantus Solostar U-100 Insulin 25 unit SUBCUT QHS 04/15/21 [History Last Taken 05/08/21] atorvastatin 40 mg PO QHS 04/15/21 [History Last Taken 05/08/21] bupropion HCl 150 mg PO DAILY 04/15/21 [History Last Taken 05/08/21] buspirone 5 mg PO QHS 04/15/21 [History Last Taken 05/08/21] zolpidem 10 mg PO QHS PRN 04/15/21 [History Last Taken 05/08/21] Xarelto 20 mg PO DINNER 09/05/21 [History Last Taken Unknown] aspirin 1 tab PO DAILY 09/05/21 [History Last Taken Unknown] duloxetine 30 mg PO DAILY 09/05/21 [History Last Taken Unknown] hydrochlorothiazide 25 mg PO DAILY 09/05/21 [History Last Taken Unknown] insulin lispro [Humalog KwikPen Insulin] 8 unit SUBCUT TIDCM 09/05/21 [History Last Taken Unknown] metoprolol tartrate 50 mg PO BID 09/05/21 [History Last Taken Unknown] tamsulosin 0.4 mg PO QHS 09/05/21 [History Last Taken Unknown] Allergy/AdvReac Type Severity Reaction Status Date / Time Iodinated Contrast Media [CT] Allergy Rash Verified 05/09/21 10:41 iohexol [From Omnipaque] Allergy Rash Verified 05/09/21 10:41 Family History Mother Brain aneurysm age 65 with ruptured aneurysm. Father Diabetes Surgical History History of appendectomy History of back surgery History of knee joint replacement History of tonsillectomy Surgical History unable to obtain Social History household members: spouse Smoking Status: Never smoker alcohol intake: never substance use type: does not use ROS Constitutional Constitutional: Reports malaise; Denies chills, fatigue or fever(s) Eyes Eyes: Denies blurry vision ENT HEENT: Denies headache(s) or nasal discharge Cardiovascular Cardiovascular: Denies chest pain, dyspnea on exertion or syncope Respiratory/Chest Respiratory/Chest: Denies cough, shortness of breath at rest or shortness of breath with exertion Gastrointestinal Gastrointestinal: Denies constipation, diarrhea, nausea or vomiting Genitourinary Genitourinary: Denies dysuria Neurologic Neurologic: Denies focal weakness, numbness or tremor(s) Psychiatric Psychiatric: Denies anxiety or depression Vital Signs Vital Signs Vital Signs: 11/14/21 14:25 11/14/21 15:04 11/14/21 18:46 Temperature 98.4 F 98.4 F Temperature Source Temporal Temporal Pulse Rate 93 93 95 Respiratory Rate 16 16 Respiratory Effort Normal Non-Labored Respiratory Pattern Normal Blood Pressure 178/101 H 178/101 H 158/86 H Blood Pressure Mean 126 126 110 Pulse Ox 95 95 Oxygen Delivery Method Room Air Room Air Room Air 11/14/21 19:34 11/14/21 20:51 Temperature Temperature Source Pulse Rate 74 Respiratory Rate 18 Respiratory Effort Respiratory Pattern Blood Pressure 168/87 H 161/83 H Blood Pressure Mean 109 Pulse Ox 97 Oxygen Delivery Method Weight Weight: 260 lb Body Mass Index (BMI) 33.3 Physical Exam Const alert, oriented x3 and no apparent distress General Appearance: cooperative HEENT normocephalic and moist oral mucous membranes Eyes PERRL, EOMs intact bilaterally and conjunctivae normal Neck supple and no JVD Resp normal respiratory effort, no retractions, no use of accessory muscles and clear to auscultation bilaterally Auscultation: Negative for crackles, rales, rhonchi or wheezes Cardio regular rate, regular rhythm, S1 normal heart sound, S2 normal heart sound and no murmurs GI soft to palpation, non-tender and non-distended; Negative for hepatosplenomegaly Extremity no clubbing, cyanosis or edema Skin no rashes or lesions noted Neuro no focal motor deficits and no sensory deficits noted Psych affect normal Appearance: appropriate Results Lab / Micro Data Result Diagrams: 11/14/21 15:00 11/14/21 15:00 Labs: Laboratory Results - last 24 hr 11/14/21 15:00: WBC 7.9, RBC 5.77, Hgb 15.9, Hct 48.5, MCV 84.1, MCH 27.6, MCHC 32.8, RDW Std Deviation 42.1, RDW Coeff of Melanie 13.7, Plt Count 299, MPV 9.7, Immature Gran % (Auto) 0.400, Neut % (Auto) 53.3, Lymph % (Auto) 36.3, [place] % (Auto) 7.6, Eos % (Auto) 2.0, Baso % (Auto) 0.4, Absolute Neuts (auto) 4.2, Absolute Lymphs (auto) 2.88, Nucleated RBC % 0 11/14/21 15:00: Sodium 135 L, Potassium 4.6, Chloride 104, Carbon Dioxide 27.0, Anion Gap 4 L, BUN 16, Creatinine 1.21, Estim Creat Clear Calc 75.48, Est GFR (MDRD) Af Amer 79, Est GFR (MDRD) Non-Af 65, BUN/Creatinine Ratio 13.2, Glucose 324 H, Calcium 9.3, Total Bilirubin 0.60, AST 19, ALT 43, Alkaline Phosphatase 120 H, Total Protein 7.0, Albumin 3.4, Globulin 3.6, Albumin/Globulin Ratio 0.9, Lipase 103 11/14/21 15:00: Urine Color Yellow, Urine Clarity Clear, Urine pH 5.0, Ur Specific [place] 1.015, Urine Protein Negative, Urine Glucose (UA) 1000 H, Urine Ketones 5 H, Urine Occult Blood Negative, Urine Nitrite Negative, Urine Bilirubin Negative, Urine Urobilinogen Normal, Ur Leukocyte Esterase Negative, Urine RBC 0 SEEN, Urine WBC 0 SEEN, Ur Squamous Epith Cells 0 SEEN, Urine Bacteria 0 SEEN, Urine Mucus 0 SEEN 11/14/21 19:07: POC Glucose 161 H 11/14/21 20:27: Troponin I High Sens 10 Micro: Microbiology 11/14/21 20:35 Nasal Secretion SARS-CoV-2 Antigen (Rapid) - Final Radiology Impression Abdomen/Pelvis CT 11/14/21 14:49 IMPRESSION: Fatty infiltration of the liver. Sigmoid diverticulosis. Nonobstructive calculus in the lower pole calyx of the left kidney. Prostatic enlargement. Electronically Signed: Simón Ro MD at 15:43 EST , Brain CT 11/14/21 15:52 IMPRESSION: 1. No acute intracranial abnormality. 2. Stable chronic microvascular changes. Individualized dose optimization techniques were used for this CT. at 1621 Reported and signed by: Gildardo Toth MD Electronically Signed: Gildardo Toth MD at 16:20 EST , Chest X-Ray 11/14/21 18:06 IMPRESSION: No acute cardiopulmonary disease or interval change. Electronically Signed: Charles Butler DO at 18:45 EST Reading Location ID and State: [address] [place] [address] Tel [phone], Service support , Assessment & Plan Assessment/Plan (1) Fatigue: PLAN: 1. Fatigue and feeling unwell ?Could be long-term Covid he is on Xarelto for post COVID PE ?We will monitor his blood sugars and start insulin IV fluids ?PT/OT for evaluation, case management for discharge planning 2. HTN/HLD ?Blood pressure stable, continue with his home Norvasc chlorothiazide ?Continue with statin and aspirin ?continue with metoprolol 3. DM2 ?Blood sugar is elevated at 354, continue with Lantus and his home mealtime insulin ?Accu-Cheks AC at bedtime with sliding scale insulin ?Continue with IV fluids, will make adjustments to see ?Hold his Metformin 4. Anxiety/depression/insomnia ?Stable ?Continue with all of his home medications 5. BPH ?Stable ?Continue with Flomax DVT: Xarelto Charges/Coding Visit Charges OBSV E&M: 89600 Initial observation care L2
[2021-11-14 23:25] LABS: Bedside Glucose 137 mg/dL (74-106)
[2021-11-14] MEDS: Acetaminophen 325 MG Tablet 650 MG PO (23:35)
[2021-11-15] VITALS (7 sets, daily range): BP systolic 130–156; BP diastolic 85–98; PULSE 68–83; RESP 14–18; TEMP 36.4–37; O2SAT 95–97
[2021-11-15] MEDS: Zolpidem Tartrate 5 MG Tablet PO ×2 (01:12→21:02)
[2021-11-15] MEDS: busPIRone 5 MG Tablet PO ×2 (01:13→20:58)
[2021-11-15] MEDS: 0.9% Saline Lock 10 ML Syringe IV (01:13)
[2021-11-15] MEDS: Metoprolol Tartrate 50 MG Tablet PO ×3 (01:13→20:58)
[2021-11-15] MEDS: Atorvastatin Calcium 40 MG Tablet PO ×2 (01:13→20:58)
[2021-11-15] MEDS: Tamsulosin HCl 0.4 MG Capsule PO ×2 (01:13→20:58)
[2021-11-15] MEDS: 0.9% Normal Saline 1,000 ML 100 ML IV ×3 (01:14→21:05)
[2021-11-15] MEDS: Ondansetron 4 MG/2 ML Vial IV ×3 (03:26→21:02)
[2021-11-15 05:31] LABS: Absolute Lymphocyte Count 3.32 X10^3/uL (0.83-4.51); Absolute Neutrophil Count 4.3 X10^3/uL (2.0-7.7); Basophil# 0.03 X10^3/uL; Basophil% 0.4 % (0-1); Eosinophil# 0.17 X10^3/uL; Hematocrit 42.9 % (40-54); Hemoglobin 13.8 g/dL (13.0-16.5); Lymphocyte # 3.32 X10^3/ul (0.83-4.51); Lymphocyte % 39.1 % (19-41); Mean Corp Hgb Conc 32.2 g/dL (32-36); Mean Corpuscular Hgb 27.3 pg (27.0-32.0); Mean Platelet Vol. 9.6 fl (6.2-12.0); Monocyte# 0.62 X10^3/uL; Monocyte% 7.3 % (0-10); NRBC Flagged by Analyzer 0 % (0-5); Neutrophil # 4.32 X10^3/uL (2.7-7.7); Neutrophil % 50.7 % (47-70); Platelet Count 267 K/mm3 (150-450); RBC Distribution Width CV 13.9 % (11.6-14.6); RBC Distribution Width SD 42.9 fl (35.1-43.9); Red Blood Count 5.05 M/mm3 (4.6-6.2); White Blood Count 8.5 K/mm3 (4.4-11.0)
[2021-11-15 05:57] LABS: Anion Gap 6 (5-15); BUN 18 mg/dL (7-18); BUN/Creat Ratio 19.8 RATIO (10-20); Calcium,Total 7.9 mg/dL (8.5-10.1); Chloride 105 mmol/L (98-107); Creatinine, Serum 0.91 mg/dL (0.70-1.30); EST Glomerular Filtration Rate 90 mL/min (>60); Est Glom Filt Rate - Afr Amer 109 mL/min (>60); Estimated Creatinine Clearance 100.37 ml/min; Glucose 216 mg/dL (74-106); Potassium 3.9 mmol/L (3.5-5.1); Sodium Level 137 mmol/L (136-145)
[2021-11-15 08:36] LABS: Bedside Glucose 174 mg/dL (74-106)
[2021-11-15] MEDS: hydroCHLOROthiazide 25 MG Tablet PO (09:09)
[2021-11-15] MEDS: DULoxetine Hcl 30 MG Capsule PO (09:09)
[2021-11-15] MEDS: Aspirin 81 MG TAB.CHEW PO (09:10)
[2021-11-15] MEDS: buPROPion (XL) 150 MG TABLET.XL PO (09:10)
[2021-11-15] MEDS: Acetaminophen 325 MG Tablet 650 MG PO ×2 (09:10→21:02)
[2021-11-15] MEDS: amLODIPine 10 MG Tablet PO (09:11)
[2021-11-15] MEDS: Insulin Lispro 100 UNIT/ML INSULN.PEN 8 UNIT SC ×3 (09:11→17:21)
[2021-11-15] MEDS: Insulin Lispro 100 UNIT/ML INSULN.PEN SC ×4 (09:12→21:12)
--- NOTE | 2021-11-15 10:37 | EKG12_ITS ---
Test Reason : DIZZINESS Blood Pressure : / mmHG Vent. Rate : 069 BPM Atrial Rate : 069 BPM P-R Int : 162 ms QRS Dur : 104 ms QT Int : 378 ms P-R-T Axes : 018 014 031 degrees QTc Int : 405 ms Normal sinus rhythm Normal ECG When compared with ECG of 14-NOV-2021 20:15, MANUAL COMPARISON REQUIRED, DATA IS UNCONFIRMED Confirmed by SARA SHELBY, IVAN ([id number]), slot editor FIDEL BERMAN ([id number]) on 11/17/2021 2:27:07 PM Referred By: OSMAR Confirmed By:IVAN RUIZ MD
--- NOTE | 2021-11-15 10:48 | PCM.PN.HOSP ---
Subjective Subjective Follow-up on debility: Patient was seen and examined. He complains of feeling dizzy and generally weak ongoing for 2 weeks. Denied any fever chills or shortness of breath. Orthostatic vitals has been negative. EKG shows NSR, no acute ST-T changes. QTc 405. Objective Data Objective Data Vital Signs: Vital Signs Temp Pulse Resp BP Pulse Ox 98.4 F 70 16 136/90 H 97 11/15/21 08:56 11/15/21 10:38 11/15/21 08:56 11/15/21 10:38 11/15/21 08:56 Oxygen Delivery Method Room Air Weight: 118.026 kg Body Mass Index (BMI) 33.4 Intake & Output: Intake and Output for Last 24 Hours 11/13/21 11/14/21 11/15/21 23:59 23:59 23:59 Intake Total 1000 / 1888 888 / 888 Balance 1000 / 1888 888 / 888 Lab / Micro Data Result Diagrams: 11/15/21 04:24 11/15/21 04:24 Labs: Laboratory Results - last 24 hr 11/14/21 15:00: WBC 7.9, RBC 5.77, Hgb 15.9, Hct 48.5, MCV 84.1, MCH 27.6, MCHC 32.8, RDW Std Deviation 42.1, RDW Coeff of Melanie 13.7, Plt Count 299, MPV 9.7, Immature Gran % (Auto) 0.400, Neut % (Auto) 53.3, Lymph % (Auto) 36.3, [place] % (Auto) 7.6, Eos % (Auto) 2.0, Baso % (Auto) 0.4, Absolute Neuts (auto) 4.2, Absolute Lymphs (auto) 2.88, Nucleated RBC % 0 11/14/21 15:00: Sodium 135 L, Potassium 4.6, Chloride 104, Carbon Dioxide 27.0, Anion Gap 4 L, BUN 16, Creatinine 1.21, Estim Creat Clear Calc 75.48, Est GFR (MDRD) Af Amer 79, Est GFR (MDRD) Non-Af 65, BUN/Creatinine Ratio 13.2, Glucose 324 H, Calcium 9.3, Total Bilirubin 0.60, AST 19, ALT 43, Alkaline Phosphatase 120 H, Total Protein 7.0, Albumin 3.4, Globulin 3.6, Albumin/Globulin Ratio 0.9, Lipase 103 11/14/21 15:00: Urine Color Yellow, Urine Clarity Clear, Urine pH 5.0, Ur Specific [place] 1.015, Urine Protein Negative, Urine Glucose (UA) 1000 H, Urine Ketones 5 H, Urine Occult Blood Negative, Urine Nitrite Negative, Urine Bilirubin Negative, Urine Urobilinogen Normal, Ur Leukocyte Esterase Negative, Urine RBC 0 SEEN, Urine WBC 0 SEEN, Ur Squamous Epith Cells 0 SEEN, Urine Bacteria 0 SEEN, Urine Mucus 0 SEEN 11/14/21 19:07: POC Glucose 161 H 11/14/21 20:27: Troponin I High Sens 10 11/14/21 23:20: POC Glucose 137 H 11/15/21 04:24: WBC 8.5, RBC 5.05, Hgb 13.8, Hct 42.9, MCV 85.0, MCH 27.3, MCHC 32.2, RDW Std Deviation 42.9, RDW Coeff of Melanie 13.9, Plt Count 267, MPV 9.6, Immature Gran % (Auto) 0.500, Neut % (Auto) 50.7, Lymph % (Auto) 39.1, [place] % (Auto) 7.3, Eos % (Auto) 2.0, Baso % (Auto) 0.4, Absolute Neuts (auto) 4.3, Absolute Lymphs (auto) 3.32, Nucleated RBC % 0 11/15/21 04:24: Sodium 137, Potassium 3.9, Chloride 105, Carbon Dioxide 26.0, Anion Gap 6, BUN 18, Creatinine 0.91, Estim Creat Clear Calc 100.37, Est GFR (MDRD) Af Amer 109, Est GFR (MDRD) Non-Af 90, BUN/Creatinine Ratio 19.8, Glucose 216 H, Calcium 7.9 L 11/15/21 08:32: POC Glucose 174 H Micro: Microbiology 11/14/21 20:35 Nasal Secretion SARS-CoV-2 Antigen (Rapid) - Final Radiography Diagnostic Testing: Radiology Impression Abdomen/Pelvis CT 11/14/21 14:49 IMPRESSION: Fatty infiltration of the liver. Sigmoid diverticulosis. Nonobstructive calculus in the lower pole calyx of the left kidney. Prostatic enlargement. Electronically Signed: Simón Ro MD at 15:43 EST , Brain CT 11/14/21 15:52 IMPRESSION: 1. No acute intracranial abnormality. 2. Stable chronic microvascular changes. Individualized dose optimization techniques were used for this CT. at 1621 Reported and signed by: Gildardo Toth MD Electronically Signed: Gildardo Toth MD at 16:20 EST , Chest X-Ray 11/14/21 18:06 IMPRESSION: No acute cardiopulmonary disease or interval change. Electronically Signed: Charles Butler DO at 18:45 EST , Physical Exam Narrative Physical exam: General: Alert, Oriented x3, Cooperative, No apparent distress, Well developed, morbidly obese HEENT: Atraumatic Oral: Moist Mucosa Neck: Supple Lungs: Clear to auscultation Cardiovascular: HS I+II, regular, no murmurs Abdomen: Bowel Sounds Present, Soft, Non Tender Extremities: No edema Skin: No rashes, No breakdown Neurological: Grossly intact Psych/Mental Status: Appropriate Assessment & Plan Assessment/Plan (1) Fatigue: QUALIFIERS: Fatigue type: unspecified Qualified Code(s): R53.83 - Other fatigue PLAN: 1. Fatigue, dizziness, unclear etiology, Orthostatic vitals are negative, EKG shows no acute ST-T changes, admitting blood work is unremarkable History of Covid a while ago We will check TSH, follow-up on PT/OT recommendations MRI of the brain shows involutional changes of the brain. No acute infarcts. Review of the chart shows that patient has had this for a while and has been following with PT and OT for vestibular rehab. Continue with aspirin and statin. 2. Hypertension, controlled, continue on hydrochlorothiazide, amlodipine, metoprolol 3. Hyperlipidemia, continue statin 4. DM2, blood sugars are better controlled Continue to hold Metformin, continue with IV fluids and insulin sliding scale 5. Anxiety/depression/insomnia, appears stable Continue with bupropion, Cymbalta 6. BPH, stable, continue on Flomax 7. H/o DVT, on Xarelto Charges/Coding Visit Charges Inpatient E&M: 50450 Subs Hosp L2
[2021-11-15 11:45] LABS: Bedside Glucose 215 mg/dL (74-106)
[2021-11-15 13:50] LABS: Thyroid Stim Hormone (TSH) 1.45 uIU/mL (0.358-3.74)
--- NOTE | 2021-11-15 14:00 | CASEMGMT ---
TANYA DE SANTIAGO Assessment: Face to Face with pt for initial transition planning/care coordination assessment. TANYA DE SANTIAGO introduced self and role at [facility], pt voices understanding and consents to assessment. Pt is A/O x4 and answers all questions appropriately at this time. Pt sitting up in chair on RA in no distress. Care providers, pharmacy, and demographics verified/updated. Admitting Dx: unwell PCP:PAULINE Smith Specialists:Pt denies having any specialists. [facility]erred [facility]acy: [facility] Insurance: [employer] Prescription Benefit: yes LW/HPOA: Pt has a LW/DPOA on file at [facility]. His DPOA is his sister Kimi Larios. LNOK: Kimi Larios, sister; Shana Guerrero, Living Arrangements: Pt lives with and son in a two story house with two steps to enter with a rail. Pt reports he is I in ADL's. Transportation: Pt drives self and denies concerns with transportation. DME/HHC/SNF: Pt has a cane and walker at home. Pt was using a cane up to 3 weeks ago. Pt has had HHC in the past, he thinks it is from [facility]. Pt has been in [facility] in the past. Pt has been going to [facility] for physical therapy. Pt states he had to cancel one week d/t being ill and one week as his disability had lapsed. He switched from s/t disability to l/t disability and that is all sorted through now. Pt would like to continue with therapy at [facility] unless it is recommended for pt to do otherwise. Pt currently is SBA and states therapy has not evaluated him yet. Pt states no further concerns/needs. CM to follow. Advised pt to ask CM if any further question/concerns/needs arise, voices understanding. Pt Goal: Home with resumption of outpt therapy. Plan: Home with resumption of outpt therapy unless pt can not tolerate and needs HHC therapy.
[2021-11-15 16:56] LABS: Bedside Glucose 185 mg/dL (74-106)
[2021-11-15] MEDS: Rivaroxaban 20 MG Tablet PO (17:21)
[2021-11-15] MEDS: Glucerna Shake 120 ML LIQUID PO (17:21)
[2021-11-15 21:36] LABS: Bedside Glucose 200 mg/dL (74-106)
[2021-11-16 02:52] VITALS: BP 147/89; PULSE 64; RESP 18; TEMP 36.5; O2SAT 96
[2021-11-16 06:00] LABS: Absolute Lymphocyte Count 3.31 X10^3/uL (0.83-4.51); Absolute Neutrophil Count 4.4 X10^3/uL (2.0-7.7); Basophil# 0.03 X10^3/uL; Basophil% 0.3 % (0-1); Eosinophil# 0.24 X10^3/uL; Eosinophils% 2.8 % (0-5); Hematocrit 45.5 % (40-54); Lymphocyte # 3.31 X10^3/ul (0.83-4.51); Lymphocyte % 38.3 % (19-41); Mean Corpuscular Hgb 28.1 pg (27.0-32.0); Mean Corpuscular Volume 85.4 fL (80-94); Mean Platelet Vol. 9.5 fl (6.2-12.0); Monocyte# 0.62 X10^3/uL; Monocyte% 7.2 % (0-10); NRBC Flagged by Analyzer 0 % (0-5); Neutrophil # 4.41 X10^3/uL (2.7-7.7); Neutrophil % 50.9 % (47-70); Platelet Count 283 K/mm3 (150-450); RBC Distribution Width CV 13.4 % (11.6-14.6); RBC Distribution Width SD 41.1 fl (35.1-43.9); Red Blood Count 5.33 M/mm3 (4.6-6.2); White Blood Count 8.7 K/mm3 (4.4-11.0)
[2021-11-16 06:29] LABS: ALB/GLOB Ratio 0.9 RATIO (0.9-2.4); AST(SGOT) 19 U/L (15-37); Alanine Aminotransfer ALT/SGPT 41 U/L (16-61); Albumin, Serum 3.1 g/dL (3.2-5.0); Alkaline Phosphatase 96 U/L (45-117); Anion Gap 4 (5-15); BUN 15 mg/dL (7-18); Chloride 102 mmol/L (98-107); Creatinine, Serum 0.88 mg/dL (0.70-1.30); EST Glomerular Filtration Rate 94 mL/min (>60); Est Glom Filt Rate - Afr Amer 113 mL/min (>60); Estimated Creatinine Clearance 103.79 ml/min; Globulin 3.3 g/dL (2.2-4.2); Glucose 216 mg/dL (74-106); Potassium 3.9 mmol/L (3.5-5.1); Protein, Total 6.4 g/dL (6.4-8.2); Sodium Level 133 mmol/L (136-145)
[2021-11-16] MEDS: 0.9% Normal Saline 1,000 ML 100 ML IV (06:33)
[2021-11-16] MEDS: Insulin Lispro 100 UNIT/ML INSULN.PEN 8 UNIT SC ×2 (07:40→12:31)
[2021-11-16] MEDS: Insulin Lispro 100 UNIT/ML INSULN.PEN SC ×2 (07:42→12:32)
[2021-11-16] MEDS: Aspirin 81 MG TAB.CHEW PO (07:42)
[2021-11-16 07:51] LABS: Bedside Glucose 178 mg/dL (74-106)
[2021-11-16 08:37] VITALS: BP 128/84; PULSE 70; RESP 18; TEMP 36.4; O2SAT 97
[2021-11-16 08:52] VITALS: BP 128/84; PULSE 70
[2021-11-16] MEDS: buPROPion (XL) 150 MG TABLET.XL PO (08:52)
[2021-11-16] MEDS: Metoprolol Tartrate 50 MG Tablet PO (08:52)
[2021-11-16] MEDS: DULoxetine Hcl 30 MG Capsule PO (08:52)
[2021-11-16] MEDS: hydroCHLOROthiazide 25 MG Tablet PO (08:53)
[2021-11-16] MEDS: amLODIPine 10 MG Tablet PO (08:53)
[2021-11-16] MEDS: Acetaminophen 325 MG Tablet 650 MG PO (11:05)
[2021-11-16 11:21] LABS: Bedside Glucose 175 mg/dL (74-106)
--- NOTE | 2021-11-16 12:22 | PCM.DC ---
Discharge Instructions Diet Discharge Diet: Low fat / Low cholesterol, 2000 Calorie Control Diet and 2000 mg Sodium Diet Activity Discharge Activity: Return to Normal Activity Follow Up Care Test Results: Test results from this visit will be discussed in further detail at your follow-up appointment, if applicable. Discharge Plan Admission Admit Date/Time: 11/14/21 21:42 Primary Reason for Your Visit: Debility Attending Provider: Evonne Bazan Primary Care Provider: Bella Prince Instructions Additional Instructions / Restrictions: Continue to keep yourself hydrated, monitor your blood sugars more closely. Follow-up with outpatient therapy Discharge Orders/Prescriptions Prescriptions: Continued amlodipine 10 MG tablet 10 mg PO DAILY RF: 0 metformin 500 mg Tablet 2,000 mg PO DAILY RF: 0 buspirone 5 mg tablet 5 mg PO QHS RF: 0 zolpidem 10 mg tablet 10 mg PO QHS PRN (Reason: Insomnia) RF: 0 bupropion HCl 150 mg tablet extended release 24 hr 150 mg PO DAILY RF: 0 Lantus Solostar U-100 Insulin 100 unit/mL (3 mL) insulin pen 32 unit SUBCUT QHS RF: 0 atorvastatin 20 MG tablet 40 mg PO QHS RF: 0 aspirin 81 mg tablet,chewable 1 tab PO DAILY RF: 0 hydrochlorothiazide 25 mg tablet 25 mg PO DAILY RF: 0 tamsulosin 0.4 mg capsule 0.4 mg PO QHS RF: 0 metoprolol tartrate 50 mg tablet 50 mg PO BID RF: 0 Xarelto 20 mg tablet 20 mg PO DINNER RF: 0 insulin lispro [Humalog KwikPen Insulin] 100 unit/mL insulin pen 12 unit SUBCUT TIDCM RF: 0 duloxetine 30 mg capsule,delayed release(DR/EC) 30 mg PO DAILY RF: 0 Referrals / Follow Up: Bella Prince, PA [Primary Care Provider] - Within 2 Weeks Disposition Disposition (needs filled in before D/C Order can be placed): Home, Self Care
--- NOTE | 2021-11-16 12:28 | DS.PCM_ITS ---
Providers Date of Admission: 11/14/21 Date of Discharge: 11/16/21 Primary Care Physician: PAULINE Giordano Reason For Visit: UNWELL Diagnosis Discharge Diagnosis (1) Fatigue: Status: Acute Code(s): R53.83 - Other fatigue Qualifiers: Fatigue type: unspecified Qualified Code(s): R53.83 - Other fatigue Medications at Discharge Home Medications amlodipine 10 mg PO DAILY 12/29/17 metformin 2,000 mg PO DAILY 01/20/21 Lantus Solostar U-100 Insulin 32 unit SUBCUT QHS 04/15/21 atorvastatin 40 mg PO QHS 04/15/21 bupropion HCl 150 mg PO DAILY 04/15/21 buspirone 5 mg PO QHS 04/15/21 zolpidem 10 mg PO QHS PRN 04/15/21 Xarelto 20 mg PO DINNER 09/05/21 aspirin 1 tab PO DAILY 09/05/21 duloxetine 30 mg PO DAILY 09/05/21 hydrochlorothiazide 25 mg PO DAILY 09/05/21 insulin lispro [Humalog KwikPen Insulin] 12 unit SUBCUT TIDCM 09/05/21 metoprolol tartrate 50 mg PO BID 09/05/21 tamsulosin 0.4 mg PO QHS 09/05/21 Hospital Course Operations None Procedures None Summary of Care Provided Minutes Spent on Discharge: 40 Hospital Course: 61-year-old male with multiple comorbidities, who comes in with progressive weakness and dizziness ongoing for some time. Patient had been following up in the outpatient with physical therapy, undergoing vestibular treatment. He comes in with progressive feeling of unwell, unable to specify. Stated that he feels dizzy and fatigued. He also complains of right lower quadrant/groin pain denied any fever chills or cough or chest pain or palpitations. His work-up including EKG, chest x-ray, brain CT, abdomen/pelvic CT has been unremarkable. Patient's orthostatic vitals were negative. He was continued on IV fluids. He was seen by PT and OT and recommendations were made for outpatient therapy. Patient continued to remain stable during this hospital stay. He needs to follow-up with his primary care doctor within 1 to 2 weeks. Physical Exam Narrative Physical exam: General: Alert, Oriented x3, Cooperative, No apparent distress, Well developed, morbidly obese HEENT: Atraumatic Oral: Moist Mucosa Neck: Supple Lungs: Clear to auscultation Cardiovascular: HS I+II, regular, no murmurs Abdomen: Bowel Sounds Present, Soft, Non Tender Extremities: No edema Skin: No rashes, No breakdown Neurological: Grossly intact Psych/Mental Status: Appropriate Weight / BMI Weight Weight: 118.026 kg Body Mass Index (BMI) 33.4 ABG / Lab / Microbiology Data Result Diagrams: 11/16/21 05:20 11/16/21 05:20 Laboratory: Laboratory Results - last 24 hr 11/15/21 04:24: TSH 1.45 11/15/21 16:48: POC Glucose 185 H 11/15/21 20:54: POC Glucose 200 H 11/16/21 05:20: WBC 8.7, RBC 5.33, Hgb 15.0, Hct 45.5, MCV 85.4, MCH 28.1, MCHC 33.0, RDW Std Deviation 41.1, RDW Coeff of Melanie 13.4, Plt Count 283, MPV 9.5, Immature Gran % (Auto) 0.500, Neut % (Auto) 50.9, Lymph % (Auto) 38.3, [place] % (Auto) 7.2, Eos % (Auto) 2.8, Baso % (Auto) 0.3, Absolute Neuts (auto) 4.4, Absolute Lymphs (auto) 3.31, Nucleated RBC % 0 11/16/21 05:20: Sodium 133 L, Potassium 3.9, Chloride 102, Carbon Dioxide 27.0, Anion Gap 4 L, BUN 15, Creatinine 0.88, Estim Creat Clear Calc 103.79, Est GFR (MDRD) Af Amer 113, Est GFR (MDRD) Non-Af 94, BUN/Creatinine Ratio 17.0, Glucose 216 H, Calcium 8.0 L, Total Bilirubin 0.80, AST 19, ALT 41, Alkaline Phosphatase 96, Total Protein 6.4, Albumin 3.1 L, Globulin 3.3, Albumin/Globulin Ratio 0.9 11/16/21 07:37: POC Glucose 178 H 11/16/21 11:12: POC Glucose 175 H Microbiology: Microbiology 11/14/21 20:35 Nasal Secretion SARS-CoV-2 Antigen (Rapid) - Final D/C Instructions Discharge Diet: Low fat / Low cholesterol, 2000 Calorie Control Diet and 2000 mg Sodium Diet Meaningful Use Info Meaningful Use Diagnoses (Choose all that apply): None applicable Discharge Plan Admission Admit Date/Time: 11/14/21 21:42 Primary Reason for Your Visit: Debility Attending Provider: Evonne Bazan Primary Care Provider: Bella Prince Instructions Additional Instructions / Restrictions: Continue to keep yourself hydrated, monitor your blood sugars more closely. Follow-up with outpatient therapy Discharge Orders/Prescriptions Prescriptions: Continued amlodipine 10 MG tablet 10 mg PO DAILY RF: 0 metformin 500 mg Tablet 2,000 mg PO DAILY RF: 0 buspirone 5 mg tablet 5 mg PO QHS RF: 0 zolpidem 10 mg tablet 10 mg PO QHS PRN (Reason: Insomnia) RF: 0 bupropion HCl 150 mg tablet extended release 24 hr 150 mg PO DAILY RF: 0 Lantus Solostar U-100 Insulin 100 unit/mL (3 mL) insulin pen 32 unit SUBCUT QHS RF: 0 atorvastatin 20 MG tablet 40 mg PO QHS RF: 0 aspirin 81 mg tablet,chewable 1 tab PO DAILY RF: 0 hydrochlorothiazide 25 mg tablet 25 mg PO DAILY RF: 0 tamsulosin 0.4 mg capsule 0.4 mg PO QHS RF: 0 metoprolol tartrate 50 mg tablet 50 mg PO BID RF: 0 Xarelto 20 mg tablet 20 mg PO DINNER RF: 0 insulin lispro [Humalog KwikPen Insulin] 100 unit/mL insulin pen 12 unit SUBCUT TIDCM RF: 0 duloxetine 30 mg capsule,delayed release(DR/EC) 30 mg PO DAILY RF: 0 Referrals / Follow Up: Bella Prince PA [Primary Care Provider] - Within 2 Weeks Disposition Disposition (needs filled in before D/C Order can be placed): Home, Self Care Charges/Coding Visit Charges Inpatient E&M: 59438 Disch Hosp
[2021-11-16 13:43] VITALS: BP 142/79; PULSE 72; RESP 16; TEMP 36.4; O2SAT 96
[2021-11-17 07:54] LABS: Vitamin B12 344 pg/mL (211-911)
== END 2021-11-16 14:10 | disposition home or self-care (01) ==
LOC: ED 19:11 → MS3 21:51
PROVIDERS: Emergency Medicine; Admitting Provider Family Medicine; Emergency Provider Nurse Practitioner; PCP Physician Assistant; Visit Provider Internal Medicine
DX: E11.65 Type 2 diabetes mellitus with hyperglycemia (principal); Z79.4 Long term (current) use of insulin; R42 Dizziness and giddiness; E78.5 Hyperlipidemia, unspecified; I10 Essential (primary) hypertension; R53.1 Weakness; U09.9 Post COVID-19 condition, unspecified; F32.A Depression, unspecified; R53.83 Other fatigue; F41.9 Anxiety disorder, unspecified; N40.0 Benign prostatic hyperplasia without lower urinary tract symptoms; Z79.01 Long term (current) use of anticoagulants; Z79.899 Other long term (current) drug therapy; Z79.82 Long term (current) use of aspirin; Z86.718 Personal history of other venous thrombosis and embolism
CPT/HCPCS: 36415; 70450; 71045; 74176; 80048; 80053; 81001; 82607; 82962; 83690; 84443; 84484; 85025; 87426; 93005; 96361; 96374; 96375; 96376; 97162; 97166; 97530; 97802; 99218; 99285; J7030; A4216; G0378; J2405

== ENCOUNTER 2021-12-09 13:50 | Outpatient (RCR) | payer BC, SELFPAY ==
--- NOTE | 2021-12-15 09:19 | HP.FCE ---
Floor (Occasional 1-33% of Day): 80# Floor (Frequent 34-66% of Day): 40# Floor (Constant 67-100% of Day): 16# Floor PDL: Medium-Heavy Knee (Occasional 1-33% of Day): 80# Knee (Frequent 34-66% of Day): 40# Knee (Constant 67-100% of Day): 16# Knee PDL: Medium-Heavy Waist (Occasional 1-33% of Day): 80# Waist (Frequent 34-66% of Day): 40# Waist (Constant 67-100% of Day): 16# Waist PDL: Medium-Heavy Shoulder (Occasional 1-33% of Day): 65# Shoulder (Frequent 34-66% of Day): 32# Shoulder (Constant 67-100% of Day): 13# Shoulder PDL: Medium Overhead (Occasional 1-33% of Day): 25# Overhead (Frequent 34-66% of Day): 12# Overhead (Constant 67-100% of Day): 5# Overhead PDL: Light Bending: Frequent Ability (34-66% of day) Squatting: Frequent Ability (34-66% of day) Kneeling: Frequent Ability (34-66% of day) Comments: with use of external support as needed Reaching out: Constant Ability (67-100% of day) Reaching up: Constant Ability (67-100% of day) Sitting: Frequent Ability (34-66% of day) Walking: Frequent Ability (34-66% of day) Standing: Frequent Ability (34-66% of day) Duration Sedentary Sedentary Light Light Light Medium Medium Medium Heavy Very Heavy Heavy Occasional (0-33% of day) Frequent (34-66% of day) Constant (67-100% of day) 10 # Negligible Negligible 15 # 8 # Negligible 20 # 10# Negli. 35 # 18 # 7 # 50 # 25 # 10 # 75 # 100 # >100 # 38 # 50 # >50 # 15 # 20 # >20 # Weight:: 117.934 kg Hand Dominance: right Medical History Including Restrictions: Pt states he was in good health until he had a small stroke about 6 years ago- pt states after this stroke he was off work for about a year until [employer] regulation cleared him to return to work. pt states he had bilateral knee replacements done about 4 years ago. pt did return to work 8 months after his procedures. Pt was dx with COVID-19 2020 pt states he was in the hospital for 39 days- Pt states he was sent to [facility] and was under therapy services there for 2 weeks. states he was d/c there at the end of May. Pt states he started physical and occupation therapy and speech therapy 2 weeks after he returned home from [facility]. Pt states he underwent about 16 weeks of therapy 3x week. Pt continues with Speech therapy 1x week. Diagnoses: Abhishek flores with chronic neuro. Altered mental status. Hx of left lacunar stroke. DMII dx 2020 controlled with medication diet and insulins. HTN dx 6 years ago controlled with medication. Anxiety controlled with medication Symptoms: general pain Pain: Pt states bilateral knees and low back 4/10 pain- pt states he took Tylenol 3 a day mostly at night. Work History: Pt works for [employer] and has for the past 18 years. 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 pt states he may have to loading and lowering and raising the gate of truck about a 1/2 dozen times. pt states he works about 50-55 hours a week- pt is required to push/pull lift and move a number of boxes of chips- Behavioral: pt was cooperative and completed all tasks with good ability and effort. ADLS: Pt lives with his and son (25) in a two story home. pt has 3 entry steps - has hand rails on front porch no railing in garage. pt states his bedroom is on 2nd floor with 13 steps with handrail on left side. pt has walk in shower and a tub shower. Pt states he is ind. with bathing and dressing tasks. pt denies use of adaptive equipment. pt states he does the cooking,. laundry, cleaning and yard work. pt states he does continue to struggle with outside work. Pt drives [employer]. and will to the grocery shopping pt states no trouble will write list due to memory issues. ROM: pt demo ROM all WFL Strength: right shoulder 22# peak force left 21# peak force. right biceps 30# peak force triceps 22# peak force. left biceps 35# peak force triceps 29# peak force. right hip flexion 34# peak force left 35# peak force. right quad 42# peak force left 33# peak force. right hamstring 37# peak force left 28# peak force. pt demo good functional strength Right Academic Interventionist Strength Average: 86.66 Right Academic Interventionist Strength Percentile: 28% Left Academic Interventionist Strength Average: 85.00 Left Academic Interventionist Strength Percentile: 45% Right Lateral Pinch Average: 15.33 Right Lateral Pinch Percentile: 10% Left Lateral Pinch Average: 16.00 Left Lateral Pinch Percentile: 25% Right Tripod Pinch Average: 12.66 Right Tripod Pinch Percentile: 10% Left Tripod Pinch Average: 11.33 Left Tripod Pinch Percentile: 10% Sensation: denied Fine Motor: 9 hole peg test. right 22.90 = 50% for age. left 23.89 =50% for age Balance: The Functional Reach Test is a single item test. developed as a quick screen for balance. problems in older adults. Interpretation: A score of 6 or less indicates a significant. increased risk for falls. A score between 6-10 inches indicates a. moderate risk for falls. pt demo 13.5 reach. Age related norms for the functional reach test: Men Men. Age (inches). 20-40 yrs 16.7 ? 1.9. 41-69yrs 14.9 ? 2.2. 70-87 13.2 ? 1.6. pt tested at 13.5 indicating good balance Bending: pt demo the ability to bend forward 3/3x, 10/10x and 10/10 rapidly. pt can bend forward on a frequent ability. heart rate following 98 Squatting: pt demo the ability to squat 3/3x, 10/10x and 10/10x rapidly. pt reported bilateral knee pain following but unrated. heart rate 85. pt can squat on a frequent ability Kneeling: pt demo the ability to kneel 3/3x, 10/10x and 10/10 rapidly. pt did use external support to perform this task. pt can kneel on a frequent ability with external support as needed Reaching out/up: pt demo the ability to reach out- up/ 3/3x, 10/10x and 10/10x rapidly. pt can reach up/out on constant basis. pt inital heart rate was 80 following 84 Walking: pt demo the ability to ambulate 15min with a good gait pattern and speed. pt can ambulate on a frequent ability Standing: pt demo the ability to stand for 8 min with good ability shifting body wt on occasions no expressed or apparent discomfort. Sitting: pt demo the ability to sit for 45 min with no apparent or expressed discomfort. pt can sit on a frequent ability Climbing Stairs: Pt demo the ability to ascend and descend 10 steps with a reciprocal step pattern with good ability. Floor Lift: pt demo the ability to lift 80# maximally from this level with fair lifting mechanics. Knee Lift: pt demo the ability to lift 80# maximally from this level with fair lifting mechanics. Waist Lift: pt demo the ability to lift 80# maximally from this level with fair lifting mechanics. Shoulder Lift: pt demo the ability to lift 65# maximally from this level with fair lifting mechanics. Overhead Lift: pt demo the ability to lift 25# maximally from this level with fair lifting mechanics. Carrying: Carried 35# for 50 feet with good ability Comments: push/pull 90# for 30 feet with good ability
--- NOTE | 2021-12-15 09:19 | HP.OTFCE.D ---
FCE D/C Summary - Discharge ASHWINI GILBERTEY was seen for a one time visit for an FCE on 12/09/21 and is discharged.
== END 2021-12-09 19:00 | disposition home or self-care (01) ==
LOC: OT 13:50
PROVIDERS: PCP Physician Assistant; Referring Provider Physician Assistant; Visit Provider Physician Assistant
DX: R41.82 Altered mental status, unspecified (principal); I63.81 Other cerebral infarction due to occlusion or stenosis of small artery; U09.9 Post COVID-19 condition, unspecified
CPT/HCPCS: 97750

== ENCOUNTER 2022-02-06 08:00 | Outpatient (RCR) | payer BC, SELFPAY ==
--- NOTE | 2021-06-26 13:46 | HP.OTEVAL_ITS ---
Patient's Visit Information ASHWINI HAYES is a 61 year old M, referred to Occupational Therapy by VANITA ALEX, with a diagnosis of weakness/debility. Date of Evaluation: 06/26/21 Occupational Therapist: Toshia Jimenez, INDU/Melisa, CHT - Subjective This 61 year old male was seen for OT eval with dx of COVID-19. pt states on Apr.14 he was not feeling well- Pt states he works a [employer] and got sick- went to ER about a week later because he could not breath. pt states he spent about a month in the Hospital. during his stay at he had two seizures. pt did go to [facility] for rehab, did have seizure like activity one time at [facility]. pts states tolerated 3 hours of therapy a day- pt states he came home on 2020. pt works at [employer] 550-60 hours a week! pt drives [place]. and would do yard work and walk throughout [place] about a mile every so often. pt would like to get his strength back to return to work. - ADLs Household: Sweep/mop Yard: Mow Yaya donald Comments: son is doing yard work Comments: lives with in a two story home- use of cane and railing for support. pt states he has is fatigued after taking a shower- stands for his shower- will take a bath. pt ambulates with cane prior to hospitalization pt ambulated IND. laundry on 1st floor takes care of the laundry. pts is home but takes care of her mother in the AM and PM. - ROM ROM Comments: pt demo BUE ROM WNL - Strength Shoulder: right 4-/4 left 4-/5 Elbow: right 4-/5 left 4-/5 Library Circulation Technician: right 40# left 35# Lateral Pinch: right 10# left 2# Tripod Pinch: right 2# left 2# Strength Comments: pt demo a weakness of BUE that limits his performance with ADls and IADLS. - Sensation Sensation Comments: pt reports after he was sick he has noticed tingling in LE. - Quick DASH-Disab of Arm,Shoulder& Hand Quick DASH Score: 60.0000 - Goals Goal:: pt will demo a increase in BUE MMT to 5/5 by d/c to return to IADLs at IND. levels. pt will demo a increase in bilateral chemistry intern strength by 15# or greater to increase ind. with IADLs by dc Goal:: pt will demo understanding of energy conservation maggie. use as needed by d/c - Rehabilitation General Assessment: Pt demo with bilateral UB weakness limiting his safe functional mobility for IADLs and return to work. PT would benefit from skilled OT services 3x week for 4 weeks to return pts to PLOF. pt agrees with POC. Rehabilitation Potential: Excellent - Anticipated Interventions Strengthening, Ergonomic Education, Education re Diagnosis, Home Program - Visit Plan Frequency: 2-3x /Week Duration: 4 Weeks TEXT: Thank you for the opportunity to evaluate your patient. For Medicare and Medicare HMO plans, please review the plan of care and approve it. It will need to be FAXED BACK to us at [phone] for Medicare purposes. Please let me know if there are questions or concerns regarding this plan of care. Physician Signature: Date:
--- NOTE | 2021-06-26 14:16 | HP.PTEVAL_ITS ---
Patient's Visit Information ASHWINI HAYES is a 61 year old M referred to Physical Therapy by VANITA ALEX with a diagnosis of COVID RESPIRATORY DISTRESS SYNDROME. Date of Evaluation: 06/26/21 Physical Therapist: Eden Flowers PT, Cert MDT - Visit Plan Frequency: 3x /Week Duration: 4-6 Weeks Plan: GENERAL STRENGTHING. CORE AND BRICE LE ROM, STRETCHING AND STRENGTHENING TO HELP PATIENT RETURN TO PLOF. WILL ALSO BE RECIEVING OT AND THEY WILL BE WORKING ON UPPER BODY STRENGTHENING. 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 Disability: PARTIAL DISABILITY FOR COVID RELATED ISSUES. Present symptoms: HEADACHES. MILD CHEST PAIN. BODY ACHES. SOME TINGLING IN LEGS AND FEET. A LOT OF WEAKNESS. CONFUSION. TIREDNESS. TROUBLE CONCENTATING. IMBALANCE WITH WALKING AND STANDING. NO FALLS. Present since: APR 14 2021. Pain Scale: WORST 8/10, LEAST 6/10. Currently: 8/10. Commenced as a result of: COVID RELATED. Symptoms at onset: FATIGUE, SORE THROAT. Worse: TRYING TO MOVE TOO MUCH. T RYING TO THINK TOO HARD INCREASES HEADACHE. Better: LYING DOWN TO SLEEP. Disturbed sleep: YES. Treatment this episode: STARTED OFF WITH HOSPITALIZATION IN [place] X 6 DAYS THEN WENT HOME AND THEN GOT REAL SICK AGAIN AND WENT BACK TO [facility] ED AND DX'D WITH BLOOD CLOTS. SENT BACK HOME AND THEN WENT TO [facility] ED THAT SAME DAY AND WAS ADMITTED FOR 7 DAYS. THEY SENT HIM TO [facility] IN [place] AND WAS TESTED. NOTICED EYE FLUTTERING SO THEY SENT HIM TO [facility] ED AND WAS ADMITTED THERE FOR ABOUT 6 DAYS. UNCONSCIOUS FOR ABOUT 15 TO 30 SECS AT [facility]. NO ICU. NO VENTILATOR. THEN WENT TO REHAB AT [facility] JUN 03 2021 TO JUN 20 2021. SINCE HE HAS GOT HOME HE HAS BEEN TRYING TO DO HIS HOME EX'S, HELP AROUND THE HOUSE AND WALKS. WENT TO [employer]. Unexplained weight loss: HAS LOST 25 LBS SINCE DX WITH COVID. 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 BRICE TKR'S ABOUT 4 YEARS AGO. PLOF (Prior Level of Function): UNLIMITED. WORKING 55 TO 60 HOURS A WEEK. TOOK CARE OF ALL YARD WORK. HAS 40 APPLE TREES AND 2 ACRES. OTHER: PATIENT REPORTS HE HAS NOT DRIVEN SINCE COVID ONSET. - Objective Sitting/Standing Posture: POOR. FH. RS'S. INCREASED KYPHOSIS. Lordosis: REDUCED. Lateral shift: NO. Relevant shift: N/A. Active Correction of posture: CAUSES INCREASED PAIN AND MAKES PATIENT UNSTEADY. Other Observations: THIS PATIENT AMBULATES INDEP'LY INTO PT WITH A STRAIGHT CANE. HE WALKS WITH DECREASED CADANCE, DECREASED BRICE STRIDE LENGTH BUT GOOD SEQUENCING WITH CANE. Motor deficit: RIGHT LE WEAKER THAN LEFT. LLE STRENGTH GROSSLY 5/5 WITH MMTING EXCEPT HIP GRADED 4/5. RIGHT LE: HIP 4-/5, KNEE 4/5, ANKLE 5/5. Sensory deficit: BRICE LE LIGHT TOUCH SENSATION APPEARS INTACT AND SYMMETRICAL BUT REPORTS GENERALIZED TENDERNESS WITH TESTING. ROM deficit: PATIENT HAS TIGHT BRICE HIP FLEXORS, KNEE FLEX AND EXTENSION AND ANKLE PLANTAR FLEXORS. Dural Signs: NEGATIVE BRICE LE'S. Lumbar mvmt loss: flex - MOD. ext - KIERA. R SG - KIERA. L SG - KIERA. Core strength: POOR. OTHER: BRICE LE EDEMA. TREATMENT: ANNIA ROMUSCULAR REEDUCATION - RETRAINING OF MVMT AND POSTURE FOR SITTING, LYING AND STANDING ACTIVITIES. - Balance/Special Test Scores Lower Extremity Functional Score: 31 - Goals Goal 1:: PATIENT WILL BE INDEP AND SAFE WITH GAIT ON ALL SURFACES WITH LEAST ASSISTIVE DEVICE AND DEVIATIONS. Goal Time Frame: 6-8 Weeks Goal 2:: INCREASE FUNCTIONAL ROM OF TRUNK AND BRICE LE'S TO EASE ADL'S. Goal Time Frame: 6-8 Weeks Goal 3:: INCRASE FUNCTIONAL STRENGTH OF TRUNK AND LE'S TO EASE ADL'S Goal Time Frame: 6-8 Weeks Goal 4:: PATIENT WILL BE INDEP WITH A HEP FOR CONTINUED IMPROVEMENT ONCE FORMAL PHYSICAL THERAPY CONCLUDES. Goal Time Frame: 6-8 Weeks - Anticipated Interventions Patient/Client Instruction: Educate patient on: Condition, Plan of Care, Risk Factors, Benefits of Fitness Program For the Purpose of:: To improve self management Therapeutic Exercise to Include: Strength training, Endurance training, Body mechanics, Postural training, Flexibilty training, Gait and locomotor training, Neuromotor development, In an aquatic setting, Dynamic Lumbar Stabilization For the Purpose of:: To improve muscle performance and motor function, To increase tolerance to activity/condition/position, To improve ability of physical actions for home/community/work/leisure, To improve gait and locomotor functions Thank you for the opportunity to evaluate your patient. For Medicare and Medicare HMO plans, please review the plan of care and approve it. It will need to be FAXED BACK to us at [phone] for Medicare purposes. For Medicare only, by signing this I certify the plan of care. Please let me know if there are questions or concerns regarding this plan of care. Physician Signature: Date:
--- NOTE | 2021-07-15 09:35 | HP.SP.AD ---
History - History Date of Eval: 07/03/21 Previous speech therapy: Yes Results: Patient was receiving speech services at [facility] 5x/wk targetting attention, memory and executive functions. 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 The CLQT is to assess strength and weaknesses in five cognitive domains. Severity ratings are within normal limits, mild, moderate, severe deficits. The subtests are as follows: Date: 07/15/21 - Attention Attention: Mild - Memory Memory: Moderate - Executive Functions Executive Functions: Severe - Language Language: Mild - Visuospatial Skills Visuospatial Skills: Mild - Composite Severity Rating Composite Severity Rating: Moderate - Clock Drawing Severity Rating Clock Drawing Severity Rating: WNL - CLQT Comments Impressions Patient is a 61yo M s/p COVID19 respiratory distress and altered mental status. Administered the CLQT at this date to determine cognitive deficits. Patient presents w/ moderate cognitive impairment characterized by mild impairments in attention, language and visuospatial skills, moderate memory deficits, severe executive dysfunction. Patient reports that when he is tasked to do complex tasks (problem solving, memory exercises), ?it feels like there is a huge brick on my head and I can?t think.?. Patient was previously seen by Speech Therapy at [facility] and was receiving ST 5x - was recently d/c?d on April 20 and has been seeing PT/OT at . Patient reports daily tasks such as functional recall, concentration for ADLs, finances and medication routine have been impacted since his recent hospitalization. Reports that his manages his medication and that they both assist w/ finances. Patient w/ hx of TIA (4 year ago) - however, reports he had no problems s/p TIA. Plan - Plan Plan: ST is medically necessary to evaluate/assess cognitive function, improve cognition in the following areas re: attn, memory, executive funct., and design/instruct in use of compensatory strategies to patient can return to PLOF to live safely at home w/ minimal assistance. - Recommendations MBS: No Treatment Warranted: Yes - Frequency Frequency: 1x/Week Duration: 4-6 Weeks - Prognosis Prognosis: Excellent - Goals that are Established: Determination:: Goals will be added/modified as deemed necessary and appropriate. Therapy will be discontinued when results of re-evaluation indicate therapy is no longer needed or lack of progress has been documented. - Goal #1-5 Goal #1: Patient will utilize compensatory executive functioning / processing strategies identified and implemented during structured therapeutic tasks (i.e., note taking / list making, adhering to schedules, remove distractions, formulate a plan, double check work, talk out loud, etc.) to facilitate improved cognitive processing and achievement of the highest level of safe, independent functioning with 90% accuracy when given minimal-moderate cues. Goal #2: Patient will independently complete complex money management tasks with use compensatory strategies to ensure the highest level of safe, independent functioning with 90% accuracy. Goal #3: Patient will independently complete structured medication management tasks with use compensatory strategies to for the highest level of safe, independent functioning with 90% accuracy. Goal #4: Patient will utilize both internal and external memory strategies as needed (note taking, paraphrasing, repeating), with minimal cues to facilitate encoding and retrieval of information for improved functional independence upon return to home/community at discharge. Goal #5: Patient will demonstrate reading comprehension at the short paragraph level of 80% accuracy. Education - Patient has Indicated that the Following Identified Educational Needs: None The Patient has indicated that they have no educational or learning abilities that may effect their care.: Yes - Patient Instruction Patient Education: Diagnosis, Treatment Plan, Goals Person Taught: Patient, Family, Significant Other Teaching Method: Discussion Response to teaching: Verbalize understanding
--- NOTE | 2021-07-28 11:38 | OTREVAL_ITS ---
VANITA ALEX, It has been my pleasure to treat ASHWINI HAYES over the last 12 visits for weakness/debility. Please see the progress note below for an update on the occupational therapy p tran of care! 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 right lateral pinch 10# left 12#. right tripod pinch 6# left 6# this is increase from 2#. right shoulder flex 4/5 left 4/5. right biceps/triceps 4/5 this is improvement from initial eval. pt continues to demo weakness in bilateral UE and road inspector limiting pts functional mobility and use of bilateral hands for ADls and IADLs. pt would benefit from skilled OT services 2-3x week 6 more weeks to increase pts functional strength Plan Frequency: 2-3x /Week Duration: 6 Weeks Plan: please increase resistance on exercises. even if pt is doing 1 set of 6 than drop wt and do 1 set of 10. simulate work reach Goals - Goals Patient Goals: Regain Strength, Be More Independent in ADLS, Resume Former Household Responsibilities (Cooking,Cleaning,Yard, etc.) Goal:: pt will demo a increase in BUE MMT to 5/5 by d/c to return to IADLs at IND. levels. pt will demo a increase in bilateral road inspector strength by 15# or greater to increase ind. with IADLs by dc Goal:: pt will demo understanding of energy conservation maggie. use as needed by d/c Anticipated Interventions Anticipated Interventions: Strengthening, Ergonomic Education, Education re [place] gnosis, Home Program Please do not hesitate to contact me at [phone] by phone or if you have questions or concerns regarding this new plan of care! Sincerely, Toshia Jimenez, OTR/L, CHT
--- NOTE | 2021-07-28 16:27 | HP.PTREVAL_ITS ---
VANITA ALEX, It has been my pleasure to treat ASHWINI HAYES over the last 11 visits for COVID RESPIRATORY DISTRESS SYNDROME. Please see the progress note below for an update on the physical therapy plan of care! Subjective: PATIENT REPORTS HIS STRENGTH AND HIS BALANCE IS GETTING BETTER. STATES THAT OVER-ALL HIS PAIN IS GETTING A LITTLE BETTER EXCEPT RESENDIZ'S. PATIENT REPORTS HE IS STILL GETTING TIRED EASILY THOUGH. STILL IS WEAK AND OFF BALANCE. REPORTS HE STILL HAS SOME FOGGINESS IN HIS BRAIN. REPORTS STILL HAVING GENERAL PAIN AND HEADACHES AND LEG/FOOT TINGLING. FOLLOW UP WITH PAULINE DUNCAN 08/12/21 (LAST VISIT WAS 07/03/21). RTW DATE WAS CHANGED TO 08/12/21 AT LAST VISIT. PATIENT REPORTS HIS HEADACHES SEEM TO BE GETTING A LITTLE WORSE BUT EVERY THING ELSE SEEMS TO BE HEADED THE RIGHT DIRECTION. PATIENT DENIES ANY FALLS. STATES HE IS STILL USING HIS CANE BECAUSE OF STILL GETTING OFF BALANCE. PATIENTS REPORTS SHE IS NOTICING HER IS MORE STABEL AND HE IS DOING MORE AROUND THE HOUSE. STATES HE ISN'T SLEEPING MUCH AND DOESN'T FALL BACKWARDS WHEN HE GETS UP LIKE BEFORE. Objective/Function: PATIENT WAS SEEN TODAY FOR RE-ASSESSMENT OF PROGRESS TOWARD THE SET PT GOALS AND THE NEED FOR FURTHER PHYSICAL THERAPY VS READINESS FOR DISCHARGE. PATIENT CONTINUES TO HAVE SIGNIFICANT GENERALIZED WEAKNESS, TI GHTNESS AND C/O'S OF PAIN. HE IS MAKING SMALL IMPROVEMENTS SLOWLY. HE IS A GOOD CANDIDATE TO CONTINUE FORMAL PT BASED ON PROGRESS MADE AND ROOM FOR FURTHER IMPROVEMENT. PATIENT AGREEABLE. UPON EXAM TODAY: THIS PATIENT AMBULATES INDEP'LY INTO PT WITH A STRAIGHT CANE. HE WALKS WITH DECREASED CADANCE, DECREASED BRICE STRIDE LENGTH BUT GOOD SEQUENCING WITH CANE. Motor deficit: RIGHT LE WEAKER THAN LEFT. LLE STRENGTH GROSSLY 5/5 WITH MMTING EXCEPT HIP GRADED 4/5. RIGHT LE: HIP 4-/5, KNEE 4/5, ANKLE 5/5. SLS - PATIENT IS UNABLE TO SLS ON EITHER LEG FOR MORE THAN A SECOND OR TWO WITHOUT UE ASSIST. Sensory deficit: BRICE LE LIGHT TOUCH SENSATION APPEARS INTACT AND SYMMETRICAL AND REPORTS GENERALIZED TENDERNESS WITH TESTING HAVE SIGNIFICANTLY DECREASED SINCE INTIAL EVAL. ROM deficit: PATIENT HAS TIGHT BRICE HIP FLEXORS, KNEE FLEX AND EXTENSION AND ANKLE PLANTAR FLEXORS. Dural Signs: NEGATIVE BRICE LE'S. Lumbar mvmt loss: flex - MOD. ext - KIERA. R SG - KIERA. L SG - KIERA. Core strength: POOR. OTHER: BRICE LE EDEMA IS VERY MINIMAL TODAY. THIS PT RECOMMENDED PATIENT CONTACT YARITZA BAUGH'S OFFICE TO LET HIM KNOW HIS HEADACHES SEEM TO BE GETTING A LITTLE WORSE. THERAPIST ESSENTIAL FOR SAFE AND PROPER EX TECHNIQUE TO PROGRESS. Plan Plan: ADD MORE BALANCE ACTIVITIES IN THE PARALLEL BARS AND WITH GAIT BELT FOR SAFETY. ALSO ASSIST PATIENT IN CLINIC WITH LE FLEXABILITY NEEDED. GENERAL STRENGTHING. CORE AND BRICE LE ROM, STRETCHING AND STRENGTHENING TO HELP PATIENT RETURN TO PLOF. WILL ALSO BE RECIEVING OT AND THEY WILL BE WORKING ON UPPER BODY STRENGTHENING. Balance/Gait/Functional tests - Balance/Special Test Scores Lower Extremity Functional Score: 35 Goals Goal 1:: PATIENT WILL BE INDEP AND SAFE WITH GAIT ON ALL SURFACES WITH LEAST ASSISTIVE DEVICE AND DEVIATIONS. Goal Time Frame: 6-8 Weeks Goal Progress: Progressing Goal 2:: INCREASE FUNCTIONAL ROM OF TRUNK AND BRICE LE'S TO EASE ADL'S. Goal Time Frame: 6-8 Weeks Goal Progress: Progressing Goal 3:: INCRASE FUNCTIONAL STRENGTH OF TRUNK AND LE'S TO EASE ADL'S Goal Time Frame: 6-8 Weeks Goal Progress: Progressing Goal 4:: PATIENT WILL BE INDEP WITH A HEP FOR CONTINUED IMPROVEMENT ONCE FORMAL PHYSICAL THERAPY CONCLUDES. Goal Time Frame: 6-8 Weeks Goal Progress: Progressing Anticipated Interventions Patient/Client Instruction: Educate patient on: Condition, Plan of Care, Risk Factors, Benefits of Fitness Program For the Purpose of:: To improve self management Therapeutic Exercise to Include: Strength training, Endurance training, Body mechanics, Postural training, Flexibilty training, Gait and locomotor training, Neuromotor development, In an aquatic setting, Dynamic Lumbar Stabilization For the Purpose of:: To improve muscle performance and motor function, To increase tolerance to activity/condition/position, To improve ability of physical actions for home/community/work/leisure, To improve gait and locomotor functions Please do not hesitate to contact me at [phone] by phone or if you have questions or concerns regarding this new plan of care! Sincerely, Eden Flowers, PT, Cert MDT
--- NOTE | 2021-09-10 11:14 | HP.PTREVAL ---
VANITA ALEX, It has been my pleasure to treat ASHWINI HAYES over the last 25 visits for COVID RESPIRATORY DISTRESS SYNDROME. Please see the progress note below for an update on the physical therapy plan of care! Subjective: PATIENT REPORTS HE FEELS THERAPY IS STILL HELPING QUITE A BIT. PATIENT REPORTS HE IS CONTINUALLY GOING FORWARD WITH HIS STRENGTH AND BALANCE EXCEPT LAST WEEK WHEN HE WAS SENT TO THE HOSPITAL. HE REPORTS THE BALANCE TRAINING HAS ESPECIALLY BEEN A BIG HELP. HE REPORTS HE IS BALANCING ON HIS FEET BETTER AND HAS LOST HIS BALANCE BUT NOT FALLEN SINCE LAST RE-CHECK WITH THIS PT. 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 PATIENT REPORTS HE WOULD LIKE TO CONTINUE THERAPY. THIS PT VERIFIED WITH PATIENT THAT HE HAS NOT RECIEVED HOME HEALTH SERVICES FOR A LONG TIME AND NOT SINCE HE HAS BEEN COMING HERE FOR THERAPY. HE REPORTS FEELING LIKE HE IS RECOVERING FROM LAST WEEK AND IS REALLY HAPPY WITH THE THERAPY HE IS GETTING HERE. HE REPORTS HIS GOAL IS STILL TO RETURN TO HIS PRIOR JOB. Objective/Function: PATIENT WAS SEEN TODAY FOR RE-ASSESSMENT OF PROGRESS TOWARD THE SET PT GOALS AND THE NEED FOR FURTHER PHYSICAL THERAPY VS READINESS FOR DISCHARGE. PATIENT CONTINUES TO HAVE SIGNIFICANT LE TIGHTNESS AND C/O'S OF PAIN BUT BALANCE, STRENGTH AND LUMBAR ROM ARE IMPROVING SLOWLY. HE IS A GOOD CANDIDATE TO CONTINUE FORMAL PT BASED ON PROGRESS MADE AND ROOM FOR FURTHER IMPROVEMENT. PATIENT AGREEABLE AND REPORTS WHEN GIVEN THE OPTION AT THE HOSPITAL HE CHOSE TO RETURN HERE FOR PT INSTEAD OF GOING TO AN IN-PATIENT FACILITY. UPON EXAM TODAY: THIS PATIENT AMBULATES INDEP'LY INTO PT WITH A STRAIGHT CANE. HE WALKS WITH DECREASED CADANCE, MILD DECREASED BRICE STRIDE LENGTH BUT GOOD SEQUENCING WITH CANE WHEN HE USES IT. STRIDE LENGTH, CADANCE AND BALANCE ARE IMPROVING. PATIENT DEMO'S GOOD BALANCE WITHOUT AD REACHING UP TO HANG COAT UP IN OT AREA TODAY. HE ALSO IS ONLY INTERMITTENTLY USING CANE IN CLINIC TODAY WITHOUT LOB. HE IS NOW ABLE TO SINGLE LEG STANCE ON EACH LEG WITHOUT UE ASSIST X APPROX 3 SEC EA. HE LACKS CONFIDENCE WITH BALANCE TESTING BUT PERFORMANCE IS BETTER. Motor deficit: BRICE LE STRENGTH IS 5/5 WITH MMT'ING TODAY. Sensory deficit: BRICE LE LIGHT TOUCH SENSATION IS INTACT AND SYMMETRICAL AND NO C/O TENDERNESS WITH TESTING TODAY. ROM deficit: PATIENT HAS TIGHT BRICE HIP FLEXORS, KNEE FLEX AND EXTENSION AND ANKLE PLANTAR FLEXORS. Dural Signs: NEGATIVE BRICE LE'S. Lumbar mvmt loss: flex - MOD. ext - MOD. R SG - MOD. L SG - MOD. CG PROVIDED DURING LUMBAR ROM TESTING FOR SAFETY AND PATIENT NEEDING UE ASSIST TO KEEP FROM LOSING BALANCE BACKWARDS DURING LUMBAR EXT ROM TESTING. Core strength: POOR. OTHER: NO BRICE LE EDEMA EVIDENT TODAY WITH OBSERVATION. CASE CONFERENCES WITH [employer] IT SPECIALIST REGUARDING POC BELOW AND WITH [facility] OT REGUARDING PT FINDINGS TODAY AND FOR COORDINATION OF SERVICES. Plan Plan: CONTINUE BALANCE ACTIVITIES IN THE PARALLEL BARS AND WITH GAIT BELT FOR SAFETY. ALSO ASSIST PATIENT IN CLINIC WITH LE FLEXABILITY NEEDED. GENERAL STRENGTHING. CORE AND BRICE LE ROM, STRETCHING AND STRENGTHENING TO HELP PATIENT RETURN TO PLOF. WILL ALSO BE RECIEVING OT AND THEY WILL BE WORKING ON UPPER BODY STRENGTHENING. COORDINATE WITH OT TO AVOID DUPLICATE OF SERVICES. Balance/Gait/Functional tests - Balance/Special Test Scores Lower Extremity Functional Score: 39 Goals Goal 1:: PATIENT WILL BE INDEP AND SAFE WITH GAIT ON ALL SURFACES WITH LEAST ASSISTIVE DEVICE AND DEVIATIONS. Goal Time Frame: 6-8 Weeks Goal Progress: Progressing Goal 2:: INCREASE FUNCTIONAL ROM OF TRUNK AND BRICE LE'S TO EASE ADL'S. Goal Time Frame: 6-8 Weeks Goal Progress: Progressing Goal 3:: INCRASE FUNCTIONAL STRENGTH OF TRUNK AND LE'S TO EASE ADL'S Goal Time Frame: 6-8 Weeks Goal Progress: Progressing Goal 4:: PATIENT WILL BE INDEP WITH A HEP FOR CONTINUED IMPROVEMENT ONCE FORMAL PHYSICAL THERAPY CONCLUDES. Goal Time Frame: 6-8 Weeks Goal Progress: Progressing Anticipated Interventions Patient/Client Instruction: Educate patient on: Condition, Plan of Care, Risk Factors, Benefits of Fitness Program For the Purpose of:: To improve self management Therapeutic Exercise to Include: Strength training, Endurance training, Body mechanics, Postural training, Flexibilty training, Gait and locomotor training, Neuromotor development, In an aquatic setting, Dynamic Lumbar Stabilization For the Purpose of:: To improve muscle performance and motor function, To increase tolerance to activity/condition/position, To improve ability of physical actions for home/community/work/leisure, To improve gait and locomotor functions Please do not hesitate to contact me at [phone] by phone or if you have questions or concerns regarding this new plan of care! Sincerely, Eden Flowers PT, Cert MDT
--- NOTE | 2021-09-17 16:48 | OTREVAL_ITS ---
VANITA ALEX, It has been my pleasure to treat ASHWINI HAYES over the last 30 visits for weakness/debility. Please see the progress note below for an update on the occupational therapy p tran of care! Subjective: Pt arrived from PT out of breath. Pt states his BP was good yesterday bat Dr office, headache is down 2/10 , very exhausted after last session. Dr took pt off of sleeping pill and pt hasn't slept in 2 nights. Objective/Function: Gait belt on pt for safety, CGA while completing sled , SBA when standing and completing free weights. right seismic prospecting observer strength 85# increase from 40#. left seismic prospecting observer strength 90# increase from 35#. right lateral pinch 14# was 10# left lateral pinch 19# was 12# and right tripod pinch 12# was 6# and le ft tripod pinch 10# was 6#-. right MMT Right shoulder. 4+/5 left 4+/5. right MMT biceps/triceps 4+/5 left 4+/5. pt is making gains and would benefit from skilled OT services 2-3x week for 2-4 weeks to initiate work simulated related tasks. Plan Frequency: 2-3x /Week Duration: 2-4 Weeks Plan: cont POC Goals - Goals Patient Goals: Regain Strength, Be More Independent in ADLS, Resume Former Household Responsibilities (Cooking,Cleaning,Yard, etc.) Goal:: pt will demo a increase in BUE MMT to 5/5 by d/c to return to IADLs at IND. levels. pt will demo a increase in bilateral seismic prospecting observer strength by 15# or greater to increase ind. with IADLs by dc Goal:: pt will demo understanding of energy conservation maggie. use as needed by d/c Goal:: pt will demo the ability to lift 50# box lift from different levels (floor, knee height, and waist heights) with good lifting mechanics by dc Anticipated Interventions Anticipated Interventions: Strengthening, Ergonomic Education, Education re Diagnosis, Home Program Please do not hesitate to contact me at [phone] by phone or if you have questions or concerns regarding this new plan of care! Sincerely, Toshia Jimenez, OTR/L, CHT
--- NOTE | 2021-10-03 13:52 | HP.SP.ADRE ---
Previous/Current Goals - Goals 1-5 Previous Goal #1: Patient will utilize compensatory executive functioning / processing strategies identified and implemented during structured therapeutic tasks (i.e., note taking / list making, adhering to schedules, remove distractions, formulate a plan, double check work, talk out loud, etc.) to facilitate improved cognitive processing and achievement of the highest level of safe, independent functioning with 90% accuracy when given minimal-moderate cues. Previous Goal #2: Patient will independently complete complex money management tasks with use compensatory strategies to ensure the highest level of safe, independent functioning with 90% accuracy. Previous Goal #3: Patient will independently complete structured medication management tasks with use compensatory strategies to for the highest level of safe, independent functioning with 90% accuracy. Previous Goal #4: Patient will utilize both internal and external memory strategies as needed (note taking, paraphrasing, repeating), with minimal cues to facilitate encoding and retrieval of information for improved functional independence upon return to home/community at discharge. Previous Goal #5: Patient will demonstrate reading comprehension at the short paragraph level of 80% accuracy. History - History Date of Eval: 07/03/21 Medical Diagnosis (from RX): covid resp distress synd. RX HERE Previous speech therapy: Yes Results: Patient was receiving speech services at [facility] 5x/wk targetting attention, memory and executive functions. 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 The CLQT assesses the following cognitive domains - Attention, Memory, Executive Function, Language, and Visuospatial Skills. Tasks completed within this test include Personal Facts, Symbol Cancellation, Confrontation Naming, Clock Drawing, Story Retelling, Symbol Trails, Generative Naming, Design Memory, Mazes, and Design Generation, with each task addressing different cognitive-linguistic functions. . Results of the CLQT are as follows: Cognitive Domain Scores. Personal Facts (memory and language ability): 04/20. Symbol Cancellation (nonlinguistic task of visual attention and perception, integrity of the upper/lower quadrants of the left/right visual wade): 08/24. Confrontation Naming (aphasia, perseveration, verbosity): 06/22. Clock Drawing (screening of all cognitive domains): . Story Retelling (memory and comprehension, arousal, attention, storage capacity, narrative skills): 02/20. Symbol Trails (nonlinguistic task to assess planning, self-monitoring, working memory, and visual attention, and impulsivity): 04/22. Generative Naming (word retrieval skills, perseveration): 02/19 with a perseveration ratio of 0.0 %. Design Memory (nonlinguistic task to assess visual discrimination & analysis, attention, and visual memory, impulsivity, perseveration): 01/16. Mazes (planning, mental flexibility, self-monitoring, visual discrimination, and impulsivity): 04/20. Design Generation (nonlinguistic task of creativity and mental flexibility): 11/23. . Severity Rating. Attention: Cognitive Domain Score = 189 - moderate impairment (normal 215-180). Memory: Cognitive Domain Score = 148 - mild impairment (normal 185-155). Executive Functioning: Cognitive Domain Score = 25- sev impairment (normal 40-24). Language: Cognitive Domain Score = 30 - WNL. Visuospatial Skills: Cognitive Domain Score = 87 - moderate impairment (105-82). Clock Drawing: Score = 13 - WNL. Composite Severity Rating: MILD COG IMPAIRMENT CLQT - CLQT CLQT Administered: Yes CLQT: Cognitive Linguistic Quick Test (CLQT) is a criterion - referenced assessment designed for adults between the ages of 18 and 89 with known or suspected neurological dysfuntions. The CLQT is to assess strength and weaknesses in five cognitive domains. Severity ratings are within normal limits, mild, moderate, severe deficits. The subtests are as follows: Date: 10/03/21 - Attention Attention: Mild - Memory Memory: Moderate - Executive Functions Executive Functions: Severe - Language Language: Mild - Visuospatial Skills Visuospatial Skills: Mild - Composite Severity Rating Composite Severity Rating: Moderate - Clock Drawing Severity Rating Clock Drawing Severity Rating: WNL - CLQT Comments Impressions Patient is a 61yo M s/p COVID19 respiratory distress and altered mental status. Administered the CLQT at this date to determine cognitive deficits. Patient presents w/ moderate cognitive impairment characterized by mild impairments in attention, language and visuospatial skills, moderate memory deficits, severe executive dysfunction. Patient reports that when he is tasked to do complex tasks (problem solving, memory exercises), ?it feels like there is a huge brick on my head and I can?t think.?. Patient was previously seen by Speech Therapy at [facility] and was receiving ST 5x - was recently d/c?d on April 20 and has been seeing PT/OT at . Patient reports daily tasks such as functional recall, concentration for ADLs, finances and medication routine have been impacted since his recent hospitalization. Reports that his manages his medication and that they both assist w/ finances. Patient w/ hx of TIA (4 year ago) - however, reports he had no problems s/p TIA. Plan - Plan Plan: ST is medically necessary to evaluate/assess cognitive function, improve cognition in the following areas re: attn, memory, executive funct., and design/instruct in use of compensatory strategies to patient can return to PLOF to live safely at home w/ no to minimal assistance. - Recommendations Treatment Warranted: Yes - Frequency Frequency: 1x/Week Duration: 4-6 Months - Prognosis Prognosis: Excellent - Goals that are Established: Determination:: Goals will be added/modified as deemed necessary and appropriate. Therapy will be discontinued when results of re-evaluation indicate therapy is no longer needed or lack of progress has been documented. - Goal #1-5 Goal #1: Patient will utilize compensatory executive functioning / processing strategies identified and implemented during structured therapeutic tasks (i.e., note taking / list making, adhering to schedules, remove distractions, formulate a plan, double check work, talk out loud, etc.) to facilitate improved cognitive processing and achievement of the highest level of safe, independent functioning with 90% accuracy when given minimal cues. Goal #2: Patient will utilize both internal and external memory strategies as needed (note taking, paraphrasing, repeating), with minimal cues to facilitate encoding and retrieval of information for improved functional independence upon return to home/community at discharge. Goal #3: Patient will demonstrate reading comprehension at the short paragraph level auditorily presented w/ 80% accuracy.
--- NOTE | 2021-10-09 12:37 | HP.PTREVAL_ITS ---
VANITA ALEX, It has been my pleasure to treat ASHWINI HAYES over the last 35 visits for COVID RESPIRATORY DISTRESS SYNDROME. Please see the progress note below for an update on the physical therapy plan of care! Subjective: PATIENT REPORTS HE HAS GAINED A LOT OF HIS STRENGTH BACK AND HIS BALANCE AND STEADINESS IS GETTING BETTER AND MAKING PROGRESS. ALL THE EX'S ARE HELPING TREMENDOUSLY. PATIENT REPORTS HE CAN DO A LOT OF THE HOUSEWORK, COOKING AND CLEANING NOW BUT STILL CAN NOT DO HEAVY OUTSIDE WORK LIKE SHOVELING SNOW. ABLE TO SHOVEL A LITTLE BIT OF SNOW. STATES HE GOT NAUSEOUS AFTER SHOVELING. PICKING UP A MEDICINE TODAY THAT HE IS GOING TO RESUME (WAS ON IT AT [facility] FOR BLOOD PRESSURE) PER PATIENT REPORT. FOLLOW UP PENDING WITH PAULINE DUNCAN 10/14/21 (NEXT WEDNESDAY). Objective/Function: PATIENT WAS SEEN TODAY FOR RE-ASSESSMENT OF PROGRESS TOWARD THE SET PT GOALS AND THE NEED FOR FURTHER PHYSICAL THERAPY VS READINESS FOR DISCHARGE. PATIENT IS MAKING GOOD PROGRESS TOWARD ALL PT GOALS. LEFS SCORE IS IMRROVING TOO. PATIENT MAY BENEFIT FROM [facility] PRIOR TO RETURN TO WORK. UPON EXAM TODAY: THIS PATIENT AMBULATES INDEP'LY INTO PT WITH A STRAIGHT CANE BUT HE IS NOT DEPENDENET ON IT AND ABLE TO WALK WITHOUT IT WITHOUT LOB ON LEVEL SURFACES > 300 FEET. INDEP GAIT UP AND DOWN STEPS WITH ONE UE ASSIST AND CARRYING 15 LBS LAST VISIT (UP AND DOWN STEPS WITH NO UE ASSIST THE VISIT BEFORE). HE WALKS WITH DECREASED CADANCE, MILD DECREASED BRICE STRIDE LENGTH STRIDE LENGTH BUT CADANCE AND BALANCE ARE IMPROVING AND GOOD TUG TIME TODAY. STATIC BALANCE IS GOOD. HE IS NOW ABLE TO SINGLE LEG STANCE ON EACH LEG WITHOUT UE ASSIST X >20 SEC EA. HE STILL LACKS CONFIDENCE WITH BALANCE TESTING BUT PERFORMANCE IS GOOD. FURTHER BALANCE TESTING PENDING - SEE PLAN BELOW. Motor deficit: BRICE LE STRENGTH IS 5/5 WITH MMT'ING TODAY. Sensory deficit: BRICE LE LIGHT TOUCH SENSATION IS INTACT AND SYMMETRICAL AND NO C/O TENDERNESS WITH TESTING. ROM deficit: PATIENT HAS TIGHT BRICE HIP FLEXORS, KNEE FLEX AND EXTENSION AND ANKLE PLANTAR FLEXORS. Dural Signs: NEGATIVE BRICE LE'S. Lumbar mvmt loss: flex - MIN TO MOD. ext - MOD. R SG - MOD. L SG - MOD. Core strength: FAIR. TUG TIME: 10.76 SEC. CASE CONFERENCES WITH AMA PRICE AND MAYRA MELENDREZ TODAY. PATIENT ABLE TO PERFORM THE FOLLOWING THER EX/ACTIVITIES AT VISIT 10/06/21: NuStep: L6 10' to improve CV and LE endurance -monitored for set-up and subjective intake. Loaded Stair Climb: 15#/1UEA- 2 flights x1 each arm. Chair Squat w/OH Press: 15# 3x10. Kneel to stand: 3x6 each side for work simulation BUE. Rocker Balance: 2 minutes x1 CGA. 3-way Ball Toss at Rebounder: Foam/NBOS x30 each way. Seated Leg Press: 125# 2x15. Seated Hip Abduction: 60# 3x10 Plan Plan: CONTINUE PT DECREASING TO 2X'S A WEEK X 2 WEEKS THEN 1X/WK X 2 WEEKS TO HELP PATIENT SUCCESSFULLY AND SAFELY TRANSITION TO INDEP GYM PROGRAM FOR CO NTINUED IMPROVEMENT ONCE FORMAL PHYSICAL THERAPY CONCLUDES. PATIENT IS AGREEABLE. GYM PROGRAM WITH FOCUS ON IMPROVING ENDURANCE AND GENERAL STRENGTH ALONG WITH A HEP FOR TRUNK AND LE FLEXABILITY AND FOR IMPROVED BALANCE. WORK SIMULATION ACTIVITIES. NEUROCOM BALANCE ASSESSMENT TEST AND FUNCTIONAL GAIT INDEX TESTING WITH ANEESH SOSA DPT. PATIENT AGREEABLE TO THIS POC TODAY AND REPORTS HE FEELS READY AND SAFE TO START TRANSITIONING TO INDEP EX. HE REPORTS HE WOULD RATHER JOIN [facility] VS OTHER COMMUNITY GYMS. Balance/Gait/Functional tests - Balance/Special Test Scores Lower Extremity Functional Score: 47 Goals Goal 1:: PATIENT WILL BE INDEP AND SAFE WITH GAIT ON ALL SURFACES WITH LEAST ASSISTIVE DEVICE AND DEVIATIONS. Goal Time Frame: 6-8 Weeks Goal Progress: Progressing Goal 2:: INCREASE FUNCTIONAL ROM OF TRUNK AND BRICE LE'S TO EASE ADL'S. Goal Time Frame: 6-8 Weeks Goal Progress: Progressing Goal 3:: INCRASE FUNCTIONAL STRENGTH OF TRUNK AND LE'S TO EASE ADL'S Goal Time Frame: 6-8 Weeks Goal Progress: Progressing Goal 4:: PATIENT WILL BE INDEP WITH A HEP FOR CONTINUED IMPROVEMENT ONCE FORMAL PHYSICAL THERAPY CONCLUDES. Goal Time Frame: 6-8 Weeks Goal Progress: Progressing Anticipated Interventions Patient/Client Instruction: Educate patient on: Condition, Plan of Care, Risk Factors, Benefits of Fitness Program For the Purpose of:: To improve self management Therapeutic Exercise to Include: Strength training, Endurance training, Body mechanics, Postural training, Flexibilty training, Gait and locomotor training, Neuromotor development, In an aquatic setting, Dynamic Lumbar Stabilization For the Purpose of:: To improve muscle performance and motor function, To incr ease tolerance to activity/condition/position, To improve ability of physical actions for home/community/work/leisure, To improve gait and locomotor functions Please do not hesitate to contact me at [phone] by phone or if you have questions or concerns regarding this new plan of care! Sincerely, Eden Flowers, PT, Cert MDT
--- NOTE | 2021-10-13 11:06 | HP.OTDCSUM ---
It has been my pleasure to treat ASHWINI HAYES under orders from VANITA ALEX, for the diagnosis of weakness/debility for a total of 35 visit(s). Please see the following information for a summary of their discharge status. % Improvement: 75 Objective/Function: right publications manager strength 85# increase from 40#. left publications manager strength 90# increase from 35#. right lateral pinch 14# it was 10# left lateral pinch 19# was 12# and right tripod pinch 12# was 6# and left tripod pinch 10# was 6#-. right MMT Right shoulder. 4+/5 left 4+/5. right MMT biceps/triceps 4+/5 left 4+/5. pt has met OT goals and has agreed to D/C with use of HEP or Adding a health and wellness membership - Patient Goals: Regain Strength, Be More Independent in ADLS, Resume Former Household Responsibilities (Cooking,Cleaning,Yard, etc.) Goal:: pt will demo a increase in BUE MMT to 5/5 by d/c to return to IADLs at IND. levels ( goal met). pt will demo a increase in bilateral publications manager strength by 15# or greater to increase ind. with IADLs by dc (goal was met) Goal:: pt will demo understanding of energy conservation maggie. use as needed by d/c (goal is met) Goal:: pt will demo the ability to lift 50# box lift from different levels (floor, knee height, and waist heights) with good lifting mechanics by dc ( goal met) Plan: D/C therapist encouraged to initiate a health and wellness program- Discharge Comments: pt has made great progress and has met OT goals- pt is d/c but therapy has encouraged pt to continue with his HEP and or add a health and wellness program. pt agree to POC. If there are questions or concerns regarding this patient's occupational therapy, please fell free to call me at [phone]. Thank you for the referral of this patient. Sincerely, Toshia Jimenez, OTR/L, CHT
--- NOTE | 2021-10-16 11:39 | HP.PTCOM ---
PT Communication Note 10/16/[address] VANITA ALEX , Thank you for the referral of Rickey to [facility] for balance assessment. I have enclosed a copy of the results for your review. In summation, he is moving slowly effecting his score on the Functional Gait Assessment. He shows vestibular deficits on the sensory Organization Test. He shows latency on the Motor Control Test consistent with neuropathy possibly. He shows slowness and excursion deficits on the Limits of Stability Test. I will be adding exercises to address these deficits to his most recent POC. Please feel free to contact me if there are questions. Thank you. Sincerely, Feng Mendoza, DPT, OCS, CSCS Contact Information
--- NOTE | 2021-11-14 14:00 | HP.PTREVAL_ITS ---
VANITA ALEX, It has been my pleasure to treat ASHWINI HAYES over the last 42 visits for COVID RESPIRATORY DISTRESS SYNDROME. Please see the progress note below for an update on the physical therapy plan of care! Subjective: PATIENT REPORTS HE HAS NOT BEEN ABLE TO COME TO PT THE LAST 2 WEEKS DUE TO NOT FEELING WELL. STATES HE HAS SOMETHING FLASHING IN HIS HEAD CAUSING HIS EYE SIGHT TO MALFUNCTION AND HE HAS A NEW PAIN IN HIS RIGHT SIDE. HE REPORTS HE STARTED HAVING THESE SYMPTOMS FOR NO APPARENT REASON. HE REPORTS HE HAS NOT TALKED TO A DOCTOR ABOUT THESE SYMPROMS YET BUT NOW HE THINKS HE IS GOING TO HAVE TO GO TO THE DOCTOR BECAUSE IT ISN'T GETTING BETTER. HE REPORTS HE HAS A FOLLOW UP CLARIBEL'T WITH YARITZA BAUGH 11/25/21 BUT HE IS THINKING HE IS NOT GOING TO BE ABLE TO MAKE IT THAT LONG. OTHERWISE HE REPORTS HIS ONLY OTHER CHOICE IS TO GO TO URGENT CARE. HE REPORTS HE DOESN'T FEEL HE HAS ANYTHING CONTAGEOUS OR HE WOULD'T BE HERE BUT HE DIDN'T WANT TO MISS ANOTHER PT CLARIBEL'T. REPORTS HE FEELS TOO WEAK TO DO THE EX'S THAT HE DID WITH US TWO WEEKS AGO. Objective/Function: THIS PATIENT AMBULATES INDEP'LY INTO PT TODAY WITHOUT ANY ASSISTIVE DEVICES OR LOB BUT WITH DECREASED CADANCE. HE FILLED OUT THE LEFS BUT SESSION WAS CONCLUDED DUE TO NEW SYMPTOMS. PATIENT WAS MAKING GOOD PROGRESS TOWARD ALL PT GOALS PRIOR TO THIS SET BACK. Plan Plan: RE-CHECK WHEN MEDICALLY CLEARED TO RESUME PT. PATIENT IS AWARE THAT HE NEEDS A NEW ORDER TO RESUME PT. Balance/Gait/Functional tests - Balance/Special Test Scores Functional Gait Assessment Score: 25 % Disability: 16.6700 Lower Extremity Functional Score: 58 Goals Goal 1:: PATIENT WILL BE INDEP AND SAFE WITH GAIT ON ALL SURFACES WITH LEAST ASSISTIVE DEVICE AND DEVIATIONS. Goal Time Frame: 6-8 Weeks Goal Progress: Not Progressing Goal 2:: INCREASE FUNCTIONAL ROM OF TRUNK AND BRICE LE'S TO EASE ADL'S. Goal Time Frame: 6-8 Weeks Goal Progress: Not Progressing Goal 3:: INCRASE FUNCTIONAL STRENGTH OF TRUNK AND LE'S TO EASE ADL'S Goal Time Frame: 6-8 Weeks Goal Progress: Not Progressing Goal 4:: PATIENT WILL BE INDEP WITH A HEP FOR CONTINUED IMPROVEMENT ONCE FORMAL PHYSICAL THERAPY CONCLUDES. Goal Time Frame: 6-8 Weeks Goal Progress: Not Progressing Anticipated Interventions Patient/Client Instruction: Educate patient on: Condition, Plan of Care, Risk Factors, Benefits of Fitness Program For the Purpose of:: To improve self management Therapeutic Exercise to Include: Strength training, Endurance training, Body mechanics, Postural training, Flexibilty training, Gait and locomotor training, Neuromotor development, In an aquatic setting, Dynamic Lumbar Stabilization For the Purpose of:: To improve muscle performance and motor function, To increase tolerance to activity/condition/position, To improve ability of physical actions for home/community/work/leisure, To improve gait and locomotor functions Please do not hesitate to contact me at [phone] by phone or Fax: if you have questions or concerns regarding this new plan of care! Sincerely, Eden Flowers, PT, Cert MDT
--- NOTE | 2021-11-19 12:59 | HP.PTREVAL_ITS ---
VANITA ALEX, It has been my pleasure to treat ASHWINI HAYES over the last 43 visits for COVID RESPIRATORY DISTRESS SYNDROME. Please see the progress note below for an update on the physical therapy plan of care! Subjective: PATIENT REPORTS HE WENT TO URGENT CARE RECOMMENDED AFTER LAST PT VISIT. HE REPORTS URGENT CARE SENT HIM TO THE ED AND THE ED CHECKED HIM OUT AND DISCHARGED HIM BUT BEFORE LEAVING HE HAD AN EPISODE OF DIZZINES AND THEY ADMITTED HIM TO THE HOSPITAL FROM TO WEDNESDAY FOR MORE TESTING. FOLLOW UP PENDING WITH PAULINE DUNCAN NEXT WEDNESDAY. PATIENT REPORTS HIS TEST RESULTS ALL CAME OUT OK. HAD PT WEDNESDAY AND WEDNESDAY. HE REPORTS HE WALKED IN THE ROOM A LITTLE BIT WEDNESDAY AND WEDNESDAY WENT UP AND DOWN THE STEPS IN THE THERAPY ROOM - NO OTHER EX. HE REPORTS HE IS FEELING A LOT BETTER NOW. HE REPORTS HE HAS NECK PAIN 6/10 AND HE STILL HAS THE PAIN IN HIS R SIDE 10. HE REPROTS THE NECK PAIN STARTED WHEN HE STARTED GETTING SICK A COUPLE WEEKS AGO AND LYING DOWN ON A PILLOW INCREASES HIS NECK PAIN. (NECK FUSION BY DR. SINGLETON ABOUT 6 YEARS OR SO AGO). STATES HE IS NO LONGER HAVING DIZZINESS AND AND IS NOT SEEING FLASHES OR HAVING TROUBLE WITH HIS EYE SIGHT. REPORTS HE HAS BEEN MONITORING HIS BLOOD SUGAR CLOSE AND IT HAS BEEN GOOD SINCE DISCHARGE FROM THE HOSPITAL. Objective/Function: PATIENT WAS SEEN TODAY FOR RE-ASSESSMENT OF PROGRESS TOWARD THE SET PT GOALS AND THE NEED FOR FURTHER PHYSICAL THERAPY VS READINESS FOR DISCHARGE. PATIENTS HOSPITAL DISCHARGE PAPERS SAY TO RESUME NORMAL ACTIVITY AND FOLLOW UP WITH PCP IN 1-2 WEEKS. PATIENT DENIES BEING GIVEN ANY RESTRICTIONS UPON DISCHARGE FROM THE HOSPITAL. THIS PATIENT WAS PROGRESSING NICELY WITH PHYSICAL THERPAY AND WORKING TOWARD INDEP GYM AND HOME EX PROGRRAMS BEFORE HE GOT SICK ABOUT 2 WEEKS AGO. OVER-ALL HIS STRENGTH AND ENDURANCE IS PLATEAUING. HE IS INDEP WITH BOTH LAND AND GYM EX' PROGRAMS AND APPROPRIATE FOR DISCHARGE TO INDEP EX AT THIS TIME. PATIENT REPORTS HE WANTS TO GO BACK TO WORK AND MAY BENEFIT FROM A FUNCTIONAL CAPACITY ASSESSMENT. HIS LAST EX SESSION WAS 10/30/21 AND INCLUDED THE FOLLOWING: Gym Program - indep before session: Recumbent Bike: L6 x10 min to increase CV and LE endurance (part monitor for set- up/intake). Seated Back Extension (16): 70# 2x10 (foot bar 4, back pad rotation 3). Seated Leg Press (5): 130# 2x10 (foot plate 4, seat back 3). Seated Hip Abduction (4): 60# 2x10 (push apart). Seated Hip Adduction (13): 60# 2x10 (squeeze together). Seated Leg Curl (20): 65# 2x10 (back pad and calf pad #3). Seated Knee Extension (19): 50# 2x10 (back pad 3). Standing Glute/Ham Press (14): 45# 2x10 ea leg (chest pad 6). Standing Rows (9): 50# 2x10 (2-handled attachment at chest height). Seated Pulldowns (24): 50# 2x10. Calf Slant Stretch: 3x30 sec. Balance and Functional Activities. Static Stand Balance with EC on floor: 2x30 sec NBOS. Static Stand Balance with EC on foam: 2x30 sec normal GUILLE. Rocker Balance: 2x1 min (for weight shifting speed/recovery with fixed excursion). Lateral Stepping w/ metronome (speed of direction change): 3 dots at 90,100,110spm x1 min ea. Fwd/Bwd Stepping w/ metronome (speed of direction change): 2 fwd dots at 90-95 spm 3x1 min. Kneel to Stand: 2x10 each side 2UE (to help simulate RTW duties). Stairs: 2 flights-1HR/offset 15# x1 lap ea arm and x1 lap (1)15# w/both arms. Sit to Stand with OH Press: 20#kb 3x12. Timed Ambulation: 340ft (one inside lap) x2 (1'12, 1'08). Sled Push/Pull: 30ft/180# x6 laps. 3-way Foam/NBOS Tramp Toss/Catch: 6# x30 ea way (for dynamic weight shifting speed/recovery). Balance Activities (not done today). 3- way Step + Recover: 2x10 each. Jennifer Step-overs: Five 12 3-4 laps F/L. UPON EXAM TODAY: SLS BRICE LE'S - > 30 SEC. Motor deficit: BRICE LE STRENGTH IS 5/5 WITH MMT'ING TODAY. Sensory deficit: BRICE LE LIGHT TOUCH SENSATION IS INTACT AND SYMMETRICAL AND NO C/O TENDERNESS WITH TESTING. ROM deficit: PATIENT HAS TIGHT BRICE HIP FLEXORS, KNEE FLEX AND EXTENSION AND ANKLE PLANTAR FLEXORS. Dural Signs: NEGATIVE BRICE LE'S. Lumbar mvmt loss: flex - MIN TO MOD. ext - MOD. R SG - MOD. L SG - MOD. Core strength: FAIR. TUG TIME: 9.69 SEC. 30 SEC SIT TO STAND TEST = 10 REPS. O2 PRIOR TO SESSION TESTING 96% WITH HR 79 BPM. O2 IMMEDIATELY AFTER SIT TO STAND TEST 97% WITH HR 93 BPM Plan Plan: RECOMMEND PHYSICIAN FOLLOW UP, FUNCTIONAL CAPACITY ASSESSMENT AND DISCHARGE FROM FORMAL PHYSICAL THERAPY TO INDEP EX PROGRAM. Balance/Gait/Functional tests - Balance/Special Test Scores Functional Gait Assessment Score: 25 % Disability: 16.6700 Lower Extremity Functional Score: 51 Goals Goal 1:: PATIENT WILL BE INDEP AND SAFE WITH GAIT ON ALL SURFACES WITH LEAST ASSISTIVE DEVICE AND DEVIATIONS. Goal Time Frame: 6-8 Weeks Goal Progress: Goal Met Goal 2:: INCREASE FUNCTIONAL ROM OF TRUNK AND BRICE LE'S TO EASE ADL'S. Goal Time Frame: 6-8 Weeks Goal Progress: Not Progressing Goal 3:: INCRASE FUNCTIONAL STRENGTH OF TRUNK AND LE'S TO EASE ADL'S Goal Time Frame: 6-8 Weeks Goal Progress: Goal Met Goal 4:: PATIENT WILL BE INDEP WITH A HEP FOR CONTINUED IMPROVEMENT ONCE FORMAL PHYSICAL THERAPY CONCLUDES. Goal Time Frame: 6-8 Weeks Goal Progress: Goal Met Anticipated Interventions Patient/Client Instruction: Educate patient on: Condition, Plan of Care, Risk Factors, Benefits of Fitness Program For the Purpose of:: To improve self management Therapeutic Exercise to Include: Strength training, Endurance training, Body mechanics, Postural training, Flexibilty training, Gait and locomotor training, Neuromotor development, In an aquatic setting, Dynamic Lumbar Stabilization For the Purpose of:: To improve muscle performance and motor function, To increase tolerance to activity/condition/position, To improve ability of physical actions for home/community/work/leisure, To improve gait and locomotor functions Please do not hesitate to contact me at [phone] by phone or Fax: if you have questions or concerns regarding this new plan of care! Sincerely, Eden Flowers, PT, Cert MDT
--- NOTE | 2022-01-09 10:31 | HP.PTREVAL ---
VANITA ALEX, It has been my pleasure to treat ASHWINI HAYES over the last 44 visits for COVID RESPIRATORY DISTRESS SYNDROME. Please see the progress note below for an update on the physical therapy plan of care! Subjective: STATES HE HAD A FOLLOW UP WITH YARITZA DE LA TORRE LAST WEDNESDAY ABOUT GOING BACK TO WORK. WENT OF FCE. PATIENT REPORTS THAT GOING OVER THAT HE WILL NOT LET HIM GO BACK AT THIS TIME AND HAS HIM OFF TILL February. PATIENT REPORTS YARITZA AMAURI SAID HE NEEDS MORE PHYSICAL THERAPY. PATIENT REPORTS HE HAS BEEN OFF BALANCE THE LAST TWO WEEKS FOR NO APPARENT REASON. DENIES HAVING ANY FALLS. 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 PATIENT REPORTS HE FEELS HE HAS TAKEN A COUPLE STEPS BACKWARDS IN TERMS OF STRENGTH AND BALANCE FOR NO APPARENT REASON. STATES HE CAN ONLY WORK FOR A FEW HOURS THEN HE BECOMES MORE OFF BALANCE AND TOO TIRED TO CONTINUE WITHOUT SITTING DOWN FIRST. STATES HE CAN ONLY WORK A COUPLE HOURS BEFORE NEEDING TO REST. REPORTS HE DID NOT JOIN A GYM AFTER DISCHARGE FROM PT 11/19/21 AND STATES HE HONESTLY CAN NOT REMEMBER WHY HE DID NOT CONTINUE THE EX'S. PATIENT REPORTS HIS GOAL FOR THERAPY THIS TIME IS TO GET ALL OF HIS STRENGTH AND BALANCE BACK. PATIENT REPORTS HE WAS PUSHED HARD IN PT LAST TIME AND IT WAS GREAT. AND IF HE CAN BE PUSHED EVEN HARDER THAT WOULD BE GREAT. PATIENT REPORTS HIS FAMILY AND YARITZA MARTINEZON RECOMMEND PERM. DISABILITY BUT HE IS AGAINST IT. PATIENT REPORTS HE PREFERS TO BE INSTRUCTED IN A GYM PROGRAM VS HOME PROGRAM ALONE AND FEELS HE NEEDS TO JOIN A GYM AFTER PT TO GET BETTER. FCE COMPLETED AT [facility] SINCE LAST PT VISIT. CURRENTLY STILL IN SPEECH THERAPY. Objective/Function: PATIENT WAS SEEN TODAY FOR RE-ASSESSMENT OF PROGRESS TOWARD THE SET PT GOALS AND THE NEED FOR FURTHER PHYSICAL THERAPY VS READINESS FOR DISCHARGE. THIS PATIENT WAS PROGRESSING NICELY WITH PHYSICAL THERPAY AND WORKING TOWARD INDEP GYM AND HOME EX PROGRAMS BEFORE HE GOT SICK TOWARD THE END OF OCT 2021. OVER-ALL HIS STRENGTH AND ENDURANCE WAS PLATEAUING. HE WAS INDEP WITH BOTH LAND AND GYM EX' PROGRAMS AND APPROPRIATE FOR DISCHARGE TO INDEP EX AT THAT TIME. PATIENT REPORTS HE HAS NOT EXERCISED SINCE HIS LAST EX SESSION WITH US 10/30/21 AND INCLUDED THE FOLLOWING: Gym Program - indep before session: Recumbent Bike: L6 x10 min to increase CV and LE endurance (part monitor for set-up/intake). Seated Back Extension (16): 70# 2x10 (foot bar 4, back pad rotation 3). Seated Leg Press (5): 130# 2x10 (foot plate 4, seat back 3). Seated Hip Abduction (4): 60# 2x10 (push apart). Seated Hip Adduction (13): 60# 2x10 (squeeze together). Seated Leg Curl (20): 65# 2x10 (back pad and calf pad #3). Seated Knee Extension (19): 50# 2x10 (back pad 3). Standing Glute/Ham Press (14): 45# 2x10 ea leg (chest pad 6). Standing Rows (9): 50# 2x10 (2-handled attachment at chest height). Seated Pulldowns (24): 50# 2x10. Calf Slant Stretch: 3x30 sec. Balance and Functional Activities. Static Stand Balance with EC on floor: 2x30 sec NBOS. Static Stand Balance with EC on foam: 2x30 sec normal GUILLE. Rocker Balance: 2x1 min (for weight shifting speed/recovery with fixed excursion). Lateral Stepping w/ metronome (speed of direction change): 3 dots at 90,100,110spm x1 min ea. Fwd/Bwd Stepping w/ metronome (speed of direction change): 2 fwd dots at 90-95 spm 3x1 min. Kneel to Stand: 2x10 each side 2UE (to help simulate RTW duties). Stairs: 2 flights-1HR/offset 15# x1 lap ea arm and x1 lap (1)15# w/both arms. Sit to Stand with OH Press: 20#kb 3x12. Timed Ambulation: 340ft (one inside lap) x2 (1'12, 1'08). Sled Push/Pull: 30ft/180# x6 laps. 3-way Foam/NBOS Tramp Toss/Catch: 6# x30 ea way (for dynamic weight shifting speed/recovery). Balance Activities (not done today). 3-way Step + Recover: 2x10 each. Jennifer Step-overs: Five 12 3-4 laps F/L. UPON EXAM TODAY: SLS: RLE 10 SEC, LLE 5 SEC. Motor deficit: BRICE LE STRENGTH IS 5/5. ROM deficit: PATIENT HAS TIGHT BRICE HIP FLEXORS, KNEE FLEX AND EXTENSION AND ANKLE PLANTAR FLEXORS. Dural Signs: NEGATIVE BRICE LE'S. Lumbar mvmt loss: flex - MIN TO MOD. ext - MOD. R SG - MOD. L SG - MOD. Core strength: FAIR. TUG TIME: 12.52 SEC. 30 SEC SIT TO STAND TEST = 6 REPS (BRICE UE ASSIST). PATIENT IS ABLE TO INDEP'LY TOE WALK AND HEEL WALK BUT SEVERAL ATTEMPS NEEDED TO HEEL WALK. BALANCE, TUG TEST AND 30 SEC SIT TO STAND TEST HAVE ALL WORSENED SINCE LAST VISIT. Plan Plan: PT 3X'S A WK X 12 VISIT THIS POC FOR STRENGTH/BALANCE WITH. GRADUAL AND SAFE RETURN TO PRIOR EX ROUTINE TOLERATED/INDICATED TO HELP WITH PATIENT GOAL OF RETURN TO WORK. ENCOURAGE SAFE INDEP EX COMPLIANCE. PATIENT AGREEABLE TO THIS POC WITH GOAL OF TRANSITION TO INDEP SAFE EX PROGRAM AFTER THESE SESSIONS. Balance/Gait/Functional tests - Balance/Special Test Scores Functional Gait Assessment Score: 25 % Disability: 16.6700 Lower Extremity Functional Score: 51 Goals Goal 1:: PATIENT WILL BE INDEP AND SAFE WITH GAIT ON ALL SURFACES WITH LEAST ASSISTIVE DEVICE AND DEVIATIONS. Goal Time Frame: 6-8 Weeks Goal Progress: Goal Met Goal 2:: INCREASE FUNCTIONAL ROM OF TRUNK AND BRICE LE'S TO EASE ADL'S. Goal Time Frame: 6-8 Weeks Goal Progress: Not Progressing Goal 3:: INCRASE FUNCTIONAL STRENGTH OF TRUNK AND LE'S TO EASE ADL'S Goal Time Frame: 6-8 Weeks Goal Progress: Goal Met Goal 4:: PATIENT WILL BE INDEP WITH A HEP FOR CONTINUED IMPROVEMENT ONCE FORMAL PHYSICAL THERAPY CONCLUDES. Goal Time Frame: 6-8 Weeks Goal Progress: Goal Met Anticipated Interventions Patient/Client Instruction: Educate patient on: Condition, Plan of Care, Risk Factors, Benefits of Fitness Program For the Purpose of:: To improve self management Therapeutic Exercise to Include: Strength training, Endurance training, Body mechanics, Postural training, Flexibilty training, Gait and locomotor training, Neuromotor development, In an aquatic setting, Dynamic Lumbar Stabilization For the Purpose of:: To improve muscle performance and motor function, To increase tolerance to activity/condition/position, To improve ability of physical actions for home/community/work/leisure, To improve gait and locomotor functions Please do not hesitate to contact me at [phone] by phone or if you have questions or concerns regarding this new plan of care! Sincerely, Eden Flowers PT, Cert MDT
--- NOTE | 2022-01-29 12:53 | HP.SP.REEV ---
History - History Date of Eval: 07/15/21 Medical Diagnosis (from RX): covid resp distress synd. RX HERE Previous speech therapy: Yes Results: Patient was receiving speech services at [facility] 5x/wk targetting attention, memory and executive functions. 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 Patients Living Arrangements: With Significant Other Patient Allergies - Allergies Allergies Iodinated Contrast Media [CT] Allergy (Verified 05/09/21 10:41) Rash iohexol [From Omnipaque] Allergy (Verified 05/09/21 10:41) Rash Previous/Current Goals - Goals 1-5 Previous Goal #1: Patient will utilize compensatory executive functioning / processing strategies identified and implemented during structured therapeutic tasks (i.e., note taking / list making, adhering to schedules, remove distractions, formulate a plan, double check work, talk out loud, etc.) to facilitate improved cognitive processing and achievement of the highest level of safe, independent functioning with 90% accuracy when given minimal cues. Previous Goal #2: Patient will utilize both internal and external memory strategies as needed (note taking, paraphrasing, repeating), with minimal cues to facilitate encoding and retrieval of information for improved functional independence upon return to home/community at discharge. Previous Goal #3: Patient will demonstrate reading comprehension at the short paragraph level auditorily presented w/ 80% accuracy. Previous Goal #4: . Previous Goal #5: . CLQT - CLQT CLQT Administered: Yes CLQT: Cognitive Linguistic Quick Test (CLQT) is a criterion - referenced assessment designed for adults between the ages of 18 and 89 with known or suspected neurological dysfuntions. The CLQT is to assess strength and weaknesses in five cognitive domains. Severity ratings are within normal limits, mild, moderate, severe deficits. The subtests are as follows: Date: 01/29/22 - Attention Attention: WNL - Memory Memory: Mild - Executive Functions Executive Functions: WNL - Language Language: Mild - Visuospatial Skills Visuospatial Skills: WNL - Composite Severity Rating Composite Severity Rating: WNL - Clock Drawing Severity Rating Clock Drawing Severity Rating: WNL CLQT Re-Eval - Testing Results CLQT Test Comparison: Patient w/ significant progress compared to initial evaluation (July 2021). Patient was re-assessed September 2021 w/ severity rating improving to MILD impairment across 5 cognitive domains re: attn, memory, executive function, language and visuospatial. Patient was re-assessed at this date to determine progress and further need for speech therapy. Patient demonstrated improvement across 5 cognitive domains w/ improving to WNL in 4/5 domains. Patient slightly improved from a score 189 to 191 in memory - which is still classified as MILD impairment. Therapist is discharging patient as this date from ST w/ pt. to utilize prev. trained strategies outside of ST. Patient has follow-up appt. w/ . to determine if patient is able to return to work end of February 2022. Recommended patient to follow-up w/ speech therapy if cognitive condition worsens. Patient is concerned about returning to work and is unsure if he feels confident to do so mentally and physically. Patient is currently seeing PT for 4 weeks and will continue [facility] program. Patient was already d/c'd from PT w/ [facility] program and did not participate. Patient scored WNL as a composite score during this assessment - however pt. continues to report occasional occurrences of confusion / impaired memory. Patient provided extensive education on external and internal strategies to improve memory as well as Spoon Theory to determine cognitive load / cognitive fatigue throughout the day. Patient verbally demonstrated understanding of education. NQOL - In past 7 days I had to read something several times to understand it: Very often (several times a day) My thinking was slow: Very often (several times a day) I had to work really hard to pay attention or i would make a mistake: Often (once a day) I had trouble concentrating: Very often (several times a day) - How much DIFFICULTY do you currently reading & following complex instructions (e.g. directions for new medication: A lot planning for & keeping appts that are not part of weekly routine: None managing your time to do most of your daily activities: Somewhat learning new tasks or instructions: A little - Neuro-QOL Score Raw Score: 19 T - Score: 34.0 Plan - Recommendations MBS: No Treatment Warranted: No - Goals that are Established Determination:: Goals will be added/modified as deemed necessary and appropriate. Therapy will be discontinued when results of re-evaluation indicate therapy is no longer needed or lack of progress has been documented. - Goal #1-5 Goal #1: Patient will utilize compensatory executive functioning / processing strategies identified and implemented during structured therapeutic tasks (i.e., note taking / list making, adhering to schedules, remove distractions, formulate a plan, double check work, talk out loud, etc.) to facilitate improved cognitive processing and achievement of the highest level of safe, independent functioning with 90% accuracy when given minimal cues. Goal #2: Patient will utilize both internal and external memory strategies as needed (note taking, paraphrasing, repeating), with minimal cues to facilitate encoding and retrieval of information for improved functional independence upon return to home/community at discharge. Goal #3: Patient will demonstrate reading comprehension at the short paragraph level auditorily presented w/ 80% accuracy. Goal #4: . Goal #5: . Education - Patient Instruction Patient Education: Treatment Plan, Goals Person Taught: Patient Teaching Method: Discussion Response to teaching: Return demonstration, Verbalize understanding
--- NOTE | 2022-02-06 08:52 | HP.PTDCSUM ---
It has been my pleasure to treat ASHWINI HAYES referred by VANITA ALEX, with the diagnosis of COVID RESPIRATORY DISTRESS SYNDROME for a total of 55 visit(s). Discharge Date: Please see the following information for a summary of their discharge status. Subjective: MY STRENGTH IS GETTING A LITTLE BETTER . HE REPORTS HE HAS BEEN WORKING ON HIS BALANCE BUT IT IS NOT GETTING BETTER. FOLLOW UP WITH [facility] PENDING MARCH 02 2022. REPORTS HE IS PLANNING TO GET A HP MEMBERSHIP TODAY TO CONTINUE INDEP EX. HEADACHE Pain Intensity (Out of 10): 0 GENERALIZED BODY PAIN Pain Intensity (Out of 10): 7 RIGHT SIDE PAIN Pain Intensity (Out of 10): 6 NECK PAIN Pain Intensity (Out of 10): 0 KNEES Pain Intensity (Out of 10): 8 BACK PAIN Pain Intensity (Out of 10): 9 % Improvement: 60 Objective/Function: PATIENT WAS SEEN TODAY FOR RE-ASSESSMENT OF PROGRESS TOWARD THE SET PT GOALS AND THE NEED FOR FURTHER PHYSICAL THERAPY VS READINESS FOR DISCHARGE. PATIENT HAS BEEN WORKING TOWARD INDEP EX PROGRAM OVER THE LAST MONTH WITH US AND IS APPROPRIATE TO DISCHARGE TO INDEP EX AT THIS TIME. OVER-ALL HIS STRENGTH AND ENDURANCE IS IMPROVING SLOWLY AT THIS TIME. HIS LAST EX SESSION WITH US YESTERDAY 02/05/22 AND INCLUDED THE FOLLOWING: Recumbent Bike: L6 x5' - aerobic conditioning and endurance (mostly indep, some with intake). Back Extension (16): 50# 3x12 - foot bar 4, back pad rotation 4. Leg Press (5): 80# 3x12- Sled 4/Seat 3. Seated Hip Abd (4): 45# 3x12. Seated Leg Curl (20): 45# 3x12 - back pad and calf pad 3. Seated Row (25): 40# 3x12 - chest pad 4. Lat Pulldown (24): 35# 3x12. Chest Press (30): 10# 3x12. Incline Stretch: 3x60 seconds. Box HS Stretch: 2x60 seconds ea side. *Balance work: Rocker Balance Lateral and Fwd/Bwd: 2x1 min ea. Step-up w/BOSU: 1x15 ea side 0-1UE (few second bilat balance at the top). Lateral Step Up and Overs w/BOSU: 1x15 ea side 1UE. UPON EXAM TODAY: SLS: RLE 9 SEC, LLE 7 SEC. Motor deficit: BRICE LE STRENGTH IS 5/5. ROM deficit: PATIENT HAS TIGHT BRICE HIP FLEXORS, KNEE FLEX AND EXTENSION AND ANKLE PLANTAR FLEXORS. Dural Signs: NEGATIVE BRICE LE'S. Lumbar mvmt loss: flex - MIN TO MOD. ext - MOD. R SG - MOD. L SG - MIN. Core strength: FAIR. TUG TIME: 11.36. 30 SEC SIT TO STAND TEST = 8 REPS (BRICE UE ASSIST). PATIENT IS ABLE TO INDEP'LY TOE WALK AND HEEL WALK BUT SEVERAL ATTEMPS NEEDED TO HEEL WALK. BALANCE, TUG TEST AND 30 SEC SIT TO STAND TEST HAVE BOTH IMPROVED SINCE LAST RE-CHECK BUT LEFS SCORE HAS FURTHER WORSENED BY 7 MORE POINST FOR A TOTAL OF 18 POINTS SINCE 11/19/21. Goal 1:: PATIENT WILL BE INDEP AND SAFE WITH GAIT ON ALL SURFACES WITH LEAST ASSISTIVE DEVICE AND DEVIATIONS. Goal Progress: Goal Met Goal 2:: INCREASE FUNCTIONAL ROM OF TRUNK AND BRICE LE'S TO EASE ADL'S. Goal Progress: Not Progressing Goal 3:: INCRASE FUNCTIONAL STRENGTH OF TRUNK AND LE'S TO EASE ADL'S Goal Progress: Goal Met Goal 4:: PATIENT WILL BE INDEP WITH A HEP FOR CONTINUED IMPROVEMENT ONCE FORMAL PHYSICAL THERAPY CONCLUDES. Goal Progress: Goal Met Plan: D/C TO INDEP GYM EX PROGRAM. PATIENT IS AGREEABLE. If there are questions or concerns regarding this patient's physical therapy, please feel free to call me at [phone]. Thank you for the referral of this patient. Sincerely, Eden Flowers, PT, Cert MDT Balance/Gait/Functional tests - Balance/Special Test Scores Functional Gait Assessment Score: 25 % Disability: 16.6700 Lower Extremity Functional Score: 33
== END 2022-02-06 09:56 | disposition home or self-care (01) ==
LOC: PT 08:00
PROVIDERS: PCP Family Medicine
DX: U09.9 Post COVID-19 condition, unspecified; R53.1 Weakness
CPT/HCPCS: 92507; 97110; 97129; 97130; 97162; 97164; 97166; 97530; 97750

== ENCOUNTER 2022-02-20 12:12 | Emergency (ER) | payer BC, SELFPAY ==
[2022-02-20 12:13] VITALS: BP 175/114; PULSE 74; RESP 18; TEMP 36.6; O2SAT 99; BMI 33.3
[2022-02-20 12:26] VITALS: BP 158/102; PULSE 98; RESP 18; O2SAT 98
--- NOTE | 2022-02-20 12:30 | EDS_ITS ---
HPI <MUSA Lane - Last Filed: 02/20/22 14:12> History of Present Illness Chief Complaint: Hyperglycemia Narrative Narrative: 61-year-old male with history of diabetes, chronic back pain, TIA presents to the emergency department with elevated blood sugar. Patient states for the last 3 to 4 days, he has not felt well, he has had a cough, generalized abdominal pain which is chronic. Patient states that yesterday he was felt weak, frequent urination, blurred vision, he states that his blood sugar has been reading high on his monitor all day yesterday. Patient currently uses Humalog 12 units 3 times a day as well as Lantus at night. He denies any recent antibiotic, prednisone use. He states that he is felt so weak today and is here for evaluation. 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 hauler Diabetes Diabetes mellitus type 2 in obese Grade II diastolic dysfunction Hyperlipidemia Iron deficiency anemia Pulmonary embolism TIA (transient ischemic attack) Medical History unable to obtain Home Medications amlodipine 10 mg PO DAILY 12/29/17 [History Last Taken 11/14/21 10:00] metformin 2,000 mg PO DAILY 01/20/21 [History Last Taken 11/14/21 10:00] atorvastatin 40 mg PO QHS 04/15/21 [History Last Taken 11/13/21 21:00] bupropion HCl 150 mg PO DAILY 04/15/21 [History Last Taken 11/14/21 10:00] insulin glargine [Lantus Solostar U-100 Insulin] 30 unit SUBCUT QHS 04/15/21 [History Last Taken 11/13/21 22:00] zolpidem 10 mg PO QHS PRN 04/15/21 [History Last Taken 11/13/21 22:00] duloxetine 30 mg PO DAILY 09/05/21 [History Last Taken 11/14/21 10:00] hydrochlorothiazide 25 mg PO DAILY 09/05/21 [History Last Taken 11/14/21 10:00] insulin lispro [Humalog KwikPen Insulin] 12 unit SUBCUT TIDCM 12/24/21 [History Last Taken 11/14/21 09:00] metoprolol tartrate 50 mg PO BID 09/05/21 [History Last Taken 11/14/21 10:00] tamsulosin 0.4 mg PO QHS 09/05/21 [History Last Taken 11/13/21 22:00] Allergy/AdvReac Type Severity Reaction Status Date / Time Iodinated Contrast Media [CT] Allergy Rash Verified 02/20/22 12:13 iohexol [From Omnipaque] Allergy Rash Verified 02/20/22 12:13 Family History Mother Brain aneurysm age 65 with ruptured aneurysm. Father Diabetes Surgical History History of appendectomy History of back surgery History of knee joint replacement History of tonsillectomy Surgical History unable to obtain Social History household members: spouse Smoking Status: Never smoker alcohol intake: never substance use type: does not use ROS <Og Smith NP-Darrian - Last Filed: 02/20/22 14:12> ROS ED ROS Narrative Constitutional: Negative for fever, chills, weight loss. Positive generalized weakness Eyes: Negative for vision loss, double vision. Positive for blurry vision ENT: Negative for any sore throat, ear pain, congestion Cardiovascular: Negative for any chest pain, tightness, palpitations Respiratory: Negative for any sputum production, hemoptysis, dyspnea, dyspnea on exertion, orthopnea. Positive for cough Gastrointestinal: Negative for any vomiting, diarrhea, constipation, blood in stool, blood in vomit. Positive abdominal pain, nausea : Negative for any dysuria, retention, blood in urine. Positive for urinary frequency Muscle skeletal: Negative for any muscle joint pain, stiffness, arthralgias, neck pain, back pain. Positive for myalgias Neurological: Negative for any headache, syncope, numbness or tingling, dizziness Skin: Negative for any rashes, lumps, itching, abrasions, lacerations Psychiatric: Negative for any depression, anxiety, stress, suicidal ideation, homicidal ideation Hematologic: Negative for any easy bruising, excessive bruising, easy bleeding Allergies: Negative for any eczema, hives, rash EXAM <MUSA Lane - Last Filed: 02/20/22 14:12> Physical Exam Narrative Exam Narrative: Vital signs reviewed. Alert and orient x4, vital signs are stable. HEET: Head normocephalic atraumatic, TMs clear bilaterally. Posterior pharynx is clear, dry mucous membranes. Nares clear bilaterally. Neck: Supple with no lymphadenopathy or tenderness. No signs of meningismus, negative jolt sign. Cardiac: Regular rate and rhythm no murmurs gallops or rubs, equal peripheral pulses bilaterally. Respiratory: Lungs clear to auscultation bilaterally. No chest tenderness. Abdomen: Soft, nondistended. No abdominal bruit or pulsatile masses. No hepatosplenomegaly. Patient has tenderness throughout abdominal exam, this is chronic. Extremities: No peripheral edema, no signs of gross trauma or deformity. Active full range of motion of all extremities. Neuro: Cranial nerves II through XII intact, no focal neurological deficits. Skin: Clean dry and intact with no rash, purpura, petechiae, vesicles or pustules. Backs/flank: No CVA tenderness, no midline spinal tenderness, no deformity. Psych: Normal mood and affect. No SI, HI or acute psychosis. Const Vital Signs: 02/20/22 12:13 02/20/22 12:26 02/20/22 13:37 Temperature 97.9 F Temperature Source Temporal Pulse Rate 74 98 Respiratory Rate 18 18 Respiratory Effort Normal Non-Labored Respiratory Pattern Normal Blood Pressure 175/114 H 158/102 H Blood Pressure Mean 134 120 Pulse Ox 99 98 Oxygen Delivery Method Room Air Room Air 02/20/22 14:04 Temperature Temperature Source Pulse Rate 65 Respiratory Rate 18 Respiratory Effort Respiratory Pattern Blood Pressure 135/86 H Blood Pressure Mean 102 Pulse Ox 97 Oxygen Delivery Method Room Air Positive well nourished, well developed and obese General Appearance ED: well developed Nutritional Appearance: obese <Dr. Feng Turner DO - Last Filed: 02/20/22 18:11> Physical Exam Const Vital Signs: 02/20/22 12:13 02/20/22 12:26 02/20/22 13:37 Temperature 97.9 F Temperature Source Temporal Pulse Rate 74 98 Respiratory Rate 18 18 Respiratory Effort Normal Non-Labored Respiratory Pattern Normal Blood Pressure 175/114 H 158/102 H Blood Pressure Mean 134 120 Pulse Ox 99 98 Oxygen Delivery Method Room Air Room Air 02/20/22 14:04 Temperature Temperature Source Pulse Rate 65 Respiratory Rate 18 Respiratory Effort Respiratory Pattern Blood Pressure 135/86 H Blood Pressure Mean 102 Pulse Ox 97 Oxygen Delivery Method Room Air [facility] <Og Smith NP-C - Last Filed: 02/20/22 14:12> [facility] Narrative Medical decision making narrative: Patient appears well, patient appears nontoxic, vital signs are stable. Patient presents to the emergency department with concerns of DKA, hyperglycemia with a high reading at home. Patient did receive a full hyperglycemia work-up here in the emergency department. Patient also complained of a cough as well. Patient's laboratories show a normal CBC, patient's chemistries show hyponatremia with a sodium of 132, patient's blood sugar was 298, alkaline phosphatase was slightly elevated 150. Patient lipase was normal. Patient's acetone level was negative. Patient's lactic acid level was negative. Patient is currently not in diabetic ketoacidosis. Patient did receive a chest x-ray which was read by her ER attending as negative. Patient's COVID-19, influenza were negative. Urinalysis showed glucose however no ketones, no bacteria. Patient was given 1 L normal saline as well as 10 units of IV insulin. He is instructed to check his sugars regularly tonight and to continue his medication regimen. Patient will follow up with his PCP as instructed for discharge. Patient also had a VBG which was negative. Patient stable for discharge Lab Data Labs: Laboratory Results - last 24 hr 02/20/22 02/20/22 02/20/22 12:45 12:45 12:45 WBC 9.2 RBC 5.81 Hgb 16.7 H Hct 48.5 MCV 83.5 MCH 28.7 MCHC 34.4 RDW Std Deviation 36.7 RDW Coeff of Melanie 12.1 Plt Count 309 MPV 10.0 Immature Gran % (Auto) 0.200 Neut % (Auto) 58.0 Lymph % (Auto) 32.5 Hudson % (Auto) 7.1 Eos % (Auto) 1.8 Baso % (Auto) 0.4 Absolute Neuts (auto) 5.3 Absolute Lymphs (auto) 2.99 Nucleated RBC % 0 Sodium 132 L Potassium 4.4 Chloride 97 L Carbon Dioxide 28.0 Anion Gap 7 BUN 13 Creatinine 1.09 Estim Creat Clear Calc 83.79 Est GFR (MDRD) Af Amer 89 Est GFR (MDRD) Non-Af 73 BUN/Creatinine Ratio 11.9 Glucose 298 H Lactic Acid 1.7 Calcium 9.4 Total Bilirubin 0.70 AST 12 L ALT 35 Alkaline Phosphatase 150 H Total Protein 7.5 Albumin 3.6 Globulin 3.9 Albumin/Globulin Ratio 0.9 Lipase 74 Urine Color Urine Clarity Urine pH Ur Specific [place] Urine Protein Urine Glucose (UA) Urine Ketones Urine Occult Blood Urine Nitrite Urine Bilirubin Urine Urobilinogen Ur Leukocyte Esterase Urine RBC Urine WBC Ur Squamous Epith Cells Urine Bacteria Urine Mucus Acetone Level POC Glucose 02/20/22 02/20/22 02/20/22 12:45 13:30 14:01 WBC RBC Hgb Hct MCV MCH MCHC RDW Std Deviation RDW Coeff of Melanie Plt Count MPV Immature Gran % (Auto) Neut % (Auto) Lymph % (Auto) Hudson % (Auto) Eos % (Auto) Baso % (Auto) Absolute Neuts (auto) Absolute Lymphs (auto) Nucleated RBC % Sodium Potassium Chloride Carbon Dioxide Anion Gap BUN Creatinine Estim Creat Clear Calc Est GFR (MDRD) Af Amer Est GFR (MDRD) Non-Af BUN/Creatinine Ratio Glucose Lactic Acid Calcium Total Bilirubin AST ALT Alkaline Phosphatase Total Protein Albumin Globulin Albumin/Globulin Ratio Lipase Urine Color Yellow Urine Clarity Clear Urine pH 6.0 Ur Specific [place] 1.015 Urine Protein Negative Urine Glucose (UA) 1000 H Urine Ketones Negative Urine Occult Blood Negative Urine Nitrite Negative Urine Bilirubin Negative Urine Urobilinogen Normal Ur Leukocyte Esterase Negative Urine RBC 0 SEEN Urine WBC 0 SEEN Ur Squamous Epith Cells 0-5 SEEN Urine Bacteria 0 SEEN Urine Mucus 0 SEEN Acetone Level NEGATIVE POC Glucose 251 H ABG Data ABG results: ABG 02/20/22 12:58 Specimen Type GIOVANNI VBG pH 7.40 VBG pO2 64 H VBG HCO3 25 VBG Total CO2 26 VBG O2 Sat (Calc) 92 H VBG Base Excess 0 POC Mix VBG pCO2 Pt Tmp 39.5 L Radiography Chest X-Ray - ED: 1 View Diagnostic Testing: Clinical Impression(s) from Imaging Studies Chest X-Ray 02/20/22 12:57 IMPRESSION: No acute process Electronically Signed: Wicho Orta MD at 13:36 EDT , <Dr. Feng Turner, DO - Last Filed: 02/20/22 18:11> [facility] Narrative Medical decision making narrative: I have personally performed a face to face assessment of the patient and have reviewed the CLARIBEL Note. I performed a substa ntive portion of the visit including all aspects of the following. My butt findings include: History: Patient presents with elevated blood sugars that became worse today. Patient checked his blood sugar at home and his monitor read high. Patient admits to some polyuria and polydipsia. Patient denies any chest pain or shortness of breath. Patient denies any nausea or vomiting. Exam: Vital signs are stable. Patient is afebrile. Patient is in no acute distress. Oral mucosa is pink and moist. Neck is supple. Trachea is midline. There is no JVD. Heart was regular rate and rhythm. Lungs are clear and equal bilateral. Abdomen is soft. Bowel sounds are normal. There is no tenderness. Cranial nerves II through XII are intact. There are no focal motor or sensory deficits. Medical Decision Making: CBC was within normal limits. Comprehensive metabolic profile showed an elevated glucose of 298. Lactate was normal. Lipase was normal. Anion gap was normal. Serum acetone was negative. Urinalysis does not show any evidence of urinary tract infection or hematuria. Portable 1 view chest x-ray was obtained. On my interpretation, lung wade are clear. There is normal cardiac silhouette. Bony thorax is normal. There is no acute process noted. Radiologist also interpreted the x-ray and agrees. Patient is feeling better on reevaluation. Patient was instructed to follow-up with his primary care physician in 5 to 7 days. Patient understood and was agreeable with plan. All questions were answered. Lab Data Labs: Laboratory Results - last 24 hr 02/20/22 02/20/22 02/20/22 12:45 12:45 12:45 WBC 9.2 RBC 5.81 Hgb 16.7 H Hct 48.5 MCV 83.5 MCH 28.7 MCHC 34.4 RDW Std Deviation 36.7 RDW Coeff of Melanie 12.1 Plt Count 309 MPV 10.0 Immature Gran % (Auto) 0.200 Neut % (Auto) 58.0 Lymph % (Auto) 32.5 Hudson % (Auto) 7.1 Eos % (Auto) 1.8 Baso % (Auto) 0.4 Absolute Neuts (auto) 5.3 Absolute Lymphs (auto) 2.99 Nucleated RBC % 0 Sodium 132 L Potassium 4.4 Chloride 97 L Carbon Dioxide 28.0 Anion Gap 7 BUN 13 Creatinine 1.09 Estim Creat Clear Calc 83.79 Est GFR (MDRD) Af Amer 89 Est GFR (MDRD) Non-Af 73 BUN/Creatinine Ratio 11.9 Glucose 298 H Lactic Acid 1.7 Calcium 9.4 Total Bilirubin 0.70 AST 12 L ALT 35 Alkaline Phosphatase 150 H Total Protein 7.5 Albumin 3.6 Globulin 3.9 Albumin/Globulin Ratio 0.9 Lipase 74 Urine Color Urine Clarity Urine pH Ur Specific [place] Urine Protein Urine Glucose (UA) Urine Ketones Urine Occult Blood Urine Nitrite Urine Bilirubin Urine Urobilinogen Ur Leukocyte Esterase Urine RBC Urine WBC Ur Squamous Epith Cells Urine Bacteria Urine Mucus Acetone Level POC Glucose 02/20/22 02/20/22 02/20/22 12:45 13:30 14:01 WBC RBC Hgb Hct MCV MCH MCHC RDW Std Deviation RDW Coeff of Melanie Plt Count MPV Immature Gran % (Auto) Neut % (Auto) Lymph % (Auto) Hudson % (Auto) Eos % (Auto) Baso % (Auto) Absolute Neuts (auto) Absolute Lymphs (auto) Nucleated RBC % Sodium Potassium Chloride Carbon Dioxide Anion Gap BUN Creatinine Estim Creat Clear Calc Est GFR (MDRD) Af Amer Est GFR (MDRD) Non-Af BUN/Creatinine Ratio Glucose Lactic Acid Calcium Total Bilirubin AST ALT Alkaline Phosphatase Total Protein Albumin Globulin Albumin/Globulin Ratio Lipase Urine Color Yellow Urine Clarity Clear Urine pH 6.0 Ur Specific [place] 1.015 Urine Protein Negative Urine Glucose (UA) 1000 H Urine Ketones Negative Urine Occult Blood Negative Urine Nitrite Negative Urine Bilirubin Negative Urine Urobilinogen Normal Ur Leukocyte Esterase Negative Urine RBC 0 SEEN Urine WBC 0 SEEN Ur Squamous Epith Cells 0-5 SEEN Urine Bacteria 0 SEEN Urine Mucus 0 SEEN Acetone Level NEGATIVE POC Glucose 251 H ABG Data ABG results: ABG 02/20/22 12:58 Specimen Type GIOVANNI VBG pH 7.40 VBG pO2 64 H VBG HCO3 25 VBG Total CO2 26 VBG O2 Sat (Calc) 92 H VBG Base Excess 0 POC Mix VBG pCO2 Pt Tmp 39.5 L Radiography Diagnostic Testing: Clinical Impression(s) from Imaging Studies Chest X-Ray 02/20/22 12:57 IMPRESSION: No acute process Electronically Signed: Wicho Orta MD at 13:36 EDT Reading Location ID and State: [address] [place] [address] , Service support , Discharge Plan Triage Chief Complaint: Hyperglycemia ED Midlevel Provider: Og Smith ED Provider: Feng Turner Dx/Rx/DC Orders Clinical Impression: Acute hyperglycemia Instructions: ED Diabetic Hyperglycemia Prescriptions: No Action amlodipine 10 MG tablet 10 mg PO DAILY RF: 0 metformin 500 mg Tablet 2,000 mg PO DAILY RF: 0 zolpidem 10 mg tablet 10 mg PO QHS PRN (Reason: Insomnia) RF: 0 bupropion HCl 150 mg tablet extended release 24 hr 150 mg PO DAILY RF: 0 insulin glargine [Lantus Solostar U-100 Insulin] 100 unit/mL (3 mL) insulin pen 30 unit SUBCUT QHS RF: 0 atorvastatin 20 MG tablet 40 mg PO QHS RF: 0 hydrochlorothiazide 25 mg tablet 25 mg PO DAILY RF: 0 tamsulosin 0.4 mg capsule 0.4 mg PO QHS RF: 0 metoprolol tartrate 50 mg tablet 50 mg PO BID RF: 0 insulin lispro [Humalog KwikPen Insulin] 100 unit/mL insulin pen 12 unit SUBCUT TIDCM RF: 0 duloxetine 30 mg capsule,delayed release(DR/EC) 30 mg PO DAILY RF: 0 Primary Care Provider: Bella Prince Referrals: Bella Prince PA [Primary Care Provider] - Activity Restrictions/Additional Instructions: Check her sugars more often tonight, continue her medication regimen Print Language: [place] Islander Disposition Disposition: Home, Self Care Discharge Date/Time: 02/20/22 14:30
[2022-02-20] MEDS: 0.9% Normal Saline 1,000 ML 1000 ML IV (12:49)
[2022-02-20] MEDS: Ondansetron 4 MG/2 ML Vial IV (12:49)
--- NOTE | 2022-02-20 12:57 | RAD_ITS ---
STUDY: X-RAY CHEST REASON FOR EXAM: Male, 61 years old. cough TECHNIQUE: Single AP portable view of the chest. COMPARISON: November 14, 2021 FINDINGS: Cervical spine hardware reidentified. The lungs are clear and expanded. There is no demonstrated pleural abnormality. Normal size heart. Normal mediastinum and dain. Normal visualized pulmonary arteries. There is atherosclerotic tortuosity of the aortic arch and descending thoracic aorta. Normal visualized thoracic spine. Normal visualized ribs, clavicles, and shoulders. There is no demonstrated abnormality of the visualized soft tissue structures of the upper abdomen. RAD/Chest 1 View (Portable) IMPRESSION: No acute process Electronically Signed: Wicho Orta MD at 13:36 EDT ,
[2022-02-20 13:00] LABS: Absolute Lymphocyte Count 2.99 X10^3/uL (0.83-4.51); Absolute Neutrophil Count 5.3 X10^3/uL (2.0-7.7); Basophil# 0.04 X10^3/uL; Basophil% 0.4 % (0-1); Eosinophil# 0.17 X10^3/uL; Eosinophils% 1.8 % (0-5); Hematocrit 48.5 % (40-54); Hemoglobin 16.7 g/dL (13.0-16.5); Lymphocyte # 2.99 X10^3/ul (0.83-4.51); Lymphocyte % 32.5 % (19-41); Mean Corp Hgb Conc 34.4 g/dL (32-36); Mean Corpuscular Hgb 28.7 pg (27.0-32.0); Mean Corpuscular Volume 83.5 fL (80-94); Monocyte# 0.65 X10^3/uL; Monocyte% 7.1 % (0-10); NRBC Flagged by Analyzer 0 % (0-5); Neutrophil # 5.34 X10^3/uL (2.7-7.7); Platelet Count 309 K/mm3 (150-450); RBC Distribution Width CV 12.1 % (11.6-14.6); RBC Distribution Width SD 36.7 fl (35.1-43.9); Red Blood Count 5.81 M/mm3 (4.6-6.2); White Blood Count 9.2 K/mm3 (4.4-11.0)
[2022-02-20 13:05] LABS: Blood Gas Specimen Type VEN; VBG BASE EXCESS 0 mmol/L (-1.0-3.5); VBG Bicarbonate 25 mmol/L (22-26); VBG PO2 64 mmHg (25-40); VBG SO2 92 % (50-70); VBG TCO2 26 mmol/L (23-33); VBG pCO2 39.5 mmHg (41-51)
[2022-02-20 13:19] LABS: ALB/GLOB Ratio 0.9 RATIO (0.9-2.4); AST(SGOT) 12 U/L (15-37); Alanine Aminotransfer ALT/SGPT 35 U/L (16-61); Albumin, Serum 3.6 g/dL (3.2-5.0); Alkaline Phosphatase 150 U/L (45-117); Anion Gap 7 (5-15); BUN 13 mg/dL (7-18); BUN/Creat Ratio 11.9 RATIO (10-20); Calcium,Total 9.4 mg/dL (8.5-10.1); Chloride 97 mmol/L (98-107); Creatinine, Serum 1.09 mg/dL (0.70-1.30); EST Glomerular Filtration Rate 73 mL/min (>60); Est Glom Filt Rate - Afr Amer 89 mL/min (>60); Estimated Creatinine Clearance 83.79 ml/min; Globulin 3.9 g/dL (2.2-4.2); Glucose 298 mg/dL (74-106); Lipase 74 U/L (73-393); Potassium 4.4 mmol/L (3.5-5.1); Protein, Total 7.5 g/dL (6.4-8.2); Sodium Level 132 mmol/L (136-145)
[2022-02-20 13:32] LABS: Bacteria 0 SEEN /hpf (None Seen); Mucous, Urine 0 SEEN /hpf (<or=2+); Red Blood Cells-Urine 0 SEEN /hpf (0-5); White Blood Cells 0 SEEN /hpf (0-5)
[2022-02-20 13:37] LABS: Lactic Acid 1.7 mmol/L (0.4-1.9)
[2022-02-20 13:41] LABS: Color, Urine Yellow (Yellow); Glucose, Dipstick 1000 mg/dl (Normal); Ketone-Dipstick Negative (Negative); Leukocyte Esterase-Dipstick Negative /ul (Negative); Nitrite-Dipstick Negative (Negative); Occult Blood-Urine Negative /ul (Negative); Protein-Dipstick Negative (Negative); Specific Gravity, Urine 1.015 (1.002-1.030); Urine Bilirubin Dipstick Negative (Negative); Urine Clarity Clear (Clear); Urine Urobilinogen Normal (Normal)
[2022-02-20 13:47] LABS: Squamous Epithelial Cells - UA 0-5 SEEN /hpf (0-5)
[2022-02-20 14:04] VITALS: BP 135/86; PULSE 65; RESP 18; O2SAT 97
[2022-02-20 14:10] LABS: Bedside Glucose 251 mg/dL (74-106)
== END 2022-02-20 14:30 | disposition home or self-care (01) ==
PROVIDERS: Nurse Practitioner; Emergency Provider Emergency Medicine; PCP Physician Assistant; Visit Provider Emergency Medicine
DX: E11.65 Type 2 diabetes mellitus with hyperglycemia (principal); E11.10 Type 2 diabetes mellitus with ketoacidosis without coma; G89.29 Other chronic pain; R35.89 Other polyuria; M54.9 Dorsalgia, unspecified; E78.5 Hyperlipidemia, unspecified; I10 Essential (primary) hypertension; E87.1 Hypo-osmolality and hyponatremia; Z86.73 Personal history of transient ischemic attack (TIA), and cerebral infarction without residual deficits; U09.9 Post COVID-19 condition, unspecified
CPT/HCPCS: 71045; 80053; 81001; 82009; 82803; 82962; 83605; 83690; 85025; 87428; 99283; J7030; A4216; J2405

== ENCOUNTER 2022-06-06 11:21 | Observation (INO) | payer BC, SELFPAY ==
[2022-06-06] VITALS (11 sets, daily range): BP systolic 132–175; BP diastolic 74–109; PULSE 61–83; RESP 15–19; TEMP 36.5–36.9; O2SAT 95–100; BMI 31.6; BMI 31.3
--- NOTE | 2022-06-06 11:42 | CT_ITS ---
STUDY: CT BRAIN WITHOUT CONTRAST REASON FOR EXAM: Male, 61 years old. Occipital headache, blurred vision RADIATION DOSAGE (If Supplied By Facility): CTDIvol = ( 44.99 ) mGy, DLP = ( 829.85 ) mGycm TECHNIQUE: Transaxial CT imaging of the brain was performed without administration of intravenous contrast material. Individualized dose optimization techniques were used for this CT. COMPARISON: 11/14/2021 FINDINGS: Normal soft tissue structures. Normal calvarium. Normal size ventricles and extra-axial spaces for the patient''s age. Normal white matter tracts of the cerebral hemispheres. Normal basal ganglia and thalami. Normal brainstem. Normal cerebellum. There is no intracranial hemorrhage. There are no findings of an acute ischemic infarction. Normal visualized paranasal sinuses. CT/Brain/Head without Contrast IMPRESSION: Age consistent changes, no acute findings, no interval change Electronically Signed: Mo Rowe MD at 12:09 EDT ,
--- NOTE | 2022-06-06 11:43 | EKG12_ITS ---
Test Reason : Blood Pressure : / mmHG Vent. Rate : 062 BPM Atrial Rate : 062 BPM P-R Int : 170 ms QRS Dur : 110 ms QT Int : 392 ms P-R-T Axes : 027 -02 010 degrees QTc Int : 397 ms Normal sinus rhythm Normal ECG Confirmed by SARA SHELBY, IVAN ([id number]), supervising editor trailer FIDEL BERMAN ([id number]) on 06/09/2022 12:54:41 PM Referred By: Confirmed By:IVAN RUIZ MD
--- NOTE | 2022-06-06 11:44 | EX.ED.DYSGE1 ---
HPI History of Present Illness Chief Complaint: Headache Detail of Chief Complaint: Multiple complaints and symptoms Informant: patient Onset/Context/Timing Onset: Weeks (Initial onset 1 week ago got worse yesterday) Context: Gradual Onset Timing: Continuous Quality: Per HPI narrative Location: Per HPI narrative Current Severity: Mild Maximum Severity: Severe Worsened by: Nothing Relieved by: Nothing Associated Symptoms Associated Symptoms: Per HPI narrative Narrative Narrative: Patient is a 61-year-old male with history of neuropathy of the even though he denied neuropathy to me. He also has history of diabetes. He states his last A1c was greater than 9. He has history of hypertension, TIA and headaches. He presents because of flashing sensation and pain behind his eyes. He also complains of discomfort in the occiput region which he describes as 100 pound weight. When given many options regarding his vision he initially said loss but then stated blurred. He denies ringing in his ears or decreased hearing. He denies rhinorrhea, congestion or postnasal drainage. He denies sore throat. He has not noted change in voice. He has had no drooling. He denied chest discomfort. He did report shortness of breath. He was not able to tell me if there is anything that exacerbated, precipitated or alleviated his shortness of breath. He denies vomiting or diarrhea. He states 4 weeks ago he had bloody diarrhea for 4 days and had multiple loose stools. He does endorse frequency. He states he drinks a lot of fluid. He denies dysuria or hematuria. He states his stool is now formed. Stool is not black or maroon in color. He has not noted any blood. He states he has problems with his balance. He also complains of numbness in his feet for 1 month. He denies motor weakness of his upper or lower extremities. States has had trouble with memory for approximately 1 week. When asked if anything that he is aware of that may precipitate or make his symptoms worse that started a week ago he responded no. Prior similar symptoms: No Recent Illness/Hospitalization: No [facility] Medical History Anxiety and depression Benign essential hypertension Blunt head trauma BPH (benign prostatic hyperplasia) COVID-19 long hauler Diabetes Diabetes mellitus type 2 in obese Grade II diastolic dysfunction Hyperlipidemia Iron deficiency anemia Pulmonary embolism TIA (transient ischemic attack) Home Medications amlodipine 10 mg tablet 10 mg PO DAILY blood pressure 12/29/17 [History Last Taken 06/06/22 10 mg] metformin 500 mg tablet 2,000 mg PO DAILY blood sugar 01/20/21 [History Last Taken 06/06/22] atorvastatin 20 mg tablet 40 mg PO QHS cholesterol 04/15/21 [History Last Taken 06/05/22] bupropion HCl 150 mg 24 hr tablet, extended release 150 mg PO DAILY depression 04/15/21 [History Last Taken 06/06/22] insulin glargine 100 unit/mL (3 mL) subcutaneous pen (Lantus Solostar U-100 Insulin) 36 unit subcut QHS blood sugar 04/15/21 [History Last Taken 11/13/21 22:00] zolpidem 10 mg tablet 10 mg PO QHS PRN Insomnia 04/15/21 [History Last Taken 06/05/22] duloxetine 30 mg capsule,delayed release 30 mg PO DAILY depression 09/05/21 [History Last Taken 06/06/22] hydrochlorothiazide 25 mg tablet 25 mg PO DAILY diuretic 09/05/21 [History Last Taken 06/06/22] insulin lispro 100 unit/mL subcutaneous pen (Humalog KwikPen (U-100) Insulin) 12 unit subcut TIDCM blood sugar 09/05/21 [History Last Taken 11/14/21 09:00] metoprolol tartrate 50 mg tablet 50 mg PO BID blood pressure 09/05/21 [History Last Taken 06/06/22] tamsulosin 0.4 mg capsule 0.4 mg PO QHS urinary retention 09/05/21 [History Last Taken 06/05/22] empagliflozin 10 mg tablet (Jardiance) 10 mg PO ACHS 06/06/22 [History Last Taken 06/06/22] sildenafil 50 mg tablet 50 mg PO PRN PRN Sexual Activity 06/06/22 [History Last Taken Unknown] Allergy/AdvReac Type Severity Reaction Status Date / Time Iodinated Contrast Media [CT] Allergy Rash Verified 06/06/22 11:21 iohexol [From Omnipaque] Allergy Rash Verified 06/06/22 11:21 Family History Mother Brain aneurysm age 65 with ruptured aneurysm. Father Diabetes Cancer Surgical History History of appendectomy History of back surgery History of knee joint replacement History of tonsillectomy Social History household members: spouse Smoking Status: Never smoker alcohol intake: never substance use type: does not use ROS ROS ED Constitutional Constitutional ED: Denies chills, fever(s), subjective, sweats or weight loss Eyes Eyes: Reports blurry vision bilateral and change in vision bilateral; Denies diplopia ENT ENT ED: Denies ear pain or rhinorrhea Cardiovascular Cardiovascular: Denies chest pain, orthopnea, palpitations, paroxysmal nocturnal dyspnea or racing heartbeat Respiratory/Chest Respiratory/Chest: Denies cough, dyspnea, dyspnea on exertion, orthopnea or paroxysmal nocturnal dyspnea Gastrointestinal Gastrointestinal: Reports diarrhea; Denies abdominal pain, melena, nausea or vomiting Genitourinary Genitourinary ED: Denies dysuria, hematuria or urinary frequency Musculoskeletal Musculoskeletal: Denies arthralgias, back pain, myalgias or neck pain Integumentary Denies abscess, Abrasions or rash Neurologic Neurologic: Reports headache(s) and weakness; Denies paresthesias Psychiatric Psychiatric: Denies anxiety or depression Endocrine Endocrinology: Denies cold intolerance or heat intolerance Hematologic/Lymphatic Hematologic/Lymphatic: Reports systems reviewed and no addt'l complaints, except as documented and anemia EXAM Physical Exam Const Vital Signs: 06/06/22 11:22 06/06/22 13:00 Temperature 98.0 F Temperature Source Temporal Pulse Rate 65 64 Respiratory Rate 16 16 Blood Pressure 175/109 H 132/103 H Blood Pressure Mean 131 112 Pulse Ox 100 Oxygen Delivery Method Room Air Positive well nourished and well developed Constitutional Narrative: Patient with slow psychomotor skills flat affect and monotone voice when answering questions. There was essentially no eye contact during the history or physical examination. General Appearance ED: well developed and NAD; Negative for cyanotic, diaphoretic or pallor HEENT Reports moist mucous membranes HEENT Narrative: Head is atraumatic normocephalic. Ears normal. Nares patent. Teeth normal. Uvula midline. There is no angioedema. Eyes PERRL and EOMs intact bilaterally Eyes Narrative: There is no nystagmus. There is no photophobia. General Eye ED: Negative for pale conjunctiva or scleral icterus Neck no lymphadenopathy, supple and no JVD Neck Narrative: Trachea is midline. There is no cervical lymphadenopathy. Chest Wall inspection of chest normal and palpation of chest normal Resp normal respiratory effort and clear to auscultation bilaterally Cardio regular rate, regular rhythm, S1 normal heart sound, S2 normal heart sound and no murmurs GI normal to inspection, nondistended, normoactive bowel sounds, non-tender, non-distended and no masses; Negative for hepatosplenomegaly Auscultation: hypoactive bowel sounds Palpation: soft Back/Spine no CVA tenderness Extremity Extremity Narrative: Patient has absence of hair in his legs. He does have hair on his toes and dorsum of his foot. There is no evidence of trauma. There is no edema. PT pulse is greater on right than left. DP pulse is greater on the right and then left as well. Neuro oriented x3, CN's II-XII intact bilaterally and no sensory deficits noted Neuro Narrative: Romberg with eyes open and closed were unremarkable with the exception of an intention tremor with eyes closed. Gait was broad-based and unsteady. Patient could not perform tandem gait. Psych Psych Narrative: Patient with a flat affect. Monotone voice. Slow psychomotor skills. Skin no rashes or lesions noted, no wounds and skin turgor normal General Skin Exam: Negative for jaundice or pallor MDM MDM MDM Narrative Medical decision making narrative: This may represent depression. This may represent autonomic dysfunction due to poorly controlled diabetes. Apparently there is a history of alcohol use in the past. This may be related to that. His pressure is elevated but would not explain his symptoms. This may also represent vertebrobasilar insufficiency/stroke. Will obtain CT of the head, appropriate blood work and because of prior history of urinary tract infections will obtain a UA. Also will will assess for glucose urea and ketones in his urine. Blood pressure was not treated since there is concern that this may represent vertebrobasilar insufficiency or cerebellar stroke and will allow for permissive hypertension. Patient care was discussed with Dr. Carter the hospitalist. She informed that she will contact me pending conversation with MRI regarding admission or MRI through the emergency department. Lab Data Attestation: I reviewed the patient's lab results. Lab results narrative: CBC is unremarkable. Comprehensive metabolic panel is unremarkable. BUN and glucose are slightly elevated 21 and 114 respectively. UA is negative except for glucose and protein. There is no evidence infection. At the time of this addendum alcohol level still pending. If alcohol level is negative will contact hospitalist for admission for possible stroke work-up since he has abnormal gait and is unable to perform tandem gait. Labs: Laboratory Results - last 24 hr 06/06/22 06/06/22 06/06/22 11:25 11:25 11:34 WBC 8.6 RBC 5.67 Hgb 15.6 Hct 48.9 MCV 86.2 MCH 27.5 MCHC 31.9 L RDW Std Deviation 42.5 RDW Coeff of Melanie 13.6 Plt Count 372 MPV 9.8 Immature Gran % (Auto) 0.500 Neut % (Auto) 58.1 Lymph % (Auto) 30.1 Saunders % (Auto) 7.4 Eos % (Auto) 3.4 Baso % (Auto) 0.5 Absolute Neuts (auto) 5.0 Absolute Lymphs (auto) 2.59 Nucleated RBC % 0 Sodium Potassium Chloride Carbon Dioxide Anion Gap BUN Creatinine Estim Creat Clear Calc Est GFR (MDRD) Af Amer Est GFR (MDRD) Non-Af BUN/Creatinine Ratio Glucose Calcium Total Bilirubin AST ALT Alkaline Phosphatase Total Protein Albumin Globulin Albumin/Globulin Ratio Urine Color Yellow Urine Clarity Clear Urine pH 5.0 Ur Specific [place] 1.020 Urine Protein 15 H Urine Glucose (UA) 1000 H Urine Ketones Negative Urine Occult Blood Negative Urine Nitrite Negative Urine Bilirubin Negative Urine Urobilinogen Normal Ur Leukocyte Esterase Negative Urine RBC 0 SEEN Urine WBC 0 SEEN Ur Squamous Epith Cells 0 SEEN Urine Bacteria 0 SEEN Urine Mucus 0 SEEN Urine Opiates Screen NEGATIVE Urine Methadone Screen NEGATIVE Ur Barbiturates Screen NEGATIVE Ur Phencyclidine Scrn NEGATIVE Ur Amphetamines Screen NEGATIVE MDMA (Ecstasy) Screen NEGATIVE U Benzodiazepines Scrn NEGATIVE Urine Cocaine Screen NEGATIVE U Cannabinoids Screen NEGATIVE Ur Drug Screen Comment Ethyl Alcohol 06/06/22 06/06/22 11:34 12:03 WBC RBC Hgb Hct MCV MCH MCHC RDW Std Deviation RDW Coeff of Melanie Plt Count MPV Immature Gran % (Auto) Neut % (Auto) Lymph % (Auto) Saunders % (Auto) Eos % (Auto) Baso % (Auto) Absolute Neuts (auto) Absolute Lymphs (auto) Nucleated RBC % Sodium 140 Potassium 3.9 Chloride 105 Carbon Dioxide 27.0 Anion Gap 8 BUN 21 H Creatinine 1.10 Estim Creat Clear Calc 83.03 Est GFR (MDRD) Af Amer 88 Est GFR (MDRD) Non-Af 72 BUN/Creatinine Ratio 19.1 Glucose 114 H Calcium 9.4 Total Bilirubin 0.70 AST 14 L ALT 30 Alkaline Phosphatase 132 H Total Protein 7.6 Albumin 3.4 Globulin 4.2 Albumin/Globulin Ratio 0.8 L Urine Color Urine Clarity Urine pH Ur Specific [place] Urine Protein Urine Glucose (UA) Urine Ketones Urine Occult Blood Urine Nitrite Urine Bilirubin Urine Urobilinogen Ur Leukocyte Esterase Urine RBC Urine WBC Ur Squamous Epith Cells Urine Bacteria Urine Mucus Urine Opiates Screen Urine Methadone Screen Ur Barbiturates Screen Ur Phencyclidine Scrn Ur Amphetamines Screen MDMA (Ecstasy) Screen U Benzodiazepines Scrn Urine Cocaine Screen U Cannabinoids Screen Ur Drug Screen Comment Ethyl Alcohol < 3.0 Radiography Diagnostic Testing: Clinical Impression(s) from Imaging Studies Brain CT 06/06/22 11:42 IMPRESSION: Age consistent changes, no acute findings, no interval change Electronically Signed: Mo Rowe MD at 12:09 EDT , EKG Initial EKG: Attestation: I personally reviewed and interpreted this EKG as follows: Interpretation: Sinus Rhythm (Rate is 62. EKG is normal. AR interval 270 ms. Cures duration 110 ms. QT durations are 92 ms. Obion is normal.) Discharge Plan Dx/Rx/DC Orders Clinical Impression: Ataxia, Binocular visual disturbance, Occipital headache, Hypertension Disposition Disposition: Acute Care Hospital [facility] Discharge Date/Time: 06/06/22 14:19
[2022-06-06 11:54] LABS: Bacteria 0 SEEN /hpf (None Seen); Color, Urine Yellow (Yellow); Glucose, Dipstick 1000 mg/dl (Normal); Ketone-Dipstick Negative (Negative); Leukocyte Esterase-Dipstick Negative /ul (Negative); Mucous, Urine 0 SEEN /hpf (<or=2+); Nitrite-Dipstick Negative (Negative); Occult Blood-Urine Negative /ul (Negative); Protein-Dipstick 15 mg/dl (Negative); Red Blood Cells-Urine 0 SEEN /hpf (0-5); Squamous Epithelial Cells - UA 0 SEEN /hpf (0-5); Urine Bilirubin Dipstick Negative (Negative); Urine Clarity Clear (Clear); Urine Urobilinogen Normal (Normal); White Blood Cells 0 SEEN /hpf (0-5)
[2022-06-06 11:54] LABS: Absolute Lymphocyte Count 2.59 X10^3/uL (0.83-4.51); Basophil# 0.04 X10^3/uL; Basophil% 0.5 % (0-1); Eosinophil# 0.29 X10^3/uL; Eosinophils% 3.4 % (0-5); Hematocrit 48.9 % (40-54); Hemoglobin 15.6 g/dL (13.0-16.5); Lymphocyte # 2.59 X10^3/ul (0.83-4.51); Lymphocyte % 30.1 % (19-41); Mean Corp Hgb Conc 31.9 g/dL (32-36); Mean Corpuscular Hgb 27.5 pg (27.0-32.0); Mean Corpuscular Volume 86.2 fL (80-94); Mean Platelet Vol. 9.8 fl (6.2-12.0); Monocyte# 0.64 X10^3/uL; Monocyte% 7.4 % (0-10); NRBC Flagged by Analyzer 0 % (0-5); Neutrophil % 58.1 % (47-70); Platelet Count 372 K/mm3 (150-450); RBC Distribution Width CV 13.6 % (11.6-14.6); RBC Distribution Width SD 42.5 fl (35.1-43.9); Red Blood Count 5.67 M/mm3 (4.6-6.2); White Blood Count 8.6 K/mm3 (4.4-11.0)
[2022-06-06 12:13] LABS: ALB/GLOB Ratio 0.8 RATIO (0.9-2.4); AST(SGOT) 14 U/L (15-37); Alanine Aminotransfer ALT/SGPT 30 U/L (16-61); Albumin, Serum 3.4 g/dL (3.2-5.0); Alkaline Phosphatase 132 U/L (45-117); Anion Gap 8 (5-15); BUN 21 mg/dL (7-18); BUN/Creat Ratio 19.1 RATIO (10-20); Calcium,Total 9.4 mg/dL (8.5-10.1); Chloride 105 mmol/L (98-107); EST Glomerular Filtration Rate 72 mL/min (>60); Est Glom Filt Rate - Afr Amer 88 mL/min (>60); Estimated Creatinine Clearance 83.03 ml/min; Globulin 4.2 g/dL (2.2-4.2); Glucose 114 mg/dL (74-106); Potassium 3.9 mmol/L (3.5-5.1); Protein, Total 7.6 g/dL (6.4-8.2); Sodium Level 140 mmol/L (136-145)
[2022-06-06 13:02] LABS: Alcohol, Blood (Medical)-Serum < 3.0 mg/dL
--- NOTE | 2022-06-06 14:06 | HP.PCM.HOS_ITS ---
Documented by User: Kenzie Davalos NP, [employer] 06/06/22 14:30 HPI - General General Date of Admission: 06/06/22 Date of Service: 06/06/22 Chief Complaint: Headache, ataxia. HPI Narrative ASHWINI GUERRERO, is a 61 M who presents to the emergency room with multiple various complaints. Patient states yesterday he began having a headache in the back of his head as well as difficulty with his balance. He denies fall at home. Denies unilateral weakness or focal deficits. He denies loss of vision. States he has a darkness behind his eyes. When patient asked for further clarification he states it is difficult to describe. He denies speech changes. Reports he has had balance issues previously however significantly worsened yesterday. He reports left-sided tingling. Denies numbness. Patient also complains of abdominal pain. He states he recently had diarrhea with intermittent blood in stool. He states diarrhea has resolved however he continues to have generalized abdominal pain. Denies nausea, vomiting. He denies chest pain, shortness of breath. He has a past medical history of TIA, hypertension, hyperlipidemia, type 2 diabetes mellitus, anxiety, depression, BPH, history of DVT/PE, obesity. [facility] Medical History Anxiety and depression Benign essential hypertension Blunt head trauma BPH (benign prostatic hyperplasia) COVID-19 jodi flores Diabetes Diabetes mellitus type 2 in obese Grade II diastolic dysfunction Hyperlipidemia Iron deficiency anemia Pulmonary embolism TIA (transient ischemic attack) Home Medications amlodipine 10 mg tablet 10 mg PO DAILY blood pressure 12/29/17 [History Last Taken 11/14/21 10:00] metformin 500 mg tablet 2,000 mg PO DAILY blood sugar 01/20/21 [History Last Taken 11/14/21 10:00] atorvastatin 20 mg tablet 40 mg PO QHS cholesterol 04/15/21 [History Last Taken 11/13/21 21:00] bupropion HCl 150 mg 24 hr tablet, extended release 150 mg PO DAILY depression 04/15/21 [History Last Taken 11/14/21 10:00] insulin glargine 100 unit/mL (3 mL) subcutaneous pen (Lantus Solostar U-100 Insulin) 36 unit subcut QHS blood sugar 04/15/21 [History Last Taken 11/13/21 22:00] zolpidem 10 mg tablet 10 mg PO QHS PRN Insomnia 04/15/21 [History Last Taken 11/13/21 22:00] duloxetine 30 mg capsule,delayed release 30 mg PO DAILY depression 09/05/21 [History Last Taken 11/14/21 10:00] hydrochlorothiazide 25 mg tablet 25 mg PO DAILY diuretic 09/05/21 [History Last Taken 11/14/21 10:00] insulin lispro 100 unit/mL subcutaneous pen (Humalog KwikPen (U-100) Insulin) 12 unit subcut TIDCM blood sugar 09/05/21 [History Last Taken 11/14/21 09:00] metoprolol tartrate 50 mg tablet 50 mg PO BID blood pressure 09/05/21 [History Last Taken 11/14/21 10:00] tamsulosin 0.4 mg capsule 0.4 mg PO QHS urinary retention 09/05/21 [History Last Taken 11/13/21 22:00] empagliflozin 10 mg tablet (Jardiance) 10 mg PO ACHS 06/06/22 [History Last Taken Unknown] sildenafil 50 mg tablet 50 mg PO PRN PRN Sexual Activity 06/06/22 [History Last Taken Unknown] Allergy/AdvReac Type Severity Reaction Status Date / Time Iodinated Contrast Media [CT] Allergy Rash Verified 06/06/22 11:21 iohexol [From Omnipaque] Allergy Rash Verified 06/06/22 11:21 Family History Mother Brain aneurysm age 65 with ruptured aneurysm. Father Diabetes Cancer Surgical History History of appendectomy History of back surgery History of knee joint replacement History of tonsillectomy Social History household members: spouse Smoking Status: Never smoker alcohol intake: never substance use type: does not use ROS Constitutional Constitutional: Reports weakness; Denies change in weight, chills, fatigue or fever(s) Cardiovascular Cardiovascular: Denies chest pain, edema, lightheadedness, palpitations or syncope Respiratory/Chest Respiratory/Chest: Denies cough, dyspnea, productive cough, shortness of breath at rest, shortness of breath with exertion or wheezing Gastrointestinal Gastrointestinal: Reports abdominal pain and diarrhea; Denies constipation, nausea or vomiting Genitourinary Genitourinary: Denies burning urination, difficulty urinating, dysuria, hematu anaid, urinary frequency, urinary incontinence or urinary urgency Musculoskeletal Musculoskeletal: Denies back pain, joint pain or muscle weakness Integumentary Integumentary: Denies erythema, lesions, rash or wounds Neurologic Neurologic: Reports abnormal gait, headache(s) and tingling; Denies abnormal speech, confusion, dizziness, focal weakness, numbness, paresthesias, seizure- like activity or syncope Psychiatric Psychiatric: Reports anxiety and depression Hematologic/Lymphatic Hematologic/Lymphatic: Denies anemia, easy bleeding or easy bruising Allergic/Immunologic Allergic/Immunologic: Denies hives or asthma Vital Signs Vital Signs Vital Signs: 06/06/22 11:22 06/06/22 13:00 06/06/22 13:47 Temperature 98.0 F 98.3 F Temperature Source Temporal Temporal Pulse Rate 65 64 65 Respiratory Rate 16 16 19 H Blood Pressure 175/109 H 132/103 H 141/74 H Blood Pressure Mean 131 112 96 Pulse Ox 100 95 Oxygen Delivery Method Room Air Room Air Weight Weight: 246 lb 14.684 oz Body Mass Index (BMI) 31.6 Physical Exam Const alert and oriented x3 Constitutional Narrative: Slow to respond HEENT normocephalic and moist oral mucous membranes Eyes PERRL, EOMs intact bilaterally and conjunctivae normal Neck no lymphadenopathy Resp clear to auscultation bilaterally Auscultation: diminished lung sounds Cardio regular rate, regular rhythm and no murmurs Peripheral Pulses: pulses 2+ throughout GI normal to inspection, nondistended, normoactive bowel sounds and non-distended Palpation: tender other (Generalized) Extremity normal to inspection Skin no rashes or lesions noted Lesions: no lesions Rashes: no rashes Trauma: no lacerations or abrasions Neuro CN's II-XII intact bilaterally, no focal motor deficits, no sensory deficits noted and deep tendon reflexes 2+ bilaterally Psych Mood & Affect: flat affect Results Lab / Micro Data Result Diagrams: 06/06/22 11:34 06/06/22 11:34 Labs: Laboratory Results - last 24 hr 06/06/22 11:25: Urine Color Yellow, Urine Clarity Clear, Urine pH 5.0, Ur Specific [place] 1.020, Urine Protein 15 H, Urine Glucose (UA) 1000 H, Urine Ketones Negative, Urine Occult Blood Negative, Urine Nitrite Negative, Urine Bilirubin Negative, Urine Urobilinogen Normal, Ur Leukocyte Esterase Negative, Urine RBC 0 SEEN, Urine WBC 0 SEEN, Ur Squamous Epith Cells 0 SEEN, Urine Bacteria 0 SEEN, Urine Mucus 0 SEEN 06/06/22 11:34: WBC 8.6, RBC 5.67, Hgb 15.6, Hct 48.9, MCV 86.2, MCH 27.5, MCHC 31.9 L, RDW Std Deviation 42.5, RDW Coeff of Melanie 13.6, Plt Count 372, MPV 9.8, Immature Gran % (Auto) 0.500, Neut % (Auto) 58.1, Lymph % (Auto) 30.1, Brule % (Auto) 7.4, Eos % (Auto) 3.4, Baso % (Auto) 0.5, Absolute Neuts (auto) 5.0, Absolute Lymphs (auto) 2.59, Nucleated RBC % 0 06/06/22 11:34: Sodium 140, Potassium 3.9, Chloride 105, Carbon Dioxide 27.0, Anion Gap 8, BUN 21 H, Creatinine 1.10, Estim Creat Clear Calc 83.03, Est GFR (MDRD) Af Amer 88, Est GFR (MDRD) Non-Af 72, BUN/Creatinine Ratio 19.1, Glucose 114 H, Calcium 9.4, Total Bilirubin 0.70, AST 14 L, ALT 30, Alkaline Phosphatase 132 H, Total Protein 7.6, Albumin 3.4, Globulin 4.2, Albumin/Globulin Ratio 0.8 L 06/06/22 12:03: Ethyl Alcohol < 3.[address] 06/06/22 11:42 IMPRESSION: Age consistent changes, no acute findings, no interval change Electronically Signed: Mo Rowe MD at 12:09 EDT , Assessment & Plan Assessment/Plan (1) Ataxia: (2) Occipital headache: (3) Paresthesias: (4) Abdominal pain: PLAN: Plan 1. Cephalgia, ataxia-rule out posterior CVA. MRI of brain ordered. Carotid ultrasound. PT/OT/ST. Aspirin, statin. Check tox screen. 2. Abdominal pain with recent diarrhea-lab work unremarkable. Obtain KUB. 3. History of TIA-continue statin. Not on aspirin. 4. Hypertension-stable, continue amlodipine, metoprolol. 5. Hyperlipidemia-continue statin. 6. Type 2 diabetes mellitus-continue home oral and insulin regimen. Accu-Cheks with sliding scale insulin. Check hemoglobin A1c. 7. Anxiety/depression-on bupropion, duloxetine. 8. BPH-continue Flomax. 9. 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 No longer on anticoagulation. 10. Obesity-diet and lifestyle modifications encouraged. DVT prophylaxis- Lovenox sc This patient was seen by CECI GreggC under the supervision of Dr. Rich. Documented by User: Dr. Mirtha Carter DO 06/06/22 15:05 HPI - General General Date of Admission: 06/06/22 HPI Narrative This patient was seen in conjunction with Kenzie Davalos NP. Following represents my independent history and physical examination. Please see below for addendum the above. Mr. Guerrero is a 61-year-old white male who presented to the emergency department at [facility] with multiple complaints. He reports that he started having a headache that was located in the posterior aspect of his head the day prior to admission and began having some balance difficulty. He denied any falls at home but does complain of some left-sided sensory changes with no focal weakness. He complained of a darkness sensation behind his eyes but had no specific visual changes and it appears during his NIH that his ability to see and read text is not impaired as his NIH peers to be 0. He reported some intermittent speech changes to me however was unable to clarify and his speech was clear but slightly slowed upon my exam. He reports some balance issues at baseline but states that they worsened yesterday. He admits to having episode of a 4-day diarrhea approximately 1 month ago but states this is since resolved and has had no further issues. He complains of some intermittent abdominal pain which upon review of previous documentation appears to be chronic issue for which a CT was done in November of this past year and was unremarkable for any acute findings. He has had no nausea or vomiting. He denies any fever or chi lls. Vital signs upon presentation to the emergency department show temperature of 98 degrees, heart rate 65, blood pressure 175/109 with repeat at 141/74, respiratory rate 16, oxygen saturations are 95% on room air. His CBC is unremarkable. His BMP is unremarkable other than mild hyperglycemia with a glucose of 114. The patient is a known diabetic at baseline. His UA shows small amount of protein and glucose but is otherwise unremarkable. CT of the brain showed age consistent changes but no acute findings and no interval change changed with comparison study on 11/14/2021. His EKG showed normal sinus rhythm with first-degree heart block having a NE interval of [address]-T wave fitch es consistent with acute ischemia. In the emergency department they attempted to ambulate him but he had pretty significant ataxia and with his headache and visual disturbances we felt it prudent to admit him and work-up for stroke/TIA. [facility] Medical History Anxiety and depression Benign essential hypertension Blunt head trauma BPH (benign prostatic hyperplasia) COVID-19 long hauler Diabetes Diabetes mellitus type 2 in obese Grade II diastolic dysfunction Hyperlipidemia Iron deficiency anemia Pulmonary embolism TIA (transient ischemic attack) Home Medications amlodipine 10 mg tablet 10 mg PO DAILY blood pressure 12/29/17 [History Last Taken 11/14/21 10:00] metformin 500 mg tablet 2,000 mg PO DAILY blood sugar 01/20/21 [History Last Taken 11/14/21 10:00] atorvastatin 20 mg tablet 40 mg PO QHS cholesterol 04/15/21 [History Last Taken 11/13/21 21:00] bupropion HCl 150 mg 24 hr tablet, extended release 150 mg PO DAILY depression 04/15/21 [History Last Taken 11/14/21 10:00] insulin glargine 100 unit/mL (3 mL) subcutaneous pen (Lantus Solostar U-100 Insulin) 36 unit subcut QHS blood sugar 04/15/21 [History Last Taken 11/13/21 22:00] zolpidem 10 mg tablet 10 mg PO QHS PRN Insomnia 04/15/21 [History Last Taken 11/13/21 22:00] duloxetine 30 mg capsule,delayed release 30 mg PO DAILY depression 09/05/21 [History Last Taken 11/14/21 10:00] hydrochlorothiazide 25 mg tablet 25 mg PO DAILY diuretic 09/05/21 [History Last Taken 11/14/21 10:00] insulin lispro 100 unit/mL subcutaneous pen (Humalog KwikPen (U-100) Insulin) 12 unit subcut TIDCM blood sugar 09/05/21 [History Last Taken 11/14/21 09:00] metoprolol tartrate 50 mg tablet 50 mg PO BID blood pressure 09/05/21 [History Last Taken 11/14/21 10:00] tamsulosin 0.4 mg capsule 0.4 mg PO QHS urinary retention 09/05/21 [History Last Taken 11/13/21 22:00] empagliflozin 10 mg tablet (Jardiance) 10 mg PO ACHS 06/06/22 [History Last Taken Unknown] sildenafil 50 mg tablet 50 mg PO PRN PRN Sexual Activity 06/06/22 [History Last Taken Unknown] Allergy/AdvReac Type Severity Reaction Status Date / Time Iodinated Contrast Media [CT] Allergy Rash Verified 06/06/22 11:21 iohexol [From Omnipaque] Allergy Rash Verified 06/06/22 11:21 Family History Mother Brain aneurysm age 65 with ruptured aneurysm. Father Diabetes Cancer Surgical History History of appendectomy History of back surgery History of knee joint replacement History of tonsillectomy Social History household members: spouse Smoking Status: Never smoker alcohol intake: never substance use type: does not use Physical Exam Const alert, oriented x3, no apparent distress and well nourished Constitutional Narrative: Obese, upper middle-aged, white male sitting up in bed, nursing at bedside performing NIH, patient appears comfortable nontoxic, patient appropriate but response time is somewhat slowed and affect is flat General Appearance: cooperative HEENT normocephalic, head/scalp atraumatic, hearing grossly normal bilaterally and moist oral mucous membranes HEENT Narrative: Mallampati is 3, no thrush Eyes PERRL, EOMs intact bilaterally and conjunctivae normal Eyes Narrative: No scleral icterus Neck no lymphadenopathy, supple, no JVD and no carotid bruits Resp normal respiratory effort, no retractions and no use of accessory muscles Auscultation: Negative for crackles, rales, rhonchi or wheezes Cardio regular rate, regular rhythm, S1 normal heart sound, S2 normal heart sound, no murmurs, no rub, no gallops and no clicks GI normal to inspection, nondistended, normoactive bowel sounds, soft to palpation and non-tender GI Narrative: Patient with some guarding but no significant tenderness noted and fairly benign exam especially when patient was distracted Extremity normal to inspection and no clubbing, cyanosis or edema Extremity Narrative: 2+ pedal pulses, cap refill is 2+ Skin no rashes or lesions noted, no wounds, skin turgor normal, no jaundice, no petechiae and no mottling Neuro oriented x3, CN's II-XII intact bilaterally, moves all extremities and no focal motor deficits Neuro Narrative: Mild bilateral lower extremity neuropathy at bilateral feet, reflexes are 2+ bilateral upper and lower extremities, speech is somewhat slow and deliberate however not slurred and appropriate, mild bilateral lower extremity weakness with no focal deficits Psych Psych Narrative: Affect is extremely flat and mood seems depressed Results Lab / Micro Data Result Diagrams: 06/06/22 11:34 06/06/22 11:34 Assessment & Plan Assessment/Plan (1) Ataxia: (2) Occipital headache: (3) Paresthesias: (4) Abdominal pain: PLAN: Plan Assessment: Ataxia Headache Visual disturbance Left-sided paresthesias Abdominal pain History of TIA Hypertension Epidural edema DM-2 uncontrolled BPH History of DVT/PE Recent COVID-19 infection Anxiety neck pression Obesity Erectile dysfunction Insomnia Plan: -Utilize stroke work-up but exclude echocardiogram as patient just had one 09/02 that demonstrated an EF of 55 to 60% and a negative bubble study -NIH per protocol -MRI in a.m. -PT/OT consultation -We will check KUB with abdominal pain however liver enzymes are normal and patient without nausea vomiting or change in stool at this time -Check lipid profile -Check hemoglobin A1c -Hold home oral regimen -Continue home insulin -Add moderate dose sliding scale -Accu-Cheks before meals and at bedtime Charges/Coding Visit Charges OBSV E&M: 61854 Initial observation care L3
[2022-06-06 14:44] LABS: Amphetamine Urine VISTA NEGATIVE (<1000 ng/mL); Barbiturate Urine VISTA NEGATIVE (< 200 ng/mL); Benzodiazepine Urine VISTA NEGATIVE (< 200 ng/mL); Cocaine Urine VISTA NEGATIVE (< 300 ng/mL); Ecstacy Urine VISTA NEGATIVE (< 500 ng/mL); Methadone Urine VISTA NEGATIVE (< 300 ng/mL); PCP Urine VISTA NEGATIVE (< 25 ng/mL); THC Urine VISTA NEGATIVE (< 50 ng/mL); Vista UDS pH Range 5
--- NOTE | 2022-06-06 15:05 | RAD_ITS ---
STUDY: X-RAY - ABDOMEN/PELVIS REASON FOR EXAM: Male, 61 years old. Abdominal pain TECHNIQUE: 3 frontal images of the abdomen were obtained. COMPARISON: None. FINDINGS: Normal visualized lung bases. There is an unremarkable bowel gas pattern. There is no demonstrated free abdominal air. Normal soft tissue structures. Normal visualized osseous structures. RAD/Abdomen Single View (Portable) IMPRESSION: Nonspecific bowel gas pattern. Electronically Signed: Daksha Echeverria MD at 16:16 EDT ,
[2022-06-06 16:20] LABS: Bedside Glucose 103 mg/dL (74-106)
[2022-06-06] MEDS: Acetaminophen 325 MG Tablet 650 MG PO (17:53)
[2022-06-06] MEDS: Insulin Lispro 100 UNIT/ML INSULN.PEN 8 UNIT SC (18:02)
[2022-06-06 18:26] LABS: Bedside Glucose 167 mg/dL (74-106)
--- NOTE | 2022-06-06 22:20 | CT_ITS ---
EXAM: CT brain without IV contrast. HISTORY: CVA TECHNIQUE: No intravenous contrast. A radiation dose optimization technique was used for this scan. COMPARISON: Head CT from the same day. LIMITATIONS: None. BRAIN: Mild low attenuation within the deep white matter, predominantly on the left side, likely secondary to chronic microvascular ischemia. The appearance of the brain is stable since the prior exam. VENTRICLES: No hydrocephalus. EXTRA-AXIAL SPACES: No acute hemorrhage. CALVARIUM/SKULL BASE: No acute fracture. FACE/SINUSES: Mucous retention cyst or polyp in the left maxillary sinus. SOFT TISSUES: Normal. OTHER: None. CONCLUSION: No acute intracranial abnormality. No change from the prior exam. Electronically Signed: Leonidas Betancourt MD at 22:55 EDT , CT/Brain/Head without Contrast IMPRESSION: undefined
[2022-06-06] MEDS: Metoprolol Tartrate 50 MG Tablet PO (22:21)
--- NOTE | 2022-06-06 22:21 | PCM.HOSP.N ---
Hospitalist Note Patient reporting vision worse than earlier, difficult to describe, notes blurry and dark spots. NIHSS similar and no additional new symptoms or deficits. To be cautious will obtain repeat CT head given patient notable concern and changes in vision as noted.
[2022-06-06] MEDS: Tamsulosin HCl 0.4 MG Capsule PO (22:22)
[2022-06-06] MEDS: Atorvastatin Calcium 40 MG Tablet PO (22:22)
[2022-06-06] MEDS: Insulin Glargine-YFGN 100 UNIT/ML Pen 36 UNIT SC (22:27)
[2022-06-06] MEDS: Zolpidem Tartrate 5 MG Tablet PO (22:44)
[2022-06-06 22:50] LABS: Bedside Glucose 165 mg/dL (74-106)
[2022-06-07] VITALS (9 sets, daily range): BP systolic 132–152; BP diastolic 83–99; PULSE 59–75; RESP 18; TEMP 36.4–36.7; O2SAT 95–98; BMI 31.3
[2022-06-07] MEDS: Acetaminophen 325 MG Tablet 650 MG PO (02:29)
[2022-06-07 05:54] LABS: Absolute Lymphocyte Count 3.11 X10^3/uL (0.83-4.51); Absolute Neutrophil Count 5.9 X10^3/uL (2.0-7.7); Basophil# 0.04 X10^3/uL; Basophil% 0.4 % (0-1); Eosinophil# 0.35 X10^3/uL; Eosinophils% 3.5 % (0-5); Hematocrit 44.8 % (40-54); Lymphocyte # 3.11 X10^3/ul (0.83-4.51); Lymphocyte % 30.7 % (19-41); Mean Corp Hgb Conc 33.5 g/dL (32-36); Mean Corpuscular Hgb 28.1 pg (27.0-32.0); Mean Corpuscular Volume 84.1 fL (80-94); Mean Platelet Vol. 9.9 fl (6.2-12.0); Monocyte# 0.66 X10^3/uL; Monocyte% 6.5 % (0-10); NRBC Flagged by Analyzer 0 % (0-5); Neutrophil # 5.94 X10^3/uL (2.7-7.7); Neutrophil % 58.7 % (47-70); Platelet Count 334 K/mm3 (150-450); RBC Distribution Width CV 13.5 % (11.6-14.6); RBC Distribution Width SD 41.3 fl (35.1-43.9); Red Blood Count 5.33 M/mm3 (4.6-6.2); White Blood Count 10.1 K/mm3 (4.4-11.0)
[2022-06-07 06:39] LABS: ALB/GLOB Ratio 0.8 RATIO (0.9-2.4); AST(SGOT) 15 U/L (15-37); Alanine Aminotransfer ALT/SGPT 30 U/L (16-61); Albumin, Serum 3.1 g/dL (3.2-5.0); Alkaline Phosphatase 99 U/L (45-117); Anion Gap 9 (5-15); BUN 23 mg/dL (7-18); BUN/Creat Ratio 19.8 RATIO (10-20); Calcium,Total 8.7 mg/dL (8.5-10.1); Chloride 103 mmol/L (98-107); Cholesterol 141 mg/dL (200); Creatinine, Serum 1.16 mg/dL (0.70-1.30); EST Glomerular Filtration Rate 68 mL/min (>60); Est Glom Filt Rate - Afr Amer 82 mL/min (>60); Estimated Creatinine Clearance 78.74 ml/min; Globulin 3.8 g/dL (2.2-4.2); Glucose 173 mg/dL (74-106); High Density Lipoprotein 28 mg/dL; Magnesium 1.8 mg/dL (1.6-2.6); Phosphorus 3.9 mg/dL (2.5-4.9); Potassium 3.6 mmol/L (3.5-5.1); Protein, Total 6.9 g/dL (6.4-8.2); Sodium Level 137 mmol/L (136-145); Thyroid Stim Hormone (TSH) 2.31 uIU/mL (0.358-3.74); Triglycerides 147 mg/dL; Very Low Density Lipoprotein 29 mg/dL (5-40)
--- NOTE | 2022-06-07 07:48 | MRI_ITS ---
STUDY: MRI BRAIN WITHOUT CONTRAST REASON FOR EXAM: Male, 61 years old. TIA TECHNIQUE: Standardized multiplanar fat and water weighted pulse sequences were obtained. COMPARISON: CT 06/06/2022, MRI 09/05/2021 FINDINGS: Normal size of the ventricles and extra-axial spaces for the patient''s age. Normal white matter tracts of the supratentorial brain. There is no evidence for recent intracranial ischemia or other cause of cytotoxic edema on diffusion weighted imaging (DWI). Normal T2* images of the brain without demonstrated susceptibility artifact. There is no demonstrated hemosiderin stain. Normal bilateral basal ganglia. Normal thalami. There is no extra-axial fluid accumulation. Normal flow voids within the major intracranial circulation suggesting patency by spin echo criteria. Normal sella turcica, pituitary gland, infundibular stalk, optic chiasm and hypothalamus. Normal tectal plate and pineal gland. Normal midbrain, jeremie and medulla. Normal cerebellum. Normal basal cisterns. Normal bilateral temporal bones. Normal bilateral internal auditory canals. No demonstrated orbital abnormality, within the constraints of a routine brain study. Mucous retention cyst in the left x-ray sinus consistent with chronic sinusitis. Normal calvarium and skull base. Normal visualized soft tissue structures. Normal visualized upper cervical spine. MRI/Brain without Contrast IMPRESSION: Normal unenhanced MRI of the brain. Electronically Signed: Raffaele Negron MD at 11:50 EDT ,
[2022-06-07] MEDS: Insulin Lispro 100 UNIT/ML INSULN.PEN 12 UNIT SC ×2 (08:19→12:11)
[2022-06-07] MEDS: Lisinopril 10 MG Tablet PO ×2 (08:21→08:55)
[2022-06-07] MEDS: hydroCHLOROthiazide 25 MG Tablet PO (08:21)
[2022-06-07] MEDS: DULoxetine Hcl 30 MG Capsule PO (08:21)
[2022-06-07] MEDS: Metoprolol Tartrate 50 MG Tablet PO (08:21)
[2022-06-07] MEDS: buPROPion (XL) 150 MG TABLET.XL PO (08:22)
[2022-06-07] MEDS: Enoxaparin 40 MG/0.4 ML Syringe SC (08:22)
[2022-06-07 09:10] LABS: Bedside Glucose 132 mg/dL (74-106)
[2022-06-07] MEDS: 0.9% Saline Lock 10 ML Syringe IV (10:48)
[2022-06-07] MEDS: Ondansetron 4 MG/2 ML Vial IV (10:48)
[2022-06-07] MEDS: LORazepam 0.5 MG Tablet PO (10:48)
--- NOTE | 2022-06-07 12:00 | DCINST_ITS ---
Discharge Instructions Diet Discharge Diet: Low fat / Low cholesterol and Carb Control Diet Activity Discharge Activity: Return to Normal Activity Dressing / Incision Call your doctor if you observe: Shortness of breath, Dizziness and Chest pain Follow Up Care Test Results: Test results from this visit will be discussed in further detail at your follow- up appointment, if applicable. Discharge Plan Admission Admit Date/Time: 06/06/22 13:25 Primary Reason for Your Visit: Ataxia- stroke ruled out Attending Provider: Mirtha Carter Primary Care Provider: Bella Prince Instructions Additional Instructions / Restrictions: Case management will follow up with you on Wednesday for outpatient therapy. Discharge Orders/Prescriptions Prescriptions: New atorvastatin 80 mg Tablet 80 mg PO QHS 30 Days Qty: 30 0RF insulin glargine-yfgn 100 unit/mL (3 mL) Insulin Pen 42 unit subcut QHS Qty: 0 0RF insulin lispro [Humalog KwikPen Insulin] 100 unit/mL Insulin Pen 12 unit subcut TIDCM Qty: 0 0RF lisinopril 20 mg Tablet 20 mg PO DAILY 30 Days Qty: 30 0RF Continued metformin 500 mg Tablet 2,000 mg PO DAILY zolpidem 10 mg tablet 10 mg PO QHS PRN (Reason: Insomnia) Label Comments: TAKE 1 TABLET BY MOUTH ONCE DAILY AT BEDTIME NEEDED FOR INSOMNIA bupropion HCl 150 mg tablet extended release 24 hr 150 mg PO DAILY Label Comments: TAKE 1 TABLET BY MOUTH ONCE DAILY hydrochlorothiazide 25 mg tablet 25 mg PO DAILY tamsulosin 0.4 mg capsule 0.4 mg PO QHS metoprolol tartrate 50 mg tablet 50 mg PO BID duloxetine 30 mg capsule,delayed release(DR/EC) 30 mg PO DAILY sildenafil 50 mg tablet 50 mg PO PRN PRN (Reason: Sexual Activity) Label Comments: TAKE ONE TABLET BY MOUTH ONE HOUR BEFORE SEXUAL ACTIVITY. DO NOT USE MORE THAN ONE DOSE DAILY Jardiance 10 mg tablet 10 mg PO ACHS Discontinued amlodipine 10 MG tablet 10 mg PO DAILY insulin glargine [Lantus Solostar U-100 Insulin] 100 unit/mL (3 mL) insulin pen 36 unit SUBCUT QHS Label Comments: inject 16 units subcutaneously at bedtime atorvastatin 20 MG tablet 40 mg PO QHS insulin lispro [Humalog KwikPen Insulin] 100 unit/mL insulin pen 8 unit SUBCUT TIDCM Rx Instructions: 8 units SC 3x daily before meals Referrals / Follow Up: Bella Prince, PA [Primary Care Provider] - In 1 Week Disposition Disposition (needs filled in before D/C Order can be placed): Home, Self Care
--- NOTE | 2022-06-07 12:04 | DS.PCM_ITS ---
Documented by User: Kenzie Davalos NP, UNDERWRITER-C 06/07/22 12:07 Providers Date of Admission: 06/06/22 Date of Discharge: 06/07/22 Primary Care Physician: PAULINE Giordano Reason For Visit: ATAXIA Diagnosis Discharge Diagnosis (1) Ataxia: Status: Acute Code(s): R27.0 - Ataxia, unspecified (2) Occipital headache: Status: Acute Code(s): R51.9 - Headache, unspecified (3) Paresthesias: Status: Acute Code(s): R20.2 - Paresthesia of skin (4) Abdominal pain: Status: Acute Code(s): R10.9 - Unspecified abdominal pain Plan 1. Cephalgia, ataxia-rule out posterior CVA. MRI of brain ordered. Carotid ultrasound. PT/OT/ST. Aspirin, statin. Check tox screen. 2. Abdominal pain with recent diarrhea-lab work unremarkable. Obtain KUB. 3. History of TIA-continue statin. Not on aspirin. 4. Hypertension-stable, continue amlodipine, metoprolol. 5. Hyperlipidemia-continue statin. 6. Type 2 diabetes mellitus-continue home oral and insulin regimen. Accu-Cheks with sliding scale insulin. Check hemoglobin A1c. 7. Anxiety/depression-on bupropion, duloxetine. 8. BPH-continue Flomax. 9. 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 No longer on anticoagulation. 10. Obesity-diet and lifestyle modifications encouraged. DVT prophylaxis- Lovenox sc This patient was seen by Kenzie Davalos NP-C under the supervision of Dr. Carter. Medications at Discharge Home Medications metformin 500 mg tablet 2,000 mg PO DAILY blood sugar 01/20/21 bupropion HCl 150 mg 24 hr tablet, extended release 150 mg PO DAILY depression 04/15/21 zolpidem 10 mg tablet 10 mg PO QHS PRN Insomnia 04/15/21 duloxetine 30 mg capsule,delayed release 30 mg PO DAILY depression 09/05/21 hydrochlorothiazide 25 mg tablet 25 mg PO DAILY diuretic 09/05/21 metoprolol tartrate 50 mg tablet 50 mg PO BID blood pressure 09/05/21 tamsulosin 0.4 mg capsule 0.4 mg PO QHS urinary retention 09/05/21 empagliflozin 10 mg tablet (Jardiance) 10 mg PO ACHS 06/06/22 sildenafil 50 mg tablet 50 mg PO PRN PRN Sexual Activity 06/06/22 atorvastatin 80 mg tablet 80 mg PO QHS 30 days #30 tabs 06/07/22 insulin glargine-yfgn 100 unit/mL (3 mL) subcutaneous pen 42 unit (0.42 mL) subcut QHS #0 mL 06/07/22 insulin lispro 100 unit/mL subcutaneous pen (Humalog KwikPen (U-100) Insulin) 12 unit (0.12 mL) subcut TIDCM #0 mL 06/07/22 lisinopril 20 mg tablet 20 mg PO DAILY 30 days #30 tabs 06/07/22 Hospital Course Operations None Procedures None Summary of Care Provided Hospital Course: Patient is a 61-year-old male admitted 06/06/2022 due to headache and ataxia. 1.? Cephalgia, ataxia-CVA ruled out.? MRI of brain without acute process.? PT did not recommend any ongoing therapy. Patient's symptoms currently resolved. Suspect patient has significant neuropathy contributing to symptoms of unsteady gait. Recommend follow-up with PCP for ongoing outpatient evaluation. 2. Abdominal pain with recent diarrhea-lab work unremarkable. KUB unremarkable. Abdominal pain resolved. 3. History of TIA-continue statin.? Not on aspirin. Statin increased to 80 mg nightly. 4. Hypertension-stable, continue metoprolol. Transition from amlodipine to lisinopril. 5. Hyperlipidemia-continue statin. 6. Type 2 diabetes mellitus-hemoglobin A1c at 9%. Home insulin regimen adjusted. Continue home oral regimen. 7. Anxiety/depression-on bupropion, duloxetine. 8. BPH-continue Flomax. 9. History of DVT/PE-following COVID-19.? No longer on anticoagulation. 10. Obesity-diet and lifestyle modifications encouraged. Physical Exam Const alert and oriented x3 Constitutional Narrative: Slow to respond HEENT normocephalic and moist oral mucous membranes Eyes PERRL, EOMs intact bilaterally and conjunctivae normal Neck no lymphadenopathy Resp clear to auscultation bilaterally Auscultation: diminished lung sounds Cardio regular rate, regular rhythm and no murmurs Peripheral Pulses: pulses 2+ throughout GI normal to inspection, nondistended, normoactive bowel sounds and non-distended Palpation: tender other (Generalized) Extremity normal to inspection Skin no rashes or lesions noted Lesions: no lesions Rashes: no rashes Trauma: no lacerations or abrasions Neuro CN's II-XII intact bilaterally, no focal motor deficits, no sensory deficits noted and deep tendon reflexes 2+ bilaterally Psych Mood & Affect: flat affect Patient seen and examined prior to discharge. Physical assessment as noted above. Patient is stable for discharge with follow up recommendations as noted above. This patient was seen by MUSA Gregg under the supervision of Dr. Carter. Weight / BMI Weight Weight: 244 lb 0.827 oz Body Mass Index (BMI) 31.3 ABG / Lab / Microbiology Data Result Diagrams: 06/07/22 05:10 06/07/22 05:10 Laboratory: Laboratory Results - last 24 hr 06/06/22 11:25: Urine Color Yellow, Urine Clarity Clear, Urine pH 5.0, Ur Specific [place] 1.020, Urine Protein 15 H, Urine Glucose (UA) 1000 H, Urine Ketones Negative, Urine Occult Blood Negative, Urine Nitrite Negative, Urine Bilirubin Negative, Urine Urobilinogen Normal, Ur Leukocyte Esterase Negative, Urine RBC 0 SEEN, Urine WBC 0 SEEN, Ur Squamous Epith Cells 0 SEEN, Urine Bacteria 0 SEEN, Urine Mucus 0 SEEN 06/06/22 11:25: Urine Opiates Screen NEGATIVE, Urine Methadone Screen NEGATIVE, Ur Barbiturates Screen NEGATIVE, Ur Phencyclidine Scrn NEGATIVE, Ur Amphetamines Screen NEGATIVE, MDMA (Ecstasy) Screen NEGATIVE, U Benzodiazepines Scrn NEGATIVE, Urine Cocaine Screen NEGATIVE, U Cannabinoids Screen NEGATIVE, Ur Drug Screen Comment 06/06/22 11:34: Sodium 140, Potassium 3.9, Chloride 105, Carbon Dioxide 27.0, Anion Gap 8, BUN 21 H, Creatinine 1.10, Estim Creat Clear Calc 83.03, Est GFR (MDRD) Af Amer 88, Est GFR (MDRD) Non-Af 72, BUN/Creatinine Ratio 19.1, Glucose 114 H, Calcium 9.4, Total Bilirubin 0.70, AST 14 L, ALT 30, Alkaline Phosphatase 132 H, Total Protein 7.6, Albumin 3.4, Globulin 4.2, Albumin/Globulin Ratio 0.8 L 06/06/22 11:34: Folate 11.70 06/06/22 12:03: Ethyl Alcohol < 3.0 06/06/22 16:01: POC Glucose 103 06/06/22 17:57: POC Glucose 167 H 06/06/22 22:24: POC Glucose 165 H 06/07/22 05:10: Hemoglobin A1c 9.0 H 06/07/22 05:10: WBC 10.1, RBC 5.33, Hgb 15.0, Hct 44.8, MCV 84.1, MCH 28.1, MCHC 33.5 D, RDW Std Deviation 41.3, RDW Coeff of Melanie 13.5, Plt Count 334, MPV 9.9, Immature Gran % (Auto) 0.200, Neut % (Auto) 58.7, Lymph % (Auto) 30.7, Harmon % (Auto) 6.5, Eos % (Auto) 3.5, Baso % (Auto) 0.4, Absolute Neuts (auto) 5.9, Absolute Lymphs (auto) 3.11, Nucleated RBC % 0 06/07/22 05:10: Sodium 137, Potassium 3.6, Chloride 103, Carbon Dioxide 25.0, Anion Gap 9, BUN 23 H, Creatinine 1.16, Estim Creat Clear Calc 78.74, Est GFR (MDRD) Af Amer 82, Est GFR (MDRD) Non-Af 68, BUN/Creatinine Ratio 19.8, Glucose 173 H, Calcium 8.7, Phosphorus 3.9, Magnesium 1.8, Total Bilirubin 0.70, AST 15, ALT 30, Alkaline Phosphatase 99, Total Protein 6.9, Albumin 3.1 L, Globulin 3.8, Albumin/Globulin Ratio 0.8 L, Triglycerides 147, Cholesterol 141, LDL Cholesterol 84, VLDL Cholesterol 29, HDL Cholesterol 28 L, TSH 2.31 06/07/22 08:13: POC Glucose 132 H Radiography Diagnostic Testing: Radiology Impression Brain CT 06/06/22 11:42 IMPRESSION: Age consistent changes, no acute findings, no interval change Electronically Signed: Mo Rowe MD at 12:09 EDT , KUB X-Ray 06/06/22 15:05 IMPRESSION: Nonspecific bowel gas pattern. Electronically Signed: Daksha Echeverria MD at 16:16 EDT , Brain CT 06/06/22 22:20 IMPRESSION: undefined Brain MRI 06/07/22 07:48 IMPRESSION: Normal unenhanced MRI of the brain. Electronically Signed: Raffaele Negron MD at 11:50 EDT , D/C Instructions Discharge Diet: Low fat / Low cholesterol and Carb Control Diet Call your doctor if you observe: Shortness of breath, Dizziness and Chest pain Meaningful Use Info Meaningful Use Diagnoses (Choose all that apply): None applicable Discharge Plan Admission Admit Date/Time: 06/06/22 13:25 Primary Reason for Your Visit: Ataxia- stroke ruled out Attending Provider: Mirtha Carter Primary Care Provider: Bella Prince Instructions Additional Instructions / Restrictions: Case management will follow up with you on Wednesday for outpatient therapy. Please obtain an appointment with an rn neonatal or an family preservation worker for an eye exam given your visual changes and negative MRI. Discharge Orders/Prescriptions Prescriptions: New atorvastatin 80 mg Tablet 80 mg PO QHS 30 Days Qty: 30 0RF insulin glargine-yfgn 100 unit/mL (3 mL) Insulin Pen 42 unit subcut QHS Qty: 0 0RF insulin lispro [Humalog KwikPen Insulin] 100 unit/mL Insulin Pen 12 unit subcut TIDCM Qty: 0 0RF lisinopril 20 mg Tablet 20 mg PO DAILY 30 Days Qty: 30 0RF Continued metformin 500 mg Tablet 2,000 mg PO DAILY zolpidem 10 mg tablet 10 mg PO QHS PRN (Reason: Insomnia) Label Comments: TAKE 1 TABLET BY MOUTH ONCE DAILY AT BEDTIME NEEDED FOR INSOMNIA bupropion HCl 150 mg tablet extended release 24 hr 150 mg PO DAILY Label Comments: TAKE 1 TABLET BY MOUTH ONCE DAILY hydrochlorothiazide 25 mg tablet 25 mg PO DAILY tamsulosin 0.4 mg capsule 0.4 mg PO QHS metoprolol tartrate 50 mg tablet 50 mg PO BID duloxetine 30 mg capsule,delayed release(DR/EC) 30 mg PO DAILY sildenafil 50 mg tablet 50 mg PO PRN PRN (Reason: Sexual Activity) Label Comments: TAKE ONE TABLET BY MOUTH ONE HOUR BEFORE SEXUAL ACTIVITY. DO NOT USE MORE THAN ONE DOSE DAILY Jardiance 10 mg tablet 10 mg PO ACHS Discontinued amlodipine 10 MG tablet 10 mg PO DAILY insulin glargine [Lantus Solostar U-100 Insulin] 100 unit/mL (3 mL) insulin pen 36 unit SUBCUT QHS Label Comments: inject 16 units subcutaneously at bedtime atorvastatin 20 MG tablet 40 mg PO QHS insulin lispro [Humalog KwikPen Insulin] 100 unit/mL insulin pen 8 unit SUBCUT TIDCM Rx Instructions: 8 units SC 3x daily before meals Referrals / Follow Up: Bella Prince PA [Primary Care Provider] - In 1 Week Disposition Disposition (needs filled in before D/C Order can be placed): Home, Self Care Documented by User: Dr. Mirtha Carter DO 06/07/22 13:21 Providers Date of Admission: 06/06/22 Reason For Visit: ATAXIA Diagnosis Discharge Diagnosis (1) Ataxia: Status: Acute Code(s): R27.0 - Ataxia, unspecified (2) Occipital headache: Status: Acute Code(s): R51.9 - Headache, unspecified (3) Paresthesias: Status: Acute Code(s): R20.2 - Paresthesia of skin (4) Abdominal pain: Status: Acute Code(s): R10.9 - Unspecified abdominal pain Medications at Discharge Home Medications metformin 500 mg tablet 2,000 mg PO DAILY blood sugar 01/20/21 bupropion HCl 150 mg 24 hr tablet, extended release 150 mg PO DAILY depression 04/15/21 zolpidem 10 mg tablet 10 mg PO QHS PRN Insomnia 04/15/21 duloxetine 30 mg capsule,delayed release 30 mg PO DAILY depression 09/05/21 hydrochlorothiazide 25 mg tablet 25 mg PO DAILY diuretic 09/05/21 metoprolol tartrate 50 mg tablet 50 mg PO BID blood pressure 09/05/21 tamsulosin 0.4 mg capsule 0.4 mg PO QHS urinary retention 09/05/21 empagliflozin 10 mg tablet (Jardiance) 10 mg PO ACHS 06/06/22 sildenafil 50 mg tablet 50 mg PO PRN PRN Sexual Activity 06/06/22 atorvastatin 80 mg tablet 80 mg PO QHS 30 days #30 tabs 06/07/22 insulin glargine-yfgn 100 unit/mL (3 mL) subcutaneous pen 42 unit (0.42 mL) subcut QHS #0 mL 06/07/22 insulin lispro 100 unit/mL subcutaneous pen (Humalog KwikPen (U-100) Insulin) 12 unit (0.12 mL) subcut TIDCM #0 mL 06/07/22 lisinopril 20 mg tablet 20 mg PO DAILY 30 days #30 tabs 06/07/22 Hospital Course Procedures - (MRI brain) Summary of Care Provided Minutes Spent on Discharge: 28 Hospital Course: This patient was seen in conjunction with Kenzie Davalos NP. The following represents my independent history and physical examination. Please see below for than the above. Mr. Guerrero is a 61-year-old white male who presented to the emergency department [facility] with multiple complaints on 06/06/2022. He reported on presentation that he started having a headache that was located in the posterior aspect of his head the day prior to admission and was having some balance difficulties. He denied any falls at home but did complain of some left-sided sensory changes with no focal weakness. He also complained of some darkness sensation behind his eyes but had no specific visual changes and was able to perform the NIH and read text without any impaired vision. His NIH was 0 on presentation remained 0 throughout his hospital course. He did note that he has balance issues at baseline and he had significant issues following his COVID-19 infection earlier this past year. He reported some intermittent speech changes however was unable to clarify and his speech was clear upon my exam. He admitted to having a 4-day episode of diarrhea approximately 1 month ago which had since resolved and had no further issues. He complained of intermittent abdominal pain but when reviewing previous documentation it appears that this was a chronic complaint for him and he had a CT done in November 2021 that was unremarkable. Vital signs upon presentation to the emergency department show temperature of 98 degrees, heart rate 65, blood pressure 175/109 with repeat at 141/74, respiratory rate 16, oxygen saturations are 95% on room air.? His CBC is unremarkable.? His BMP is unremarkable other than mild hyperglycemia with a glucose of 114.? The patient is a known diabetic at baseline.? His UA shows small amount of protein and glucose but is otherwise unremarkable.? CT of the brain showed age consistent changes but no acute findings and no interval change changed with comparison study on 11/14/2021.? His EKG showed normal sinus rhythm with first-degree heart block having a PA interval of [address]-T wave changes consistent with acute ischemia. With his ataxia, headache, and visual disturbance we admitted to the PCU for TIA/stroke work-up. Evidently through the night he had some visual changes and a repeat CT was performed which was again negative. On the morning of 06/07/2022 the patient reported that his vision was much improved however not complete really back to baseline. An MRI was able to be obtained and was negative for any acute findings. He was seen by physical and Occupational Therapy and while he needed no occupational therapy needs at discharge physical therapy recommended some ongoing outpatient physical therapy for his balance deficits and strengthening. His blood sugars remained elevated with a fasting sugar of 175 on the day of discharge. His hemoglobin A1c was found to be 9.0. Given these findings, we increased his basal insulin to 42 units and increase his mealtime insulin to 12 units 3 times daily. His blood pressures were elevated and we made changes in his blood pressure regimen by continuing his metoprolol but adding lisinopril 20 mg and discontinuing his amlodipine. We also increased his statin as his LDL was 84 and not at goal of less than 70. KUB was obtained for his abdominal pain and was found to be unremarkable with a nonspecific bowel gas pattern. The patient was able to eat and drink without any issues and having normal bowel movements. With his improvement in his functional status and negative noninvasive studies and labs were able to discharge him home on 06/07/2022. Prescriptions for the above changes were sent to his pharmacy and he was instructed to follow-up with his primary care physician within the next 1 to 2 weeks. He will need a follow-up BMP in approximately 1 to 2 weeks to really assess his renal function and potassium started after starting the lisinopril. We thought lisinopril would be of benefit to him given his diabetes at baseline and give him some added renal protection. I would also recommend that if he has ongoing visual changes he be seen by an rn neonatal or an family preservation worker for an eye exam. Discharge diagnoses: Ataxia Headache Visual disturbance Left-sided paresthesias Abdominal pain History of TIA Hypertension-uncontrolled Epidural edema DM-2 uncontrolled BPH History of DVT/PE Recent COVID-19 infection Anxiety neck pression Obesity Erectile dysfunction Insomnia Physical Exam Narrative Patient states that he is feeling much better today. Still having some vision changes however much improved. Still some intermittent tingling on the left side however this is improved as well. [place] that his balance and ambulation status had improved since presenting to the emergency department. Const alert, oriented x3, no apparent distress and well nourished Constitutional Narrative: Obese, upper middle-aged, white male sitting up in a chair at the bedside, waiting for breakfast and watching television General Appearance: cooperative, comfortable, well kempt and well developed Orientation / Consciousness: awake Exam Limitations: no limitations Nutritional Appearance: obese HEENT normocephalic, head/scalp atraumatic, hearing grossly normal bilaterally and moist oral mucous membranes HEENT Narrative: Mallampati 3, no thrush Resp normal respiratory effort, no retractions, no use of accessory muscles and clear to auscultation bilaterally Auscultation: diminished lung sounds; Negative for crackles, rales, rhonchi or wheezes Cardio regular rate, regular rhythm, S1 normal heart sound, S2 normal heart sound, no murmurs, no rub, no gallops and no clicks Peripheral Pulses: pulses 2+ throughout GI normal to inspection, nondistended, normoactive bowel sounds, soft to palpation, non-tender and non-distended Extremity normal to inspection and no clubbing, cyanosis or edema Extremity Narrative: 2+ pedal pulses, cap refill is 2+ Neuro oriented x3, CN's II-XII intact bilaterally, moves all extremities, no focal motor deficits and no sensory deficits noted Neuro Narrative: Mild bilateral lower extremity neuropathy at bilateral feet, reflexes are 2+ bilateral upper and lower extremities, speech was less deliberate and more timely today with no signs of abnormality, mild generalized weakness Speech: speech normal Psych Psych Narrative: Extremely pleasant and appropriately interactive ABG / Lab / Microbiology Data Result Diagrams: 06/07/22 05:10 06/07/22 05:10 Discharge Plan Admission Admit Date/Time: 06/06/22 13:25 Primary Reason for Your Visit: Ataxia- stroke ruled out Attending Provider: Mirtha Carter Primary Care Provider: Bella Prince Instructions Additional Instructions / Restrictions: Case management will follow up with you on Wednesday for outpatient therapy. Please obtain an appointment with an rn neonatal or an family preservation worker for an eye exam given your visual changes and negative MRI. Discharge Orders/Prescriptions Prescriptions: New atorvastatin 80 mg Tablet 80 mg PO QHS 30 Days Qty: 30 0RF insulin glargine-yfgn 100 unit/mL (3 mL) Insulin Pen 42 unit subcut QHS Qty: 0 0RF insulin lispro [Humalog KwikPen Insulin] 100 unit/mL Insulin Pen 12 unit subcut TIDCM Qty: 0 0RF lisinopril 20 mg Tablet 20 mg PO DAILY 30 Days Qty: 30 0RF Continued metformin 500 mg Tablet 2,000 mg PO DAILY zolpidem 10 mg tablet 10 mg PO QHS PRN (Reason: Insomnia) Label Comments: TAKE 1 TABLET BY MOUTH ONCE DAILY AT BEDTIME NEEDED FOR INSOMNIA bupropion HCl 150 mg tablet extended release 24 hr 150 mg PO DAILY Label Comments: TAKE 1 TABLET BY MOUTH ONCE DAILY hydrochlorothiazide 25 mg tablet 25 mg PO DAILY tamsulosin 0.4 mg capsule 0.4 mg PO QHS metoprolol tartrate 50 mg tablet 50 mg PO BID duloxetine 30 mg capsule,delayed release(DR/EC) 30 mg PO DAILY sildenafil 50 mg tablet 50 mg PO PRN PRN (Reason: Sexual Activity) Label Comments: TAKE ONE TABLET BY MOUTH ONE HOUR BEFORE SEXUAL ACTIVITY. DO NOT USE MORE THAN ONE DOSE DAILY Jardiance 10 mg tablet 10 mg PO ACHS Discontinued amlodipine 10 MG tablet 10 mg PO DAILY insulin glargine [Lantus Solostar U-100 Insulin] 100 unit/mL (3 mL) insulin pen 36 unit SUBCUT QHS Label Comments: inject 16 units subcutaneously at bedtime atorvastatin 20 MG tablet 40 mg PO QHS insulin lispro [Humalog KwikPen Insulin] 100 unit/mL insulin pen 8 unit SUBCUT TIDCM Rx Instructions: 8 units SC 3x daily before meals Referrals / Follow Up: Bella Prince PA [Primary Care Provider] - In 1 Week Disposition Disposition (needs filled in before D/C Order can be placed): Home, Self Care Charges/Coding Visit Charges OBSV E&M: 32912 Observation care discharge
[2022-06-07 12:35] LABS: Bedside Glucose 148 mg/dL (74-106)
[2022-06-08 08:05] LABS: Vitamin B12 310 pg/mL (211-911)
--- NOTE | 2022-06-08 09:34 | CASEMGMT ---
Per Alessandra RIM ROLLER SETTER, pt would like set up with OP therapy at [facility]. Order obtained and faxed to [facility]. Yogi MARTÍNEZ CM
== END 2022-06-07 12:01 | disposition home or self-care (01) ==
LOC: ED 11:50 → PCU 14:18
PROVIDERS: Nurse Practitioner Family; Admitting Provider Internal Medicine; Emergency Provider Emergency Medicine; PCP Physician Assistant; Visit Provider Internal Medicine
DX: R27.0 Ataxia, unspecified (principal); E11.40 Type 2 diabetes mellitus with diabetic neuropathy, unspecified; Z79.4 Long term (current) use of insulin; E78.5 Hyperlipidemia, unspecified; N40.0 Benign prostatic hyperplasia without lower urinary tract symptoms; F41.9 Anxiety disorder, unspecified; Z86.16 Personal history of COVID-19; R20.2 Paresthesia of skin; E66.9 Obesity, unspecified; I10 Essential (primary) hypertension; F32.A Depression, unspecified; Z79.899 Other long term (current) drug therapy; Z68.31 Body mass index [BMI] 31.0-31.9, adult
CPT/HCPCS: 36415; 70450; 70551; 74018; 80053; 80061; 80307; 81001; 82077; 82607; 82746; 82962; 83036; 83735; 84100; 84443; 85025; 93005; 93880; 94762; 96372; 96374; 97162; 97165; 99218; 99285; A4216; G0378; J2405

== ENCOUNTER 2022-10-17 18:10 | Emergency (ER) | payer BC, SELFPAY ==
[2022-10-17 18:12] VITALS: BP 187/113; PULSE 110; RESP 21; TEMP 37.1; O2SAT 95; BMI 32.4
--- NOTE | 2022-10-17 18:34 | NURSING ---
Called to room per family for seizure-like activity. Pt had R arm shaking on arrival to ED and seizure like activity en route that stopped immediately with a sternal rub. Pt's noted that when he get out of his head like this he has R arm shaking. When called to the pt's room, pt appeared to be convulsing but was able to stop with loud verbal commands and sternal rub. Dr. Henderson at bedside but event ceased prior to his observation.
--- NOTE | 2022-10-17 18:39 | CT_ITS ---
EXAM: CT ABDOMEN AND PELVIS WITHOUT INTRAVENOUS CONTRAST CLINICAL INDICATION: vomiting, altered LOC TECHNIQUE: Helically acquired images were obtained of the abdomen and pelvis without intravenous contrast. This CT exam was performed using one or more of the following dose reduction techniques: automated exposure control, adjustment of the mA and/or kV according to patient size, and/or use of iterative reconstruction technique. This report was created using [employer] report generation technology. COMPARISON: 11/14/2021 FINDINGS: LOWER THORAX: Unremarkable. Lung bases are clear. No cardiomegaly. No significant pericardial effusion. ABDOMEN: LIVER: Unremarkable. Homogeneous. GALLBLADDER AND BILE DUCTS: Unremarkable. No calcified gallstones. No gallbladder distention or wall edema. No intra- or extrahepatic biliary ductal dilation. PANCREAS: Unremarkable. No focal cystic mass. SPLEEN: Unremarkable. Normal size without focal cystic or solid mass. ADRENALS: Unremarkable. No nodules. KIDNEYS AND URETERS: Unremarkable. Normal renal size and position. No hydronephrosis. STOMACH AND BOWEL: There is sigmoid diverticulosis with no evidence of diverticulitis. No stomach or bowel distention. PELVIS: APPENDIX: No evidence of acute appendicitis. BLADDER: Unremarkable. REPRODUCTIVE: Unremarkable as visualized. No mass. ABDOMEN and PELVIS: INTRAPERITONEAL SPACE: Unremarkable. No ascites or other fluid collection. No free air. BONES/JOINTS: Unremarkable. No suspicious lytic or blastic abnormality. SOFT TISSUES: Unremarkable. No discrete abdominal or pelvic wall hernia. VASCULATURE: Unremarkable. Abdominal aorta is non-dilated. LYMPH NODES: Unremarkable. No enlarged lymph nodes. CT/Abdomen/Pelvis without Cont IMPRESSION: No acute findings in the abdomen or pelvis. Electronically Signed: Gutierrez Miranda MD at 19:47 EST ,
--- NOTE | 2022-10-17 18:40 | EKG12_ITS ---
Test Reason : SEIZURES Blood Pressure : / mmHG Vent. Rate : 115 BPM Atrial Rate : 115 BPM P-R Int : 150 ms QRS Dur : 104 ms QT Int : 320 ms P-R-T Axes : 044 036 015 degrees QTc Int : 442 ms Sinus tachycardia with occasional Premature ventricular complexes Otherwise normal ECG Confirmed by SARA SHELBY, IVAN ([id number]), avid editor JUAN JOSE DEGROOT ([id number]) on 10/19/2022 11:17:44 AM Referred By: BB Confirmed By:IVAN RUIZ MD
--- NOTE | 2022-10-17 18:41 | CT_ITS ---
EXAM: CT HEAD WITHOUT INTRAVENOUS CONTRAST CLINICAL INDICATION: altered LOC, complex partial sz R body TECHNIQUE: Multiple axial images were obtained of the head without intravenous contrast. This CT exam was performed using one or more of the following dose reduction techniques: automated exposure control, adjustment of the mA and/or kV according to patient size, and/or use of iterative reconstruction technique. This report was created using [employer] report generation technology. COMPARISON: 06/06/2022 FINDINGS: BRAIN AND EXTRA-AXIAL SPACES: Unremarkable. No intra- or extra-axial hemorrhage. No evidence of acute infarct. No intracranial mass or mass effect. There is preservation of the keller/white matter interface. Posterior fossa structures are unremarkable. Ventricles are appropriate for age. No hydrocephalus. Basal cisterns are patent. BONES/JOINTS: Unremarkable. No discrete lytic or blastic abnormalities. SINUSES: Unremarkable as visualized. Clear. MASTOID AIR CELLS: Unremarkable. Clear. ORBITS: Visualized globes, extraocular muscles, optic nerves and retrobulbar fat appear unremarkable. CT/STROKE Brain/Head without Cont IMPRESSION: 1. No acute intracranial abnormality. There has been no change from the reference exam. 2. Aspects score 10. Electronically Signed: Gutierrez Miranda MD at 19:06 EST ,
[2022-10-17] MEDS: LORazepam 2 MG/ML Syringe 1 MG IV ×2 (18:42→19:28)
--- NOTE | 2022-10-17 18:42 | EDS_ITS ---
HPI History of Present Illness Chief Complaint: Abd Pain Informant: spouse/S.O. and family (daughter) Onset/Context/Timing Onset: Hours (1) Narrative Narrative: About an hour ago, patient was eating and felt like something got stuck in his esophagus. He then was holding his right flank, saying that it was hurting, and every time he stood up he felt short of breath. He told his daughter that the pain in his flank had been there for the last 2 weeks, she states it was worse tonight. He went to the bathroom trying to make himself vomit because of the food that felt like it was stuck. Family states this is happened to him multiple times in the past especially with meat/steak and he is usually able to clear it, he has never seen a specialist for it or had an EGD. Upon arrival here to the ED for the symptoms, the patient started seizing, so I was asked to come to evaluate the patient emergently which I did. The states he does not have a history of a seizure disorder, but he did this after a COVID-vaccine, indicating the asymmetric seizure activity he is experiencing here. That was about a year or so ago. He has had no vaccines in the last couple days, nor head injury or other recent illness. [facility] Medical History Anxiety and depression Benign essential hypertension Blunt head trauma BPH (benign prostatic hyperplasia) COVID-19 long hauler Diabetes Diabetes mellitus type 2 in obese Grade II diastolic dysfunction Hyperlipidemia Hypertension Iron deficiency anemia Pulmonary embolism TIA (transient ischemic attack) Home Medications metformin 500 mg tablet 2,000 mg PO DAILY blood sugar 01/20/21 [History Last Taken 06/06/22] bupropion HCl 150 mg 24 hr tablet, extended release 150 mg PO DAILY depression 04/15/21 [History Last Taken 06/06/22] zolpidem 10 mg tablet 10 mg PO QHS PRN Insomnia 04/15/21 [History Last Taken 06/05/22] duloxetine 30 mg capsule,delayed release 30 mg PO DAILY depression 09/05/21 [History Last Taken 06/06/22] hydrochlorothiazide 25 mg tablet 25 mg PO DAILY diuretic 09/05/21 [History Last Taken 06/06/22] metoprolol tartrate 50 mg tablet 50 mg PO BID blood pressure 09/05/21 [History Last Taken 06/06/22] tamsulosin 0.4 mg capsule 0.4 mg PO QHS urinary retention 09/05/21 [History Last Taken 06/05/22] empagliflozin 10 mg tablet (Jardiance) 10 mg PO ACHS 06/06/22 [History Last Taken 06/06/22] sildenafil 50 mg tablet 50 mg PO PRN PRN Sexual Activity 06/06/22 [History Last Taken Unknown] atorvastatin 80 mg tablet 80 mg PO QHS 30 days #30 tabs 06/07/22 [Rx Last Taken Unknown] insulin glargine-yfgn 100 unit/mL (3 mL) subcutaneous pen 42 unit (0.42 mL) subcut QHS #0 mL 06/07/22 [Rx Last Taken Unknown] insulin lispro 100 unit/mL subcutaneous pen (Humalog KwikPen (U-100) Insulin) 12 unit (0.12 mL) subcut TIDCM #0 mL 06/07/22 [Rx Last Taken Unknown] lisinopril 20 mg tablet 20 mg PO DAILY 30 days #30 tabs 06/07/22 [Rx Last Taken Unknown] Allergy/AdvReac Type Severity Reaction Status Date / Time Iodinated Contrast Media [CT] Allergy Rash Verified 06/06/22 11:21 iohexol [From Omnipaque] Allergy Rash Verified 06/06/22 11:21 Family History Mother Brain aneurysm age 65 with ruptured aneurysm. Father Diabetes Cancer Surgical History History of appendectomy History of back surgery History of knee joint replacement History of tonsillectomy Social History household members: spouse Smoking Status: Never smoker alcohol intake: never substance use type: does not use ROS ROS ED Review of Systems ROS Unobtainable: due to mental status EXAM Physical Exam Const Vital Signs: 10/17/22 18:12 10/17/22 19:30 10/17/22 20:38 Temperature 98.7 F Temperature Source Oral Pulse Rate 110 H 121 H 94 Respiratory Rate 21 H 16 Blood Pressure 187/113 H 172/97 H 206/119 H Blood Pressure Mean 137 122 148 Pulse Ox 95 96 98 Oxygen Delivery Method Room Air Room Air Oxygen Flow Rate (L/min) 10/17/22 21:00 10/17/22 21:00 10/17/22 21:00 Temperature Temperature Source Pulse Rate 95 Respiratory Rate Blood Pressure 142/96 H Blood Pressure Mean 111 Pulse Ox 88 96 Oxygen Delivery Method Room Air Nasal Cannula Oxygen Flow Rate (L/min) 3 10/17/22 21:30 Temperature Temperature Source Pulse Rate 84 Respiratory Rate Blood Pressure 122/80 H Blood Pressure Mean 94 Pulse Ox 98 Oxygen Delivery Method Nasal Cannula Oxygen Flow Rate (L/min) 2 Positive well nourished and well developed Constitutional Narrative: Obtunded, appears to be in and out of consciousness, intermittently having seizure activity mostly involving his right upper extremity and occasionally involving his trunk but not his legs. No facial twitching, not responding to commands, no forced deviation of his eyes. General Appearance ED: well developed HEENT Reports moist mucous membranes normocephalic and atraumatic Eyes PERRL and EOMs intact bilaterally Neck full ROM and supple Resp normal respiratory effort and clear to auscultation bilaterally Cardio regular rate, regular rhythm and no murmurs Rate: tachycardic GI non-distended GI Narrative: With palpation of abdomen, patient seems to have involuntary twitching/guarding, he is not conscious to provide any verbal responses to palpation/exam Auscultation: normoactive bowel sounds Palpation: soft Back/Spine no CVA tenderness General Back: other FROM Extremity normal to inspection General Extremety ED: Negative for edema, pulses abnormal or tenderness General Extremity: Negative for edema or pulses abnormal Neuro CN's II-XII intact bilaterally and no sensory deficits noted Hugo Coma Scale: document GCS findings To Voice Localizes to Pain None 9 Sensorium / Orientation: awake and alert Psych Psych Narrative: Not able to evaluate Skin no rashes or lesions noted and no wounds MDM MDM MDM Narrative Medical decision making narrative: Patient appears to be having complex partial seizure activity. He will stop but then restart, with less than 1 minute episodes, but his mental status is not returning to normal in between. For this reason I had nurses give him a dose of IV Ativan 1 mg stat. The result of this was the patient becoming less convulsive and lying on his side holding his abdomen moaning in pain. He then started having more intermittent seizure activity after he went and returned to/from CT. Therefore he was treated with Ativan again, his pressure initially was elevated and we were monitoring that, and came down from 187 systolic to 172 with the Ativan but upon returning and having more activity it is over 200. Therefore I am treating the blood pressure more aggressively, initially with labetalol 20 mg IV, and since still having seizure activity after the second milligram of Ativan, Keppra 2000 mg IV load. I did ask for the CT to be stroke protocol and paced the patient had a hemorrhage, the radiologist did call me with the emergent read, it is negative for any acute. I did review the images. My interpretation of the CT agrees with that of the radiologist. After the second dose of Ativan the patient continued to seize, and did so for more than 10 minutes involving his right upper extremity at which point I was alerted and then ordered Ativan 2 mg more than the prior 2 doses of 1 mg each, and IV Cardene which was started. With these medications his blood pressure came down, and as the Keppra was in, the patient's seizure activity discontinued. Other than an occasional twitch of his right arm, he did not have any further seizure activity. Blood pressure now 142/96, patient is lethargic due to the Ativan but he opens his eyes to voice, he can follow commands, indicate the right flank where he was having the pain, although his pulse ox is 88% on room air so we placed him on a 2 L nasal cannula which is helped keeping him from being hypoxic. He does not to be intubated at this time and seems to be protecting his airway. I am concerned that it took so much to stop him from seizing. It is possible that this was related to his blood pressure but I am concerned about it being unilateral seizure activity. I did a CT of the abdomen/pelvis that was negative/normal, I reviewed those images and the radiologist's interpretation. My interpretation of the CT agrees with that of the radiologist. Also 1 view chest x-ray normal my interpretation, radiology in agreement with that as well. Did not send a lactate since he does not have an elevated anion gap. Urinalysis shows no signs of infection. Since we do not have continuous EEG monitoring, hospitalist here is apprehensive about admitting him, she would prefer him be at a facility that has this capability. I do not disagree with this. Family prefers [facility], they are okay with [facility] since it is closer. Discussed care with nurse practitioner Alexa who accepts the patient under Dr. Murdock to the neuro ICU. At this time clinically the patient is doing well. His blood pressure is 122/80 on a Cardene drip, he is post postictal period and now able to converse, follow commands, he is awake and protecting his airway. Lab Data Attestation: I reviewed the patient's lab results. Labs: Laboratory Results - last 24 hr 10/17/22 10/17/22 10/17/22 18:30 18:30 20:13 WBC 8.9 RBC 5.71 Hgb 15.6 Hct 47.0 MCV 82.3 MCH 27.3 MCHC 33.2 RDW Std Deviation 42.5 RDW Coeff of Melanie 14.3 Plt Count 313 MPV 9.2 Immature Gran % (Auto) 0.600 Neut % (Auto) 54.0 Lymph % (Auto) 35.0 [place] % (Auto) 7.8 Eos % (Auto) 2.1 Baso % (Auto) 0.5 Absolute Neuts (auto) 4.8 Absolute Lymphs (auto) 3.11 Nucleated RBC % 0 Sodium 138 Potassium 4.4 Chloride 104 Carbon Dioxide 26.0 Anion Gap 8 BUN 25 H Creatinine 1.66 H Estim Creat Clear Calc 54.33 Est GFR (MDRD) Af Amer 54 L Est GFR (MDRD) Non-Af 45 L BUN/Creatinine Ratio 15.1 Glucose 173 H Calcium 8.9 Total Bilirubin 0.70 AST 17 ALT 35 Alkaline Phosphatase 114 Troponin I High Sens 12 Total Protein 7.7 Albumin 3.6 Globulin 4.1 Albumin/Globulin Ratio 0.9 Lipase 236 Urine Color Yellow Urine Clarity Clear Urine pH 6.0 Ur Specific [place] 1.025 Urine Protein 30 H Urine Glucose (UA) 100 H Urine Ketones Negative Urine Occult Blood Negative Urine Nitrite Negative Urine Bilirubin Negative Urine Urobilinogen Normal Ur Leukocyte Esterase Negative Urine RBC 0 SEEN Urine WBC 0-5 SEEN Ur Squamous Epith Cells 0 SEEN Urine Bacteria RARE Urine Mucus 0 SEEN Radiography Diagnostic Testing: Clinical Impression(s) from Imaging Studies Abdomen/Pelvis CT 10/17/22 18:39 IMPRESSION: No acute findings in the abdomen or pelvis. Electronically Signed: Gutierrez Miranda MD at 19:47 EST , Brain CT 10/17/22 18:41 IMPRESSION: 1. No acute intracranial abnormality. There has been no change from the reference exam. 2. Aspects score 10. Electronically Signed: Gutierrez Miranda MD at 19:06 EST , ADDENDUM: 10/17/221927 IMPRESSION: 1. No acute intracranial abnormality. There has been no change from the reference exam. 2. Aspects score 10. N.B. : The above Results were Read Back by Gutierrez Miranda MD to Carlos Henderson MD, and understanding confirmed on 10/17/2022 19:21:58 (ET). Electronically Signed: Gutierrez Miranda MD at 19:06 EST , Chest X-Ray 10/17/22 19:05 IMPRESSION: No radiographic evidence of acute cardiopulmonary disease. Electronically Signed: Gutierrez Miranda MD at 19:21 EST , Rhythm Strip Rhythm Strip: Sinus Tach Rate: 115 Ectopy: None EKG Initial EKG: Attestation: I personally reviewed and interpreted this EKG as follows: Interpretation: No Acute Injury Pattern and Sinus Tachycardia (Otherwise unremarkable) Critical Care Time Critical Care Time: Yes Critical care time (excluding procedures): 30-74 minutes (40 min), Including time spent:, Discussing w/Patient &/or Family/Trial Judge, Discussing w/Consultants, Arranging Admission or Transfer and Performing Direct Patient Care at Bedside Discharge Plan Triage Chief Complaint: Abd Pain ED Provider: Carlos Henderson Dx/Rx/DC Orders Clinical Impression: Status epilepticus, Complex partial seizures, Acute right flank pain, Dysphagia Prescriptions: No Action metformin 500 mg Tablet 2,000 mg PO DAILY zolpidem 10 mg tablet 10 mg PO QHS PRN (Reason: Insomnia) Label Comments: TAKE 1 TABLET BY MOUTH ONCE DAILY AT BEDTIME NEEDED FOR INSOMNIA bupropion HCl 150 mg tablet extended release 24 hr 150 mg PO DAILY Label Comments: TAKE 1 TABLET BY MOUTH ONCE DAILY hydrochlorothiazide 25 mg tablet 25 mg PO DAILY tamsulosin 0.4 mg capsule 0.4 mg PO QHS metoprolol tartrate 50 mg tablet 50 mg PO BID duloxetine 30 mg capsule,delayed release(DR/EC) 30 mg PO DAILY sildenafil 50 mg tablet 50 mg PO PRN PRN (Reason: Sexual Activity) Label Comments: TAKE ONE TABLET BY MOUTH ONE HOUR BEFORE SEXUAL ACTIVITY. DO NOT USE MORE THAN ONE DOSE DAILY Jardiance 10 mg tablet 10 mg PO ACHS atorvastatin 80 mg Tablet 80 mg PO QHS 30 Days Qty: 30 0RF insulin glargine-yfgn 100 unit/mL (3 mL) Insulin Pen 42 unit subcut QHS Qty: 0 0RF insulin lispro [Humalog KwikPen Insulin] 100 unit/mL Insulin Pen 12 unit subcut TIDCM Qty: 0 0RF lisinopril 20 mg Tablet 20 mg PO DAILY 30 Days Qty: 30 0RF Primary Care Provider: Bella Prince Referrals: Bella Prince PA [Primary Care Provider] - Disposition Disposition: Acute Care Hospital Discharge Location: [facility]
[2022-10-17] MEDS: Ondansetron 4 MG/2 ML Vial IV (18:46)
[2022-10-17 18:48] LABS: Absolute Lymphocyte Count 3.11 X10^3/uL (0.83-4.51); Absolute Neutrophil Count 4.8 X10^3/uL (2.0-7.7); Basophil# 0.04 X10^3/uL; Basophil% 0.5 % (0-1); Eosinophil# 0.19 X10^3/uL; Eosinophils% 2.1 % (0-5); Hemoglobin 15.6 g/dL (13.0-16.5); Lymphocyte # 3.11 X10^3/ul (0.83-4.51); Mean Corp Hgb Conc 33.2 g/dL (32-36); Mean Corpuscular Hgb 27.3 pg (27.0-32.0); Mean Corpuscular Volume 82.3 fL (80-94); Mean Platelet Vol. 9.2 fl (6.2-12.0); Monocyte# 0.69 X10^3/uL; Monocyte% 7.8 % (0-10); NRBC Flagged by Analyzer 0 % (0-5); Platelet Count 313 K/mm3 (150-450); RBC Distribution Width CV 14.3 % (11.6-14.6); RBC Distribution Width SD 42.5 fl (35.1-43.9); Red Blood Count 5.71 M/mm3 (4.6-6.2); White Blood Count 8.9 K/mm3 (4.4-11.0)
[2022-10-17 19:05] LABS: ALB/GLOB Ratio 0.9 RATIO (0.9-2.4); AST(SGOT) 17 U/L (15-37); Alanine Aminotransfer ALT/SGPT 35 U/L (16-61); Albumin, Serum 3.6 g/dL (3.2-5.0); Alkaline Phosphatase 114 U/L (45-117); Anion Gap 8 (5-15); BUN 25 mg/dL (7-18); BUN/Creat Ratio 15.1 RATIO (10-20); Calcium,Total 8.9 mg/dL (8.5-10.1); Chloride 104 mmol/L (98-107); Creatinine, Serum 1.66 mg/dL (0.70-1.30); EST Glomerular Filtration Rate 45 mL/min (>60); Est Glom Filt Rate - Afr Amer 54 mL/min (>60); Estimated Creatinine Clearance 54.33 ml/min; Globulin 4.1 g/dL (2.2-4.2); Glucose 173 mg/dL (74-106); Lipase 236 U/L (73-393); Potassium 4.4 mmol/L (3.5-5.1); Protein, Total 7.7 g/dL (6.4-8.2); Sodium Level 138 mmol/L (136-145); Troponin-I HS 12 pg/mL (3.0-78.0)
--- NOTE | 2022-10-17 19:05 | RAD_ITS ---
EXAM: XR CHEST, 1 VIEW CLINICAL INDICATION: chest pain TECHNIQUE: Frontal view of the chest. This report was created using [employer] report generation technology. COMPARISON: 02/20/2022 FINDINGS: LUNGS AND PLEURAL SPACES: Unremarkable. No consolidation or edema. No pneumothorax. No effusion. HEART: Unremarkable. Cardiac silhouette not enlarged. MEDIASTINUM: Central airways and mediastinal contour are unremarkable. BONES/JOINTS: Unremarkable. SOFT TISSUES: Unremarkable. RAD/Chest 1 View (Portable) IMPRESSION: No radiographic evidence of acute cardiopulmonary disease. Electronically Signed: Gutierrez Miranda MD at 19:21 EST ,
[2022-10-17 19:30] VITALS: BP 172/97; PULSE 121; O2SAT 96
[2022-10-17 20:17] LABS: Mucous, Urine 0 SEEN /hpf (<or=2+); Red Blood Cells-Urine 0 SEEN /hpf (0-5); Squamous Epithelial Cells - UA 0 SEEN /hpf (0-5)
[2022-10-17 20:19] LABS: Color, Urine Yellow (Yellow); Glucose, Dipstick 100 mg/dl (Normal); Ketone-Dipstick Negative (Negative); Leukocyte Esterase-Dipstick Negative /ul (Negative); Nitrite-Dipstick Negative (Negative); Occult Blood-Urine Negative /ul (Negative); Protein-Dipstick 30 mg/dl (Negative); Specific Gravity, Urine 1.025 (1.002-1.030); Urine Bilirubin Dipstick Negative (Negative); Urine Clarity Clear (Clear); Urine Urobilinogen Normal (Normal)
[2022-10-17] MEDS: LORazepam 2 MG/ML Syringe IV (20:21)
[2022-10-17 20:30] LABS: Bacteria RARE /hpf (None Seen); White Blood Cells 0-5 SEEN /hpf (0-5)
[2022-10-17 20:38] VITALS: BP 206/119; PULSE 94; RESP 16; O2SAT 98
[2022-10-17] MEDS: Labetalol (Prefilled) 20 MG/4 ML IV (20:44)
[2022-10-17 21:00] VITALS: BP 142/96; PULSE 95; O2SAT 88; O2SAT 96
[2022-10-17 21:30] VITALS: BP 122/80; PULSE 84; O2SAT 98
[2022-10-17 23:43] VITALS: BP 127/75; PULSE 104; RESP 17; O2SAT 100
== END 2022-10-18 00:18 | disposition short-term general hospital (02) ==
PROVIDERS: Emergency Provider Emergency Medicine; PCP Physician Assistant; Visit Provider Emergency Medicine
DX: G40.201 Localization-related (focal) (partial) symptomatic epilepsy and epileptic syndromes with complex partial seizures, not intractable, with status epilepticus (principal); E11.9 Type 2 diabetes mellitus without complications; R13.10 Dysphagia, unspecified; R53.83 Other fatigue; I10 Essential (primary) hypertension; E78.5 Hyperlipidemia, unspecified; R10.9 Unspecified abdominal pain; I16.0 Hypertensive urgency
CPT/HCPCS: 70450; 71045; 74176; 80053; 81001; 83690; 84484; 85025; 87811; 93005; 99285; J7030; J7050; A4216; J2405

== ENCOUNTER 2023-11-30 12:41 | Emergency (ER) | payer MEDICARE, SELFPAY ==
[2023-11-30 12:42] VITALS: BP 192/113; PULSE 101; RESP 16; TEMP 36.2; O2SAT 99; BMI 32.8
--- NOTE | 2023-11-30 13:33 | ED.VIS.BACK ---
HPI History of Present Illness Chief Complaint: Back Informant: patient Onset/Context/Timing Onset: Days (6) Context: Gradual Onset Timing: Intermittent and Lasts (Several hours) Quality: Sharp Location: Lumbar and Right Leg Worsened by: improves with Nothing Relieved by: - (Heat) Associated Symptoms Associated Symptoms: Tingling, Radiation to Right Leg and Abdominal Pain; Negative for Numbness, Radiation to Left Leg, Fever, Dysuria, Unable to Ambulate, Unable to Transfer, Urinary Retention, Urinary Incontinence, Constipation or Fecal Incontinence Narrative Narrative: Patient presents with back pain that has been getting worse over the past 6 days. Patient states it has been intermittent. Patient states that has been constant since he woke up this morning. Patient describes the pain as sharp and stabbing. Patient states it is over the lower lumbar area. Patient states it radiates down his right leg. Patient does admit to some tingling in his right foot. Patient also admits to some tingling in his right hand. Patient denies any weakness. Patient states the pain radiates into his abdomen. Patient denies any nausea or vomiting. Patient denies any bowel or bladder changes. Patient denies any saddle anesthesia. Patient did drive himself to the emergency department and ambulated in the emergency department without difficulty [facility] Medical History Anxiety and depression Benign essential hypertension Blunt head trauma BPH (benign prostatic hyperplasia) COVID-19 [place] Diabetes Diabetes mellitus type 2 in obese Grade II diastolic dysfunction Hyperlipidemia Hypertension Iron deficiency anemia Pulmonary embolism TIA (transient ischemic attack) Home Medications metformin 500 mg tablet 2,000 mg PO DAILY blood sugar 01/20/21 [History Last Taken 06/06/22] bupropion HCl 150 mg 24 hr tablet, extended release 150 mg PO DAILY depression 04/15/21 [History Last Taken 06/06/22] zolpidem 10 mg tablet 10 mg PO QHS PRN Insomnia 04/15/21 [History Last Taken 06/05/22] duloxetine 30 mg capsule,delayed release 30 mg PO DAILY depression 09/05/21 [History Last Taken 06/06/22] hydrochlorothiazide 25 mg tablet 25 mg PO DAILY diuretic 09/05/21 [History Last Taken 06/06/22] metoprolol tartrate 50 mg tablet 50 mg PO BID blood pressure 09/05/21 [History Last Taken 06/06/22] tamsulosin 0.4 mg capsule 0.4 mg PO QHS urinary retention 09/05/21 [History Last Taken 06/05/22] empagliflozin 10 mg tablet (Jardiance) 10 mg PO ACHS 06/06/22 [History Last Taken 06/06/22] sildenafil 50 mg tablet 50 mg PO PRN PRN Sexual Activity 06/06/22 [History Last Taken Unknown] atorvastatin 80 mg tablet 80 mg PO QHS 30 days #30 tabs 06/07/22 [Rx Last Taken Unknown] insulin glargine-yfgn 100 unit/mL (3 mL) subcutaneous pen 42 unit (0.42 mL) subcut QHS #0 mL 06/07/22 [Rx Last Taken Unknown] insulin lispro 100 unit/mL subcutaneous pen (Humalog KwikPen (U-100) Insulin) 12 unit (0.12 mL) subcut TIDCM #0 mL 06/07/22 [Rx Last Taken Unknown] lisinopril 20 mg tablet 20 mg PO DAILY 30 days #30 tabs 06/07/22 [Rx Last Taken Unknown] hydrocodone-acetaminophen 5-325mg 5mg-325mg 1 tab PO Q6H PRN PRN Pain 3 days #10 TABLETS 11/30/23 [Rx Last Taken Unknown] Allergy/AdvReac Type Severity Reaction Status Date / Time Iodinated Contrast Media [CT] Allergy Rash Verified 11/30/23 12:44 iohexol [From Omnipaque] Allergy Rash Verified 11/30/23 12:44 Family History Mother Brain aneurysm age 65 with ruptured aneurysm. Father Diabetes Cancer Surgical History History of appendectomy History of back surgery History of knee joint replacement History of tonsillectomy Social History household members: spouse Smoking Status: Never smoker alcohol intake: never substance use type: does not use ROS ROS ED Constitutional Constitutional ED: Denies chills or fever(s) Eyes Eyes: Denies blurry vision or change in vision ENT ENT ED: Denies rhinorrhea or sore throat Cardiovascular Cardiovascular: Denies chest pain or palpitations Respiratory/Chest Respiratory/Chest: Denies cough or dyspnea Gastrointestinal Gastrointestinal: Reports abdominal pain; Denies nausea or vomiting Genitourinary Genitourinary ED: Denies dysuria or hematuria Musculoskeletal Musculoskeletal: Reports back pain; Denies neck pain Integumentary Denies abscess or rash Neurologic Neurologic: Reports headache(s) and paresthesias; Denies weakness Allergic/Immunologic Allergic/Immunologic ED: Denies mouth swelling or urticaria EXAM Physical Exam Const Vital Signs: 11/30/23 12:42 11/30/23 12:42 Temperature 97.1 F L 97.1 F L Temperature Source Temporal Temporal Pulse Rate 101 H 101 H Respiratory Rate 16 16 Blood Pressure 192/113 H 192/113 H Blood Pressure Mean 139 139 Pulse Ox 99 99 Oxygen Delivery Method Room Air Room Air Positive well nourished, well developed and obese General Appearance ED: well developed and NAD Nutritional Appearance: obese HEENT Reports moist mucous membranes Neck supple and no JVD Resp normal respiratory effort and clear to auscultation bilaterally Cardio regular rate and regular rhythm GI soft to palpation, non-tender and non-distended Back/Spine Back/Spine Narrative: There is tenderness and spasm of the lumbar paraspinal muscles. There is no midline tenderness. There is no bony crepitance or step-off. Range of motion was limited in all motions of the lumbar spine secondary to pain. Straight leg raises were negative bilaterally. Strength is 5/5 bilaterally in lower extremities. There are no sensory deficits noted. Deep tendon reflexes are 2/4 bilaterally in the lower extremities. Lumbar Spine / Lower Back: ROM limited and straight leg raise negative bilaterally Extremity normal to inspection Neuro oriented x3 and no sensory deficits noted Sensorium / Orientation: alert Motor Exam: strength 5/5 throughout Deep Tendon Reflexes: Rt Patellar (L4): 2+, Lt Patellar (L4): 2+, Rt Ankle (S1): 2+ and Lt Ankle (S1): 2+ Deep Tendon Reflexes Back: Rt Patellar (L4): 2+, Lt Patellar (L4): 2+, Rt Ankle (S1): 2+ and Lt Ankle (S1): 2+ Psych mental status grossly normal Skin no rashes or lesions noted MDM MDM MDM Narrative Medical decision making narrative: Differential diagnosis includes musculoskeletal strain, compression fracture, lumbar radiculopathy, and pyelonephritis. X-rays of the lumbar spine will be obtained to assess for compression fracture. Urinalysis will be obtained to assess for pyelonephritis. Lab Data Lab results narrative: Urinalysis was reviewed. There is no evidence of urinary tract infection or hematuria. Radiography X-Ray: LS SPine, Read by ED Physician, Read by Radiologist and DJD Diagnostic Testing: X-rays of the lumbar spine were obtained. There are 3 views. There are some degenerative changes noted. There is no acute fracture or spondylolisthesis noted. Radiologist also interpreted the x-rays and agrees. Treatment and Re-Evaluation Narrative: Patient was ordered a dose of morphine here. Patient did drive himself to the emergency department so this was held. Patient was advised of his findings. Patient was given a prescription for a short course of [place]. Patient was instructed use ice to the area. Patient was instructed to follow-up with his primary care physician in 3 to 5 days for reevaluation. Patient understood and was agreeable with the plan. All questions were answered. Discharge Plan Triage Chief Complaint: Back ED Provider: Feng Turner Dx/Rx/DC Orders Clinical Impression: Low back pain, Chronic back pain Instructions: ED Back Pain (Acute or Chronic) Prescriptions: New hydrocodone-acetaminophen [hydrocodone-acetaminophen] 5-325 mg tablet 1 tab PO Q6H PRN PRN (Reason: Pain) 3 Days Qty: 10 0RF No Action metformin 500 mg Tablet 2,000 mg PO DAILY zolpidem 10 mg tablet 10 mg PO QHS PRN (Reason: Insomnia) Patient Comments: TAKE 1 TABLET BY MOUTH ONCE DAILY AT BEDTIME NEEDED FOR INSOMNIA bupropion HCl 150 mg tablet extended release 24 hr 150 mg PO DAILY Patient Comments: TAKE 1 TABLET BY MOUTH ONCE DAILY hydrochlorothiazide 25 mg tablet 25 mg PO DAILY tamsulosin 0.4 mg capsule 0.4 mg PO QHS metoprolol tartrate 50 mg tablet 50 mg PO BID duloxetine 30 mg capsule,delayed release(DR/EC) 30 mg PO DAILY sildenafil 50 mg tablet 50 mg PO PRN PRN (Reason: Sexual Activity) Patient Comments: TAKE ONE TABLET BY MOUTH ONE HOUR BEFORE SEXUAL ACTIVITY. DO NOT USE MORE THAN ONE DOSE DAILY Jardiance 10 mg tablet 10 mg PO ACHS atorvastatin 80 mg Tablet 80 mg PO QHS 30 Days Qty: 30 0RF insulin glargine-yfgn 100 unit/mL (3 mL) Insulin Pen 42 unit subcut QHS Qty: 0 0RF insulin lispro [Humalog KwikPen Insulin] 100 unit/mL Insulin Pen 12 unit subcut TIDCM Qty: 0 0RF lisinopril 20 mg Tablet 20 mg PO DAILY 30 Days Qty: 30 0RF Primary Care Provider: Bella Prince Referrals: Bella Prince, PA [Primary Care Provider] - 3-5 Days Disposition Disposition: Home, Self Care
[2023-11-30] MEDS: Morphine 4 MG/ML Syringe IM (13:43)
--- NOTE | 2023-11-30 13:50 | RAD_ITS ---
STUDY: X-RAY - LUMBAR SPINE REASON FOR EXAM: Male, 63 years old. Six-day history of low back pain. TECHNIQUE: 3 view(s) of the lumbar spine were obtained. COMPARISON: Comparison is made with prior study November 21, 2014. FINDINGS: Normal lumbar lordosis. There is no substantial scoliosis. There is a normal alignment of the vertebrae. There is multilevel endplate spondylosis of the lumbar vertebrae. There is mild multi-level degenerative disc disease with multi-level disc space narrowing. The soft tissue structures are unremarkable. RAD/Lumbar Spine 2 or 3 Views IMPRESSION: Degenerative changes of the spine, as detailed above. Electronically Signed: Simón Ro MD at 14:07 EDT ,
[2023-11-30 13:51] LABS: Bacteria 0 SEEN /hpf (None Seen); Squamous Epithelial Cells - UA 0 SEEN /hpf (0-5); White Blood Cells 0 SEEN /hpf (0-5)
[2023-11-30 13:54] LABS: Color, Urine Yellow (Yellow); Glucose, Dipstick 100 mg/dl (Normal); Ketone-Dipstick Negative (Negative); Leukocyte Esterase-Dipstick Negative /ul (Negative); Nitrite-Dipstick Negative (Negative); Occult Blood-Urine Negative /ul (Negative); Protein-Dipstick 30 mg/dl (Negative); Specific Gravity, Urine 1.015 (1.002-1.030); Urine Bilirubin Dipstick Negative (Negative); Urine Clarity Clear (Clear); Urine Urobilinogen Normal (Normal)
[2023-11-30 14:01] LABS: Mucous, Urine RARE /hpf (<or=2+); Red Blood Cells-Urine 0-5 SEEN /hpf (0-5)
[2023-11-30 15:01] VITALS: BP 157/85; PULSE 89; RESP 18; TEMP 36.4; O2SAT 97
== END 2023-11-30 15:15 | disposition home or self-care (01) ==
LOC: ED 14:59
PROVIDERS: Emergency Provider Emergency Medicine; PCP Physician Assistant; Visit Provider Emergency Medicine
DX: M54.50 Low back pain, unspecified (principal); I11.0 Hypertensive heart disease with heart failure; I50.30 Unspecified diastolic (congestive) heart failure; E11.9 Type 2 diabetes mellitus without complications; Z79.4 Long term (current) use of insulin; G89.29 Other chronic pain; E78.5 Hyperlipidemia, unspecified; Z86.73 Personal history of transient ischemic attack (TIA), and cerebral infarction without residual deficits; Z79.84 Long term (current) use of oral hypoglycemic drugs; F41.8 Other specified anxiety disorders; Z79.899 Other long term (current) drug therapy; N40.0 Benign prostatic hyperplasia without lower urinary tract symptoms; Z90.49 Acquired absence of other specified parts of digestive tract; Z96.659 Presence of unspecified artificial knee joint
CPT/HCPCS: 72100; 81001; 96372; 99282

== ENCOUNTER 2025-08-21 13:16 | Observation (INO) | payer MEDICARE, SELFPAY ==
[2025-08-21] VITALS (15 sets, daily range): BP systolic 138–153; BP diastolic 76–100; PULSE 88–117; RESP 16–20; TEMP 36.1–36.7; O2SAT 92–99; BMI 29.4; BMI 30.8
--- NOTE | 2025-08-21 13:31 | CT_ITS ---
PROCEDURE: STROKE BRAIN/HEAD WITHOUT CONT 08/21/2025 REASON FOR EXAM: NEURO DEFICIT, ACUTE, STROKE SUSPECTED TECHNIQUE: Procedure Code: CTBR.ST Modality: CT Procedure: STROKE BRAIN/HEAD WITHOUT CONT Coronal and Sagittal reconstruction series were provided. One or more dose reduction techniques were used (e.g., Automated exposure control, adjustment of the mA and/or kV according to patient size, use of iterative reconstruction technique. RADIATION DOSE SUMMARY: CTDlvol: 44.99 mGy DLP: 880.47 mGycm COMPARISON: CT head 10/17/2022. FINDINGS: Brain: No acute territorial infarction. No acute intracranial hemorrhage. No mass-effect or midline shift. Diffuse white matter hypodensities which are nonspecific but likely due to chronic small-vessel ischemia. Parenchymal volume loss consistent with brain atrophy. No ventriculomegaly. The orbits are unremarkable. The craniocervical junction is unremarkable. CSF Spaces: Mild generalized cerebral atrophy Sinuses/Mastoids: Clear at visualized levels Bones: No acute bony abnormalities. CT/STROKE Brain/Head without Cont IMPRESSION: No acute intracranial abnormalities. Reading Location: [facility]
--- NOTE | 2025-08-21 13:31 | EKG12_ITS ---
Test Reason : Blood Pressure : */* mmHG Vent. Rate : 87 BPM Atrial Rate : 87 BPM P-R Int : 164 ms QRS Dur : 114 ms QT Int : 374 ms P-R-T Axes : 62 45 55 degrees QTcB Int : 450 ms Normal sinus rhythm Normal ECG When compared with ECG of 22-Aug-2025 01:53, MANUAL COMPARISON REQUIRED DATA IS UNCONFIRMED Confirmed by EMMA SHELBY, KELLY ([id number]), videotape editor JUAN JOSE DEGROOT ([id number]) on 08/27/2025 6:38:17 AM Referred By: Confirmed By: KELLY CARTER MD
--- NOTE | 2025-08-21 13:34 | ED.RN ---
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
[2025-08-21 13:41] LABS: Hematocrit 48.3 % (40-54); Hemoglobin 15.7 g/dL (13.0-16.5); Immature Granulocytes Count 0.050 X10^3/uL (0.0-0.0); Mean Corp Hgb Conc 32.5 g/dL (32-36); Mean Corpuscular Volume 83.4 fL (80-94); Mean Platelet Vol. 9.6 fl (6.2-12.0); NRBC Flagged by Analyzer 0 % (0-5); Platelet Count 304 K/mm3 (150-450); RBC Distribution Width CV 14.6 % (11.6-14.6); RBC Distribution Width SD 43.9 fl (35.1-43.9); Red Blood Count 5.79 M/mm3 (4.6-6.2); White Blood Count 8.9 K/mm3 (4.4-11.0)
[2025-08-21 13:46] LABS: Prothrombin Time (Protime)PT. 13.2 SECONDS (11.7-14.9)
[2025-08-21 13:47] LABS: Partial Thromboplast Time 30.2 Seconds (24.1-36.2)
[2025-08-21 14:00] LABS: Troponin T High Sensitivity 17 ng/L (<=22)
[2025-08-21 14:03] LABS: Anion Gap 12 (5-15); BUN 28 mg/dL (4-19); BUN/Creat Ratio 19.2 RATIO (10-20); Calcium,Total 10.1 mg/dL (7.6-11.0); Carbon Dioxide 24.5 mmol/L (21.0-32.0); Chloride 98 mmol/L (98-108); Estimated Creatinine Clearance 67.11 ml/min (50-250); Glucose 135 mg/dL (70-99); Potassium 4.8 mmol/L (3.3-5.1)
--- NOTE | 2025-08-21 14:03 | CT_ITS ---
PROCEDURE: CTA HEAD AND NECK W/ CONTRAST 08/21/2025 REASON FOR EXAM: STROKE TECHNIQUE: Procedure Code: CTCTA.HDNCK Modality: CT Procedure: CTA HEAD AND NECK W/ CONTRAST Multiplanar Sagittal and Coronal images were obtained. CONTRAST: Isovue 370 VOLUME: 75 mL One or more dose reduction techniques were used (e.g., Automated exposure control, adjustment of the mA and/or kV according to patient size, use of iterative reconstruction technique). RADIATION DOSE SUMMARY: CTDlvol: 19.17 mGy DLP: 775.29 mGycm COMPARISON: None. FINDINGS: Aortic Arch: Unremarkable. Brachiocephalic and Subclavians: Patent. RIGHT Carotid: Right CCA: Atherosclerotic changes without hemodynamically significant stenosis. Right ICA: Atherosclerotic changes causing 20% stenosis. Maximum stenosis (NASCET): 20% % Right ECA: Unremarkable LEFT Carotid: Left CCA: No hemodynamic significant stenosis. Left ICA: Atherosclerotic changes causing 30% stenosis Maximum stenosis (NASCET): 30% % Left ECA: Patent. Vertebrals: Patent. RIGHT Vertebral: Patent LEFT Vertebral: Patent Anatomy: [place] anatomy is normal. Aneurysm or avm: No intracranial aneurysms or large vascular malformations are identified. Anterior cerebral arteries: Unremarkable: Middle cerebral arteries: Unremarkable. Basilar artery: Unremarkable. Posterior cerebral arteries: Unremarkable. Other major branches of the posterior circulation: Unremarkable. Major venous structures: Unremarkable. Other findings: Neck: No lymphadenopathy. Lungs: Lung apices are clear. Bones: Bones are unremarkable. Status post ACDF C5 and C6. CT/CTA Head AND Neck W/ Contrast IMPRESSION: CTA head: No significant stenosis. No aneurysm. CTA neck: Atherosclerotic changes causing 20-30% stenosis of the internal carot id arteries. Findings were discussed with Dr. Marques on 08/21/2025. 3:05 p.m. Reading Location: [facility]
--- NOTE | 2025-08-21 14:15 | RAD_ITS ---
PROCEDURE: CHEST 1 VIEW 08/21/2025 REASON FOR EXAM: NEURO DEFICIT, ACUTE, STROKE SUSPECTED TECHNIQUE: Frontal view of the chest. COMPARISON: October 17, 2022 FINDINGS: Hardware: Lower cervical spine fusion. EKG lead. Heart: The heart size is normal. Lungs: The lungs are clear. Bones: The bones are unremarkable. RAD/Chest 1 View IMPRESSION: No acute abnormality Reading Location: [id number]
[2025-08-21] MEDS: DiphenhydrAMINE 50 MG/ML Syringe 25 MG IV (14:20)
[2025-08-21 15:58] LABS: Color, Urine Yellow (Yellow); Glucose, Dipstick 1000 mg/dl (Normal); Ketone-Dipstick Negative (Negative); Leukocyte Esterase-Dipstick 25 /ul (Negative); Nitrite-Dipstick Negative (Negative); Occult Blood-Urine Negative /ul (Negative); Protein-Dipstick 15 mg/dl (Negative); Specific Gravity, Urine 1.020 (1.002-1.030); Urine Bilirubin Dipstick Negative (Negative)
[2025-08-21 16:04] LABS: Mucous, Urine 0 SEEN /hpf (<or=2+); Red Blood Cells-Urine 0 SEEN /hpf (0-5)
[2025-08-21 16:23] LABS: Troponin T High Sens 2 HR 16 ng/L (<=22)
--- NOTE | 2025-08-21 16:27 | PCM.HP.STD ---
[facility] Date of Admission: 08/21/25 Date of Service: 08/21/25 Chief Complaint: Expressive aphasia, right sided weakness and intention tremor [facility] Narrative ASHWINI HAYES, is a 65-year-old male with a history of depression, BPH, diabetes, hypertension, TIA presented [facility] ED 08/21/2025 as a stroke alert. Reportedly he was driving at 10 AM became suddenly confused, was unable to find words and again having right arm weakness and twitching. In the ED temp 97, heart rate 115, blood pressure 151/91, respiratory 18 pulse ox 97% on room air. CBC unremarkable, BMP with a BUN of 28 and a creatinine of 1.43, 2 years ago creatinine 1.66. Glucose 135. Troponin of 17. Chest x-ray no acute abnormalities. Brain CT with no acute intracranial abnormalities. CTA head and neck no LVO or hemodynamically significant stenosis. Hospitalist contacted for admission for stroke rule out. Patient evaluated bedside with present. Pt reports around 10 AM he began having difficulty getting his words out and was confused and had some right sided weakness and tremor. Said initially got better and then got worse but now he is almost back to baseline and is not having difficulty getting his words out and reports improvement in confusion and strength but does still have tremor in right upper extremity, did not appreciate any tremor except when he was moving it for [id number]. He notes he was told during his hospitalization at [facility] Several weeks ago that he did have a stroke, at the time he had word finding difficulties as well but symptoms completely resolved. He is on aspirin and Plavix and statin. Notes for the past couple of days he has had intermittent left-sided headache that is somewhat sharp in nature but usually does not have headaches. Noted shortly before symptoms started today he felt little bit short of breath and had chest tightness. Notes occasionally he will get intermittent shortness of breath but none at time of exam. [facility] Medical History Anxiety and depression Benign essential hypertension Blunt head trauma BPH (benign prostatic hyperplasia) COVID-19 long hauler Diabetes Diabetes mellitus type 2 in obese Grade II diastolic dysfunction Hyperlipidemia Hypertension Iron deficiency anemia Pulmonary embolism TIA (transient ischemic attack) Home Medications ?Medication ?Instructions ?Recorded ?Last Taken ?Type metformin 500 mg tablet 2,000 mg PO DAILY blood sugar 01/20/21 08/20/25 History duloxetine 30 mg capsule,delayed 30 mg PO DAILY depression 09/05/21 08/20/25 History release metoprolol tartrate 50 mg tablet 50 mg PO BID blood pressure 09/05/21 08/20/25 History tamsulosin 0.4 mg capsule 0.8 mg PO QHS urinary retention 09/05/21 08/20/25 History atorvastatin 80 mg tablet 80 mg PO QHS cholesterol 30 days 06/07/22 08/20/25 Rx #30 tabs amitriptyline 50 mg tablet 50 mg PO QHS depression 08/21/25 08/20/25 History clopidogrel 75 mg tablet 75 mg PO DAILY stroke 08/21/25 08/20/25 History dulaglutide 4.5 mg/0.5 mL 0.75 mg subcut QWEEK blood sugar 08/21/25 08/19/25 History subcutaneous pen injector (Trulicity) empagliflozin 25 mg tablet 25 mg PO DAILY heart 08/21/25 Unknown History (Jardiance) finasteride 5 mg tablet 5 mg PO DAILY prostate 08/21/25 08/20/25 History gabapentin 400 mg capsule 400 mg PO BID pain 08/21/25 Unknown History insulin glargine-yfgn 100 unit/mL 24 unit subcut QHS blood sugar 08/21/25 08/20/25 History (3 mL) subcutaneous pen Allergy/AdvReac Type Severity Reaction Status Date / Time COVID-19 (SARS-CoV-2) Allergy seizure Verified 08/21/25 13:29 vaccine, tami Iodinated Contrast Media (CT) Allergy Rash Verified 08/21/25 13:29 iohexol (From Omnipaque) Allergy Rash Verified 08/21/25 13:29 Family History Mother Brain aneurysm age 65 with ruptured aneurysm. Father Diabetes Cancer Surgical History History of appendectomy History of back surgery History of knee joint replacement History of tonsillectomy Social History household members: spouse Smoking Status: Never smoker alcohol intake: never substance use type: does not use ROS ROS Narrative General: Denies fever/chills HENT: Has intermittent left-sided headache, denies stuffy nose, denies sore throat EYES: Denies changes in vision Resp: Denies cough, intermittently feel a bit short of breath Cardiac: Had a little bit of chest squeezing and shortness of breath shortly before episode earlier today GI: Denies abdominal pain, denies changes in bowel, denies nausea/vomiting : Has had some burning on urination since he was admitted in [place] with no changes Extremity: Denies swelling MSK: Feels somewhat generally weak Neuro: Denies any numbness/tingling, notes tremor in right arm particularly when moving it Heme: Denies any bleeding or bruising Skin: Denies rashes Psychiatric: No complaints voiced Vital Signs Vital Signs Vital Signs: 08/21/25 13:23 08/21/25 13:31 08/21/25 13:31 Temperature 97 F L Temperature Source Temporal Pulse Rate 115 H 103 H Respiratory Rate 18 20 H Blood Pressure 151/91 H 140/100 H Blood Pressure Mean 111 113 Pulse Ox 97 98 Oxygen Delivery Method Room Air Room Air 08/21/25 13:38 08/21/25 14:01 08/21/25 14:16 Temperature 98 F Temperature Source Oral Pulse Rate 102 H 100 100 Respiratory Rate 18 20 H 18 Blood Pressure 140/92 H 141/95 H 141/95 H Blood Pressure Mean 108 110 110 Pulse Ox 99 98 99 Oxygen Delivery Method Room Air 08/21/25 14:30 08/21/25 15:00 08/21/25 15:00 Temperature Temperature Source Pulse Rate 90 98 98 Respiratory Rate 20 H 16 16 Blood Pressure 146/92 H 138/90 H 138/90 H Blood Pressure Mean 110 106 106 Pulse Ox 98 99 98 Oxygen Delivery Method 08/21/25 15:30 08/21/25 16:00 Temperature Temperature Source Pulse Rate 89 89 Respiratory Rate 16 20 H Blood Pressure 146/94 H 146/94 H Blood Pressure Mean 111 111 Pulse Ox 95 96 Oxygen Delivery Method Room Air Room Air Weight Weight: 104 kg Body Mass Index (BMI) 29.4 Physical Exam Narrative General: Alert, answered questions appropriately, seemed to have a delay when following commands but ultimately was able to do so HEENT: Atraumatic, normocephalic Eyes: Anicteric, normal conjunctiva, patient had difficulty following the command to follow my finger but was able to look left or right, did not appreciate any nystagmus, pupils equal Neck: Supple Respiratory: Clear to auscultation bilaterally, normal respiratory effort Cardiovascular: Regular rate and rhythm GI: Soft, nontender, nondistended Extremities: No edema Musculoskeletal: Strength 5 out of 5 in right upper extremity, 5 out of 5 left upper extremity, 5- out of 5 right lower extremity, 5- out of 5 left lower extremity. Of note in lower extremities he was slow to lift them off the bed and while he was able to and was able to do so against resistance he reported subjectively feeling generally weak Neuro:cranial nerves II through XII intact, difficulty with finger-nose specifically on the right with significant dysmetria and tremor, little bit of dysmetria on left side Skin: No rashes appreciated Psych: Cooperative Results Lab / Micro Data 08/21/25 13:25 08/21/25 13:25 Labs: Laboratory Results - last 24 hr 08/21/25 13:25: WBC 8.9, RBC 5.79, Hgb 15.7, Hct 48.3, MCV 83.4, MCH 27.1, MCHC 32.5, RDW Std Deviation 43.9, RDW Coeff of Melanie 14.6, Plt Count 304, MPV 9.6, Immature Gran % (Auto) 0.600, Neut % (Auto) 57.0, Lymph % (Auto) 32.2, [place] % (Auto) 6.6, Eos % (Auto) 3.0, Baso % (Auto) 0.6, Absolute Neuts (auto) 5.1, Absolute Lymphs (auto) 2.87, Nucleated RBC % 0, PT 13.2, INR 1.0, APTT 30.2, Sodium 134, Potassium 4.8, Chloride 98, Carbon Dioxide 24.5, Anion Gap 12, BUN 28 H, Creatinine 1.43 H, Estim Creat Clear Calc 67.11, Est GFR (MDRD) Non-Af 55 L, BUN/Creatinine Ratio 19.2, Glucose 135 H, Calcium 10.1, Troponin T High Sens 17 08/21/25 15:41: Troponin T Hi Sens 2 Hr 16, Urine Color Yellow, Urine Clarity Clear, Urine pH 5.0, Ur Specific [place] 1.020, Urine Protein 15 H, Urine Glucose (UA) 1000 H, Urine Ketones Negative, Urine Occult Blood Negative, Urine Nitrite Negative, Urine Bilirubin Negative, Urine Urobilinogen Normal, Ur Leukocyte Esterase 25 H Imaging Radiology Impression Brain CT 08/21/25 13:31 IMPRESSION: No acute intracranial abnormalities. Reading Location: [facility] Head/Neck CTA 08/21/25 14:03 IMPRESSION: CTA head: No significant stenosis. No aneurysm. CTA neck: Atherosclerotic changes causing 20-30% stenosis of the internal carotid arteries. Findings were discussed with Dr. Marques on 08/21/2025. 3:05 p.m. Reading Location: [facility] Chest X-Ray 08/21/25 14:15 IMPRESSION: No acute abnormality Reading Location: [facility] Assessment & Plan Assessment/Plan (1) Neurologic abnormality: PLAN: Plan # Right arm weakness, expressive aphasia, confusion -LKW 1000, given recent CVA TNK was not recommended by stroke neurologist, additionally, pt has had significant improvement in symptoms -Weakness and expressive aphasia resolved, does not seem confused but had a little bit of difficult time processing commands and executing them but ultimately was able to. Has some generalized weakness and does have intention tremor in right upper extremity and some dysmetria in left though less so than right. Did not appreciate any resting tremor -Admit to tele -CT head read w/ no acute process however stroke teleneurologist thought that there may be a lesion in the basal ganglia on the left unclear if this is subacute/chronicity -CTA head and neck no LVO or hemodynamically significant stenosis -MRI ordered -NIH q4hr -asa, Plavix, statin -Echo -PT/OT/Speech eval -Teleneuro consult placed -Hold BP medications to allow for permissive hypertension for 24 hours unless SBP greater than 220 or DBP greater than 120 or until stroke is ruled out -Patient does report he had little bit of chest tightness and shortness of breath shortly before symptoms started, unclear if maybe he has paroxysmal A-fib, is in sinus rhythm in the ED # History of CVA -Per patient he was told that he had a stroke and was shown the image when he was at [place] and that he was told he had likely had a previous stroke as well -On Plavix, aspirin, statin -Management of acute presentation as above -Monitor on tele for underlying pafib, presently NSR #Chronic BPH with obstruction -Continue home medications #Type 2 diabetes mellitus -Glucose checks and sliding scale insulin - Continue long-acting insulin but at lower dose to avoid hypoglycemia and uptitrate as tolerated #Hypertension - Holding home medications as above #DVT ppx: SCDs Estefani Zamora MD Charges/Coding Visit Charges Inpatient E&M: 82157 Init Hosp L2
[2025-08-21 16:29] LABS: Squamous Epithelial Cells - UA 0-5 SEEN /hpf (0-5); Yeast-Urine RARE /hpf (None Seen)
--- NOTE | 2025-08-21 16:35 | ED.VIS.STROK ---
HPI History of Present Illness Chief Complaint: Stroke Alert Informant: patient and family Narrative Narrative: 65-year-old male presenting to the emergency room out of concern for stroke. Patient states that 10:00 this morning he was driving when he began to have weakness in the bilateral arms and legs as well as speech difficulty in terms of finding words. He was recently been admitted to [facility] ordered during that hospitalization was reportedly had a stroke. He was reportedly started on Plavix. Unfortunately I do not have immediate access to the this information of his symptomology. Coworkers bring him to the department. He states that his speech is better but he feels globally weak in both the upper and lower legs and is having twitching of them. Apparently he was at [facility] where he had a infection to the urine from prostate biopsy and is now on outpatient antibiotics [facility] Medical History Hypertension Blunt head trauma COVID-19 long hauler Pulmonary embolism Diabetes TIA (transient ischemic attack) Grade II diastolic dysfunction Diabetes mellitus type 2 in obese Hyperlipidemia BPH (benign prostatic hyperplasia) Anxiety and depression Iron deficiency anemia Benign essential hypertension Home Medications ?Medication ?Instructions ?Recorded ?Last Taken ?Type metformin 500 mg tablet 2,000 mg PO DAILY blood sugar 01/20/21 08/20/25 History duloxetine 30 mg capsule,delayed 30 mg PO DAILY depression 09/05/21 08/20/25 History release metoprolol tartrate 50 mg tablet 50 mg PO BID blood pressure 09/05/21 08/20/25 History tamsulosin 0.4 mg capsule 0.8 mg PO QHS urinary retention 09/05/21 08/20/25 History atorvastatin 80 mg tablet 80 mg PO QHS cholesterol 30 days 06/07/22 08/20/25 Rx #30 tabs amitriptyline 50 mg tablet 50 mg PO QHS depression 08/21/25 08/20/25 History clopidogrel 75 mg tablet 75 mg PO DAILY stroke 08/21/25 08/20/25 History dulaglutide 4.5 mg/0.5 mL 0.75 mg subcut QWEEK blood sugar 08/21/25 08/19/25 History subcutaneous pen injector (Trulicity) empagliflozin 25 mg tablet 25 mg PO DAILY heart 08/21/25 Unknown History (Jardiance) finasteride 5 mg tablet 5 mg PO DAILY prostate 08/21/25 08/20/25 History gabapentin 400 mg capsule 400 mg PO BID pain 08/21/25 Unknown History insulin glargine-yfgn 100 unit/mL 24 unit subcut QHS blood sugar 08/21/25 08/20/25 History (3 mL) subcutaneous pen Allergy/AdvReac Type Severity Reaction Status Date / Time COVID-19 (SARS-CoV-2) Allergy seizure Verified 08/21/25 13:29 vaccine, tami Iodinated Contrast Media (CT) Allergy Rash Verified 08/21/25 13:29 iohexol (From Omnipaque) Allergy Rash Verified 08/21/25 13:29 Family History Mother Brain aneurysm age 65 with ruptured aneurysm. Father Diabetes Cancer Surgical History History of back surgery History of appendectomy History of tonsillectomy History of knee joint replacement Social History household members: spouse Smoking Status: Never smoker alcohol intake: never substance use type: does not use ROS ROS ED Constitutional Constitutional ED: Denies chills or weight loss Eyes Eyes: Denies change in vision or diplopia ENT ENT ED: Denies ear pain, rhinorrhea or sore throat Cardiovascular Cardiovascular: Denies chest pain, orthopnea, palpitations or racing heartbeat Respiratory/Chest Respiratory/Chest: Denies cough, dyspnea or orthopnea Gastrointestinal Gastrointestinal: Denies abdominal pain, diarrhea, nausea or vomiting Genitourinary Genitourinary ED: Denies dysuria, hematuria or urinary frequency Musculoskeletal Musculoskeletal: Denies arthralgias or myalgias Integumentary Denies abscess or rash Neurologic Neurologic: Reports headache(s), weakness and other Details: Speech difficulty Psychiatric Psychiatric: Denies anxiety, depression, suicidal ideation or suicidal thoughts Endocrine Endocrinology: Denies polydipsia, polyphagia or polyuria Allergic/Immunologic Allergic/Immunologic ED: Denies mouth swelling, tongue swelling or urticaria EXAM Physical Exam Const Vital Signs: 08/21/25 13:23 08/21/25 13:31 08/21/25 13:31 Temperature 97 F L Temperature Source Temporal Pulse Rate 115 H 103 H Respiratory Rate 18 20 H Blood Pressure 151/91 H 140/100 H Blood Pressure Mean 111 113 Pulse Ox 97 98 Oxygen Delivery Method Room Air Room Air 08/21/25 13:38 08/21/25 14:01 08/21/25 14:16 Temperature 98 F Temperature Source Oral Pulse Rate 102 H 100 100 Respiratory Rate 18 20 H 18 Blood Pressure 140/92 H 141/95 H 141/95 H Blood Pressure Mean 108 110 110 Pulse Ox 99 98 99 Oxygen Delivery Method Room Air 08/21/25 14:30 08/21/25 15:00 08/21/25 15:00 Temperature Temperature Source Pulse Rate 90 98 98 Respiratory Rate 20 H 16 16 Blood Pressure 146/92 H 138/90 H 138/90 H Blood Pressure Mean 110 106 106 Pulse Ox 98 99 98 Oxygen Delivery Method 08/21/25 15:30 08/21/25 16:00 08/21/25 16:30 Temperature Temperature Source Pulse Rate 89 89 89 Respiratory Rate 16 20 H 19 H Blood Pressure 146/94 H 146/94 H 142/76 H Blood Pressure Mean 111 111 98 Pulse Ox 95 96 98 Oxygen Delivery Method Room Air Room Air Room Air Positive well nourished and well developed General Appearance ED: well developed and NAD HEENT Reports normocephalic, head/scalp atraumatic and moist mucous membranes Eyes PERRL and EOMs intact bilaterally Neck no lymphadenopathy, supple and no JVD Resp normal respiratory effort and clear to auscultation bilaterally Cardio regular rate, regular rhythm and no murmurs GI normal to inspection, nondistended, normoactive bowel sounds and non-tender Palpation: soft Back/Spine no CVA tenderness and normal ROM Extremity normal to inspection General Extremety ED: Negative for edema General Extremity: Negative for edema Neuro oriented x3 and CN's II-XII intact bilaterally Neuro Narrative: Occasional myoclonic jerk upper extremities. Patient is able to lift his legs up off the wheelchair (flexion at hip). He is able to squeeze lightly with both hands. Sensorium / Orientation: alert Motor Exam: general weakness Psych mental status grossly normal Mood & Affect: Negative for depressed or tearful Skin no rashes or lesions noted and no wounds MDM MDM MDM Narrative Medical decision making narrative: Differential diagnosis includes hemorrhagic and thrombotic stroke large vessel occlusion seizure disorder electrolyte abnormalities sepsis UTI Stroke team was called by nursing. He was taken down to the CT scanner where initial head CT was read by radiology is not acute. He reports an allergy to IV contrast dye will need to be premedicated. He was evaluated by [facility] tel[facility] was concerned about a subacute versus acute stroke on the left near the basal ganglia. It was felt that he would be increased risk of bleed with tPA if he did have a subacute while at [facility]. CTA does not demonstrate an LVO. Basic blood work was obtained shows a creatinine 1.43. White count 5-10 with 1+ bacteria and he is on antibiotics. Patient's evaluation in the emergency department has been difficult due to the fragmented care being at [facility] And lack of specific readily available information. History & Record Review Discussion w/independent historian: Patient Additional record(s) reviewed:: Prior inpatient record, Prior outpatient record and Prior labs Lab Data Attestation: I reviewed the patient's lab results. Labs: Laboratory Results - last 24 hr 08/21/25 08/21/25 13:25 15:41 WBC 8.9 RBC 5.79 Hgb 15.7 Hct 48.3 MCV 83.4 MCH 27.1 MCHC 32.5 RDW Std Deviation 43.9 RDW Coeff of Melanie 14.6 Plt Count 304 MPV 9.6 Immature Gran % (Auto) 0.600 Neut % (Auto) 57.0 Lymph % (Auto) 32.2 [place] % (Auto) 6.6 Eos % (Auto) 3.0 Baso % (Auto) 0.6 Absolute Neuts (auto) 5.1 Absolute Lymphs (auto) 2.87 Nucleated RBC % 0 PT 13.2 INR 1.0 APTT 30.2 Sodium 134 Potassium 4.8 Chloride 98 Carbon Dioxide 24.5 Anion Gap 12 BUN 28 H Creatinine 1.43 H Estim Creat Clear Calc 67.11 Est GFR (MDRD) Non-Af 55 L BUN/Creatinine Ratio 19.2 Glucose 135 H Calcium 10.1 Troponin T High Sens 17 Troponin T Hi Sens 2 Hr 16 Urine Color Yellow Urine Clarity Clear Urine pH 5.0 Ur Specific [place] 1.020 Urine Protein 15 H Urine Glucose (UA) 1000 H Urine Ketones Negative Urine Occult Blood Negative Urine Nitrite Negative Urine Bilirubin Negative Urine Urobilinogen Normal Ur Leukocyte Esterase 25 H Urine RBC 0 SEEN Urine WBC 5-10 SEEN Ur Squamous Epith Cells 0-5 SEEN Urine Bacteria 1+ Urine Mucus 0 SEEN Urine Yeast RARE Radiography Diagnostic Testing: Clinical Impression(s) from Imaging Studies Brain CT 08/21/25 13:31 IMPRESSION: No acute intracranial abnormalities. Reading Location: [facility] Head/Neck CTA 08/21/25 14:03 IMPRESSION: CTA head: No significant stenosis. No aneurysm. CTA neck: Atherosclerotic changes causing 20-30% stenosis of the internal carotid arteries. Findings were discussed with Dr. Marques on 08/21/2025. 3:05 p.m. Reading Location: [facility] Chest X-Ray 08/21/25 14:15 IMPRESSION: No acute abnormality Reading Location: [facility] EKG Initial EKG: Attestation: I personally reviewed and interpreted this EKG as follows: Comments: Sinus tachycardia ventricular rate of 102 bpm Management Discussion w/another healthcare provider: Hospitalist (Dr. Zamora), Rn Visiting ([facility] teleneurology) and Radiologist Critical Care Time Critical Care Time: Yes Critical care time (excluding procedures): 30-74 minutes (35), Discussing w/Patient &/or Family/Gravity Prospecting Observer Helper, Discussing w/Consultants, Arranging Admission or Transfer and Performing Direct Patient Care at Bedside Discharge Plan Dx/Rx/DC Orders Clinical Impression: Stroke, Chronic kidney disease, Obesity (BMI 30.0-34.9) Disposition Disposition: Acute Care Hospital [facility] NIHSS NIHSS 1a. Level of Consciousness: 0 - Alert; keenly responsive 1b. LOC Questions: 0 - Answers BOTH questions correctly 1c. LOC Commands: 0 - Performs BOTH tasks correctly 2. Best Gaze: 0 - Normal 3. Visual: 0 - No visual loss 4. Facial Palsy: 0 - Normal symmetrical movements 5a. Left Arm: 3 - No effort against gravity; arm falls 5b. Right Arm: 3 - No effort against gravity; arm falls 6a. Left Le - Some effort against gravity; 6b. Right Le - Some effort against gravity; 7. Limb Ataxia: 0 - Absent 8. Sensory: 0 - Normal; no sensory loss 9. Best Language: 0 - No aphasia; normal 10. Dysarthria: 0 - Normal 11. Extinction and Inattention: 0 - No abnormality Total: 10
--- NOTE | 2025-08-21 17:24 | MRI_ITS ---
PROCEDURE: MRI BRAIN WITHOUT CONTRAST 08/21/2025 REASON FOR EXAM: CONCERN FOR CVA TECHNIQUE: Procedure Code: MRIBR Modality: MR Procedure: BRAIN WITHOUT CONTRAST Multiplanar and multisequential MRI of the brain was performed without contrast. COMPARISON: CT head/angiography 08/21/2025. Brain MRI 06/07/2022. FINDINGS: No regions of abnormal restricted diffusion to indicate recent infarct. No evidence of acute intracranial hemorrhage, extra-axial collection, mass-effect, or other acute abnormality. Ventricular and sulcal size and configuration appear within normal limits. Few scattered small foci of T2 FLAIR hyperintensity in the supratentorial white matter, nonspecific but most likely related to mild chronic microangiopathic changes. Chronic lacunar infarct in the left frontal periventricular white matter. Preserved major intracranial vascular flow voids. Grossly unremarkable orbits. Well-aerated paranasal sinuses and bilateral mastoid air cells. MRI/Brain without Contrast IMPRESSION: No acute intracranial abnormality; No acute infarct. Mild chronic microangiopa thic changes, with a chronic lacunar infarct in the left frontal periventricular white matter, unchanged. Reading Location: [id number]
--- NOTE | 2025-08-21 17:24 | ECHOD_ITS ---
Reason For Study Reason For Study: TIA/CVA Procedure This was a 2D Doppler, Color Flow transthoracic echocardiogram. Exam performed portable in patient room. Left Ventricle Normal size left ventricle. Left ventricular EF by Jackson biplane: 63%. Normal diastolic function. No regional wall motion abnormalities noted. Right Ventricle Normal right ventricle. Unable to estimate RV systolic pressure due to insufficient tricuspid regurgitant envelope. Normal systolic function. Atria The left and right atria are normal. Right atrial pressure estimated at: 3 mmHg. Normal atrial septum. Mitral Valve Normal mitral valve. No mitral regurgitation. No mitral stenosis. Tricuspid Valve Normal tricuspid valve. No tricuspid stenosis. No tricuspid regurgitation. Aortic Valve Trileaflet aortic valve. Calcified right coronary cusp. No hemodynamically significant aortic stenosis. No aortic regurgitation. Pulmonic Valve Normal pulmonic valve. No pulmonic stenosis. Trace pulmonic regurgitation. Great Vessels Normal sized aortic root. Normal ascending aorta. Pericardium/Pleural No pericardial effusion. MMode/2D Measurements & Calculations LVIDd: 4.8 cm IVSd: 1.3 cm Ao root diam: 3.4 cm LVIDs: 2.9 cm LVPWd: 1.3 cm RVDd: 3.8 cm FS: 39.8 % LAV(MOD-bp): 46.7 ml LVAd ap4: 36.6 cm2 LVAd ap2: 34.0 cm2 LAV(MOD-bp) Indexed: 19.9 ml/m2 LVLd ap4: 9.5 cm LVLd ap2: 9.4 cm LAV(MOD-sp2): 45.1 ml EDV(MOD-sp4): 119.1 ml EDV(MOD-sp2): 99.6 ml LAV(MOD-sp4): 45.2 ml EDV(sp4-el): 119.5 ml EDV(sp2-el): 103.9 ml LVAs ap4: 19.9 cm2 LVAs ap2: 18.1 cm2 LVLs ap4: 7.6 cm LVLs ap2: 8.1 cm ESV(MOD-sp4): 45.4 ml ESV(MOD-sp2): 33.6 ml ESV(sp4-el): 44.1 ml ESV(sp2-el): 34.3 ml EF(MOD-sp4): 61.9 % EF(MOD-sp2): 66.3 % EF(sp4-el): 63.1 % SV(MOD-sp4): 73.7 ml SV(MOD-sp2): 66.0 ml EDV(MOD-bp): 108.3 ml SI(MOD-sp4): 31.4 ml/m2 SI(MOD-sp2): 28.1 ml/m2 ESV(MOD-bp): 40.2 ml EF(MOD-bp): 62.9 % SV(sp4-el): 75.4 ml LA dimension(2D): 3.9 cm LA A4 area: 16.9 cm2 RA A4 area: 14.3 cm2 TAPSE: 2.0 cm Time Measurements MV dec time: 0.27 sec Doppler Measurements & Calculations MV E max td: 83.4 cm/sec Lat Peak E' Td: 8.5 cm/sec Med Peak E' Td: 8.3 cm/sec MV A max td: 108.0 cm/sec E/E' lat: 9.9 E/E' med: 10.1 MV E/A: 0.77 MV V2 max: 101.9 cm/sec MV P1/2t max td: 85.4 cm/sec Ao V2 max: 134.7 cm/sec MV max P.2 mmHg MV P1/2t: 57.3 msec Ao max P.3 mmHg MV V2 mean: 65.0 cm/sec Ao V2 mean: 94.5 cm/sec MV mean P.9 mmHg MV dec slope: 436.5 cm/sec2 Ao mean P.1 mmHg MV V2 VTI: 24.2 cm MVA(P1/2t): 3.8 cm2 Ao V2 VTI: 27.5 cm AV (velocity ratio): 0.64 LV V1 max: 87.2 cm/sec PA V2 max: 111.0 cm/sec LV V1 max P.0 mmHg PI dec slope: 138.5 cm/sec2 LV V1 mean P.7 mmHg LV V1 mean: 63.4 cm/sec LV V1 VTI: 17.5 cm ECHO/Echo Complete Interpretation Summary Normal left ventricular systolic function with EF by Jackson's biplane: 63% Normal left ventricular diastolic function Normal left ventricular wall motion Normal right ventricular systolic function No hemodynamically significant valvular disease Ordering Physician: Estefani Zamora Referring Physician: Susan Ridley Performed By: Shazia Katz, GORDY, RVT
--- NOTE | 2025-08-21 17:54 | NURSING ---
Addendum entered by Kenzie See 08/21/25 18:49: This RN made another call to [facility] to call neuro consult, placed on hold for 18 minutes with no answer. Original Note: Call placed to [facility] for neuro consult, placed on hold for 26 minutes with no answer.
--- NOTE | 2025-08-21 18:21 | NURSING ---
Pt taken to MRI at this time.
[2025-08-21 19:16] LABS: Troponin T High Sens 4 HR 16 ng/L (<=22)
[2025-08-21] MEDS: 0.9% Normal Saline (1000mL) 1,000 ML 75 ML IV (19:40)
--- NOTE | 2025-08-21 21:28 | CM.ED ---
Social Work Reason for visit: Stroke Alert SW responded to stroke alert in triage, took patients sister to ED room while patient was in imaging. Sister states that patient has been having medical concerns for about a month, had a previous stroke and has not yet been back to his norm. Sister states today that patient called her, confused and crying about their dad who had many years ago. Sister lives next door but was at work when patient called so she sent her daughter over to check on patient. Patients niece brought him to the ER and sister left work to be with patient. Emotional support provided. Jacquelyn Monahan, AVIATION NEUROPSYCHOLOGIST, ELECTRIC RAZOR ASSEMBLER
[2025-08-21] MEDS: MELATONIN 10 MG TABLET PO (22:30)
[2025-08-21] MEDS: Insulin Glargine-YFGN 100 UNIT/ML Pen 20 UNIT SC (22:30)
[2025-08-22] VITALS (10 sets, daily range): BP systolic 129–165; BP diastolic 54–101; PULSE 71–120; RESP 16–20; TEMP 36.2–36.6; O2SAT 92–100; BMI 30.8
--- NOTE | 2025-08-22 01:49 | EKG12_ITS ---
Test Reason : STROKE ALERT Blood Pressure : */* mmHG Vent. Rate : 102 BPM Atrial Rate : 102 BPM P-R Int : 158 ms QRS Dur : 100 ms QT Int : 338 ms P-R-T Axes : 43 -7 57 degrees QTcB Int : 440 ms Sinus tachycardia Otherwise normal ECG Confirmed by EMMA SHELBY, KELLY ([id number]), food editor JUAN JOSE DEGROOT ([id number]) on 08/27/2025 6:16:36 AM Referred By: Confirmed By: KELLY CARTER MD
--- NOTE | 2025-08-22 02:20 | PCM.HOSP.N ---
Hospitalist Note Patient with onset chest pain. EKG without acute findings. Admitted for CVA evaluation. SBP 120s. Will administer low dose fentanyl in order to avoid BP drop. Will cycle cardiac enzymes.
[2025-08-22] MEDS: fentaNYL 100 MCG/2 ML Ampul 25 MCG IV ×2 (02:35→04:56)
[2025-08-22 03:42] LABS: Troponin T High Sensitivity 10 ng/L (<=22)
[2025-08-22] MEDS: DiphenhydrAMINE 50 MG/ML Syringe 25 MG IV (04:57)
[2025-08-22] MEDS: 0.9% Saline Lock 10 ML Syringe IV (04:57)
[2025-08-22 05:23] LABS: Hematocrit 47.1 % (40-54); Hemoglobin 15.4 g/dL (13.0-16.5); Immature Granulocytes Count 0.100 X10^3/uL (0.0-0.0); Mean Corp Hgb Conc 32.7 g/dL (32-36); Mean Corpuscular Volume 82.6 fL (80-94); Mean Platelet Vol. 9.8 fl (6.2-12.0); NRBC Flagged by Analyzer 0 % (0-5); Platelet Count 360 K/mm3 (150-450); RBC Distribution Width CV 14.6 % (11.6-14.6); RBC Distribution Width SD 43.1 fl (35.1-43.9); Red Blood Count 5.70 M/mm3 (4.6-6.2); White Blood Count 14.3 K/mm3 (4.4-11.0)
[2025-08-22 05:45] LABS: Troponin T High Sens 2 HR 11 ng/L (<=22)
[2025-08-22 05:54] LABS: Cholesterol 224 mg/dL (<=200); Low Density Lipoprotein Calc. 169 mg/dL; Triglycerides 86 mg/dL; Very Low Density Lipoprotein 17 mg/dL (5-40); cholesterol:hdl ratio screen 5.63
[2025-08-22 06:01] LABS: Anion Gap 15 (5-15); BUN 33 mg/dL (4-19); BUN/Creat Ratio 22.6 RATIO (10-20); Calcium,Total 9.7 mg/dL (7.6-11.0); Carbon Dioxide 20.6 mmol/L (21.0-32.0); Chloride 98 mmol/L (98-108); Estimated Creatinine Clearance 67.14 ml/min (50-250); Glucose 234 mg/dL (70-99); Potassium 4.9 mmol/L (3.3-5.1)
[2025-08-22 06:52] LABS: Troponin T High Sens 4 HR 13 ng/L (<=22)
--- NOTE | 2025-08-22 09:03 | PN.HOSP_ITS ---
Reason for Visit Chief Complaint: Expressive aphasia, right sided weakness and intention tremor Subjective Subjective complains of dizziness upon standing. Objective Data Objective Data Vital Signs: Vital Signs Temp Pulse Resp BP Pulse Ox O2 Del Method O2 Flow Rate 36.6 C 98 16 165/94 H 95 Nasal Cannula 2 08/22/25 06:00 08/22/25 06:00 08/22/25 06:00 08/22/25 06:00 08/22/25 06:00 08/22/25 07:50 08/22/25 07:50 Oxygen Flow Rate (L/min) 2 Oxygen Delivery Method Nasal Cannula Weight: 108.862 kg Body Mass Index (BMI) 30.8 Intake & Output: Intake and Output for Last 24 Hours 08/20/25 08/21/25 08/22/25 23:59 23:59 23:59 Intake Total 240 / 680 880 / 880 Output Total 550 / 550 Balance 240 / 380 330 / 330 Lab / Micro Data 08/22/25 04:44 08/22/25 04:44 Labs: Laboratory Results - last 24 hr 08/21/25 13:25: WBC 8.9, RBC 5.79, Hgb 15.7, Hct 48.3, MCV 83.4, MCH 27.1, MCHC 32.5, RDW Std Deviation 43.9, RDW Coeff of Melanie 14.6, Plt Count 304, MPV 9.6, Immature Gran % (Auto) 0.600, Neut % (Auto) 57.0, Lymph % (Auto) 32.2, [place] % (Auto) 6.6, Eos % (Auto) 3.0, Baso % (Auto) 0.6, Absolute Neuts (auto) 5.1, Absolute Lymphs (auto) 2.87, Nucleated RBC % 0, PT 13.2, INR 1.0, APTT 30.2, Sodium 134, Potassium 4.8, Chloride 98, Carbon Dioxide 24.5, Anion Gap 12, BUN 28 H, Creatinine 1.43 H, Estim Creat Clear Calc 67.11, Est GFR (MDRD) Non-Af 55 L, BUN/Creatinine Ratio 19.2, Glucose 135 H, Hemoglobin A1c 7.8 H, Calcium 10.1, Troponin T High Sens 17 08/21/25 15:41: Troponin T Hi Sens 2 Hr 16, Urine Color Yellow, Urine Clarity Clear, Urine pH 5.0, Ur Specific [place] 1.020, Urine Protein 15 H, Urine Glucose (UA) 1000 H, Urine Ketones Negative, Urine Occult Blood Negative, Urine Nitrite Negative, Urine Bilirubin Negative, Urine Urobilinogen Normal, Ur Leukocyte Esterase 25 H, Urine RBC 0 SEEN, Urine WBC 5-10 SEEN, Ur Squamous Epith Cells 0-5 SEEN, Urine Bacteria 1+, Urine Mucus 0 SEEN, Urine Yeast RARE 08/21/25 17:59: Troponin T Hi Sens 4Hr 16 08/21/25 22:17: POC Glucose 298 H 08/22/25 02:44: Troponin T High Sens 10 D 08/22/25 04:44: WBC 14.3 H, RBC 5.70, Hgb 15.4, Hct 47.1, MCV 82.6, MCH 27.0, MCHC 32.7, RDW Std Deviation 43.1, RDW Coeff of Melanie 14.6, Plt Count 360, MPV 9.8, Immature Gran % (Auto) 0.700, Neut % (Auto) 81.0 H, Lymph % (Auto) 13.4 L, [place] % (Auto) 4.8, Eos % (Auto) 0.0, Baso % (Auto) 0.1, Absolute Neuts (auto) 11.6 H, Absolute Lymphs (auto) 1.91, Nucleated RBC % 0, Sodium 133, Potassium 4.9, Chloride 98, Carbon Dioxide 20.6 L, Anion Gap 15, BUN 33 H, Creatinine 1.46 H, Estim Creat Clear Calc 67.14, Est GFR (MDRD) Non-Af 53 L, BUN/Creatinine Ratio 22.6 H, Glucose 234 H, Calcium 9.7, Troponin T Hi Sens 2 Hr 11, Triglycerides 86, Cholesterol 224 H, LDL Cholesterol, Calc 169, VLDL Cholesterol 17, HDL Cholesterol 40, Cholesterol/HDL Ratio 5.63, TSH 0.829 08/22/25 06:27: Troponin T Hi Sens 4Hr 13 08/22/25 06:49: POC Glucose 201 H Radiography Diagnostic Testing: Radiology Impression Brain CT 08/21/25 13:31 IMPRESSION: No acute intracranial abnormalities. Reading Location: [facility] Head/Neck CTA 08/21/25 14:03 IMPRESSION: CTA head: No significant stenosis. No aneurysm. CTA neck: Atherosclerotic changes causing 20-30% stenosis of the internal carotid arteries. Findings were discussed with Dr. Marques on 08/21/2025. 3:05 p.m. Reading Location: [facility] Chest X-Ray 08/21/25 14:15 IMPRESSION: No acute abnormality Reading Location: [facility] Brain MRI 08/21/25 17:24 IMPRESSION: No acute intracranial abnormality; No acute infarct. Mild chronic microangiopathic changes, with a chronic lacunar infarct in the left frontal periventricular white matter, unchanged. Reading Location: [facility] Physical Exam Const alert and no apparent distress HEENT head/scalp atraumatic Eyes PERRL and EOMs intact bilaterally Eyes Narrative: no nystagmus Assessment & Plan Assessment/Plan (1) Neurologic abnormality: PLAN: Plan TIA * transient right arm weakness, expressive aphasia, confusion * -LKW 1000, given recent CVA TNK was not recommended by stroke neurologist, additionally, pt has had significant improvement in symptoms: Weakness and expressive aphasia resolved, does not seem confused but had a little bit of difficult time processing commands and executing them but ultimately was able to. Has some generalized weakness and does have intention tremor in right upper extremity and some dysmetria in left though less so than right. Did not appreciate any resting tremor * CT head read w/ no acute process however stroke teleneurologist thought that there may be a lesion in the basal ganglia on the left unclear if this is subacute/chronicity * CTA head and neck no LVO or hemodynamically significant stenosis * MRI no acute intracranial abnormality. No acute infarct. * asa, Plavix, statin * Echo w an EF 63%. * PT/OT/Speech eval * Teleneuro recommending continue DAPT for 3 weeks (restarting the begining to now) then ASA, continue statin. * Hold BP medications to allow for permissive hypertension for 24 hours unless SBP greater than 220 or DBP greater than 120 or until stroke is ruled out Dizziness: * check orthostats. Chronic conditions: * History of CVA: per patient he was told that he had a stroke and was shown the image when he was at [place] and that he was told he had likely had a previous stroke as well. On Plavix, aspirin, statin. Management of acute presentation as above. Monitor on tele for underlying pafib, presently NSR * Chronic BPH with obstruction-Continue home medications * Type 2 diabetes mellitus-Glucose checks and sliding scale insulin- Continue long-acting insulin but at lower dose to avoid hypoglycemia and uptitrate as tolerated * Hypertension- Holding home medications as above DVT ppx: SCDs Charges/Coding Visit Charges Inpatient E&M: 50164 Subs Hosp L2 NIHSS NIHSS Nursing Documentation NIHSS Nursing Documentation: NIHSS: Ischemic Stroke/TIA Start: 08/21/25 17:24 Text: For PCU Patients: NIH and Neuro Check every 4 Status: Active hours, PRN and with change in RN caregiver. Freq: [id number] Protocol: Activity Type Activity Date Activity User E-sign Co-sign Detail Recorded Client Recorded Date Recorded By Document 08/22/25 07:35 AK [id number] 08/22/25 07:49 AK 08/22/25 07:35 NIH Stroke Scale [NIHSS] A score of 0 is normal or asymptomatic . Total possible score is 42. Inpatient: RN or Physician to activate a stroke alert for onset of new stroke symptoms or with NIHSS increase >/= 3 points. Following change in neurological status, NIHSS will be performed per physician order or more frequently PRN. -1a. Level of Consciousness 0 - Alert; keenly responsive -1b. LOC Questions 0 - Answers BOTH questions correctly -1c. LOC Commands 0 - Performs BOTH tasks correctly -2. Best Gaze 1 - Partial gaze palsy; -3. Visual 0 - No visual loss -4. Facial Palsy 0 - Normal symmetrical movements -5a. Left Arm 0 - No drift; arm holds 90 ( or 45) degrees for full 10 seconds -5b. Right Arm 0 - No drift; arm holds 90 ( or 45) degrees for full 10 seconds -6a. Left Leg 0 - No drift; leg holds 30- degree position for full 5 seconds -6b. Right Leg 0 - No drift; leg holds 30- degree position for full 5 seconds -7. Limb Ataxia 1 - Present in 1 limb -8. Sensory 0 - Normal; no sensory loss -9. Best Language 0 - No aphasia; normal -10. Dysarthria 0 - Normal -11. Extinction and Inattention 0 - No abnormality -Total 2 Query Text:A score of 0 is normal or asymptomatic. Total possible score is 42 . ED: Notify Physician for NIHSS increase by > / = 3 points. Inpatient: RN or Physician to activate a stroke alert for NIHSS increase of > / = 3 points. Coma Scale [Assess] -Eye Opening Spontaneous -Motor Obeys Commands -Verbal Oriented [Total] -Coma Scale Total 15
--- NOTE | 2025-08-22 10:19 | CASEMGMT ---
Social Work Per imaging pt negative for stroke, therefore PHQ9 not completed. SAWYER Blanchard
--- NOTE | 2025-08-22 11:01 | PN.NEURO_ITS ---
Objective Data Objective Data Vital Signs: Vital Signs Temp Pulse Resp BP Pulse Ox O2 Del Method O2 Flow Rate 97.3 F L 74 18 155/101 H 94 Room Air 3 08/22/25 10:00 08/22/25 10:00 08/22/25 10:00 08/22/25 10:00 08/22/25 10:00 08/22/25 10:00 08/22/25 08:41 Oxygen Flow Rate (L/min) 3 Oxygen Delivery Method Room Air Weight: 108.862 kg Body Mass Index (BMI) 30.8 Intake & Output: Intake and Output for Last 24 Hours 08/20/25 08/21/25 08/22/25 23:59 23:59 23:59 Intake Total 240 / 680 1880 / 1880 Output Total 550 / 550 Balance 240 / 380 1330 / 1330 Lab / Micro Data 08/22/25 04:44 08/22/25 04:44 Labs: Laboratory Results - last 24 hr 08/21/25 13:25: WBC 8.9, RBC 5.79, Hgb 15.7, Hct 48.3, MCV 83.4, MCH 27.1, MCHC 32.5, RDW Std Deviation 43.9, RDW Coeff of Melanie 14.6, Plt Count 304, MPV 9.6, Immature Gran % (Auto) 0.600, Neut % (Auto) 57.0, Lymph % (Auto) 32.2, [place] % (Auto) 6.6, Eos % (Auto) 3.0, Baso % (Auto) 0.6, Absolute Neuts (auto) 5.1, Absolute Lymphs (auto) 2.87, Nucleated RBC % 0, PT 13.2, INR 1.0, APTT 30.2, Sodium 134, Potassium 4.8, Chloride 98, Carbon Dioxide 24.5, Anion Gap 12, BUN 28 H, Creatinine 1.43 H, Estim Creat Clear Calc 67.11, Est GFR (MDRD) Non-Af 55 L, BUN/Creatinine Ratio 19.2, Glucose 135 H, Hemoglobin A1c 7.8 H, Calcium 10.1, Troponin T High Sens 17 08/21/25 15:41: Troponin T Hi Sens 2 Hr 16, Urine Color Yellow, Urine Clarity Clear, Urine pH 5.0, Ur Specific [place] 1.020, Urine Protein 15 H, Urine Glucose (UA) 1000 H, Urine Ketones Negative, Urine Occult Blood Negative, Urine Nitrite Negative, Urine Bilirubin Negative, Urine Urobilinogen Normal, Ur Leukocyte Esterase 25 H, Urine RBC 0 SEEN, Urine WBC 5-10 SEEN, Ur Squamous Epith Cells 0-5 SEEN, Urine Bacteria 1+, Urine Mucus 0 SEEN, Urine Yeast RARE 08/21/25 17:59: Troponin T Hi Sens 4Hr 16 08/21/25 22:17: POC Glucose 298 H 08/22/25 02:44: Troponin T High Sens 10 D 08/22/25 04:44: WBC 14.3 H, RBC 5.70, Hgb 15.4, Hct 47.1, MCV 82.6, MCH 27.0, MCHC 32.7, RDW Std Deviation 43.1, RDW Coeff of Melanie 14.6, Plt Count 360, MPV 9.8, Immature Gran % (Auto) 0.700, Neut % (Auto) 81.0 H, Lymph % (Auto) 13.4 L, [place] % (Auto) 4.8, Eos % (Auto) 0.0, Baso % (Auto) 0.1, Absolute Neuts (auto) 11.6 H, Absolute Lymphs (auto) 1.91, Nucleated RBC % 0, Sodium 133, Potassium 4.9, Chloride 98, Carbon Dioxide 20.6 L, Anion Gap 15, BUN 33 H, Creatinine 1.46 H, Estim Creat Clear Calc 67.14, Est GFR (MDRD) Non-Af 53 L, BUN/Creatinine Ratio 22.6 H, Glucose 234 H, Calcium 9.7, Troponin T Hi Sens 2 Hr 11, Triglycerides 86, Cholesterol 224 H, LDL Cholesterol, Calc 169, VLDL Cholesterol 17, HDL Cholesterol 40, Cholesterol/HDL Ratio 5.63, TSH 0.829 08/22/25 06:27: Troponin T Hi Sens 4Hr 13 08/22/25 06:49: POC Glucose 201 H Radiography Diagnostic Testing: Radiology Impression Brain CT 08/21/25 13:31 IMPRESSION: No acute intracranial abnormalities. Reading Location: [facility] Head/Neck CTA 08/21/25 14:03 IMPRESSION: CTA head: No significant stenosis. No aneurysm. CTA neck: Atherosclerotic changes causing 20-30% stenosis of the internal carotid arteries. Findings were discussed with Dr. Marques on 08/21/2025. 3:05 p.m. Reading Location: [facility] Chest X-Ray 08/21/25 14:15 IMPRESSION: No acute abnormality Reading Location: [facility] Brain MRI 08/21/25 17:24 IMPRESSION: No acute intracranial abnormality; No acute infarct. Mild chronic microangiopathic changes, with a chronic lacunar infarct in the left frontal periventricular white matter, unchanged. Reading Location: [facility] Physical Exam Neuro Neuro Narrative: Neurological examination: General: The patient appears nutritionally appropriate, well-groomed, and appears comfortable in no acute distress. Mental Status: The patient?s mental status was normal including orientation. Language was intact. Cranial nerves: Visual wade full, and extra-ocular motion was intact. Face motion symmetric. There was no dysarthria. Motor: Normal strength and tone in all four extremities. No pronator drift. Sensation: Intact light touch bilaterally, no extinction. Coordination: Bilateral finger to nose was normal. There was no dysmetria. Tremor noted in right hand. Gait: deferred Subject: Neurology Subjective Feels better but not back to normal (90%) Assessment and Plan: Stroke Assessment/Plan ASHWINI HAYES is a 65 RH M with a history of HTN, DM, [place], prior ischemic 3 weeks (hospitalized at [facility], was told blockage in the arteries but he was not told MRI showed infarct and was diagnosed with stroke and discharged home on Aspirin and plavix). He did inpatient rehab and felt he recovered back to normal except for some mild right arm weakness/tremor. He presents for evaluation of confusion and generalized weakness (right arm was shaking) and he felt he couldnt speak. He had a headache all day yesterday. He was LKN 08/21/25 at 10am and then developed confusion, trouble talking. Patient reports The worst part was over in 5-10min, but as time progressed it got worse. He feels by 3pm he could speak. Patient reports this episode was similar to the prior stroke (but this 2nd event was worse). The first episode was not associated with RESENDIZ. Patient denies history of migraines. He presented to [place] [facility] where telestroke consulted showed NIHSS 5. CT brain negative. CTA head/neck negative (pre-medication required). LDL 169. Patient notes tremor in the right hand for the last 1 month (since his stroke), which has worsened. MRI brain DWI negative. Neurological examination shows nonfocal exam, NIHSS-0. ASSESSMENT/PLAN: Unmasking. 1) New Stroke has been ruled out with negative MRI DWI brain. This episode may represent unmasking. 2) Recommend PT consult. If cleared, can DC home today. 3) Patient reportely has prior stroke 3 weeks ago and should continue stroke prevention. Reocmmend dAPT x 21 days (from now) and then stop Plavix and continue Asa only. Continue lipitor. ) Follow-up with outpatient neurology clinic. Primary team sent recommendation on backline. Verena Carter MD NIHSS NIHSS Nursing Documentation NIHSS Nursing Documentation: NIHSS: Ischemic Stroke/TIA Start: 08/21/25 17:24 Text: For PCU Patients: NIH and Neuro Check every 4 Status: Active hours, PRN and with change in RN caregiver. Freq: [id number] Protocol: Activity Type Activity Date Activity User E-sign Co-sign Detail Recorded Client Recorded Date Recorded By Document 08/22/25 07:35 DC [id number] 08/22/25 07:49 DC 08/22/25 07:35 NIH Stroke Scale [NIHSS] A score of 0 is normal or asymptomatic . Total possible score is 42. Inpatient: RN or Physician to activate a stroke alert for onset of new stroke symptoms or with NIHSS increase >/= 3 points. Following change in neurological status, NIHSS will be performed per physician order or more frequently PRN. -1a. Level of Consciousness 0 - Alert; keenly responsive -1b. LOC Questions 0 - Answers BOTH questions correctly -1c. LOC Commands 0 - Performs BOTH tasks correctly -2. Best Gaze 1 - Partial gaze palsy; -3. Visual 0 - No visual loss -4. Facial Palsy 0 - Normal symmetrical movements -5a. Left Arm 0 - No drift; arm holds 90 ( or 45) degrees for full 10 seconds -5b. Right Arm 0 - No drift; arm holds 90 ( or 45) degrees for full 10 seconds -6a. Left Leg 0 - No drift; leg holds 30- degree position for full 5 seconds -6b. Right Leg 0 - No drift; leg holds 30- degree position for full 5 seconds -7. Limb Ataxia 1 - Present in 1 limb -8. Sensory 0 - Normal; no sensory loss -9. Best Language 0 - No aphasia; normal -10. Dysarthria 0 - Normal -11. Extinction and Inattention 0 - No abnormality -Total 2 Query Text:A score of 0 is normal or asymptomatic. Total possible score is 42 . ED: Notify Physician for NIHSS increase by > / = 3 points. Inpatient: RN or Physician to activate a stroke alert for NIHSS increase of > / = 3 points. Coma Scale [Assess] -Eye Opening Spontaneous -Motor Obeys Commands -Verbal Oriented [Total] -Coma Scale Total 15 NIHSS 1a. Level of Consciousness: 0 - Alert; keenly responsive 1b. LOC Questions: 0 - Answers BOTH questions correctly 1c. LOC Commands: 0 - Performs BOTH tasks correctly 2. Best Gaze: 0 - Normal 3. Visual: 0 - No visual loss 4. Facial Palsy: 0 - Normal symmetrical movements 5a. Left Arm: 0 - No drift; arm holds 90 (or 45) degrees for full 10 seconds 5b. Right Arm: 0 - No drift; arm holds 90 (or 45) degrees for full 10 seconds 6a. Left Le - No drift; leg holds 30-degree position for full 5 seconds 6b. Right Le - No drift; leg holds 30-degree position for full 5 seconds 7. Limb Ataxia: 0 - Absent 8. Sensory: 0 - Normal; no sensory loss 9. Best Language: 0 - No aphasia; normal 10. Dysarthria: 0 - Normal 11. Extinction and Inattention: 0 - No abnormality Total: 0
--- NOTE | 2025-08-22 15:49 | PCM.DC.SUM ---
Providers Date of Admission: 08/21/25 Primary Care Physician: Susan Ridley, [employer]W OPERATOR Consultations 08/21/25 17:24 Consult: Tele-Neurology Routine Consulting Provider: [facility] Reason for Consult: Acute Ischemic Stroke/TIA EMERGENT Consult: No MD Notified: Yes Date Notified: 08/21/25 Time Notified: 19:26 Method of Notification: Answering Service Nursing Unit Staff Notify [facility] of Tele-Neurology Consult: Yes Reason For Visit: STROKE RULE OUT Diagnosis Discharge Diagnosis (1) Neurologic abnormality: Status: Acute Code(s): R29.818 - Other symptoms and signs involving the nervous system Plan TIA transient right arm weakness, expressive aphasia, confusion -LKW 1000, given recent CVA TNK was not recommended by stroke neurologist, additionally, pt has had significant improvement in symptoms: Weakness and expressive aphasia resolved, does not seem confused but had a little bit of difficult time processing commands and executing them but ultimately was able to. Has some generalized weakness and does have intention tremor in right upper extremity and some dysmetria in left though less so than right. Did not appreciate any resting tremor CT head read w/ no acute process however stroke teleneurologist thought that there may be a lesion in the basal ganglia on the left unclear if this is subacute/chronicity CTA head and neck no LVO or hemodynamically significant stenosis MRI no acute intracranial abnormality. No acute infarct. asa, Plavix, statin Echo w an EF 63%. PT/OT/Speech eval Teleneuro recommending continue DAPT for 3 weeks (restarting the begining to now) then ASA, continue statin. Hold BP medications to allow for permissive hypertension for 24 hours unless SBP greater than 220 or DBP greater than 120 or until stroke is ruled out Dizziness: check orthostats. Chronic conditions: History of CVA: per patient he was told that he had a stroke and was shown the image when he was at [facility] and that he was told he had likely had a previous stroke as well. On Plavix, aspirin, statin. Management of acute presentation as above. 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 Instructions: Resume on 08/26/25. duloxetine 30 mg capsule,delayed release 30 mg PO DAILY depression 09/05/21 metoprolol tartrate 50 mg tablet 50 mg PO BID blood pressure 09/05/21 tamsulosin 0.4 mg capsule 0.8 mg PO QHS urinary retention 09/05/21 atorvastatin 80 mg tablet 80 mg PO QHS cholesterol 30 days #30 tabs 06/07/22 amitriptyline 50 mg tablet 50 mg PO QHS depression 08/21/25 dulaglutide 4.5 mg/0.5 mL subcutaneous pen injector (Trulicity) 0.75 mg subcut QWEEK blood sugar 08/21/25 empagliflozin 25 mg tablet (Jardiance) 25 mg PO DAILY heart 08/21/25 finasteride 5 mg tablet 5 mg PO DAILY prostate 08/21/25 gabapentin 400 mg capsule 400 mg PO BID pain 08/21/25 insulin glargine-yfgn 100 unit/mL (3 mL) subcutaneous pen 24 unit subcut QHS blood sugar 08/21/25 aspirin 81 mg capsule 81 mg PO DAILY 08/22/25 clopidogrel 75 mg tablet 75 mg PO DAILY stroke #21 tabs 08/22/25 Hospital Course Operations None Procedures 2-D Echocardiogram Summary of Care Provided Hospital Course: Greater than 30-minute spent on discharge This is a 65-year-old male who recent underwent a stroke presented with Expressive aphasia, right-sided weakness and tremor. Symptoms did resolve but still did persist pressure on the right side. Patient underwent stroke workup that was unremarkable. Patient was seen by neurology who recommended a continuation the dual antiplatelet therapy for 3 weeks and then continue with just aspirin only. Continue with statin. Follow-up with outpatient neurology. Patient be discharged home with outpatient physical and speech therapy. Weight / BMI Weight Weight: 108.862 kg Body Mass Index (BMI) 30.8 ABG / Lab / Microbiology Data 08/22/25 04:44 08/22/25 04:44 Laboratory: Laboratory Results - last 24 hr 08/21/25 13:25: Hemoglobin A1c 7.8 H 08/21/25 15:41: Troponin T Hi Sens 2 Hr 16, Urine Color Yellow, Urine Clarity Clear, Urine pH 5.0, Ur Specific [place] 1.020, Urine Protein 15 H, Urine Glucose (UA) 1000 H, Urine Ketones Negative, Urine Occult Blood Negative, Urine Nitrite Negative, Urine Bilirubin Negative, Urine Urobilinogen Normal, Ur Leukocyte Esterase 25 H, Urine RBC 0 SEEN, Urine WBC 5-10 SEEN, Ur Squamous Epith Cells 0-5 SEEN, Urine Bacteria 1+, Urine Mucus 0 SEEN, Urine Yeast RARE 08/21/25 17:59: Troponin T Hi Sens 4Hr 16 08/21/25 22:17: POC Glucose 298 H 08/22/25 02:44: Troponin T High Sens 10 D 08/22/25 04:44: WBC 14.3 H, RBC 5.70, Hgb 15.4, Hct 47.1, MCV 82.6, MCH 27.0, MCHC 32.7, RDW Std Deviation 43.1, RDW Coeff of Melanie 14.6, Plt Count 360, MPV 9.8, Immature Gran % (Auto) 0.700, Neut % (Auto) 81.0 H, Lymph % (Auto) 13.4 L, Anderson % (Auto) 4.8, Eos % (Auto) 0.0, Baso % (Auto) 0.1, Absolute Neuts (auto) 11.6 H, Absolute Lymphs (auto) 1.91, Nucleated RBC % 0, Sodium 133, Potassium 4.9, Chloride 98, Carbon Dioxide 20.6 L, Anion Gap 15, BUN 33 H, Creatinine 1.46 H, Estim Creat Clear Calc 67.14, Est GFR (MDRD) Non-Af 53 L, BUN/Creatinine Ratio 22.6 H, Glucose 234 H, Calcium 9.7, Troponin T Hi Sens 2 Hr 11, Triglycerides 86, Cholesterol 224 H, LDL Cholesterol, Calc 169, VLDL Cholesterol 17, HDL Cholesterol 40, Cholesterol/HDL Ratio 5.63, TSH 0.829 08/22/25 06:27: Troponin T Hi Sens 4Hr 13 08/22/25 06:49: POC Glucose 201 H 08/22/25 11:44: POC Glucose 217 H Radiography Diagnostic Testing: Radiology Impression Brain MRI 08/21/25 17:24 IMPRESSION: No acute intracranial abnormality; No acute infarct. Mild chronic microangiopathic changes, with a chronic lacunar infarct in the left frontal periventricular white matter, unchanged. Reading Location: [facility] Echocardiogram 08/21/25 17:24 Interpretation Summary Normal left ventricular systolic function with EF by Jackson's biplane: 63% Normal left ventricular diastolic function Normal left ventricular wall motion Normal right ventricular systolic function No hemodynamically significant valvular disease Ordering Physician: Estefani Zamora Referring Physician: Susan Ridley Performed By: Shazia Katz RDCS, RVT D/C Instructions DC O2, CPAP, BIPAP Needs Home O2 Discharge instructions: No Meaningful Use Info Meaningful Use Meaningful Use Diagnoses (Choose all that apply): Ischemic CVA CVA Therapy Assessed for PT,OT and/or ST?: Yes Ischemic Stroke Antithrombotic order at d/c?: Yes Dx of Atrial fib/flutter?: No Anticoagulant at discharge?: No Reason anticoagulant not ordered: Treatment not Indicated Statins at discharge?: Yes If patient is 75 or younger, pt will be discharged on HIGH intensity statin.: Yes Primary Dx Acute Ischemic CVA?: Yes IV thrombolytic ordered during stay?: No Reason IV thrombolytic not ordered: Treatment not Indicated Discharge Plan Admission Admit Date/Time: 08/21/25 16:28 Primary Reason for Your Visit: TIA Attending Provider: Feng Worley Primary Care Provider: Susan Ridley Consulting Providers: Estefani Zamora Instructions Additional Instructions / Restrictions: Concerns you may have had a recurrent TIA. You will continue with 21 days starting now with Plavix and aspirin and then after 21 days you will just continue with aspirin. If you do have worsening symptoms, notify your physician or return to the emergency room. You will also follow-up with speech and physical therapy as outpatient. Discharge Orders/Prescriptions Prescriptions: Continued tamsulosin 0.4 mg capsule 0.8 mg PO QHS metoprolol tartrate 50 mg tablet 50 mg PO BID duloxetine 30 mg capsule,delayed release(DR/EC) 30 mg PO DAILY atorvastatin 80 mg Tablet 80 mg PO QHS 30 Days Qty: 30 0RF gabapentin 400 mg capsule 400 mg PO BID amitriptyline 50 mg tablet 50 mg PO QHS finasteride 5 mg tablet 5 mg PO DAILY Jardiance 25 mg tablet 25 mg PO DAILY Trulicity 4.5 mg/0.5 mL pen injector 0.75 mg subcut QWEEK insulin glargine-yfgn 100 unit/mL (3 mL) Insulin Pen 24 unit subcut QHS aspirin 81 mg capsule 81 mg PO DAILY clopidogrel 75 mg tablet 75 mg PO DAILY Qty: 21 0RF Held metformin 500 mg Tablet 2,000 mg PO DAILY Hold Instructions: Resume on 08/26/25. Rx Instructions: 2 tablets twice daily Referrals / Follow Up: [facility] [Provider Group] - Within 1 Month Susan Ridley, [employer] SAW OPERATOR [Primary Care Provider, Family Practice] - Within 2 Weeks Disposition Disposition (needs filled in before D/C Order can be placed): Home, Self Care Charges/Coding Visit Charges Inpatient E&M: 97860 Disch Hosp >30min
--- NOTE | 2025-08-22 16:10 | CASEMGMT ---
VALENCIA Met with patient to complete VALENCIA form. VALENCIA form and its content were verbally explained and patient's questions were answered to the best of my ability.? Patient voiced understanding and signed VALENCIA form.? Patient provided a copy of signed VALENCIA form and original placed in patient's chart.? Patient had no further questions. Marion Lockhart, Discharge Planning Ass
--- NOTE | 2025-08-22 16:12 | CASEMGMT ---
Patient has order for discharge. Patient will need outpatient PT and ST at discharge. TANYA DE SANTIAGO received script from hospitalist. TANYA DE SANTIAGO in to discuss outpatient therapy at discharge. Patient states that he has completed outpatient therapy previously at [facility] and would like to schedule on his own. Patient denied further needs or concerns. Patient had no further questions. TANYA DE SANTIAGO placed script in patient's discharge packet.
--- NOTE | 2025-08-22 17:40 | EKG12_ITS ---
Test Reason : CP Blood Pressure : */* mmHG Vent. Rate : 120 BPM Atrial Rate : 120 BPM P-R Int : 156 ms QRS Dur : 100 ms QT Int : 324 ms P-R-T Axes : 57 26 71 degrees QTcB Int : 457 ms Sinus tachycardia Otherwise normal ECG When compared with ECG of 21-Aug-2025 14:01, MANUAL COMPARISON REQUIRED DATA IS UNCONFIRMED Confirmed by Rickey Cooper ([id number]), make up editor FIDEL BERMAN ([id number]) on 08/23/2025 1:59:42 PM Referred By: JANUARY Confirmed By: Rickey Cooper
[2025-08-22 19:30] LABS: Troponin T High Sensitivity 15 ng/L (<=22)
[2025-08-22] MEDS: Insulin Glargine-YFGN 100 UNIT/ML Pen 20 UNIT SC (21:37)
[2025-08-22 22:01] LABS: Troponin T High Sens 2 HR 15 ng/L (<=22)
[2025-08-22] MEDS: Lidocaine 2% Viscous15 ML UDC 15 ML PO (23:08)
[2025-08-22 23:14] LABS: Troponin T High Sens 4 HR 14 ng/L (<=22)
[2025-08-23 00:53] VITALS: BMI 30.8
[2025-08-23 02:56] VITALS: BP 117/85; PULSE 84; RESP 18; TEMP 36.4; O2SAT 94
--- NOTE | 2025-08-23 03:25 | PCM.HOSP.N ---
Hospitalist Note Patient slid out of bed, no trauma to the head, no injury noted, will continue to closely monitor.
--- NOTE | 2025-08-23 05:55 | EKG12_ITS ---
Test Reason : STRESS TEST Blood Pressure : */* mmHG Vent. Rate : 65 BPM Atrial Rate : 65 BPM P-R Int : 192 ms QRS Dur : 128 ms QT Int : 400 ms P-R-T Axes : 24 37 58 degrees QTcB Int : 416 ms Normal sinus rhythm Non-specific intra-ventricular conduction block Abnormal ECG When compared with ECG of 22-Aug-2025 17:41, MANUAL COMPARISON REQUIRED DATA IS UNCONFIRMED Confirmed by EMMA SHELBY, KELLY ([id number]), design editor JUAN JOSE DEGROOT ([id number]) on 08/27/2025 6:37:47 AM Referred By: YANIRA Confirmed By: KELLY CARTER MD
--- NOTE | 2025-08-23 07:46 | NURSING ---
Pt. noted to be sliding off bed onto the floor by staff. Pt. Vital signs WNL, BG 192. Pt. states that he isn't sure what happened, thinks he may have been sliding to edge of bed to use urinal and slid off. Denies any pain, no injuries noted on inspection. Dr. Vogel notified, no new orders. Pt. requested that family do not be notified of fall, he states he will tell them.
--- NOTE | 2025-08-23 08:40 | PN.HOSP_ITS ---
Reason for Visit Chief Complaint: Expressive aphasia, right sided weakness and intention tremor Subjective Subjective Feeling much better. No further events. Objective Data Objective Data Vital Signs: Vital Signs Temp Pulse Resp BP Pulse Ox O2 Del Method O2 Flow Rate 36.4 C L 84 18 117/85 H 94 Room Air 3 08/23/25 02:56 08/23/25 02:56 08/23/25 02:56 08/23/25 02:56 08/23/25 02:56 08/23/25 02:56 08/22/25 08:41 Oxygen Flow Rate (L/min) 3 Oxygen Delivery Method Room Air Weight: 108.862 kg Body Mass Index (BMI) 30.8 Intake & Output: Intake and Output for Last 24 Hours 08/21/25 08/22/25 08/23/25 23:59 23:59 23:59 Intake Total 240 / 680 2680 / 3130 450 / 450 Output Total 550 / 550 Balance 240 / 380 2130 / 2580 450 / 450 Lab / Micro Data 08/22/25 04:44 08/22/25 04:44 Labs: Laboratory Results - last 24 hr 08/22/25 11:44: POC Glucose 217 H 08/22/25 16:24: POC Glucose 210 H 08/22/25 18:45: Troponin T High Sens 15 D 08/22/25 20:40: Troponin T Hi Sens 2 Hr 15 08/22/25 21:26: POC Glucose 160 H 08/22/25 22:35: Troponin T Hi Sens 4Hr 14 08/23/25 02:58: POC Glucose 192 H 08/23/25 06:54: POC Glucose 126 H Radiography Diagnostic Testing: Radiology Impression Echocardiogram 08/21/25 17:24 Interpretation Summary Normal left ventricular systolic function with EF by Jackson's biplane: 63% Normal left ventricular diastolic function Normal left ventricular wall motion Normal right ventricular systolic function No hemodynamically significant valvular disease Ordering Physician: Estefani Zamora Referring Physician: Suppan, Susan Performed By: Shazia Katz, GORDY, RVT Physical Exam Const alert and no apparent distress Constitutional Narrative: Up in chair. Nontoxic. HEENT head/scalp atraumatic and moist oral mucous membranes Assessment & Plan Assessment/Plan (1) Neurologic abnormality: PLAN: Plan TIA * transient right arm weakness, expressive aphasia, confusion * -LKW 1000, given recent CVA TNK was not recommended by stroke neurologist, additionally, pt has had significant improvement in symptoms: Weakness and expressive aphasia resolved, does not seem confused but had a little bit of difficult time processing commands and executing them but ultimately was able to. Has some generalized weakness and does have intention tremor in right upper extremity and some dysmetria in left though less so than right. Did not appreciate any resting tremor * CT head read w/ no acute process however stroke teleneurologist thought that there may be a lesion in the basal ganglia on the left unclear if this is subacute/chronicity * CTA head and neck no LVO or hemodynamically significant stenosis * MRI no acute intracranial abnormality. No acute infarct. * asa, Plavix, statin * Echo w an EF 63%. * PT/OT/Speech eval * Teleneuro recommending continue DAPT for 3 weeks (restarting the begining to now) then ASA, continue statin. * Hold BP medications to allow for permissive hypertension for 24 hours unless SBP greater than 220 or DBP greater than 120 or until stroke is ruled out Dizziness: * check orthostats positive. HR jumped 30-points with standing, though BP remained stable. Repeat orthostats today were negative. Chest pain: * atypical. * stress negative Chronic conditions: * History of CVA: per patient he was told that he had a stroke and was shown the image when he was at [facility] and that he was told he had likely had a previous stroke as well. On Plavix, aspirin, statin. Management of acute presentation as above. 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 Freq: [id number] Protocol: Activity Type Activity Date Activity User E-sign Co-sign Detail Recorded Client Recorded Date Recorded By Document 08/22/25 11:35 NV [id number] 08/22/25 12:32 NV 08/22/25 11:35 NIH Stroke Scale [NIHSS] A score of 0 is normal or asymptomatic . Total possible score is 42. Inpatient: RN or Physician to activate a stroke alert for onset of new stroke symptoms or with NIHSS increase >/= 3 points. Following change in neurological status, NIHSS will be performed per physician order or more frequently PRN. -1a. Level of Consciousness 0 - Alert; keenly responsive -1b. LOC Questions 0 - Answers BOTH questions correctly -1c. LOC Commands 0 - Performs BOTH tasks correctly -2. Best Gaze 1 - Partial gaze palsy; -3. Visual 0 - No visual loss -4. Facial Palsy 0 - Normal symmetrical movements -5a. Left Arm 0 - No drift; arm holds 90 ( or 45) degrees for full 10 seconds -5b. Right Arm 0 - No drift; arm holds 90 ( or 45) degrees for full 10 seconds -6a. Left Leg 0 - No drift; leg holds 30- degree position for full 5 seconds -6b. Right Leg 0 - No drift; leg holds 30- degree position for full 5 seconds -7. Limb Ataxia 1 - Present in 1 limb -8. Sensory 0 - Normal; no sensory loss -9. Best Language 0 - No aphasia; normal -10. Dysarthria 0 - Normal -11. Extinction and Inattention 0 - No abnormality -Total 2 Query Text:A score of 0 is normal or asymptomatic. Total possible score is 42 . ED: Notify Physician for NIHSS increase by > / = 3 points. Inpatient: RN or Physician to activate a stroke alert for NIHSS increase of > / = 3 points. Coma Scale [Assess] -Eye Opening Spontaneous -Motor Obeys Commands -Verbal Oriented [Total] -Coma Scale Total 15
[2025-08-23 10:23] VITALS: BP 140/79; PULSE 71; RESP 17; TEMP 36.4; O2SAT 98
[2025-08-23 10:27] VITALS: PULSE 71
--- NOTE | 2025-08-23 10:50 | STRESSREP_ITS ---
Stress Test Report Date: 08/23/2025 Procedure: Pharmacologic stress nuclear imaging study Indications: Chest pain Consent: Per the patient Procedure: The patient underwent pharmacologic (Regadenoson) evaluation with a peak heart rate of [90] beats per minute (57%predicted maximal heart rate) and a peak blood pressure of 126/82 mmHg. The baseline ECG demonstrated normal sinus rhythm, ST changes suggestive of early repolarization. EKG during lexiscan infusion revealed no significant change from baseline. EKG post infusion revealed no significant change. [There were no cardiac dysrhythmias pretest, during pharmacologic infusion, or recovery]. [There was no complaint of chest discomfort during pharmacologic infusion or recovery]. The examination was discontinued secondary to completion of protocol. Impression: 1. Lexiscan stress test test is negative for Lexiscan infusion induced EKG changes of ischemia. 2. Lexiscan stress test test is negative for Lexiscan infusion induced chest pain. 3. Results of the nuclear portion of the test is as below Myocardial perfusion imaging study: Technique: The patient was injected with 14.6 millicuries of technetium 99m Cardiolite and subsequently rest SPECT Cardiolite nuclear imaging was obtained in the horizontal long, vertical long, and short axis views. The patient underwent pharmacologic [Regadenoson 0.4mg] evaluation. Please see above for details. The patient was injected with 45 millicuries of technetium 99m Cardiolite and subsequently stress SPECT Cardiolite nuclear imaging was obtained in the horizontal long, vertical long, and short axis views. A gated Cardiolite study at peak stress was obtained. Interpretation: Rest and stress SPECT Cardiolite nuclear imaging status post realignment, normalization, and attenuation correction demonstrate no evidence of significant ischemia or infarction. Gated images reveal no significant regional wall motion abnormalities. The reported LVEF is 60%. Impression: 1. There is no evidence of significant ischemia or infarction. 2. Estimated ejection fraction is 60%. This note was generated with Outerstuffation software. It may contain incorrect words, spelling, and punctuation that were not noted in checking the note before signing.
[2025-08-23 11:33] VITALS: BP 134/94; BP 153/95; BP 154/101; PULSE 66; PULSE 68; PULSE 70
[2025-08-23 13:23] VITALS: BMI 30.8
--- NOTE | 2025-08-23 15:35 | DS.PCM_ITS ---
Providers Date of Admission: 08/21/25 Primary Care Physician: Susan Ridley, TECH[employer]ICAL SALES ENGINEER Consultations 08/21/25 17:24 Consult: Tele-Neurology Routine Consulting Provider: [facility] Reason for Consult: Acute Ischemic Stroke/TIA EMERGENT Consult: No MD Notified: Yes Date Notified: 08/21/25 Time Notified: 19:26 Method of Notification: Answering Service Nursing Unit Staff Notify [facility] of Tele-Neurology Consult: Yes Reason For Visit: STROKE RULE OUT Diagnosis Discharge Diagnosis (1) Neurologic abnormality: Status: Acute Code(s): R29.818 - Other symptoms and signs involving the nervous system Plan TIA * transient right arm weakness, expressive aphasia, confusion * -LKW 1000, given recent CVA TNK was not recommended by stroke neurologist, additionally, pt has had significant improvement in symptoms: Weakness and expressive aphasia resolved, does not seem confused but had a little bit of difficult time processing commands and executing them but ultimately was able to. Has some generalized weakness and does have intention tremor in right upper extremity and some dysmetria in left though less so than right. Did not appreciate any resting tremor * CT head read w/ no acute process however stroke teleneurologist thought that there may be a lesion in the basal ganglia on the left unclear if this is subacute/chronicity * CTA head and neck no LVO or hemodynamically significant stenosis * MRI no acute intracranial abnormality. No acute infarct. * asa, Plavix, statin * Echo w an EF 63%. * PT/OT/Speech eval * Teleneuro recommending continue DAPT for 3 weeks (restarting the begining to now) then ASA, continue statin. * Hold BP medications to allow for permissive hypertension for 24 hours unless SBP greater than 220 or DBP greater than 120 or until stroke is ruled out Dizziness: * check orthostats positive. HR jumped 30-points with standing, though BP remained stable. Repeat orthostats today were negative. Chest pain: * atypical. * stress negative Chronic conditions: * History of CVA: per patient he was told that he had a stroke and was shown the image when he was at [facility] and that he was told he had likely had a previous stroke as well. On Plavix, aspirin, statin. Management of acute presentation as above. Monitor on tele for underlying pafib, presently NSR * Chronic BPH with obstruction-Continue home medications * Type 2 diabetes mellitus-Glucose checks and sliding scale insulin- Continue long-acting insulin but at lower dose to avoid hypoglycemia and uptitrate as tolerated * Hypertension- Holding home medications as above DVT ppx: SCDs DC home Medications at Discharge Home Medications metformin 500 mg tablet 2,000 mg PO DAILY blood sugar 01/20/21 Held on 08/22/25. Instructions: Resume on 08/26/25. duloxetine 30 mg capsule,delayed release 30 mg PO DAILY depression 09/05/21 metoprolol tartrate 50 mg tablet 50 mg PO BID blood pressure 09/05/21 tamsulosin 0.4 mg capsule 0.8 mg PO QHS urinary retention 09/05/21 atorvastatin 80 mg tablet 80 mg PO QHS cholesterol 30 days #30 tabs 06/07/22 amitriptyline 50 mg tablet 50 mg PO QHS depression 08/21/25 dulaglutide 4.5 mg/0.5 mL subcutaneous pen injector (Trulicity) 0.75 mg subcut QWEEK blood sugar 08/21/25 empagliflozin 25 mg tablet (Jardiance) 25 mg PO DAILY heart 08/21/25 finasteride 5 mg tablet 5 mg PO DAILY prostate 08/21/25 gabapentin 400 mg capsule 400 mg PO BID pain 08/21/25 insulin glargine-yfgn 100 unit/mL (3 mL) subcutaneous pen 24 unit subcut QHS blood sugar 08/21/25 aspirin 81 mg capsule 81 mg PO DAILY heart health 08/22/25 clopidogrel 75 mg tablet 75 mg PO DAILY stroke #21 tabs 08/22/25 Hospital Course Operations None Procedures 2-D Echocardiogram and Stress test Summary of Care Provided Hospital Course: Patient had recurrent symptoms of stroke with with x-rays of aphasia, right- sided weakness and tremor. Patient underwent a workup that was negative but neurology felt this was recurrence of TIA and recommended 3 weeks of dual platelet therapy and then aspirin only. Patient was going to be discharged on the but then he started developing chest pain. It was atypical. He had the night before which she had negative troponins. He underwent a stress test that was negative. Chest pain felt to be likely musculoskeletal. He did have some complaint of dizziness upon standing. We did do orthostats on the which he had relatively stable blood pressure but his heart rate jumped 30 points from laying to standing. Repeat orthostats today were negative. Patient will be discharged home in stable condition. Weight / BMI Weight Weight: 108.862 kg Body Mass Index (BMI) 30.8 ABG / Lab / Microbiology Data 08/22/25 04:44 08/22/25 04:44 Laboratory: Laboratory Results - last 24 hr 08/21/25 13:24: POC Glucose 115 H 08/22/25 16:24: POC Glucose 210 H 08/22/25 18:45: Troponin T High Sens 15 D 08/22/25 20:40: Troponin T Hi Sens 2 Hr 15 08/22/25 21:26: POC Glucose 160 H 08/22/25 22:35: Troponin T Hi Sens 4Hr 14 08/23/25 02:58: POC Glucose 192 H 08/23/25 06:54: POC Glucose 126 H 08/23/25 11:31: POC Glucose 80 D/C Instructions DC O2, CPAP, BIPAP Needs Home O2 Discharge instructions: No Meaningful Use Info Meaningful Use Meaningful Use Diagnoses (Choose all that apply): Ischemic CVA CVA Therapy Assessed for PT,OT and/or ST?: Yes Ischemic Stroke Antithrombotic order at d/c?: Yes Dx of Atrial fib/flutter?: No Anticoagulant at discharge?: No Reason anticoagulant not ordered: Treatment not Indicated Statins at discharge?: Yes If patient is 75 or younger, pt will be discharged on HIGH intensity statin.: Y es Primary Dx Acute Ischemic CVA?: Yes IV thrombolytic ordered during stay?: No Reason IV thrombolytic not ordered: Treatment not Indicated Discharge Plan Admission Admit Date/Time: 08/21/25 16:28 Primary Reason for Your Visit: TIA Attending Provider: Feng Worley Primary Care Provider: Susan Ridley Consulting Providers: Estefani Zamora Instructions Additional Instructions / Restrictions: Concerns you may have had a recurrent TIA. You will continue with 21 days starting now with Plavix and aspirin and then after 21 days you will just continue with aspirin. If you do have worsening symptoms, notify your physician or return to the emergency room. You will also follow-up with speech and physical therapy as outpatient. Discharge Orders/Prescriptions Prescriptions: Continued tamsulosin 0.4 mg capsule 0.8 mg PO QHS metoprolol tartrate 50 mg tablet 50 mg PO BID duloxetine 30 mg capsule,delayed release(DR/EC) 30 mg PO DAILY atorvastatin 80 mg Tablet 80 mg PO QHS 30 Days Qty: 30 0RF gabapentin 400 mg capsule 400 mg PO BID amitriptyline 50 mg tablet 50 mg PO QHS finasteride 5 mg tablet 5 mg PO DAILY Jardiance 25 mg tablet 25 mg PO DAILY Trulicity 4.5 mg/0.5 mL pen injector 0.75 mg subcut QWEEK insulin glargine-yfgn 100 unit/mL (3 mL) Insulin Pen 24 unit subcut QHS aspirin 81 mg capsule 81 mg PO DAILY clopidogrel 75 mg tablet 75 mg PO DAILY Qty: 21 0RF Held metformin 500 mg Tablet 2,000 mg PO DAILY Hold Instructions: Resume on 08/26/25. Rx Instructions: 2 tablets twice daily Referrals / Follow Up: [facility] [Provider Group] - Within 1 Month Susan Ridley TECHNICAL SALES ENGINEER [Primary Care Provider, Family Practice] - Within 2 Weeks Disposition Disposition (needs filled in before D/C Order can be placed): Home, Self Care Charges/Coding Visit Charges Inpatient E&M: 12527 Disch Hosp
[2025-08-23 15:40] VITALS: BP 119/90; PULSE 73; RESP 17; TEMP 36.6; O2SAT 97
--- NOTE | 2025-08-23 15:44 | PHA.DC.MR.R ---
Pharmacy [facility] Reconciliation Pharmacy Service has performed discharge medication reconciliation for this patient. The patient's discharge medication list was reviewed for discrepancies and discrepancies were resolved. Medications at Discharge Home Medications metformin 500 mg tablet 2,000 mg PO DAILY blood sugar 01/20/21 Held on 08/22/25. Instructions: Resume on 08/26/25. duloxetine 30 mg capsule,delayed release 30 mg PO DAILY depression 09/05/21 metoprolol tartrate 50 mg tablet 50 mg PO BID blood pressure 09/05/21 tamsulosin 0.4 mg capsule 0.8 mg PO QHS urinary retention 09/05/21 atorvastatin 80 mg tablet 80 mg PO QHS cholesterol 30 days #30 tabs 06/07/22 amitriptyline 50 mg tablet 50 mg PO QHS depression 08/21/25 dulaglutide 4.5 mg/0.5 mL subcutaneous pen injector (Trulicity) 0.75 mg subcut QWEEK blood sugar 08/21/25 empagliflozin 25 mg tablet (Jardiance) 25 mg PO DAILY heart 08/21/25 finasteride 5 mg tablet 5 mg PO DAILY prostate 08/21/25 gabapentin 400 mg capsule 400 mg PO BID pain 08/21/25 insulin glargine-yfgn 100 unit/mL (3 mL) subcutaneous pen 24 unit subcut QHS blood sugar 08/21/25 aspirin 81 mg capsule 81 mg PO DAILY heart health 08/22/25 clopidogrel 75 mg tablet 75 mg PO DAILY stroke #21 tabs 08/22/25
--- NOTE | 2025-08-23 16:01 | CASEMGMT ---
Patient has order for discharge. Outpatient therapy script from yesterday placed in discharge packet. RN CM in to discuss needs at discharge. Patient denies needs or help at discharge. Patient had no further questions or concerns.
== END 2025-08-23 17:35 | disposition home or self-care (01) ==
LOC: ED 16:54 → PCU 16:57
PROVIDERS: Family Medicine; Admitting Provider Internal Medicine; Emergency Provider Emergency Medicine; PCP Clinical Nurse Specialist Adult Health
DX: G45.9 Transient cerebral ischemic attack, unspecified (principal); I11.0 Hypertensive heart disease with heart failure; E11.22 Type 2 diabetes mellitus with diabetic chronic kidney disease; E78.5 Hyperlipidemia, unspecified; R47.9 Unspecified speech disturbances; R25.1 Tremor, unspecified; R07.89 Other chest pain; R41.0 Disorientation, unspecified; Z86.711 Personal history of pulmonary embolism; R29.818 Other symptoms and signs involving the nervous system; E66.9 Obesity, unspecified; Z86.73 Personal history of transient ischemic attack (TIA), and cerebral infarction without residual deficits; Z79.899 Other long term (current) drug therapy; N18.9 Chronic kidney disease, unspecified; Z79.02 Long term (current) use of antithrombotics/antiplatelets; R29.705 NIHSS score 5; R47.01 Aphasia; N40.1 Benign prostatic hyperplasia with lower urinary tract symptoms; N13.8 Other obstructive and reflux uropathy; Z68.30 Body mass index [BMI] 30.0-30.9, adult; Z79.84 Long term (current) use of oral hypoglycemic drugs; R42 Dizziness and giddiness
CPT/HCPCS: 36415; 70450; 70496; 70498; 70551; 71045; 78452; 80048; 80061; 81001; 82962; 83036; 84443; 84484; 85025; 85610; 85730; 92507; 93005; 93017; 93306; 94762; 96125; 96361; 96374; 96375; 96376; 97162; 97166; 97530; 97535; 97802; 99221; 99285; A9500; Q9967; A4216; G0378; J2785